=== PATIENT | female | born 1950 | race Caucasian/White ===

== ENCOUNTER → 2016-09-25 | Outpatient (CLI) | payer MEDICARE, OTHER ==
[~2016-09-25] MED LIST: ASPI-808 PO; AZIT500T PO; CEFD300C3 PO; DIPH25CA79 PO; IPRA3AMP INH; MOME13HF INH; PRED10TA22 PO; SERT50TA9 PO; [UNRECOGNIZED DRUG - CODE] MC
--- NOTE | 2016-09-25 14:16 | Diagnostic Imaging Report ---
PROCEDURE: US Thyroid. TECHNIQUE: Multiple real-time grayscale images were obtained of the thyroid in various projections. INDICATION: Thyroid nodule followup. FINDINGS: The right thyroid lobe is 3.1 x 1.9 x 1.4 cm. The left lobe is 3.3 x 1.3 x 1.2 cm. In the lower aspect of the right lobe, there is a 1.5 x 1 x 1 cm calcified nodule with solid appearance and no significant vascularity. In the lower aspect of the left lobe, a 0.6 cm calcified nodule is seen. When compared to 04/14/2016 exam, no significant change is seen. The background parenchyma is heterogenous which could be sequela of prior thyroiditis or multinodular goiter. IMPRESSION: Stable calcified 1.5 cm inferior right thyroid lobe nodule and subcentimeter calcification in the lower left thyroid lobe. Dictated by: Dictated on workstation # [id number]
== END ==
LOC: RAD 12:25
PROVIDERS: ATTEND Family Medicine
DX: E04.1 Nontoxic single thyroid nodule (principal)
CPT/HCPCS: 76536

== ENCOUNTER → 2016-10-05 | Outpatient (CLI) | payer MEDICARE, OTHER ==
[~2016-10-05] VITALS: Ht 160 cm; Wt 68.0 kg
[2016-10-05 14:25] VITALS: BP 120/78
[2016-10-05] MEDS: LIDOCAINE 1% INJ 20 ML (XYLOCAINE) VIAL INJ ONE (14:44)
[2016-10-05 15:06] VITALS: BP 120/80
--- NOTE | 2016-10-05 16:29 | Diagnostic Imaging Report ---
EXAMINATION: US-guided fine needle biopsy-thyroid. INDICATION: Right thyroid nodule. CONSENT: Informed consent was obtained from the patient. The risks, benefits, potential complications and alternatives were reviewed and all questions answered to the patient's satisfaction. FINDINGS: Calcified right thyroid nodule. PROCEDURE: After sterile preparation and draping, 1% lidocaine was utilized for local anesthesia. A 25-gauge hypodermic needle is introduced into the right thyroid nodule under live ultrasound guidance. After confirming adequate positioning with saved ultrasound images, multiple passes of fine needle aspiration is performed and repeated 3 times. The patient tolerated the procedure well with no immediate complications. IMPRESSION: Successful US-guided fine needle aspiration biopsy of right thyroid nodule. Dictated by: Dictated on workstation # [id number]
== END ==
LOC: RAD 13:36
PROVIDERS: ATTEND Family Medicine
DX: E04.1 Nontoxic single thyroid nodule (principal)
CPT/HCPCS: 76942

== ENCOUNTER → 2016-10-19 | Outpatient (CLI) | payer MEDICARE, OTHER ==
[~2016-10-19] VITALS: Ht 160 cm; Wt 81.6 kg
== END ==
LOC: PREOP 07:00
PROVIDERS: ATTEND Surgery
DX: Z01.818 Encounter for other preprocedural examination (principal); Z12.11 Encounter for screening for malignant neoplasm of colon; Z79.82 Long term (current) use of aspirin

== ENCOUNTER 2016-10-23 11:13 | Day surgery (SDC) | payer MEDICARE, OTHER ==
[~2016-10-23] VITALS: Ht 160 cm; Wt 81.6 kg
[2016-10-23] MEDS ORDERED: NS IV 500 ML 500 ML ONE (11:26)
[2016-10-23 11:30] VITALS: BP 132/74
[2016-10-23] MEDS ORDERED: NS IV 500 ML 500 ML IV ONE (11:45)
[2016-10-23] MEDS ORDERED: FLUMAZENIL (ROMAZICON) 0.1 MG/ML 5 ML VIAL INJ PRN (11:45)
[2016-10-23] MEDS ORDERED: NALOXONE 0.4 MG/ML 1 ML (NARCAN) VIAL IVP PRN (11:45)
[2016-10-23] MEDS ORDERED: MOME13HF IH (12:05)
[2016-10-23] MEDS ORDERED: RANI-515 PO (12:05)
[2016-10-23] MEDS ORDERED: ASPI-999 PO (12:05)
[2016-10-23] MEDS ORDERED: ATOR40TA70 PO (12:05)
[2016-10-23] MEDS ORDERED: LEVO100T7 PO (12:05)
[2016-10-23] MEDS ORDERED: SERT50TA9 PO (12:05)
[2016-10-23] MEDS ORDERED: ROPI0.5T2 PO (12:05)
[2016-10-23] MEDS ORDERED: MONT10TA24 PO (12:05)
[2016-10-23] MEDS ORDERED: CETI10TA17 PO (12:05)
[2016-10-23] MEDS ORDERED: ACLI400A2 IH (12:05)
[2016-10-23] MEDS ORDERED: fentaNYL INJECTION 100 MCG/2 ML AMP ONE ×2 (12:06→12:07)
[2016-10-23] MEDS ORDERED: MIDAZOLAM 2 MG/2 ML (VERSED) VIAL ONE ×4 (12:07)
[2016-10-23] MEDS: fentaNYL INJECTION 100 MCG/2 ML AMP IVP PRN ×2 (12:16→12:18)
--- NOTE | 2016-10-23 12:16 | Conscious Sedation/ASA ---
Conscious Sedation Pre-Proced Time Reviewed: 11:51 ASA Class: 3 Airway Mallampati Classification: ([place] appropriate class) I. II. III, IV Lungs Heart ASA score ASA 1: a normal healthy patient ASA 2: a patient with a mild systemic disease (mid diabetes, controlled hypertension, obesity ASA 3: a patient with a severe systemic disease that limits activity (angina , COPD, prior Myocardial infarction) ASA 4: a patient with an incapacitating disease that is a constant threat to life (CHF, renal failure) ASA 5: a moribund patient not expected to survive 24 hrs. (ruptured aneurysm) ASA 6: a declared brain patient whose organs are being harvested. For emergent operations, add the letter E after the classification Grade 1 Sedation Plan: Discussed options with patient/fam Note The patient is an appropriate candidate to undergo the planned procedure, sedation, and anesthesia. The patient immediately re-assessed prior to indication. SHERLY GARCIA MD Oct 23, 2016 12:15 pm
[2016-10-23] MEDS: MIDAZOLAM 2 MG/2 ML (VERSED) VIAL IVP PRN ×4 (12:17→12:27)
--- NOTE | 2016-10-23 12:38 | Endoscopy Procedure Report ---
Endoscopy Report Date: Oct 23, 2016 Preoperative Diagnosis: screening Study Performed: Colonoscopy Procedure Instrument: Colonoscope Endo Procedure/Findings Findings 1.: Polyp, Diverticulosis Recommendations: Recommendations: 1.: Colonscopy in 5 years Copy Copies To 1: AMEYA PEREZ XAVIER M MD Oct 23, 2016 12:38 pm
--- NOTE | 2016-10-23 12:40 | Discharge Inst-Simple/Standard ---
Discharge Inst-Standard Discharge Medications New, Converted or Re-Newed RX: Other Patient Instructions/Follow Up Plan of Care/Instructions/FU: repeat colonoscopy in 5 years. To call my office and schedule thyroid surgery Activity as Tolerated: Yes Discharge Diet: No Restrictions SHERLY GARCIA MD Oct 23, 2016 12:40 pm
[2016-10-23 13:00] VITALS: BP 123/52
--- NOTE | 2016-10-23 13:08 | OPERATIVE REPORT ---
DATE OF SERVICE: 10/23/2016 PROCEDURES: 1. Screening colonoscopy. 2. Polypectomy (hot biopsy). SURGEON: Sherly Garcia MD. INDICATION FOR PROCEDURE: This lady came in for screening colonoscopy. Informed consent was obtained after reviewing the procedure in detail. DESCRIPTION OF PROCEDURE: She was placed in left lateral decubitus position and her vital signs were monitored. Conscious sedation was achieved using Versed and fentanyl. Digital rectal examination was unremarkable. The colonoscope was then introduced into the rectum and advanced all the way up to the cecum. The scope was then withdrawn slowly and the mucosa examined in a systematic fashion. The quality of bowel preparation was excellent. FINDINGS: 1. Very few sigmoid diverticula. 2. A 1 mm polyp at the ascending colon that was excised with hot biopsy forceps. She tolerated the procedure well and was taken back to the nursing area in a stable condition. IMPRESSION: Screening colonoscopy. A 1 mm right colon polyp excised. Recommend repeating in 5 years. Job ID: [id number] DocumentID: [id number] Dictated Date: 10/23/2016 12:37:48 Team Assembler Date: 10/23/2016 13:08:30 Dictated By: SHERLY GARCIA MD
[2016-10-23 13:25] VITALS: BP 89/56
[2016-10-23 13:35] VITALS: BP 89/56
== END 2016-10-23 14:15 | disposition home or self-care (01) ==
LOC: ENDO 11:13
PROVIDERS: ATTEND Surgery
DX: Z12.11 Encounter for screening for malignant neoplasm of colon (principal); K63.5 Polyp of colon; E03.9 Hypothyroidism, unspecified; Z79.899 Other long term (current) drug therapy

== ENCOUNTER 2016-11-01 09:08 | Outpatient (CLI) | payer MEDICARE, OTHER ==
[~2016-11-01] VITALS: Ht 160 cm; Wt 84.4 kg
[~2016-11-01 09:08] MED LIST changes: +ACLI400A2 IH; +ASPI-999 PO; +ATOR40TA70 PO; +CETI10TA17 PO; +LEVO100T7 PO; +MOME13HF IH; +MONT10TA24 PO; +RANI-515 PO; +ROPI0.5T2 PO
[2016-11-01] MEDS ORDERED: RANI150T15 PO (09:18)
[2016-11-01 09:20] VITALS: BP 115/64
[2016-11-01 09:52] LABS: BASOPHILS % (AUTO) 0 % (0-10); EOSINOPHILS # (AUTO) 0.3 10^3/uL (0.0-0.3); EOSINOPHILS % (AUTO) 4 % (0-10); LYMPHOCYTES # (AUTO) 1.7 X 10^3 (1.0-4.0); LYMPHOCYTES % (AUTO) 19 % (12-44); MEAN CORPUSCULAR HEMOGLOBIN 31 PG (25-34); MEAN CORPUSCULAR HGB CONC 32 G/DL (32-36); MEAN CORPUSCULAR VOLUME 96 FL (80-99); MEAN PLATELET VOLUME 9.9 FL (7.4-10.4); MONOCYTES # (AUTO) 0.6 X 10^3 (0.0-1.0); MONOCYTES % (AUTO) 7 % (0-12); NEUTROPHILS % (AUTO) 70 % (42-75); PLATELET COUNT 256 10^3/uL (130-400); RED CELL DISTRIBUTION WIDTH 13.1 % (10.0-14.5); WHITE BLOOD COUNT 8.6 10^3/uL (4.3-11.0)
[2016-11-01 10:11] LABS: ANION GAP 9 MMOL/L (5-14); BLOOD UREA NITROGEN 13 MG/DL (7-18); BUN/CREATININE RATIO 15; CALCIUM 9.4 MG/DL (8.5-10.1); CARBON DIOXIDE 28 MMOL/L (21-32); CHLORIDE 104 MMOL/L (98-107); CREATININE SERUM 0.88 MG/DL (0.60-1.30); GFR ESTIMATED > 60; GLUCOSE 181 MG/DL (70-105); POTASSIUM 4.4 MMOL/L (3.6-5.0); SODIUM 141 MMOL/L (135-145)
== END 2016-11-01 11:30 ==
LOC: PREOP 09:08
PROVIDERS: ATTEND Surgery
DX: Z01.812 Encounter for preprocedural laboratory examination (principal); Z11.2 Encounter for screening for other bacterial diseases; E04.1 Nontoxic single thyroid nodule
CPT/HCPCS: 36415; 80048; 85025; 87081

== ENCOUNTER 2016-11-08 07:30 | Day surgery (SDC) | payer MEDICARE, OTHER ==
[~2016-11-08] VITALS: Ht 160 cm; Wt 84.4 kg
[~2016-11-08 07:30] MED LIST changes: +RANI150T15 PO
[2016-11-08] MEDS ORDERED: BUP/EPI 0.25% 1:200,000 (MARCAINE) 10 ML VIAL IJ ONE (07:36)
[2016-11-08] MEDS ORDERED: THROMBIN SPRAY KIT 5,000 UNIT VIAL ONE (07:36)
[2016-11-08] MEDS ORDERED: ceFAZolin 1,000 MG (ANCEF) VIAL ONE (07:44)
[2016-11-08] MEDS ORDERED: NS (IVPB) 50 ML ONE (07:45)
[2016-11-08] MEDS ORDERED: FAMOTIDINE 20MG/2ML IV (PEPCID) ONE (07:56)
[2016-11-08] MEDS ORDERED: CATHETER FLUSH 10 ML SYR IV PRN (08:00)
[2016-11-08] MEDS ORDERED: ceFAZolin 1 GM/NS 50 ML IVPB IV ONE ×2 (08:00)
[2016-11-08] MEDS ORDERED: LACTATED RINGERS 1,000 ML IV PRN (08:04)
[2016-11-08 08:06] VITALS: BP 128/55
[2016-11-08] MEDS ORDERED: FAMOTIDINE 20MG/2ML IV (PEPCID) IV ONE (08:15)
--- NOTE | 2016-11-08 08:22 | Progress Note-Pre Operative ---
Pre-Operative Progress Note H&P Reviewed The H&P was reviewed, patient examined and no changes noted. Date Seen by Provider: Nov 08, 2016 Time Seen by Provider: 08:21 Date H&P Reviewed: Nov 08, 2016 Time H&P Reviewed: 08:16 Pre-Operative Diagnosis: Bilateral thyroid nodules SHERLY GARCIA MD Nov 08, 2016 8:22 am
[2016-11-08] MEDS ORDERED: fentaNYL INJECTION 100 MCG/2 ML AMP ONE ×2 (08:24→09:07)
[2016-11-08] MEDS ORDERED: MIDAZOLAM 2 MG/2 ML (VERSED) VIAL ONE (08:24)
[2016-11-08] MEDS ORDERED: SEVOFLURANE (ULTANE) 15 ML INHAL SOLN ONE ×6 (08:24→10:32)
[2016-11-08] MEDS ORDERED: DEXAMETHASONE PF 10 MG/ML (DECADRON) VIAL ONE (08:29)
[2016-11-08] MEDS ORDERED: ONDANSETRON 4 MG/2 ML (SDV) Z0FRAN ONE (08:29)
[2016-11-08] MEDS ORDERED: SUCCINYLCHOLINE INJ 100 MG/5 ML SYR ONE (08:29)
[2016-11-08] MEDS ORDERED: LACTATED RINGERS 1,000 ML IV ONE (08:29)
[2016-11-08] MEDS ORDERED: LIDOCAINE 4% INJ (XYLOCAINE) 5ML AMP ONE (10:07)
--- NOTE | 2016-11-08 10:25 | Operative Report ---
Operative Report Date of Procedure/Surgery Nov 08, 2016 Surgeon (s) SHERLY GARCIA MD Machine Cementer (s): Not applicable Post-Operative Diagnosis Bilateral thyroid nodules Procedure Performed 1. Total thyroidectomy 2. Intraoperative nerve monitoring Description of Procedure Anesthesia Type: General Estimated blood loss (mL): 100 mL Specimen(s) collected/removed Both lobes of thyroid Description of the Procedure Indication for procedure: Evaluation for hypothyroidism included an ultrasound of the thyroid gland conforming calcified nodules involving both lobes of the thyroid, the one on the right side being about 1.5 cm in diameter. Ultrasound- guided needle biopsy was nondiagnostic, possibly due to the calcified nature of the nodule. It was therefore felt reasonable to proceed with thyroidectomy to establish a definitive diagnosis. Informed consent was obtained after reviewing the operative details and highlighting increased incidence of hematoma , due to aspirin therapy, postoperative hypocalcemia and transient hoarseness of voice. Description of procedure: She was placed supine on the operative table and general anesthesia induced using an endotracheal tube. A gram of Ancef was administered intravenously as prophylaxis against wound infection. Sequential compression devices were placed around her legs, to minimize the risk of venous thrombosis. Her neck and upper chest were prepared and draped in the usual sterile manner. Pre-emptive analgesia was established using 0.25 percent Marcaine with epinephrine. A 4 cm transverse incision was made along the skin crease of the neck and platysma incised transversely. Flaps were raised superiorly to the level of the thyroid cartilage and inferiorly to the level of the sternal notch. A few tributaries of the anterior jugular vein had to be controlled with ligaclips. I began the dissection on the left side. The lobe was retracted medially after retracting the strap muscles in a lateral direction. Middle thyroid vein was identified and controlled using Harmonic scalpel. Superior thyroid artery was controlled between 0 silk sutures, reinforced with ligaclips. Multiple branches of the inferior thyroid artery were controlled with a combination of ligaclips and Harmonic scalpel. Recurrent laryngeal nerve was identified and protected by constant visual inspection and intermittent nerve stimulation. At least one parathyroid gland was identified and preserved, along with its blood supply. The isthmus was then divided using Harmonic scalpel and the left lobe sent separately for histological examination. A similar dissection was performed on the right side. A heavily calcified nodule was apparent along the lateral aspect of the lobe. Recurrent nerve was found in its conventional position and protected by constant visual inspection and intermittent nerve stimulation technique. Both parathyroids were identified and preserved along with their blood supply. Right lobe was then sent for histologic examination separately. We had the anesthesiologist conduct Valsalva maneuver, looking for any venous bleeding. There wasn't any. Gelfoam, soaked in thrombin solution was placed along the tracheo-esophageal groove, to optimize hemostasis. Neck was then flexed, in preparation for closure. Cervical fascia was approximated using 3-0 Vicryl and platysma using the same suture material. Skin was closed using 4-0 Vicryl, in a subcuticular fashion. She tolerated the procedure well, was extubated in the operating room and taken to recovery room in a stable condition. [place], sponges and instruments were correct at the end of the operation. Findings of the Procedure Calcified bilateral thyroid nodules Allergies and Home Medications Allergies Coded Allergies: No Known Drug Allergies (Unverified , 11/01/16) Home Medications Aclidinium [place] 400 Mcg Aer.pow.ba, 400 MCG IH DAILY, (Reported) Aspirin 81 Mg Tab.chew, 81 MG PO DAILY, (Reported) Atorvastatin Calcium 40 Mg Tablet, 40 MG PO DAILY, (Reported) Cetirizine HCl 10 Mg Tablet, 10 MG PO DAILY, (Reported) Levothyroxine Sodium 100 Mcg Tablet, 100 MCG PO DAILY, (Reported) Mometasone/Formoterol 13 Gm Hfa.aer.ad, 2 PUFF IH BID, (Reported) Montelukast Sodium 10 Mg Tablet, 10 MG PO DAILY, (Reported) Ranitidine HCl 150 Mg Tablet, 150 MG PO DAILY, (Reported) Ranitidine HCl 150 Mg Tablet, 150 MG PO DAILY, (Reported) Ropinirole HCl 0.5 Mg Tablet, 0.5 MG PO DAILY, (Reported) Sertraline HCl 50 Mg Tablet, 50 MG PO HS, (Reported) SHERLY GARCIA MD Nov 08, 2016 10:25 am
[2016-11-08] MEDS ORDERED: LACTATED RINGERS 1,000 ML IV SCH (10:26)
[2016-11-08] MEDS ORDERED: LABETALOL HCL 20 MG/4 ML VIAL ONE (10:28)
[2016-11-08] MEDS ORDERED: HYDR-3812 PO ×2 (10:29→11:36)
[2016-11-08] MEDS ORDERED: fentaNYL INJECTION 100 MCG/2 ML AMP IVP PRN ×2 (10:30→10:45)
[2016-11-08] MEDS ORDERED: ONDANSETRON 4 MG/2 ML (SDV) Z0FRAN IVP PRN (10:30)
--- NOTE | 2016-11-08 10:30 | Discharge Inst-Simple/Standard ---
Discharge Inst-Standard Discharge Medications New, Converted or Re-Newed RX: RX on Chart Patient Instructions/Follow Up Plan of Care/Instructions/FU: Dressings off in a.m. Follow-up in 3 weeks. Activity as Tolerated: Yes Discharge Diet: No Restrictions SHERLY GARCIA MD Nov 08, 2016 10:30 am
[2016-11-08] MEDS ORDERED: CALCIUM CARBONATE 600 MG (CALCARB) TAB PO NR (11:30)
[2016-11-08 11:50] VITALS: BP 177/80
[2016-11-08] MEDS ORDERED: CHOL10007 PO (12:50)
[2016-11-08] MEDS: HYDROcodone/APAP 5 MG/325 MG (LORTAB) TAB PO PRN ×2 (15:03→21:10)
[2016-11-08 16:00] VITALS: BP 124/75
--- OUTSIDE RECORDS SUMMARY | 2016-11-08 17:55 | XMS REPORT | Continuity of Care Document ---
Author Author [facility] Organization [facility] Address Unknown Phone Unavailable Care Team Providers Care Tailor Women'S [employer]teration Name Role Phone Holli Salvador PCP [phone] Source Comments Some departments are not documenting in the electronic medical record. If you do not see the information that you expected, contact Release of Information in the Health Information Management department at [phone] for further assistance in locating additional records.[facility] Active Allergies and Adverse Reactions No Known Allergies Current Medications Prescription Sig. Disp. Refills Start End Date Status Date diphenhydrAMINE Take 25 mg by mouth every Active (BENADRYL) 25 mg capsule 6 hours as needed. albuterol 0.5% Inhale 2.5 mg solution as Active (PROVENTIL; VENTOLIN) 2.5 directed four times mg/0.5 mL nebu nebulizer daily. solution Mometasone-Formoterol Inhale 2 Puffs by mouth Active 200-5 mcg/actuation HFAA daily. sertraline (ZOLOFT) 50 mg Take 50 mg by mouth at Active tablet bedtime daily. Lactobacillus rhamnosus Take 1 Cap by mouth Active GG (LACTOBACILLUS daily. RHAMNOSUS (GG)) 15 billion cell cpSP ranitidine(+) (ZANTAC) Take 150 mg by mouth Active 150 mg tablet daily. aspirin 81 mg chewable Take 1 Tab by mouth 90 Tab 3 08/10/19 Active tablet daily. 16 atorvastatin (LIPITOR) 40 Take 1 Tab by mouth 90 Tab 3 08/10/19 Active mg tablet daily. 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 08/07/2015 Stroke (HCC) 08/06/2015 Respiratory failure with hypoxia (HCC) 08/06/2015 Immunizations Name Dates Previously Given Next Due Pneumococcal Vaccine 08/09/2015 (23-[place] Adult) Social History Tobacco Use Types Packs/Day Years Used Date Former Smoker Alcohol Use Drinks/Week oz/Week Comments No Last Filed Vital Signs Vital Sign Reading Time Taken Blood Pressure 133/59 08/10/2015 1:30 PM CDT Pulse 101 08/10/2015 1:30 PM CDT Temperature 36.9 C (98.4 F) 08/10/2015 1:30 PM CDT Respiratory Rate - - Height 1.6 m (5' 2.99") 08/09/2015 10:17 AM CDT Weight 68.04 kg (150 lb) 08/09/2015 10:17 AM CDT Body Mass Index 26.58 08/09/2015 10:17 AM CDT Oxygen Saturation 94% 08/10/2015 1:30 PM CDT Plan of Care Health Maintenance Due Date Last Done Comments Hepatitis C Screening 1950 Physical (Comprehensive) 1958 Exam Pertussis Vaccine 1962 Tetanus Vaccine 1968 Breast Cancer Screening 1991 Colorectal Cancer 2001 Screening Shingles Vaccine 2011 Osteoporosis Screening 2016 Prevnar/Pneumovax (#1) 2016 08/09/2015 Influenza Vaccine 01/05/2017 Results from Last 3 Months Not on file
[2016-11-08 20:00] VITALS: BP 119/76
[2016-11-08] MEDS ORDERED: rOPINIRole 0.25 MG (REQUIP) TAB PO SCH (21:00)
[2016-11-08] MEDS ORDERED: SERTRALINE 50 MG (ZOLOFT) TABLET PO SCH (21:00)
[2016-11-08] MEDS ORDERED: RT-SYMBICORT 160/4.5 MCG INHALER PER PUFF IH SCH (21:00)
[2016-11-08] MEDS ORDERED: MONTELUKAST 10 MG (SINGULAIR) TAB PO SCH (21:00)
[2016-11-08] MEDS ORDERED: ATORVASTATIN 40 MG (LIPITOR) TABLET PO SCH (21:00)
[2016-11-08] MEDS ORDERED: NON-FORMULARY MEDICATION 1 EA EA (Mometasone/Formoterol (Dulera 200 Mcg/5 Mcg Inhaler) 2 P IH SCH (21:00)
[2016-11-08] MEDS ORDERED: NON-FORMULARY MEDICATION 1 EA EA (Ropinirole HCl 0.5 MG) PO SCH (21:00)
[2016-11-08] MEDS ORDERED: FAMOTIDINE 20 MG (PEPCID) TABLET PO SCH (21:00)
[2016-11-09 00:35] VITALS: BP 126/57
[2016-11-09 04:00] VITALS: BP 114/63
[2016-11-09] MEDS: HYDROcodone/APAP 5 MG/325 MG (LORTAB) TAB PO PRN (05:25)
[2016-11-09 05:39] LABS: ANION GAP 9 MMOL/L (5-14); BLOOD UREA NITROGEN 16 MG/DL (7-18); BUN/CREATININE RATIO 19; CALCIUM 8.4 MG/DL (8.5-10.1); CARBON DIOXIDE 27 MMOL/L (21-32); CHLORIDE 105 MMOL/L (98-107); CREATININE SERUM 0.83 MG/DL (0.60-1.30); GFR ESTIMATED > 60; GLUCOSE 133 MG/DL (70-105); POTASSIUM 4.2 MMOL/L (3.6-5.0); SODIUM 141 MMOL/L (135-145)
[2016-11-09] MEDS ORDERED: LEVOTHYROXINE 100 MCG (LEVOTHROID) TAB PO SCH (06:30)
[2016-11-09 08:00] VITALS: BP 105/51
[2016-11-09] MEDS ORDERED: UMECLIDINIUM BROMIDE (INCRUSE ELLIPTA) 7'S IH SCH (08:00)
[2016-11-09] MEDS ORDERED: FAMOTIDINE 20 MG (PEPCID) TABLET PO SCH (09:00)
[2016-11-09] MEDS ORDERED: raNItidine (ZANTAC) 150 MG TAB NON-FORMULARY PO SCH (09:00)
[2016-11-09] MEDS ORDERED: LORATADINE (CLARITIN) 10 MG TAB PO SCH (09:00)
[2016-11-09] MEDS ORDERED: ACLIDINIUM BROMIDE 400 MCG IH SCH (09:00)
[2016-11-09] MEDS ORDERED: VITAMIN D3 1,000 UNITS (CHOLECALCIFEROL) TABLET PO SCH (09:00)
[2016-11-09] MEDS ORDERED: ASPIRIN 81 MG CHEW (CHILDREN'S ASA) PO SCH (09:00)
[2016-11-09] MEDS ORDERED: NON-FORMULARY MEDICATION 1 EA EA (Cholecalciferol (Vitamin D3) (Vitamin D3) 1,000 UNIT) PO SCH (09:00)
[2016-11-09] MEDS ORDERED: NON-FORMULARY MEDICATION 1 EA EA (Cetirizine HCl 10 MG) PO SCH (09:00)
[2016-11-09] MEDS ORDERED: RT-ADVAIR HFA 115/21 MCG PER PUFF IH SCH (09:55)
[2016-11-09 10:45] VITALS: BP 105/51
== END 2016-11-09 10:48 | disposition home or self-care (01) ==
LOC: SDC 07:30 → 4TH 11:54 → ENPENDDIS 11-09 10:00 → SDC 11-09 10:48
PROVIDERS: ATTEND Surgery
DX: E04.1 Nontoxic single thyroid nodule (principal); Z87.891 Personal history of nicotine dependence; J44.9 Chronic obstructive pulmonary disease, unspecified; E03.9 Hypothyroidism, unspecified; E78.5 Hyperlipidemia, unspecified; F32.9 Major depressive disorder, single episode, unspecified; K21.9 Gastro-esophageal reflux disease without esophagitis; E66.9 Obesity, unspecified; Z86.73 Personal history of transient ischemic attack (TIA), and cerebral infarction without residual deficits; Z68.33 Body mass index [BMI] 33.0-33.9, adult; Z79.899 Other long term (current) drug therapy; Z79.82 Long term (current) use of aspirin
CPT/HCPCS: 36415; 80048; 88307; 88311; 94664; 94760

== ENCOUNTER → 2016-11-14 | Outpatient (CLI) | payer MEDICARE, OTHER ==
[~2016-11-14] MED LIST changes: +CHOL10007 PO; +HYDR-3812 PO
--- NOTE | 2016-11-14 12:54 | Diagnostic Imaging Report ---
EXAMINATION: PA and lateral views of the chest. INDICATION: Cough and dyspnea. COMPARISON: 08/02/2015. FINDINGS: The lungs are hyperinflated. There is interstitial thickening in the mid and lower lung zones similar to 08/02/2015. No superimposed focal infiltrate. No effusion or pneumothorax. The heart size is slightly enlarged with minimal vascular congestion. The mediastinum and dilan appear unremarkable. IMPRESSION: COPD. Cardiomegaly with minimal vascular congestion. Report was stat faxed to office of Dr. Salvador @ 12:52 PM/adilson. Dictated by: Dictated on workstation # [id number]
== END ==
LOC: RAD 11:25
PROVIDERS: ATTEND Family Medicine
DX: J44.9 Chronic obstructive pulmonary disease, unspecified (principal); I51.7 Cardiomegaly
CPT/HCPCS: 71020

== ENCOUNTER → 2016-12-21 | Outpatient (CLI) | payer MEDICARE, OTHER | LOC: LAB 11:28 | PROVIDERS: ATTEND Surgery | DX: E89.0 Postprocedural hypothyroidism (principal) | CPT/HCPCS: 36415; 84436; 84443 ==

== ENCOUNTER → 2017-01-22 | Outpatient (CLI) | payer MEDICARE, OTHER ==
--- NOTE | 2017-01-22 10:55 | Diagnostic Imaging Report ---
EXAMINATION: Left breast ultrasound. INDICATION: Left breast lesion at the 2 o'clock zone, followup. FINDINGS: There is a 5 x 6 x 5 mm hypoechoic lesion at the 2 o'clock zone with increased through-transmission and no internal vascularity seen. This is 4 cm from the nipple. Some images do not demonstrate the borders very well but the borders appear to be circumscribed. When compared to the previous exam of 05/05/2016, no definite change is seen. IMPRESSION: The 6 mm hypoechoic lesion at the 2 o'clock zone is favored to be a complicated cyst with internal debris. Its depth slightly limits evaluation. A 6 month followup ultrasound and mammogram would be recommended to reevaluate. ACR BI-RADS Category 3: Probably benign findings. Dictated by: Dictated on workstation # [id number]
--- NOTE | 2017-01-25 08:26 | Diagnostic Imaging Report ---
Left breast diagnostic mammogram. CAD is utilized. 05/05/2016. FINDINGS: Focal asymmetry along the upper outer aspect of the left breast is again seen with no adverse development. It is inseparable from adjacent parenchyma on tomographic views. IMPRESSION: Focal asymmetry in the upper outer aspect of the left breast demonstrates no significant change. Ultrasound evaluation pending. ACR BI-RADS Category 0: Incomplete. (Needs additional imaging evaluation). Result letter will be mailed to the patient. Note: At least 10% of breast cancer is not imaged by mammography. Dictated by: Dictated on workstation # [id number]
== END ==
LOC: RAD 08:05
PROVIDERS: ATTEND Family Medicine
DX: N60.02 Solitary cyst of left breast (principal)
CPT/HCPCS: 76642

== ENCOUNTER → 2017-06-06 | Outpatient (CLI) | payer MEDICARE, OTHER ==
[~2017-06-06] MED LIST changes: +ACHD5005 PO; -HYDR-3812 PO
== END ==
LOC: LAB 13:33
PROVIDERS: ATTEND Surgery
DX: E04.1 Nontoxic single thyroid nodule (principal); R53.83 Other fatigue
CPT/HCPCS: 36415; 84436; 84443

== ENCOUNTER → 2018-01-16 | Outpatient (CLI) | payer MEDICARE, OTHER ==
[~2018-01-16] MED LIST changes: -IPRA3AMP INH; +IPRA3AMP31 INH; -RANI150T15 PO; +RANI150T46 PO
--- NOTE | 2018-01-16 13:48 | Diagnostic Imaging Report ---
PROCEDURE: US carotid duplex, bilateral. TECHNIQUE: Multiple real-time grayscale images were obtained over the carotid arteries in various projections, bilaterally. Additional duplex Doppler and color Doppler images were also obtained. INDICATION: Carotid artery stenosis. FINDINGS: Both common carotid arteries demonstrate normal velocities. No flow is identified in the right internal carotid artery, consistent with ICA occlusion. There is plaque in the proximal left ICA. Only mild velocity elevation in the proximal left ICA is seen reaching 135 cm/s. External carotid arteries are unremarkable. Both vertebral arteries demonstrate antegrade flow. IMPRESSION: 1. Right ICA occlusion. 2. Mild left carotid plaque. No hemodynamically significant stenosis is identified. Parameters based on the consensus panel Mcbride-Scale and Doppler ultrasound criteria published March 2003, Radiology, Volume 229. DOPPLER (peak systolic velocity M/S Right Left CCA .61 .87 ICA Proximal N/A 1.35 ICA Mid N/A 1.01 ICA Distal N/A .81 RATIO N/A 1.6 ECA .59 .85 VERT .76 .74 Dictated by: Dictated on workstation # [id number]
== END ==
LOC: RAD 12:19
PROVIDERS: ATTEND Family Medicine
DX: I65.23 Occlusion and stenosis of bilateral carotid arteries (principal)
CPT/HCPCS: 93880

== ENCOUNTER 2018-03-15 16:17 | Inpatient (IN) | payer MEDICARE, OTHER ==
[2018-03-15] VITALS (8 sets, daily range): BP systolic 91–125; BP diastolic 48–66
[~2018-03-15] VITALS: Ht 160 cm; Wt 108.0 kg
--- OUTSIDE RECORDS SUMMARY | 2018-03-15 16:22 | XMS REPORT | Clinical Summary ---
Author Author [facility] Organization [facility] Address Unknown Phone Unavailable Care Team Providers Care Pressing Department Supervisor Name Role Phone Nandini Dickey RN Unavailable Unavailable Holli Salvador MD PCP Renetta Suárez DO Unavailable Unavailable Source Comments Some departments are not documenting in the electronic medical record. If you do not see the information that you expected, contact Release of Information in the Health Information Management department at [phone] for further assistance in locating additional records.[facility] Allergies No Known Allergies Current Medications Prescription Sig. [...] Smoker Alcohol Use Drinks/Week oz/Week Comments No Sex Assigned at Date Recorded Not on file Last Filed Vital Signs Vital Sign Reading Time Taken Blood Pressure 133/59 08/10/2015 1:30 PM CDT Pulse 101 08/10/2015 1:30 PM CDT Temperature 36.9 C (98.4 F) 08/10/2015 1:30 PM CDT Respiratory Rate - - Oxygen Saturation 94% 08/10/2015 1:30 PM CDT Inhaled Oxygen - - Concentration Weight 68 kg (150 lb) 08/09/2015 10:17 AM CDT Height 160 cm (5' 2.99") 08/09/2015 10:17 AM CDT Body Mass Index 26.58 08/09/2015 10:17 AM CDT Plan of Treatment Health Maintenance Due Date Last Done Comments HEPATITIS C SCREENING 1950 PHYSICAL (COMPREHENSIVE) 1958 EXAM PERTUSSIS VACCINE 1962 TETANUS VACCINE 1968 BREAST CANCER SCREENING 1991 COLORECTAL CANCER 2001 SCREENING SHINGLES RECOMBINANT 2001 VACCINE (1 of 2) OSTEOPOROSIS 2016 SCREENING/MONITORING PNEUMONIA (PCV13/PPSV23) 08/08/2016 08/09/2015 VACCINES (1 of 2 - PCV13) INFLUENZA VACCINE 12/05/2017 Results Not on filefrom Last 3 Months
--- OUTSIDE RECORDS SUMMARY | 2018-03-15 16:23 | XMS REPORT | Continuity of Care Document ---
Author Author [facility] Organization [facility] Address Unknown Phone Unavailable Allergies Active Description Code Type Severity Reaction Onset Reported/Identified Relationship to Patient Clinical Status Yes No Known Drug Allergies [id number] Drug Allergy Unknown N/A 11/01/2016 Medications There is no data. Problems Date Dx Coded Attending Type Code Diagnosis Diagnosed By 08/03/2015 Ot 305.1 08/03/2015 Ot 786.09 08/03/2015 AMEYA PEREZ DO S Ot D72.829 08/03/2015 DAVID PEREZ DOQUELINE S Ot F17.210 08/03/2015 KLAUDIANDDAVID TARANGO DOQUELINE S Ot F43.21 08/03/2015 KLAUDIANDSUKHDEEP DODAVIDAMEYA S Ot J20.9 08/03/2015 KLAUDIANDSUKHDEEP DODAVIDAMEYA S Ot J44.0 08/03/2015 KLAUDIANDSUKHDEEP DODAVIDAMEYA S Ot R00.0 08/03/2015 KLAUDIANDSUKHDEEP DODAVIDAMEYA S Ot R09.02 08/03/2015 KLAUDIANDSUKHDEEP DODAVIDAMEYA S Ot T49.0X5A 08/03/2015 KLAUDIANDSUKHDEEP DODAVIDAMEYA S Ot D72.829 08/03/2015 KLAUDIANDSUKHDEEP DODAVIDAMEYA S Ot F17.210 08/03/2015 KLAUDIANDER DO AMEYA S Ot F43.21 08/03/2015 KLAUDIANDER DODAVIDAMEYA S Ot J20.9 08/03/2015 KLAUDIANDSUKHDEEP DODAVIDAMEYA S Ot J44.0 08/03/2015 KLAUDIANDSUKHDEEP DODAVIDAMEYA S Ot R00.0 08/03/2015 KLAUDIANDER DODAVIDAMEYA S Ot R09.02 08/03/2015 KLAUDIANDSUKHDEEP DODAVIDAMEYA S Ot T49.0X5A 08/05/2015 KLAUDIANDDAVID TARANGO DOQUELINE S Ot D72.829 ELEVATED WHITE BLOOD CELL COUNT, UNSPECI 08/05/2015 HARVINDER PEREZ DOLINE S Ot F17.210 NICOTINE DEPENDENCE, CIGARETTES, UNCOMPL 08/05/2015 HARVINDER PEREZ DOLINE S Ot F43.21 ADJUSTMENT DISORDER WITH DEPRESSED MOOD 08/05/2015 CHRIS GALDAMEZ, AMEYA S Ot I65.23 OCCLUSION AND STENOSIS OF BILATERAL WALLS 08/05/2015 KLAUDIANDHARVINDER TARANGO DOLINE S Ot I65.29 OCCLUSION AND STENOSIS OF UNSPECIFIED CA 08/05/2015 KLAUDIANDSUKHDEEP GALDAMEZ, AMEYA S Ot J20.9 ACUTE BRONCHITIS, UNSPECIFIED 08/05/2015 CHRIS GALDAMEZ, AMEYA S Ot J44.0 CHRONIC OBSTRUCTIVE PULMON DISEASE W ACU 08/05/2015 CHRIS GALDAMEZ, AMEYA S Ot J80 ACUTE RESPIRATORY DISTRESS SYNDROME 08/05/2015 CHRIS GALDAMEZ, AMEYA S Ot R00.0 TACHYCARDIA, UNSPECIFIED 08/05/2015 CHRIS GALDAMEZ, AMEYA S Ot R09.02 08/05/2015 HARVINDER PEREZ DOLINE S Ot T49.0X5A ADVERSE EFFECT OF LOCAL ANTIFUNG/INFECT/ 09/08/2015 Ot 305.1 TOBACCO USE DISORDER 09/08/2015 Ot 786.09 RESPIRATORY ABNORM NEC 09/09/2015 SEYMOUR CHAIREZ [employer] TURNING MACHINE FEEDER Ot G47.9 SLEEP DISORDER, UNSPECIFIED 09/09/2015 SEYMOUR CHAIREZ [employer] TURNING MACHINE FEEDER Ot I63.9 CEREBRAL INFARCTION, UNSPECIFIED 09/09/2015 SEYMOUR CHAIREZ [employer] TURNING MACHINE FEEDER Ot R06.02 SHORTNESS OF BREATH 09/09/2015 SEYMOUR CHAIREZ AIR TURNING MACHINE FEEDER Ot R09.02 HYPOXEMIA 09/09/2015 SEYMOUR CHAIREZ AIR TURNING MACHINE FEEDER Ot G47.9 SLEEP DISORDER, UNSPECIFIED 09/09/2015 SEYMOUR CHAIREZ AIR TURNING MACHINE FEEDER Ot I63.9 CEREBRAL INFARCTION, UNSPECIFIED 09/09/2015 SEYMOUR CHAIREZ AIR TURNING MACHINE FEEDER Ot R06.02 SHORTNESS OF BREATH 09/09/2015 SEYMOUR CHAIREZ AIR TURNING MACHINE FEEDER Ot R09.02 HYPOXEMIA 10/01/2015 SEYMOUR CHAIREZ AIR TURNING MACHINE FEEDER Ot G47.9 SLEEP DISORDER, UNSPECIFIED 10/01/2015 SEYMOUR CHAIREZ AIR TURNING MACHINE FEEDER Ot I63.9 CEREBRAL INFARCTION, UNSPECIFIED 10/01/2015 MIHAELA, SEYMOUR E AIR TURNING MACHINE FEEDER Ot R06.02 SHORTNESS OF BREATH 10/01/2015 GABI CHAIREZINE Maxwell AIR TURNING MACHINE FEEDER Ot R09.02 HYPOXEMIA 10/02/2015 MIHAELA, SEYMOUR Maxwell [employer] TURNING MACHINE FEEDER Ot G47.9 SLEEP DISORDER, UNSPECIFIED 10/02/2015 GABI CHAIREZINE Maxwell AIR TURNING MACHINE FEEDER Ot I63.9 CEREBRAL INFARCTION, UNSPECIFIED 10/02/2015 MIHAELA SEYMOUR Maxwell AIR TURNING MACHINE FEEDER Ot R06.02 SHORTNESS OF BREATH 10/02/2015 MIHAELA SEYMOUR E AIR TURNING MACHINE FEEDER Ot R09.02 HYPOXEMIA 10/15/2015 GABI CHAIREZINE Maxwell AIR TURNING MACHINE FEEDER Ot G47.9 SLEEP DISORDER, UNSPECIFIED 10/15/2015 MIHAELA SEYMOUR Maxwell AIR TURNING MACHINE FEEDER Ot I63.9 CEREBRAL INFARCTION, UNSPECIFIED 10/15/2015 MIHAELA SEYMOUR Arreola AIR TURNING MACHINE FEEDER Ot R06.02 SHORTNESS OF BREATH 10/15/2015 GABI CHAIREZINE Maxwell AIR TURNING MACHINE FEEDER Ot R09.02 HYPOXEMIA 10/15/2015 Ot 305.1 TOBACCO USE DISORDER 10/15/2015 Ot 786.09 RESPIRATORY ABNORM NEC 10/15/2015 MIHAELA SEYMOUR Arreola [employer] TURNING MACHINE FEEDER Ot G47.9 SLEEP DISORDER, UNSPECIFIED 10/15/2015 GABI CHAIREZINE Maxwell AIR TURNING MACHINE FEEDER Ot I63.9 CEREBRAL INFARCTION, UNSPECIFIED 10/15/2015 MIHAELA, SEYMOUR Arreola AIR TURNING MACHINE FEEDER Ot R06.02 SHORTNESS OF BREATH 10/15/2015 GABI CHAIREZINE Maxwell AIR TURNING MACHINE FEEDER Ot R09.02 HYPOXEMIA 10/16/2015 MIHAELA, SEYMOUR Arreola [employer] TURNING MACHINE FEEDER Ot G47.36 SLEEP RELATED HYPOVENTILATION IN CONDITI 10/16/2015 GABI CHAIREZINE E AIR TURNING MACHINE FEEDER Ot G47.61 PERIODIC LIMB MOVEMENT DISORDER 10/16/2015 MIHAELA, SEYMOUR E AIR TURNING MACHINE FEEDER Ot R06.83 SNORING 10/26/2015 MIHAELAGABISEYMOUR E AIR TURNING MACHINE FEEDER Ot G47.36 SLEEP RELATED HYPOVENTILATION IN CONDITI 10/26/2015 MIHAELAGABI TARANGOINE E AIR TURNING MACHINE FEEDER Ot G47.61 PERIODIC LIMB MOVEMENT DISORDER 10/26/2015 SEYMOUR CHAIREZ AIR TURNING MACHINE FEEDER Ot R06.83 SNORING 11/18/2015 SEYMOUR CHAIREZ AIR TURNING MACHINE FEEDER Ot R06.02 SHORTNESS OF BREATH 11/18/2015 MIHAELASEYMOUR TARANGO AIR TURNING MACHINE FEEDER Ot R09.02 HYPOXEMIA 12/02/2015 ORENDER DO, AMEYA S Ot I65.23 OCCLUSION AND STENOSIS OF BILATERAL WALLS 01/16/2016 MIHAELASEYMOUR TARANGO AIR TURNING MACHINE FEEDER Ot R06.02 SHORTNESS OF BREATH 01/16/2016 SEYMOUR CHAIREZ AIR TURNING MACHINE FEEDER Ot R09.02 HYPOXEMIA 04/14/2016 Ot 305.1 TOBACCO USE DISORDER 04/14/2016 Ot 786.09 RESPIRATORY ABNORM NEC 04/14/2016 SEYMOUR CHAIREZ AIR TURNING MACHINE FEEDER Ot G47.9 SLEEP DISORDER, UNSPECIFIED 04/14/2016 SEYMOUR CHAIREZ AIR TURNING MACHINE FEEDER Ot I63.9 CEREBRAL INFARCTION, UNSPECIFIED 04/14/2016 SEYMOUR CHAIREZ AIR TURNING MACHINE FEEDER Ot R06.02 SHORTNESS OF BREATH 04/14/2016 SEYMOUR CHAIREZ AIR TURNING MACHINE FEEDER Ot R09.02 HYPOXEMIA 04/14/2016 KLAUDIANDER , AMEYA S Ot I65.23 OCCLUSION AND STENOSIS OF BILATERAL WALLS 04/14/2016 SEYMOUR CHAIREZ AIR TURNING MACHINE FEEDER Ot R06.02 SHORTNESS OF BREATH 04/14/2016 SEYMOUR CHAIREZ AIR TURNING MACHINE FEEDER Ot R09.02 HYPOXEMIA 04/19/2016 KLAUDIANDER DO, AMEYA S Ot E03.9 HYPOTHYROIDISM, UNSPECIFIED 04/19/2016 ORENDER DO, AMEYA S Ot I65.23 OCCLUSION AND STENOSIS OF BILATERAL WALLS 04/19/2016 KLAUDIANDER DO, AMEYA S Ot Z12.31 ENCNTR SCREEN MAMMOGRAM FOR MALIGNANT NE 04/26/2016 KLAUDIANDER DO, AMEYA S Ot E03.9 HYPOTHYROIDISM, UNSPECIFIED 04/26/2016 ORENDER DO, AMEYA S Ot E04.1 NONTOXIC SINGLE THYROID NODULE 04/26/2016 KLAUDIANDER DO, AMEYA S Ot E03.9 HYPOTHYROIDISM, UNSPECIFIED 04/26/2016 ORENDER DO, AMEYA S Ot I65.23 OCCLUSION AND STENOSIS OF BILATERAL WALLS 04/26/2016 ORENDER DO, AMEYA S Ot Z12.31 ENCNTR SCREEN MAMMOGRAM FOR MALIGNANT NE 05/08/2016 KLAUDIANDER DO, AMEYA S Ot N63 UNSPECIFIED LUMP IN BREAST 05/16/2016 KLAUIDANDER DO, AMEYA S Ot E03.9 HYPOTHYROIDISM, UNSPECIFIED 05/16/2016 ORENDER DO, AMEYA S Ot E04.1 NONTOXIC SINGLE THYROID NODULE 05/17/2016 KLAUDIANDHARVINDER TARANGO DOLINE S Ot N63 UNSPECIFIED LUMP IN BREAST 09/22/2016 Ot 305.1 TOBACCO USE DISORDER 09/22/2016 Ot 786.09 RESPIRATORY ABNORM NEC 09/22/2016 SEYMOUR CHAIREZ AIR TURNING MACHINE FEEDER Ot G47.9 SLEEP DISORDER, UNSPECIFIED 09/22/2016 SEYMOUR CHAIREZ AIR TURNING MACHINE FEEDER Ot I63.9 CEREBRAL INFARCTION, UNSPECIFIED 09/22/2016 SEYMOUR CHAIREZ AIR TURNING MACHINE FEEDER Ot R06.02 SHORTNESS OF BREATH 09/22/2016 SEYMOUR CHAIREZ AIR TURNING MACHINE FEEDER Ot R09.02 HYPOXEMIA 09/22/2016 KLAUDIANDER DAVID GALDAMEZAMEYA S Ot I65.23 OCCLUSION AND STENOSIS OF BILATERAL WALLS 09/22/2016 SEYMOUR CHAIREZ APRN Ot R06.02 SHORTNESS OF BREATH 09/22/2016 SEYMUOR CHAIREZ AIR TURNING MACHINE FEEDER Ot R09.02 HYPOXEMIA 09/22/2016 HARVINDER PEREZ DOLINE S Ot E03.9 HYPOTHYROIDISM, UNSPECIFIED 09/22/2016 KLAUDIANDER DO, AMEYA S Ot I65.23 OCCLUSION AND STENOSIS OF BILATERAL WALLS 09/22/2016 KLAUDIANDHARVINDER TARANGO DOLINE S Ot Z12.31 ENCNTR SCREEN MAMMOGRAM FOR MALIGNANT NE 09/22/2016 HARVINDER PEREZ DOLINE S Ot E03.9 HYPOTHYROIDISM, UNSPECIFIED 09/22/2016 KLAUDIANDER HARVINDER GALDAMEZLINE S Ot E04.1 NONTOXIC SINGLE THYROID NODULE 09/22/2016 HARVINDER PEREZ DOLINE S Ot N63 UNSPECIFIED LUMP IN BREAST 09/25/2016 Ot 305.1 TOBACCO USE DISORDER 09/25/2016 Ot 786.09 RESPIRATORY ABNORM NEC 09/25/2016 SEYMOUR CHAIREZ AIR TURNING MACHINE FEEDER Ot G47.9 SLEEP DISORDER, UNSPECIFIED 09/25/2016 SEYMOUR CHAIREZ AIR TURNING MACHINE FEEDER Ot I63.9 CEREBRAL INFARCTION, UNSPECIFIED 09/25/2016 SEYMOUR CHAIREZ APRN Ot R06.02 SHORTNESS OF BREATH 09/25/2016 SEYMOUR CHAIREZ AIR TURNING MACHINE FEEDER Ot R09.02 HYPOXEMIA 09/25/2016 KLAUDIANDER DAVID GALDAMEZAMEYA S Ot I65.23 OCCLUSION AND STENOSIS OF BILATERAL WALLS 09/25/2016 SEYMOUR CHAIERZ AIR TURNING MACHINE FEEDER Ot R06.02 SHORTNESS OF BREATH 09/25/2016 SEYMOUR CHAIREZ APRN Ot R09.02 HYPOXEMIA 09/25/2016 ORENDER DO, AMEYA S Ot E03.9 HYPOTHYROIDISM, UNSPECIFIED 09/25/2016 ORENDER DO, AMEYA S Ot I65.23 OCCLUSION AND STENOSIS OF BILATERAL WALLS 09/25/2016 ORENDER DO, AMEYA S Ot Z12.31 ENCNTR SCREEN MAMMOGRAM FOR MALIGNANT NE 09/25/2016 ORENDER DO, AMEYA S Ot E03.9 HYPOTHYROIDISM, UNSPECIFIED 09/25/2016 ORENDER DO, AMEYA S Ot E04.1 NONTOXIC SINGLE THYROID NODULE 09/25/2016 ORENDER DO, AMEYA S Ot N63 UNSPECIFIED LUMP IN BREAST 09/25/2016 Ot 305.1 TOBACCO USE DISORDER 09/25/2016 Ot 786.09 RESPIRATORY ABNORM NEC 09/25/2016 SEYMOUR CHAIREZ APRN Ot G47.9 SLEEP DISORDER, UNSPECIFIED 09/25/2016 SEYMOUR CHAIREZ APRN Ot I63.9 CEREBRAL INFARCTION, UNSPECIFIED 09/25/2016 SEYMOUR CHAIREZ APRN Ot R06.02 SHORTNESS OF BREATH 09/25/2016 SEYMOUR CHAIREZ APRN Ot R09.02 HYPOXEMIA 09/25/2016 ORENDER DO, AMEYA S Ot I65.23 OCCLUSION AND STENOSIS OF BILATERAL WALLS 09/25/2016 SEYMOUR CHAIREZ APRN Ot R06.02 SHORTNESS OF BREATH 09/25/2016 SEYMOUR CHAIREZ APRN Ot R09.02 HYPOXEMIA 09/25/2016 ORENDER DO, AMEYA S Ot E03.9 HYPOTHYROIDISM, UNSPECIFIED 09/25/2016 ORENDER DO, AMEYA S Ot I65.23 OCCLUSION AND STENOSIS OF BILATERAL WALLS 09/25/2016 ORENDER DO, AMEYA S Ot Z12.31 ENCNTR SCREEN MAMMOGRAM FOR MALIGNANT NE 09/25/2016 ORENDER DO, AMEYA S Ot E03.9 HYPOTHYROIDISM, UNSPECIFIED 09/25/2016 ORENDER DO, AMEYA S Ot E04.1 NONTOXIC SINGLE THYROID NODULE 09/25/2016 ORENDER DO, AMEYA S Ot N63 UNSPECIFIED LUMP IN BREAST 10/07/2016 AMEYA PEREZ DO S Ot E04.1 NONTOXIC SINGLE THYROID NODULE 10/18/2016 AMEYA PEREZ DO S Ot E04.1 NONTOXIC SINGLE THYROID NODULE 10/19/2016 SEYMOUR CHAIREZ AIR TURNING MACHINE FEEDER Ot R06.02 SHORTNESS OF BREATH 10/19/2016 SEYMOUR CHAIREZ APRN Ot R09.02 HYPOXEMIA 10/23/2016 SHERLY GARCIA MD Ot E03.9 HYPOTHYROIDISM, UNSPECIFIED 10/23/2016 JOSE ALVARADO, SHERLY Billy Ot K63.5 POLYP OF COLON 10/23/2016 SHERLY GARCIA MD Ot Z12.11 ENCOUNTER FOR SCREENING FOR MALIGNANT NE 10/23/2016 SHERLY GARCIA MD Ot Z79.899 OTHER CARE HOME (CURRENT) DRUG THERAPY 10/24/2016 SHERLY GARCIA MD Ot Z01.818 ENCOUNTER FOR OTHER PREPROCEDURAL EXAMIN 10/24/2016 SHERLY GARCIA MD Ot Z12.11 ENCOUNTER FOR SCREENING FOR MALIGNANT NE 10/24/2016 SHERLY GARCIA MD Ot Z79.82 TESTER COMPRESSED GASES (CURRENT) USE OF ASPIRIN 10/25/2016 SHERLY GARCIA MD Ot Z01.818 ENCOUNTER FOR OTHER PREPROCEDURAL EXAMIN 10/25/2016 SHERLY GARCIA MD Ot Z12.11 ENCOUNTER FOR SCREENING FOR MALIGNANT NE 10/25/2016 SHERLY GARCIA MD Ot Z79.82 TESTER COMPRESSED GASES (CURRENT) USE OF ASPIRIN 10/26/2016 AMEYA PEREZ DO S Ot E04.1 NONTOXIC SINGLE THYROID NODULE 11/01/2016 SEYMOUR CHAIREZ AIR TURNING MACHINE FEEDER Ot R06.02 SHORTNESS OF BREATH 11/01/2016 SEYMOUR CHAIREZ APRN Ot R09.02 HYPOXEMIA 11/01/2016 SHERLY GARCIA MD Ot E04.1 NONTOXIC SINGLE THYROID NODULE 11/01/2016 SHERLY GARCIA MD Ot Z01.812 ENCOUNTER FOR PREPROCEDURAL LABORATORY E 11/01/2016 SHERLY GARCIA MD Ot Z11.2 ENCOUNTER FOR SCREENING FOR OTHER BACTER 11/02/2016 SHERLY GARCIA MD Ot E04.1 NONTOXIC SINGLE THYROID NODULE 11/02/2016 SHERLY GARCIA MD Ot Z01.812 ENCOUNTER FOR PREPROCEDURAL LABORATORY E 11/02/2016 SHERLY GARCIA MD Ot Z11.2 ENCOUNTER FOR SCREENING FOR OTHER BACTER 11/09/2016 SHERLY GARCIA MD Ot E03.9 HYPOTHYROIDISM, UNSPECIFIED 11/09/2016 SHERLY GARCIA MD Ot E04.1 NONTOXIC SINGLE THYROID NODULE 11/09/2016 SHERLY GARCIA MD Ot E66.9 OBESITY, UNSPECIFIED 11/09/2016 SHERLY GARCIA MD Ot E78.5 HYPERLIPIDEMIA, UNSPECIFIED 11/09/2016 SHERLY GARCIA MD Ot F32.9 MAJOR DEPRESSIVE DISORDER, SINGLE EPISOD 11/09/2016 SHERLY GARCIA MD Ot J44.9 CHRONIC OBSTRUCTIVE PULMONARY DISEASE, U 11/09/2016 SHERLY GARCIA MD Ot K21.9 GASTRO-ESOPHAGEAL REFLUX DISEASE WITHOUT 11/09/2016 SHERLY GARCIA MD Ot Z68.33 BODY MASS INDEX (BMI) 33.0-33.9, ADULT 11/09/2016 SHERLY GARCIA MD Ot Z79.82 CARE HOME (CURRENT) USE OF ASPIRIN 11/09/2016 SHERLY GARCIA MD Ot Z79.899 OTHER TESTER COMPRESSED GASES (CURRENT) DRUG THERAPY 11/09/2016 SHERLY GARCIA MD Ot Z86.73 PRSNL HX OF TIA (TIA), AND CEREB INFRC W 11/09/2016 SHERLY GARCIA MD Ot Z87.891 PERSONAL HISTORY OF NICOTINE DEPENDENCE 11/09/2016 SHERLY GARCIA MD Ot E03.9 HYPOTHYROIDISM, UNSPECIFIED 11/09/2016 SHERLY GARCIA MD Ot E04.1 NONTOXIC SINGLE THYROID NODULE 11/09/2016 SHERLY GARCIA MD Ot E66.9 OBESITY, UNSPECIFIED 11/09/2016 SHERLY GARCIA MD Ot E78.5 HYPERLIPIDEMIA, UNSPECIFIED 11/09/2016 SHERLY GARCIA MD Ot F32.9 MAJOR DEPRESSIVE DISORDER, SINGLE EPISOD 11/09/2016 SHERLY GARCIA MD Ot J44.9 CHRONIC OBSTRUCTIVE PULMONARY DISEASE, U 11/09/2016 SHERLY GARCIA MD Ot K21.9 GASTRO-ESOPHAGEAL REFLUX DISEASE WITHOUT 11/09/2016 SHERLY GARCIA MD Ot Z68.33 BODY MASS INDEX (BMI) 33.0-33.9, ADULT 11/09/2016 SHERLY GARCIA MD Ot Z79.82 CARE HOME (CURRENT) USE OF ASPIRIN 11/09/2016 SHERLY GARCIA MD Ot Z79.899 OTHER TESTER COMPRESSED GASES (CURRENT) DRUG THERAPY 11/09/2016 SHERLY GARCIA MD Ot Z86.73 PRSNL HX OF TIA (TIA), AND CEREB INFRC W 11/09/2016 SHERLY GARCIA MD Ot Z87.891 PERSONAL HISTORY OF NICOTINE DEPENDENCE 11/10/2016 HARVINDER PEREZ DOLINE S Ot E04.1 NONTOXIC SINGLE THYROID NODULE 11/16/2016 SHERLY GARCIA MD Ot E03.9 HYPOTHYROIDISM, UNSPECIFIED 11/16/2016 SHERLY GARCIA MD Ot E04.1 NONTOXIC SINGLE THYROID NODULE 11/16/2016 SHERLY GARCIA MD Ot E66.9 OBESITY, UNSPECIFIED 11/16/2016 SHERLY GARCIA MD Ot E78.5 HYPERLIPIDEMIA, UNSPECIFIED 11/16/2016 SHERLY GARCIA MD Ot F32.9 MAJOR DEPRESSIVE DISORDER, SINGLE EPISOD 11/16/2016 SHERLY GARCIA MD Ot J44.9 CHRONIC OBSTRUCTIVE PULMONARY DISEASE, U 11/16/2016 SHERLY GARCIA MD Ot K21.9 GASTRO-ESOPHAGEAL REFLUX DISEASE WITHOUT 11/16/2016 SHERLY GARCIA MD Ot Z68.33 BODY MASS INDEX (BMI) 33.0-33.9, ADULT 11/16/2016 SHERLY GARCIA MD Ot Z79.82 TESTER COMPRESSED GASES (CURRENT) USE OF ASPIRIN 11/16/2016 SHERLY GARCIA MD Ot Z79.899 OTHER CARE HOME (CURRENT) DRUG THERAPY 11/16/2016 SHERLY GARCIA MD Ot Z86.73 PRSNL HX OF TIA (TIA), AND CEREB INFRC W 11/16/2016 SHERLY GARCIA MD Ot Z87.891 PERSONAL HISTORY OF NICOTINE DEPENDENCE 12/05/2016 DAVID PEREZ DOQUELINE S Ot I51.7 CARDIOMEGALY 12/05/2016 DAVID PEREZ DOQUELINE S Ot J44.9 CHRONIC OBSTRUCTIVE PULMONARY DISEASE, U 12/06/2016 DAVID PEREZ DOQUELINE S Ot E04.1 NONTOXIC SINGLE THYROID NODULE 12/06/2016 KLAUDIANDER , AMEYA S Ot E04.1 NONTOXIC SINGLE THYROID NODULE 01/12/2017 JOSE ALVARADO, SHERLY Billy Ot E89.0 POSTPROCEDURAL HYPOTHYROIDISM 01/19/2017 KLAUDIANDER DO, AMEYA S Ot R92.2 INCONCLUSIVE MAMMOGRAM 01/22/2017 KLAUDIANDER DO, AMEYA S Ot R92.2 INCONCLUSIVE MAMMOGRAM 01/23/2017 KLAUDIANDER DO, AMEYA S Ot N60.02 SOLITARY CYST OF LEFT BREAST 02/15/2017 KLAUDIANDER DO, AMEYA S Ot N60.02 SOLITARY CYST OF LEFT BREAST 06/07/2017 JOSE ALVARADO, SHERLY Billy Ot E04.1 NONTOXIC SINGLE THYROID NODULE 06/07/2017 JOSE ALVARADO, SHERLY Billy Ot R53.83 OTHER FATIGUE 06/28/2017 JOSE ALVARADO, SHERLY Billy Ot E04.1 NONTOXIC SINGLE THYROID NODULE 06/28/2017 JOSE ALVARADO, SHERLY Billy Ot R53.83 OTHER FATIGUE 01/15/2018 SEYMOUR CHAIREZ AIR TURNING MACHINE FEEDER Ot G47.9 SLEEP DISORDER, UNSPECIFIED 01/15/2018 SEYMOUR CHAIREZ AIR TURNING MACHINE FEEDER Ot I63.9 CEREBRAL INFARCTION, UNSPECIFIED 01/15/2018 SEYMOUR CHAIREZ AIR TURNING MACHINE FEEDER Ot R06.02 SHORTNESS OF BREATH 01/15/2018 SEYMOUR CHAIREZ AIR TURNING MACHINE FEEDER Ot R09.02 HYPOXEMIA 01/15/2018 KLAUDIANDER DO, AMEYA S Ot I65.23 OCCLUSION AND STENOSIS OF BILATERAL WALLS 01/15/2018 SEYMOUR CHAIREZ AIR TURNING MACHINE FEEDER Ot R06.02 SHORTNESS OF BREATH 01/15/2018 SEYMOUR CHAIREZ AIR TURNING MACHINE FEEDER Ot R09.02 HYPOXEMIA 01/15/2018 KLAUDIANDER DO, AMEYA S Ot E03.9 HYPOTHYROIDISM, UNSPECIFIED 01/15/2018 ORENDER DO, AMEYA S Ot I65.23 OCCLUSION AND STENOSIS OF BILATERAL WALLS 01/15/2018 KLAUDIANDER DO, AMEYA S Ot Z12.31 ENCNTR SCREEN MAMMOGRAM FOR MALIGNANT NE 01/15/2018 KLAUDIANDER DO, AMEYA S Ot E03.9 HYPOTHYROIDISM, UNSPECIFIED 01/15/2018 KLAUDIANDER DO, AMEYA S Ot E04.1 NONTOXIC SINGLE THYROID NODULE 01/15/2018 CHRIS GALDAMEZ AMEYA S Ot N63 UNSPECIFIED LUMP IN BREAST 01/15/2018 CHRIS GALDAMEZ AMEYA S Ot E04.1 NONTOXIC SINGLE THYROID NODULE 01/15/2018 CHRIS GALDAMEZ AMEYA S Ot E04.1 NONTOXIC SINGLE THYROID NODULE 01/15/2018 JOSE ALVARADO, SHERLY Billy Ot Z01.818 ENCOUNTER FOR OTHER PREPROCEDURAL EXAMIN 01/15/2018 SHERLY GARCIA MD Ot Z12.11 ENCOUNTER FOR SCREENING FOR MALIGNANT NE 01/15/2018 JOSE ALVARADO, SHERLY Billy Ot Z79.82 CARE HOME (CURRENT) USE OF ASPIRIN 01/15/2018 CHRIS GALDAMEZ AMEYA S Ot I51.7 CARDIOMEGALY 01/15/2018 KANCHANSUKHDEEP GALDAMEZ AMEYA S Ot J44.9 CHRONIC OBSTRUCTIVE PULMONARY DISEASE, U 01/15/2018 SHERLY GARCIA MD Ot E89.0 POSTPROCEDURAL HYPOTHYROIDISM 01/15/2018 KANCHANSUKHDEEP GALDAMEZ AMEYA S Ot N60.02 SOLITARY CYST OF LEFT BREAST 01/15/2018 JOSE ALVARADO, SHERLY Billy Ot E04.1 NONTOXIC SINGLE THYROID NODULE 01/15/2018 JOSE ALVARADO, SHERLY Billy Ot R53.83 OTHER FATIGUE 01/15/2018 HCRIS GALDAMEZ AMEYA S Ot I65.22 OCCLUSION AND STENOSIS OF LEFT CAROTID A 01/17/2018 KLAUDIAROSA MARIA GALDAMEZ AMEYA S Ot I65.23 OCCLUSION AND STENOSIS OF BILATERAL WALLS 02/06/2018 KANCHANSUKHDEEP GALDAMEZ AMEYA S Ot I65.23 OCCLUSION AND STENOSIS OF BILATERAL WALLS Procedures There is no data. Results Test Result Range Complete blood count (CBC) with automated white blood cell (WBC) differential - 11/01/16 09:40 Blood leukocytes automated count (number/volume) 8.6 10*3/uL 4.3-11.0 Blood erythrocytes automated count (number/volume) 4.30 10*6/uL 4.35-5.85 Venous blood hemoglobin measurement (mass/volume) 13.3 g/dL 11.5-16.0 Blood hematocrit (volume fraction) 41 % 35-52 Automated erythrocyte mean corpuscular volume 96 [foz_us] 80-99 Automated erythrocyte mean corpuscular hemoglobin (mass per erythrocyte) 31 pg 25-34 Automated erythrocyte mean corpuscular hemoglobin concentration measurement ( mass/volume) 32 g/dL 32-36 Automated erythrocyte distribution width ratio 13.1 % 10.0-14.5 Automated blood platelet count (count/volume) 256 10*3/uL 130-400 Automated blood platelet mean volume measurement 9.9 [foz_us] 7.4-10.4 Automated blood neutrophils/100 leukocytes 70 % 42-75 Automated blood lymphocytes/100 leukocytes 19 % 12-44 Blood monocytes/100 leukocytes 7 % 0-12 Automated blood eosinophils/100 leukocytes 4 % 0-10 Automated blood basophils/100 leukocytes 0 % 0-10 Blood neutrophils automated count (number/volume) 6.0 10*3 1.8-7.8 Blood lymphocytes automated count (number/volume) 1.7 10*3 1.0-4.0 Blood monocytes automated count (number/volume) 0.6 10*3 0.0-1.0 Automated eosinophil count 0.3 10*3/uL 0.0-0.3 Automated blood basophil count (count/volume) 0.0 10*3/uL 0.0-0.1 Whole blood basic metabolic panel - 11/01/16 09:40 Serum or plasma sodium measurement (moles/volume) 141 mmol/L 135-145 Serum or plasma potassium measurement (moles/volume) 4.4 mmol/L 3.6-5.0 Serum or plasma chloride measurement (moles/volume) 104 mmol/L 98-107 Carbon dioxide 28 mmol/L 21-32 Serum or plasma anion gap determination (moles/volume) 9 mmol/L 5-14 Serum or plasma urea nitrogen measurement (mass/volume) 13 mg/dL 7-18 Serum or plasma creatinine measurement (mass/volume) 0.88 mg/dL 0.60-1.30 Serum or plasma urea nitrogen/creatinine mass ratio 15 NRG Serum or plasma creatinine measurement with calculation of estimated glomerular filtration rate > NRG Serum or plasma glucose measurement (mass/volume) 181 mg/dL 70-105 Serum or plasma calcium measurement (mass/volume) 9.4 mg/dL 8.5-10.1 Methicillin resistant Staphylococcus aureus (MRSA) screening culture - 09:40 Methicillin resistant Staphylococcus aureus (MRSA) screening culture NEG NRG Whole blood basic metabolic panel - 11/09/16 05:09 Serum or plasma sodium measurement (moles/volume) 141 mmol/L 135-145 Serum or plasma potassium measurement (moles/volume) 4.2 mmol/L 3.6-5.0 Serum or plasma chloride measurement (moles/volume) 105 mmol/L 98-107 Carbon dioxide 27 mmol/L 21-32 Serum or plasma anion gap determination (moles/volume) 9 mmol/L 5-14 Serum or plasma urea nitrogen measurement (mass/volume) 16 mg/dL 7-18 Serum or plasma creatinine measurement (mass/volume) 0.83 mg/dL 0.60-1.30 Serum or plasma urea nitrogen/creatinine mass ratio 19 NRG Serum or plasma creatinine measurement with calculation of estimated glomerular filtration rate > NRG Serum or plasma glucose measurement (mass/volume) 133 mg/dL 70-105 Serum or plasma calcium measurement (mass/volume) 8.4 mg/dL 8.5-10.1 THYROID STIMULATING HORMONE - 12/21/16 11:50 THYROID STIMULATING HORMONE 0.94 u[iU]/mL 0.35-4.94 Thyroxine (T4) measurement - 12/21/16 11:50 T4 (thyroxine) 14.5 % 5.5-12.0 Encounters ACCT No. Visit Date/Time Discharge Status Pt. Type Provider Facility Loc./Unit Complaint [id number] 01/08/2018 13:42:00 01/08/2018 23:59:59 CLS Outpatient AMEAY PEREZ DO [facility] RAD CAROTID ARTERY STENOSIS [id number] 06/06/2017 13:33:00 06/06/2017 23:59:59 CLS Outpatient SHERLY GARCIA MD [facility] LAB THYROID NODULE/ FATIQUE [id number] 01/22/2017 08:05:00 01/22/2017 23:59:59 CLS Outpatient AMEYA PEREZ DO [facility] RAD F/U L BREAST CYST/ AB MAMMO [id number] 12/21/2016 11:28:00 12/21/2016 23:59:59 CLS Outpatient SHERLY GARCIA MD [facility] LAB TOTAL THYROIDECTOMY [id number] 11/14/2016 11:25:00 11/14/2016 23:59:59 CLS Outpatient ORENDER DO AMEYA S [facility] RAD COUGH,DYSPNEA [id number] 11/08/2016 07:30:00 11/09/2016 10:48:00 DIS Outpatient SHERLY GARCIA MD [facility] SDC THYROID NODULES [id number] 11/01/2016 09:08:00 11/01/2016 11:30:00 DIS Outpatient SHERLY GARCIA MD [facility] PREOP THYROID NODULES [id number] 10/23/2016 11:13:00 10/23/2016 14:15:00 DIS Outpatient SHERLY GARCIA MD [facility] ENDO SCREENING [id number] 10/19/2016 07:00:00 10/19/2016 23:59:59 CLS Outpatient SHERLY GARCIA MD [facility] PREOP COLONOSCOPY [id number] 10/05/2016 13:36:00 10/05/2016 23:59:59 CLS Outpatient KLAUDIANDSUKHDEEP GALDAMEZ AMEYA S [facility] RAD BILATERAL THYROID NODULE [id number] 09/25/2016 12:25:00 09/25/2016 23:59:59 CLS Outpatient KLAUDIANDSUKHDEEP GALDAMEZ AMEYA S [facility] RAD THYROID NODULE E04.1 [id number] 05/05/2016 07:52:00 05/05/2016 23:59:59 CLS Outpatient KLAUDIANDSUKHDEEP GALDAMEZ AMEYA S [facility] RAD LT BREAST FOCAL ASYMMETRY [id number] 04/25/2016 10:27:00 04/25/2016 23:59:59 CLS Outpatient KLAUDIANDER DO AMEYA S [facility] CARD HYPOTHYROIDISM, NODULE [id number] 04/14/2016 11:27:00 04/14/2016 23:59:59 CLS Outpatient KLAUDIANDSUKHDEEP GALDAMEZ AMEYA S [facility] RAD SCREENING,CAROTID ARTERY STENOSIS,HYPOTHYROIDISM [id number] 01/17/2016 08:15:00 01/17/2016 23:59:59 CLS Preadmit SEYMOUR CHAIREZ APRN [facility] PULM SOB,HYPOXEMIA REQUIRING OXYGEN [id number] 01/13/2016 09:00:00 01/16/2016 00:01:00 DIS Outpatient SEYMOUR CHAIREZ APRN [facility] PULM SOB,HYPOXEMIA REQUIRING OXYGEN [id number] 11/02/2015 17:38:00 11/02/2015 23:59:59 CLS Outpatient AMEYA PEREZ DO [facility] RAD SOB,HYPOXEMIA [id number] 10/15/2015 20:02:00 10/16/2015 07:05:00 DIS Outpatient SEYMOUR CHAIREZ APRN [facility] SLEEP EXCESSIVE DAYTIME SLEEPINESS,HYPERSOMNIA [id number] 09/08/2015 14:12:00 09/08/2015 23:59:59 CLS Outpatient SEYMOUR CHAIREZ APRN [facility] RT SOB,HYPOXEMIA REQUIRING OXYGEN [id number] 03/15/2018 16:18:00 ACT Emergency ROXANA BERNARDO [facility] ER SOB [id number] 07/31/2015 14:58:00 ACT Inpatient AMEYA PEREZ DO [facility] 4TH COPD EXACERBATION HYPOXIA AMS [id number] 10/24/2011 16:50:00 Document Registration
[2018-03-15] MEDS ORDERED: NS IV 1000 ML 1,000 ML IV ONE ×3 (16:27→21:15)
[2018-03-15] MEDS ORDERED: RT-ALBUTEROL/IPRATROPIUM 3 ML (DUONEB) VIAL INH ONE (16:30)
[2018-03-15] MEDS ORDERED: methylPREDNISolone 125 MG (Solu-MEDROL) VIAL IM ONE (16:30)
[2018-03-15] MEDS ORDERED: RT-ALBUTEROL SULF 2.5 MG/3 ML PRE-MIX VIAL INH STA (16:39)
[2018-03-15 16:45] LABS: BASOPHILS % (AUTO) 0 % (0-10); EOSINOPHILS % (AUTO) 0 % (0-10); HEMATOCRIT 43 % (35-52); HEMOGLOBIN 14.1 G/DL (11.5-16.0); LYMPHOCYTES # (AUTO) 0.5 X 10^3 (1.0-4.0); LYMPHOCYTES % (AUTO) 3 % (12-44); MEAN CORPUSCULAR HEMOGLOBIN 32 PG (25-34); MEAN CORPUSCULAR HGB CONC 33 G/DL (32-36); MEAN CORPUSCULAR VOLUME 97 FL (80-99); MONOCYTES # (AUTO) 0.3 X 10^3 (0.0-1.0); MONOCYTES % (AUTO) 2 % (0-12); NEUTROPHILS # (AUTO) 15.1 X 10^3 (1.8-7.8); NEUTROPHILS % (AUTO) 95 % (42-75); PLATELET COUNT 331 10^3/uL (130-400); RED BLOOD COUNT 4.45 10^6/uL (4.35-5.85); RED CELL DISTRIBUTION WIDTH 12.7 % (10.0-14.5)
[2018-03-15] MEDS ORDERED: methylPREDNISolone 125 MG (Solu-MEDROL) VIAL IVP ONE (16:45)
[2018-03-15 16:54] LABS: ABG BASE EXCESS -0.7 MMOL/L (-2.5-2.5); ABG OXYGEN SATURATION 92 % (94-100); ABG PCO2 38 MMHG (35-45); ABG PO2 62 MMHG (79-93); ABG TCO2 24.6 MMOL/L (21.0-31.0)
[2018-03-15 16:58] LABS: ALLENS TEST POSITIVE; INSPIRED O2 12 L; PATIENT TEMP 98.4; VENTILATOR NO
[2018-03-15 17:00] LABS: BAND NEUTROPHILS 38 %; BASOPHILS % (MANUAL) 0 %; EOSINOPHILS % (MANUAL) 0 %; LYMPHOCYTES % (MANUAL) 5 %; METAMYELOCYTES % 1 %; MONOCYTES % (MANUAL) 1 %; NEUTROPHILS % (MANUAL) 55 %; RBC MORPH NORMAL; TOXIC GRANULATION/VACUOLAZATIO 1+
[2018-03-15 17:02] LABS: ALANINE AMINOTRANSFERASE 13 U/L (0-55); ALKALINE PHOSPHATASE 85 U/L (40-136); BILIRUBIN,TOTAL 1.9 MG/DL (0.1-1.0); BUN/CREATININE RATIO 11; CARBON DIOXIDE 25 MMOL/L (21-32); CHLORIDE 98 MMOL/L (98-107); CREATININE SERUM 1.31 MG/DL (0.60-1.30); GFR ESTIMATED 41; GLUCOSE 268 MG/DL (70-105); MAGNESIUM 1.4 MG/DL (1.8-2.4); POTASSIUM 3.6 MMOL/L (3.6-5.0); SODIUM 140 MMOL/L (135-145); TOTAL PROTEIN 7.5 GM/DL (6.4-8.2)
--- NOTE | 2018-03-15 17:18 | Diagnostic Imaging Report ---
INDICATION: Shortness of air. COMPARISON STUDY: Chest from 11/14/2016. FINDINGS: Portable view of the chest demonstrates the heart size to be normal. Vascularity appears normal. Infiltrates are present throughout the lungs, greatest centering in the lower lobes. Mild infiltrates are seen in the left perihilar region. IMPRESSION: There are bilateral pulmonary infiltrates, right greater than left. No pleural effusions are seen. Dictated by: Dictated on workstation # [id number]
[2018-03-15] MEDS ORDERED: NS IV 1000 ML 1,000 ML IV SCH (17:22)
--- NOTE | 2018-03-15 17:22 | ED Cough/URI ---
General Chief Complaint: Respiratory Problems Stated Complaint: SOB Nursing Triage Note: PT PRESENTS TO ED ACCOMPANIED BY ADULT DAUGHTER. PT WHEELED TO ROOM NINE AND ASSISTED INTO COT. PT REPROTS SOA/COUGH/CHILLS/MALAISE X 3 DAYS. REPORTS WORSE TODAY. PT HOME 02 SAT PROBE READ 70% ON 2 L NC PULMONARY FELLOW. Source: patient, family (DAUGHTER) Exam Limitations: no limitations History of Present Illness Date Seen by Provider: Mar 15, 2018 Time Seen by Provider: 16:25 Initial Comments 67 yo female patient presents to the ED with c/o SOA, cough, chills, and malaise x3 days. Patient was noted to have an SaO2 of approximately 70% on 2 L NC PULMONARY FELLOW. Patient does have a h/o COPD and wears O2 as needed. Timing/Duration: getting worse, other (3 day onset) Severity/Quality: productive cough (clear productive cough) Prior Episodes/Possible Cause: frequent episodes Modifying Factors: Worse With Activity, Worse With Coughing Allergies and Home Medications Allergies Coded Allergies: No Known Drug Allergies (Unverified , 03/15/18) Home Medications Aspirin 81 Mg Tablet.dr, 81 MG PO DAILY, (Reported) Atorvastatin Calcium 40 Mg Tablet, 40 MG PO HS, (Reported) Cetirizine HCl 10 Mg Tablet, 10 MG PO DAILY, (Reported) Cholecalciferol (Vitamin D3) 1,000 Unit Capsule, 1,000 UNIT PO DAILY, (Reported) Levothyroxine Sodium 112 Mcg Tablet, 112 MCG PO DAILY, (Reported) Mometasone/Formoterol 13 Gm Hfa.aer.ad, 2 PUFF IH BID, (Reported) Montelukast Sodium 10 Mg Tablet, 10 MG PO HS, (Reported) Ranitidine HCl 150 Mg Tablet, 150 MG PO DAILY, (Reported) Ropinirole HCl 0.5 Mg Tablet, 0.5 MG PO HS, (Reported) Sertraline HCl 50 Mg Tablet, 50 MG PO HS, (Reported) Patient Home Medication List Home Medication List Reviewed: Yes Review of Systems Review of Systems Constitutional: chills, fever, malaise EENTM: nose congestion; No ear pain, No eye pain, No throat pain Respiratory: see HPI, cough; No hemoptysis, No orthopnea; phlegm, short of breath, wheezing Cardiovascular: No chest pain, No edema, No palpitations, No syncope Gastrointestinal: No abdominal pain, No constipation, No diarrhea, No hematemesis; loss of appetite; No melena, No nausea, No vomiting Genitourinary: no symptoms reported Musculoskeletal: other (generalized bodyaches) Skin: no symptoms reported Psychiatric/Neurological: No Symptoms Reported All Other Systems Reviewed Negative Unless Noted: Yes (Negative excepted noted.) Past Zgeceov-Xwpgbs-Fwwdfi Hx Past Med/Social Hx: Reviewed Nursing Past Med/Soc Hx Patient Social History Alcohol Use: Denies Use Recreational Drug Use: No Smoking Status: Former Smoker Former Smoker, Quit: Oct 20, 2015 Recent Foreign Travel: No Contact w/Someone Who Travel: No Recent Infectious Disease Expo: No Recent Hopitalizations: No Physical Abuse: No Sexual Abuse: No Mistreated: No Fear: No Immunizations Up To Date Tetanus Booster (TDap): Unknown Date of Pneumonia Vaccine: Feb 14, 2016 Date of Influenza Vaccine: Feb 14, 2016 Seasonal Allergies Seasonal Allergies: No Past Medical History Surgeries: Yes Adenoidectomy, Tonsillectomy Respiratory: Yes (02 1L AT NIGHT AND NEEDED) COPD Cardiac: Yes High Cholesterol Neurological: Yes (essential tremor LEFT HAND) Stroke Reproductive Disorders: No Sexually Transmitted Disease: No HIV/AIDS: No Genitourinary: No Gastrointestinal: Yes Gastroesophageal Reflux, Polyps Musculoskeletal: No Endocrine: Yes (THYROID NODULES) Loss of Vision: Bilateral Hearing Impairment: Denies Cancer: No Psychosocial: Yes Depression Integumentary: No Blood Disorders: No Adverse Reaction/Blood Tranf: No (N/A) Family Medical History Reviewed Nursing Family Hx Congenital heart disease 19 FATHER No Pertinent Family Hx, CVA, Hypertension Physical Exam Vital Signs - First Documented 03/15/18 03/15/18 16:27 16:57 Temp 98.4 Pulse 116 Resp 18 B/P (MAP) 114/48 (70) Pulse Ox 91 O2 Delivery OxyMask O2 Flow Rate 12.00 Capillary Refill : Less Than 3 Seconds Height: 5'3.00" Weight: 185lbs. 0.0oz. 83.844380yf; 33.0 BMI Method:Stated General Appearance: WD/WN, no apparent distress HEENT: PERRL/EOMI, TMs normal, pharyngeal erythema; No tonsillar exudate Neck: non-tender, supple, normal inspection Respiratory: respiratory distress, decreased breath sounds, rales Cardiovascular: normal peripheral pulses, no murmur, tachycardia Gastrointestinal: normal bowel sounds, non tender, soft, no organomegaly Extremities: no calf tenderness, normal capillary refill, other (trace pedal edema bilaterally) Neurologic/Psychiatric: alert, normal mood/affect, oriented x 3 Skin: normal color, warm/dry Focused Exam Lactate Level Time of Focused Exam: 18:50 Respiratory: No Accessory Muscle Use, No Respiratory Distress, Expiration, Rhonci, Other (BS overall improved bilaterally. improved aeration bilaterally.) Cardiovascular: No Murmur, Normal Peripheral Pulses, Tachycardia Capillary Refill: Less Than 3 Seconds Peripheral Pulses: 2+ Dorsalis Pedis (R), 2+ Left Dors-Pedis (L), 2+ Radial Pulses (R), 2+ Radial Pulses (L) Skin: normal color, warm/dry; No cyanosis, No diaphoresis, No ecchymosis, No jaundice, No mottled, No rash Lactic Acid Level Laboratory Tests Test 03/15/18 16:32 Lactic Acid Level 6.48 MMOL/L (0.50-2.00) *H Progress/Results/Core Measures Suspected Sepsis Recent Fever Within 48 Hours: No Infection Criteria Present: Suspected New Infection New/Unexplained Altered Menta: Yes Sepsis Screen: No Definite Risk SIRS Temperature:98.4 Pulse: 116 Respiratory Rate: 18 Blood Pressure 114 /48 Mean: 70 Laboratory Tests 03/15/18 16:32: INR Comment 1.4, Total Bilirubin 1.9H Results/Orders Lab Results Laboratory Tests Test 03/15/18 16:32 03/15/18 16:48 Range/Units White Blood Count 16.0 H 4.3-11.0 10^3/uL Red Blood Count 4.45 4.35-5.85 10^6/uL Hemoglobin 14.1 11.5-16.0 G/DL Hematocrit 43 35-52 % Mean Corpuscular Volume 97 80-99 FL Mean Corpuscular Hemoglobin 32 25-34 PG Mean Corpuscular Hemoglobin Concent 33 32-36 G/DL Red Cell Distribution Width 12.7 10.0-14.5 % Platelet Count 331 130-400 10^3/uL Mean Platelet Volume 10.0 7.4-10.4 FL Neutrophils (%) (Auto) 95 H 42-75 % Lymphocytes (%) (Auto) 3 L 12-44 % Monocytes (%) (Auto) 2 0-12 % Eosinophils (%) (Auto) 0 0-10 % Basophils (%) (Auto) 0 0-10 % Neutrophils # (Auto) 15.1 H 1.8-7.8 X 10^3 Lymphocytes # (Auto) 0.5 L 1.0-4.0 X 10^3 Monocytes # (Auto) 0.3 0.0-1.0 X 10^3 Eosinophils # (Auto) 0.0 0.0-0.3 10^3/uL Basophils # (Auto) 0.0 0.0-0.1 10^3/uL Neutrophils % (Manual) 55 % Lymphocytes % (Manual) 5 % Monocytes % (Manual) 1 % Eosinophils % (Manual) 0 % Basophils % (Manual) 0 % Metamyelocytes % 1 % Band Neutrophils 38 % Toxic Granulation 1+ Blood Morphology Comment NORMAL Prothrombin Time 17.6 H 12.2-14.7 SEC INR Comment 1.4 0.8-1.4 Activated Partial Thromboplast Time 29 24-35 SEC Sodium Level 140 135-145 MMOL/L Potassium Level 3.6 3.6-5.0 MMOL/L Chloride Level 98 98-107 MMOL/L Carbon Dioxide Level 25 21-32 MMOL/L Anion Gap 17 H 5-14 MMOL/L Blood Urea Nitrogen 15 7-18 MG/DL Creatinine 1.31 H 0.60-1.30 MG/DL Estimat Glomerular Filtration Rate 41 BUN/Creatinine Ratio 11 Glucose Level 268 H 70-105 MG/DL Lactic Acid Level 6.48 *H 0.50-2.00 MMOL/L Calcium Level 9.0 8.5-10.1 MG/DL Corrected Calcium 9.0 8.5-10.1 MG/DL Magnesium Level 1.4 L 1.8-2.4 MG/DL Total Bilirubin 1.9 H 0.1-1.0 MG/DL Aspartate Amino Transf (AST/SGOT) 16 5-34 U/L Alanine Aminotransferase (ALT/SGPT) 13 0-55 U/L Alkaline Phosphatase 85 40-136 U/L Troponin I < 0.30 <0.30 NG/ML Total Protein 7.5 6.4-8.2 GM/DL Albumin 4.0 3.2-4.5 GM/DL Blood Gas Puncture Site R RADIAL Blood Gas Patient Temperature 98.4 Arterial Blood pH 7.40 7.37-7.43 Arterial Blood Partial Pressure CO2 38 35-45 MMHG Arterial Blood Partial Pressure O2 62 L 79-93 MMHG Arterial Blood HCO3 23 23-27 MMOL/L Arterial Blood Total CO2 24.6 21.0-31.0 MMOL/L Arterial Blood Oxygen Saturation 92 L 94-100 % Arterial Blood Base Excess -0.7 -2.5-2.5 MMOL/L Emil Test POSITIVE Blood Gas Ventilator Setting NO Blood Gas Inspired Oxygen 12 L Micro Results Microbiology 03/15/18 Blood Culture - Preliminary, Resulted No growth 03/15/18 Influenza Types A,B Antigen (YU) - Final, Complete 03/15/18 MRSA Screen - Final, Complete MRSA not isolated My Orders Orders - ROXANA BECERRA Saline Lock/Iv-Start (03/15/18 16:20) Ekg Tracing (03/15/18 16:20) O2 (03/15/18 16:20) Monitor-Rhythm Ecg Trace Only (03/15/18 16:20) Cbc With Automated Diff (03/15/18 16:20) Comprehensive Metabolic Panel (03/15/18 16:20) Magnesium (03/15/18 16:20) Troponin I (03/15/18 16:20) Chest 1 View, Ap/Pa Only (03/15/18 16:20) Albuterol/Ipra Inhalation Soln (Duoneb I (03/15/18 16:30) Svn Small Volume Nebulizer (03/15/18 16:20) Influenza A And B Antigens (03/15/18 16:27) Ns Iv 1000 Ml (Sodium Chloride 0.9%) (03/15/18 16:27) Methylprednisolone Sod Succ (Solu-Medrol (03/15/18 16:30) Arterial Blood Gas (03/15/18 16:39) Albuterol Pre-Mix Nebs (Rt) (Proventil (03/15/18 16:39) Svn Small Volume Nebulizer (03/15/18 16:39) Methylprednisolone Sod Succ (Solu-Medrol (03/15/18 16:45) Manual Differential (03/15/18 16:32) Arterial Blood Draw (03/15/18 ) Blood Culture (03/15/18 17:22) Sputum Culture (03/15/18 17:22) Protime With Inr (03/15/18 17:22) Partial Thromboplastin Time (03/15/18 17:22) Lactic Acid Analyzer (03/15/18 17:22) Ns Iv 1000 Ml (Sodium Chloride 0.9%) (03/15/18 17:22) Cefepime Injection (Maxipime Injection) (03/15/18 17:30) Medications Given in ED Vital Signs/I&O 03/15/18 03/15/18 03/15/18 16:27 16:57 17:00 Temp 98.4 Pulse 116 Resp 18 B/P (MAP) 114/48 (70) Pulse Ox 91 92 95 O2 Delivery OxyMask OxyMask High Flow N/C O2 Flow Rate 12.00 12.00 11.00 Capillary Refill : Less Than 3 Seconds Blood Pressure Mean: 70 ECG Initial ECG Impression Date: Mar 15, 2018 Initial ECG Impression Time: 16:51 Initial ECG Rate: 114 Initial ECG Rhythm: S.Tach Comment sinus tachycardia. no STEMI or arrhythmia. ECG reviewed with Dr. Dodson. Diagnostic Imaging Diagonstic Imaging: Xray Plain Films/CT/US/NM/MRI: chest Comments CHEST 1 VIEW, AP/PA ONLY INDICATION: Shortness of air. COMPARISON STUDY: Chest from 11/14/2016. FINDINGS: Portable view of the chest demonstrates the heart size to be normal. Vascularity appears normal. Infiltrates are present throughout the lungs, greatest centering in the lower lobes. Mild infiltrates are seen in the left perihilar region. IMPRESSION: There are bilateral pulmonary infiltrates, right greater than left. No pleural effusions are seen. Dictated by: Dictated on workstation # [id number] Reviewed: Reviewed by Me (radiology report reviewed by me) Departure Communication (Admissions) Time/Spoke to Admitting Phy: 17:30 dr. burns graciously accepts pt to her internal medicine service for dr. uribe. Time/Spoke to Consulting Phy: 17:40 dr. lopez notified of consult. patient seen and evaluated. initial labs, an ABG, and cxr obtained. pt was given a duoneb tx with little improvement. she was subsequently given an hour long albuterol treatment with improvement in breath sounds and bilateral aeration. pt does report feeling much better with the nebulizer treatment. a lactic acid and blood cultures were drawn for an elevated WBC count of 16 and a HR of 114. Pt was noted to have an elevated lactic acid and elevated creatinine. all laboratory findings, diagnostic study findings, and plan for admission discussed with the patient and family. all verbalize understanding and agree with the treatment plan. Dr. Saini notified of plan for admit. He agrees with the plan of care. 1850 I attest to the focused exam as listed above. Pseudomonal Risk: COPD Patient allergy/sensitivity/re: None Impression Primary Impression: Sepsis Qualified Codes: A41.9 - Sepsis, unspecified organism Additional Impressions: Bilateral pneumonia Qualified Codes: J18.1 - Lobar pneumonia, unspecified organism COPD (chronic obstructive pulmonary disease) Qualified Codes: J44.1 - Chronic obstructive pulmonary disease with (acute) exacerbation Diabetes mellitus type 2, uncontrolled Qualified Codes: E11.65 - Type 2 diabetes mellitus with hyperglycemia Acute renal failure Qualified Codes: N17.9 - Acute kidney failure, unspecified Disposition: 09 ADMITTED INPATIENT Condition: Stable Admissions Decision to Admit Reason: Admit from ER (General) Decision to Admit/Date: Mar 15, 2018 Time/Decision to Admit Time: 17:20 Departure-Patient Inst. Referrals: AMEYA URIBE DO (PCP/Family) Primary Care Physician ROXANA BECERRA Mar 15, 2018 17:22
[2018-03-15] MEDS ORDERED: NS IV 500 ML 500 ML IV ONE (17:29)
[2018-03-15] MEDS ORDERED: PIPERACILLIN SODIUM/TAZOBACTAM 4.5 GM in NS (IVPB) 100 ML IV ONE (17:30)
[2018-03-15] MEDS ORDERED: CEFEPIME INJECTION 1,000 MG in NS (IVPB) 50 ML IV ONE (17:30)
[2018-03-15 17:38] LABS: INR 1.4 (0.8-1.4); PROTHROMBIN TIME PATIENT 17.6 SEC (12.2-14.7)
--- OUTSIDE RECORDS SUMMARY | 2018-03-15 18:21 | XMS REPORT | Clinical Summary ---
Author Author [facility] Organization [facility] Address Unknown Phone Unavailable Care Team Providers Care Sales Operations Lead Name Role Phone Nandini Dickey RN Unavailable Unavailable Holli Salvador MD PCP Renetta Suárez DO Unavailable Unavailable Source Comments Some departments are not documenting in the electronic medical record. If you do not see the information that you expected, contact Release of Information in the Health Information Management department at [phone] for further assistance in locating additional records.[facility] Allergies No Known Allergies Current Medications Prescription [...]
--- OUTSIDE RECORDS SUMMARY | 2018-03-15 18:22 | XMS REPORT | Continuity of Care Document ---
Author Author [facility] Organization [facility] Address Unknown Phone Unavailable Allergies Active Description Code Type Severity Reaction Onset Reported/Identified Relationship to Patient Clinical Status Yes No Known Drug Allergies [id number] Drug Allergy Unknown N/A 11/01/2016 Medications There is no data. Problems Date Dx Coded Attending Type Code Diagnosis Diagnosed By 08/03/2015 Ot 305.1 08/03/2015 Ot 786.09 08/03/2015 AMEYA PEREZ DO S Ot D72.829 08/03/2015 DAVID PEREZ DOQUELINE S Ot F17.210 08/03/2015 LKAUDIANDDAVID TARANGO DOQUELINE S Ot F43.21 08/03/2015 KLAUDIANDSUKHDEEP [...] 786.09 RESPIRATORY ABNORM NEC 09/09/2015 SEYMOUR CHAIREZ BOAT LOADER Ot G47.9 SLEEP DISORDER, UNSPECIFIED 09/09/2015 SEYMOUR CHAIREZ BOAT LOADER Ot I63.9 CEREBRAL INFARCTION, UNSPECIFIED 09/09/2015 SEYMOUR CHAIREZ BOAT LOADER Ot R06.02 SHORTNESS OF BREATH 09/09/2015 SEYMOUR CHAIREZ BOAT LOADER Ot R09.02 HYPOXEMIA 09/09/2015 SEYMOUR CHAIREZ BOAT LOADER Ot G47.9 SLEEP DISORDER, UNSPECIFIED 09/09/2015 SEYMOUR CHAIREZ BOAT LOADER Ot I63.9 CEREBRAL INFARCTION, UNSPECIFIED 09/09/2015 SEYMOUR CHAIREZ BOAT LOADER Ot R06.02 SHORTNESS OF BREATH 09/09/2015 SEYMOUR CHAIREZ BOAT LOADER Ot R09.02 HYPOXEMIA 10/01/2015 SEYMOUR CHAIREZ BOAT LOADER Ot G47.9 SLEEP DISORDER, UNSPECIFIED 10/01/2015 SEYMOUR CHAIREZ BOAT LOADER Ot I63.9 CEREBRAL INFARCTION, UNSPECIFIED 10/01/2015 MIHAELA, SEYMOUR E BOAT LOADER Ot R06.02 SHORTNESS OF BREATH 10/01/2015 GABI CHAIREZINE Maxwell BOAT LOADER Ot R09.02 HYPOXEMIA 10/02/2015 MIHAELA, SEYMOUR Maxwell BOAT LOADER Ot G47.9 SLEEP DISORDER, UNSPECIFIED 10/02/2015 GABI CHAIREZINE Maxwell BOAT LOADER Ot I63.9 CEREBRAL INFARCTION, UNSPECIFIED 10/02/2015 MIHAELA SEYMOUR Maxwell BOAT LOADER Ot R06.02 SHORTNESS OF BREATH 10/02/2015 MIHAELA SEYMOUR E BOAT LOADER Ot R09.02 HYPOXEMIA 10/15/2015 GABI CHAIREZINE Maxwell BOAT LOADER Ot G47.9 SLEEP DISORDER, UNSPECIFIED 10/15/2015 MIHAELA SEYMOUR Maxwell BOAT LOADER Ot I63.9 CEREBRAL INFARCTION, UNSPECIFIED 10/15/2015 MIHAELA SEYMOUR Arreola BOAT LOADER Ot R06.02 SHORTNESS OF BREATH 10/15/2015 GABI CHAIREZINE Maxwell BOAT LOADER Ot R09.02 HYPOXEMIA 10/15/2015 Ot 305.1 TOBACCO USE DISORDER 10/15/2015 Ot 786.09 RESPIRATORY ABNORM NEC 10/15/2015 MIHAELA SEYMOUR Arreola BOAT LOADER Ot G47.9 SLEEP DISORDER, UNSPECIFIED 10/15/2015 GABI CHAIREZINE Maxwell BOAT LOADER Ot I63.9 CEREBRAL INFARCTION, UNSPECIFIED 10/15/2015 MIHAELA, SEYMOUR Arreola BOAT LOADER Ot R06.02 SHORTNESS OF BREATH 10/15/2015 GABI CHAIREZINE Maxwell BOAT LOADER Ot R09.02 HYPOXEMIA 10/16/2015 MIHAELA, SEYMOUR Arreola BOAT LOADER Ot G47.36 SLEEP RELATED HYPOVENTILATION IN CONDITI 10/16/2015 GABI CHAIREZINE E BOAT LOADER Ot G47.61 PERIODIC LIMB MOVEMENT DISORDER 10/16/2015 MIHAELA, SEYMOUR E BOAT LOADER Ot R06.83 SNORING 10/26/2015 MIHAELAGABISEYMOUR E BOAT LOADER Ot G47.36 SLEEP RELATED HYPOVENTILATION IN CONDITI 10/26/2015 MIHAELAGABI TARANGOINE E BOAT LOADER Ot G47.61 PERIODIC LIMB MOVEMENT DISORDER 10/26/2015 SEYMOUR CHAIREZ BOAT LOADER Ot R06.83 SNORING 11/18/2015 SEYMOUR CHAIREZ BOAT LOADER Ot R06.02 SHORTNESS OF BREATH 11/18/2015 MIHAELASEYMOUR TARANGO BOAT LOADER Ot R09.02 HYPOXEMIA 12/02/2015 ORENDER DO, AMEYA S Ot I65.23 OCCLUSION AND STENOSIS OF BILATERAL WALLS 01/16/2016 MIHAELASEYMOUR TARANGO BOAT LOADER Ot R06.02 SHORTNESS OF BREATH 01/16/2016 SEYMOUR CHAIREZ BOAT LOADER Ot R09.02 HYPOXEMIA 04/14/2016 Ot 305.1 TOBACCO USE DISORDER 04/14/2016 Ot 786.09 RESPIRATORY ABNORM NEC 04/14/2016 SEYMOUR CHAIREZ BOAT LOADER Ot G47.9 SLEEP DISORDER, UNSPECIFIED 04/14/2016 SEYMOUR CHAIREZ BOAT LOADER Ot I63.9 CEREBRAL INFARCTION, UNSPECIFIED 04/14/2016 SEYMOUR CHAIREZ BOAT LOADER Ot R06.02 SHORTNESS OF BREATH 04/14/2016 SEYMOUR CHAIREZ BOAT LOADER Ot R09.02 HYPOXEMIA 04/14/2016 KLAUDIANDER , AMEYA S Ot I65.23 OCCLUSION AND STENOSIS OF BILATERAL WALLS 04/14/2016 SEYMOUR CHAIREZ BOAT LOADER Ot R06.02 SHORTNESS OF BREATH 04/14/2016 SEYMOUR CHAIREZ BOAT LOADER Ot R09.02 HYPOXEMIA 04/19/2016 KLAUDIANDER DO, AMEYA [...] Ot N63 UNSPECIFIED LUMP IN BREAST 05/16/2016 KLAUDIANDER DO, AMEYA S Ot E03.9 HYPOTHYROIDISM, UNSPECIFIED 05/16/2016 ORENDER DO, AMEYA S Ot E04.1 NONTOXIC SINGLE THYROID NODULE 05/17/2016 KLAUDIANDHARVINDER TARANGO DOLINE S Ot N63 UNSPECIFIED LUMP IN BREAST 09/22/2016 Ot 305.1 TOBACCO USE DISORDER 09/22/2016 Ot 786.09 RESPIRATORY ABNORM NEC 09/22/2016 SEYMOUR CHAIREZ BOAT LOADER Ot G47.9 SLEEP DISORDER, UNSPECIFIED 09/22/2016 SEYMOUR CHAIREZ BOAT LOADER Ot I63.9 CEREBRAL INFARCTION, UNSPECIFIED 09/22/2016 SEYMOUR CHAIREZ BOAT LOADER Ot R06.02 SHORTNESS OF BREATH 09/22/2016 SEYMOUR CHAIREZ BOAT LOADER Ot R09.02 HYPOXEMIA 09/22/2016 KLAUDIANDER DAVID GALDAMEZAMEYA S Ot I65.23 OCCLUSION AND STENOSIS OF BILATERAL WALLS 09/22/2016 SEYMOUR CHAIREZ APRN Ot R06.02 SHORTNESS OF BREATH 09/22/2016 SEYMOUR CHAIREZ BOAT LOADER Ot R09.02 HYPOXEMIA 09/22/2016 HARVINDER PEREZ DOLINE [...] 786.09 RESPIRATORY ABNORM NEC 09/25/2016 SEYMOUR CHAIREZ BOAT LOADER Ot G47.9 SLEEP DISORDER, UNSPECIFIED 09/25/2016 SEYMOUR CHAIREZ BOAT LOADER Ot I63.9 CEREBRAL INFARCTION, UNSPECIFIED 09/25/2016 SEYMOUR CHAIREZ APRN Ot R06.02 SHORTNESS OF BREATH 09/25/2016 SEYMOUR CHAIREZ BOAT LOADER Ot R09.02 HYPOXEMIA 09/25/2016 KLAUDIANDER DAVID GALDAMEZAMEAY S Ot I65.23 OCCLUSION AND STENOSIS OF BILATERAL WALLS 09/25/2016 SEYMOUR CHAIREZ BOAT LOADER Ot R06.02 SHORTNESS OF BREATH 09/25/2016 SEYMOUR [...] NONTOXIC SINGLE THYROID NODULE 10/19/2016 SEYMOUR CHAIREZ BOAT LOADER Ot R06.02 SHORTNESS OF BREATH 10/19/2016 SEYMOUR CHAIREZ APRN Ot R09.02 HYPOXEMIA 10/23/2016 SHERLY GARCIA MD Ot E03.9 HYPOTHYROIDISM, UNSPECIFIED 10/23/2016 JOSE ALVARADO, SHERLY Billy Ot K63.5 POLYP OF COLON 10/23/2016 SHERLY GARCIA MD Ot Z12.11 ENCOUNTER FOR SCREENING FOR MALIGNANT NE 10/23/2016 SHERLY GARCIA MD Ot Z79.899 OTHER [facility] (CURRENT) DRUG THERAPY 10/24/2016 SHERLY GARCIA MD Ot Z01.818 ENCOUNTER FOR OTHER PREPROCEDURAL EXAMIN 10/24/2016 SHERLY GARCIA MD Ot Z12.11 ENCOUNTER FOR SCREENING FOR MALIGNANT NE 10/24/2016 SHERLY GARCIA MD Ot Z79.82 [facility] (CURRENT) USE OF ASPIRIN 10/25/2016 SHERLY GARCIA MD Ot Z01.818 ENCOUNTER FOR OTHER PREPROCEDURAL EXAMIN 10/25/2016 SHERLY GARCIA MD Ot Z12.11 ENCOUNTER FOR SCREENING FOR MALIGNANT NE 10/25/2016 SHERLY GARCIA MD Ot Z79.82 [facility] (CURRENT) USE OF ASPIRIN 10/26/2016 AMEYA PEREZ DO S Ot E04.1 NONTOXIC SINGLE THYROID NODULE 11/01/2016 SEYMOUR CHAIREZ BOAT LOADER Ot R06.02 SHORTNESS OF BREATH 11/01/2016 SEYMOUR [...] ADULT 11/09/2016 SHERLY GARCIA MD Ot Z79.82 [facility] (CURRENT) USE OF ASPIRIN 11/09/2016 SHERLY GARCIA MD Ot Z79.899 OTHER [facility] (CURRENT) DRUG THERAPY 11/09/2016 SHERLY GARCIA MD [...] MASS INDEX (BMI) 33.0-33.9, ADULT 11/09/2016 SHERLY GACRIA MD Ot Z79.82 [facility] (CURRENT) USE OF ASPIRIN 11/09/2016 SHERLY GARCIA MD Ot Z79.899 [facility] (CURRENT) DRUG THERAPY 11/09/2016 SHERLY GARCAI MD Ot Z86.73 PRSNL HX OF TIA [...] ADULT 11/16/2016 SHERLY GARCIA MD Ot Z79.82 [facility] (CURRENT) USE OF ASPIRIN 11/16/2016 SHERLY GARCIA MD Ot Z79.899 OTHER [facility] (CURRENT) DRUG THERAPY 11/16/2016 SHERLY GARCIA MD [...] Ot R53.83 OTHER FATIGUE 01/15/2018 SEYMOUR CHAIREZ BOAT LOADER Ot G47.9 SLEEP DISORDER, UNSPECIFIED 01/15/2018 SEYMOUR CHAIREZ BOAT LOADER Ot I63.9 CEREBRAL INFARCTION, UNSPECIFIED 01/15/2018 SEYMOUR CHAIREZ BOAT LOADER Ot R06.02 SHORTNESS OF BREATH 01/15/2018 SEYMOUR CHAIREZ BOAT LOADER Ot R09.02 HYPOXEMIA 01/15/2018 KLAUDIANDER DO, AMEYA S Ot I65.23 OCCLUSION AND STENOSIS OF BILATERAL WALLS 01/15/2018 SEYMOUR CHAIREZ BOAT LOADER Ot R06.02 SHORTNESS OF BREATH 01/15/2018 SEYMOUR CHAIREZ BOAT LOADER Ot R09.02 HYPOXEMIA 01/15/2018 KLAUDIANDER DO, AMEYA [...] 01/15/2018 JOSE ALVARADO, SHERLY Billy Ot Z79.82 [facility] (CURRENT) USE OF ASPIRIN 01/15/2018 CHRIS GALDAMEZ [...] SHERLY Billy Ot R53.83 OTHER FATIGUE 01/15/2018 CHRIS GALDAMEZ AMEYA S Ot I65.22 OCCLUSION AND [...] 12/21/16 11:50 T4 (thyroxine) 14.5 % 5.5-12.0 Complete blood count (CBC) with automated white blood cell (WBC) differential - 03/15/18 16:32 Blood leukocytes automated count (number/volume) 16.0 10*3/uL 4.3-11.0 Blood erythrocytes automated count (number/volume) 4.45 10*6/uL 4.35-5.85 Venous blood hemoglobin measurement (mass/volume) 14.1 g/dL 11.5-16.0 Blood hematocrit (volume fraction) 43 % 35-52 Automated erythrocyte mean corpuscular volume 97 [foz_us] 80-99 Automated erythrocyte mean corpuscular hemoglobin (mass per erythrocyte) 32 pg 25-34 Automated erythrocyte mean corpuscular hemoglobin concentration measurement ( mass/volume) 33 g/dL 32-36 Automated erythrocyte distribution width ratio 12.7 % 10.0-14.5 Automated blood platelet count (count/volume) 331 10*3/uL 130-400 Automated blood platelet mean volume measurement 10.0 [foz_us] 7.4-10.4 Automated blood neutrophils/100 leukocytes 95 % 42-75 Automated blood lymphocytes/100 leukocytes 3 % 12-44 Blood monocytes/100 leukocytes 2 % 0-12 Automated blood eosinophils/100 leukocytes 0 % 0-10 Automated blood basophils/100 leukocytes 0 % 0-10 Blood neutrophils automated count (number/volume) 15.1 10*3 1.8-7.8 Blood lymphocytes automated count (number/volume) 0.5 10*3 1.0-4.0 Blood monocytes automated count (number/volume) 0.3 10*3 0.0-1.0 Automated eosinophil count 0.0 10*3/uL 0.0-0.3 Automated blood basophil count (count/volume) 0.0 10*3/uL 0.0-0.1 Blood manual differential performed detection - 03/15/18 16:32 Blood monocytes/100 leukocytes 1 % NRG Manual blood segmented neutrophils/100 leukocytes 55 % NRG Blood band neutrophils/100 leukocytes 38 % NRG Manual blood lymphocytes/100 leukocytes 5 % NRG Manual eosinophils/100 leukocytes in nose 0 % NRG Manual blood basophils/100 leukocytes 0 % NRG Blood erythrocyte morphology finding identification NORMAL NRG Blood toxic granules detection by light microscopy 1+ NRG Manual blood metamyelocytes/100 leukocytes 1 % NRG Influenza virus A and B antigen detection - 03/15/18 16:32 FLU RESULT NEGATIVE FOR INFLUENZA A AND B ANTIGENS BY [facility] Comprehensive metabolic panel - 03/15/18 16:32 Serum or plasma sodium measurement (moles/volume) 140 mmol/L 135-145 Serum or plasma potassium measurement (moles/volume) 3.6 mmol/L 3.6-5.0 Serum or plasma chloride measurement (moles/volume) 98 mmol/L 98-107 Carbon dioxide 25 mmol/L 21-32 Serum or plasma anion gap determination (moles/volume) 17 mmol/L 5-14 Serum or plasma urea nitrogen measurement (mass/volume) 15 mg/dL 7-18 Serum or plasma creatinine measurement (mass/volume) 1.31 mg/dL 0.60-1.30 Serum or plasma urea nitrogen/creatinine mass ratio 11 NRG Serum or plasma creatinine measurement with calculation of estimated glomerular filtration rate 41 NRG Serum or plasma glucose measurement (mass/volume) 268 mg/dL 70-105 Serum or plasma calcium measurement (mass/volume) 9.0 mg/dL 8.5-10.1 Serum or plasma total bilirubin measurement (mass/volume) 1.9 mg/dL 0.1-1.0 Serum or plasma alkaline phosphatase measurement (enzymatic activity/volume) 85 U/L 40-136 Serum or plasma aspartate aminotransferase measurement (enzymatic activity/ volume) 16 U/L 5-34 Serum or plasma alanine aminotransferase measurement (enzymatic activity/volume ) 13 U/L 0-55 Serum or plasma protein measurement (mass/volume) 7.5 g/dL 6.4-8.2 Serum or plasma albumin measurement (mass/volume) 4.0 g/dL 3.2-4.5 CALCIUM CORRECTED 9.0 mg/dL 8.5-10.1 Magnesium - 03/15/18 16:32 Magnesium 1.4 mg/dL 1.8-2.4 Serum or plasma troponin i.cardiac measurement (mass/volume) - 03/15/18 16:32 Serum or plasma troponin i.cardiac measurement (mass/volume) < ng/ mL <0.30 PT panel in platelet poor plasma by coagulation assay - 03/15/18 16:32 Prothrombin time (PT) in platelet poor plasma by coagulation assay 17.6 s 12.2-14.7 INR in platelet poor plasma or blood by coagulation assay 1.4 0.8-1.4 Activated partial thromboplastin time (aPTT) in platelet poor plasma bycoagulation assay - 03/15/18 16:32 Activated partial thromboplastin time (aPTT) in platelet poor plasma bycoagulation assay 29 s 24-35 Blood lactic acid measurement (moles/volume) - 03/15/18 16:32 Blood lactic acid measurement (moles/volume) 6.48 mmol/L 0.50-2.00 Arterial blood gas measurement - 03/15/18 16:48 Blood pCO2 38 mm[Hg] 35-45 Blood pO2 62 mm[Hg] 79-93 Arterial blood bicarbonate measurement (moles/volume) 23 mmol/L 23-27 Arterial blood base excess by calculation -0.7 mmol/L - 2.5-2.5 Arterial blood oxygen saturation measurement 92 % 94-100 * Inhaled oxygen flow rate 12 L NRG Arterial blood pH measurement with patient temperature correction 7.40 7.37-7.43 Arterial blood carbon dioxide, total measurement (moles/volume) 24.6 mmol/L 21.0-31.0 Body site R RADIAL NRG Assessment of wrist artery patency prior to arterial puncture POSITIVE NRG Setting of ventilation mode NO NRG Measurement of body temperature 98.4 NRG Encounters ACCT No. Visit Date/Time Discharge Status Pt. Type Provider Facility Loc./Unit Complaint [id number] 01/08/2018 13:42:00 01/08/2018 23:59:59 CLS Outpatient AMEYA PEREZ DO [facility] RAD CAROTID ARTERY STENOSIS [id number] 06/06/2017 13:33:00 06/06/2017 23:59:59 CLS Outpatient SHERLY GARCIA MD [facility] LAB THYROID NODULE/ FATIQUE [id number] 01/22/2017 08:05:00 01/22/2017 23:59:59 CLS Outpatient AMEYA PEREZ DO [facility] RAD F/U L BREAST CYST/ AB MAMMO [id number] 12/21/2016 11:28:00 12/21/2016 23:59:59 CLS Outpatient SHERLY GARCIA MD [facility] LAB TOTAL THYROIDECTOMY [id number] 11/14/2016 11:25:00 11/14/2016 23:59:59 CLS Outpatient AMEYA PEREZ DO [facility] RAD COUGH,DYSPNEA [id number] 11/08/2016 07:30:00 11/09/2016 10:48:00 DIS Outpatient SHERLY GARCIA MD [facility] SDC THYROID NODULES [id number] 11/01/2016 09:08:00 11/01/2016 11:30:00 DIS Outpatient SHERLY GARCIA MD [facility] PREOP THYROID NODULES [id number] 10/23/2016 11:13:00 10/23/2016 14:15:00 DIS Outpatient SHERLY GARCIA MD [facility] ENDO SCREENING [id number] 10/19/2016 07:00:00 10/19/2016 23:59:59 CLS Outpatient SHERLY GARCIA MD [facility] PREOP COLONOSCOPY [id number] 10/05/2016 13:36:00 10/05/2016 23:59:59 CLS Outpatient AMEYA PEREZ DO [facility] RAD BILATERAL THYROID NODULE [id number] 09/25/2016 12:25:00 09/25/2016 23:59:59 CLS Outpatient AMEYA PEREZ DO S [facility] RAD THYROID NODULE E04.1 [id number] 05/05/2016 07:52:00 05/05/2016 23:59:59 CLS Outpatient HARVINDER PEREZ DOLINE S [facility] RAD LT BREAST FOCAL ASYMMETRY [id number] 04/25/2016 10:27:00 04/25/2016 23:59:59 CLS Outpatient AMEYA PEREZ DO S [facility] CARD HYPOTHYROIDISM, NODULE [id number] 04/14/2016 11:27:00 04/14/2016 23:59:59 CLS Outpatient AMEYA PEREZ DO S [facility] RAD SCREENING,CAROTID ARTERY STENOSIS,HYPOTHYROIDISM [id number] 01/17/2016 08:15:00 01/17/2016 23:59:59 CLS Preadmit SEYMOUR CHAIREZ APRN [facility] PULM SOB,HYPOXEMIA REQUIRING OXYGEN [id number] 01/13/2016 09:00:00 01/16/2016 00:01:00 DIS Outpatient SEYMOUR CHAIREZ APRN [facility] PULM SOB,HYPOXEMIA REQUIRING OXYGEN [id number] 11/02/2015 17:38:00 11/02/2015 23:59:59 CLS Outpatient AMEYA PEREZ DO S [facility] RAD SOB,HYPOXEMIA [id number] 10/15/2015 20:02:00 10/16/2015 07:05:00 DIS Outpatient SEYMOUR CHAIREZ APRN [facility] SLEEP EXCESSIVE DAYTIME SLEEPINESS,HYPERSOMNIA [id number] 09/08/2015 14:12:00 09/08/2015 23:59:59 CLS Outpatient SEYMOUR CHAIREZ APRN [facility] RT SOB,HYPOXEMIA REQUIRING OXYGEN [id number] 03/15/2018 17:30:00 ACT Inpatient JUN LOUIS DO [facility] ICU SEPSIS,BILAT PNEUMONIA,COPD,DM,HPOMEGNESMIA, RENAL [id number] 07/31/2015 14:58:00 ACT Inpatient AMEYA PEREZ DO [facility] 4TH COPD EXACERBATION HYPOXIA [facility] [id number] 10/24/2011 16:50:00 Document Registration
[2018-03-15] MEDS ORDERED: CATHETER FLUSH 10 ML SYR IV PRN (19:15)
[2018-03-15] MEDS ORDERED: ONDANSETRON 4 MG/2 ML (SDV) Z0FRAN IV PRN (19:15)
[2018-03-15] MEDS ORDERED: FLU QUADRIvalent (5+ YOA) 2018-2019 (AFLURIA) 0.5 ML IM ONE (19:15)
[2018-03-15] MEDS ORDERED: RT-ALBUTEROL/IPRATROPIUM 3 ML (DUONEB) VIAL INH PRN (19:45)
[2018-03-15] MEDS: MAGNESIUM 1 GM/D5W 100 ML IVPB IV SCH ×3 (19:45→21:53)
[2018-03-15] MEDS: KETOROLAC 15 MG/ML VIAL IV PRN (19:46)
[2018-03-15] MEDS: ACETAMINOPHEN 500 MG TAB (TYLENOL) PO PRN (19:46)
[2018-03-15] MEDS: NS W/KCL 20 MEQ/L 1,000 ML IV SCH (19:51)
[2018-03-15 20:24] LABS: BILIRUBIN,URINE NEGATIVE (NEGATIVE); CLARITY,URINE VERY CLOUDY; COLOR,URINE AMBER; GLUCOSE, URINE (UA) 2+ (NEGATIVE); KETONES,URINE 2+ (NEGATIVE); LEUKOCYTE ESTERASE ,URINE 1+ (NEGATIVE); NITRITE,URINE NEGATIVE (NEGATIVE); PH,URINE 5 (5-9); PROTEIN,URINE 3+ (NEGATIVE); UROBILINOGEN,URINE NORMAL (NORMAL)
[2018-03-15 20:37] LABS: AMORPHOUS SEDIMENT,UR MOD AMOR URATES /LPF; RBC,URINE 0-2 /HPF; SQUAMOUS EPITHELIAL CELL,UR RARE /HPF; WBC,URINE 0-2 /HPF
[2018-03-15] MEDS ORDERED: NS IV 1000 ML 1,000 ML ONE (20:37)
[2018-03-15] MEDS: inSUlin ASPART (NovoLOG) 1 UNIT/0.01 ML (CHARGE PER UNIT) SC SCH (21:56)
[2018-03-15] MEDS: RT-ALBUTEROL/IPRATROPIUM 3 ML (DUONEB) VIAL INH SCH (22:15)
[2018-03-16] VITALS (35 sets, daily range): BP systolic 78–136; BP diastolic 44–87
[2018-03-16] MEDS: NS W/KCL 20 MEQ/L 1,000 ML IV SCH ×7 (00:30→23:16)
[2018-03-16] MEDS: methylPREDNISolone 125 MG (Solu-MEDROL) VIAL IV SCH ×5 (00:30→23:20)
[2018-03-16] MEDS: PIPERACILLIN/TAZO 4.5 GM/NS 100 ML IV SCH ×8 (00:30→23:21)
[2018-03-16] MEDS: RT-ALBUTEROL/IPRATROPIUM 3 ML (DUONEB) VIAL INH SCH ×6 (02:12→21:59)
[2018-03-16 04:08] LABS: ABG BASE EXCESS -6.5 MMOL/L (-2.5-2.5); ABG OXYGEN SATURATION 92 % (94-100); ABG PCO2 43 MMHG (35-45); ABG PO2 63 MMHG (79-93); ABG TCO2 20.6 MMOL/L (21.0-31.0)
[2018-03-16 04:16] LABS: BASOPHILS % (AUTO) 0 % (0-10); EOSINOPHILS # (AUTO) 0.5 10^3/uL (0.0-0.3); EOSINOPHILS % (AUTO) 2 % (0-10); HEMATOCRIT 41 % (35-52); HEMOGLOBIN 13.2 G/DL (11.5-16.0); LYMPHOCYTES # (AUTO) 0.6 X 10^3 (1.0-4.0); LYMPHOCYTES % (AUTO) 3 % (12-44); MEAN CORPUSCULAR HEMOGLOBIN 32 PG (25-34); MEAN CORPUSCULAR HGB CONC 33 G/DL (32-36); MEAN CORPUSCULAR VOLUME 99 FL (80-99); MONOCYTES # (AUTO) 0.3 X 10^3 (0.0-1.0); MONOCYTES % (AUTO) 1 % (0-12); NEUTROPHILS # (AUTO) 21.1 X 10^3 (1.8-7.8); NEUTROPHILS % (AUTO) 94 % (42-75); PLATELET COUNT 246 10^3/uL (130-400); RED CELL DISTRIBUTION WIDTH 12.9 % (10.0-14.5); WHITE BLOOD COUNT 22.5 10^3/uL (4.3-11.0)
[2018-03-16 04:36] LABS: ABG PH 7.27 (7.37-7.43); ALLENS TEST POSITIVE; INSPIRED O2 65%; PATIENT TEMP 97.5; VENTILATOR YES
[2018-03-16 04:45] LABS: BUN/CREATININE RATIO 16; CALCIUM 8.1 MG/DL (8.5-10.1); CARBON DIOXIDE 14 MMOL/L (21-32); CHLORIDE 112 MMOL/L (98-107); CREATININE SERUM 0.88 MG/DL (0.60-1.30); GFR ESTIMATED > 60; GLUCOSE 225 MG/DL (70-105); MAGNESIUM 2.1 MG/DL (1.8-2.4); PHOSPHORUS 2.5 MG/DL (2.3-4.7); POTASSIUM 3.7 MMOL/L (3.6-5.0); SODIUM 141 MMOL/L (135-145)
[2018-03-16] MEDS: POTASSIUM CL 10MEQ/50ML IVPB 50 ML IV SCH (05:35)
[2018-03-16] MEDS: KCL 20 MEQ TAB (K-DUR) PO SCH (05:35)
[2018-03-16] MEDS: MAGNESIUM 1 GM/100 ML IVPB 100 ML IV SCH (05:35)
[2018-03-16] MEDS: inSUlin ASPART (NovoLOG) 1 UNIT/0.01 ML (CHARGE PER UNIT) SC SCH (05:43)
--- NOTE | 2018-03-16 06:34 | Pulmonary Consultation ---
History of Present Illness History of Present Illness Date of Consultation 03/16/18 06:29 Time Seen by Provider: 06:53 Date of Admission History of Present Illness 67yo with hx of severe oxygen dependent COPD presented to ED secondary to worsening SOB, coughing, and fever. Pt's Sp02 at home was 70% on 2 liters of oxygen via a NC. She has been hospitalized in the past for COPDAE. She is known to my office. I am consulted for pulmonary/cc management. Allergies and Home Medications Allergies Coded Allergies: No Known Drug Allergies (Unverified , 03/15/18) Home Medications Aclidinium [place] 400 Mcg Aer.pow.ba, 400 MCG IH DAILY, (Reported) Aspirin 81 Mg Tab.chew, 81 MG PO DAILY, (Reported) Atorvastatin Calcium 40 Mg Tablet, 40 MG PO HS, (Reported) Cetirizine HCl 10 Mg Tablet, 10 MG PO DAILY, (Reported) Cholecalciferol (Vitamin D3) 1,000 Unit Capsule, 1,000 UNIT PO DAILY, (Reported) Hydrocodone Bit/Acetaminophen 1 Each Tablet, 1-2 TAB PO 4-6HR PRN for PAIN Prescribed by: SHERLY GARCIA on 11/08/16 1029 Hydrocodone Bit/Acetaminophen 1 Each Tablet, 1-2 TAB PO 4-6HR PRN for PAIN Prescribed by: SHERLY GARCIA on 11/08/16 1136 Levothyroxine Sodium 100 Mcg Tablet, 100 MCG PO DAILY, (Reported) Mometasone/Formoterol 13 Gm Hfa.aer.ad, 2 PUFF IH BID, (Reported) Montelukast Sodium 10 Mg Tablet, 10 MG PO HS, (Reported) Ranitidine HCl 150 Mg Tablet, 150 MG PO DAILY, (Reported) Ropinirole HCl 0.5 Mg Tablet, 0.5 MG PO HS, (Reported) Sertraline HCl 50 Mg Tablet, 50 MG PO HS, (Reported) Past Mwbzlls-Qhgxqd-Eigyfu Hx Past Med/Social Hx: Reviewed Nursing Past Med/Soc Hx Patient Social History Alcohol Use: Denies Use Recreational Drug Use: No Smoking Status: Former Smoker Type Used: Cigarettes Former Smoker, Quit: Oct 20, 2015 Recent Foreign Travel: No Contact w/Someone Who Travel: No Recent Infectious Disease Expo: No Recent Hopitalizations: No Physical Abuse: No Sexual Abuse: No Mistreated: No Fear: No Immunizations Up To Date Tetanus Booster (TDap): Unknown Date of Pneumonia Vaccine: Feb 14, 2016 Date of Influenza Vaccine: Feb 14, 2016 Seasonal Allergies Seasonal Allergies: No Past Medical History Surgeries: Yes Adenoidectomy, Tonsillectomy Respiratory: Yes (02 1L AT NIGHT AND NEEDED) COPD Cardiac: Yes High Cholesterol Neurological: Yes (essential tremor LEFT HAND) Stroke Reproductive Disorders: No Sexually Transmitted Disease: No HIV/AIDS: No Genitourinary: No Gastrointestinal: Yes Gastroesophageal Reflux, Polyps Musculoskeletal: No Endocrine: Yes (THYROID NODULES) Loss of Vision: Bilateral Hearing Impairment: Denies Cancer: No Psychosocial: Yes Depression Integumentary: No Blood Disorders: No Adverse Reaction/Blood Tranf: No (N/A) Family Medical History Reviewed Nursing Family Hx Congenital heart disease 19 FATHER No Pertinent Family Hx, CVA, Hypertension Review of Systems Time Seen by Provider: 06:52 Constitutional: Fever, Chills, Sweats Eyes: No: Pain, Vision change, Conjunctivae inflammation, Eyelid inflammation, Other, Redness ENT: No: Ear pain, Ear discharge, Nose pain, Nose discharge, Nose congestion, Mouth pain, Mouth swelling, Throat pain, Throat swelling, Other Respiratory: Cough, Dry, Shortness of breath, SOB with excertion, Wheezing; No : Sputum Cardiovascular: Paroxysmal Noc. Dyspnea Neurological: Weakness Sepsis Event Evaluation Height, Weight, BMI Height: 5'3.00" Weight: 196lbs. 6.0oz. 89.846164aa; 33.9 BMI Method:Stated Exam Exam Vital Signs Date Time Temp Pulse Resp B/P (MAP) Pulse Ox O2 Delivery O2 Flow Rate FiO2 03/16/18 06:00 115 24 105/80 (88) 95 Vapotherm 65.00 20.00 03/16/18 05:00 112 21 106/87 (93) 98 Vapotherm 65.00 20.00 03/16/18 04:01 97.5 03/16/18 04:00 Vapotherm 20.00 65 03/16/18 04:00 108 19 127/49 (75) 95 Vapotherm 65.00 20.00 03/16/18 03:00 104 18 95/52 (66) 97 Vapotherm 65.00 20.00 03/16/18 02:13 94 Vapotherm 20.00 65 03/16/18 02:00 96 19 100/44 (62) 97 Vapotherm 65.00 20.00 03/16/18 01:10 102 03/16/18 01:00 101 18 106/73 (84) 93 Vapotherm 65.00 20.00 03/16/18 00:00 Vapotherm 20.00 65 03/16/18 00:00 105 20 95/55 (68) 95 Vapotherm 65.00 20.00 03/15/18 23:00 107 20 116/58 (77) 97 Vapotherm 65.00 20.00 03/15/18 22:18 95 Vapotherm 20.00 65 03/15/18 22:00 108 19 116/59 (78) 92 Vapotherm 65.00 20.00 03/15/18 21:58 99.1 03/15/18 21:11 101.2 03/15/18 21:00 116 25 103/54 (70) 96 Vapotherm 65.00 20.00 03/15/18 20:00 126 37 122/66 (84) 92 Vapotherm 65.00 20.00 03/15/18 20:00 Vapotherm 20.00 65 03/15/18 19:45 126 21 116/57 (76) 93 Vapotherm 65.00 20.00 03/15/18 19:36 116 95 65 03/15/18 19:30 128 34 88 Vapotherm 65.00 20.00 03/15/18 19:24 125 03/15/18 19:20 93 Vapotherm 20.00 65 03/15/18 19:15 125 20 103/57 (72) 86 Vapotherm 65.00 20.00 03/15/18 19:00 102.8 126 37 125/60 (81) 93 Vapotherm 65.00 20.00 03/15/18 17:00 95 High Flow N/C 11.00 03/15/18 16:57 98.4 116 18 114/48 (70) 92 OxyMask 12.00 03/15/18 16:27 91 OxyMask 12.00 I & O 03/16/18 07:00 Intake Total 200 ml Output Total 375 ml Balance -175 ml Height & Weight Height: 5'3.00" Weight: 196lbs. 6.0oz. 89.205894wy; 33.9 BMI Method:Stated General Appearance: Anxious, Chronically ill, Moderate Distress Respiratory: Accessory Muscle Use, Crackles, Decreased Breath Sounds, Respiratory Distress Capillary Refill: Less Than 3 Seconds Gastrointestinal: normal bowel sounds, non tender, soft, no organomegaly Extremity: Normal Capillary Refill, Normal Inspection Neurologic/Psychiatric: Alert, Oriented x3 Skin: Warm/Dry Results Lab Laboratory Tests 03/15/18 16:32 03/16/18 04:00 Assessment/Plan Assessment/Plan Acute on chronic respiratory failure with hypoxia -Low threshold for intubation -Start noninvasive ventilation Pneumonia with severe sepsis secondary to pneumonia and UTI -Continue IVF for now. -Continue Zosyn -Await cao cultures -Check CT of chest with contrast r/o empyema -MRSA swab -influenza is negative but secondary to patient's high fever will go ahead and treat with Tamiflu Severe COPD with AE -Decrease Solumedrol to 40 IV Q6 -SVNs Q4 -Oxygen Severe Metabolic lactic acidosis -Give 2 amps of bicarb -Continue to monitor Tobacco use -Education Urine is very concentrated 35cc/hr currently Discussed patients current condition and treatment plan in detail with patient, daughter and RN. I am going to have low threshold for placing patient on ventilator secondary to pneumonia and severe sepsis. Critical Care: Critically Ill Patient MICHELLE MEDINA DO Mar 16, 2018 06:34
[2018-03-16] MEDS: RT-ADVAIR HFA 115/21 MCG PER PUFF IH SCH ×2 (06:42→18:34)
[2018-03-16] MEDS ORDERED: SODIUM BICARB 8.4% 50 MEQ/50 ML (ABBOTT) SYR IV ONE (06:45)
[2018-03-16] MEDS ORDERED: inSUlin DETERMIR 1 UNIT/0.01 ML (LEVEMIR) CHARGE PER UNIT SQ ONE (06:45)
[2018-03-16 06:47] LABS: BAND NEUTROPHILS 1 %; LYMPHOCYTES % (MANUAL) 6 %; METAMYELOCYTES % 2 %; MONOCYTES % (MANUAL) 2 %; NEUTROPHILS % (MANUAL) 89 %
[2018-03-16] MEDS ORDERED: SODIUM BICARB 8.4% 50 MEQ/50 ML (ABBOTT) SYR ONE (06:48)
[2018-03-16] MEDS: ENOXAPARIN 40 MG/0.4 ML (LOVENOX) SYR SC SCH (07:01)
[2018-03-16] MEDS: ACETAMINOPHEN 500 MG TAB (TYLENOL) PO PRN (07:01)
[2018-03-16] MEDS: KETOROLAC 15 MG/ML VIAL IV PRN ×2 (07:34→14:17)
[2018-03-16] MEDS ORDERED: NS 250 ML (IVPB) BAG IV ONE (08:15)
[2018-03-16] MEDS ORDERED: RECEIVED CONTRAST (Hold Metformin) IV SCH (08:15)
[2018-03-16] MEDS ORDERED: IOHEXOL 350 MG/ML 150 ML (OMNIPAQUE 350) VIAL IV ONE (08:15)
--- NOTE | 2018-03-16 08:16 | Diagnostic Imaging Report ---
INDICATION: Sepsis, pneumonia, dyspnea. TECHNIQUE: Single view chest 3:49 AM. CORRELATION STUDY: 03/15/2018 FINDINGS: Extensive infiltrate of the right lung particularly at the mid and lower lung field persisting slightly increased. There is slightly increased prominent, particularly interstitial markings of the left lung. Heart size largely obscured but appears to be increased. Vasculature is prominent as well. IMPRESSION: 1. Continued bilateral pulmonary infiltrates right significantly greater than left overall appearing slightly increased and perhaps more consolidated. Dictated by: Dictated on workstation # [id number]
--- NOTE | 2018-03-16 08:28 | Diagnostic Imaging Report ---
PROCEDURE: CT angiography of the chest with contrast. TECHNIQUE: Multiple contiguous axial images were obtained through the chest after uneventful bolus administration of intravenous contrast. 2D reconstructed CTA MIP acquisitions were also performed. INDICATION: Mass, pulmonary embolism COMPARISON: Radiographs dated 03/16/2018 and 07/31/2015 FINDINGS: A right paratracheal lymph node is borderline enlarged measuring 1.0 cm in short dimension, slightly increased in size since 2016. Additional prominent right hilar and subcarinal lymph nodes are also present. Scattered vascular calcifications. No aneurysmal dilatation of the thoracic aorta. No pericardial effusion. No significant pleural effusion on the left with moderate sized pleural effusion on the right, particularly superiorly. Ylvh-be-nngdputp background emphysematous changes are present, greatest within upper lobes. Dependent interstitial and reticular opacities are seen within the left lung, particularly posteriorly and along the fissure. Complete opacification of the right lower lobe is noted with additional extensive opacities within the right middle lobe and right upper lobe. No pneumothorax. The airway is patent. No significant filling defect within the central or segmental pulmonary arteries. Cholelithiasis. The density of the liver is diffusely decreased. The visualized upper abdomen is otherwise unremarkable. Scattered osseous degenerative changes without acute osseous abnormality. IMPRESSION: No significant pulmonary embolus. Extensive bilateral pulmonary opacities, particularly within the right lung. Given air bronchograms, pneumonia is likely. This is associated with a moderate-sized right-sided pleural effusion. Given the densities on the left are dependently layering, this also suggests a component of possible interstitial edema. Background emphysematous changes. No definite obstructing mass lesion, though extensive pulmonary opacities slightly limits the evaluation. Therefore, recommend radiographic followup to ensure clearance of these opacities. Mild mediastinal adenopathy, favored to be reactive in nature. Cholelithiasis. Fatty infiltration of the liver. Additional findings as above. Dictated by: Dictated on workstation # [id number]
[2018-03-16 08:54] LABS: ABG BASE EXCESS -0.5 MMOL/L (-2.5-2.5); ABG OXYGEN SATURATION 95 % (94-100); ABG PCO2 44 MMHG (35-45); ABG PH 7.36 (7.37-7.43); ABG PO2 75 MMHG (79-93); ABG TCO2 25.1 MMOL/L (21.0-31.0)
[2018-03-16 08:56] LABS: ALLENS TEST YES-POS; INSPIRED O2 60%; PATIENT TEMP 101.4; VENTILATOR NO
[2018-03-16] MEDS ORDERED: morphine INJ 4 MG/ML 1 ML (VIAL/SYRINGE) IVP PRN ×2 (09:15→10:45)
[2018-03-16] MEDS ORDERED: proPOfol 200 MG/20 ML (DIPRIVAN) VIAL IV ONE (10:45)
[2018-03-16] MEDS ORDERED: PROPOFOL DRIP (ICU) 100 ML IV ONE ×2 (10:59→14:06)
[2018-03-16] MEDS ORDERED: NS IV 500 ML 500 ML ONE (10:59)
[2018-03-16] MEDS ORDERED: PHENYLEPHRINE INJ 10 MG/ML (NEO-SYNEPHRINE 1%) ONE (11:29)
--- NOTE | 2018-03-16 11:52 | Diagnostic Imaging Report ---
EXAMINATION: Portable supine AP chest at 11:32 a.m. INDICATION: Respiratory distress. FINDINGS: In the interval since the exam performed earlier today at 03:49 a.m., the patient has been intubated. The ET tube tip appears to be in good position overlying the proximal tracheal air shadow. An OG line has also been inserted. The tip of the OG line is not visualized, but it does extend below the diaphragm. The overall appearance of the chest itself has not changed significantly otherwise. IMPRESSION: 1. The patient has been intubated and the ET tube appears to be in good position. There is also now an OG line in place with the line extending below the diaphragm. 2. A follow-up study will be recommended for continued evaluation. Dictated by: Dictated on workstation # [id number]
--- NOTE | 2018-03-16 11:57 | History & Physical-Hospitalist ---
History of Present Illness HPI/Chief Complaint CC: Respiratory failure due to bilateral pneumonia HPI: This is a 67-year-old white female clinic patient of Dr. SALVADOR ww/h/o tobacco use with severe COPD with exacerbations the past known to Dr. Waite pulmonology clinic who remains on oxygen presented to the ER with cough shortness of breath found to have bilateral pneumonia with severe sepsis with tachycardia and acute renal failure with diabetes mellitus out of control. Patient was placed in the ICU empiric antibiotic coverage initiated and pulmonology consultation initiated. Patient was doing well until this morning after 5 L of fluid under severe sepsis protocol and progressed to acute respiratory failure and required intubation. Arterial line placement as been unsuccessful. Urinary output has decreased so will initiate cardiology consultation for possible volume overload may need Lasix to initiate urinary output. Overall patient has multisystem organ failure now respiratory failure intubated and completely supported but prognosis is very guarded. Source: RN/MD Exam Limitations: clinical condition (intubated) Date Seen 03/16/18 Time Seen by a Provider: 11:45 Attending Physician Cony Louis DO PCP Holli Salvador DO Referring Physician Date of Admission Mar 15, 2018 at 17:30 Home Medications & Allergies Home Medications Reviewed patient Home Medication Reconciliation performed by pharmacy medication reconciliations restorative care technician and/or nursing. Patients Allergies have been reviewed. Allergies Allergies Coded Allergies No Known Drug Allergies (Bicuidhxbz08/9/18) Past Nfmqgny-Ozivnl-Rbzauw Hx Past Med/Social Hx: Reviewed Nursing Past Med/Soc Hx, Reviewed and Corrections made Patient Social History Alcohol Use: Denies Use Recreational Drug Use: No Smoking Status: Former Smoker Former Smoker, Quit: Oct 20, 2015 Type Used: Cigarettes Physical Abuse Screen: No Sexual Abuse: No Recent Foreign Travel: No Contact w/other who traveled: No Recent Hopitalizations: No Recent Infectious Disease Expo: No Immunizations Up To Date Tetanus Booster (TDap): Unknown Date of Pneumonia Vaccine: Feb 14, 2016 Date of Influenza Vaccine: Feb 14, 2016 Seasonal Allergies Seasonal Allergies: No Past Medical History Surgeries: Adenoidectomy, Tonsillectomy Respiratory: COPD, Pneumonia Cardiac: High Cholesterol Neurological: Stroke Reproductive: No Sexually Transmitted Disease: No HIV/AIDS: No Gastrointestinal: Gastroesophageal Reflux, Polyps Loss of Vision: Bilateral Hearing Impairment: Denies Psychosocial: Depression History of Blood Disorders: No Adverse Reaction to Blood Centeno: No (N/A) Family History Reviewed Nursing Family Hx Congenital heart disease 19 FATHER No Pertinent Family Hx, CVA, Hypertension Review of Systems Constitutional: see HPI, chills, diaphoresis, dizziness, fever, malaise, weakness EENTM: no symptoms reported Respiratory: cough, dyspnea on exertion, orthopnea, phlegm, short of breath, wheezing Cardiovascular: no symptoms reported Gastrointestinal: loss of appetite, nausea Genitourinary: decreased output Musculoskeletal: no symptoms reported Skin: no symptoms reported Psychiatric/Neurological: No Symptoms Reported All Other Systems Reviewed Negative Unless Noted: Yes Physical Exam Physical Exam Vital Signs Vital Signs - First Documented 03/15/18 03/15/18 03/15/18 16:27 16:57 19:20 Temp 98.4 Pulse 116 Resp 18 B/P (MAP) 114/48 (70) Pulse Ox 91 O2 Delivery OxyMask O2 Flow Rate 12.00 FiO2 65 Capillary Refill : Less Than 3 Seconds Height, Weight, BMI Height: 5'3.00" Weight: 196lbs. 6.0oz. 89.908067px; 33.9 BMI Method:Stated General Appearance: Chronically ill, Obese, Other (intubated, sedated) Respiratory: Chest Non Tender, No Accessory Muscle Use, No Respiratory Distress , Decreased Breath Sounds, Other (on vent) Cardiovascular: Regular Rate, Rhythm, No Edema, No Gallop, No JVD, No Murmur, Normal Peripheral Pulses, Tachycardia Skin: Normal Color, Warm/Dry Results Results/Procedures Labs Laboratory Tests 03/15/18 16:32 03/16/18 04:00 Patient resulted labs reviewed. Assessment/Plan Admission Diagnosis Assessment: Acute on chronic respiratory failure with hypoxia now intubated Pneumonia Severe sepsis secondary to pneumonia and UTI Fever Severe COPD O2 dependent 27/11 Severe Metabolic lactic acidosis Tobacco use Decreased UOP Plan: Intubation IV abx Pulmonary expertise appreciated Guarded prognosis Consult Dr Thurman for pulmonary edema Admission Status: Inpatient Order (span 2 midnights) Reason for Inpatient Admission: Severe sepsis and intubation will require 7 days of inpt hospital stay Diagnosis/Problems Diagnosis/Problems (1) Bilateral pneumonia Status: Acute Qualifiers: Pneumonia type: due to unspecified organism Lung location: lower lobe of lung Qualified Codes: J18.1 - Lobar pneumonia, unspecified organism (2) Multisystem organ failure Status: Acute (3) Respiratory failure Status: Acute Qualifiers: Chronicity: acute on chronic Respiratory failure complication: hypoxia and hypercapnia Qualified Codes: J96.21 - Acute and chronic respiratory failure with hypoxia; J96.22 - Acute and chronic respiratory failure with hypercapnia (4) Airway intubation performed without difficulty Status: Acute (5) Metabolic acidosis Status: Acute (6) Fever Status: Acute Qualifiers: Fever type: unspecified Qualified Codes: R50.9 - Fever, unspecified (7) Pulmonary edema Status: Acute Qualifiers: Chronicity: acute Qualified Codes: J81.0 - Acute pulmonary edema (8) Volume overload Status: Acute Qualifiers: Hypervolemia type: unspecified Qualified Codes: E87.70 - Fluid overload, unspecified (9) Oliguria Status: Acute (10) Leukocytosis Status: Acute Qualifiers: Leukocytosis type: leukemoid reaction Qualified Codes: D72.823 - Leukemoid reaction (11) Acute renal failure Status: Resolved Qualifiers: Acute renal failure type: unspecified Qualified Codes: N17.9 - Acute kidney failure, unspecified (12) Diabetes mellitus type 2, uncontrolled Status: Acute Qualifiers: Glycemic state: with hyperglycemia Qualified Codes: E11.65 - Type 2 diabetes mellitus with hyperglycemia (13) COPD exacerbation Status: Acute (14) Hypoxia Status: Acute Clinical Quality Measures DVT/VTE Risk/Contraindication: Risk Factor Score Per Nursin RFS Level Per Nursing on Admit: 4+=Very High CONY LOUIS DO Mar 16, 2018 11:57
--- NOTE | 2018-03-16 12:11 | Anesthesia-Procedure Note ---
Procedures/Interventions Procedure Start/Stop/Diagnosis Date of Procedure: Mar 16, 2018 Start Time: 10:47 Referring Physician: Mariann Preprocedural Diagnosis: Sepsis Brief History Called to ICU to intubate. Pt decompensating over last few hours. SP02 90% on full Bipap settings. RT and RN @ bedside. Pts family at bedside. Discussed intubation and brief history obtained, pt and family wish to proceed. Propofol 120mg and Succinylcholine 80mg IV given. PPV with ambu at 15L, SP02 never >91%. DL x 1 with MAC 3, performed by GAIL Chambers. Grade 2 view. Atraumatic. Positive ETC02. BBS auscultated. Dr. Waite called, requested arterial line placement for hemodynamic monitoring and ABG draws. @1055: Pt beginning to rouse post intubation, and copious amounts of secretions suctioned from ETT. SP02 low to mid 80's. Additional Propofol bolus (total of 80mg) and Rocuronium 30mg IV given while awaiting RN to initiate sedation protocol. RT @ bedside. Pt Fi02 100% and SP02 back to baseline following PPV, suctioning/lavage. Multiple attempts made bilaterally to place radial arterial line, unable to get catheter to thread. Neosynephrine 100mcg IV given at one point, to accommodate palpable pulse, and transient drop in BP following Propofol gtt initiation. Pt's BP now stable at this time, discontinued further attempts. Stop Time: 11:55 BHARATHI POWELL CRNA Mar 16, 2018 12:11
[2018-03-16 12:23] LABS: ABG BASE EXCESS -0.9 MMOL/L (-2.5-2.5); ABG OXYGEN SATURATION 95 % (94-100); ABG PO2 87 MMHG (79-93); ABG TCO2 28.9 MMOL/L (21.0-31.0)
[2018-03-16 12:38] LABS: ABG PH 7.18 (7.37-7.43)
[2018-03-16 12:41] LABS: ABG PCO2 75 MMHG (35-45)
[2018-03-16 12:42] LABS: ALLENS TEST YES-POS; INSPIRED O2 100%; PATIENT TEMP 98.7; VENTILATOR YES
[2018-03-16] MEDS ORDERED: FUROSEMIDE 40 MG/4 ML INJ (LASIX) ONE (13:08)
[2018-03-16] MEDS: PANTOPRAZOLE 40 MG (PROTONIX) VIAL IV SCH (13:52)
[2018-03-16] MEDS: OSELTAMIVIR 75 MG (TAMIFLU) CAPSULE PO SCH ×2 (13:52→21:06)
[2018-03-16] MEDS: LEVOTHYROXINE 112 MCG (LEVOTHROID) TAB PO SCH (13:52)
[2018-03-16] MEDS ORDERED: FUROSEMIDE 40 MG/4 ML INJ (LASIX) IVP NR (13:58)
[2018-03-16] MEDS ORDERED: ROCURONIUM 10 MG/ML 5 ML SYRINGE IV ONE (14:18)
[2018-03-16] MEDS: inSUlin ASPART (NovoLOG) 1 UNIT/0.01 ML (CHARGE PER UNIT) SQ SCH ×3 (14:18→23:36)
[2018-03-16] MEDS ORDERED: SUCCINYLCHOLINE INJ 100 MG/5 ML SYR INJ ONE (14:18)
[2018-03-16] MEDS ORDERED: NS (IVPB) 50 ML ONE (14:39)
--- NOTE | 2018-03-16 15:15 | Consultation-Cardiology ---
HPI-Cardiology Cardiology Consultation Date of Consultation 03/16/18 Date of Admission Time Seen by Provider: 15:09 Indication: Acute respiratory failure HPI 67-year-old lady with history of advanced COPD, admitted for increasing shortness of breath and pneumonia, was receiving treatment, progress the past 24 hours resulted in respiratory failure and intubation. She is currently sedated and intubated, ventilator dependent. She is borderline hypotensive. No reported chest pain. No reported cardiac history, still having fever with temperature 101. Home Medications & Allergies Allergies: Coded Allergies: No Known Drug Allergies (Unverified , 03/15/18) Home Medication List Reviewed: Yes XYI-Zczszy-Tzemoh Hx Patient Social History Alcohol Use: Denies Use Recreational Drug Use: No Smoking Status: Former Smoker Type Used: Cigarettes Recent Foreign Travel: No Recent Infectious Disease Expo: No Recent Hopitalizations: No Physical Abuse Screen: No Sexual Abuse: No Immunizations Up To Date Tetanus Booster (TDap): Unknown Date of Pneumonia Vaccine: Feb 14, 2016 Date of Influenza Vaccine: Feb 14, 2016 Past Medical History As described below Family Medical History Significant Family History: No Pertinent Family Hx, CVA, Hypertension Family History: Congenital heart disease 19 FATHER Review of Systems Constitutional: other (Unable to provide review of system, currently sedated and intubated) Reviewed Test Results Reviewed Test Results Lab Laboratory Tests Test 03/15/18 16:32 03/15/18 16:48 03/15/18 18:38 03/15/18 20:15 Range/Units White Blood Count 16.0 H 4.3-11.0 10^3/uL Red Blood Count 4.45 4.35-5.85 10^6/uL Hemoglobin 14.1 11.5-16.0 G/DL Hematocrit 43 35-52 % Mean Corpuscular Volume 97 80-99 FL Mean Corpuscular Hemoglobin 32 25-34 PG Mean Corpuscular Hemoglobin Concent 33 32-36 G/DL Red Cell Distribution Width 12.7 10.0-14.5 % Platelet Count 331 130-400 10^3/uL Mean Platelet Volume 10.0 7.4-10.4 FL Neutrophils (%) (Auto) 95 H 42-75 % Lymphocytes (%) (Auto) 3 L 12-44 % Monocytes (%) (Auto) 2 0-12 % Eosinophils (%) (Auto) 0 0-10 % Basophils (%) (Auto) 0 0-10 % Neutrophils # (Auto) 15.1 H 1.8-7.8 X 10^3 Lymphocytes # (Auto) 0.5 L 1.0-4.0 X 10^3 Monocytes # (Auto) 0.3 0.0-1.0 X 10^3 Eosinophils # (Auto) 0.0 0.0-0.3 10^3/uL Basophils # (Auto) 0.0 0.0-0.1 10^3/uL Neutrophils % (Manual) 55 % Lymphocytes % (Manual) 5 % Monocytes % (Manual) 1 % Eosinophils % (Manual) 0 % Basophils % (Manual) 0 % Metamyelocytes % 1 % Band Neutrophils 38 % Toxic Granulation 1+ Blood Morphology Comment NORMAL Prothrombin Time 17.6 H 12.2-14.7 SEC INR Comment 1.4 0.8-1.4 Activated Partial Thromboplast Time 29 24-35 SEC Sodium Level 140 135-145 MMOL/L Potassium Level 3.6 3.6-5.0 MMOL/L Chloride Level 98 98-107 MMOL/L Carbon Dioxide Level 25 21-32 MMOL/L Anion Gap 17 H 5-14 MMOL/L Blood Urea Nitrogen 15 7-18 MG/DL Creatinine 1.31 H 0.60-1.30 MG/DL Estimat Glomerular Filtration Rate 41 BUN/Creatinine Ratio 11 Glucose Level 268 H 70-105 MG/DL Lactic Acid Level 6.48 *H 8.04 *H 0.50-2.00 MMOL/L Calcium Level 9.0 8.5-10.1 MG/DL Corrected Calcium 9.0 8.5-10.1 MG/DL Magnesium Level 1.4 L 1.8-2.4 MG/DL Total Bilirubin 1.9 H 0.1-1.0 MG/DL Aspartate Amino Transf (AST/SGOT) 16 5-34 U/L Alanine Aminotransferase (ALT/SGPT) 13 0-55 U/L Alkaline Phosphatase 85 40-136 U/L Troponin I < 0.30 <0.30 NG/ML Total Protein 7.5 6.4-8.2 GM/DL Albumin 4.0 3.2-4.5 GM/DL Blood Gas Puncture Site R RADIAL Blood Gas Patient Temperature 98.4 Arterial Blood pH 7.40 7.37-7.43 Arterial Blood Partial Pressure CO2 38 35-45 MMHG Arterial Blood Partial Pressure O2 62 L 79-93 MMHG Arterial Blood HCO3 23 23-27 MMOL/L Arterial Blood Total CO2 24.6 21.0-31.0 MMOL/L Arterial Blood Oxygen Saturation 92 L 94-100 % Arterial Blood Base Excess -0.7 -2.5-2.5 MMOL/L Emil Test POSITIVE Blood Gas Ventilator Setting NO Blood Gas Inspired Oxygen 12 L Urine Color KALIN H Urine Clarity VERY CLOUDY H Urine pH 5 5-9 Urine Specific [place] 1.025 H 1.016-1.022 Urine Protein 3+ H NEGATIVE Urine Glucose (UA) 2+ H NEGATIVE Urine Ketones 2+ H NEGATIVE Urine Nitrite NEGATIVE NEGATIVE Urine Bilirubin NEGATIVE NEGATIVE Urine Urobilinogen NORMAL NORMAL MG/DL Urine Leukocyte Esterase 1+ H NEGATIVE Urine RBC (Auto) 5+ H NEGATIVE Urine RBC 0-2 /HPF Urine WBC 0-2 /HPF Urine Squamous Epithelial Cells RARE /HPF Urine Crystals PRESENT H /LPF Urine Amorphous Sediment MOD JENNIFER URATES H /LPF Urine Bacteria NONE /HPF Urine Casts NONE /LPF Urine Mucus NEGATIVE /LPF Urine Culture Indicated NO Test 03/15/18 21:49 03/16/18 03:55 03/16/18 04:00 03/16/18 07:35 Range/Units Glucometer 284 H 70-110 MG/DL Blood Gas Puncture Site RT RADIAL Blood Gas Patient Temperature 97.5 Arterial Blood pH 7.27 *L 7.37-7.43 Arterial Blood Partial Pressure CO2 43 35-45 MMHG Arterial Blood Partial Pressure O2 63 L 79-93 MMHG Arterial Blood HCO3 19 L 23-27 MMOL/L Arterial Blood Total CO2 20.6 L 21.0-31.0 MMOL/L Arterial Blood Oxygen Saturation 92 L 94-100 % Arterial Blood Base Excess -6.5 L -2.5-2.5 MMOL/L Emil Test POSITIVE Blood Gas Ventilator Setting YES Blood Gas Inspired Oxygen 65% White Blood Count 22.5 H 4.3-11.0 10^3/uL Red Blood Count 4.10 L 4.35-5.85 10^6/uL Hemoglobin 13.2 11.5-16.0 G/DL Hematocrit 41 35-52 % Mean Corpuscular Volume 99 80-99 FL Mean Corpuscular Hemoglobin 32 25-34 PG Mean Corpuscular Hemoglobin Concent 33 32-36 G/DL Red Cell Distribution Width 12.9 10.0-14.5 % Platelet Count 246 130-400 10^3/uL Mean Platelet Volume 10.0 7.4-10.4 FL Neutrophils (%) (Auto) 94 H 42-75 % Lymphocytes (%) (Auto) 3 L 12-44 % Monocytes (%) (Auto) 1 0-12 % Eosinophils (%) (Auto) 2 0-10 % Basophils (%) (Auto) 0 0-10 % Neutrophils # (Auto) 21.1 H 1.8-7.8 X 10^3 Lymphocytes # (Auto) 0.6 L 1.0-4.0 X 10^3 Monocytes # (Auto) 0.3 0.0-1.0 X 10^3 Eosinophils # (Auto) 0.5 H 0.0-0.3 10^3/uL Basophils # (Auto) 0.0 0.0-0.1 10^3/uL Neutrophils % (Manual) 89 % Lymphocytes % (Manual) 6 % Monocytes % (Manual) 2 % Metamyelocytes % 2 % Band Neutrophils 1 % Sodium Level 141 135-145 MMOL/L Potassium Level 3.7 3.6-5.0 MMOL/L Chloride Level 112 #H 98-107 MMOL/L Carbon Dioxide Level 14 L 21-32 MMOL/L Anion Gap 15 H 5-14 MMOL/L Blood Urea Nitrogen 14 7-18 MG/DL Creatinine 0.88 0.60-1.30 MG/DL Estimat Glomerular Filtration Rate > 60 BUN/Creatinine Ratio 16 Glucose Level 225 H 70-105 MG/DL Lactic Acid Level 4.60 *H 3.42 *H 0.50-2.00 MMOL/L Calcium Level 8.1 L 8.5-10.1 MG/DL Phosphorus Level 2.5 2.3-4.7 MG/DL Magnesium Level 2.1 1.8-2.4 MG/DL B-Type Natriuretic Peptide 147.3 H <100.0 PG/ML Test 03/16/18 08:38 03/16/18 12:16 Range/Units Blood Gas Puncture Site L. RADIAL L.RADIAL Blood Gas Patient Temperature 101.4 98.7 Arterial Blood pH 7.36 L 7.18 *L 7.37-7.43 Arterial Blood Partial Pressure CO2 44 75 *H 35-45 MMHG Arterial Blood Partial Pressure O2 75 L 87 79-93 MMHG Arterial Blood HCO3 24 27 23-27 MMOL/L Arterial Blood Total CO2 25.1 28.9 21.0-31.0 MMOL/L Arterial Blood Oxygen Saturation 95 95 94-100 % Arterial Blood Base Excess -0.5 -0.9 -2.5-2.5 MMOL/L Emil Test YES-POS YES-POS Blood Gas Ventilator Setting NO YES Blood Gas Inspired Oxygen 60% 100% Physical Exam Vital Signs Vital Signs - First Documented 03/15/18 03/15/18 03/15/18 16:27 16:57 19:20 Temp 98.4 Pulse 116 Resp 18 B/P (MAP) 114/48 (70) Pulse Ox 91 O2 Delivery OxyMask O2 Flow Rate 12.00 FiO2 65 Capillary Refill : Less Than 3 Seconds Height, Weight, BMI Height: 5'3.00" Weight: 196lbs. 6.0oz. 89.640558bf; 33.9 BMI Method:Stated General Appearance: WD/WN, Severe Distress, Other (Sedated and intubated) Eyes: Bilateral Eye Normal Inspection, Bilateral Eye PERRL, Bilateral Eye EOMI HEENT: Other (Intubated) Neck: Normal Inspection Respiratory: Crackles, Decreased Breath Sounds, Rales, Respiratory Distress Cardiovascular: Regular Rate, Rhythm, No Edema, No Gallop, No Murmur, Normal Peripheral Pulses Gastrointestinal: No Organomegaly, No Pulsatile Mass, Non Tender, Soft, Abnormal Bowel Sounds Back: Normal Inspection Extremity: Normal Capillary Refill, Normal Inspection, No Pedal Edema Neurologic/Psychiatric: Other (Sedated and intubated) Skin: Normal Color, Warm/Dry Lymphatic: No Adenopathy A/P-Cardiology Admission Diagnosis Acute respiratory failure Acute exacerbation of COPD Sepsis Acute renal failure Assessment/Plan Acute respiratory failure, bilateral pneumonia, progressed into ventilatory dependent, currently managed by momd teacher. Volume overload, most probably noncardiogenic pulmonary edema with ARDS. Borderline hypotension, I recommend continuing with aggressive IV fluid and monitor her blood pressure. Lactic acidosis, metabolic acidosis, secondary to sepsis, receiving antibiotic and IV fluid. I will continue to delay diuretics for now Oliguria, acute renal failure, probably secondary to sepsis and hypotension. Continue with IV fluid support. Fever, temperature 101, receiving antibiotic, septic workup in progress Acute exacerbation of COPD, history of severe COPD, managed by Dr. Waite Diabetes mellitus, followed and managed by primary care physician Clinical Quality Measures DVT/VTE Risk/Contraindication: Risk Factor Score Per Nursin RFS Level Per Nursing on Admit: 4+=Very High YASMINE LEE MD Mar 16, 2018 15:15
[2018-03-16] MEDS ORDERED: NOREPINEPHRINE 4 MG/4 ML (LEVOPHED) AMP IV ONE (15:29)
[2018-03-16] MEDS ORDERED: NOREPINEPHRINE 4 MG in NS (IVPB) 250 ML IV SCH (15:30)
[2018-03-16] MEDS ORDERED: NS (IVPB) 500 ML ONE (15:30)
[2018-03-16] MEDS ORDERED: DEXMEDETOMIDINE INJECTION 1,000 MCG in NS (IVPB) 250 ML IV SCH (16:30)
--- NOTE | 2018-03-16 16:43 | Diagnostic Imaging Report ---
INDICATION: Central line placement. COMPARISON: Radiographs from the same day. TECHNIQUE: Single frontal radiograph of the chest dated 03/16/2018 at 1622. FINDINGS: Interval placement of a right IJ central venous catheter with distal tip overlying the right upper chest, likely within the superior vena cava. Endotracheal tube and enteric catheter are again identified, appearing stable. Cardiac silhouette is unchanged. Extensive opacities are again identified throughout the right lung with mild left-sided pulmonary opacities also seen. These opacities have slightly improved within the left lung base though likely is not significantly changed within the right lung base given differences in positioning. No significant left pleural effusion. Probable small right pleural effusion. No pneumothorax. Osseous structures are stable. There are surgical clips within the neck. IMPRESSION: Interval placement of a right IJ central venous catheter with the distal tip overlying the expected location of the junction of the jugular vein and superior vena cava. Extensive bilateral pulmonary opacities, right greater than left. This is minimally improved within the left lung base. Dictated by: Dictated on workstation # [id number]
[2018-03-16] MEDS ORDERED: VANCOMYCIN INJECTION 1,000 MG in NS (IVPB) 250 ML IV ONE (17:15)
[2018-03-16] MEDS ORDERED: VANCOMYCIN INJECTION 0.1 MG in NS (IVPB) 250 ML IV SCH (17:15)
[2018-03-16 17:18] LABS: ABG BASE EXCESS -1.4 MMOL/L (-2.5-2.5); ABG OXYGEN SATURATION 98 % (94-100); ABG PCO2 46 MMHG (35-45); ABG PO2 96 MMHG (79-93); ABG TCO2 24.9 MMOL/L (21.0-31.0)
[2018-03-16 17:32] LABS: ABG PH 7.33 (7.37-7.43)
[2018-03-16 17:33] LABS: ALLENS TEST YES-POS
[2018-03-16 17:42] LABS: INSPIRED O2 80%; PATIENT TEMP 99.8; VENTILATOR YES
--- NOTE | 2018-03-16 18:05 | Procedure/Intervention Note ---
Procedure Note Preoperative Date of Service: Mar 16, 2018 Time of Procedure: 16:00 Vital Signs Date Time Temp Pulse Resp B/P (MAP) Pulse Ox O2 Delivery O2 Flow Rate FiO2 03/16/18 17:01 98.8 03/16/18 17:00 95 22 136/84 (101) 100 Mechanical Ventilator 80.00 03/16/18 16:56 80 Indication Pneumonia, COPD, septic shock, ventilator dependent respiratory failure Risk/Time Out Risk and benefits explained to patient or legal guardian, verbal and written consent given. Time out performed, verified correct patient, correct procedure, correct site, and consent documented. Technique Ultrasound-guided right IJ central line placement Prep/Sedation Prepartation: Chlorhexidine, Povidone-iodine Sedation: propofol Procedure-General The procedure, indications, risks, benefits, alternatives were explained to the patient and she shook her head yes knowledge and she understood as well as was giving her consent to proceed. There is also an emergent need for central line placement as her blood pressure was unsafe. Using ultrasound we identified our landmarks structures and identify the large right IJ that was plump and easily compressible using the ultrasound head. We then clean the site with iodine allowed to sit for 5 minutes. We then clean the site using the chlorhexidine prep provided. We then donned sterile gown, gloves , mask and headgear garb as well as everyone else in the room. The patient sedation was turned on propofol until she was comfortable. Hemodynamic monitoring was provided in the ICU. Patient's oxygen sats never fell below 95%. She had no ectopy at any time seen on the telemetry. We then draped her in the usual sterile fashion and placed 2 cc of 1% lidocaine without epinephrine and the skin over the site of the right IJ. Use the ultrasound guided to put a introducer needle into the right IJ which withdrew easily. We then tried passing the guidewire multiple times unsuccessfully after repositioning. Each time there was slow nonpulsatile dark red blood from the needle. We removed the needle from the site flushed it with sterile saline and held pressure for 2 minutes. The central catheter line was flushed with sterile saline and the caps were Put on It in the Usual Fashion. We re-ascertained our site using ultrasound guidance and witnessed the needle going into the right IJ again with good dark red blood return. We then re-tried to introduce the guidewire which went easily the second time down to the usual level and no ectopy was witnessed on telemetry. We then used the 11 blade scalpel supplied in the sterile kit to make a small venus in the skin at the base of the needle and removed the needle while holding the guidewire the entire time and place securely with our hand rested against the patient's jawline. We then placed the dilator catheter over the guidewire and dilated the site and removed the dilator link pressure over the site and then threaded the 16 cm triple lumen central catheter over the guidewire in the usual fashion. We placed the 16 cm central lumen at 13 cm at the skin and stitched in place 3 different times using the supplied sterile stitch. We then cleaned up the site and placed a Biopatch and sterile dressing. Patient tolerated the procedure very well have good vital signs throughout. An x -ray was obtained showing good positioning. The catheter easily flushed and withdrew. We then notified ICU nursing to utilize the triple lumen central catheter. Estimated Blood Loss Bleeding: Minimal Estimated blood loss in mL: 10 Patient tolerated the procedure well and the line flushed easily and was secured and sterilely dressed. NAME: [facility] REC#: [id number] PHYSICIAN: TONEY RHOADES MD CC: CHRISTOPHER ANDERS MD; TONEY RHOADES Page 2 of 2 RADIOLOGY REPORT VIA [facility]. [place], [place] CC: CHRISTOPHER ANDERS MD; TONEY RHOADES Page 1 of 2 RADIOLOGY REPORT NAME: [facility] REC#: [id number] PT STATUS: ADM IN : 1950 PHYSICIAN: TONEY RHOADES MD ADMIT DATE: 03/15/18/ICU Signed Date of Exam: 03/16/18 CHEST 1 VIEW, AP/PA ONLY INDICATION: Central line placement. COMPARISON: Radiographs from the same day. TECHNIQUE: Single frontal radiograph of the chest dated 03/16/2018 at 1622. FINDINGS: Interval placement of a right IJ central venous catheter with distal tip overlying the right upper chest, likely within the superior vena cava. Endotracheal tube and enteric catheter are again identified, appearing stable. Cardiac silhouette is unchanged. Extensive opacities are again identified throughout the right lung with mild left-sided pulmonary opacities also seen. These opacities have slightly improved within the left lung base though likely is not significantly changed within the right lung base given differences in positioning. No significant left pleural effusion. Probable small right pleural effusion. No pneumothorax. Osseous structures are stable. There are surgical clips within the neck. IMPRESSION: Interval placement of a right IJ central venous catheter with the distal tip overlying the expected location of the junction of the jugular vein and superior vena cava. Extensive bilateral pulmonary opacities, right greater than left. This is minimally improved within the left lung base. Dictated by: Dictated on workstation # [id number] Dict: 03/16/18 1631 Trans: 03/16/18 171 Interpreted by: CHRISTOPHER ANDERS MD Electronically signed by: CHRISTOPHER ANDERS MD 03/16/18 171 TONEY RHOADES Mar 16, 2018 18:05
[2018-03-16] MEDS ORDERED: VANCOMYCIN 1000 MG/VIAL ONE (18:28)
[2018-03-16] MEDS: PROPOFOL DRIP (ICU) 100 ML IV SCH ×2 (18:32→23:19)
[2018-03-16] MEDS ORDERED: VANCOMYCIN 500 MG/NS 100 ML IV ONE ×2 (21:15)
[2018-03-17] VITALS (33 sets, daily range): BP systolic 93–140; BP diastolic 44–74
[2018-03-17] MEDS: RT-ALBUTEROL/IPRATROPIUM 3 ML (DUONEB) VIAL INH SCH ×6 (03:02→22:20)
[2018-03-17 03:30] LABS: BASOPHILS % (AUTO) 0 % (0-10); EOSINOPHILS # (AUTO) 0.2 10^3/uL (0.0-0.3); EOSINOPHILS % (AUTO) 1 % (0-10); HEMATOCRIT 33 % (35-52); HEMOGLOBIN 10.7 G/DL (11.5-16.0); LYMPHOCYTES # (AUTO) 0.7 X 10^3 (1.0-4.0); LYMPHOCYTES % (AUTO) 3 % (12-44); MEAN CORPUSCULAR HEMOGLOBIN 32 PG (25-34); MEAN CORPUSCULAR HGB CONC 32 G/DL (32-36); MEAN CORPUSCULAR VOLUME 98 FL (80-99); MEAN PLATELET VOLUME 10.2 FL (7.4-10.4); MONOCYTES # (AUTO) 0.3 X 10^3 (0.0-1.0); MONOCYTES % (AUTO) 1 % (0-12); NEUTROPHILS # (AUTO) 22.2 X 10^3 (1.8-7.8); NEUTROPHILS % (AUTO) 95 % (42-75); PLATELET COUNT 257 10^3/uL (130-400); RED BLOOD COUNT 3.39 10^6/uL (4.35-5.85); RED CELL DISTRIBUTION WIDTH 13.1 % (10.0-14.5); SMEAR SCAN COMMENT YES; WHITE BLOOD COUNT 23.4 10^3/uL (4.3-11.0)
[2018-03-17 03:38] LABS: ABG BASE EXCESS -3.6 MMOL/L (-2.5-2.5); ABG OXYGEN SATURATION 98 % (94-100); ABG PCO2 42 MMHG (35-45); ABG PO2 96 MMHG (79-93); ABG TCO2 22.5 MMOL/L (21.0-31.0)
[2018-03-17 03:41] LABS: ABG PH 7.33 (7.37-7.43); ALLENS TEST POSITIVE; INSPIRED O2 60%; VENTILATOR YES
[2018-03-17 03:50] LABS: BUN/CREATININE RATIO 23; CALCIUM 7.6 MG/DL (8.5-10.1); CARBON DIOXIDE 19 MMOL/L (21-32); CHLORIDE 118 MMOL/L (98-107); CREATININE SERUM 0.79 MG/DL (0.60-1.30); GFR ESTIMATED > 60; GLUCOSE 182 MG/DL (70-105); MAGNESIUM 2.2 MG/DL (1.8-2.4); PHOSPHORUS 1.5 MG/DL (2.3-4.7); POTASSIUM 4.1 MMOL/L (3.6-5.0); SODIUM 146 MMOL/L (135-145)
[2018-03-17] MEDS: NS W/KCL 20 MEQ/L 1,000 ML IV SCH (04:15)
[2018-03-17] MEDS: PROPOFOL DRIP (ICU) 100 ML IV SCH ×5 (04:23→21:33)
--- NOTE | 2018-03-17 06:12 | Pulmonary Progress Note ---
Subjective Time Seen by a Provider: 05:00 Subjective/Events-last exam PT was intubated yesterday. secondary to progressive hypoxia Sepsis Event Evaluation Height, Weight, BMI Height: 5'3.00" Weight: 196lbs. 6.0oz. 89.833270tf; 33.9 BMI Method:Stated Focused Exam Lactate Level 03/16/18 20:20: Lactic Acid Level 2.36*H 03/16/18 22:20: Lactic Acid Level 2.46*H 03/17/18 03:15: Lactic Acid Level 2.13*H Lactic Acid Level Laboratory Tests Test 03/17/18 03:15 Lactic Acid Level 2.13 MMOL/L (0.50-2.00) *H Exam Exam Vital Signs Date Time Temp Pulse Resp B/P (MAP) Pulse Ox O2 Delivery O2 Flow Rate FiO2 03/17/18 04:23 98 110/64 03/17/18 04:00 Mechanical Ventilator 60 03/17/18 04:00 99 109/58 (75) 100 Mechanical Ventilator 60.00 03/17/18 03:02 87 22 100 70 03/17/18 03:00 88 109/58 (75) 100 Mechanical Ventilator 60.00 03/17/18 02:00 92 117/62 (80) 100 Mechanical Ventilator 60.00 03/17/18 01:00 100 121/70 (87) 100 Mechanical Ventilator 60.00 03/17/18 01:00 100 03/17/18 00:42 97 22 100 70 03/17/18 00:00 94 93/44 (60) 100 Mechanical Ventilator 60.00 03/17/18 00:00 Mechanical Ventilator 60 03/16/18 23:52 99.2 03/16/18 23:19 112/56 03/16/18 23:00 101 109/51 (70) 100 Mechanical Ventilator 60.00 03/16/18 22:01 Mechanical Ventilator 60.00 03/16/18 22:00 99 119/70 (86) 100 Mechanical Ventilator 60.00 03/16/18 21:59 99 22 100 70 03/16/18 21:59 Mechanical Ventilator 60.00 03/16/18 21:00 101 119/73 (88) 97 Mechanical Ventilator 70.00 03/16/18 20:10 102 22 96 70 03/16/18 20:00 Mechanical Ventilator 70 03/16/18 20:00 98.1 Mechanical Ventilator 70.00 03/16/18 20:00 103 112/65 (81) 96 Mechanical Ventilator 70.00 03/16/18 19:00 96 22 106/60 (75) 95 Mechanical Ventilator 70.00 03/16/18 19:00 96 03/16/18 18:51 Mechanical Ventilator 70.00 03/16/18 18:51 88 22 98 80 03/16/18 18:35 88 22 98 80 03/16/18 18:32 98.1 03/16/18 18:04 98.1 Mechanical Ventilator 80.00 03/16/18 18:00 87 21 119/71 (87) 97 Mechanical Ventilator 80.00 03/16/18 17:01 98.8 03/16/18 17:00 95 22 136/84 (101) 100 Mechanical Ventilator 80.00 03/16/18 16:56 96 22 100 80 03/16/18 16:44 Mechanical Ventilator 80 03/16/18 16:00 92 22 106/63 (77) 99 Mechanical Ventilator 80.00 03/16/18 15:00 92 22 94/48 (63) 95 Mechanical Ventilator 80.00 03/16/18 14:44 Mechanical Ventilator 80.00 03/16/18 14:39 87 22 99 100 03/16/18 14:00 92 21 92/49 (63) 98 Mechanical Ventilator 100.00 03/16/18 13:54 101.5 03/16/18 13:00 104 03/16/18 13:00 104 21 95/52 (66) 94 Mechanical Ventilator 100.00 03/16/18 12:50 106 22 93 100 03/16/18 12:21 117 20 91 100 03/16/18 12:00 Mechanical Ventilator 80 03/16/18 12:00 116 14 122/64 (83) 92 Mechanical Ventilator 100.00 03/16/18 11:00 113 13 132/77 (95) 90 Mechanical Ventilator 100.00 03/16/18 10:51 117 14 91 100 03/16/18 10:25 110 22 89 60.00 03/16/18 10:00 110 22 103/56 (72) 96 Mechanical Ventilator 100.00 03/16/18 09:00 116 27 107/50 (69) 97 Vapotherm 65.00 20.00 03/16/18 08:45 122 21 96 60.00 03/16/18 08:32 NIV Bilevel 65 03/16/18 08:31 101.5 NIV Bilevel 03/16/18 08:00 125 20 120/81 (94) 99 Vapotherm 65.00 20.00 03/16/18 07:34 101.5 03/16/18 07:08 101.5 03/16/18 07:05 129 21 97 60.00 03/16/18 07:00 131 25 121/87 (98) 84 Vapotherm 65.00 20.00 03/16/18 07:00 127 03/16/18 06:54 95 NIV Bilevel 60 03/16/18 06:43 95 Vapotherm 20.00 65 I & O 03/17/18 07:00 Intake Total 550 ml Output Total 635 ml Balance -85 ml Height & Weight Height: 5'3.00" Weight: 196lbs. 6.0oz. 89.043885na; 33.9 BMI Method:Stated General Appearance: WD/WN, Severe Distress, Other (Sedated and intubated) HEENT: Other (Intubated) Neck: Normal Inspection Respiratory: Crackles, Decreased Breath Sounds, Rales, Respiratory Distress Cardiovascular: Regular Rate, Rhythm, No Edema, No Gallop, No Murmur, Normal Peripheral Pulses Capillary Refill: Less Than 3 Seconds Gastrointestinal: normal bowel sounds, non tender, soft, no organomegaly Extremity: Normal Capillary Refill, Normal Inspection, No Pedal Edema Neurologic/Psychiatric: Other (Sedated and intubated) Skin: Normal Color, Warm/Dry Lymphatic: No Adenopathy Results Lab Laboratory Tests 03/15/18 16:32 03/16/18 04:00 03/17/18 03:15 Assessment/Plan Assessment/Plan Acute on chronic respiratory failure with hypoxia with ARDS -Pt was intubated yesterday -CT scan reviewed shows condense pneumoina RLL -Will plan for bronchoscopy in AM r/o aspiration -Decrease Vt to 450 and increase RR to 27 -Start TF Pneumonia with severe sepsis secondary to pneumonia and UTI -Continue IVF for now. -Continue Zosyn, vancomycin -Await cao cultures -MRSA swab -influenza is negative but secondary to patient's high fever will go ahead and treat with Tamiflu Hypernatremia with lactic acidosis -CHange NS to LR -Add 500 cc of free water to OG Q 6 Severe COPD with AE -Decrease Solumedrol to 40 IV Q6 -SVNs Q4 -Oxygen Hypernatremia -Change to 1/2 NS Severe Metabolic lactic acidosis -Give 2 amps of bicarb -Continue to monitor Tobacco use -Education Urine is very concentrated 35cc/hr currently Discussed with RN and RT extensively all labs and radiology reviewed. Total ICU time spent with patient is 60min. MICHELLE MEDINA DO Mar 17, 2018 06:12
[2018-03-17] MEDS: POTASSIUM CL 10MEQ/50ML IVPB 50 ML IV SCH (06:24)
[2018-03-17] MEDS: KCL 20 MEQ TAB (K-DUR) PO SCH (06:24)
[2018-03-17] MEDS: ENOXAPARIN 40 MG/0.4 ML (LOVENOX) SYR SC SCH (06:24)
[2018-03-17] MEDS: methylPREDNISolone 125 MG (Solu-MEDROL) VIAL IV SCH ×3 (06:24→17:37)
[2018-03-17] MEDS: inSUlin ASPART (NovoLOG) 1 UNIT/0.01 ML (CHARGE PER UNIT) SQ SCH ×3 (06:24→17:37)
[2018-03-17] MEDS: MAGNESIUM 1 GM/100 ML IVPB 100 ML IV SCH (06:24)
[2018-03-17] MEDS ORDERED: LACTATED RINGERS 1,000 ML IV ONE (06:28)
[2018-03-17] MEDS: RT-ADVAIR HFA 115/21 MCG PER PUFF IH SCH ×2 (06:34→18:32)
[2018-03-17] MEDS: PIPERACILLIN/TAZO 4.5 GM/NS 100 ML IV SCH ×4 (06:35→15:15)
[2018-03-17 07:29] LABS: ABG BASE EXCESS -3.6 MMOL/L (-2.5-2.5); ABG OXYGEN SATURATION 96 % (94-100); ABG PCO2 41 MMHG (35-45); ABG PO2 76 MMHG (79-93); ABG TCO2 22.6 MMOL/L (21.0-31.0)
[2018-03-17 07:33] LABS: ABG PH 7.33 (7.37-7.43)
[2018-03-17] MEDS: LEVOTHYROXINE 112 MCG (LEVOTHROID) TAB PO SCH (07:33)
[2018-03-17 07:34] LABS: ALLENS TEST YES-POS; PATIENT TEMP 98.1; VENTILATOR YES
--- NOTE | 2018-03-17 07:50 | Diagnostic Imaging Report ---
Portable erect AP chest at 0332. Indication: Respiratory distress. The heart size is within normal limits and stable when compared to 03/16/2018. As noted on the prior exam, there are dense alveolar/interstitial pulmonary infiltrates involving the right midlung and right lung base. This appearance does suggest pneumonia/atelectasis. There may also be some fluid in the right lung base. The patchy alveolar/interstitial infiltrates in the left midlung periphery and in the left lower lobe seen previously are unchanged. The mediastinum is not widened. The osseous structures are intact. The supportive tubes and lines remain in good position. Impression: Stable chest. There is persistent involvement of much of the right lung by pneumonia/atelectasis and fluid. A followup study would be recommended for continued evaluation. Dictated by: Dictated on workstation # [id number]
[2018-03-17] MEDS: SODIUM PHOSPHATE INJ 30 MM in NS (IVPB) 250 ML IV NR ×2 (07:51→07:54)
[2018-03-17] MEDS: LACTATED RINGERS 1,000 ML IV SCH ×4 (07:54→21:31)
--- NOTE | 2018-03-17 08:03 | Cardiology Progress Note ---
Subjective Date Seen by Provider: Mar 17, 2018 Time Seen by Provider: 08:00 Subjective/Events-last exam Patient is sedated and intubated, blood pressure is better, urine output is slightly better. Review of Systems General: Other (Unable to provide review of system due to current condition) Focused Exam Lactate Level 03/16/18 22:20: Lactic Acid Level 2.46*H 03/17/18 03:15: Lactic Acid Level 2.13*H 03/17/18 07:23: Lactic Acid Level 1.61 Lactic Acid Level Laboratory Tests Test 03/17/18 07:23 Lactic Acid Level 1.61 MMOL/L (0.50-2.00) Objective-Cardiology Exam Last Set of Vital Signs Vital Signs 03/16/18 03/17/18 03/17/18 03/17/18 23:52 06:00 06:35 06:46 Temp 99.2 Pulse 90 Resp 27 B/P (MAP) 118/67 (84) Pulse Ox 95 O2 Delivery NIV Bilevel O2 Flow Rate 60.00 FiO2 100 Capillary Refill : Less Than 3 Seconds I&O Intake and Output 03/17/18 00:00 Intake Total 2450 ml Output Total 755 ml Balance 1695 ml Intake Oral 0 ml IV Total 2450 ml Output Urine Total 755 ml General: Severe Distress, Other (Sedated and intubated) HEENT: Atraumatic, PERRLA Neck: Supple, No JVD, No Thyromegaly Lungs: Other (Bilateral rhonchi) Heart: Regular Rate, Normal S1, Normal S2, No Murmurs Abdomen: Soft, No Hepatosplenomegaly, No Masses, Other (Diminished bowel sounds ) Extremities: Normal Pulses, No Tenderness/Swelling Skin: No Rashes, No Breakdown, No Significant Lesion Neuro: Other (Sedated and intubated) Psych/Mental Status: Other (Sedated and intubated) Results Lab Laboratory Tests 03/17/18 03:15 A/P-Cardiology Admission Diagnosis Acute respiratory failure Acute exacerbation of COPD Sepsis Acute renal failure Assessment/Plan Acute respiratory failure, bilateral pneumonia, progressed into ventilatory dependent, receiving antibiotics. Continue to monitor. Pulmonary edema with ARDS. Borderline hypotension, normal echocardiogram with normal LV function, normal pulmonary artery pressure. Continue with aggressive IV fluid hydration and antibiotic at this time Lactic acidosis, metabolic acidosis, secondary to sepsis, receiving antibiotic and IV fluid, continue with IV fluid. Oliguria, acute renal failure, probably secondary to sepsis and hypotension. Continue with IV fluid support. Acute exacerbation of COPD, history of severe COPD, managed by Dr. Waite Diabetes mellitus, followed and managed by primary care physician Clinical Quality Measures DVT/VTE Risk/Contraindication: Risk Factor Score Per Nursin RFS Level Per Nursing on Admit: 4+=Very High YASMINE LEE MD Mar 17, 2018 08:03
[2018-03-17] MEDS: OSELTAMIVIR 75 MG (TAMIFLU) CAPSULE PO SCH ×2 (08:10→21:23)
[2018-03-17] MEDS: PANTOPRAZOLE 40 MG (PROTONIX) VIAL IV SCH (08:10)
--- NOTE | 2018-03-17 11:27 | Progress Note-Hospitalist ---
Subjective HPI/CC On Admission Date Seen by Provider: Mar 17, 2018 Time Seen by Provider: 11:00 CC: Respiratory failure due to bilateral pneumonia HPI: This is a 67-year-old white female clinic patient of Dr. PEREZ ww/h/o tobacco use with severe COPD with exacerbations the past known to Dr. Waite pulmonology clinic who remains on oxygen presented to the ER with cough shortness of breath found to have bilateral pneumonia with severe sepsis with tachycardia and acute renal failure with diabetes mellitus out of control. Patient was placed in the ICU empiric antibiotic coverage initiated and pulmonology consultation initiated. Patient was doing well until this morning after 5 L of fluid under severe sepsis protocol and progressed to acute respiratory failure and required intubation. Arterial line placement as been unsuccessful. Urinary output has decreased so will initiate cardiology consultation for possible volume overload may need Lasix to initiate urinary output. Overall patient has multisystem organ failure now respiratory failure intubated and completely supported but prognosis is very guarded. Subjective/Events-last exam Remains intubated Updated daughter High risk for vent dependency ARDS requiring low tidal volume and PEEP 14 Levophed low dose due to Diprivan and PEEP effect Sedation tolerated Focused Exam Lactate Level 03/16/18 22:20: Lactic Acid Level 2.46*H 03/17/18 03:15: Lactic Acid Level 2.13*H 03/17/18 07:23: Lactic Acid Level 1.61 Objective Exam Vital Signs Vital Signs Date Time Temp Pulse Resp B/P (MAP) Pulse Ox O2 Delivery O2 Flow Rate FiO2 03/17/18 11:00 101 115/61 (79) 100 Mechanical Ventilator 60.00 03/17/18 10:18 27 55 03/17/18 08:35 98.1 Capillary Refill : Less Than 3 Seconds General Appearance: No Apparent Distress, WD/WN, Obese Respiratory: Chest Non Tender, No Accessory Muscle Use, No Respiratory Distress , Decreased Breath Sounds Cardiovascular: Regular Rate, Rhythm, No Edema, No Gallop, No JVD, No Murmur, Normal Peripheral Pulses Results/Procedures Lab Laboratory Tests 03/17/18 03:15 Patient resulted labs reviewed. Assessment/Plan Assessment and Plan Assess & Plan/Chief Complaint Assessment: Ventilator-dependent respiratory failure vent day # 2 Bilateral pneumonia ARDS Pulmonary edema Previous smoker quit 2 years ago Severe COPD oxygen dependent 27/11 Leukocytosis Plan: Maintain intubation ARDS protocol Antibiotics Monitor closely Critical Care Critical Care: Critically Ill Patient Diagnosis/Problems Diagnosis/Problems (1) ARDS (adult respiratory distress syndrome) Status: Acute (2) Bilateral pneumonia Status: Acute Qualifiers: Pneumonia type: due to unspecified organism Lung location: lower lobe of lung Qualified Codes: J18.1 - Lobar pneumonia, unspecified organism (3) Multisystem organ failure Status: Acute (4) Respiratory failure Status: Acute Qualifiers: Chronicity: acute on chronic Respiratory failure complication: hypoxia and hypercapnia Qualified Codes: J96.21 - Acute and chronic respiratory failure with hypoxia; J96.22 - Acute and chronic respiratory failure with hypercapnia (5) Airway intubation performed without difficulty Status: Acute (6) Metabolic acidosis Status: Acute (7) Fever Status: Acute Qualifiers: Fever type: unspecified Qualified Codes: R50.9 - Fever, unspecified (8) Pulmonary edema Status: Acute Qualifiers: Chronicity: acute Qualified Codes: J81.0 - Acute pulmonary edema (9) Volume overload Status: Acute Qualifiers: Hypervolemia type: unspecified Qualified Codes: E87.70 - Fluid overload, unspecified (10) Oliguria Status: Acute (11) Leukocytosis Status: Acute Qualifiers: Leukocytosis type: leukemoid reaction Qualified Codes: D72.823 - Leukemoid reaction (12) Acute renal failure Status: Resolved Qualifiers: Acute renal failure type: unspecified Qualified Codes: N17.9 - Acute kidney failure, unspecified (13) Diabetes mellitus type 2, uncontrolled Status: Acute Qualifiers: Glycemic state: with hyperglycemia Qualified Codes: E11.65 - Type 2 diabetes mellitus with hyperglycemia (14) COPD exacerbation Status: Acute (15) Hypoxia Status: Acute Clinical Quality Measures DVT/VTE Risk/Contraindication: Risk Factor Score Per Nursin RFS Level Per Nursing on Admit: 4+=Very High JUN LOUIS DO Mar 17, 2018 11:27
[2018-03-17] MEDS: VANCOMYCIN INJECTION 1,500 MG in NS IV 500 ML 500 ML IV SCH (17:07)
[2018-03-17] MEDS: DEXMEDETOMIDINE INJECTION 1,000 MCG in NS (IVPB) 240 ML IV SCH (20:49)
[2018-03-18] VITALS (36 sets, daily range): BP systolic 123–171; BP diastolic 56–100
[2018-03-18] MEDS: PIPERACILLIN/TAZO 4.5 GM/NS 100 ML IV SCH ×6 (00:10→14:46)
[2018-03-18] MEDS: methylPREDNISolone 125 MG (Solu-MEDROL) VIAL IV SCH ×2 (00:14→05:41)
[2018-03-18] MEDS: inSUlin ASPART (NovoLOG) 1 UNIT/0.01 ML (CHARGE PER UNIT) SQ SCH ×4 (00:15→17:18)
[2018-03-18] MEDS: LACTATED RINGERS 1,000 ML IV SCH ×2 (01:32→05:37)
[2018-03-18] MEDS: PROPOFOL DRIP (ICU) 100 ML IV SCH ×6 (02:12→22:53)
[2018-03-18] MEDS: RT-ALBUTEROL/IPRATROPIUM 3 ML (DUONEB) VIAL INH SCH ×6 (03:00→22:30)
[2018-03-18 03:17] LABS: ABG BASE EXCESS -3.2 MMOL/L (-2.5-2.5); ABG OXYGEN SATURATION 96 % (94-100); ABG PCO2 37 MMHG (35-45); ABG PH 7.37 (7.37-7.43); ABG PO2 77 MMHG (79-93); ABG TCO2 22.2 MMOL/L (21.0-31.0)
[2018-03-18 03:18] LABS: BASOPHILS # (AUTO) 0.1 10^3/uL (0.0-0.1); BASOPHILS % (AUTO) 0 % (0-10); EOSINOPHILS % (AUTO) 0 % (0-10); HEMATOCRIT 33 % (35-52); HEMOGLOBIN 10.8 G/DL (11.5-16.0); LYMPHOCYTES # (AUTO) 0.8 X 10^3 (1.0-4.0); LYMPHOCYTES % (AUTO) 3 % (12-44); MEAN CORPUSCULAR HEMOGLOBIN 32 PG (25-34); MEAN CORPUSCULAR HGB CONC 33 G/DL (32-36); MEAN CORPUSCULAR VOLUME 97 FL (80-99); MEAN PLATELET VOLUME 10.1 FL (7.4-10.4); MONOCYTES # (AUTO) 0.9 X 10^3 (0.0-1.0); MONOCYTES % (AUTO) 3 % (0-12); NEUTROPHILS # (AUTO) 30.8 X 10^3 (1.8-7.8); NEUTROPHILS % (AUTO) 95 % (42-75); PLATELET COUNT 256 10^3/uL (130-400); RED BLOOD COUNT 3.38 10^6/uL (4.35-5.85); RED CELL DISTRIBUTION WIDTH 13.3 % (10.0-14.5)
[2018-03-18 03:20] LABS: ALLENS TEST POSITIVE; PATIENT TEMP 99.3; VENTILATOR YES
[2018-03-18 03:28] LABS: WHITE BLOOD COUNT 32.6 10^3/uL (4.3-11.0)
[2018-03-18 03:41] LABS: BUN/CREATININE RATIO 24; CARBON DIOXIDE 18 MMOL/L (21-32); CHLORIDE 114 MMOL/L (98-107); CREATININE SERUM 0.79 MG/DL (0.60-1.30); GFR ESTIMATED > 60; GLUCOSE 182 MG/DL (70-105); MAGNESIUM 1.8 MG/DL (1.8-2.4); PHOSPHORUS 2.2 MG/DL (2.3-4.7); POTASSIUM 3.7 MMOL/L (3.6-5.0); SODIUM 144 MMOL/L (135-145)
[2018-03-18 04:20] LABS: LYMPHOCYTES % (MANUAL) 4 %; METAMYELOCYTES % 1 %; MONOCYTES % (MANUAL) 3 %; NEUTROPHILS % (MANUAL) 92 %; TOXIC GRANULATION/VACUOLAZATIO 4+
[2018-03-18] MEDS: POTASSIUM CL 10MEQ/50ML IVPB 50 ML IV SCH (05:37)
[2018-03-18] MEDS: MAGNESIUM 1 GM/100 ML IVPB 100 ML IV SCH (05:38)
[2018-03-18] MEDS: KCL 20 MEQ TAB (K-DUR) PO SCH (05:38)
[2018-03-18] MEDS: ENOXAPARIN 40 MG/0.4 ML (LOVENOX) SYR SC SCH (05:42)
[2018-03-18] MEDS ORDERED: POTASSIUM PHOSPHATE INJ 30 MM in NS (IVPB) 250 ML IV ONE (06:00)
[2018-03-18] MEDS ORDERED: CALCIUM GLUCONATE 10% INJ 4.65 MEQ in NS (IVPB) 50 ML IV ONE (06:00)
[2018-03-18] MEDS ORDERED: FUROSEMIDE 40 MG/4 ML INJ (LASIX) IVP ONE (06:00)
[2018-03-18] MEDS ORDERED: FUROSEMIDE 40 MG/4 ML INJ (LASIX) ONE (06:02)
--- NOTE | 2018-03-18 06:08 | Pulmonary Progress Note ---
Subjective Time Seen by a Provider: 06:08 Subjective/Events-last exam PT sedated on vent. Daughter at bedside. All questions answered. Sepsis Event Evaluation Height, Weight, BMI Height: 5'3.00" Weight: 200lbs. 5.0oz. 90.603184up; 33.9 BMI Method:Stated Focused Exam Lactate Level 03/16/18 22:20: Lactic Acid Level 2.46*H 03/17/18 03:15: Lactic Acid Level 2.13*H 03/17/18 07:23: Lactic Acid Level 1.61 Exam Exam Vital Signs Date Time Temp Pulse Resp B/P (MAP) Pulse Ox O2 Delivery O2 Flow Rate FiO2 03/18/18 05:00 104 152/79 (103) 95 Mechanical Ventilator 55.00 03/18/18 04:27 103 28 95 55 03/18/18 04:00 103 146/82 (103) 95 Mechanical Ventilator 55.00 03/18/18 04:00 Mechanical Ventilator 55 03/18/18 03:55 99.3 03/18/18 03:00 85 28 96 55 03/18/18 03:00 84 140/79 (99) 96 Mechanical Ventilator 55.00 03/18/18 02:12 93 03/18/18 02:00 95 138/80 (99) 95 Mechanical Ventilator 55.00 03/18/18 01:00 91 137/78 (97) 95 Mechanical Ventilator 55.00 03/18/18 01:00 92 03/18/18 00:15 91 29 95 55 03/18/18 00:00 Mechanical Ventilator 55 03/18/18 00:00 90 132/77 (95) 95 Mechanical Ventilator 55.00 03/17/18 23:59 97.2 03/17/18 23:00 91 129/72 (91) 95 Mechanical Ventilator 55.00 03/17/18 22:22 87 121/70 (87) 95 Mechanical Ventilator 55.00 03/17/18 22:20 87 27 96 55 03/17/18 21:33 88 03/17/18 21:00 89 107/60 (76) 95 Mechanical Ventilator 55.00 03/17/18 20:00 97.1 Mechanical Ventilator 55.00 03/17/18 20:00 93 101/56 (71) 100 Mechanical Ventilator 55.00 03/17/18 20:00 Mechanical Ventilator 55 03/17/18 19:47 97 Mechanical Ventilator 55 03/17/18 19:43 95 03/17/18 19:00 96 101/66 (78) 97 Mechanical Ventilator 55.00 03/17/18 18:32 92 27 97 55 03/17/18 18:00 93 105/59 (74) 97 Mechanical Ventilator 55.00 03/17/18 17:00 87 106/62 (77) 97 Mechanical Ventilator 55.00 03/17/18 16:33 Mechanical Ventilator 55 03/17/18 16:30 92 27 94 55 03/17/18 16:22 97.3 03/17/18 16:00 93 114/68 (83) 94 Mechanical Ventilator 55.00 03/17/18 15:00 95 109/63 (78) 96 Mechanical Ventilator 55.00 03/17/18 14:40 93 27 95 55 03/17/18 14:00 99 117/69 (85) 100 Mechanical Ventilator 55.00 03/17/18 13:01 98.6 Mechanical Ventilator 55.00 03/17/18 13:00 101 114/64 (81) 98 Mechanical Ventilator 55.00 03/17/18 13:00 103 03/17/18 12:59 103 29 97 55 03/17/18 12:47 98.6 03/17/18 12:03 Mechanical Ventilator 55 03/17/18 12:00 94 102/51 (68) 92 Mechanical Ventilator 55.00 03/17/18 11:00 101 115/61 (79) 100 Mechanical Ventilator 55.00 03/17/18 10:18 99 27 100 55 03/17/18 10:09 93 118/67 (84) 100 Mechanical Ventilator 60.00 03/17/18 09:01 102 27 100 55 03/17/18 09:00 102 23 104/58 (73) 100 Mechanical Ventilator 55.00 03/17/18 08:35 98.1 03/17/18 08:00 102 27 111/59 (76) 100 Mechanical Ventilator 55.00 03/17/18 08:00 Mechanical Ventilator 55 03/17/18 07:00 98 03/17/18 07:00 98.1 Mechanical Ventilator 55.00 03/17/18 06:46 95 NIV Bilevel 100 03/17/18 06:35 90 27 100 55 03/17/18 06:06 55 I & O 03/18/18 07:00 Intake Total 4175 ml Output Total 520 ml Balance 3655 ml Height & Weight Height: 5'3.00" Weight: 200lbs. 5.0oz. 90.183326yt; 33.9 BMI Method:Stated General Appearance: No Apparent Distress, WD/WN, Obese, Other (pt sedated on vent) HEENT: Other (Intubated) Neck: Normal Inspection Respiratory: Chest Non Tender, No Accessory Muscle Use, No Respiratory Distress , Decreased Breath Sounds Cardiovascular: Regular Rate, Rhythm, No Edema, No Gallop, No JVD, No Murmur, Normal Peripheral Pulses Capillary Refill: Less Than 3 Seconds Gastrointestinal: normal bowel sounds, non tender, soft, no organomegaly Extremity: Normal Capillary Refill, Normal Inspection, No Pedal Edema Neurologic/Psychiatric: Other (Sedated and intubated) Skin: Normal Color, Warm/Dry Lymphatic: No Adenopathy Results Lab Laboratory Tests 03/17/18 03:15 03/18/18 03:10 Assessment/Plan Assessment/Plan Acute on chronic respiratory failure with hypoxia with ARDS -Continue vent support - bronchoscopy this AM - TF Pneumonia with severe sepsis secondary to pneumonia and UTI -Decrease IVF to KVO -Give lasix 40mg IV X 1 -Continue Zosyn, vancomycin -Await cao cultures -influenza is negative but secondary to patient's high fever will go ahead and treat with Tamiflu Hypernatremia with lactic acidosis -CHange NS to LR -Add 500 cc of free water to OG Q 6 Severe COPD with AE -Decrease Solumedrol to 40 IV Q12 -SVNs Q4 -Oxygen Hypernatremia -decrease LR to KVO Severe Metabolic lactic acidosis - improved -Continue to monitor Tobacco use -Education Discussed with daughter, RN and RT extensively all labs and radiology reviewed. Total ICU time spent with patient is 30min not including bronchoscopy. MICHELLE MEDINA DO Mar 18, 2018 06:08
[2018-03-18] MEDS ORDERED: MIDAZOLAM 5 MG/5 ML (VERSED) VIAL ONE (06:13)
--- NOTE | 2018-03-18 06:38 | Pulmonary Procedures ---
Pulmonary Procedures Date of Procedure Date of Service: Mar 18, 2018 Bronch Bronchoscopy with bronchoalveolar lavage (BAL) RLL, and bilateral washes. Thick sputum plugs lavaged aggressively and suction used to clear mucous plugs. Preop DX pneumonia Postop DX: same with copious thick yellow mucous plugging. Complications: none After informed consent obtained and formal time out pt was sedated using Diprivan and Versed. Bronchoscope was advanced through the ET tube. 1% lidocaine was used to anesthetize lola, and left/right main stem bronchus. An anatomical tour was undertaken down to the segmental bronchi bilaterally. No endobronchial lesions noted. PT had thick copious amounts of yellow sputum that took several passes to lavage out. From the RLL a bronchoalveolar lavage (BAL) , transbronchial washes and, brushes were obtained. Pt tolerated procedure well. No complications noted. Stat CXR is pending. MICHELLE MEDINA DO Mar 18, 2018 06:38
[2018-03-18] MEDS: RT-ADVAIR HFA 115/21 MCG PER PUFF IH SCH ×2 (06:57→18:08)
--- NOTE | 2018-03-18 07:27 | Diagnostic Imaging Report ---
INDICATION: Post bronch. Compared 03/18 FINDINGS: ET tube mid trachea. Right IJ at the SVC. An OG catheter goes beneath the [id number]. There is bilateral infiltrates greater right while substantial having improved in the interim. IMPRESSION: There has been at least some improvements in bilateral infiltrates greater right with support apparatus projecting in good alignment. Dictated by: Dictated on workstation # [id number]
[2018-03-18] MEDS: OSELTAMIVIR 75 MG (TAMIFLU) CAPSULE PO SCH ×2 (07:37→20:09)
[2018-03-18] MEDS: LEVOTHYROXINE 112 MCG (LEVOTHROID) TAB PO SCH (07:37)
[2018-03-18] MEDS: PANTOPRAZOLE 40 MG (PROTONIX) VIAL IV SCH (07:37)
--- NOTE | 2018-03-18 08:10 | Diagnostic Imaging Report ---
INDICATION: Ventilator support. TIME OF EXAM: 03:37 a.m. Correlation is made with prior study one day earlier. Endotracheal tube, nasogastric tube and right IJ line remain in place. Right-sided infiltrates are similar to yesterday. There is some mild left perihilar infiltrate as well. No pneumothorax is seen. IMPRESSION: No significant change in the pulmonary infiltrates when compared to exam one day earlier. Dictated by: Dictated on workstation # [id number]
[2018-03-18] MEDS ORDERED: LIDOCAINE PF 1% 2 ML AMP INJ ONE (08:42)
[2018-03-18 08:50] LABS: BF OTHER CELLS 12 %; BODY FLUID APPEARENCE MKD CLDY; BODY FLUID COLOR SL XANTHO; LYMPHOCYTES,BODY FLUID 14 %
[2018-03-18 08:51] LABS: BODY FLUID SOURCE R BRONCH WASH
--- NOTE | 2018-03-18 08:51 | Cardiology Progress Note ---
Subjective Date Seen by Provider: Mar 18, 2018 Time Seen by Provider: 08:46 Subjective/Events-last exam Patient is sedated and intubated, had bronchoscopy done earlier Review of Systems General: Other (Unable to provide review of systems due to her current condition) Focused Exam Lactate Level 03/16/18 22:20: Lactic Acid Level 2.46*H 03/17/18 03:15: Lactic Acid Level 2.13*H 03/17/18 07:23: Lactic Acid Level 1.61 Objective-Cardiology Exam Last Set of Vital Signs Vital Signs 03/18/18 03/18/18 03/18/18 03/18/18 06:00 06:57 08:00 08:05 Temp 99.0 Pulse 117 Resp 36 B/P (MAP) 154/84 (107) Pulse Ox 93 O2 Delivery Mechanical Ventilator O2 Flow Rate 55.00 FiO2 60 Capillary Refill : Less Than 3 Seconds I&O Intake and Output 03/18/18 00:00 Intake Total 4375 ml Output Total 735 ml Balance 3640 ml Intake Oral 0 ml IV Total 2710 ml Tube Feeding 165 ml Other 1500 ml Output Urine Total 735 ml General: Severe Distress, Other (Sedated and intubated) HEENT: Atraumatic, PERRLA Neck: Supple, No JVD, No Thyromegaly Lungs: Other (Bilateral rhonchi) Heart: Regular Rate, Normal S1, Normal S2, No Murmurs Abdomen: Soft, No Hepatosplenomegaly, No Masses, Other (Diminished bowel sounds ) Extremities: Normal Pulses, No Tenderness/Swelling, Other (Mild edema) Skin: No Rashes, No Breakdown, No Significant Lesion Neuro: Other (Sedated and intubated) Psych/Mental Status: Other (Sedated and intubated) Results Lab Laboratory Tests 03/18/18 03:10 A/P-Cardiology Admission Diagnosis Acute respiratory failure Acute exacerbation of COPD Sepsis Acute renal failure Assessment/Plan Acute respiratory failure, bilateral pneumonia, ventilator dependent, underwent bronchoscopy today. ARDS. Pulmonary edema with ARDS, blood pressure is better today, given Lasix today with good response Lactic acidosis, metabolic acidosis, improving continue to monitor Leukocytosis, significantly worse today. I'll continue antibiotic and evaluate stool for C. difficile Oliguria, acute renal failure, probably secondary to sepsis and hypotension. Continue with IV fluid support. Acute exacerbation of COPD, history of severe COPD, managed by Dr. Waite Diabetes mellitus, followed and managed by primary care physician Clinical Quality Measures DVT/VTE Risk/Contraindication: Risk Factor Score Per Nursin RFS Level Per Nursing on Admit: 4+=Very High YASMINE LEE MD Mar 18, 2018 08:51
[2018-03-18] MEDS ORDERED: LEVO112T55 PO (09:23)
[2018-03-18] MEDS ORDERED: RANI150T11 PO (09:23)
[2018-03-18] MEDS ORDERED: ASPI-983 PO (09:27)
[2018-03-18] MEDS: DEXMEDETOMIDINE INJECTION 1,000 MCG in NS (IVPB) 240 ML IV SCH ×2 (12:00→23:56)
--- NOTE | 2018-03-18 12:43 | Progress Note (SOAP) ---
Subjective Date Seen by a Provider: Mar 18, 2018 Time Seen by a Provider: 12:39 Subjective/Events-last exam Fwup acute on chronic respiratory failure, Bilateral pneumonia and UTI with sepsis, Hypernatremia, Anasarca, COPD with AE. Sedated on ventilator. Daughter at bedside. Focused Exam Lactate Level 03/16/18 22:20: Lactic Acid Level 2.46*H 03/17/18 03:15: Lactic Acid Level 2.13*H 03/17/18 07:23: Lactic Acid Level 1.61 Objective Exam Vital Signs Date Time Temp Pulse Resp B/P (MAP) Pulse Ox O2 Delivery O2 Flow Rate FiO2 03/18/18 11:16 97.6 03/18/18 11:16 Mechanical Ventilator 60 03/18/18 11:04 115 139/62 03/18/18 11:00 115 23 132/74 (93) 97 Mechanical Ventilator 55.00 03/18/18 10:08 120 30 97 60 03/18/18 10:00 120 22 135/74 (94) 96 Mechanical Ventilator 55.00 03/18/18 09:00 116 22 130/79 (96) 94 Mechanical Ventilator 55.00 03/18/18 08:05 117 36 93 60 03/18/18 08:00 116 23 130/66 (87) 95 Mechanical Ventilator 55.00 03/18/18 08:00 99.0 03/18/18 08:00 Mechanical Ventilator 60 03/18/18 07:00 115 03/18/18 07:00 115 30 123/56 (78) 91 Mechanical Ventilator 55.00 03/18/18 06:57 91 Mechanical Ventilator 60 03/18/18 06:45 114 27 91 60 03/18/18 06:20 99 03/18/18 06:18 60 03/18/18 06:00 104 154/84 (107) 97 Mechanical Ventilator 55.00 03/18/18 05:00 104 152/79 (103) 95 Mechanical Ventilator 55.00 03/18/18 04:27 103 28 95 55 03/18/18 04:00 103 146/82 (103) 95 Mechanical Ventilator 55.00 03/18/18 04:00 Mechanical Ventilator 55 03/18/18 03:55 99.3 03/18/18 03:00 85 28 96 55 03/18/18 03:00 84 140/79 (99) 96 Mechanical Ventilator 55.00 03/18/18 02:12 93 03/18/18 02:00 95 138/80 (99) 95 Mechanical Ventilator 55.00 03/18/18 01:00 91 137/78 (97) 95 Mechanical Ventilator 55.00 03/18/18 01:00 92 03/18/18 00:15 91 29 95 55 03/18/18 00:00 Mechanical Ventilator 55 03/18/18 00:00 90 132/77 (95) 95 Mechanical Ventilator 55.00 03/17/18 23:59 97.2 03/17/18 23:00 91 129/72 (91) 95 Mechanical Ventilator 55.00 03/17/18 22:22 87 121/70 (87) 95 Mechanical Ventilator 55.00 03/17/18 22:20 87 27 96 55 03/17/18 21:33 88 03/17/18 21:00 89 107/60 (76) 95 Mechanical Ventilator 55.00 03/17/18 20:00 97.1 Mechanical Ventilator 55.00 03/17/18 20:00 93 101/56 (71) 100 Mechanical Ventilator 55.00 03/17/18 20:00 Mechanical Ventilator 55 03/17/18 19:47 97 Mechanical Ventilator 55 03/17/18 19:43 95 03/17/18 19:00 96 101/66 (78) 97 Mechanical Ventilator 55.00 03/17/18 18:32 92 27 97 55 03/17/18 18:00 93 105/59 (74) 97 Mechanical Ventilator 55.00 03/17/18 17:00 87 106/62 (77) 97 Mechanical Ventilator 55.00 03/17/18 16:33 Mechanical Ventilator 55 03/17/18 16:30 92 27 94 55 03/17/18 16:22 97.3 03/17/18 16:00 93 114/68 (83) 94 Mechanical Ventilator 55.00 03/17/18 15:00 95 109/63 (78) 96 Mechanical Ventilator 55.00 03/17/18 14:40 93 27 95 55 03/17/18 14:00 99 117/69 (85) 100 Mechanical Ventilator 55.00 03/17/18 13:01 98.6 Mechanical Ventilator 55.00 03/17/18 13:00 101 114/64 (81) 98 Mechanical Ventilator 55.00 03/17/18 13:00 103 03/17/18 12:59 103 29 97 55 03/17/18 12:47 98.6 I & O 03/18/18 07:00 Intake Total 4175 ml Output Total 620 ml Balance 3555 ml Capillary Refill : Less Than 3 Seconds General Appearance: Other (sedated on vent) Neck: Supple Respiratory: Lungs Clear Cardiovascular: Regular Rate, Rhythm Gastrointestinal: normal bowel sounds, soft Extremity: Pedal Edema Neurologic/Psychiatric: Other (sedated) Skin: Warm/Dry Results Lab Laboratory Tests 03/17/18 17:36: Glucometer 165H 03/18/18 00:15: Glucometer 167H 03/18/18 03:10: White Blood Count 32.6*H, Red Blood Count 3.38L, Hemoglobin 10.8L, Hematocrit 33L, Mean Corpuscular Volume 97, Mean Corpuscular Hemoglobin 32, Mean Corpuscular Hemoglobin Concent 33, Red Cell Distribution Width 13.3, Platelet Count 256, Mean Platelet Volume 10.1, Neutrophils (%) (Auto) 95H, Lymphocytes (% ) (Auto) 3L, Monocytes (%) (Auto) 3, Eosinophils (%) (Auto) 0, Basophils (%) ( Auto) 0, Neutrophils # (Auto) 30.8H, Lymphocytes # (Auto) 0.8L, Monocytes # ( Auto) 0.9, Eosinophils # (Auto) 0.0, Basophils # (Auto) 0.1, Neutrophils % ( Manual) 92, Lymphocytes % (Manual) 4, Monocytes % (Manual) 3, Metamyelocytes % 1 , Toxic Granulation 4+, Blood Gas Puncture Site RIGHT RADIAL, Blood Gas Patient Temperature 99.3, Arterial Blood pH 7.37, Arterial Blood Partial Pressure CO2 37 , Arterial Blood Partial Pressure O2 77L, Arterial Blood HCO3 21L, Arterial Blood Total CO2 22.2, Arterial Blood Oxygen Saturation 96, Arterial Blood Base Excess -3.2L, Emil Test POSITIVE, Blood Gas Ventilator Setting YES, Blood Gas Inspired Oxygen 55%, Sodium Level 144, Potassium Level 3.7, Chloride Level 114H , Carbon Dioxide Level 18L, Anion Gap 12, Blood Urea Nitrogen 19H, Creatinine 0.79, Estimat Glomerular Filtration Rate > 60, BUN/Creatinine Ratio 24, Glucose Level 182H, Calcium Level 8.0L, Phosphorus Level 2.2L, Magnesium Level 1.8, B- Type Natriuretic Peptide 47.5 03/18/18 06:10: Body Fluid Source R BRONCH WASH, Body Fluid Color SL XANTHO, Body Fluid Appearance MKD CLDY, Body Fluid Polynuclear WBCs 69, Body Fluid Mononuclear WBCs 5, Body Fluid Lymphocytes 14, Body Fluid Other Cells 12 03/18/18 11:10: Glucometer 214H Microbiology 03/15/18 Blood Culture - Preliminary, Resulted No growth 03/16/18 Gram Stain - Final, Complete 03/16/18 Sputum Culture - Final, Complete No growth Assessment/Plan Assessment/Plan Assess & Plan/Chief Complaint 1. Acute on Chronic Respiratory Failure--sedated on Vent 2. Bilateral Pneumonia/UTI with sepsis--continue abx, WBC count increased today but had bronch today 3. Hypernatremia--fluids switched 4. COPD with AE--on solumedrol 5. Anasarca--diuresed well after IV lasix Clinical Quality Measures DVT/VTE Risk/Contraindication: Risk Factor Score Per Nursin RFS Level Per Nursing on Admit: 4+=Very High AMEYA PEREZ DO Mar 18, 2018 12:43
[2018-03-18] MEDS: VANCOMYCIN INJECTION 1,500 MG in NS IV 500 ML 500 ML IV SCH (16:10)
[2018-03-18] MEDS: methylPREDNISolone 40 MG/ML (Solu-MEDROL) VIAL IV SCH (17:16)
[2018-03-18 21:24] LABS: ABG BASE EXCESS 0.6 MMOL/L (-2.5-2.5); ABG OXYGEN SATURATION 95 % (94-100); ABG PCO2 36 MMHG (35-45); ABG PH 7.45 (7.37-7.43); ABG PO2 71 MMHG (79-93); ABG TCO2 25.4 MMOL/L (21.0-31.0); ALLENS TEST POSITIVE; INSPIRED O2 60%; PATIENT TEMP 97.6; VENTILATOR YES
[2018-03-18] MEDS ORDERED: LORazepam INJ 2 MG/ML (ATIVAN) VIAL IV ONE (22:00)
[2018-03-18] MEDS ORDERED: LORazepam INJ 2 MG/ML (ATIVAN) VIAL IVP ONE (22:00)
[2018-03-18] MEDS: KETOROLAC 15 MG/ML VIAL IV PRN (23:16)
[2018-03-18] MEDS ORDERED: LABETALOL HCL 20 MG/4 ML VIAL ONE (23:53)
[2018-03-19] VITALS (24 sets, daily range): BP systolic 95–172; BP diastolic 45–96
[2018-03-19] MEDS: PIPERACILLIN/TAZO 4.5 GM/NS 100 ML IV SCH ×6 (00:08→14:39)
[2018-03-19] MEDS: LACTATED RINGERS 1,000 ML IV SCH (00:13)
[2018-03-19] MEDS: inSUlin ASPART (NovoLOG) 1 UNIT/0.01 ML (CHARGE PER UNIT) SQ SCH ×4 (00:22→17:29)
[2018-03-19] MEDS ORDERED: LABETALOL HCL 20 MG/4 ML VIAL IV PRN ×2 (01:00→04:15)
[2018-03-19] MEDS: PROPOFOL DRIP (ICU) 100 ML IV SCH ×5 (02:09→15:02)
[2018-03-19] MEDS: RT-ALBUTEROL/IPRATROPIUM 3 ML (DUONEB) VIAL INH SCH ×4 (02:40→14:14)
[2018-03-19 03:41] LABS: ABG BASE EXCESS 1.7 MMOL/L (-2.5-2.5); ABG OXYGEN SATURATION 91 % (94-100); ABG PCO2 34 MMHG (35-45); ABG PH 7.48 (7.37-7.43); ABG PO2 63 MMHG (79-93)
[2018-03-19 03:42] LABS: ALLENS TEST POSITIVE; INSPIRED O2 60%; PATIENT TEMP 98.6; VENTILATOR YES
[2018-03-19 03:45] LABS: BASOPHILS # (AUTO) 0.1 10^3/uL (0.0-0.1); BASOPHILS % (AUTO) 0 % (0-10); EOSINOPHILS % (AUTO) 0 % (0-10); HEMATOCRIT 33 % (35-52); HEMOGLOBIN 10.8 G/DL (11.5-16.0); LYMPHOCYTES # (AUTO) 1.2 X 10^3 (1.0-4.0); LYMPHOCYTES % (AUTO) 4 % (12-44); MEAN CORPUSCULAR HEMOGLOBIN 31 PG (25-34); MEAN CORPUSCULAR HGB CONC 33 G/DL (32-36); MEAN CORPUSCULAR VOLUME 95 FL (80-99); MEAN PLATELET VOLUME 10.4 FL (7.4-10.4); MONOCYTES # (AUTO) 1.7 X 10^3 (0.0-1.0); MONOCYTES % (AUTO) 5 % (0-12); NEUTROPHILS # (AUTO) 31.3 X 10^3 (1.8-7.8); NEUTROPHILS % (AUTO) 91 % (42-75); PLATELET COUNT 256 10^3/uL (130-400); RED BLOOD COUNT 3.45 10^6/uL (4.35-5.85); RED CELL DISTRIBUTION WIDTH 13.1 % (10.0-14.5)
[2018-03-19 03:53] LABS: WHITE BLOOD COUNT 34.3 10^3/uL (4.3-11.0)
[2018-03-19 03:55] LABS: BUN/CREATININE RATIO 28; CALCIUM 7.9 MG/DL (8.5-10.1); CARBON DIOXIDE 24 MMOL/L (21-32); CHLORIDE 110 MMOL/L (98-107); CREATININE SERUM 0.87 MG/DL (0.60-1.30); GFR ESTIMATED > 60; GLUCOSE 193 MG/DL (70-105); MAGNESIUM 1.5 MG/DL (1.8-2.4); PHOSPHORUS 2.8 MG/DL (2.3-4.7); POTASSIUM 3.5 MMOL/L (3.6-5.0); SODIUM 147 MMOL/L (135-145)
[2018-03-19] MEDS: MAGNESIUM 1 GM/100 ML IVPB 100 ML IV SCH ×3 (05:25→06:17)
[2018-03-19] MEDS: POTASSIUM CL 10MEQ/50ML IVPB 50 ML IV SCH ×3 (05:25→06:25)
[2018-03-19] MEDS: KCL 20 MEQ TAB (K-DUR) PO SCH (05:31)
[2018-03-19] MEDS: ENOXAPARIN 40 MG/0.4 ML (LOVENOX) SYR SC SCH (05:47)
[2018-03-19] MEDS: LEVOTHYROXINE 112 MCG (LEVOTHROID) TAB PO SCH (05:47)
[2018-03-19] MEDS: methylPREDNISolone 40 MG/ML (Solu-MEDROL) VIAL IV SCH ×2 (05:47→17:29)
[2018-03-19] MEDS ORDERED: KCL 10 MEQ TAB (MICRO K) PO ONE ×2 (06:15)
[2018-03-19] MEDS ORDERED: FUROSEMIDE 40 MG/4 ML INJ (LASIX) IVP ONE (06:15)
--- NOTE | 2018-03-19 06:22 | Pulmonary Progress Note ---
Subjective Time Seen by a Provider: 06:23 Subjective/Events-last exam Pt is currently on 60% Fi02 and PEEP of 10. Currently sedated on vent. Sepsis Event Evaluation Height, Weight, BMI Height: 5'3.00" Weight: 229lbs. 5.0oz. 103.736779tz; 33.9 BMI Method:Stated Focused Exam Lactate Level 03/16/18 22:20: Lactic Acid Level 2.46*H 03/17/18 03:15: Lactic Acid Level 2.13*H 03/17/18 07:23: Lactic Acid Level 1.61 Time of Focused Exam: 18:50 Exam Exam Vital Signs Date Time Temp Pulse Resp B/P (MAP) Pulse Ox O2 Delivery O2 Flow Rate FiO2 03/19/18 04:12 95 27 93 60 03/19/18 04:00 Mechanical Ventilator 60 03/19/18 04:00 94 26 138/86 (103) 92 Mechanical Ventilator 60.00 03/19/18 03:37 98.6 03/19/18 03:00 96 27 139/82 (101) 92 Mechanical Ventilator 60.00 03/19/18 02:40 93 27 93 60 03/19/18 02:09 Mechanical Ventilator 60.00 03/19/18 02:00 96 26 146/85 (105) 94 Mechanical Ventilator 60.00 03/19/18 01:00 94 03/19/18 01:00 94 26 154/89 (110) 93 Mechanical Ventilator 60.00 03/19/18 00:49 80 27 94 60 03/19/18 00:24 98.0 03/19/18 00:00 105 26 172/96 (121) 94 Mechanical Ventilator 60.00 03/19/18 00:00 Mechanical Ventilator 60 03/18/18 23:00 103 26 171/92 (118) 94 Mechanical Ventilator 60.00 03/18/18 22:53 97.7 100 27 170/100 94 Mechanical Ventilator 60.00 03/18/18 22:31 100 27 94 60 03/18/18 22:22 97.7 03/18/18 22:00 104 26 170/94 (119) 94 Mechanical Ventilator 60.00 03/18/18 21:00 107 27 164/85 (111) 94 Mechanical Ventilator 60.00 03/18/18 20:18 109 27 94 60 11/12/18 20:00 111 24 166/87 (113) 96 Mechanical Ventilator 60.00 03/18/18 20:00 Mechanical Ventilator 60 03/18/18 19:24 98.0 110 26 159/90 (113) 100 Mechanical Ventilator 60.00 03/18/18 19:00 111 18 19:00 111 26 159/90 (113) 100 Mechanical Ventilator 60.00 03/18/18 18:17 99 Mechanical Ventilator 60 03/18/18 18:10 106 28 99 60 03/18/18 18:00 110 26 163/95 (117) 100 Mechanical Ventilator 60.00 03/18/18 17:00 106 27 149/81 (103) 95 Mechanical Ventilator 60.00 03/18/18 16:14 111 27 95 60 03/18/18 16:11 98.3 03/18/18 16:11 Mechanical Ventilator 60 03/18/18 16:00 112 26 148/83 (104) 95 Mechanical Ventilator 55.00 03/18/18 15:00 112 26 143/75 (97) 94 Mechanical Ventilator 55.00 03/18/18 14:46 112 132/72 03/18/18 14:25 113 28 94 60 03/18/18 14:00 118 27 132/72 (92) 94 Mechanical Ventilator 55.00 03/18/18 13:42 99.6 03/18/18 13:00 118 03/18/18 13:00 118 28 145/81 (102) 98 Mechanical Ventilator 55.00 03/18/18 12:38 118 28 100 60 03/18/18 12:00 118 25 153/81 (105) 99 Mechanical Ventilator 55.00 03/18/18 11:16 97.6 03/18/18 11:16 Mechanical Ventilator 60 03/18/18 11:04 115 139/62 03/18/18 11:00 115 23 132/74 (93) 97 Mechanical Ventilator 55.00 03/18/18 10:08 120 30 97 60 03/18/18 10:00 120 22 135/74 (94) 96 Mechanical Ventilator 55.00 03/18/18 09:00 116 22 130/79 (96) 94 Mechanical Ventilator 55.00 03/18/18 08:05 117 36 93 60 03/18/18 08:00 116 23 130/66 (87) 95 Mechanical Ventilator 55.00 03/18/18 08:00 99.0 03/18/18 08:00 Mechanical Ventilator 60 03/18/18 07:00 115 03/18/18 07:00 115 30 123/56 (78) 91 Mechanical Ventilator 55.00 03/18/18 06:57 91 Mechanical Ventilator 60 03/18/18 06:45 114 27 91 60 03/18/18 06:20 99 03/18/18 06:18 60 I & O 03/19/18 07:00 Intake Total 1979 ml Output Total 4445 ml Balance -2466 ml Height & Weight Height: 5'3.00" Weight: 229lbs. 5.0oz. 103.828348ss; 33.9 BMI Method:Stated General Appearance: Other (sedated on vent) HEENT: Other (Intubated) Neck: Supple Respiratory: No Accessory Muscle Use, No Respiratory Distress, Expiration, Rhonci, Other (BS overall improved bilaterally. improved aeration bilaterally.) Cardiovascular: No Murmur, Normal Peripheral Pulses, Tachycardia Capillary Refill: Less Than 3 Seconds Peripheral Pulses: 2+ Dorsalis Pedis (R), 2+ Left Dors-Pedis (L), 2+ Radial Pulses (R), 2+ Radial Pulses (L) Gastrointestinal: normal bowel sounds, non tender, soft, no organomegaly Extremity: Pedal Edema Neurologic/Psychiatric: Other (sedated) Skin: Warm/Dry Lymphatic: No Adenopathy Results Lab Laboratory Tests 03/18/18 03:10 03/19/18 03:20 Assessment/Plan Assessment/Plan Acute on chronic respiratory failure with hypoxia with ARDS -Continue vent support -increase PEEP to 12 -Give 60mg of Lasix X 1 - TF continue per dietary recs. Pneumonia with severe sepsis secondary to pneumonia and UTI - IVF to hep lock -Give lasix 40mg IV X 1 -Continue Zosyn, vancomycin -Await cao cultures -influenza is negative but secondary to patient's high fever will go ahead and treat with Tamiflu Hypernatremia -500 cc of free water to OG Q 6 Severe COPD with AE -Decrease Solumedrol to 40 IV Q12 -SVNs Q4 -Oxygen Severe Metabolic lactic acidosis - improved -Continue to monitor Tobacco use -Education MICHELLE MEDINA DO Mar 19, 2018 06:22
[2018-03-19] MEDS: RT-ADVAIR HFA 115/21 MCG PER PUFF IH SCH (06:23)
[2018-03-19] MEDS ORDERED: NS IV 1000 ML 1,000 ML ONE ×2 (07:22→07:32)
[2018-03-19] MEDS ORDERED: KCL 20 MEQ POWDER FOR ORAL SOLUTION PO NR (07:23)
[2018-03-19] MEDS: OSELTAMIVIR 75 MG (TAMIFLU) CAPSULE PO SCH (07:29)
[2018-03-19] MEDS: PANTOPRAZOLE 40 MG (PROTONIX) VIAL IV SCH (07:29)
[2018-03-19] MEDS: ACETAMINOPHEN 500 MG TAB (TYLENOL) PO PRN (07:29)
--- NOTE | 2018-03-19 08:38 | Diagnostic Imaging Report ---
INDICATION: Intubation. COMPARISON: 03/18/2018. FINDINGS: Stable ET and enteric tubes. Right IJ central venous catheter is also stable. Right greater than left heterogeneous airspace consolidations are not changed. No pneumothorax. Possible small right pleural effusion, stable. Grossly stable cardiomediastinal silhouette. IMPRESSION: 1. Stable support devices. 2. No change in bibasilar airspace consolidations and probable small right pleural effusion. Dictated by: Dictated on workstation # [id number]
[2018-03-19] MEDS: MEROPENEM 500 MG in NS (IVPB) 100 ML IV SCH ×2 (09:58→15:51)
[2018-03-19] MEDS ORDERED: ANIDULAFUNGIN INJECTION 200 MG in NS (IVPB) 250 ML IV NR (10:00)
--- NOTE | 2018-03-19 10:17 | Anesthesia-Procedure Note ---
Procedures/Interventions Procedure Start/Stop/Diagnosis Date of Procedure: Mar 19, 2018 Start Time: 09:25 Referring Physician: Mariann Brief History Called to ICU 10 for art line placement. 20g art line catheter placed in patient 's right radial x1 stick by GAIL Noyola under my direct supervision. Good waveform noted. Art pressure 120s/70s. Report off to RN. Stop Time: 09:36 PALMA MONTOYA CRNA Mar 19, 2018 10:17
[2018-03-19 10:35] LABS: ABG BASE EXCESS 4.5 MMOL/L (-2.5-2.5); ABG OXYGEN SATURATION 92 % (94-100); ABG PCO2 40 MMHG (35-45); ABG PH 7.47 (7.37-7.43); ABG PO2 76 MMHG (79-93); ABG TCO2 29.1 MMOL/L (21.0-31.0)
[2018-03-19 10:42] LABS: ALLENS TEST ART LINE; INSPIRED O2 60%; PATIENT TEMP 100.5; VENTILATOR YES
--- NOTE | 2018-03-19 11:46 | Cardiology Progress Note ---
Subjective Date Seen by Provider: Mar 19, 2018 Time Seen by Provider: 11:45 Subjective/Events-last exam Patient is sedated and intubated. Review of Systems General: Other (unable to provide review of systems) Focused Exam Lactate Level 03/16/18 22:20: Lactic Acid Level 2.46*H 03/17/18 03:15: Lactic Acid Level 2.13*H 03/17/18 07:23: Lactic Acid Level 1.61 Time of Focused Exam: 18:50 Objective-Cardiology Exam Last Set of Vital Signs Vital Signs 03/19/18 03/19/18 03/19/18 03/19/18 03/19/18 06:00 11:01 11:03 11:12 11:18 Temp 99.8 Pulse 97 Resp 24 B/P (MAP) 127/49 Pulse Ox 95 O2 Delivery Mechanical Ventilator O2 Flow Rate 60.00 FiO2 60 Capillary Refill : Less Than 3 Seconds I&O Intake and Output 03/19/18 00:00 Intake Total 1779 ml Output Total 4400 ml Balance -2621 ml IV Total 1385 ml Tube Feeding 394 ml Output Urine Total 4400 ml General: Severe Distress, Other (Sedated and intubated) HEENT: Atraumatic, PERRLA Neck: Supple, No JVD, No Thyromegaly Lungs: Other (Bilateral rhonchi) Heart: Regular Rate, Normal S1, Normal S2, No Murmurs Abdomen: Soft, No Hepatosplenomegaly, No Masses, Other (Diminished bowel sounds ) Extremities: Normal Pulses, No Tenderness/Swelling, Other (Mild edema) Skin: No Rashes, No Breakdown, No Significant Lesion Neuro: Other (Sedated and intubated) Psych/Mental Status: Other (Sedated and intubated) Results Lab Laboratory Tests 03/19/18 03:20 A/P-Cardiology Admission Diagnosis Acute respiratory failure Acute exacerbation of COPD Sepsis Acute renal failure Assessment/Plan Acute respiratory failure, bilateral pneumonia, ventilator dependent, ARDS, receiving antibiotic, managed by Dr. Waite Pulmonary edema with ARDS, receiving antibiotic. On PEEP of 12. Continue to monitor Lactic acidosis, metabolic acidosis, improving continue to monitor Leukocytosis, persistent, receiving antibiotic, stool for C. difficile is pending Oliguria, acute renal failure, probably secondary to sepsis and hypotension while better today. Continue to monitor Acute exacerbation of COPD, history of severe COPD, managed by Dr. Waite Diabetes mellitus, followed and managed by primary care physician Clinical Quality Measures DVT/VTE Risk/Contraindication: Risk Factor Score Per Nursin RFS Level Per Nursing on Admit: 4+=Very High Pneumonia: Pseudomonal Risk: COPD YASMINE LEE MD Mar 19, 2018 11:46
--- NOTE | 2018-03-19 12:29 | Progress Note (SOAP) ---
Subjective Date Seen by a Provider: Mar 19, 2018 Time Seen by a Provider: 12:26 Subjective/Events-last exam Fwup acute on chronic respiratory failure, Bilateral pneumonia and UTI with sepsis, Hypernatremia, Anasarca, COPD with AE. Had to have sedation increased overnight due to elevated blood pressure. Focused Exam Lactate Level 03/16/18 22:20: Lactic Acid Level 2.46*H 03/17/18 03:15: Lactic Acid Level 2.13*H 03/17/18 07:23: Lactic Acid Level 1.61 Time of Focused Exam: 18:50 Objective Exam Vital Signs Date Time Temp Pulse Resp B/P (MAP) Pulse Ox O2 Delivery O2 Flow Rate FiO2 03/19/18 11:18 97 127/49 03/19/18 11:12 Mechanical Ventilator 60 03/19/18 11:03 97 24 95 60 03/19/18 11:01 99.8 03/19/18 10:41 100.5 03/19/18 08:55 Mechanical Ventilator 60 03/19/18 08:45 101 118/83 03/19/18 08:44 99.5 03/19/18 08:44 99.5 03/19/18 08:28 101 28 98 60 03/19/18 07:29 100.6 03/19/18 07:23 100.6 03/19/18 07:00 105 03/19/18 06:24 97 24 91 60 03/19/18 06:00 63 23 139/71 (93) 92 Mechanical Ventilator 60.00 03/19/18 05:00 95 27 142/90 (107) 94 Mechanical Ventilator 60.00 03/19/18 04:12 95 27 93 60 03/19/18 04:00 Mechanical Ventilator 60 03/19/18 04:00 94 26 138/86 (103) 92 Mechanical Ventilator 60.00 03/19/18 03:37 98.6 03/19/18 03:00 96 27 139/82 (101) 92 Mechanical Ventilator 60.00 03/19/18 02:40 93 27 93 60 03/19/18 02:09 Mechanical Ventilator 60.00 03/19/18 02:00 96 26 146/85 (105) 94 Mechanical Ventilator 60.00 03/19/18 01:00 94 03/19/18 01:00 94 26 154/89 (110) 93 Mechanical Ventilator 60.00 03/19/18 00:49 80 27 94 60 03/19/18 00:24 98.0 03/19/18 00:00 105 26 172/96 (121) 94 Mechanical Ventilator 60.00 03/19/18 00:00 Mechanical Ventilator 60 03/18/18 23:00 103 26 171/92 (118) 94 Mechanical Ventilator 60.00 03/18/18 22:53 97.7 100 27 170/100 94 Mechanical Ventilator 60.00 03/18/18 22:31 100 27 94 60 03/18/18 22:22 97.7 03/18/18 22:00 104 26 170/94 (119) 94 Mechanical Ventilator 60.00 03/18/18 21:00 107 27 164/85 (111) 94 Mechanical Ventilator 60.00 03/18/18 20:18 109 27 94 60 03/18/18 20:00 111 24 166/87 (113) 96 Mechanical Ventilator 60.00 03/18/18 20:00 Mechanical Ventilator 60 03/18/18 19:24 98.0 110 26 159/90 (113) 100 Mechanical Ventilator 60.00 03/18/18 19:00 111 03/18/18 19:00 111 26 159/90 (113) 100 Mechanical Ventilator 60.00 03/18/18 18:17 99 Mechanical Ventilator 60 03/18/18 18:10 106 28 99 60 03/18/18 18:00 110 26 163/95 (117) 100 Mechanical Ventilator 60.00 03/18/18 17:00 106 27 149/81 (103) 95 Mechanical Ventilator 60.00 03/18/18 16:14 111 27 95 60 03/18/18 16:11 98.3 03/18/18 16:11 Mechanical Ventilator 60 03/18/18 16:00 112 26 148/83 (104) 95 Mechanical Ventilator 55.00 03/18/18 15:00 112 26 143/75 (97) 94 Mechanical Ventilator 55.00 03/18/18 14:46 112 132/72 03/18/18 14:25 113 28 94 60 03/18/18 14:00 118 27 132/72 (92) 94 Mechanical Ventilator 55.00 03/18/18 13:42 99.6 03/18/18 13:00 118 03/18/18 13:00 118 28 145/81 (102) 98 Mechanical Ventilator 55.00 03/18/18 12:38 118 28 100 60 I & O 03/19/18 07:00 Intake Total 2229 ml Output Total 4445 ml Balance -2216 ml Capillary Refill : Less Than 3 Seconds General Appearance: Other (sedated on vent) Respiratory: Decreased Breath Sounds (coarse) Cardiovascular: Regular Rate, Rhythm, Systolic Murmur, Gallop/S4 Gastrointestinal: normal bowel sounds, soft Extremity: Non Tender, No Calf Tenderness, No Pedal Edema Neurologic/Psychiatric: Other (sedated) Skin: Warm/Dry Results Lab Laboratory Tests 03/18/18 17:15: Glucometer 191H 03/18/18 17:19: Triglycerides Level 481#H 03/18/18 21:21: Blood Gas Puncture Site R RADIAL, Blood Gas Patient Temperature 97.6, Arterial Blood pH 7.45H, Arterial Blood Partial Pressure CO2 36, Arterial Blood Partial Pressure O2 71L, Arterial Blood HCO3 24, Arterial Blood Total CO2 25.4, Arterial Blood Oxygen Saturation 95, Arterial Blood Base Excess 0.6, Emil Test POSITIVE, Blood Gas Ventilator Setting YES, Blood Gas Inspired Oxygen 60% 03/19/18 00:15: Glucometer 228H 03/19/18 03:20: White Blood Count 34.3*H, Red Blood Count 3.45L, Hemoglobin 10.8L, Hematocrit 33L, Mean Corpuscular Volume 95, Mean Corpuscular Hemoglobin 31, Mean Corpuscular Hemoglobin Concent 33, Red Cell Distribution Width 13.1, Platelet Count 256, Mean Platelet Volume 10.4, Neutrophils (%) (Auto) 91H, Lymphocytes (% ) (Auto) 4L, Monocytes (%) (Auto) 5, Eosinophils (%) (Auto) 0, Basophils (%) ( Auto) 0, Neutrophils # (Auto) 31.3H, Lymphocytes # (Auto) 1.2, Monocytes # (Auto ) 1.7H, Eosinophils # (Auto) 0.0, Basophils # (Auto) 0.1, Sodium Level 147H, Potassium Level 3.5L, Chloride Level 110H, Carbon Dioxide Level 24, Anion Gap 13 , Blood Urea Nitrogen 24H, Creatinine 0.87, Estimat Glomerular Filtration Rate > 60, BUN/Creatinine Ratio 28, Glucose Level 193H, Calcium Level 7.9L, Phosphorus Level 2.8, Magnesium Level 1.5L 03/19/18 03:35: Blood Gas Puncture Site RT RADIAL, Blood Gas Patient Temperature 98.6, Arterial Blood pH 7.48H, Arterial Blood Partial Pressure CO2 34L, Arterial Blood Partial Pressure O2 63L, Arterial Blood HCO3 25, Arterial Blood Total CO2 26.0, Arterial Blood Oxygen Saturation 91L, Arterial Blood Base Excess 1.7, Emil Test POSITIVE, Blood Gas Ventilator Setting YES, Blood Gas Inspired Oxygen 60% 03/19/18 10:25: Blood Gas Puncture Site RT ART LINE, Blood Gas Patient Temperature 100.5, Arterial Blood pH 7.47H, Arterial Blood Partial Pressure CO2 40, Arterial Blood Partial Pressure O2 76L, Arterial Blood HCO3 28H, Arterial Blood Total CO2 29.1 , Arterial Blood Oxygen Saturation 92L, Arterial Blood Base Excess 4.5H, Emil Test ART LINE, Blood Gas Ventilator Setting YES, Blood Gas Inspired Oxygen 60% 03/19/18 11:04: Glucometer 234H Microbiology 03/15/18 Blood Culture - Preliminary, Resulted No growth 03/18/18 Gram Stain - Final, Resulted 03/18/18 Bronchial Culture, Resulted Pending 03/18/18 Fungal Culture 1, Resulted Pending Assessment/Plan Assessment/Plan Assess & Plan/Chief Complaint 1. Acute on Chronic Respiratory Failure--sedated on Vent 2. Bilateral Pneumonia/UTI with sepsis--antibiotics changed to meropenem and antifungal added due to ongoing elevated WBC count and consolidations 3. Hypernatremia--stable 4. COPD with AE--on solumedrol 5. Anasarca--diuresed well after IV lasix Clinical Quality Measures DVT/VTE Risk/Contraindication: Risk Factor Score Per Nursin RFS Level Per Nursing on Admit: 4+=Very High Pneumonia: Pseudomonal Risk: COPD AMEYA PEREZ DO Mar 19, 2018 12:29
[2018-03-19] MEDS: DEXMEDETOMIDINE INJECTION 1,000 MCG in NS (IVPB) 240 ML IV SCH (14:12)
[2018-03-19] MEDS ORDERED: TROUGH ORDER-PHARMACY XX NR (16:00)
[2018-03-19] MEDS ORDERED: ENOXAPARIN 40 MG/0.4 ML (LOVENOX) SYR SC SCH (18:00)
[2018-03-20] MEDS ORDERED: ANIDULAFUNGIN INJECTION 100 MG in NS (IVPB) 100 ML IV SCH (09:00)
== END 2018-03-19 18:00 | disposition short-term general hospital (02) | DRG 871 ==
LOC: EDUNIT# 16:17 → ER 16:18 → ICU 17:30
PROVIDERS: ADMIT Family Medicine; ATTEND Internal Medicine
PROC: 5A1945Z Respiratory Ventilation, 24-96 Consecutive Hours (ICD-10-PCS; principal; 2018-03-16)
PROC: 0B9F8ZX Drainage of Right Lower Lung Lobe, Via Natural or Artificial Opening Endoscopic, Diagnostic (ICD-10-PCS; 2018-03-18)
PROC: 0BC38ZZ Extirpation of Matter from Right Main Bronchus, Via Natural or Artificial Opening Endoscopic (ICD-10-PCS; 2018-03-18)
PROC: 0BC78ZZ Extirpation of Matter from Left Main Bronchus, Via Natural or Artificial Opening Endoscopic (ICD-10-PCS; 2018-03-18)
DX: A41.9 Sepsis, unspecified organism (principal); R65.20 Severe sepsis without septic shock; J18.1 Lobar pneumonia, unspecified organism; N39.0 Urinary tract infection, site not specified; J80 Acute respiratory distress syndrome; N17.9 Acute kidney failure, unspecified; J81.0 Acute pulmonary edema; E87.2 Acidosis; J44.1 Chronic obstructive pulmonary disease with (acute) exacerbation; J44.0 Chronic obstructive pulmonary disease with (acute) lower respiratory infection; Z68.41 Body mass index [BMI] 40.0-44.9, adult; E87.0 Hyperosmolality and hypernatremia; E87.70 Fluid overload, unspecified; E11.65 Type 2 diabetes mellitus with hyperglycemia; E78.00 Pure hypercholesterolemia, unspecified; E66.9 Obesity, unspecified; F32.9 Major depressive disorder, single episode, unspecified; K21.9 Gastro-esophageal reflux disease without esophagitis; G25.0 Essential tremor; E04.1 Nontoxic single thyroid nodule; Z99.81 Dependence on supplemental oxygen; Z87.891 Personal history of nicotine dependence; Z86.73 Personal history of transient ischemic attack (TIA), and cerebral infarction without residual deficits; J98.09 Other diseases of bronchus, not elsewhere classified
CPT/HCPCS: 36415; 36600; 71045; 71275; 80048; 80053; 81000; 82805; 82962; 83036; 83605; 83735; 83880; 84100; 84478; 84484; 85007; 85025; 85027; 85610; 85730; 87015; 87040; 87070; 87081; 87101; 87116; 87205; 87206; 87804; 89051; 93005; 93041; 93306; 94002; 94003; 94640; 94660; 94799; 96361; 96365; 96375

== ENCOUNTER 2018-04-01 13:40 | Inpatient (IN) | payer MEDICARE, OTHER ==
[~2018-04-01] VITALS: Ht 160 cm; Wt 79.4 kg
[~2018-04-01 13:40] MED LIST changes: +ASPI-983 PO; +LEVO112T55 PO; +RANI150T11 PO
[2018-04-01 16:20] VITALS: BP 123/73
--- NOTE | 2018-04-01 17:08 | PM&R Post Admission Assessment ---
Post Admission Physician Asses Date seen by provider: Apr 01, 2018 Time seen by provider: 16:45 Admisison Dx: (1) COPD exacerbation Status: Acute The preadmission screen agrees with the post admission assessment that the patient is a good candidate for inpatient rehabilitation. The patient will have a comprehensive program of inpatient rehabilitation with a goal of maximizing level of functional independence prior to discharge home with [facility]. The patient will have PT/OT ninety minutes per day, each discipline , five days a week for 10 days forgait, strengthening, conditioning, balance, ADLs, any patient/family/caregiver training as necessary. Speech therapy to do cognitive assessment and treat as indicated. Rehabilitation nursing to assist with bowel, bladder, skin, medication administration, pain management. [employer] Umpire to assist with discharge planning, community reentry. SCD's for DVT prophylaxis.Resp therapy to assist with 02 administration and treatments and monitoring 02 sats She appears to be well motivated to participate in three hours of therapy a day. She should be able to tolerate three hours of therapy a day from a medical standpoint. She should benefit from the three hours of therapy a day. She has a reasonable discharge plan, reasonable discharge rehabilitation goals and a supportive family. She has various comorbidities that need to be closely monitored with medications and treatments adjusted on a daily basis as needed. These include: COPD 02 dependent recent pneumonia and sepsis Barriers to discharge for this patient who had been independent prior to this are for her to be modified independent to supervision for ADLs and mobility skills prior to discharge home with [facility], so as to lessen the burden of the caregivers. Risks for this patient include: 1. Fall 2. Fracture 3. DVT 4. Pulmonary embolism 5. Another exacerbation of COPD 6. Skin breakdown 7. Contractures 8. Poorly controlled pain 9. Urinary retention 10. UTI 11. Respiratory infection 12. Aspiration Estimated Length of Stay: 10 days Prognosis: Rehab prognosis appears good for goal of discharge home with [facility] modified independent to supervision for ADLs and mobility skills. Date Identified: Apr 01, 2018 Time Identified: 16:30 Action Plan to Resolve CSMI: Transfer meds reviewed and clarified General: Alert, Oriented X3, Cooperative, No Acute Distress HEENT: Atraumatic, PERRLA, EOMI, Mucous Memb Moist/[place], Other (02 by N/C in place) Neck: Supple, No JVD Lungs: Other (Decreased brath sounds at bases) Heart: Regular Rate Abdomen: Normal Bowel Sounds, Soft, No Tenderness Extremities: No Edema Skin: No Rashes, No Breakdown Neuro: Other (Generalized weakness) Psych/Mental Status: Mental Status NL ANTONIETA RUBIO MD Apr 01, 2018 17:08
--- NOTE | 2018-04-01 18:40 | Consultation ---
History of Present Illness History of Present Illness Patient Consulted On(nataliia/time) 04/01/18 18:34 Date Seen by Provider: Apr 01, 2018 Time Seen by Provider: 18:34 History of Present Illness This is a 67 year old female who was recently admitted at [facility] with pneumonia and sepsis on the ventilator. The patient was transferred to [facility] in [place] and was extubated 1 week ago. She was transferred back to [facility] today for inpatient rehab. She had been maximum assist but her strength did improve over the weekend. She denies cough. She is on 4liters of oxygen and was previously on 2liters of oxygen at home. I am asked to consult for medical management. Allergies and Home Medications Allergies Coded Allergies: No Known Drug Allergies (Unverified , 03/15/18) Home Medications Aspirin 81 Mg Tablet.dr, 81 MG PO DAILY, (Reported) Atorvastatin Calcium 40 Mg Tablet, 40 MG PO HS, (Reported) Cetirizine HCl 10 Mg Tablet, 10 MG PO DAILY, (Reported) Cholecalciferol (Vitamin D3) 1,000 Unit Capsule, 1,000 UNIT PO DAILY, (Reported) Levothyroxine Sodium 112 Mcg Tablet, 112 MCG PO DAILY, (Reported) Mometasone/Formoterol 13 Gm Hfa.aer.ad, 2 PUFF IH BID, (Reported) Montelukast Sodium 10 Mg Tablet, 10 MG PO HS, (Reported) Ranitidine HCl 150 Mg Tablet, 150 MG PO DAILY, (Reported) Ropinirole HCl 0.5 Mg Tablet, 0.5 MG PO HS, (Reported) Sertraline HCl 50 Mg Tablet, 50 MG PO HS, (Reported) Patient Home Medication List Home Medication List Reviewed: Yes Past Yegrrrz-Arzecs-Sswije Hx Patient Social History Alcohol Use: Denies Use Recreational Drug Use: No Smoking Status: Former Smoker Type Used: Cigarettes Former Smoker, Quit: Oct 20, 2015 Recent Foreign Travel: No Contact w/Someone Who Travel: No Recent Infectious Disease Expo: No Recent Hopitalizations: No Immunizations Up To Date Tetanus Booster (TDap): Unknown Date of Pneumonia Vaccine: Feb 14, 2016 Date of Influenza Vaccine: Feb 14, 2016 Seasonal Allergies Seasonal Allergies: No Past Medical History Surgeries: Yes Adenoidectomy, Tonsillectomy Respiratory: Yes (02 1L AT NIGHT AND NEEDED) COPD Cardiac: Yes High Cholesterol Neurological: Yes (essential tremor LEFT HAND) Stroke : No Reproductive Disorders: No Female Reproductive Disorders: Denies Sexually Transmitted Disease: No HIV/AIDS: No Genitourinary: No Gastrointestinal: Yes Gastroesophageal Reflux, Polyps Musculoskeletal: No (weakness) Endocrine: Yes (THYROID NODULES) HEENT: Yes (blurred vison. wears glasses) Loss of Vision: Bilateral Hearing Impairment: Denies Cancer: No Psychosocial: Yes Depression Integumentary: No Blood Disorders: No Adverse Reaction/Blood Tranf: No (N/A) Family Medical History Congenital heart disease 19 FATHER Hypertension 19 FATHER No Pertinent Family Hx, CVA, Hypertension Review of Systems-General Constitutional: weakness EENTM: No see HPI, No no symptoms reported, No ear discharge, No hearing loss, No ear pain, No blurred vision, No double vision, No eye pain, No tearing, No vision loss, No dental problems, No hoarseness, No mouth pain, No mouth swelling , No epistaxis, No nose congestion, No nose pain, No throat pain, No throat swelling, No other Respiratory: dyspnea on exertion Cardiovascular: No no symptoms reported, No see HPI, No chest pain, No edema, No Hx of Intervention, No palpitations, No syncope, No vascular heart diseas, No other Gastrointestinal: constipation (no BM for few days) Genitourinary: No no symptoms reported, No see HPI, No decreased output, No discharge, No dysuria, No frequency, No hematuria, No hesitancy, No incontinence , No nocturia, No pain, No other Musculoskeletal: muscle weakness Skin: No no symptoms reported, No see HPI, No change in color, No change in hair/nails, No dryness, No hx of skin cancer, No lesions, No lumps, No pruritus , No rash, No other Psychiatric/Neurological: Tremors, Weakness Physical Exam-General Problems Physical Exam Vital Signs Vital Signs - First Documented 04/01/18 16:20 Temp 98.1 Pulse 99 Resp 20 B/P (MAP) 123/73 (90) Pulse Ox 93 O2 Delivery Nasal Cannula O2 Flow Rate 4.00 Capillary Refill : General Appearance: no apparent distress HEENT: normal ENT inspection Neck: supple Respiratory: lungs clear, decreased breath sounds Cardiovascular: regular rate, rhythm, gallop/S4 Gastrointestinal: normal bowel sounds, non tender, soft Rectal: deferred Back: no CVA tenderness Extremities: normal range of motion, non-tender, no pedal edema Neurologic/Psychiatric: alert, normal mood/affect, oriented x 3 Skin: warm/dry Assessment/Plan Assessment/Plan Admission Diagnosis/Plan 1. Recent pneumonia with sepsis and respiratory failure--on oxygen at 4liters and on prednisone taper as well as home inhalers 2. Weakness--PT and OT 3. COPD with recent acute exacerbation--on steroid taper 4. Depression--zoloft resumed 5. Hypothyroidism--home levothyroxine resumed Clinical Quality Measures DVT/VTE Risk/Contraindication: Risk Factor Score Per Nursin RFS Level Per Nursing on Admit: 4+=Very High AMEYA PEREZ DO Apr 01, 2018 18:40
--- NOTE | 2018-04-01 18:51 | HISTORY AND PHYSICAL ---
DATE OF SERVICE: 04/01/2018 ADMISSION HISTORY AND PHYSICAL CHIEF COMPLAINT: Generalized weakness. HISTORY OF PRESENT ILLNESS: The patient is a 67-year-old female, who had been independent, living in her own home in [place], [place], who had an acute exacerbation of COPD due to pneumonia and sepsis, treated at [facility]. She required ventilator support for a while, but was weaned and extubated. She is currently on 4 liters of O2 and had been on 2 liters at home. Her PCP is Dr. Salvador. A hospitalist from [place], discussed the case with Dr. Lopez today. The patient completed a course of antibiotics and is on a prednisone taper. Currently, she requires assistance for ADLs and mobility skills.She is mod assist for transfers and mon assist for gait with a walker,She is min assist for upper body dressing and mod assist for lower body dressing. PAST MEDICAL HISTORY: COPD, O2 dependent; hypothyroidism; and depression. PAST SURGICAL HISTORY: No prior joint or spinal surgery. ALLERGIES: No known medication allergies. FAMILY HISTORY: Noncontributory. SOCIAL HISTORY: Lives alone, but has supportive family. REVIEW OF SYSTEMS: A 10-point review of systems is significant for weakness, easy fatigue, and dyspnea on exertion. MEDICATIONS: DuoNeb treatments q.6 hours, Lactinex 1 tablet p.o. b.i.d., prednisone 10 mg p.o. b.i.d. for 3 days, ASA 81 mg p.o. daily, Lipitor 40 mg p.o. each day at bedtime, Zyrtec 10 mg p.o. daily, vitamin D3 1000 units p.o. daily, levothyroxine 112 mcg p.o. daily, montelukast 10 mg p.o. each day at bedtime, mometasone and formoterol inhalation 2 puffs inhaled b.i.d., Zantac 150 mg p.o. daily, Requip 0.5 mg p.o. at bedtime, and Zoloft 50 mg p.o. at bedtime. PHYSICAL EXAMINATION: GENERAL: Significant for a pleasant female, appearing her stated age, lying in bed, in no acute distress. VITAL SIGNS: She is afebrile, pulse 99, respirations 20, blood pressure 123/73, and O2 sat 93% on 4 liters of O2 by nasal cannula. HEENT: Vision, speech, and hearing grossly intact. No oral lesion is noted. NECK: Supple without mass. HEART: Regular rhythm. LUNGS: Decreased breath sounds at bases. ABDOMEN: Soft, nontender, bowel sounds present. EXTREMITIES: No leg edema, no calf tenderness. MUSCULOSKELETAL: The patient has functional active range of motion in all 4 limbs. NEUROLOGIC: Cognition is grossly intact. Sensation is grossly intact to touch. Strength Upper limbs 4- to 4/5 Hip flex 3/5 dorsiflexion 3+/5 Left knee flex and extension 3+/5 RT knee flex and extension 4-/5. IMPRESSION: 1. General debilitation secondary to acute exacerbation of chronic obstructive pulmonary disease due to pneumonia and sepsis, treated. 2. Chronic obstructive pulmonary disease, O2 dependent. 3. Obesity. 4. Hypothyroidism, on replacement. 5. Restless leg syndrome, on Requip. 6. Depression on Zoloft generic. 7. DVT prophylaxis will order Lovenox subcut 8. Constipation meds adjusted by DR Salvador PLAN: The patient will have a comprehensive program of inpatient rehabilitation with goal of maximizing level of functional independence prior to discharge home with home health care. The patient will have PT, OT 90 minutes per day each discipline, 5 days a week for 10 days. Please see post-admission evaluation, which is separate document for details of plan of care. Speech Therapy to do cognitive assessment and treat as indicated. Rehabilitation nursing assist with bowel, bladder, skin care, medication administration, pain management, O2 administration, and monitoring O2 sats. Respiratory Therapy to assist with O2 administration, monitoring O2 sats, respiratory therapy, treatments administration. Follow up with Dr. Salvador, PCP. The patient's family indicates that she has been on 2 liters of O2 at home. We will see if we can wean down to 2 liters from 4 liters which is currently on. field services director to assist with discharge planning, community reentry. ESTIMATED LENGTH OF STAY: 10 days. PROGNOSIS: Rehab prognosis appears good for goal of discharging home with family and home health care, modified independent to supervision for ADLs and mobility skills. DIET: Regular. CODE STATUS: Full code. Job ID: [id number] DocumentID: [id number] Dictated Date: 04/01/2018 17:14:34 Public Address System Mechanic Date: 04/01/2018 18:50:58 Dictated By: ANTONIETA LOPEZ MD [facility]
[2018-04-01] MEDS: RT-ALBUTEROL/IPRATROPIUM 3 ML (DUONEB) VIAL INH SCH ×2 (20:05→22:47)
[2018-04-01] MEDS: MONTELUKAST 10 MG (SINGULAIR) TAB PO SCH (20:43)
[2018-04-01] MEDS: rOPINIRole 0.25 MG (REQUIP) TAB PO SCH (20:43)
[2018-04-01] MEDS: SERTRALINE 50 MG (ZOLOFT) TABLET PO SCH (20:43)
[2018-04-01] MEDS: predniSONE 10 MG TAB PO SCH (20:43)
[2018-04-01] MEDS: FAMOTIDINE 20 MG (PEPCID) TABLET PO SCH (20:44)
[2018-04-01] MEDS: ATORVASTATIN 40 MG (LIPITOR) TABLET PO SCH (20:44)
[2018-04-01] MEDS: LACTOBACILLUS Acidoph/Bulgar 1 GM (LACTINEX) PACKET PO SCH (20:44)
[2018-04-01] MEDS ORDERED: rOPINIRole 1 MG (REQUIP) TABLET PO SCH (21:00)
[2018-04-01] MEDS ORDERED: MILK OF MAGNESIA 400 MG/5 ML 30 ML UDC ONE (21:27)
[2018-04-01] MEDS ORDERED: SENNA W/DOCUSATE (SENOKOT S) TABLET ONE (21:27)
[2018-04-01] MEDS ORDERED: SENNA W/DOCUSATE (SENOKOT S) TABLET PO ONE (21:30)
[2018-04-01] MEDS ORDERED: MILK OF MAGNESIA 400 MG/5 ML 30 ML UDC PO ONE (21:30)
[2018-04-01] MEDS: RT-ADVAIR HFA 115/21 MCG PER PUFF IH SCH (22:47)
[2018-04-01 23:17] VITALS: BP 96/59
[2018-04-02] MEDS: RT-ALBUTEROL/IPRATROPIUM 3 ML (DUONEB) VIAL INH SCH ×5 (02:56→20:35)
[2018-04-02 05:00] VITALS: BP 109/66
[2018-04-02] MEDS: LEVOTHYROXINE 112 MCG (LEVOTHROID) TAB PO SCH (06:37)
[2018-04-02] MEDS: LACTOBACILLUS Acidoph/Bulgar 1 GM (LACTINEX) PACKET PO SCH ×4 (06:37→20:35)
--- NOTE | 2018-04-02 09:22 | Physical Therapy Evaluation ---
PT Evaluation-General Medical Diagnosis Admission Date Apr 01, 2018 at 16:31 Medical Diagnosis: pneumonia, sepsis Onset Date: Mar 26, 2018 Therapy Diagnosis Therapy Diagnosis: impaired mobility, strength, endurance Height/Weight Height (Feet): 5 Height (Inches): 3.00 Weight (Pounds): 172 Weight (Ounces): 0.7 Precautions Precautions/Isolations: Fall Prevention, Standard Precautions, Pressure Ulcer Referral Physician: John Reason for Referral: Evaluation/Treatment Medical History Additional Medical History Past Medical History Surgeries: Yes Adenoidectomy, Tonsillectomy Respiratory: Yes (02 1L AT NIGHT AND NEEDED) COPD Cardiac: Yes High Cholesterol Neurological: Yes (essential tremor LEFT HAND) Stroke : No Reproductive Disorders: No Female Reproductive Disorders: Denies Sexually Transmitted Disease: No HIV/AIDS: No Genitourinary: No Gastrointestinal: Yes Gastroesophageal Reflux, Polyps Musculoskeletal: No (weakness) Endocrine: Yes (THYROID NODULES) HEENT: Yes (blurred vison. wears glasses) Loss of Vision: Bilateral Hearing Impairment: Denies Cancer: No Psychosocial: Yes Depression Reviewed History: Yes Social History Home: Single Level Current Living Status: Alone Entry Into Home: Stairs Without Railing PT Steps Into Home: 2 Prior/Core FIM Prior Level of Function Functional [place] Measure 0=Not Assessed/NA 4=Minimal Assistance 1=Total Assistance 5=Supervision or Setup 2=Maximal Assistance 6=Modified [place] 3=Moderate Assistance 7=Complete IndependenceIRFPAI Quality Coding Scale 6 Independent with activity with or without an assistive device 5 Patient requires set up or clean up by helper. Patient completes activity by themselves 4 Supervision or touching assist (CGA). [place] provide cues , steadying assist 3 The helper provides less than half the effort to complete the activity 2 The helper provides more than half the effort to complete the activity 1 Dependent. The helper does all the effort to complete an activity 7 Patient refused to complete or attempt activity 9 The patient did not perform the activity before the current illness or injury 88 Not attempted due to Medical conditions or safety concerns Bed Mobility: 7 Transfers (B,C,W/C) (FIM): 7 Gait: 7 PT Evaluation-Current Subjective Patient in bed pre tx, agrees to PT, no complaints of pain. Pt/Family Goals "to get stronger and walker better" Objective Patient Orientation: Person, Place, Situation Attachments: Oxygen 4L of O2 nasal canula ROM/Strength ROM Lower Extremities WNL Strenght Lower Extremities left lower extremity (hip flexion 3/5, knee flexion 3+/5, knee extension 3+/5, dorsiflexion 3+/5), right lower extremity (hip flexion 3/5, knee flexion 4-/5, knee extension 4-/5, dorsiflexion 3+/5) Neuromuscular (Tone, Coordination, Reflexes) NT Sensory Hearing: Functional Sensation Right Lower Extremit: Intact Sensation Left Lower Extremity: Intact Transfers Functional [place] Measure 0=Not Assessed/NA 4=Minimal Assistance 1=Total Assistance 5=Supervision or Setup 2=Maximal Assistance 6=Modified [place] 3=Moderate Assistance 7=Complete IndependenceIRFPAI Quality Coding Scale 6 Independent with activity with or without an assistive device 5 Patient requires set up or clean up by helper. Patient completes activity by themselves 4 Supervision or touching assist (CGA). [place] provide cues , steadying assist 3 The helper provides less than half the effort to complete the activity 2 The helper provides more than half the effort to complete the activity 1 Dependent. The helper does all the effort to complete an activity 7 Patient refused to complete or attempt activity 9 The patient did not perform the activity before the current illness or injury 88 Not attempted due to Medical conditions or safety concerns Transfers (B, C, W/C) (FIM): 3 Scootin Rollin Roll Left to Right (QC): 3 Supine to/from Sit: 4 Sit to/from Stand: 3 bed t/f WC(FIM only if WC use): 3 Sit to Lying (QC): 3 Lying to Sitting/Side of Bed(Q: 3 Sit to Stand (QC): 2 Chair/Vvl-uo-Zvjfw Xfer(QC): 3 Car Transfer (QC): 3 Patient performs bed mobility with min assist, supine <-> sit with min assist, sit to stand with mod assist, transfers with min assist, car transfer min assist. Patient needs cues for hand placement and safety with every transfer. She will try to pull up from the walker when standing every time and will sit without turning completely. Gait Does the Patient Walk?: Yes Mode of Locomotion: Both Anticipated Mode of Locomotion: Walk Gait (FIM): 1 Walk 10 feet (QC): 4 Walk 50 ft with 2 Turns(QC): 88 Walk 150 ft (QC): 88 Walking 10ft/uneven surface-QC: 88 Distance: 15' Gait Level of Assist: 4 Gait Persons Needed: 1 Gait Assistive Device: FWW Comments/Gait Description Patient ambulated 15' with a rolling walker with min assist to control walker. Patient ambulates with walker too far out in front and needs assist to keep it closer to her because she does not follow directions to stay closer to walker. Patient has short uncoordinated steps and ambulates very slowly. Patient is not safe to try to ambulate on an uneven surface. Wheelchair Training Does the Pt Use a Wheelchair?: Yes Wheelchair (FIM): 1 Distance: 20' Wheelchair Level of Assist: 4 Type of Wheelchair: Manual Patient can propel a manual wheelchair 20' with min assist. She cannot go any further than that at this time due to fatigue. Stairs If not tested on admit;explain Patient is not able to go up and down even one step at this time due to weakness and safety concerns. Balance Sitting Static: Good Sitting Dynamic: Good Standing Static: Fair Standing Dynamic: Fair Treatment NuStep level 3 for 15 min. Assessment/Needs Patient has impaired mobility, strength, endurance. She fatigues very easily and needs frequent rest breaks to recover. Rehab Potential: Fair PT Short Term Goals Short Term Goals Time Frame: Apr 09, 2018 Transfers (B,C,W/C) (FIM): 4 Gait (FIM): 2 Gait Distance Comment: 50' Gait Level of Assist: 4 Gait Assistive Device: FWW PT Nursing Home Goals Nursing Home Goals PT Nursing Home Goals Time Frame: Apr 23, 2018 Transfers (B,C,W/C) (FIM): 5 Sit to Lying (QC): 4 Lying-Sitting on Side/Bed(QC): 4 Sit to Stand (QC): 4 Rollin Roll Left to Right (QC): 4 Chair/Yid-em-Nzkpz Xfer(QC): 4 Car Transfer (QC): 4 Gait (FIM): 5 Distance: 150' Walk 10 feet (QC): 4 Walk 10ft-Uneven Surface(QC): 4 Walk 50ft with 2 Turns (QC): 4 Walk 150 ft (QC): 4 Gait Level of Assist: 5 Gait Assistive Device: FWW Wheelchair (FIM): 5 Distance: 150' Wheelchair Level of Assist: 5 Wheel 50 feet with 2 turns (QC: 4 Stairs (FIM): 2 # of Steps: 4 1 Step (curb) (QC): 4 4 Steps (QC): 4 12 Steps (QC): 4 Stairs Level Of Assist: 4 PT Plan Problem List Problem List: Activity Tolerance, Functional Strength, Safety, Balance, Gait, Transfer, Bed Mobility Treatment/Plan Treatment Plan: Continue Plan of Care Treatment Plan: Bed Mobility, Concurrent Therapy, Education, Functional Activity Yolanda, Functional Strength, Group Therapy, Gait, Safety, Therapeutic Exercise, Transfers Treatment Duration: Apr 23, 2018 Frequency: At least 5 of 7 days/Wk (IRF) Estimated Hrs Per Day: 1.5 hours per day Patient and/or Family Agrees t: Yes Safety Risks/Education Patient Education: Gait Training, Transfer Techniques, Correct Positioning, W/ C Management, Safety Issues Teaching Recipient: Patient Teaching Methods: Demonstration, Discussion Response to Teaching: Reinforcement Needed Discharge Recommendations Plan Patient will perform bed mobility and transfer training, balance and endurance training, functional strengthening, stair training, gait training, and education , to improve functional mobility and independence at home. Therapy D/C Recommendations: Home w/ Family Support Time/GCodes Time In: 814 Time Out: 929 Total Billed Treatment Time: 75 Total Billed Treatment 1 visit GT 15' EX 15' WC 15' FA 35' SASHA MCCORD PT Apr 02, 2018 09:22
[2018-04-02] MEDS: VITAMIN D3 1,000 UNITS (CHOLECALCIFEROL) TABLET PO SCH (09:28)
[2018-04-02] MEDS: LORATADINE (CLARITIN) 10 MG TAB PO SCH (09:28)
[2018-04-02] MEDS: predniSONE 10 MG TAB PO SCH ×2 (09:28→20:36)
[2018-04-02] MEDS: ASPIRIN E.C. 81 MG (ECOTRIN) TAB PO SCH (09:28)
[2018-04-02] MEDS: FAMOTIDINE 20 MG (PEPCID) TABLET PO SCH ×2 (09:28→20:36)
[2018-04-02] MEDS: RT-ADVAIR HFA 115/21 MCG PER PUFF IH SCH ×2 (10:15→20:35)
--- NOTE | 2018-04-02 10:24 | ST Cognitive Linguistic Eval ---
Speech Evaluation-General Medical Diagnosis pneumonia, sepsis Onset Date: Mar 26, 2018 Therapy Diagnosis Therapy Diagnosis: Cognitive-communication Precautions Precautions: Fall Precautions/Isolations: Fall Prevention, Standard Precautions, Pressure Ulcer Medical History Current History Pneumonia, Sepsis Reviewed History: Yes Social History Current Living Status: Alone Speech PLF-Current Status Prior Level of Function Patient lived at home alone and was independent with all daily needs. Subjective Patient alert and cooperative. Language Eval: Auditory Comprehends Simple Yes/No Ques: Functional Indent/Objects [place]: Functional Ident/Pics in [place]: Functional Follows 1-Step Commands: Functional Follows Complex Directions: Functional Follows General Conversations: Functional Language Eval: Verbal Language Completes Spontaneous Greeting: Functional Produces Auto, Serial Info: Functional Imitates Simple Words/Phrases: Functional Word Finding: Functional Requests Basic Needs: Functional States Basic Personal Info: Functional Expresses Complex Ideas: Functional Language Evaluation: Reading Comprehends Single Nouns: Functional Follows Simple Written Direct: Functional Comprehends Multiple Sentences: Functional Cognitive Patient Orientation Patient is oriented to person, place and time. Objective Cognitive Domain Attention: WNL Memory: WNL Problem Solving: Functional Executive Functions: WNL Visuospatial Skills: WNL Patient does not exhibit any deficits with memory, problem solving or attention Objective Formal/Standardized Tests Phil Cognitive Assessment (MOCA) Results Visuospatial/Executive: 5:5 Namin:3 Memory: Immediate: 3:3, Delayed 3:3 Attention:2:2 Languag3: 2:2 Abstraction: 2:2 Orientation: 6:6 Oral Motor/Speech Production Within functional limits. Impression Patient does not exhibit any speech language deficits at this time which require remediation. Communication/Social Cognition Comprehension: 7 Expression: 7 Social Interaction: 7 Problem Solvin Memory: 7 Speech Patient Assess Memory/Recall Ability: Current season, Location of own room, That he or she is in a hsp/hsp unit Speech Short Term Goals Short Term Goals Short Term Goals Patient will demonstrate safety awareness within her living environment without cues. Speech Child And Family Therapist Goals Chcf Goals Patient will demonstrate safety and independence upon her release from this hospital for safe return home. Speech-Plan Patient/Family Goals Patient/Family Goals: Patient plans to return home as soon as she is medically stable. Treatment Plan Speech Therapy Treatment Plan: Modify Plan, See Comments Patient does not require skilled ST services at this time. Frequency: Modified Program (IRF) Estimated Hrs Per Day: Other Rehab Potential: Good Pt/Family Agrees to Plan: Yes Safety Risks/Education Teaching Recipient: Patient Teaching Methods: Discussion Response to Teaching: Verbalize Understanding Education Topics Provided: Safety within her living environment. Discharge Recommendations Patient is not recommended for skilled ST at this time. Time Speech Therapy Time In: 10:00 Speech Therapy Time Out: 10:30 Total Billed Time: 15 Billed Treatment Time 1, SPSNDCOMP ALISON Story Apr 02, 2018 10:24
[2018-04-02] MEDS ORDERED: RT-ALBUTEROL/IPRATROPIUM 3 ML (DUONEB) VIAL INH PRN (10:30)
--- NOTE | 2018-04-02 11:38 | PM & R (SOAP) Progress Note ---
Subjective This was a face to face visit with the patient. Date Seen by Provider: Apr 02, 2018 Time Seen by Provider: 07:45 Subjective/Events-last exam Patient was seen in her room this AM Adjusting well to unit Appreciate DR Cardoza note and orders.Patient mod assist for transfers Date Identified: Apr 02, 2018 Time Identified: 11:00 Medication Intervention: Lovenox subcut ordered for dvt prophylaxis Review of Systems Pulmonary: Dyspnea Neurological: Weakness Objective Physician Exam Last Set of Vital Signs Vital Signs Date Time Temp Pulse Resp B/P (MAP) Pulse Ox O2 Delivery O2 Flow Rate FiO2 04/02/18 10:11 92 Nasal Cannula 2.00 04/02/18 05:00 98.6 96 20 109/66 (80) Capillary Refill : I&O Intake and Output 04/02/18 00:00 Daily Weight Change Yes, 2-13 lbs General: Alert, Oriented X3, Cooperative, No Acute Distress HEENT: Atraumatic, PERRLA, EOMI, Mucous Memb Moist/[place], Other (02 by N/C in place) Neck: Supple, No JVD Lungs: Other (Decreased brath sounds at bases) Heart: Regular Rate Abdomen: Normal Bowel Sounds, Soft, No Tenderness Extremities: No Edema Skin: No Rashes, No Breakdown Neuro: Other (Generalized weakness) Psych/Mental Status: Mental Status NL Assessment/Plan Assessment and Plan General debil secondary to acute exacerbation of COPD COPD 02 dependent Obesity Hypothyroidism on replacement RLS on requip Depression on Zoloft generic DVT prophylaxis Lovenox subcut ordered Discussed with RN Plan Continue PT/OT Team Conference tomorrow (1) COPD exacerbation Assessment & Plan: PT/OT commencing ST has seen and signed off Status: Acute Co-Morbidities that are continuing to impact the rehab process: (include details ) ANTONIETA RUBIO MD Apr 02, 2018 11:38
[2018-04-02] MEDS: ENOXAPARIN 40 MG/0.4 ML (LOVENOX) SYR SC SCH (12:16)
--- NOTE | 2018-04-02 12:36 | Occupational Therapy Eval ---
OT Evaluation-General/PLF Medical Diagnosis Admission Date Apr 01, 2018 at 16:31 Medical Diagnosis: pneumonia, sepsis Onset Date: Mar 26, 2018 Therapy Diagnosis Therapy Diagnosis: Weakness, debility Height/Weight Height (Feet): 5 Height (Inches): 3.00 Weight (Pounds): 172 Weight (Ounces): 0.7 Precautions Precautions/Isolations: Fall Prevention, Standard Precautions, Pressure Ulcer Safety Interventions: Bed Exit Alarm, Reorient-PRN Weight Bear Status Weight Bearing Restriction: Weight Bearing/Tolerated Referral Physician: John Referral Reason: Activity Tolerance, Self Care, Evaluation/Treatment, Strengthening/ROM Medical History Pertinent Medical History: COPD Additional Medical History Depression Current History Pt. has had recent stay at [facility] for COPD exacerbation with pneumonia and sepsis. Pt. was on ventilator but weened off. Reviewed History: Yes Social History Home: Single Level Current Living Status: Alone Entry Into Home: Stairs Without Railing Steps Into Home: 2 ADL-Prior Level of Function Functional [place] Measure 0=Not Assessed/NA 4=Minimal Assistance 1=Total Assistance 5=Supervision or Setup 2=Maximal Assistance 6=Modified [place] 3=Moderate Assistance 7=Complete [place] IRFPAI Quality Coding Scale 6 Independent with activity with or without an assistive device 5 Patient requires set up or clean up by helper. Patient completes activity by themselves 4 Supervision or touching assist (CGA). [place] provide cues , steadying assist 3 The helper provides less than half the effort to complete the activity 2 The helper provides more than half the effort to complete the activity 1 Dependent. The helper does all the effort to complete an activity 7 Patient refused to complete or attempt activity 9 The patient did not perform the activity before the current illness or injury 88 Not attempted due to Medical conditions or safety concerns Functional Abilities and Goals 3. Independent: Patient completed the activities by him/herself, with or without an assistive device, with no assistance from a helper. 2. Needed Some Help: Patient needed partial assistance from another person to complete activities. 1. Dependent: A helper completed the activities for the patient. 8. Unknown: 9. Not Applicable: ADL PLOF Comments Pt. states that she was independent with daily tasks prior to this hospitalization. Self Care: Independent Functional Cognition: Independent DME/Equipment: Shower DME/Equipment Comments Pt. states that she does not use or own a walker. 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 Pt. does report that she is tired. Appearance Pt. is alert when OT walks into room. Agrees to work with OT. Mental Status/Objective Patient Orientation: Person Current Glasses/Contacts: Yes Upper Extremity ROM Pt. is able to flex bilateral shoulders to approximately 90 degrees. Upper Extremity Coordination Impaired. Pt. has significant tremors in bilateral hands but reports that this is from her steroid. Pt. states that she always "shakes" when she is on a steroid. ADL-Treatment Grooming (FIM): 3 (Please see note) Oral Hygiene (QC): 4 (Please see note-SBA) Bathing (FIM): 2 (Please see note) Shower/Bathe Self (QC): 2 Upper Body Dressing (FIM): 2 Upper Body Dressing (QC): 2 Lower Body Dressing (FIM): 3 (Please see note) Lower Body Dressing (QC): 3 On/Off Footwear (QC): 3 Toileting (FIM): 2 (Please see note.) Toileting Hygiene (QC): 2 Transfers (B, C, W/C) (FIM): 3 Toilet/Commode Transfer (FIM): 4 Toilet Transfer (QC): 4 Shower Transfer (FIM): 3 Upon entering room pt. is alert in bed. OT explains who she is. Pt. is able to answer most questions regarding home and prior history. Agrees to take shower. Transfers supine-sit with Min assist, and then is able to scoot to EOB with SBA and increased time. At this time, pt. began to have cognitive difficulty. The goal was to ambulate to the shower. Pt. unable to initiate standing. Became distracted by phone, after it had rung, but then no one was there. Pt. continued to stare at screen until OT encouraged her to put it down. Pt. able to stand with min assist from bed to walker, but requires increased time and cues. Ambulated to shower, and encouraged to step into shower. Pt. unable to process how to do this. This seemed to confuse her and she unsafely attempted to back up to it. Pt. given max cues to turn to right, but pt. turning into walker and getting caught in oxygen tubing. Once seated, pt. is first given cue to take off clothing. This seems overwhelming to pt. and she is unable to process this. OT gives her one cue, one step at a time, and this works better. However, pt. still has great difficulty. Pt. is able to take off socks by using her other foot, but does not know how to sequence taking off her shirt. Takes part of one arm out, and then looks at OT for the next cue. When OT gives it to her, pt. is still unable to initiate. OT doffs shirt for her. Pt. attempts to doff bra with cues, but then is unable to process this. OT does this for her. Pt. is unable to stand back up to doff pants, and requires max assist to stand with grab bars in shower. OT doffs pants over hips and then over feet once she is standing. After shower is started, pt. is unable to sequence how to wash self. Pt. attempts to spray hair , but only sprays the front. Pt. is unable to open shampoo bottle even with visual cues, and then unable to wash hair. OT does this for her. OT gives pt. washcloth with soap on it. Pt. will "dab" at chest, but is unable to wash any other part, even with cues. Will sit there and does not seem to be able to process how to do this. OT finishes bathing pt, and then assists with dressing , as pt. has same difficulty. Pt. transfers to wheelchair and then completes grooming at sink. Pt. unable to comb hair, even with cues, and was unable to open toothpaste with visual cues and verbal cues. Once the paste was opened for her, she was able to put it on her brush and then brush her teeth. Pt. finished grooming and then was propelled to therapy gym. Participated in visual task with replicating simple structure using four rubber bands. Pt. able to do this with increased time. Pt. was given fine motor task of stringing large beads together. Pt. requires increased time and became very distracted in therapy gym. Pt. able to string a 1/3 of the whole string, and then stated, "I'm done." Pt. taken back to room. Transferred to toilet with mod assist, and then required max assist to toilet self. Transferred sit-stand with walker with mod assist and grab bar, and then able to ambulate to bed. Transferred to bed with min assist. All needs met. Education OT Patient Education: Correct positioning, Modified ADL techniques, Progress toward Goal/Update tx plan, Purpose of tx/functional activities, Reviewed precautions, Rehab process, Transfer techniques Teaching Recipient: Patient Teaching Methods: Demonstration, Discussion Response to Teaching: Verbalize Understanding, Return Demonstration OT Short Term Goals Short Term Goals Time Frame: Apr 16, 2018 Eating(FIM): 5 Grooming(FIM): 4 Bathing(FIM): 4 Upper Body Dressing(FIM): 4 Lower Body Dressing(FIM): 4 Toileting(FIM): 4 Transfers (B,C,W/C) (FIM): 4 Toilet/Commode Transfer(FIM): 4 Shower Transfer(FIM): 4 Additional Short Term Goals: 1-Demonstrate ADL Tasks, 2-Verbalize Understanding , 3-ImproveStrength/Yolanda 1=Demonstrate adherence to instructed precautions during ADL tasks. 2=Patient will verbalize/demonstrate understanding of assistive devices/ modifications for ADL. 3=Patient will improve strength/tolerance for activity to enable patient to perform ADL's. OT Member Of Technical Staff Goals Member Of Technical Staff Goals Time Frame: Apr 30, 2018 Eating (FIM): 6 Eating (QC): 6 Groomin Oral Hygiene (QC): 6 Bathing(FIM): 5 Shower/Bathe Self (QC): 5 Upper Body Dressing(FIM): 6 Upper Body Dressing (QC): 6 Lower Body Dressing(FIM): 5 Lower Body Dressing (QC): 5 On/Off Footwear (QC): 5 Toileting(FIM): 6 Toileting Hygiene (QC): 6 Transfers (B,C,W/C) (FIM): 6 Toilet/Commode Transfer(FIM): 6 Toilet/Commode Transfer (QC): 6 Shower Transfer(FIM): 5 Additional Goals: 1-Demonstrate ADL Tasks, 2-Verbalize Understanding, 3- ImproveStrength/Yolanda 1=Demonstrate adherence to instructed precautions during ADL tasks. 2=Patient will verbalize/demonstrate understanding of assistive devices/ modifications for ADL. 3=Patient will improve strength/tolerance for activity to enable patient to perform ADL's. OT Education/Plan Problem List/Assessment Assessment: Decreased Activ Tolerance, Decreased Safety Aware, Decreased UE Strength, Dependent Transfers, Impaired Bed Mobility, Impaired Cognition, Impaired Coordination, Impaired Funct Balance, Impaired I ADL's, Impaired Self- Care Skills, Restricted Funct UE ROM Discharge Recommendations Plan/Recommendations: Continue POC Therapy D/C Recommendations: Home w/ Family Support, Occupational Therapy Home Care Treatment Plan/Plan of Care Treatment,Training & Education: Yes Patient would benefit from OT for education, treatment and training to promote independence in ADL's, mobility, safety and/or upper extremity function for ADL' s. Plan of Care: ADL Retraining, Cognitive Retraining, Functional Mobility, Group Exercise/Act as Ind, UE Funct Exercise/Act Treatment Duration: Apr 30, 2018 Frequency: 5 times per week Estimated Hrs Per Day: 1.5 hours per day Rehab Potential: Good Time/GCodes Start Time: 11:00 Stop Time: 12:20 Total Time Billed (hr/min): 80 Billed Treatment Time 1, EVH x 20minutes, ADL x 60minutes FLEX PAIZ OT Apr 02, 2018 12:36
--- NOTE | 2018-04-02 14:02 | Physical Therapy Daily Note ---
PT Daily Note-Current Subjective Pt awake in bed when PT arrived. PT agreed to participate in PT. Pain Numeric Pain Scale: 0-No Pain Location: No Pain Reported Mental Status Patient Orientation: Normal For Age Attachments: Oxygen Transfers Functional [place] Measure 0=Not Assessed/NA 4=Minimal Assistance 1=Total Assistance 5=Supervision or Setup 2=Maximal Assistance 6=Modified [place] 3=Moderate Assistance 7=Complete [place] IRFPAI Quality Coding Scale 6 Independent with activity with or without an assistive device 5 Patient requires set up or clean up by helper. Patient completes activity by themselves 4 Supervision or touching assist (CGA). [place] provide cues , steadying assist 3 The helper provides less than half the effort to complete the activity 2 The helper provides more than half the effort to complete the activity 1 Dependent. The helper does all the effort to complete an activity 7 Patient refused to complete or attempt activity 9 The patient did not perform the activity before the current illness or injury 88 Not attempted due to Medical conditions or safety concerns Transfers (B, C, W/C) (FIM): 4 Scootin Weight Bearing Right Lower Extremity: Right Full Weight Bearing Left Lower Extremity: Left Full Weight Bearing Gait Training Does the Patient Walk?: No and Walking Goal IS indicated Exercises Supine Ex: Ankle pumps, Quad Set, Heel Slides, Knee to chest, Straight leg raise Supine Reps: 20 Assessment Pt required Min A in transferring supine to sitting edge of bed. Patient stated she had light head like symptoms and requested to lay back down. Pt performed LE exercises in bed for therapy duration. PT Short Term Goals Short Term Goals Time Frame: Apr 09, 2018 Transfers (B,C,W/C) (FIM): 4 Gait (FIM): 2 Gait Distance Comment: 50' Gait Level of Assist: 4 Gait Assistive Device: FWW Wheelchair Distance: 20' PT Curling Machine Operator Goals Halfway Goals PT Curling Machine Operator Goals Time Frame: Apr 23, 2018 Transfers (B,C,W/C) (FIM): 5 Sit to Lying (QC): 4 Lying-Sitting on Side/Bed(QC): 4 Sit to Stand (QC): 4 Rollin Roll Left to Right (QC): 4 Chair/Lik-om-Aswsg Xfer(QC): 4 Car Transfer (QC): 4 Gait (FIM): 5 Distance: 150' Walk 10 feet (QC): 4 Walk 10ft-Uneven Surface(QC): 4 Walk 50ft with 2 Turns (QC): 4 Walk 150 ft (QC): 4 Gait Level of Assist: 5 Gait Assistive Device: FWW Wheelchair (FIM): 5 Distance: 150' Wheelchair Level of Assist: 5 Wheel 50 feet with 2 turns (QC: 4 Stairs (FIM): 2 # of Steps: 4 1 Step (curb) (QC): 4 4 Steps (QC): 4 12 Steps (QC): 4 Stairs Level Of Assist: 4 PT Plan Problem List Problem List: Activity Tolerance, Functional Strength, Safety, Balance, Gait, Transfer, Bed Mobility Treatment/Plan Treatment Plan: Continue Plan of Care Treatment Plan: Bed Mobility, Concurrent Therapy, Education, Functional Activity Yolanda, Functional Strength, Group Therapy, Gait, Safety, Therapeutic Exercise, Transfers Treatment Duration: Apr 23, 2018 Frequency: At least 5 of 7 days/Wk (IRF) Estimated Hrs Per Day: 1.5 hours per day Patient and/or Family Agrees t: Yes Time/GCodes Time In: 1335 Time Out: 1350 Total Billed Treatment Time: 15 Total Billed Treatment 1 Visit Ex - 15' KETURAH WELLS PT Apr 02, 2018 14:02
--- NOTE | 2018-04-02 15:51 | Occupational Ther Daily Note ---
OT Current Status-Daily Note Subjective No pain reported. Appearance Pt. in bed asleep. Wakes up and agrees to work with OT. Mental Status/Objective Patient Orientation: Person Functional [place] Measure 0=Not Assessed/NA 4=Minimal Assistance 1=Total Assistance 5=Supervision or Setup 2=Maximal Assistance 6=Modified [place] 3=Moderate Assistance 7=Complete [place] ADL-Treatment Functional [place] Measure 0=Not Assessed/NA 4=Minimal Assistance 1=Total Assistance 5=Supervision or Setup 2=Maximal Assistance 6=Modified [place] 3=Moderate Assistance 7=Complete [place] IRFPAI Quality Coding Scale 6 Independent with activity with or without an assistive device 5 Patient requires set up or clean up by helper. Patient completes activity by themselves 4 Supervision or touching assist (CGA). [place] provide cues , steadying assist 3 The helper provides less than half the effort to complete the activity 2 The helper provides more than half the effort to complete the activity 1 Dependent. The helper does all the effort to complete an activity 7 Patient refused to complete or attempt activity 9 The patient did not perform the activity before the current illness or injury 88 Not attempted due to Medical conditions or safety concerns Pt. agrees to bilateral UE AROM exercises at bed level. Completes 3 exercises x 15 reps in all planes for increased UE ROM and stretch. Requires increased time to complete tasks overall. Pt. is able to complete UE ROM within functional limits at bed level with gravity eliminated. All needs met after treatment. Education OT Patient Education: Correct positioning, Exercise program, Progress toward Goal/Update tx plan, Purpose of tx/functional activities, Reviewed precautions, Rehab process, Transfer techniques Teaching Recipient: Patient Teaching Methods: Demonstration, Discussion Response to Teaching: Verbalize Understanding, Return Demonstration OT Short Term Goals Short Term Goals Time Frame: Apr 16, 2018 Eating(FIM): 5 Grooming(FIM): 4 Bathing(FIM): 4 Upper Body Dressing(FIM): 4 Lower Body Dressing(FIM): 4 Toileting(FIM): 4 Transfers (B,C,W/C) (FIM): 4 Toilet/Commode Transfer(FIM): 4 Shower Transfer(FIM): 4 Additional Short Term Goals: 1-Demonstrate ADL Tasks, 2-Verbalize Understanding , 3-ImproveStrength/Yolanda 1=Demonstrate adherence to instructed precautions during ADL tasks. 2=Patient will verbalize/demonstrate understanding of assistive devices/ modifications for ADL. 3=Patient will improve strength/tolerance for activity to enable patient to perform ADL's. OT Roll Builder Goals Roll Builder Goals Time Frame: Apr 30, 2018 Eating (FIM): 6 Eating (QC): 6 Groomin Oral Hygiene (QC): 6 Bathing(FIM): 5 Shower/Bathe Self (QC): 5 Upper Body Dressing(FIM): 6 Upper Body Dressing (QC): 6 Lower Body Dressing(FIM): 5 Lower Body Dressing (QC): 5 On/Off Footwear (QC): 5 Toileting(FIM): 6 Toileting Hygiene (QC): 6 Transfers (B,C,W/C) (FIM): 6 Toilet/Commode Transfer(FIM): 6 Toilet/Commode Transfer (QC): 6 Shower Transfer(FIM): 5 Additional Goals: 1-Demonstrate ADL Tasks, 2-Verbalize Understanding, 3- ImproveStrength/Yolanda 1=Demonstrate adherence to instructed precautions during ADL tasks. 2=Patient will verbalize/demonstrate understanding of assistive devices/ modifications for ADL. 3=Patient will improve strength/tolerance for activity to enable patient to perform ADL's. OT Education/Plan Problem List/Assessment Assessment: Decreased Activ Tolerance, Decreased UE Strength, Impaired I ADL's , Impaired Self-Care Skills, Restricted Funct UE ROM Discharge Recommendations Plan/Recommendations: Continue POC Treatment Plan/Plan of Care Treatment,Training & Education: Yes Patient would benefit from OT for education, treatment and training to promote independence in ADL's, mobility, safety and/or upper extremity function for ADL' s. Plan of Care: ADL Retraining, Cognitive Retraining, Functional Mobility, Group Exercise/Act as Ind, UE Funct Exercise/Act Treatment Duration: Apr 30, 2018 Frequency: 5 times per week Estimated Hrs Per Day: 1.5 hours per day Rehab Potential: Good Time/GCodes Start Time: 14:50 Stop Time: 15:00 Total Time Billed (hr/min): 10 Billed Treatment Time 1, Ex FLEX PAIZ OT Apr 02, 2018 15:51
--- NOTE | 2018-04-02 19:27 | Progress Note (SOAP) ---
Subjective Date Seen by a Provider: Apr 02, 2018 Time Seen by a Provider: 12:50 Subjective/Events-last exam Fwup recent pneumonia with sepsis and respiratory failure, COPD, weakness. Did have BM. Weak today after starting therapies. Objective Exam Vital Signs Date Time Temp Pulse Resp B/P (MAP) Pulse Ox O2 Delivery O2 Flow Rate FiO2 04/02/18 10:11 92 Nasal Cannula 2.00 04/02/18 09:19 Nasal Cannula 4.00 04/02/18 05:00 98.6 96 20 109/66 (80) 93 Nasal Cannula 4.00 04/02/18 02:56 90 Nasal Cannula 4.00 04/01/18 23:17 98.3 85 18 96/59 (71) 93 Nasal Cannula 4.00 04/01/18 22:59 94 Nasal Cannula 4.00 04/01/18 22:48 93 Nasal Cannula 4.00 04/01/18 21:00 Nasal Cannula 4.00 I & O 04/02/18 07:00 Intake Total 300 ml Output Total 400 ml Balance -100 ml Capillary Refill : General Appearance: No Apparent Distress Neck: Supple Respiratory: Lungs Clear, Decreased Breath Sounds Cardiovascular: Regular Rate, Rhythm Gastrointestinal: normal bowel sounds, non tender, soft Extremity: Non Tender, No Calf Tenderness, No Pedal Edema Neurologic/Psychiatric: Alert, Oriented x3 Skin: Warm/Dry Assessment/Plan Assessment/Plan Assess & Plan/Chief Complaint 1. Recent pneumonia with sepsis and respiratory failure--on oxygen at 4liters and on prednisone taper as well as home inhalers 2. Weakness--PT and OT 3. COPD with recent acute exacerbation--on steroid taper 4. Depression--zoloft resumed 5. Hypothyroidism--home levothyroxine resumed 6. Constipation--had BM after Senokot-S and MOM Clinical Quality Measures DVT/VTE Risk/Contraindication: Risk Factor Score Per Nursin RFS Level Per Nursing on Admit: 4+=Very High AMEYA PEREZ DO Apr 02, 2018 7:26 pm
[2018-04-02] MEDS: ATORVASTATIN 40 MG (LIPITOR) TABLET PO SCH (20:35)
[2018-04-02] MEDS: MONTELUKAST 10 MG (SINGULAIR) TAB PO SCH (20:36)
[2018-04-02] MEDS: SERTRALINE 50 MG (ZOLOFT) TABLET PO SCH (20:36)
[2018-04-02] MEDS: rOPINIRole 0.25 MG (REQUIP) TAB PO SCH (20:36)
[2018-04-02] MEDS: SENNA W/DOCUSATE (SENOKOT S) TABLET PO SCH (20:36)
[2018-04-03 05:38] VITALS: BP 129/69
[2018-04-03] MEDS: LACTOBACILLUS Acidoph/Bulgar 1 GM (LACTINEX) PACKET PO SCH ×4 (06:23→20:49)
[2018-04-03] MEDS: LEVOTHYROXINE 112 MCG (LEVOTHROID) TAB PO SCH (06:23)
[2018-04-03 06:53] LABS: BASOPHILS % (AUTO) 1 % (0-10); EOSINOPHILS # (AUTO) 0.1 10^3/uL (0.0-0.3); EOSINOPHILS % (AUTO) 1 % (0-10); HEMATOCRIT 34 % (35-52); HEMOGLOBIN 10.8 G/DL (11.5-16.0); LYMPHOCYTES # (AUTO) 1.1 X 10^3 (1.0-4.0); LYMPHOCYTES % (AUTO) 19 % (12-44); MEAN CORPUSCULAR HEMOGLOBIN 32 PG (25-34); MEAN CORPUSCULAR HGB CONC 32 G/DL (32-36); MEAN CORPUSCULAR VOLUME 100 FL (80-99); MEAN PLATELET VOLUME 9.5 FL (7.4-10.4); MONOCYTES # (AUTO) 0.7 X 10^3 (0.0-1.0); MONOCYTES % (AUTO) 12 % (0-12); NEUTROPHILS # (AUTO) 3.7 X 10^3 (1.8-7.8); NEUTROPHILS % (AUTO) 67 % (42-75); PLATELET COUNT 383 10^3/uL (130-400); RED BLOOD COUNT 3.36 10^6/uL (4.35-5.85); RED CELL DISTRIBUTION WIDTH 14.8 % (10.0-14.5); WHITE BLOOD COUNT 5.5 10^3/uL (4.3-11.0)
[2018-04-03 07:16] LABS: ALANINE AMINOTRANSFERASE 26 U/L (0-55); ALKALINE PHOSPHATASE 82 U/L (40-136); BILIRUBIN,TOTAL 0.5 MG/DL (0.1-1.0); BUN/CREATININE RATIO 16; CALCIUM 8.9 MG/DL (8.5-10.1); CARBON DIOXIDE 24 MMOL/L (21-32); CHLORIDE 103 MMOL/L (98-107); GFR ESTIMATED > 60; GLUCOSE 171 MG/DL (70-105); POTASSIUM 3.9 MMOL/L (3.6-5.0); SODIUM 140 MMOL/L (135-145); TOTAL PROTEIN 6.7 GM/DL (6.4-8.2)
--- NOTE | 2018-04-03 09:29 | PM & R (SOAP) Progress Note ---
Subjective This was a face to face visit with the patient. Date Seen by Provider: Apr 03, 2018 Time Seen by Provider: 07:45 Subjective/Events-last exam Patient was seen in her room this AM patient min assist for transfers.Resp treatments decreased without difficulty Slept better last night Date Identified: Apr 03, 2018 Time Identified: 08:00 Medication Intervention: Resp treatments decreased in frequency Meds adjusted for constipation Objective Physician Exam Last Set of Vital Signs Vital Signs Date Time Temp Pulse Resp B/P (MAP) Pulse Ox O2 Delivery O2 Flow Rate FiO2 04/03/18 07:52 Nasal Cannula 4.00 04/03/18 05:38 98.2 92 20 129/69 (89) 95 Capillary Refill : I&O Intake and Output 04/03/18 00:00 Intake Total 700 ml Output Total 400 ml Balance 300 ml Intake Oral 700 ml Output Urine Total 400 ml # Voids 3 # Bowel Movements 1 General: Alert, Oriented X3, Cooperative, No Acute Distress HEENT: Atraumatic, PERRLA, EOMI, Mucous Memb Moist/Ruso, Other (02 by N/C in place) Neck: Supple, No JVD Lungs: Other (Decreased brath sounds at bases) Heart: Regular Rate Abdomen: Normal Bowel Sounds, Soft, No Tenderness Extremities: No Edema Skin: No Rashes, No Breakdown Neuro: Other (Generalized weakness) Psych/Mental Status: Mental Status NL Results Lab Data Laboratory Tests 04/03/18 06:36: White Blood Count 5.5, Red Blood Count 3.36L, Hemoglobin 10.8L, Hematocrit 34L, Mean Corpuscular Volume 100H, Mean Corpuscular Hemoglobin 32, Mean Corpuscular Hemoglobin Concent 32, Red Cell Distribution Width 14.8H, Platelet Count 383, Mean Platelet Volume 9.5, Neutrophils (%) (Auto) 67, Lymphocytes (%) (Auto) 19, Monocytes (%) (Auto) 12, Eosinophils (%) (Auto) 1, Basophils (%) (Auto) 1, Neutrophils # (Auto) 3.7, Lymphocytes # (Auto) 1.1, Monocytes # (Auto) 0.7, Eosinophils # (Auto) 0.1, Basophils # (Auto) 0.0, Sodium Level 140, Potassium Level 3.9, Chloride Level 103, Carbon Dioxide Level 24, Anion Gap 13, Blood Urea Nitrogen 11, Creatinine 0.70, Estimat Glomerular Filtration Rate > 60, BUN/ Creatinine Ratio 16, Glucose Level 171H, Calcium Level 8.9, Corrected Calcium 8.9, Total Bilirubin 0.5, Aspartate Amino Transf (AST/SGOT) 20, Alanine Aminotransferase (ALT/SGPT) 26, Alkaline Phosphatase 82, Total Protein 6.7, Albumin 4.0 Assessment/Plan Assessment and Plan General debil secondary to acute exacerbation of COPD improving 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
[2018-04-03] MEDS: SENNA W/DOCUSATE (SENOKOT S) TABLET PO SCH ×2 (09:32→20:54)
[2018-04-03] MEDS: FAMOTIDINE 20 MG (PEPCID) TABLET PO SCH ×2 (09:32→20:48)
[2018-04-03] MEDS: ASPIRIN E.C. 81 MG (ECOTRIN) TAB PO SCH (09:32)
[2018-04-03] MEDS: LORATADINE (CLARITIN) 10 MG TAB PO SCH (09:33)
[2018-04-03] MEDS: predniSONE 10 MG TAB PO SCH ×2 (09:33→20:48)
[2018-04-03] MEDS: VITAMIN D3 1,000 UNITS (CHOLECALCIFEROL) TABLET PO SCH (09:33)
--- NOTE | 2018-04-03 09:49 | Individualized Plan of Care ---
Individualized Plan of Care Rehab Nursing IPOC Order Admission Date Apr 01, 2018 at 16:31 Current Orders Orders Ambulate 08,12,20 (04/01/18 16:15) Sequential Compression Device 08,20 (04/01/18 16:15) Dvt/Vte Risk - Notifiy Physici 08 (04/01/18 16:15) Admission Order(Inpt,Obs,Sdc) (04/01/18 16:38) Vital Signs: Routine (Order) 08,16,00 (04/01/18 16:38) Sequential Compression Device 08,20 (04/01/18 16:38) Food And Nutrition Professor-Inpt Rehab Con (04/01/18 16:38) Rehab Nursing Orders-Ipoc (04/01/18 16:38) Physical Therapy Rehab Orders (04/01/18 16:38) Occupational Therapy Rehab Ord (04/01/18 16:38) Speech Therapy Rehab Orders (04/01/18 16:38) General/Regular (04/02/18 Breakfast) Turn And Reposition Q2HR (04/01/18 16:38) Intake & Output 06,14,22 (04/01/18 16:38) Precautions (Aru) (04/01/18 16:38) Weekly Weight (Lbs) WEEK (04/01/18 16:38) Code/Resuscitation (04/01/18 16:38) Initiate Admission Nursing Pro .admission (04/01/18 16:38) Consult Physician (04/01/18 16:43) Albuterol/Ipra Inhalation Soln (Duoneb I (04/01/18 18:00) Lactobacillus/[place] Granu (Lactinex (04/01/18 21:00) Prednisone Tablet (Deltasone Tablet) (04/01/18 21:00) Aspirin Enteric Coated Tablet (Ecotrin T (04/02/18 09:00) Atorvastatin Tablet (Lipitor) (04/01/18 21:00) Loratadine Tablet (Claritin Tablet) (04/02/18 09:00) Cholecalciferol Capsule/Tablet (Vitamin (04/02/18 09:00) Levothyroxine Tablet (Synthroid Tablet) (04/02/18 06:30) Montelukast Tablet (Singulair Tablet) (04/01/18 21:00) Famotidine Tablet (Pepcid Tablet) (04/01/18 21:00) Ropinirole Tablet (Requip Tablet) (04/01/18 21:00) Sertraline Tablet (Zoloft Tablet) (04/01/18 21:00) Pharmacy Communication (Pharmacy Communi (04/01/18 16:45) Oxygen-Administer ,19 (04/01/18 16:51) Oxygen Delivery Set Up (04/01/18 16:51) General/Regular (04/01/18 Dinner) Ropinirole Tablet (Requip Tablet) (04/01/18 21:00) Fluticasone/Salmeterol Common (Advair 11 (04/01/18 20:00) Senna S Tablet (Senokot S Tablet) (04/01/18 21:30) Magnesium Hydroxide Oral Susp (Mom Oral (04/01/18 21:30) Senna S Tablet (Senokot S Tablet) (04/01/18 21:27) Magnesium Hydroxide Oral Susp (Mom Oral (04/01/18 21:27) Albuterol/Ipra Inhalation Soln (Duoneb I (04/02/18 14:00) Albuterol/Ipra Inhalation Soln (Duoneb I (04/02/18 10:30) Svn Small Volume Nebulizer (04/02/18 10:22) Patient Visit (04/02/18 ) Functional Activities, Ea 15 (04/02/18 ) Wheelchair Mgmt/Propulsn 15min (04/02/18 ) Exercise Therap, Ea 15 Min (04/02/18 ) Gait Training, Ea 15 Min (04/02/18 ) Enoxaparin Injection (Lovenox Injection) (04/02/18 11:30) Cbc With Automated Diff (04/03/18 06:00) Comprehensive Metabolic Panel (04/03/18 06:00) Patient Visit (04/02/18 ) Treat. Speech/Lang/Voice (04/02/18 ) Senna S Tablet (Senokot S Tablet) (04/02/18 21:00) Patient Visit (04/02/18 ) Exercise Therap, Ea 15 Min (04/02/18 ) Rehab Nursing Orders: Ongoing Assess. of Cognitive Status, Ongoing Assess. of Function Status, Disease Management & Educaiton, DVT Prophylaxis, Fall Prevention, Fluid/Electrolyte/Nutrition Mgmt, Infection Prevention, Medication Management & Education, Management of Risks & Complications, Management of Skin Intergrity, Nutrition Management, Pain Management, Patient/Family Support PT IPOC Problem List: Activity Tolerance, Functional Strength, Safety, Balance, Gait, Transfer, Bed Mobility Treatment Plan: Continue Plan of Care Bed Mobility, Concurrent Therapy, Education, Functional Activity Yolanda, Functional Strength, Group Therapy, Gait, Safety, Therapeutic Exercise, Transfers Treatment Duration: Apr 23, 2018 Frequency: At least 5 of 7 days/Wk (IRF) Estimated Hrs Per Day: 1.5 hours per day OT IPOC Problems: Decreased Activ Tolerance, Decreased UE Strength, Impaired I ADL's, Impaired Self-Care Skills, Restricted Funct UE ROM OT Treatment, Training and Edu: Yes Plan of Care: ADL Retraining, Cognitive Retraining, Functional Mobility, Group Exercise/Act as Ind, UE Funct Exercise/Act Treatment Duration: Apr 30, 2018 Frequency: 5 times per week Estimated Hrs Per Day: 1.[address] IPOC Speech Therapy Treatment Plan: Modify Plan, See Comments Treatment Duration: Apr 08, 2018 Frequency: Modified Program (IRF) Estimated Hrs Per Day: Other Food And Nutrition Professor/Case Mgmt Food And Nutrition Professor/Case Managemen: Discharge Planning, Patient/Family Counseling Dietitian/Director Of Instruction Dietitian/Director Of Instruction to monitor nutritional status and make changes and/or recommendations as needed and work with speech pathology on dietary upgrades as the occur. Physician IPOC Medical Issues being managed closely and that require the 24 hour availability of a physician: COPD RLS Constipation C code 17.9 Etiologic DX Resp failure Medical Issues: Bowel/Bladder Function, DVT Prophylaxis, Infection Protection, Other (List) (as per above) Brief Synthesis of Preadmission Screen, Post-Admission Evaluation, and Therapy Evaluations: 67 yo female who had been Independent prior to acute exacerbation of COPD due to pneumonia treated at OSH referred to IRU for ongoing care and therapies due to a decline in Functional [place] [facility] Prognosis: Good Anticipated Length of Stay: 2 weeks Modified Independent for adls and mobility skills Anticipated d/c Destination: Home with ANTONIETA OLIVEIRA MD Apr 03, 2018 09:49
[2018-04-03] MEDS: RT-ALBUTEROL/IPRATROPIUM 3 ML (DUONEB) VIAL INH SCH ×3 (09:52→19:24)
[2018-04-03] MEDS: RT-ADVAIR HFA 115/21 MCG PER PUFF IH SCH ×2 (09:58→19:24)
--- NOTE | 2018-04-03 12:08 | Physical Therapy Daily Note ---
PT Daily Note-Current Subjective Pt sitting in recliner upon arrival. Pt agrees to PT. Pt reports fatiguing easy but no pain. Pain Location: No Pain Reported Mental Status Patient Orientation: Person, Place, Time, Situation Transfers Functional [place] Measure 0=Not Assessed/NA 4=Minimal Assistance 1=Total Assistance 5=Supervision or Setup 2=Maximal Assistance 6=Modified [place] 3=Moderate Assistance 7=Complete [place] IRFPAI Quality Coding Scale 6 Independent with activity with or without an assistive device 5 Patient requires set up or clean up by helper. Patient completes activity by themselves 4 Supervision or touching assist ([facility]). [place] provide cues , steadying assist 3 The helper provides less than half the effort to complete the activity 2 The helper provides more than half the effort to complete the activity 1 Dependent. The helper does all the effort to complete an activity 7 Patient refused to complete or attempt activity 9 The patient did not perform the activity before the current illness or injury 88 Not attempted due to Medical conditions or safety concerns Scootin Sit to/from Stand: 4 Sit to Stand (QC): 4 Weight Bearing Right Lower Extremity: Right Full Weight Bearing Left Lower Extremity: Left Full Weight Bearing Gait Training Does the Patient Walk?: Yes Distance (FIM): 3=150 ft Distance: 150' Walk 10 feet (QC): 5 Walk 50 ft with 2 Turns(QC): 5 Walk 150 ft (QC): 5 Gait Level of Assist: 5 Gait Persons Needed: 1 Gait Assistive Device: FWW Pt gets SOA and fatigues occasionally and needs rest break to recover. Wheelchair Training Does the Pt Use a Wheelchair?: No Exercises Seated Therapy Exercises: Ankle pumps, Long arc quads, Hip flexion, Kicking activity Seated Reps: 15 NuStep Minutes: 15 NuStep Workload: 3 Treatments Pt completes Seated Ex in recliner then transfers from sitting to standing at [facility]. MAGNETIC TAPE COMPOSER OPERATOR & pt discuss how pneumonia can affect and wear pt down & plan to build strength & activity tolerance to improve for discharge to home in the future. Pt ambulates using FWW at close SBA. Pt uses NuStep for 15m at WL 3. Pt ambulates in hallway before returning to room at end of tx. MAGNETIC TAPE COMPOSER OPERATOR assists pt with ordering lunch and teaches how it can be completed in future. Assessment Current Status: Good Progress Pt continues to push self but does fatigue easily. MAGNETIC TAPE COMPOSER OPERATOR & pt discuss building strength to aid with activity tolerance. PT Short Term Goals Short Term Goals Time Frame: Apr 09, 2018 Transfers (B,C,W/C) (FIM): 4 Gait (FIM): 2 Gait Distance Comment: 50' Gait Level of Assist: 4 Gait Assistive Device: FWW Wheelchair Distance: 20' PT Automotive Electrical Fitter Goals Automotive Electrical Fitter Goals PT Group Home Goals Time Frame: Apr 23, 2018 Transfers (B,C,W/C) (FIM): 5 Sit to Lying (QC): 4 Lying-Sitting on Side/Bed(QC): 4 Sit to Stand (QC): 4 Rollin Roll Left to Right (QC): 4 Chair/Nqb-eu-Wgihp Xfer(QC): 4 Car Transfer (QC): 4 Gait (FIM): 5 Distance: 150' Walk 10 feet (QC): 4 Walk 10ft-Uneven Surface(QC): 4 Walk 50ft with 2 Turns (QC): 4 Walk 150 ft (QC): 4 Gait Level of Assist: 5 Gait Assistive Device: FWW Wheelchair (FIM): 5 Distance: 150' Wheelchair Level of Assist: 5 Wheel 50 feet with 2 turns (QC: 4 Stairs (FIM): 2 # of Steps: 4 1 Step (curb) (QC): 4 4 Steps (QC): 4 12 Steps (QC): 4 Stairs Level Of Assist: 4 PT Plan Problem List Problem List: Activity Tolerance, Functional Strength, Safety, Gait Treatment/Plan Treatment Plan: Continue Plan of Care Treatment Plan: Bed Mobility, Concurrent Therapy, Education, Functional Activity Yolanda, Functional Strength, Group Therapy, Gait, Safety, Therapeutic Exercise, Transfers Treatment Duration: Apr 23, 2018 Frequency: At least 5 of 7 days/Wk (IRF) Estimated Hrs Per Day: 1.5 hours per day Patient and/or Family Agrees t: Yes Safety Risks/Education Patient Education: Gait Training, Transfer Techniques, Correct Positioning, Disease Process, Safety Issues Teaching Recipient: Patient Teaching Methods: Discussion Response to Teaching: Verbalize Understanding Time/GCodes Time In: 1045 Time Out: 1200 Total Billed Treatment Time: 75 Total Billed Treatment 1, GT (20m), FA x2 (25m) & EX x2 (30m) G Codes Necessary: TAMRA Zhang MAGNETIC TAPE COMPOSER OPERATOR Apr 03, 2018 12:08
[2018-04-03] MEDS: ENOXAPARIN 40 MG/0.4 ML (LOVENOX) SYR SC SCH (12:35)
--- NOTE | 2018-04-03 12:50 | Occupational Ther Daily Note ---
OT Current Status-Daily Note Subjective Pt stated that felt better and was more rested. Appearance Pt supine in bed, alert and willing to work with OT. Mental Status/Objective Patient Orientation: Person, Place, Time, Situation Functional [place] Measure 0=Not Assessed/NA 4=Minimal Assistance 1=Total Assistance 5=Supervision or Setup 2=Maximal Assistance 6=Modified [place] 3=Moderate Assistance 7=Complete [place] ADL-Treatment Functional [place] Measure 0=Not Assessed/NA 4=Minimal Assistance 1=Total Assistance 5=Supervision or Setup 2=Maximal Assistance 6=Modified [place] 3=Moderate Assistance 7=Complete [place] IRFPAI Quality Coding Scale 6 Independent with activity with or without an assistive device 5 Patient requires set up or clean up by helper. Patient completes activity by themselves 4 Supervision or touching assist (CGA). [place] provide cues , steadying assist 3 The helper provides less than half the effort to complete the activity 2 The helper provides more than half the effort to complete the activity 1 Dependent. The helper does all the effort to complete an activity 7 Patient refused to complete or attempt activity 9 The patient did not perform the activity before the current illness or injury 88 Not attempted due to Medical conditions or safety concerns Grooming (FIM): 2 (Pt needed max a to comb hair due to fatigue. Due to extended time to shower, Pt was unable to brush her teeth during session. Pt participated in grooming sinkside in . ) Bathing (FIM): 3 (Pt requires assist in washing lower legs/feet and rear pasquale area. Pt uses long handled sponge, but not able to manipulate it correctly to be effective. ) Bathing Location: L Arm, R Arm, L Upper Leg, R Upper Leg, Chest, Abdomen, Perineal Area Upper Body (FIM): 4 (Pt requires min a for doffing hospital gown, assist in untieing gown. Pt requires assist to don bra. Pt requires assist in pulling shirt over head stating that she can't reach it and pulling it down in back. This requires extended time. Pt participated in task sitting on shower bench. ) Lower Body Dressing (FIM): 3 (Pt able to doff undergarments. OT provided education on use of AE dressing stick to assist in donning undergarments and pants. Pt unable to manipulate dressing stick in order to utilize. OT provided assist in threading undergarments and pants. Pt able to stand at grab bars and pull up undergarments and pants needing assist in pulling up over hips. OT provided instruction on use of sock aide. Pt able to don socks with sock aide prepared with sock but unable to remove sock aide from back of sock once on. ) Toileting (FIM): 3 (Pt able to pull down undergarments. Pt states that she doesn't think she can cleanse herself. Pt gathers large amount of tissue to cleanse. Pt unable to cleanse rear pasquale area stating that she can't reach. OT provided education on how to cleanse rear pasquale area, Pt unable to process. OT cleansed rear pasquale area. Undergarments doffed for showering. ) Transfers (B, C, W/C) (FIM): 4 (Pt requires min a in all transfers. Verbal cues for hand placement. CGA in ambulation. ) Toilet/Commode Transfer (FIM): 4 (CGA assist to toilet. ) Shower Transfer(FIM): 3 (CGA assist from FWW to shower bench. Min a from shower bench to FWW. ) Pt participated in showering. Pt requires many verbal cues and extended time for processing. Pt pauses several times during tasks. Pt requires hand held shower sprayer, long handled sponge, shower bench, and use of grab bars. Pt has difficulty in transferring from shower bench to stand at FWW. With cues and demonstration of hand placement on grab bars, still has difficulty in processing how to stand to FWW from shower bench. When given cues, Pt often will just sit and look off for extended period of time, often requiring redirection before starting task. Pt transferred to recliner at end of session, all needs met. O2 on 4L. Education OT Patient Education: Correct positioning, Energy conservation, Modified ADL techniques, Progress toward Goal/Update tx plan, Purpose of tx/functional activities, Reviewed precautions, Rehab process, Safety issues, Transfer techniques, Use of adapted equipment Teaching Recipient: Patient Teaching Methods: Demonstration, Discussion Response to Teaching: Verbalize Understanding, Return Demonstration, Reinforcement Needed OT Short Term Goals Short Term Goals Time Frame: Apr 16, 2018 Eating(FIM): 5 Grooming(FIM): 4 Bathing(FIM): 4 Upper Body Dressing(FIM): 4 Lower Body Dressing(FIM): 4 Toileting(FIM): 4 Transfers (B,C,W/C) (FIM): 4 Toilet/Commode Transfer(FIM): 4 Shower Transfer(FIM): 4 Additional Short Term Goals: 1-Demonstrate ADL Tasks, 2-Verbalize Understanding , 3-ImproveStrength/Yolanda 1=Demonstrate adherence to instructed precautions during ADL tasks. 2=Patient will verbalize/demonstrate understanding of assistive devices/ modifications for ADL. 3=Patient will improve strength/tolerance for activity to enable patient to perform ADL's. OT Chiller Tender Goals Fdc Goals Time Frame: Apr 30, 2018 Eating (FIM): 6 Eating (QC): 6 Groomin Oral Hygiene (QC): 6 Bathing(FIM): 5 Shower/Bathe Self (QC): 5 Upper Body Dressing(FIM): 6 Upper Body Dressing (QC): 6 Lower Body Dressing(FIM): 5 Lower Body Dressing (QC): 5 On/Off Footwear (QC): 5 Toileting(FIM): 6 Toileting Hygiene (QC): 6 Transfers (B,C,W/C) (FIM): 6 Toilet/Commode Transfer(FIM): 6 Toilet/Commode Transfer (QC): 6 Shower Transfer(FIM): 5 Additional Goals: 1-Demonstrate ADL Tasks, 2-Verbalize Understanding, 3- ImproveStrength/Yolanda 1=Demonstrate adherence to instructed precautions during ADL tasks. 2=Patient will verbalize/demonstrate understanding of assistive devices/ modifications for ADL. 3=Patient will improve strength/tolerance for activity to enable patient to perform ADL's. OT Education/Plan Problem List/Assessment Assessment: Decreased Activ Tolerance, Decreased Safety Aware, Decreased UE Strength, Impaired Cognition, Impaired I ADL's, Impaired Self-Care Skills Discharge Recommendations Plan/Recommendations: Continue POC Treatment Plan/Plan of Care Treatment,Training & Education: Yes Patient would benefit from OT for education, treatment and training to promote independence in ADL's, mobility, safety and/or upper extremity function for ADL' s. Plan of Care: ADL Retraining, Cognitive Retraining, Functional Mobility, Group Exercise/Act as Ind, UE Funct Exercise/Act Treatment Duration: Apr 30, 2018 Frequency: 5 times per week Estimated Hrs Per Day: 1.5 hours per day Rehab Potential: Good Time/GCodes Start Time: 08:30 Stop Time: 09:45 Total Time Billed (hr/min): 75 Billed Treatment Time 1, ADL x 75 minutes. KIRSTY VORA OT Apr 03, 2018 12:50
--- NOTE | 2018-04-03 12:59 | Progress Note (SOAP) ---
Subjective Date Seen by a Provider: Apr 03, 2018 Time Seen by a Provider: 12:58 Subjective/Events-last exam Fwup recent pneumonia with sepsis and respiratory failure, COPD, weakness. More alert today but is tired with therapy. Objective Exam Vital Signs Date Time Temp Pulse Resp B/P (MAP) Pulse Ox O2 Delivery O2 Flow Rate FiO2 04/03/18 12:39 97 Nasal Cannula 4.00 04/03/18 09:58 96 Nasal Cannula 4.00 04/03/18 09:52 93 Nasal Cannula 4.00 04/03/18 07:52 Nasal Cannula 4.00 04/03/18 05:38 98.2 92 20 129/69 (89) 95 Nasal Cannula 4.00 04/02/18 20:57 Nasal Cannula 4.00 04/02/18 20:35 93 Nasal Cannula 4.00 I & O 04/03/18 07:00 Intake Total 722 ml Balance 722 ml Capillary Refill : General Appearance: No Apparent Distress Neck: Supple Respiratory: Lungs Clear, Decreased Breath Sounds Cardiovascular: Regular Rate, Rhythm Gastrointestinal: normal bowel sounds, non tender, soft Extremity: Non Tender, No Calf Tenderness, No Pedal Edema Neurologic/Psychiatric: Alert, Oriented x3 Skin: Warm/Dry Results Lab Laboratory Tests 04/03/18 06:36: White Blood Count 5.5, Red Blood Count 3.36L, Hemoglobin 10.8L, Hematocrit 34L, Mean Corpuscular Volume 100H, Mean Corpuscular Hemoglobin 32, Mean Corpuscular Hemoglobin Concent 32, Red Cell Distribution Width 14.8H, Platelet Count 383, Mean Platelet Volume 9.5, Neutrophils (%) (Auto) 67, Lymphocytes (%) (Auto) 19, Monocytes (%) (Auto) 12, Eosinophils (%) (Auto) 1, Basophils (%) (Auto) 1, Neutrophils # (Auto) 3.7, Lymphocytes # (Auto) 1.1, Monocytes # (Auto) 0.7, Eosinophils # (Auto) 0.1, Basophils # (Auto) 0.0, Sodium Level 140, Potassium Level 3.9, Chloride Level 103, Carbon Dioxide Level 24, Anion Gap 13, Blood Urea Nitrogen 11, Creatinine 0.70, Estimat Glomerular Filtration Rate > 60, BUN/ Creatinine Ratio 16, Glucose Level 171H, Calcium Level 8.9, Corrected Calcium 8.9, Total Bilirubin 0.5, Aspartate Amino Transf (AST/SGOT) 20, Alanine Aminotransferase (ALT/SGPT) 26, Alkaline Phosphatase 82, Total Protein 6.7, Albumin 4.0 Assessment/Plan Assessment/Plan Assess & Plan/Chief Complaint 1. Recent pneumonia with sepsis and respiratory failure--on oxygen at 4liters and on prednisone taper as well as home inhalers 2. Weakness--PT and OT 3. COPD with recent acute exacerbation--on steroid taper 4. Depression--zoloft resumed 5. Hypothyroidism--home levothyroxine resumed 6. Constipation--improved Clinical Quality Measures DVT/VTE Risk/Contraindication: Risk Factor Score Per Nursin RFS Level Per Nursing on Admit: 4+=Very High AMEYA PEREZ DO Apr 03, 2018 12:59 pm
[2018-04-03 15:44] VITALS: BP 112/66
[2018-04-03] MEDS ORDERED: SALINE NASAL SPRAY (OCEAN) 45 ML BTL PRN (16:00)
[2018-04-03] MEDS: rOPINIRole 0.25 MG (REQUIP) TAB PO SCH (20:48)
[2018-04-03] MEDS: SERTRALINE 50 MG (ZOLOFT) TABLET PO SCH (20:48)
[2018-04-03] MEDS: MONTELUKAST 10 MG (SINGULAIR) TAB PO SCH (20:49)
[2018-04-03] MEDS: ATORVASTATIN 40 MG (LIPITOR) TABLET PO SCH (20:49)
[2018-04-04 05:32] VITALS: BP 126/64
[2018-04-04] MEDS: LACTOBACILLUS Acidoph/Bulgar 1 GM (LACTINEX) PACKET PO SCH ×4 (06:34→20:20)
[2018-04-04] MEDS: LEVOTHYROXINE 112 MCG (LEVOTHROID) TAB PO SCH (06:34)
[2018-04-04] MEDS: FAMOTIDINE 20 MG (PEPCID) TABLET PO SCH ×2 (08:03→20:19)
[2018-04-04] MEDS: predniSONE 10 MG TAB PO SCH ×2 (08:03→20:19)
[2018-04-04] MEDS: VITAMIN D3 1,000 UNITS (CHOLECALCIFEROL) TABLET PO SCH (08:03)
[2018-04-04] MEDS: LORATADINE (CLARITIN) 10 MG TAB PO SCH (08:03)
[2018-04-04] MEDS: ASPIRIN E.C. 81 MG (ECOTRIN) TAB PO SCH (08:03)
[2018-04-04] MEDS: SENNA W/DOCUSATE (SENOKOT S) TABLET PO SCH ×2 (08:03→20:20)
--- NOTE | 2018-04-04 09:57 | Speech Therapy Daily Note ---
Speech Daily Progress Note Subjective Date Seen by Provider: Apr 04, 2018 Time Seen by Provider: 00:30 Patient awake and alert. Patient's son present for the session. Objective Patient completed memory tasks related to general information at 80% with minimal verbal cues or repetitions. Treatment Plan Continue Plan of Care Communication Comprehension: 7 Expression: 7 Social Cognition Social Interaction: 7 Problem Solvin Memory: 7 Speech Short Term Goals Short Term Goals Short Term Goals Patient will demonstrate safety awareness within her living environment without cues. Speech Snf Goals Salvage Winder Goals Patient will demonstrate safety and independence upon her release from this hospital for safe return home. Speech-Plan Patient/Family Goals Patient/Family Goals: Patient plans to return to her home when she is medically stable with family support. Treatment Plan Speech Therapy Treatment Plan: Continue Plan of Care Patient is progressing well as her medical status improves. Treatment Duration: Apr 08, 2018 Frequency: Modified Program (IRF) Estimated Hrs Per Day: Other Rehab Potential: Good Barriers to Learning: Patient continues to have some mild memory and problem solving deficits. Pt/Family Agrees to Plan: Yes Safety Risks/Education Teaching Recipient: Patient, Family Teaching Methods: Discussion Response to Teaching: Verbalize Understanding Education Topics Provided: Safety strategies within her immediate environment. Time Speech Therapy Time In: 08:30 Speech Therapy Time Out: 09:00 Total Billed Time: 30 Billed Treatment Time 1[address] Apr 04, 2018 09:57
--- NOTE | 2018-04-04 11:13 | Physical Therapy Daily Note ---
PT Daily Note-Current Subjective Pt sitting up in bed visiting with son upon arrival. Pt agrees to PT. Pain Location: No Pain Reported Mental Status Patient Orientation: Person, Place, Situation Transfers Functional [place] Measure 0=Not Assessed/NA 4=Minimal Assistance 1=Total Assistance 5=Supervision or Setup 2=Maximal Assistance 6=Modified [place] 3=Moderate Assistance 7=Complete [place] IRFPAI Quality Coding Scale 6 Independent with activity with or without an assistive device 5 Patient requires set up or clean up by helper. Patient completes activity by themselves 4 Supervision or touching assist (CGA). [place] provide cues , steadying assist 3 The helper provides less than half the effort to complete the activity 2 The helper provides more than half the effort to complete the activity 1 Dependent. The helper does all the effort to complete an activity 7 Patient refused to complete or attempt activity 9 The patient did not perform the activity before the current illness or injury 88 Not attempted due to Medical conditions or safety concerns Scootin Rollin Supine to/from Sit: 4 Sit to/from Stand: 4 Sit to Stand (QC): 4 Weight Bearing Right Lower Extremity: Right Full Weight Bearing Left Lower Extremity: Left Full Weight Bearing Gait Training Does the Patient Walk?: Yes Distance (FIM): 3=150 ft Distance: 150' Walk 10 feet (QC): 5 Walk 50 ft with 2 Turns(QC): 5 Walk 150 ft (QC): 5 Gait Level of Assist: 5 Gait Assistive Device: FWW Pt walks with slow and cautious gait pattern. Exercises Seated Therapy Exercises: Ankle pumps, Long arc quads, Hip flexion, Kicking activity, Hip abd/add NuStep Minutes: 15 NuStep Workload: 4 Treatments Pt transfers from bed to standing at CGA-Min A. Pt ambulates in hallway using FWW at SBA. Pt uses NuStep for 15m at WL 4 then completes Seated Ex before returning to room. Pt rests in recliner at end of tx with all needs met. OT will arrive shortly. Assessment Current Status: Good Progress Pt fatigues during tx but has increased with strength and activity tolerance. PT Short Term Goals Short Term Goals Time Frame: Apr 09, 2018 Transfers (B,C,W/C) (FIM): 4 Gait (FIM): 2 Gait Distance Comment: 50' Gait Level of Assist: 4 Gait Assistive Device: FWW Wheelchair Distance: 20' PT Halfway Goals Junior Software Developer Goals PT Junior Software Developer Goals Time Frame: Apr 23, 2018 Transfers (B,C,W/C) (FIM): 5 Sit to Lying (QC): 4 Lying-Sitting on Side/Bed(QC): 4 Sit to Stand (QC): 4 Rollin Roll Left to Right (QC): 4 Chair/Iaq-nk-Tatgv Xfer(QC): 4 Car Transfer (QC): 4 Gait (FIM): 5 Distance: 150' Walk 10 feet (QC): 4 Walk 10ft-Uneven Surface(QC): 4 Walk 50ft with 2 Turns (QC): 4 Walk 150 ft (QC): 4 Gait Level of Assist: 5 Gait Assistive Device: FWW Wheelchair (FIM): 5 Distance: 150' Wheelchair Level of Assist: 5 Wheel 50 feet with 2 turns (QC: 4 Stairs (FIM): 2 # of Steps: 4 1 Step (curb) (QC): 4 4 Steps (QC): 4 12 Steps (QC): 4 Stairs Level Of Assist: 4 PT Plan Problem List Problem List: Activity Tolerance, Functional Strength, Safety, Transfer Treatment/Plan Treatment Plan: Continue Plan of Care Treatment Plan: Bed Mobility, Concurrent Therapy, Education, Functional Activity Yolanda, Functional Strength, Group Therapy, Gait, Safety, Therapeutic Exercise, Transfers Treatment Duration: Apr 23, 2018 Frequency: At least 5 of 7 days/Wk (IRF) Estimated Hrs Per Day: 1.5 hours per day Patient and/or Family Agrees t: Yes Safety Risks/Education Patient Education: Gait Training, Transfer Techniques, Correct Positioning, Safety Issues Teaching Recipient: Patient Teaching Methods: Discussion Response to Teaching: Verbalize Understanding Time/GCodes Time In: 900 Time Out: 945 Total Billed Treatment 1, GT (15m) & EX x2 (30m) G Codes Necessary: TAMRA Zhang SHIPPING POINT INSPECTOR Apr 04, 2018 11:13
[2018-04-04] MEDS: ENOXAPARIN 40 MG/0.4 ML (LOVENOX) SYR SC SCH (11:46)
[2018-04-04] MEDS: RT-ADVAIR HFA 115/21 MCG PER PUFF IH SCH ×2 (12:00→19:53)
[2018-04-04] MEDS: RT-ALBUTEROL/IPRATROPIUM 3 ML (DUONEB) VIAL INH SCH ×3 (12:00→19:52)
--- NOTE | 2018-04-04 12:41 | Occupational Ther Daily Note ---
OT Current Status-Daily Note Subjective Pt stated that she is staying focused on getting better so that she can go home. Appearance Pt sitting in recliner, alert, and ready to work with OT. Mental Status/Objective Patient Orientation: Person, Place, Time, Situation Functional [place] Measure 0=Not Assessed/NA 4=Minimal Assistance 1=Total Assistance 5=Supervision or Setup 2=Maximal Assistance 6=Modified [place] 3=Moderate Assistance 7=Complete [place] ADL-Treatment Functional [place] Measure 0=Not Assessed/NA 4=Minimal Assistance 1=Total Assistance 5=Supervision or Setup 2=Maximal Assistance 6=Modified [place] 3=Moderate Assistance 7=Complete [place] IRFPAI Quality Coding Scale 6 Independent with activity with or without an assistive device 5 Patient requires set up or clean up by helper. Patient completes activity by themselves 4 Supervision or touching assist (CGA). [place] provide cues , steadying assist 3 The helper provides less than half the effort to complete the activity 2 The helper provides more than half the effort to complete the activity 1 Dependent. The helper does all the effort to complete an activity 7 Patient refused to complete or attempt activity 9 The patient did not perform the activity before the current illness or injury 88 Not attempted due to Medical conditions or safety concerns Grooming (FIM): 4 (Pt able to wash/dry hands and brush teeth MOD I at sinkside in chair. Pt requires assist to comb hair. ) Bathing (FIM): 4 (Pt requires assist to wash rear pasquale area. Pt requires verbal cues to initiate and finish task of bathing. ) Bathing Location: L Arm, R Arm, L Upper Leg, R Upper Leg, L Lower Leg ( including foot), R Lower Leg (including foot), Chest, Abdomen, Perineal Area Shower/Bathe Self (QC): 4 Upper Body (FIM): 4 (Pt able to doff shirt SBA on shower bench. Pt requires assist in latching bra and pulling shirt down in back. ) Upper Body Dressing (QC): 4 Lower Body Dressing (FIM): 3 (Pt able to doff undergarments, pants and socks SBA while sitting on toilet. Pt requires MAX A to don undergarments, pants and socks. Pt requires assist in threading and pulling over hips. Pt didn't attempt to put on socks today, OT applied. ) Lower Body Dressing (QC): 3 On/Off Footwear (QC): 3 Toileting (FIM): 3 (Pt requires assist to cleanse rear pasquale area while standing holding grab bars. ) Toileting Hygiene (QC): 3 Transfers (B, C, W/C) (FIM): 4 (Pt makes all transfers with CGA: recliiner to FWW, FWW to recliner. ) Toilet/Commode Transfer (FIM): 4 (Pt transfers CGA FWW to toilet with use of grab bars toilet to FWW. ) Toilet Transfer (QC): 4 Shower Transfer(FIM): 4 (Pt transfers CGA from FWW to shower bench and use of grab bars from shower bench to chair. ) Pt participated in a shower. Pt ambulated to bathroom CGA. Pt requested to use toilet.Pt able to process tasks more clearly today. Pt required verbal cues but less than previous day. Pt able to stay more on task and initiation improved. Pt able to don straps of bra needing only assist in latching, previously needed help in threading arms. Pt able to wash feet without cueing. Pt did not feel that she could cleanse her rear pasquale area after BM due to not being able to lean to side to cleanse. OT assisted Pt while in stance with Pt holding onto grab bars and Pt cleansing rear pasquale area. OT cleansed pasquale area that Pt was unable to successfully cleanse. Pt worked more quickly through tasks today of bathing, but then fatigued quickly and was unable to proceed at same pace. Pt transferred from shower to chair to participate in grooming sink side. Pt was fatigued towards end of session and required assist in combing hair stating that she couldn't lift her arms anymore. Pt also stated that she didn't feel she could use the sock aide to put her socks on today, that she just wanted to go lay down. Pt ambulated with FWW to bed and transferred to bed CGA. Pt was laying on her side per her request with all needs met, with 4L O2. Education OT Patient Education: Energy conservation, Modified ADL techniques, Progress toward Goal/Update tx plan, Purpose of tx/functional activities, Reviewed precautions, Rehab process, Transfer techniques Teaching Recipient: Patient Teaching Methods: Demonstration, Discussion Response to Teaching: Verbalize Understanding, Return Demonstration OT Short Term Goals Short Term Goals Time Frame: Apr 16, 2018 Eating(FIM): 5 Grooming(FIM): 4 Bathing(FIM): 4 Upper Body Dressing(FIM): 4 Lower Body Dressing(FIM): 4 Toileting(FIM): 4 Transfers (B,C,W/C) (FIM): 4 Toilet/Commode Transfer(FIM): 4 Shower Transfer(FIM): 4 Additional Short Term Goals: 1-Demonstrate ADL Tasks, 2-Verbalize Understanding , 3-ImproveStrength/Yolanda 1=Demonstrate adherence to instructed precautions during ADL tasks. 2=Patient will verbalize/demonstrate understanding of assistive devices/ modifications for ADL. 3=Patient will improve strength/tolerance for activity to enable patient to perform ADL's. OT Sales Trader Goals Sales Trader Goals Time Frame: Apr 30, 2018 Eating (FIM): 6 Eating (QC): 6 Groomin Oral Hygiene (QC): 6 Bathing(FIM): 5 Shower/Bathe Self (QC): 5 Upper Body Dressing(FIM): 6 Upper Body Dressing (QC): 6 Lower Body Dressing(FIM): 5 Lower Body Dressing (QC): 5 On/Off Footwear (QC): 5 Toileting(FIM): 6 Toileting Hygiene (QC): 6 Transfers (B,C,W/C) (FIM): 6 Toilet/Commode Transfer(FIM): 6 Toilet/Commode Transfer (QC): 6 Shower Transfer(FIM): 5 Additional Goals: 1-Demonstrate ADL Tasks, 2-Verbalize Understanding, 3- ImproveStrength/Yolanda 1=Demonstrate adherence to instructed precautions during ADL tasks. 2=Patient will verbalize/demonstrate understanding of assistive devices/ modifications for ADL. 3=Patient will improve strength/tolerance for activity to enable patient to perform ADL's. OT Education/Plan Problem List/Assessment Assessment: Decreased Activ Tolerance, Decreased UE Strength, Impaired Cognition, Impaired I ADL's, Impaired Self-Care Skills Discharge Recommendations Plan/Recommendations: Continue POC Therapy D/C Recommendations: Home w/ Family Support, Occupational Therapy Home Care Treatment Plan/Plan of Care Treatment,Training & Education: Yes Patient would benefit from OT for education, treatment and training to promote independence in ADL's, mobility, safety and/or upper extremity function for ADL' s. Plan of Care: ADL Retraining, Cognitive Retraining, Functional Mobility, Group Exercise/Act as Ind, UE Funct Exercise/Act Treatment Duration: Apr 30, 2018 Frequency: 5 times per week Estimated Hrs Per Day: 1.5 hours per day Agreement: Yes Rehab Potential: Good Time/GCodes Start Time: 10:00 Stop Time: 11:20 Total Time Billed (hr/min): 80 Billed Treatment Time 1, ADL x 80 minutes. FLEX PAIZ OT Apr 04, 2018 12:41
--- NOTE | 2018-04-04 13:55 | Physical Therapy Daily Note ---
PT Daily Note-Current Subjective Pt sitting in recliner finishing lunch upon arrival. Pt agrees to PT. Pain Location: No Pain Reported Mental Status Patient Orientation: Person, Place, Situation Transfers Functional [place] Measure 0=Not Assessed/NA 4=Minimal Assistance 1=Total Assistance 5=Supervision or Setup 2=Maximal Assistance 6=Modified [place] 3=Moderate Assistance 7=Complete [place] IRFPAI Quality Coding Scale 6 Independent with activity with or without an assistive device 5 Patient requires set up or clean up by helper. Patient completes activity by themselves 4 Supervision or touching assist (CGA). [place] provide cues , steadying assist 3 The helper provides less than half the effort to complete the activity 2 The helper provides more than half the effort to complete the activity 1 Dependent. The helper does all the effort to complete an activity 7 Patient refused to complete or attempt activity 9 The patient did not perform the activity before the current illness or injury 88 Not attempted due to Medical conditions or safety concerns Weight Bearing Right Lower Extremity: Right Full Weight Bearing Left Lower Extremity: Left Full Weight Bearing Exercises Seated Therapy Exercises: Ankle pumps, Long arc quads, Hip flexion, Kicking activity, Hip abd/add Treatments Pt completes Seated Ex with a couple short rest breaks. PROFILING MACHINE SETUP OPERATOR & pt discuss how pt is feeling with Therapy, if improved breathing with Therapy and pneumonia improving. PROFILING MACHINE SETUP OPERATOR educates on need for continues improvement and sitting up to allow for proper breathing. Pt resting at end of tx with all needs met. Assessment Current Status: Good Progress Pt fatigues easily, need to continue to work on activity tolerance. PT Short Term Goals Short Term Goals Time Frame: Apr 09, 2018 Transfers (B,C,W/C) (FIM): 4 Gait (FIM): 2 Gait Distance Comment: 50' Gait Level of Assist: 4 Gait Assistive Device: FWW Wheelchair Distance: 20' PT Assisted Goals Assisted Goals PT Assisted Goals Time Frame: Apr 23, 2018 Transfers (B,C,W/C) (FIM): 5 Sit to Lying (QC): 4 Lying-Sitting on Side/Bed(QC): 4 Sit to Stand (QC): 4 Rollin Roll Left to Right (QC): 4 Chair/Vip-gt-Lsqbl Xfer(QC): 4 Car Transfer (QC): 4 Gait (FIM): 5 Distance: 150' Walk 10 feet (QC): 4 Walk 10ft-Uneven Surface(QC): 4 Walk 50ft with 2 Turns (QC): 4 Walk 150 ft (QC): 4 Gait Level of Assist: 5 Gait Assistive Device: FWW Wheelchair (FIM): 5 Distance: 150' Wheelchair Level of Assist: 5 Wheel 50 feet with 2 turns (QC: 4 Stairs (FIM): 2 # of Steps: 4 1 Step (curb) (QC): 4 4 Steps (QC): 4 12 Steps (QC): 4 Stairs Level Of Assist: 4 PT Plan Problem List Problem List: Activity Tolerance, Functional Strength Treatment/Plan Treatment Plan: Continue Plan of Care Treatment Plan: Bed Mobility, Concurrent Therapy, Education, Functional Activity Yolanda, Functional Strength, Group Therapy, Gait, Safety, Therapeutic Exercise, Transfers Treatment Duration: Apr 23, 2018 Frequency: At least 5 of 7 days/Wk (IRF) Estimated Hrs Per Day: 1.5 hours per day Patient and/or Family Agrees t: Yes Safety Risks/Education Patient Education: Correct Positioning, Disease Process, Safety Issues Teaching Recipient: Patient Teaching Methods: Discussion Response to Teaching: Verbalize Understanding Time/GCodes Time In: 1245 Time Out: 1315 Total Billed Treatment 1, FA (15m) & EX (15m) G Codes Necessary: TAMRA Zhang PROFILING MACHINE SETUP OPERATOR Apr 04, 2018 13:55
--- NOTE | 2018-04-04 14:17 | Speech Therapy Progress Note ---
Therapy Progress Note This note is for 04/03/[address] services. Times of service: 10:15 to 10: 45. Patient was seen for skilled ST with focus on memory and problem solving. Patient was verbally presented a series of 4 items with a specific question related to 2 or more items in the presented group, Patient completed at 75% with moderate verbal cues and/or repetitions. ALISON MONTANEZ Apr 04, 2018 14:17
--- NOTE | 2018-04-04 15:30 | PM & R (SOAP) Progress Note ---
Subjective This was a face to face visit with the patient. Date Seen by Provider: Apr 04, 2018 Time Seen by Provider: 07:50 Subjective/Events-last exam Patient was seen in HER ROOM THIS am.Patient min assist for transfers Endurance improving Objective Physician Exam Last Set of Vital Signs Vital Signs Date Time Temp Pulse Resp B/P (MAP) Pulse Ox O2 Delivery O2 Flow Rate FiO2 04/04/18 10:30 Nasal Cannula 4.00 04/04/18 05:32 98.9 103 18 126/64 (84) 94 Capillary Refill : I&O Intake and Output 04/04/18 00:00 Intake Total 322 ml Balance 322 ml Intake Oral 322 ml # Voids 3 # Bowel Movements 2 General: Alert, Oriented X3, Cooperative, No Acute Distress HEENT: Atraumatic, PERRLA, EOMI, Mucous Memb Moist/[place], Other (02 by N/C in place) Neck: Supple, No JVD Lungs: Other (Decreased brath sounds at bases) Heart: Regular Rate Abdomen: Normal Bowel Sounds, Soft, No Tenderness Extremities: No Edema Skin: No Rashes, No Breakdown Neuro: Other (Generalized weakness) Psych/Mental Status: Mental Status NL Results Lab Data Laboratory Tests 04/03/18 06:36: White Blood Count 5.5, Red Blood Count 3.36L, Hemoglobin 10.8L, Hematocrit 34L, Mean Corpuscular Volume 100H, Mean Corpuscular Hemoglobin 32, Mean Corpuscular Hemoglobin Concent 32, Red Cell Distribution Width 14.8H, Platelet Count 383, Mean Platelet Volume 9.5, Neutrophils (%) (Auto) 67, Lymphocytes (%) (Auto) 19, Monocytes (%) (Auto) 12, Eosinophils (%) (Auto) 1, Basophils (%) (Auto) 1, Neutrophils # (Auto) 3.7, Lymphocytes # (Auto) 1.1, Monocytes # (Auto) 0.7, Eosinophils # (Auto) 0.1, Basophils # (Auto) 0.0, Sodium Level 140, Potassium Level 3.9, Chloride Level 103, Carbon Dioxide Level 24, Anion Gap 13, Blood Urea Nitrogen 11, Creatinine 0.70, Estimat Glomerular Filtration Rate > 60, BUN/ Creatinine Ratio 16, Glucose Level 171H, Calcium Level 8.9, Corrected Calcium 8.9, Total Bilirubin 0.5, Aspartate Amino Transf (AST/SGOT) 20, Alanine Aminotransferase (ALT/SGPT) 26, Alkaline Phosphatase 82, Total Protein 6.7, Albumin 4.0 Assessment/Plan Assessment and Plan General debil secondary to acute exacerbation ogf COPD improving 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
--- NOTE | 2018-04-04 18:24 | Progress Note (SOAP) ---
Subjective Date Seen by a Provider: Apr 04, 2018 Time Seen by a Provider: 12:40 Subjective/Events-last exam Fwup recent pneumonia with sepsis and respiratory failure, COPD, weakness. Tired from therapy. Objective Exam Vital Signs Date Time Temp Pulse Resp B/P (MAP) Pulse Ox O2 Delivery O2 Flow Rate FiO2 04/04/18 10:30 Nasal Cannula 4.00 04/04/18 05:32 98.9 103 18 126/64 (84) 94 Nasal Cannula 4.00 04/03/18 21:00 Nasal Cannula 4.00 04/03/18 19:25 98 Nasal Cannula 4.00 I & O 04/04/18 07:00 Intake Total 250 ml Balance 250 ml Capillary Refill : General Appearance: No Apparent Distress Neck: Supple Respiratory: Lungs Clear, Decreased Breath Sounds Cardiovascular: Regular Rate, Rhythm Gastrointestinal: normal bowel sounds, non tender, soft Extremity: Non Tender, No Calf Tenderness, No Pedal Edema Neurologic/Psychiatric: Alert, Oriented x3 Skin: Warm/Dry Assessment/Plan Assessment/Plan Assess & Plan/Chief Complaint 1. Recent pneumonia with sepsis and respiratory failure--on oxygen at 4liters and on prednisone taper as well as home inhalers 2. Weakness--PT and OT 3. COPD with recent acute exacerbation--on steroid taper 4. Depression--zoloft resumed 5. Hypothyroidism--home levothyroxine resumed 6. Constipation--improved 7. Acute Anemia---add MV with iron Clinical Quality Measures DVT/VTE Risk/Contraindication: Risk Factor Score Per Nursin RFS Level Per Nursing on Admit: 4+=Very High AMEYA PEREZ DO Apr 04, 2018 6:24 pm
[2018-04-04 18:33] VITALS: BP 120/76
[2018-04-04] MEDS: MONTELUKAST 10 MG (SINGULAIR) TAB PO SCH (20:19)
[2018-04-04] MEDS: ATORVASTATIN 40 MG (LIPITOR) TABLET PO SCH (20:19)
[2018-04-04] MEDS: SERTRALINE 50 MG (ZOLOFT) TABLET PO SCH (20:20)
[2018-04-04] MEDS: rOPINIRole 0.25 MG (REQUIP) TAB PO SCH (20:20)
[2018-04-05 05:08] VITALS: BP 134/64
[2018-04-05] MEDS: LEVOTHYROXINE 112 MCG (LEVOTHROID) TAB PO SCH (06:22)
[2018-04-05] MEDS: MULTIVIT W/MINERALS TAB (THERAGRAN M) PO SCH (06:22)
[2018-04-05] MEDS: LACTOBACILLUS Acidoph/Bulgar 1 GM (LACTINEX) PACKET PO SCH ×4 (06:23→20:25)
[2018-04-05] MEDS: RT-ALBUTEROL/IPRATROPIUM 3 ML (DUONEB) VIAL INH SCH ×2 (06:47→15:11)
[2018-04-05] MEDS: RT-ADVAIR HFA 115/21 MCG PER PUFF IH SCH (06:48)
[2018-04-05] MEDS: LORATADINE (CLARITIN) 10 MG TAB PO SCH (08:12)
[2018-04-05] MEDS: VITAMIN D3 1,000 UNITS (CHOLECALCIFEROL) TABLET PO SCH (08:13)
[2018-04-05] MEDS: SENNA W/DOCUSATE (SENOKOT S) TABLET PO SCH ×2 (08:13→20:25)
[2018-04-05] MEDS: ASPIRIN E.C. 81 MG (ECOTRIN) TAB PO SCH (08:13)
[2018-04-05] MEDS: FAMOTIDINE 20 MG (PEPCID) TABLET PO SCH ×2 (08:13→20:25)
--- NOTE | 2018-04-05 08:56 | PM & R (SOAP) Progress Note ---
Subjective This was a face to face visit with the patient. Date Seen by Provider: Apr 05, 2018 Time Seen by Provider: 07:50 Subjective/Events-last exam Patient was seen in her room this AM Patient Min assist for transfers remains on 4 liters 02 by N/C Objective Physician Exam Last Set of Vital Signs Vital Signs Date Time Temp Pulse Resp B/P (MAP) Pulse Ox O2 Delivery O2 Flow Rate FiO2 04/05/18 06:47 95 Nasal Cannula 4.00 04/05/18 05:08 98.7 100 18 134/64 (87) Capillary Refill : I&O Intake and Output 04/04/18 23:59 Intake Total 1390 ml Balance 1390 ml Intake Oral 1390 ml # Voids 5 # Urine Diapers 1 # Bowel Movements 2 General: Alert, Oriented X3, Cooperative, No Acute Distress HEENT: Atraumatic, PERRLA, EOMI, Mucous Memb Moist/[place], Other (02 by N/C in place) Neck: Supple, No JVD Lungs: Other (Decreased brath sounds at bases) Heart: Regular Rate Abdomen: Normal Bowel Sounds, Soft, No Tenderness Extremities: No Edema Skin: No Rashes, No Breakdown Neuro: Other (Generalized weakness) Psych/Mental Status: Mental Status NL Results Lab Data Laboratory Tests 04/03/18 06:36: White Blood Count 5.5, Red Blood Count 3.36L, Hemoglobin 10.8L, Hematocrit 34L, Mean Corpuscular Volume 100H, Mean Corpuscular Hemoglobin 32, Mean Corpuscular Hemoglobin Concent 32, Red Cell Distribution Width 14.8H, Platelet Count 383, Mean Platelet Volume 9.5, Neutrophils (%) (Auto) 67, Lymphocytes (%) (Auto) 19, Monocytes (%) (Auto) 12, Eosinophils (%) (Auto) 1, Basophils (%) (Auto) 1, Neutrophils # (Auto) 3.7, Lymphocytes # (Auto) 1.1, Monocytes # (Auto) 0.7, Eosinophils # (Auto) 0.1, Basophils # (Auto) 0.0, Sodium Level 140, Potassium Level 3.9, Chloride Level 103, Carbon Dioxide Level 24, Anion Gap 13, Blood Urea Nitrogen 11, Creatinine 0.70, Estimat Glomerular Filtration Rate > 60, BUN/ Creatinine Ratio 16, Glucose Level 171H, Calcium Level 8.9, Corrected Calcium 8.9, Total Bilirubin 0.5, Aspartate Amino Transf (AST/SGOT) 20, Alanine Aminotransferase (ALT/SGPT) 26, Alkaline Phosphatase 82, Total Protein 6.7, Albumin 4.0 Assessment/Plan Assessment and Plan general debil secondary to acute exacerbation of COPD Copd 02 dependent Obesity Hypothyroidism on replacement RLS on requip Depression on med DVT prophylaxis lovenox subcut Constipation treated Plan Continue Pt/OT F/U with DR Salvador Wean from 02 as able (1) COPD exacerbation Assessment & Plan: Wean from 02 as able back to maintenance of 2 liters Status: Acute Co-Morbidities that are continuing to impact the rehab process: (include details ) ANTONIETA RUBIO MD Apr 05, 2018 08:56
--- NOTE | 2018-04-05 09:26 | Speech Therapy Daily Note ---
Speech Daily Progress Note Subjective Date Seen by Provider: Apr 05, 2018 Time Seen by Provider: 00:30 Patient pleasant and cooperative. Objective Patient completed memory tasks related to naming objects by attributes with 80% accuracy given minimal cues, Communication Comprehension: 7 Expression: 7 Social Cognition Social Interaction: 7 Problem Solvin Memory: 7 Speech Short Term Goals Short Term Goals Short Term Goals Patient will demonstrate safety awareness within her living environment without cues. Speech [facility]itentiary Goals [place] Interpret[facility] Ranger Goals Patient will demonstrate safety and independence upon her release from this hospital for safe return home. Speech-Plan Patient/Family Goals Patient/Family Goals: Patient plans to return home with family support post rehab. Treatment Plan Speech Therapy Treatment Plan: Continue Plan of Care Patient is progressing well with memory and problem solving as her medical status improves. Treatment Duration: Apr 08, 2018 Frequency: Modified Program (IRF) Estimated Hrs Per Day: Other Rehab Potential: Good Barriers to Learning: Patient tires easily throughout the day. Pt/Family Agrees to Plan: Yes Safety Risks/Education Teaching Recipient: Patient Teaching Methods: Discussion Response to Teaching: Verbalize Understanding Education Topics Provided: Safety within her room. Time Speech Therapy Time In: 08:30 Speech Therapy Time Out: 09:00 Total Billed Time: 30 Billed Treatment Time 1, ALISON Navas Apr 05, 2018 09:26
--- NOTE | 2018-04-05 11:09 | Occupational Ther Daily Note ---
OT Current Status-Daily Note Subjective Pt was excited, she had woken up in the middle of the night and had her arms above her head. She mentioned this twice, she felt like it was a big improvement that she freely moved her arms in this manner. Appearance Pt in recliner, alert, and willing to work with OT. Mental Status/Objective Patient Orientation: Person, Place, Time, Situation Therapy Code Descriptions/Definitions Functional [place] Measure: 0=Not Assessed/NA 4=Minimal Assistance 1=Total Assistance 5=Supervision or Setup 2=Maximal Assistance 6=Modified [place] 3=Moderate Assistance 7=Complete [place] Attachments: Oxygen ADL-Treatment Therapy Code Descriptions/Definitions Functional [place] Measure: 0=Not Assessed/NA 4=Minimal Assistance 1=Total Assistance 5=Supervision or Setup 2=Maximal Assistance 6=Modified [place] 3=Moderate Assistance 7=Complete [place] Therapy Quality Codes: 6 Independent with activity with or without an assistive device 5 Patient requires set up or clean up by helper. Patient completes activity by themselves 4 Supervision or touching assist (CGA). [place] provide cues , steadying assist 3 The helper provides less than half the effort to complete the activity 2 The helper provides more than half the effort to complete the activity 1 Dependent. The helper does all the effort to complete an activity 7 Patient refused to complete or attempt activity 9 The patient did not perform the activity before the current illness or injury 88 Not attempted due to Medical conditions or safety concerns Grooming (FIM): 4 (Pt requires setup & verbal prompting while performing task of grooming in chair at sink side. ) Upper Body (FIM): 5 (Pt requires setup and SBA. Pt able to doff and don shirt with extended time requiring rest breaks and some cueing. ) Lower Body Dressing (FIM): 3 (Pt able to doff socks and undergarments while seated. Pt able to thread undergarments, but needed assist in threading with verbal cues for pants. Pt did not participate in donning socks due to fatigue. OT applied. ) Toileting (FIM): 3 (Pt requires assist in cleaning rear [place] area, but has made improvement in attempting to cleanse while at stance with FWW and grab bars. OT assisted in cleansing in rear [place] area. ) Transfers (B, C, W/C) (FIM): 5 (Pt is SBA in all transfers. ) Toilet/Commode Transfer (FIM): 5 (Pt SBA in toilet transfers, safety concerns for FWW placement. OT provided education. ) Pt improved technique of removing socks while seated with using R foot to pull off L sock, but then bending to complete task of removing sock off foot completely. Pt able to remove R sock with hands. This is an improvement from previous days. Pt started task of donning pants, was able to thread feet through pants. Pt stated that she needed to toilet and change undergarments. Pt removed pants from feet. Pt ambulated to bathroom for toileting with SBA. Pt able to doff undergarments and thread new pair to don a new pair. Pt attempted several times in donning pants, threading pant legs to find that pants were on backwards. Pt attempted task for 2nd time, but legs were in opposite pant legs. Pt stated that she was tired and didn't feel that she could complete task after several attempts. OT assisted in threading pants. Pt stood with use of FWW and grab bars and was able to pull undergarments and pants over hips needing only incidental assist in back for straightening. Pt transferred to chair to participate in grooming task at sink. Pt was able to participate in brushing teeth, combing hair and washing face with very few verbal cues which is an improvement from previous sessions. Other Treatment Pt ambulated to therapy gym with SBA. Pt participated in 10 min of arm bike activity tolerance on min resistance with no rest breaks throughout task. Pt took small rest break. Pt participated in activity of removing and replacing plastic rings on extended pegs to improve fine motor skills, hand/eye coordination and bilateral integration of UE. Pt had difficulty with pincher grasp to picking up plastic rings. Pt was able to stay on task with only taking a few short breaks before starting task again. Pt was able to replace rings on two of the pegs, before session was nearing end. Pt ambulated back to room. Pt transferred to recliner. All needs met with 4L O2 in place. Education OT Patient Education: Correct positioning, Energy conservation, Exercise program, Modified ADL techniques, Progress toward Goal/Update tx plan, Purpose of tx/functional activities, Reviewed precautions, Rehab process, Transfer techniques Teaching Recipient: Patient Teaching Methods: Demonstration, Discussion Response to Teaching: Verbalize Understanding, Return Demonstration OT Short Term Goals Short Term Goals Time Frame: Apr 16, 2018 Eating(FIM): 5 Grooming(FIM): 4 Bathing(FIM): 4 Upper Body Dressing(FIM): 4 Lower Body Dressing(FIM): 4 Toileting(FIM): 4 Transfers (B,C,W/C) (FIM): 4 Toilet/Commode Transfer(FIM): 4 Shower Transfer(FIM): 4 Additional Short Term Goals: 1-Demonstrate ADL Tasks, 2-Verbalize Understanding , 3-ImproveStrength/Yolanda 1=Demonstrate adherence to instructed precautions during ADL tasks. 2=Patient will verbalize/demonstrate understanding of assistive devices/ modifications for ADL. 3=Patient will improve strength/tolerance for activity to enable patient to perform ADL's. OT [facility] Consultant Goals [facility] Consultant Goals Time Frame: Apr 30, 2018 Eating (FIM): 6 Eating (QC): 6 Groomin Oral Hygiene (QC): 6 Bathing(FIM): 5 Shower/Bathe Self (QC): 5 Upper Body Dressing(FIM): 6 Upper Body Dressing (QC): 6 Lower Body Dressing(FIM): 5 Lower Body Dressing (QC): 5 On/Off Footwear (QC): 5 Toileting(FIM): 6 Toileting Hygiene (QC): 6 Transfers (B,C,W/C) (FIM): 6 Toilet/Commode Transfer(FIM): 6 Toilet/Commode Transfer (QC): 6 Shower Transfer(FIM): 5 Additional Goals: 1-Demonstrate ADL Tasks, 2-Verbalize Understanding, 3- ImproveStrength/Yolanda 1=Demonstrate adherence to instructed precautions during ADL tasks. 2=Patient will verbalize/demonstrate understanding of assistive devices/ modifications for ADL. 3=Patient will improve strength/tolerance for activity to enable patient to perform ADL's. OT Education/Plan Problem List/Assessment Assessment: Decreased Activ Tolerance, Decreased UE Strength, Impaired Cognition, Impaired Coordination, Impaired I ADL's, Impaired Self-Care Skills, Restricted Funct UE ROM Discharge Recommendations Plan/Recommendations: Continue POC Treatment Plan/Plan of Care Treatment,Training & Education: Yes Patient would benefit from OT for education, treatment and training to promote independence in ADL's, mobility, safety and/or upper extremity function for ADL' s. Plan of Care: ADL Retraining, Cognitive Retraining, Functional Mobility, Group Exercise/Act as Ind, UE Funct Exercise/Act Treatment Duration: Apr 30, 2018 Frequency: 5 times per week Estimated Hrs Per Day: 1.5 hours per day Agreement: Yes Rehab Potential: Good Time/GCodes Start Time: 09:15 Stop Time: 10:45 Total Time Billed (hr/min): 75 Billed Treatment Time 1, ADL x 45 minutes, EX x 20 minutes, FA x 10 minutes. JEFF BONILLA OT Apr 05, 2018 11:09
[2018-04-05] MEDS: ENOXAPARIN 40 MG/0.4 ML (LOVENOX) SYR SC SCH (11:49)
--- NOTE | 2018-04-05 12:03 | Physical Therapy Daily Note ---
PT Daily Note-Current Subjective Pt. explains that she is slowly getting stronger, states she is shocked at how quickly this illness took her down. Pain Numeric Pain Scale: 0-No Pain Mental Status Patient Orientation: Normal For Age Attachments: Oxygen (3-4L) Transfers Therapy Code Descriptions/Definitions Functional [place] Measure: 0=Not Assessed/NA 4=Minimal Assistance 1=Total Assistance 5=Supervision or Setup 2=Maximal Assistance 6=Modified [place] 3=Moderate Assistance 7=Complete [place] Therapy Quality Codes: 6 Independent with activity with or without an assistive device 5 Patient requires set up or clean up by helper. Patient completes activity by themselves 4 Supervision or touching assist (CGA). [place] provide cues , steadying assist 3 The helper provides less than half the effort to complete the activity 2 The helper provides more than half the effort to complete the activity 1 Dependent. The helper does all the effort to complete an activity 7 Patient refused to complete or attempt activity 9 The patient did not perform the activity before the current illness or injury 88 Not attempted due to Medical conditions or safety concerns Transfers (B, C, W/C) (FIM): 5 Scootin Rollin Supine to/from Sit: 5 Sit to/from Stand: 5 Weight Bearing Right Lower Extremity: Right Full Weight Bearing Left Lower Extremity: Left Full Weight Bearing Gait Training Does the Patient Walk?: Yes Gait (FIM): 4 Distance (FIM): 3=150 ft (150x3) Gait Level of Assist: 4 Gait Persons Needed: 1 Gait Assistive Device: FWW slow, CGA secondary to fatigue and assist for O2 3 L Stair Training Stair Training: Handrails/: 2 handrails #of Steps: 4 Stairs: Pattern: Step to Level of Assist: 4 up down pink step at parallel bars x 4 with CGA and instruction, pt. unwilling, lacks confidence to attempt stair/steps Exercises Supine Ex: Ankle pumps, Quad Set, Glut sets, Heel Slides, Straight leg raise, Hip abd/add Supine Reps: 15 Seated Therapy Exercises: Ankle pumps, Sit to stand, Long arc quads, Hip flexion, Hip abd/add Seated Reps: 10 Standing: Hip Abduction, Heel/toe raises, Marching, Mini squats Standing Reps: 12 NuStep Minutes: 15 NuStep Workload: 2 Assessment Current Status: Good Progress O2 sats on 4 L O2 after 140 ft gait 96%, Dr Salvador present and orders titrate to 3 L and check, pt. on 3 L at 90% then left on 3 L in room at rest with nursing advised of results PT Short Term Goals Short Term Goals Time Frame: Apr 09, 2018 Transfers (B,C,W/C) (FIM): 4 Gait (FIM): 2 Gait Distance Comment: 50' Gait Level of Assist: 4 Gait Assistive Device: FWW Wheelchair Distance: 20' PT [facility] Goals Stretch Box Tender Goals PT Stretch Box Tender Goals Time Frame: Apr 23, 2018 Transfers (B,C,W/C) (FIM): 5 Sit to Lying (QC): 4 Lying-Sitting on Side/Bed(QC): 4 Sit to Stand (QC): 4 Rollin Roll Left to Right (QC): 4 Chair/Vkh-sg-Zsltd Xfer(QC): 4 Car Transfer (QC): 4 Gait (FIM): 5 Distance: 150' Walk 10 feet (QC): 4 Walk 10ft-Uneven Surface(QC): 4 Walk 50ft with 2 Turns (QC): 4 Walk 150 ft (QC): 4 Gait Level of Assist: 5 Gait Assistive Device: FWW Wheelchair (FIM): 5 Distance: 150' Wheelchair Level of Assist: 5 Wheel 50 feet with 2 turns (QC: 4 Stairs (FIM): 2 # of Steps: 4 1 Step (curb) (QC): 4 4 Steps (QC): 4 12 Steps (QC): 4 Stairs Level Of Assist: 4 PT Plan Treatment/Plan Treatment Plan: Continue Plan of Care Treatment Plan: Bed Mobility, Concurrent Therapy, Education, Functional Activity Yolanda, Functional Strength, Group Therapy, Gait, Safety, Therapeutic Exercise, Transfers Treatment Duration: Apr 23, 2018 Frequency: At least 5 of 7 days/Wk (IRF) Estimated Hrs Per Day: 1.5 hours per day Patient and/or Family Agrees t: Yes Safety Risks/Education Patient Education: Gait Training, Transfer Techniques, Steps Teaching Recipient: Patient Teaching Methods: Demonstration, Discussion Response to Teaching: Verbalize Understanding, Return Demonstration, Reinforcement Needed Time/GCodes Time In: 1045 Time Out: 1200 Total Billed Treatment Time: 75 Total Billed Treatment 1,EX30m,GT25m,FA20 G Codes Necessary: LIDA Rosado HEEL BOOM OPERATOR Apr 05, 2018 12:03
--- NOTE | 2018-04-05 12:35 | Progress Note (SOAP) ---
Subjective Date Seen by a Provider: Apr 05, 2018 Time Seen by a Provider: 12:34 Subjective/Events-last exam Fwup recent pneumonia with sepsis and respiratory failure, COPD, weakness. Currently up working with PT. Objective Exam Vital Signs Date Time Temp Pulse Resp B/P (MAP) Pulse Ox O2 Delivery O2 Flow Rate FiO2 04/05/18 09:00 Nasal Cannula 4.00 04/05/18 06:47 95 Nasal Cannula 4.00 04/05/18 05:08 98.7 100 18 134/64 (87) 97 Nasal Cannula 4.00 04/04/18 21:12 Nasal Cannula 4.00 04/04/18 19:53 95 Nasal Cannula 4.00 04/04/18 18:33 98.6 86 18 120/76 (91) 97 Nasal Cannula 4.00 I & O 04/05/18 07:00 Intake Total 1440 ml Balance 1440 ml Capillary Refill : General Appearance: No Apparent Distress Neck: Supple Respiratory: Lungs Clear, Decreased Breath Sounds Cardiovascular: Regular Rate, Rhythm Gastrointestinal: normal bowel sounds, non tender, soft Extremity: Non Tender, No Calf Tenderness, No Pedal Edema Neurologic/Psychiatric: Alert, Oriented x3 Assessment/Plan Assessment/Plan Assess & Plan/Chief Complaint 1. Recent pneumonia with sepsis and respiratory failure--on oxygen at 4liters and on prednisone taper as well as home inhalers, will try to decrease oxygen to 3L 2. Weakness--PT and OT 3. COPD with recent acute exacerbation--on steroid taper 4. Depression--zoloft resumed 5. Hypothyroidism--home levothyroxine resumed 6. Constipation--improved 7. Acute Anemia---added MV with iron Clinical Quality Measures DVT/VTE Risk/Contraindication: Risk Factor Score Per Nursin RFS Level Per Nursing on Admit: 4+=Very High AMEYA PEREZ DO Apr 05, 2018 12:35 pm
[2018-04-05 17:50] VITALS: BP 105/67
[2018-04-05] MEDS: SERTRALINE 50 MG (ZOLOFT) TABLET PO SCH (20:24)
[2018-04-05] MEDS: ATORVASTATIN 40 MG (LIPITOR) TABLET PO SCH (20:24)
[2018-04-05] MEDS: MONTELUKAST 10 MG (SINGULAIR) TAB PO SCH (20:25)
[2018-04-05] MEDS: rOPINIRole 0.25 MG (REQUIP) TAB PO SCH (20:25)
[2018-04-06] MEDS: RT-ADVAIR HFA 115/21 MCG PER PUFF IH SCH ×3 (00:02→19:37)
[2018-04-06] MEDS: RT-ALBUTEROL/IPRATROPIUM 3 ML (DUONEB) VIAL INH SCH ×4 (00:03→19:37)
[2018-04-06 05:04] VITALS: BP 120/75
[2018-04-06] MEDS: LACTOBACILLUS Acidoph/Bulgar 1 GM (LACTINEX) PACKET PO SCH ×4 (06:22→21:01)
[2018-04-06] MEDS: LEVOTHYROXINE 112 MCG (LEVOTHROID) TAB PO SCH (06:22)
[2018-04-06] MEDS: MULTIVIT W/MINERALS TAB (THERAGRAN M) PO SCH (06:22)
[2018-04-06] MEDS: LORATADINE (CLARITIN) 10 MG TAB PO SCH (09:12)
[2018-04-06] MEDS: ASPIRIN E.C. 81 MG (ECOTRIN) TAB PO SCH (09:12)
[2018-04-06] MEDS: FAMOTIDINE 20 MG (PEPCID) TABLET PO SCH ×2 (09:12→21:01)
[2018-04-06] MEDS: VITAMIN D3 1,000 UNITS (CHOLECALCIFEROL) TABLET PO SCH (09:12)
--- NOTE | 2018-04-06 09:20 | Occupational Ther Daily Note ---
OT Current Status-Daily Note Subjective Pt alert and oriented upon therapist arrival. Pt willing to work with OT this date, and stated that she would like a shower. Pain Numeric Pain Scale: 0-No Pain Mental Status/Objective Therapy Code Descriptions/Definitions Functional [place] Measure: 0=Not Assessed/NA 4=Minimal Assistance 1=Total Assistance 5=Supervision or Setup 2=Maximal Assistance 6=Modified [place] 3=Moderate Assistance 7=Complete [place] Attachments: Oxygen ADL-Treatment Therapy Code Descriptions/Definitions Functional [place] Measure: 0=Not Assessed/NA 4=Minimal Assistance 1=Total Assistance 5=Supervision or Setup 2=Maximal Assistance 6=Modified [place] 3=Moderate Assistance 7=Complete [place] Therapy Quality Codes: 6 Independent with activity with or without an assistive device 5 Patient requires set up or clean up by helper. Patient completes activity by themselves 4 Supervision or touching assist (CGA). [place] provide cues , steadying assist 3 The helper provides less than half the effort to complete the activity 2 The helper provides more than half the effort to complete the activity 1 Dependent. The helper does all the effort to complete an activity 7 Patient refused to complete or attempt activity 9 The patient did not perform the activity before the current illness or injury 88 Not attempted due to Medical conditions or safety concerns Grooming (FIM): 5 (SBA required with pt standing at sink for grooming/hygiene, however pt required frequent seated rest breaks and increased time for tasks. ) Bathing (FIM): 4 (Pt required Jolly for bathing tasks to cleanse buttocks region and to thoroughly rinse hair. Increased time and frequent rest breaks needed) Upper Body (FIM): 4 (Jolly to fasten bra. ) Lower Body Dressing (FIM): 3 (ModA for LBD including assistance for threading feet and managing pants over buttocks. Increased time and verbal cues to maintain attention to task required. ) Toileting (FIM): 4 (Jolly for thoroughness of cleaning buttocks region. ) Toilet/Commode Transfer (FIM): 4 (CGA required. ) Shower Transfer(FIM): 4 (CGA required. ) Other Treatment Pt required frequent verbal cues to maintain attention to task, as she became distracted easily. All self cares required significantly increased time with frequent rest breaks required. Completed standing tasks in bedroom with FWW and SBA with focus on improving pt's ability to maintain standing balance for increased periods of time. 02 monitored with pt remaining at levels of 93-95%. Education OT Patient Education: Energy conservation, Modified ADL techniques, Use of adapted equipment Teaching Recipient: Patient Teaching Methods: Demonstration, Discussion Response to Teaching: Return Demonstration, Reinforcement Needed OT Short Term Goals Short Term Goals Time Frame: Apr 16, 2018 Eating(FIM): 5 Grooming(FIM): 4 Bathing(FIM): 4 Upper Body Dressing(FIM): 4 Lower Body Dressing(FIM): 4 Toileting(FIM): 4 Transfers (B,C,W/C) (FIM): 4 Toilet/Commode Transfer(FIM): 4 Shower Transfer(FIM): 4 Additional Short Term Goals: 1-Demonstrate ADL Tasks, 2-Verbalize Understanding , 3-ImproveStrength/Yolanda 1=Demonstrate adherence to instructed precautions during ADL tasks. 2=Patient will verbalize/demonstrate understanding of assistive devices/ modifications for ADL. 3=Patient will improve strength/tolerance for activity to enable patient to perform ADL's. OT Environment Artist Goals Environment Artist Goals Time Frame: Apr 30, 2018 Eating (FIM): 6 Eating (QC): 6 Groomin Oral Hygiene (QC): 6 Bathing(FIM): 5 Shower/Bathe Self (QC): 5 Upper Body Dressing(FIM): 6 Upper Body Dressing (QC): 6 Lower Body Dressing(FIM): 5 Lower Body Dressing (QC): 5 On/Off Footwear (QC): 5 Toileting(FIM): 6 Toileting Hygiene (QC): 6 Transfers (B,C,W/C) (FIM): 6 Toilet/Commode Transfer(FIM): 6 Toilet/Commode Transfer (QC): 6 Shower Transfer(FIM): 5 Additional Goals: 1-Demonstrate ADL Tasks, 2-Verbalize Understanding, 3- ImproveStrength/Yolanda 1=Demonstrate adherence to instructed precautions during ADL tasks. 2=Patient will verbalize/demonstrate understanding of assistive devices/ modifications for ADL. 3=Patient will improve strength/tolerance for activity to enable patient to perform ADL's. OT Education/Plan Discharge Recommendations Plan/Recommendations: Continue POC Treatment Plan/Plan of Care Patient would benefit from OT for education, treatment and training to promote independence in ADL's, mobility, safety and/or upper extremity function for ADL' s. Plan of Care: ADL Retraining, Cognitive Retraining, Functional Mobility, Group Exercise/Act as Ind, UE Funct Exercise/Act Treatment Duration: Apr 30, 2018 Frequency: 5 times per week Estimated Hrs Per Day: 1.5 hours per day Agreement: Yes Rehab Potential: Good Time/GCodes Start Time: 07:40 Stop Time: 09:15 Billed Treatment Time 1, FA2, ADL4 DELMY BENTON OT Apr 06, 2018 09:20
[2018-04-06] MEDS: SENNA W/DOCUSATE (SENOKOT S) TABLET PO SCH ×2 (09:56→21:02)
--- NOTE | 2018-04-06 11:11 | Physical Therapy Daily Note ---
PT Daily Note-Current Subjective Pt. up in chair upon arrival and agrees to therapy. She states she is improving ; denies pain. Mental Status Patient Orientation: Normal For Age Transfers Therapy Code Descriptions/Definitions Functional [place] Measure: 0=Not Assessed/NA 4=Minimal Assistance 1=Total Assistance 5=Supervision or Setup 2=Maximal Assistance 6=Modified [place] 3=Moderate Assistance 7=Complete [place] Therapy Quality Codes: 6 Independent with activity with or without an assistive device 5 Patient requires set up or clean up by helper. Patient completes activity by themselves 4 Supervision or touching assist (CGA). [place] provide cues , steadying assist 3 The helper provides less than half the effort to complete the activity 2 The helper provides more than half the effort to complete the activity 1 Dependent. The helper does all the effort to complete an activity 7 Patient refused to complete or attempt activity 9 The patient did not perform the activity before the current illness or injury 88 Not attempted due to Medical conditions or safety concerns Transfers (B, C, W/C) (FIM): 5 Sit to Stand (QC): 5 Weight Bearing Right Lower Extremity: Right Full Weight Bearing Left Lower Extremity: Left Full Weight Bearing Gait Training Does the Patient Walk?: Yes Gait (FIM): 5 Distance (FIM): 3=150 ft Distance: 200 ft Walk 150 ft (QC): 5 Gait Level of Assist: 5 Gait Persons Needed: 1 Gait Assistive Device: FWW slow gait but steady Exercises Seated Therapy Exercises: Ankle pumps, Sit to stand, Shoulder Flex, Long arc quads, Hip flexion, Hamstring Curls, Hip abd/add Seated Reps: 20 (2 x 10 reps) Standing: Hip Abduction, Hamstring curls, Heel/toe raises, Marching, Mini squats, Sit to Stand, Side steps Standing Reps: 10 Narrow WALTER on AirEx x 30 sec NuStep Minutes: 15 NuStep Workload: 4 Treatments exercise, gait Assessment Current Status: Good Progress Pt. required several periods of seated rest due to fatigue and SOA. She completed 10-20 reps of several upper and lower body exercises through full ROM. Pt. is steady with gait but is limited due to fatigue. Pt. returned to bedside chair post session with call light and all needs met. PT Short Term Goals Short Term Goals Time Frame: Apr 09, 2018 Transfers (B,C,W/C) (FIM): 4 Gait (FIM): 2 Gait Distance Comment: 50' Gait Level of Assist: 4 Gait Assistive Device: FWW Wheelchair Distance: 20' PT Arboreal Scientist Goals Arboreal Scientist Goals PT Arboreal Scientist Goals Time Frame: Apr 23, 2018 Transfers (B,C,W/C) (FIM): 5 Sit to Lying (QC): 4 Lying-Sitting on Side/Bed(QC): 4 Sit to Stand (QC): 4 Rollin Roll Left to Right (QC): 4 Chair/Hsn-jl-Tnpxx Xfer(QC): 4 Car Transfer (QC): 4 Gait (FIM): 5 Distance: 150' Walk 10 feet (QC): 4 Walk 10ft-Uneven Surface(QC): 4 Walk 50ft with 2 Turns (QC): 4 Walk 150 ft (QC): 4 Gait Level of Assist: 5 Gait Assistive Device: FWW Wheelchair (FIM): 5 Distance: 150' Wheelchair Level of Assist: 5 Wheel 50 feet with 2 turns (QC: 4 Stairs (FIM): 2 # of Steps: 4 1 Step (curb) (QC): 4 4 Steps (QC): 4 12 Steps (QC): 4 Stairs Level Of Assist: 4 PT Plan Treatment/Plan Treatment Plan: Continue Plan of Care Treatment Plan: Bed Mobility, Concurrent Therapy, Education, Functional Activity Yolanda, Functional Strength, Group Therapy, Gait, Safety, Therapeutic Exercise, Transfers Treatment Duration: Apr 23, 2018 Frequency: At least 5 of 7 days/Wk (IRF) Estimated Hrs Per Day: 1.5 hours per day Patient and/or Family Agrees t: Yes Time/GCodes Time In: 930 Time Out: 1100 Total Billed Treatment Time: 90 Total Billed Treatment 1, GT 15', Ex 75' JAMA INGRAM PT Apr 06, 2018 11:11
[2018-04-06] MEDS: ENOXAPARIN 40 MG/0.4 ML (LOVENOX) SYR SC SCH (12:21)
[2018-04-06 17:55] VITALS: BP 96/60
[2018-04-06] MEDS: SERTRALINE 50 MG (ZOLOFT) TABLET PO SCH (21:01)
[2018-04-06] MEDS: ATORVASTATIN 40 MG (LIPITOR) TABLET PO SCH (21:01)
[2018-04-06] MEDS: MONTELUKAST 10 MG (SINGULAIR) TAB PO SCH (21:01)
[2018-04-06] MEDS: rOPINIRole 0.25 MG (REQUIP) TAB PO SCH (21:01)
[2018-04-07 05:13] VITALS: BP 135/79
[2018-04-07] MEDS: LACTOBACILLUS Acidoph/Bulgar 1 GM (LACTINEX) PACKET PO SCH ×5 (06:17→23:58)
[2018-04-07] MEDS: MULTIVIT W/MINERALS TAB (THERAGRAN M) PO SCH (06:25)
[2018-04-07] MEDS: LEVOTHYROXINE 112 MCG (LEVOTHROID) TAB PO SCH (06:25)
[2018-04-07] MEDS: RT-ALBUTEROL/IPRATROPIUM 3 ML (DUONEB) VIAL INH SCH ×3 (08:26→19:17)
[2018-04-07] MEDS: RT-ADVAIR HFA 115/21 MCG PER PUFF IH SCH ×2 (08:27→19:17)
[2018-04-07] MEDS: SENNA W/DOCUSATE (SENOKOT S) TABLET PO SCH ×2 (08:49→19:30)
[2018-04-07] MEDS: VITAMIN D3 1,000 UNITS (CHOLECALCIFEROL) TABLET PO SCH (08:49)
[2018-04-07] MEDS: FAMOTIDINE 20 MG (PEPCID) TABLET PO SCH ×2 (08:49→20:25)
[2018-04-07] MEDS: LORATADINE (CLARITIN) 10 MG TAB PO SCH (08:49)
[2018-04-07] MEDS: ASPIRIN E.C. 81 MG (ECOTRIN) TAB PO SCH (08:49)
[2018-04-07] MEDS: ENOXAPARIN 40 MG/0.4 ML (LOVENOX) SYR SC SCH (12:04)
[2018-04-07 17:55] VITALS: BP 146/56
[2018-04-07] MEDS: ATORVASTATIN 40 MG (LIPITOR) TABLET PO SCH (20:24)
[2018-04-07] MEDS: rOPINIRole 0.25 MG (REQUIP) TAB PO SCH (20:25)
[2018-04-07] MEDS: SERTRALINE 50 MG (ZOLOFT) TABLET PO SCH (20:25)
[2018-04-07] MEDS: MONTELUKAST 10 MG (SINGULAIR) TAB PO SCH (20:25)
[2018-04-08] MEDS: MULTIVIT W/MINERALS TAB (THERAGRAN M) PO SCH (06:06)
[2018-04-08] MEDS: LEVOTHYROXINE 112 MCG (LEVOTHROID) TAB PO SCH (06:06)
[2018-04-08 06:08] VITALS: BP 112/53
[2018-04-08] MEDS: RT-ALBUTEROL/IPRATROPIUM 3 ML (DUONEB) VIAL INH SCH ×3 (07:51→20:02)
[2018-04-08] MEDS: RT-ADVAIR HFA 115/21 MCG PER PUFF IH SCH ×2 (07:51→20:02)
[2018-04-08] MEDS: VITAMIN D3 1,000 UNITS (CHOLECALCIFEROL) TABLET PO SCH (08:06)
[2018-04-08] MEDS: SENNA W/DOCUSATE (SENOKOT S) TABLET PO SCH ×2 (08:06→20:24)
[2018-04-08] MEDS: ASPIRIN E.C. 81 MG (ECOTRIN) TAB PO SCH (08:06)
[2018-04-08] MEDS: FAMOTIDINE 20 MG (PEPCID) TABLET PO SCH ×2 (08:06→20:28)
[2018-04-08] MEDS: LORATADINE (CLARITIN) 10 MG TAB PO SCH (08:06)
--- NOTE | 2018-04-08 10:09 | Physical Therapy Daily Note ---
PT Daily Note-Current Subjective Patient in bed pre tx, agrees to PT, no complaints of pain. Appearance Patient in recliner post tx with nurse call, phone, tray, chair alarm on. Mental Status Patient Orientation: Person, Place Attachments: Oxygen Transfers Therapy Code Descriptions/Definitions Functional [place] Measure: 0=Not Assessed/NA 4=Minimal Assistance 1=Total Assistance 5=Supervision or Setup 2=Maximal Assistance 6=Modified [place] 3=Moderate Assistance 7=Complete [place] Therapy Quality Codes: 6 Independent with activity with or without an assistive device 5 Patient requires set up or clean up by helper. Patient completes activity by themselves 4 Supervision or touching assist (CGA). [place] provide cues , steadying assist 3 The helper provides less than half the effort to complete the activity 2 The helper provides more than half the effort to complete the activity 1 Dependent. The helper does all the effort to complete an activity 7 Patient refused to complete or attempt activity 9 The patient did not perform the activity before the current illness or injury 88 Not attempted due to Medical conditions or safety concerns Transfers (B, C, W/C) (FIM): 5 Scootin Rollin Supine to/from Sit: 6 Sit to/from Stand: 5 Bed to/from Chair: 5 Patient needs cues for hand placement and safety. Weight Bearing Right Lower Extremity: Right Full Weight Bearing Left Lower Extremity: Left Full Weight Bearing Gait Training Gait (FIM): 5 Distance: 150'x2 Gait Level of Assist: 5 Gait Persons Needed: 1 Gait Assistive Device: FWW Slow but steady ambulation. Exercises Standing: Hamstring curls, Heel/toe raises, 3 way Ex=Flex, Abd, Ext, Marching, Mini squats Standing Reps: 15 NuStep Minutes: 15 NuStep Workload: 3 Treatments bed mobility and transfers, ambulation, functional strengthening Assessment Current Status: Fair Progress improving endurance and bed mobility PT Short Term Goals Short Term Goals Time Frame: Apr 09, 2018 Transfers (B,C,W/C) (FIM): 4 Gait (FIM): 2 Gait Distance Comment: 50' Gait Level of Assist: 4 Gait Assistive Device: FWW Wheelchair Distance: 20' PT Senior Living Goals Net Programmer Analyst Goals PT Senior Living Goals Time Frame: Apr 23, 2018 Transfers (B,C,W/C) (FIM): 5 Sit to Lying (QC): 4 Lying-Sitting on Side/Bed(QC): 4 Sit to Stand (QC): 4 Rollin Roll Left to Right (QC): 4 Chair/Rhr-vs-Uvqae Xfer(QC): 4 Car Transfer (QC): 4 Gait (FIM): 5 Distance: 150' Walk 10 feet (QC): 4 Walk 10ft-Uneven Surface(QC): 4 Walk 50ft with 2 Turns (QC): 4 Walk 150 ft (QC): 4 Gait Level of Assist: 5 Gait Assistive Device: FWW Wheelchair (FIM): 5 Distance: 150' Wheelchair Level of Assist: 5 Wheel 50 feet with 2 turns (QC: 4 Stairs (FIM): 2 # of Steps: 4 1 Step (curb) (QC): 4 4 Steps (QC): 4 12 Steps (QC): 4 Stairs Level Of Assist: 4 PT Plan Problem List Problem List: Activity Tolerance, Functional Strength, Safety, Balance, Gait, Transfer, Bed Mobility Treatment/Plan Treatment Plan: Continue Plan of Care Treatment Plan: Bed Mobility, Concurrent Therapy, Education, Functional Activity Yolanda, Functional Strength, Group Therapy, Gait, Safety, Therapeutic Exercise, Transfers Treatment Duration: Apr 23, 2018 Frequency: At least 5 of 7 days/Wk (IRF) Estimated Hrs Per Day: 1.5 hours per day Patient and/or Family Agrees t: Yes Safety Risks/Education Patient Education: Gait Training, Transfer Techniques, Correct Positioning, Safety Issues Teaching Recipient: Patient Teaching Methods: Demonstration, Discussion Response to Teaching: Reinforcement Needed Time/GCodes Time In: 0900 Time Out: 1000 Total Billed Treatment Time: 60 Total Billed Treatment 1 visit GT 20' EX 40' SASHA MCCORD PT Apr 08, 2018 10:09
--- NOTE | 2018-04-08 10:15 | Speech Therapy Daily Note ---
Speech Daily Progress Note Subjective Date Seen by Provider: Apr 08, 2018 Time Seen by Provider: 00:30 Patient awake and alert this morning with good participation, Assessment Assessment Current Status: Good Progress Treatment Plan Continue Plan of Care Communication Comprehension: 7 Expression: 7 Social Cognition Social Interaction: 7 Problem Solvin Memory: 7 Speech Short Term Goals Short Term Goals Short Term Goals Patient will demonstrate safety awareness within her living environment without cues. Speech Air Crew Supervisor Goals Air Crew Supervisor Goals Patient will demonstrate safety and independence upon her release from this hospital for safe return home. Speech-Plan Patient/Family Goals Patient/Family Goals: Patient plans to return home with family support as soon as she is able. Treatment Plan Speech Therapy Treatment Plan: Continue Plan of Care Patient has made significant progress. Treatment Duration: Apr 08, 2018 Frequency: Modified Program (IRF) Estimated Hrs Per Day: Other Rehab Potential: Good Barriers to Learning: Patient tires easily with activities. Pt/Family Agrees to Plan: Yes Safety Risks/Education Teaching Recipient: Patient Teaching Methods: Discussion Response to Teaching: Verbalize Understanding Education Topics Provided: Safety within her immediate environment. Time Speech Therapy Time In: 08:30 Speech Therapy Time Out: 09:00 Total Billed Time: 30 Billed Treatment Time 1, ALISON Navas Apr 08, 2018 10:15
[2018-04-08] MEDS: ENOXAPARIN 40 MG/0.4 ML (LOVENOX) SYR SC SCH (10:31)
[2018-04-08] MEDS: LACTOBACILLUS Acidoph/Bulgar 1 GM (LACTINEX) PACKET PO SCH ×4 (10:32→20:34)
--- NOTE | 2018-04-08 11:49 | Physical Therapy Daily Note ---
PT Daily Note-Current Subjective Patient in recliner pre tx, agrees to PT, no complaints of pain. Appearance Patient in recliner post tx with nurse call, phone, tray, chair alarm on. Mental Status Patient Orientation: Person, Place Attachments: Oxygen Transfers Therapy Code Descriptions/Definitions Functional [place] Measure: 0=Not Assessed/NA 4=Minimal Assistance 1=Total Assistance 5=Supervision or Setup 2=Maximal Assistance 6=Modified [place] 3=Moderate Assistance 7=Complete [place] Therapy Quality Codes: 6 Independent with activity with or without an assistive device 5 Patient requires set up or clean up by helper. Patient completes activity by themselves 4 Supervision or touching assist (CGA). [place] provide cues , steadying assist 3 The helper provides less than half the effort to complete the activity 2 The helper provides more than half the effort to complete the activity 1 Dependent. The helper does all the effort to complete an activity 7 Patient refused to complete or attempt activity 9 The patient did not perform the activity before the current illness or injury 88 Not attempted due to Medical conditions or safety concerns Transfers (B, C, W/C) (FIM): 6 Sit to/from Stand: 6 Bed to/from Chair: 6 Weight Bearing Right Lower Extremity: Right Full Weight Bearing Left Lower Extremity: Left Full Weight Bearing Gait Training Gait (FIM): 5 Distance: 150'x2 Gait Level of Assist: 5 Gait Persons Needed: 1 Gait Assistive Device: FWW Slow but steady ambulation. Rest break between bouts of ambulation. Treatments transfers, ambulation Assessment Current Status: Fair Progress improving endurance and ambulation PT Short Term Goals Short Term Goals Time Frame: Apr 09, 2018 Transfers (B,C,W/C) (FIM): 4 Gait (FIM): 2 Gait Distance Comment: 50' Gait Level of Assist: 4 Gait Assistive Device: FWW Wheelchair Distance: 20' PT Care Home Goals Program Director/Traffic Director Goals PT Program Director/Traffic Director Goals Time Frame: Apr 23, 2018 Transfers (B,C,W/C) (FIM): 5 Sit to Lying (QC): 4 Lying-Sitting on Side/Bed(QC): 4 Sit to Stand (QC): 4 Rollin Roll Left to Right (QC): 4 Chair/Eyq-dt-Svmzh Xfer(QC): 4 Car Transfer (QC): 4 Gait (FIM): 5 Distance: 150' Walk 10 feet (QC): 4 Walk 10ft-Uneven Surface(QC): 4 Walk 50ft with 2 Turns (QC): 4 Walk 150 ft (QC): 4 Gait Level of Assist: 5 Gait Assistive Device: FWW Wheelchair (FIM): 5 Distance: 150' Wheelchair Level of Assist: 5 Wheel 50 feet with 2 turns (QC: 4 Stairs (FIM): 2 # of Steps: 4 1 Step (curb) (QC): 4 4 Steps (QC): 4 12 Steps (QC): 4 Stairs Level Of Assist: 4 PT Plan Problem List Problem List: Activity Tolerance, Functional Strength, Safety, Balance, Gait, Transfer, Bed Mobility Treatment/Plan Treatment Plan: Continue Plan of Care Treatment Plan: Bed Mobility, Concurrent Therapy, Education, Functional Activity Yolanda, Functional Strength, Group Therapy, Gait, Safety, Therapeutic Exercise, Transfers Treatment Duration: Apr 23, 2018 Frequency: At least 5 of 7 days/Wk (IRF) Estimated Hrs Per Day: 1.5 hours per day Patient and/or Family Agrees t: Yes Safety Risks/Education Patient Education: Gait Training, Transfer Techniques, Correct Positioning, Safety Issues Teaching Recipient: Patient Teaching Methods: Demonstration, Discussion Response to Teaching: Reinforcement Needed Time/GCodes Time In: 1133 Time Out: 1148 Total Billed Treatment Time: 15 Total Billed Treatment 1 visit GT 15' SASHA MCCORD PT Apr 08, 2018 11:49
--- NOTE | 2018-04-08 12:01 | Occupational Ther Daily Note ---
OT Current Status-Daily Note Subjective Pt stated that she had a nice weekend, got some rest and feels like she is improving daily. Appearance Pt in recliner, alert, and willing to work with OT. Mental Status/Objective Patient Orientation: Person, Place, Time, Situation Therapy Code Descriptions/Definitions Functional [place] Measure: 0=Not Assessed/NA 4=Minimal Assistance 1=Total Assistance 5=Supervision or Setup 2=Maximal Assistance 6=Modified [place] 3=Moderate Assistance 7=Complete [place] Attachments: Oxygen ADL-Treatment Therapy Code Descriptions/Definitions Functional [place] Measure: 0=Not Assessed/NA 4=Minimal Assistance 1=Total Assistance 5=Supervision or Setup 2=Maximal Assistance 6=Modified [place] 3=Moderate Assistance 7=Complete [place] Therapy Quality Codes: 6 Independent with activity with or without an assistive device 5 Patient requires set up or clean up by helper. Patient completes activity by themselves 4 Supervision or touching assist (CGA). [place] provide cues , steadying assist 3 The helper provides less than half the effort to complete the activity 2 The helper provides more than half the effort to complete the activity 1 Dependent. The helper does all the effort to complete an activity 7 Patient refused to complete or attempt activity 9 The patient did not perform the activity before the current illness or injury 88 Not attempted due to Medical conditions or safety concerns Grooming (FIM): 4 (Pt able to brush teeth sinkside with SBA. Pt requires chair to comb hair unable to complete task due to fatique. OT assists. ) Bathing (FIM): 5 (Pt able to wash all body parts leaning over to side to wash buttocks. SBA and min verbal cues for sequencing. ) Upper Body (FIM): 4 (Pt requires assist to fasten bra, turn it around and thread arms. Pt able to doff and don shirt SBA while seated. ) Lower Body Dressing (FIM): 4 (Pt able to doff undergarments, socks, and pants while on toilet. Pt has difficulty threading pants, with extended time is able to don undergarments and pants, standing at grab bars to pull up over hips. Pt uses sock aid to don slipper socks while seated. ) Toileting (FIM): 5 (Pt able to toilet SBA. ) Transfers (B, C, W/C) (FIM): 5 (Pt transfers using walker with SBA. ) Toilet/Commode Transfer (FIM): 5 (Pt transfers SBA. ) Shower Transfer(FIM): 5 (Pt transfers SBA. ) Pt participates in shower with use of shower bench, hand held shower sprayer, and grab bars. Pt requires fewer verbal cues from previous treatments. Pt able to move from one task to another, completing task before moving to next. Pt fatigues and becomes slower in movement but has reduced the amount of time from previous sessions for same tasks. Pt brushes teeth in stance at sink side instead on seated for first time, requires chair to continue combing hair. Pt ambulates SBA to therapy laundry room to participate in washing her laundry. Pt. able to put laundry in but required cues to start washing machine. Pt returns to room, transfers to recliner with all needs met with 3 L O2. Education OT Patient Education: Energy conservation, Exercise program, Modified ADL techniques, Progress toward Goal/Update tx plan, Purpose of tx/functional activities, Rehab process, Transfer techniques, Use of adapted equipment Teaching Recipient: Patient Teaching Methods: Demonstration, Discussion Response to Teaching: Verbalize Understanding, Return Demonstration OT Short Term Goals Short Term Goals Time Frame: Apr 16, 2018 Eating(FIM): 5 Grooming(FIM): 4 Bathing(FIM): 4 Upper Body Dressing(FIM): 4 Lower Body Dressing(FIM): 4 Toileting(FIM): 4 Transfers (B,C,W/C) (FIM): 4 Toilet/Commode Transfer(FIM): 4 Shower Transfer(FIM): 4 Additional Short Term Goals: 1-Demonstrate ADL Tasks, 2-Verbalize Understanding , 3-ImproveStrength/Yolanda 1=Demonstrate adherence to instructed precautions during ADL tasks. 2=Patient will verbalize/demonstrate understanding of assistive devices/ modifications for ADL. 3=Patient will improve strength/tolerance for activity to enable patient to perform ADL's. OT Retirement Goals Retirement Goals Time Frame: Apr 30, 2018 Eating (FIM): 6 Eating (QC): 6 Groomin Oral Hygiene (QC): 6 Bathing(FIM): 5 Shower/Bathe Self (QC): 5 Upper Body Dressing(FIM): 6 Upper Body Dressing (QC): 6 Lower Body Dressing(FIM): 5 Lower Body Dressing (QC): 5 On/Off Footwear (QC): 5 Toileting(FIM): 6 Toileting Hygiene (QC): 6 Transfers (B,C,W/C) (FIM): 6 Toilet/Commode Transfer(FIM): 6 Toilet/Commode Transfer (QC): 6 Shower Transfer(FIM): 5 Additional Goals: 1-Demonstrate ADL Tasks, 2-Verbalize Understanding, 3- ImproveStrength/Yolanda 1=Demonstrate adherence to instructed precautions during ADL tasks. 2=Patient will verbalize/demonstrate understanding of assistive devices/ modifications for ADL. 3=Patient will improve strength/tolerance for activity to enable patient to perform ADL's. OT Education/Plan Problem List/Assessment Assessment: Decreased Activ Tolerance, Decreased UE Strength, Impaired I ADL's , Impaired Self-Care Skills, Restricted Funct UE ROM Discharge Recommendations Plan/Recommendations: Continue POC Treatment Plan/Plan of Care Treatment,Training & Education: Yes Patient would benefit from OT for education, treatment and training to promote independence in ADL's, mobility, safety and/or upper extremity function for ADL' s. Plan of Care: ADL Retraining, Cognitive Retraining, Functional Mobility, Group Exercise/Act as Ind, UE Funct Exercise/Act Treatment Duration: Apr 30, 2018 Frequency: 5 times per week Estimated Hrs Per Day: 1.5 hours per day Agreement: Yes Rehab Potential: Good Time/GCodes Start Time: 10:10 Stop Time: 11:25 Total Time Billed (hr/min): 75 Billed Treatment Time 1, ADL x 75 minutes. FLEX PAIZ OT Apr 08, 2018 12:01
[2018-04-08 15:45] VITALS: BP 115/72
--- NOTE | 2018-04-08 19:03 | Progress Note (SOAP) ---
Subjective Date Seen by a Provider: Apr 08, 2018 Time Seen by a Provider: 19:00 Subjective/Events-last exam Fwup recent pneumonia with sepsis and respiratory failure, COPD, weakness. Feeling like getting stronger. Has been able to stay at decrease of 3L on oxygen. Objective Exam Vital Signs Date Time Temp Pulse Resp B/P (MAP) Pulse Ox O2 Delivery O2 Flow Rate FiO2 04/08/18 15:51 94 Nasal Cannula 3.00 04/08/18 15:45 97.7 88 16 115/72 (86) 94 Nasal Cannula 3.00 04/08/18 08:32 Nasal Cannula 2.50 04/08/18 08:02 82 20 94 Nasal Cannula 2.50 04/08/18 07:56 Nasal Cannula 2.00 04/08/18 07:51 93 Nasal Cannula 3.00 04/08/18 06:08 99.0 81 20 112/53 (72) 95 Nasal Cannula 3.00 04/07/18 20:48 Nasal Cannula 3.00 04/07/18 19:22 Nasal Cannula 3.00 04/07/18 19:17 93 Nasal Cannula 3.00 I & O 04/08/18 06:59 Intake Total 1330 ml Balance 1330 ml Capillary Refill : General Appearance: No Apparent Distress Neck: Supple Respiratory: Lungs Clear, Decreased Breath Sounds Cardiovascular: Regular Rate, Rhythm Gastrointestinal: normal bowel sounds, non tender, soft Extremity: Non Tender, No Calf Tenderness, No Pedal Edema Neurologic/Psychiatric: Alert, Oriented x3 Skin: Warm/Dry Assessment/Plan Assessment/Plan Assess & Plan/Chief Complaint 1. Recent pneumonia with sepsis and respiratory failure-- oxygen down to 3 liters and finished prednisone taper 2. Weakness--PT and OT 3. COPD with recent acute exacerbation--improved 4. Depression--zoloft resumed 5. Hypothyroidism--home levothyroxine resumed 6. Constipation--improved 7. Acute Anemia---added MV with iron Clinical Quality Measures DVT/VTE Risk/Contraindication: Risk Factor Score Per Nursin RFS Level Per Nursing on Admit: 4+=Very High AMEYA PEREZ DO Apr 08, 2018 19:03
[2018-04-08] MEDS: SERTRALINE 50 MG (ZOLOFT) TABLET PO SCH (20:28)
[2018-04-08] MEDS: ATORVASTATIN 40 MG (LIPITOR) TABLET PO SCH (20:28)
[2018-04-08] MEDS: rOPINIRole 0.25 MG (REQUIP) TAB PO SCH (20:29)
[2018-04-08] MEDS: MONTELUKAST 10 MG (SINGULAIR) TAB PO SCH (20:29)
--- NOTE | 2018-04-08 20:44 | PM & R (SOAP) Progress Note ---
Subjective This was a face to face visit with the patient. Date Seen by Provider: Apr 08, 2018 Time Seen by Provider: 20:40 Subjective/Events-last exam Patient was seen in her room this evening Patient SBA for gait progressing well with therapies Objective Physician Exam Last Set of Vital Signs Vital Signs Date Time Temp Pulse Resp B/P (MAP) Pulse Ox O2 Delivery O2 Flow Rate FiO2 04/08/18 20:02 94 Nasal Cannula 3.00 04/08/18 15:45 97.7 88 16 115/72 (86) Capillary Refill : I&O Intake and Output 04/08/18 00:00 Intake Total 1130 ml Balance 1130 ml Intake Oral 1130 ml # Voids 8 # Bowel Movements 2 General: Alert, Oriented X3, Cooperative, No Acute Distress HEENT: Atraumatic, PERRLA, EOMI, Mucous Memb Moist/[place], Other (02 by N/C in place) Neck: Supple, No JVD Lungs: Other (Decreased brath sounds at bases) Heart: Regular Rate Abdomen: Normal Bowel Sounds, Soft, No Tenderness Extremities: No Edema Skin: No Rashes, No Breakdown Neuro: Other (Generalized weakness) Psych/Mental Status: Mental Status NL Assessment/Plan Assessment and Plan general debil secondary to acute exacerbation of COPD 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
[2018-04-09 05:05] VITALS: BP 117/74
[2018-04-09] MEDS: MULTIVIT W/MINERALS TAB (THERAGRAN M) PO SCH (05:59)
[2018-04-09] MEDS: LEVOTHYROXINE 112 MCG (LEVOTHROID) TAB PO SCH (05:59)
[2018-04-09] MEDS: RT-ALBUTEROL/IPRATROPIUM 3 ML (DUONEB) VIAL INH SCH ×3 (06:47→19:22)
[2018-04-09] MEDS: RT-ADVAIR HFA 115/21 MCG PER PUFF IH SCH ×2 (06:48→19:22)
[2018-04-09] MEDS: VITAMIN D3 1,000 UNITS (CHOLECALCIFEROL) TABLET PO SCH (08:17)
[2018-04-09] MEDS: ASPIRIN E.C. 81 MG (ECOTRIN) TAB PO SCH (08:17)
[2018-04-09] MEDS: FAMOTIDINE 20 MG (PEPCID) TABLET PO SCH ×2 (08:18→21:08)
[2018-04-09] MEDS: SENNA W/DOCUSATE (SENOKOT S) TABLET PO SCH ×2 (08:18→21:09)
[2018-04-09] MEDS: LORATADINE (CLARITIN) 10 MG TAB PO SCH (08:18)
--- NOTE | 2018-04-09 09:02 | Physical Therapy Daily Note ---
PT Daily Note-Current Subjective Pt. agrees to Rx. States she wants to go home tomorrow but as rx progresses pt. stats she had stayed in Assisted Living before and wouldnt mind doing it again if she could afford it. States she has used extended O2 tubing at home before but not with use of FWW Pain Numeric Pain Scale: 0-No Pain Mental Status Patient Orientation: Person, Place, Time, Situation Attachments: Oxygen (2L sats steady >90% with activity and rest) Transfers Therapy Code Descriptions/Definitions Functional [place] Measure: 0=Not Assessed/NA 4=Minimal Assistance 1=Total Assistance 5=Supervision or Setup 2=Maximal Assistance 6=Modified [place] 3=Moderate Assistance 7=Complete [place] Therapy Quality Codes: 6 Independent with activity with or without an assistive device 5 Patient requires set up or clean up by helper. Patient completes activity by themselves 4 Supervision or touching assist (CGA). [place] provide cues , steadying assist 3 The helper provides less than half the effort to complete the activity 2 The helper provides more than half the effort to complete the activity 1 Dependent. The helper does all the effort to complete an activity 7 Patient refused to complete or attempt activity 9 The patient did not perform the activity before the current illness or injury 88 Not attempted due to Medical conditions or safety concerns Transfers (B, C, W/C) (FIM): 5 Scootin Rollin Supine to/from Sit: 5 Sit to/from Stand: 5 Weight Bearing Right Lower Extremity: Right Full Weight Bearing Left Lower Extremity: Left Full Weight Bearing Gait Training Does the Patient Walk?: Yes Gait (FIM): 3 Distance (FIM): 3=150 ft (150,100,50x3) Gait Level of Assist: 3 Gait Persons Needed: 1 Gait Assistive Device: FWW gait training focusing on use of extended o2 tubing and FWW, pt. was instructed in safe use but had 2 episodes of LOB as she let go of FWW, turning to manage tubing which was hung up on furniture and required mod assist to recover Stair Training Stair Training: Handrails/: 2 handrails Stairs (FIM): 2 #of Steps: 4 Stairs: Pattern: Reciprocal Level of Assist: 4 needs instruction and sequence cues thru steps Exercises Supine Ex: Bridging, Ankle pumps, Rolling, Heel Slides, Short Arc Quads, Scooting, Straight leg raise, Hip abd/add Supine Reps: 15 Assessment Current Status: Good Progress LOB with gait as she managed extended O2 tubing. Pt. may be good asst living candidate PT Short Term Goals Short Term Goals Time Frame: Apr 09, 2018 Transfers (B,C,W/C) (FIM): 4 Gait (FIM): 2 Gait Distance Comment: 50' Gait Level of Assist: 4 Gait Assistive Device: FWW Wheelchair Distance: 20' PT [facility] Goals [employer] Librarian Goals PT [facility] Goals Time Frame: Apr 23, 2018 Transfers (B,C,W/C) (FIM): 5 Sit to Lying (QC): 4 Lying-Sitting on Side/Bed(QC): 4 Sit to Stand (QC): 4 Rollin Roll Left to Right (QC): 4 Chair/Chp-mw-Cuwjc Xfer(QC): 4 Car Transfer (QC): 4 Gait (FIM): 5 Distance: 150' Walk 10 feet (QC): 4 Walk 10ft-Uneven Surface(QC): 4 Walk 50ft with 2 Turns (QC): 4 Walk 150 ft (QC): 4 Gait Level of Assist: 5 Gait Assistive Device: FWW Wheelchair (FIM): 5 Distance: 150' Wheelchair Level of Assist: 5 Wheel 50 feet with 2 turns (QC: 4 Stairs (FIM): 2 # of Steps: 4 1 Step (curb) (QC): 4 4 Steps (QC): 4 12 Steps (QC): 4 Stairs Level Of Assist: 4 PT Plan Treatment/Plan Treatment Plan: Continue Plan of Care Treatment Plan: Bed Mobility, Concurrent Therapy, Education, Functional Activity Yolanda, Functional Strength, Group Therapy, Gait, Safety, Therapeutic Exercise, Transfers Treatment Duration: Apr 23, 2018 Frequency: At least 5 of 7 days/Wk (IRF) Estimated Hrs Per Day: 1.5 hours per day Patient and/or Family Agrees t: Yes Safety Risks/Education Patient Education: Gait Training, Transfer Techniques, Steps, Correct Positioning, Disease Process, Safety Issues Teaching Recipient: Patient Teaching Methods: Demonstration, Discussion Response to Teaching: Verbalize Understanding, Return Demonstration, Reinforcement Needed Time/GCodes Time In: 800 Time Out: 900 Total Billed Treatment Time: 60 Total Billed Treatment 1,GT25m,FA20m,Ex 15m G Codes Necessary: LIDA Rosado AUT[employer] REFINISHER Apr 09, 2018 09:02
--- NOTE | 2018-04-09 11:00 | Speech Therapy Daily Note ---
Speech Daily Progress Note Subjective Date Seen by Provider: Apr 09, 2018 Time Seen by Provider: 00:30 Patient was awake and participated well with skilled therapy. Objective Patient completed intermediate level of skilled linguistic tasks at 80% with decreased verbal cues. Treatment Plan Continue Plan of Care Communication Comprehension: 7 Expression: 7 Social Cognition Social Interaction: 7 Problem Solvin Memory: 7 Speech Short Term Goals Short Term Goals Short Term Goals Patient will demonstrate safety awareness within her living environment without cues. Speech Vp Data Goals Vp Data Goals Patient will demonstrate safety and independence upon her release from this hospital for safe return home. Speech-Plan Patient/Family Goals Patient/Family Goals: Patient plans to return home this week with family support. Treatment Plan Speech Therapy Treatment Plan: Continue Plan of Care Patient has progressed well with safety awareness and independence. Treatment Duration: Apr 08, 2018 Frequency: Modified Program (IRF) Estimated Hrs Per Day: Other Rehab Potential: Good Pt/Family Agrees to Plan: Yes Safety Risks/Education Teaching Recipient: Patient Teaching Methods: Discussion Response to Teaching: Verbalize Understanding Education Topics Provided: Safety within her living environment. Time Speech Therapy Time In: 09:00 Speech Therapy Time Out: 09:30 Total Billed Time: 30 Billed Treatment Time 1, ALISON Navas Apr 09, 2018 11:00
[2018-04-09] MEDS: ENOXAPARIN 40 MG/0.4 ML (LOVENOX) SYR SC SCH (11:11)
[2018-04-09] MEDS: LACTOBACILLUS Acidoph/Bulgar 1 GM (LACTINEX) PACKET PO SCH ×3 (11:14→21:08)
--- NOTE | 2018-04-09 11:14 | PM & R (SOAP) Progress Note ---
Subjective This was a face to face visit with the patient. Date Seen by Provider: Apr 07, 2018 Time Seen by Provider: 18:00 Subjective/Events-last exam Patient was seen in her room this evening Progressing well with therapies Weaned down to 3 liters 02 by N/C at this time.Patient SBA to Min assist for transfers.Endurance improving Review of Systems Pulmonary: Dyspnea Neurological: Weakness Objective Physician Exam Last Set of Vital Signs Vital Signs Date Time Temp Pulse Resp B/P (MAP) Pulse Ox O2 Delivery O2 Flow Rate FiO2 04/09/18 08:35 Nasal Cannula 2.00 04/09/18 06:47 93 04/09/18 05:05 99.7 79 20 117/74 (88) Capillary Refill : I&O Intake and Output 04/08/18 23:59 Intake Total 1400 ml Balance 1400 ml Intake Oral 1400 ml # Voids 8 # Bowel Movements 4 General: Alert, Oriented X3, Cooperative, No Acute Distress HEENT: Atraumatic, PERRLA, EOMI, Mucous Memb Moist/[place], Other (02 by N/C in place) Neck: Supple, No JVD Lungs: Other (Decreased brath sounds at bases) Heart: Regular Rate Abdomen: Normal Bowel Sounds, Soft, No Tenderness Extremities: No Edema Skin: No Rashes, No Breakdown Neuro: Other (Generalized weakness) Psych/Mental Status: Mental Status NL Assessment/Plan Assessment and Plan General debil secondary to acute exacerbation of COPD continue to wean to baseline on 3 liters at this time 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
--- NOTE | 2018-04-09 11:52 | Physical Therapy Daily Note ---
PT Daily Note-Current Subjective Pt. agrees to gait training using extended O2 tubing that she will need to manage at home. Mental Status Patient Orientation: Person, Place, Time, Situation Transfers Therapy Code Descriptions/Definitions Functional [place] Measure: 0=Not Assessed/NA 4=Minimal Assistance 1=Total Assistance 5=Supervision or Setup 2=Maximal Assistance 6=Modified [place] 3=Moderate Assistance 7=Complete [place] Therapy Quality Codes: 6 Independent with activity with or without an assistive device 5 Patient requires set up or clean up by helper. Patient completes activity by themselves 4 Supervision or touching assist (CGA). [place] provide cues , steadying assist 3 The helper provides less than half the effort to complete the activity 2 The helper provides more than half the effort to complete the activity 1 Dependent. The helper does all the effort to complete an activity 7 Patient refused to complete or attempt activity 9 The patient did not perform the activity before the current illness or injury 88 Not attempted due to Medical conditions or safety concerns all sit to stand ( x6) SBA Weight Bearing Right Lower Extremity: Right Full Weight Bearing Left Lower Extremity: Left Full Weight Bearing Gait Training Gait Assistive Device: FWW 80 ft x 4 FWW with extended O2 tubing insitu, pt. managing much better this Rx, no LOB, good safe management of tubing at turns etc. safer Exercises Seated Therapy Exercises: Ankle pumps, Sit to stand, Long arc quads Seated Reps: 10 Assessment Current Status: Good Progress safer gait managing ext tubing for o2 etc PT Short Term Goals Short Term Goals Time Frame: Apr 09, 2018 Transfers (B,C,W/C) (FIM): 4 Gait (FIM): 2 Gait Distance Comment: 50' Gait Level of Assist: 4 Gait Assistive Device: FWW Wheelchair Distance: 20' PT Skilled Nursing Goals Skilled Nursing Goals PT Skilled Nursing Goals Time Frame: Apr 23, 2018 Transfers (B,C,W/C) (FIM): 5 Sit to Lying (QC): 4 Lying-Sitting on Side/Bed(QC): 4 Sit to Stand (QC): 4 Rollin Roll Left to Right (QC): 4 Chair/Tzo-fd-Pjzso Xfer(QC): 4 Car Transfer (QC): 4 Gait (FIM): 5 Distance: 150' Walk 10 feet (QC): 4 Walk 10ft-Uneven Surface(QC): 4 Walk 50ft with 2 Turns (QC): 4 Walk 150 ft (QC): 4 Gait Level of Assist: 5 Gait Assistive Device: FWW Wheelchair (FIM): 5 Distance: 150' Wheelchair Level of Assist: 5 Wheel 50 feet with 2 turns (QC: 4 Stairs (FIM): 2 # of Steps: 4 1 Step (curb) (QC): 4 4 Steps (QC): 4 12 Steps (QC): 4 Stairs Level Of Assist: 4 PT Plan Treatment/Plan Treatment Plan: Continue Plan of Care Treatment Plan: Bed Mobility, Concurrent Therapy, Education, Functional Activity Yolanda, Functional Strength, Group Therapy, Gait, Safety, Therapeutic Exercise, Transfers Treatment Duration: Apr 23, 2018 Frequency: At least 5 of 7 days/Wk (IRF) Estimated Hrs Per Day: 1.5 hours per day Patient and/or Family Agrees t: Yes Safety Risks/Education Patient Education: Gait Training, Transfer Techniques, Correct Positioning, Disease Process, Safety Issues Teaching Recipient: Patient Teaching Methods: Demonstration, Discussion Response to Teaching: Verbalize Understanding, Return Demonstration, Reinforcement Needed Time/GCodes Time In: 1130 Time Out: 1200 Total Billed Treatment Time: 30 Total Billed Treatment 1,GT30m G Codes Necessary: LIDA Rosado PSYCHIATRIC REGISTERED NURSE Apr 09, 2018 11:52
--- NOTE | 2018-04-09 12:30 | PM & R (SOAP) Progress Note ---
Subjective This was a face to face visit with the patient. Date Seen by Provider: Apr 09, 2018 Time Seen by Provider: 12:00 Subjective/Events-last exam Patient was seen in her room this Noon hour Progressing well with therapies Patient SBA for transfers Down to baseline 2liters 02 by n/c . Objective Physician Exam Last Set of Vital Signs Vital Signs Date Time Temp Pulse Resp B/P (MAP) Pulse Ox O2 Delivery O2 Flow Rate FiO2 04/09/18 08:35 Nasal Cannula 2.00 04/09/18 06:47 93 04/09/18 05:05 99.7 79 20 117/74 (88) Capillary Refill : I&O Intake and Output 04/09/18 00:00 Intake Total 1400 ml Balance 1400 ml Intake Oral 1400 ml # Voids 8 # Bowel Movements 4 General: Alert, Oriented X3, Cooperative, No Acute Distress HEENT: Atraumatic, PERRLA, EOMI, Mucous Memb Moist/[place], Other (02 by N/C in place) Neck: Supple, No JVD Lungs: Other (Decreased brath sounds at bases) Heart: Regular Rate Abdomen: Normal Bowel Sounds, Soft, No Tenderness Extremities: No Edema Skin: No Rashes, No Breakdown Neuro: Other (Generalized weakness) Psych/Mental Status: Mental Status NL Assessment/Plan Assessment and Plan General debil secondary to acute exacerbation of COPD 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
--- NOTE | 2018-04-09 13:09 | Occupational Ther Daily Note ---
OT Current Status-Daily Note Subjective Pt was excited to report having gone up and down the 4 steps in the therapy gym. Appearance Pt in recliner, alert, and ready to work with OT. Mental Status/Objective Patient Orientation: Person, Place, Time, Situation Therapy Code Descriptions/Definitions Functional [place] Measure: 0=Not Assessed/NA 4=Minimal Assistance 1=Total Assistance 5=Supervision or Setup 2=Maximal Assistance 6=Modified [place] 3=Moderate Assistance 7=Complete [place] Attachments: Oxygen ADL-Treatment Therapy Code Descriptions/Definitions Functional [place] Measure: 0=Not Assessed/NA 4=Minimal Assistance 1=Total Assistance 5=Supervision or Setup 2=Maximal Assistance 6=Modified [place] 3=Moderate Assistance 7=Complete [place] Therapy Quality Codes: 6 Independent with activity with or without an assistive device 5 Patient requires set up or clean up by helper. Patient completes activity by themselves 4 Supervision or touching assist (CGA). Phyllis provide cues , steadying assist 3 The helper provides less than half the effort to complete the activity 2 The helper provides more than half the effort to complete the activity 1 Dependent. The helper does all the effort to complete an activity 7 Patient refused to complete or attempt activity 9 The patient did not perform the activity before the current illness or injury 88 Not attempted due to Medical conditions or safety concerns Grooming (FIM): 5 (Pt able to comb hair and brush teeth standing at sink SBA. ) Oral Hygiene (QC): 4 Lower Body Dressing (FIM): 5 (Pt able to doff undergarments and pants while sitting on toilet. Pt able to don undergarments and pants while seated on toilet with extended time and rest breaks. SBA. ) Lower Body Dressing (QC): 4 On/Off Footwear (QC): 4 Toileting (FIM): 5 (Pt able to toilet SBA. Pt is able to pull down pants, cleanse, and pull pants up standing at FWW. ) Toileting Hygiene (QC): 4 Transfers (B, C, W/C) (FIM): 5 (Pt transfers SBA. Ambulates CGA with walker. ) Pt. agreed to complete LE dressing tasks and grooming tasks only during ADL treatment, as she had good shower yesterday. Pt requested to toilet at beginning of session. Pt. ambulated to toilet with walker with CGA. Pt able to do all toileting tasks with SBA and setup with clean brief. Able to don brief and pants with SBA. Pt ambulated to sink for grooming tasks while in stance. Pt ambulates to therapy gym CGA with walker. Other Treatment Pt participates in 10 minutes of mod resistance on arm bike for increased activity tolerance. Pt participates in standing dynamic balance activity while batting a balloon back to therapist with rest breaks as needed. Utilized walker in stance, and able to tolerate activity approximately 15 minutes with rest breaks to sit. Tolerance seemed to improve from previous days task of standing to groom. Pt participated in activity of plastic discs on long pegs for hand/eye coordination and fine motor skills. Pt was able to complete tasks of removing and replacing all discs alternating UE and crossing midline. Improvement of grasp, speed, and accuracy also improved from last attempt at the same activity. Pt ambulated to large bathroom in hallway with walker to look at bathtub to prepare for tomorrow's session in the bathtub. Pt. verbalizes understanding of transfer for safety into tub. Pt ambulated to laundry to gather clothing and returned to room. Pt transferred from FWW to recliner, all needs met. Pt at times forgets to reach back for chair before sitting and to push up from chair before standing. Education OT Patient Education: Energy conservation, Exercise program, Modified ADL techniques, Progress toward Goal/Update tx plan, Purpose of tx/functional activities, Reviewed precautions, Rehab process, Transfer techniques Teaching Recipient: Patient Teaching Methods: Demonstration, Discussion Response to Teaching: Verbalize Understanding, Return Demonstration OT Short Term Goals Short Term Goals Time Frame: Apr 16, 2018 Eating(FIM): 5 Grooming(FIM): 4 Bathing(FIM): 4 Upper Body Dressing(FIM): 4 Lower Body Dressing(FIM): 4 Toileting(FIM): 4 Transfers (B,C,W/C) (FIM): 4 Toilet/Commode Transfer(FIM): 4 Shower Transfer(FIM): 4 Additional Short Term Goals: 1-Demonstrate ADL Tasks, 2-Verbalize Understanding , 3-ImproveStrength/Yolanda 1=Demonstrate adherence to instructed precautions during ADL tasks. 2=Patient will verbalize/demonstrate understanding of assistive devices/ modifications for ADL. 3=Patient will improve strength/tolerance for activity to enable patient to perform ADL's. OT Retirement Goals Retirement Goals Time Frame: Apr 30, 2018 Eating (FIM): 6 Eating (QC): 6 Groomin Oral Hygiene (QC): 6 Bathing(FIM): 5 Shower/Bathe Self (QC): 5 Upper Body Dressing(FIM): 6 Upper Body Dressing (QC): 6 Lower Body Dressing(FIM): 5 Lower Body Dressing (QC): 5 On/Off Footwear (QC): 5 Toileting(FIM): 6 Toileting Hygiene (QC): 6 Transfers (B,C,W/C) (FIM): 6 Toilet/Commode Transfer(FIM): 6 Toilet/Commode Transfer (QC): 6 Shower Transfer(FIM): 5 Additional Goals: 1-Demonstrate ADL Tasks, 2-Verbalize Understanding, 3- ImproveStrength/Yolanda 1=Demonstrate adherence to instructed precautions during ADL tasks. 2=Patient will verbalize/demonstrate understanding of assistive devices/ modifications for ADL. 3=Patient will improve strength/tolerance for activity to enable patient to perform ADL's. OT Education/Plan Problem List/Assessment Assessment: Decreased Activ Tolerance, Decreased UE Strength, Impaired Cognition, Impaired Funct Balance, Impaired I ADL's, Impaired Self-Care Skills, Restricted Funct UE ROM Discharge Recommendations Plan/Recommendations: Continue POC Treatment Plan/Plan of Care Treatment,Training & Education: Yes Patient would benefit from OT for education, treatment and training to promote independence in ADL's, mobility, safety and/or upper extremity function for ADL' s. Plan of Care: ADL Retraining, Cognitive Retraining, Functional Mobility, Group Exercise/Act as Ind, UE Funct Exercise/Act Treatment Duration: Apr 30, 2018 Frequency: 5 times per week Estimated Hrs Per Day: 1.5 hours per day Agreement: Yes Rehab Potential: Good Time/GCodes Start Time: 10:00 Stop Time: 11:15 Total Time Billed (hr/min): 75 Billed Treatment Time 1, ADL x 20 minutes, EX x 25 minutes, FA x 30 minutes. FLEX PAIZ OT Apr 09, 2018 13:09
[2018-04-09 17:35] VITALS: BP 131/80
[2018-04-09] MEDS ORDERED: PATIENT MAY USE OWN MED,SINGLE MED TP SCH (21:00)
[2018-04-09] MEDS: rOPINIRole 0.25 MG (REQUIP) TAB PO SCH (21:08)
[2018-04-09] MEDS: SERTRALINE 50 MG (ZOLOFT) TABLET PO SCH (21:08)
[2018-04-09] MEDS: MONTELUKAST 10 MG (SINGULAIR) TAB PO SCH (21:08)
[2018-04-09] MEDS: ATORVASTATIN 40 MG (LIPITOR) TABLET PO SCH (21:08)
[2018-04-09] MEDS: TRIAMCINOLONE 0.1% CR (KENALOG) 15 GM TUBE TOP SCH (21:11)
[2018-04-10 05:08] VITALS: BP 126/77
[2018-04-10] MEDS: LACTOBACILLUS Acidoph/Bulgar 1 GM (LACTINEX) PACKET PO SCH ×4 (06:18→20:14)
[2018-04-10] MEDS: MULTIVIT W/MINERALS TAB (THERAGRAN M) PO SCH (06:18)
[2018-04-10] MEDS: LEVOTHYROXINE 112 MCG (LEVOTHROID) TAB PO SCH (06:18)
[2018-04-10] MEDS: RT-ADVAIR HFA 115/21 MCG PER PUFF IH SCH (07:17)
[2018-04-10] MEDS: RT-ALBUTEROL/IPRATROPIUM 3 ML (DUONEB) VIAL INH SCH ×2 (07:17→16:22)
--- NOTE | 2018-04-10 08:44 | PM & R (SOAP) Progress Note ---
Subjective This was a face to face visit with the patient. Date Seen by Provider: Apr 10, 2018 Time Seen by Provider: 08:05 Subjective/Events-last exam Patient was seen in her room this AM Patient SBA to Modified Independent for transfers Progressing well with therapies with improved exercise tolerance and decreased SOB.Down to 2 liters of 02 flow rate which is baseline for her Objective Physician Exam Last Set of Vital Signs Vital Signs Date Time Temp Pulse Resp B/P (MAP) Pulse Ox O2 Delivery O2 Flow Rate FiO2 04/10/18 07:18 92 Nasal Cannula 1.50 04/10/18 05:08 98.4 85 18 126/77 (93) Capillary Refill : I&O Intake and Output 04/10/18 00:00 Intake Total 990 ml Balance 990 ml Intake Oral 990 ml # Voids 5 # Bowel Movements 1 General: Alert, Oriented X3, Cooperative, No Acute Distress HEENT: Atraumatic, PERRLA, EOMI, Mucous Memb Moist/[place], Other (02 by N/C in place) Neck: Supple, No JVD Lungs: Other (Decreased brath sounds at bases) Heart: Regular Rate Abdomen: Normal Bowel Sounds, Soft, No Tenderness Extremities: No Edema Skin: No Rashes, No Breakdown Neuro: Other (Generalized weakness) Psych/Mental Status: Mental Status NL Assessment/Plan Assessment and Plan General debil secondary to acute exacerbation of COPD 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
[2018-04-10] MEDS: FAMOTIDINE 20 MG (PEPCID) TABLET PO SCH ×2 (09:37→20:13)
[2018-04-10] MEDS: LORATADINE (CLARITIN) 10 MG TAB PO SCH (09:37)
[2018-04-10] MEDS: SENNA W/DOCUSATE (SENOKOT S) TABLET PO SCH ×2 (09:37→20:14)
[2018-04-10] MEDS: VITAMIN D3 1,000 UNITS (CHOLECALCIFEROL) TABLET PO SCH (09:37)
[2018-04-10] MEDS: ASPIRIN E.C. 81 MG (ECOTRIN) TAB PO SCH (09:37)
--- NOTE | 2018-04-10 09:37 | Occupational Ther Daily Note ---
OT Current Status-Daily Note Subjective Pt stated that she was anxious about taking a shower in the bathtub. Appearance Pt in recliner, alert, and willing to work with OT. Pt's son, Alexandru, also in Pt' s room. Mental Status/Objective Patient Orientation: Person, Place, Time, Situation Therapy Code Descriptions/Definitions Functional [place] Measure: 0=Not Assessed/NA 4=Minimal Assistance 1=Total Assistance 5=Supervision or Setup 2=Maximal Assistance 6=Modified [place] 3=Moderate Assistance 7=Complete [place] Attachments: Oxygen Pt on O2 on 1 1/2 L. ADL-Treatment Therapy Code Descriptions/Definitions Functional [place] Measure: 0=Not Assessed/NA 4=Minimal Assistance 1=Total Assistance 5=Supervision or Setup 2=Maximal Assistance 6=Modified [place] 3=Moderate Assistance 7=Complete [place] Therapy Quality Codes: 6 Independent with activity with or without an assistive device 5 Patient requires set up or clean up by helper. Patient completes activity by themselves 4 Supervision or touching assist (CGA). [place] provide cues , steadying assist 3 The helper provides less than half the effort to complete the activity 2 The helper provides more than half the effort to complete the activity 1 Dependent. The helper does all the effort to complete an activity 7 Patient refused to complete or attempt activity 9 The patient did not perform the activity before the current illness or injury 88 Not attempted due to Medical conditions or safety concerns Grooming (FIM): 5 (Pt. able to comb hair seated, and brushed teeth standing at sink with SBA.) Oral Hygiene (QC): 4 Bathing (FIM): 4 (Pt. able to wash all parts while seated on tub transfer bench in tub. However, due to fatigue, pt. unsure if she washed rear [place]quale area thoroughly, and therefore this therapist completed task again.) Shower/Bathe Self (QC): 4 Upper Body (FIM): 5 (Pt able to don and doff upper body dressing while sitting on shower bench SBA. Pt donned shirt in a more natural way smoothly today compared to previous days. Technique was different, seemed like routine instead of having to plan. ) Upper Body Dressing (QC): 4 Lower Body Dressing (FIM): 5 (Pt able to dofff and don all lower body dressing SBA while sitting on shower bench. Pt stood at walker with SBA to pull pants over hips. Pt used soft sock aide to don slipper socks. Pt was able to complete task independently with only verbal cues on how to this sock aide compared to hard plastic sock aide. ) Lower Body Dressing (QC): 4 On/Off Footwear (QC): 4 Transfers (B, C, W/C) (FIM): 4 (Pt transfers SBA from recliner- walker, to shower bench - walker, to chair - walker to recliner. Pt requires CGA for ambulation. ) Shower Transfer(FIM): 5 (Pt transfers SBA to/from walker to shower bench. ) Pt ambulated, CGA to therapy shower room to participate in bathing in tub with use of grab bars, shower bench, and hand-held shower. OT encouraged Pt to take the lead on what sequence she wanted to shower in. Previously Pt required several verbal cues as to what step to take next. Pt was able to better plan her bathing and was able to complete the task without missing any steps. Pt required extended time, but seemed to be only because of new environment. OT educated about the use of a walker basket for the front of walker. Therapist has concern for her carrying anything at this time using her walker. Pt ambulated to room [facility], using walker basket to carry laundry back to her room. Pt participated in brushing her hair in a chair at sink. Pt was able to complete task SBA with no assist from OT. Previously Pt would be too fatigued to brush hair with arms over shoulder height. Pt able to brush teeth in stance at sink using walker. No verbal cues needed for these tasks. Pt ambulated to recliner [facility], all needs met, O2 at 1 1/2L. Son still in room. Education OT Patient Education: Energy conservation, Modified ADL techniques, Progress toward Goal/Update tx plan, Purpose of tx/functional activities, Reviewed precautions, Rehab process, Safety issues, Transfer techniques, Use of adapted equipment Teaching Recipient: Patient Teaching Methods: Demonstration, Discussion Response to Teaching: Verbalize Understanding, Return Demonstration OT Short Term Goals Short Term Goals Time Frame: Apr 16, 2018 Eating(FIM): 5 Grooming(FIM): 4 Bathing(FIM): 4 Upper Body Dressing(FIM): 4 Lower Body Dressing(FIM): 4 Toileting(FIM): 4 Transfers (B,C,W/C) (FIM): 4 Toilet/Commode Transfer(FIM): 4 Shower Transfer(FIM): 4 Additional Short Term Goals: 1-Demonstrate ADL Tasks, 2-Verbalize Understanding , 3-ImproveStrength/Yolanda 1=Demonstrate adherence to instructed precautions during ADL tasks. 2=Patient will verbalize/demonstrate understanding of assistive devices/ modifications for ADL. 3=Patient will improve strength/tolerance for activity to enable patient to perform ADL's. OT Chemistry Associate Goals Chemistry Associate Goals Time Frame: Apr 30, 2018 Eating (FIM): 6 Eating (QC): 6 Groomin Oral Hygiene (QC): 6 Bathing(FIM): 5 Shower/Bathe Self (QC): 5 Upper Body Dressing(FIM): 6 Upper Body Dressing (QC): 6 Lower Body Dressing(FIM): 5 Lower Body Dressing (QC): 5 On/Off Footwear (QC): 5 Toileting(FIM): 6 Toileting Hygiene (QC): 6 Transfers (B,C,W/C) (FIM): 6 Toilet/Commode Transfer(FIM): 6 Toilet/Commode Transfer (QC): 6 Shower Transfer(FIM): 5 Additional Goals: 1-Demonstrate ADL Tasks, 2-Verbalize Understanding, 3- ImproveStrength/Yolanda 1=Demonstrate adherence to instructed precautions during ADL tasks. 2=Patient will verbalize/demonstrate understanding of assistive devices/ modifications for ADL. 3=Patient will improve strength/tolerance for activity to enable patient to perform ADL's. OT Education/Plan Problem List/Assessment Assessment: Decreased Activ Tolerance, Decreased Safety Aware, Decreased UE Strength, Impaired Cognition, Impaired I ADL's, Impaired Self-Care Skills, Restricted Funct UE ROM Discharge Recommendations Plan/Recommendations: Continue POC Treatment Plan/Plan of Care Treatment,Training & Education: Yes Patient would benefit from OT for education, treatment and training to promote independence in ADL's, mobility, safety and/or upper extremity function for ADL' s. Plan of Care: ADL Retraining, Cognitive Retraining, Functional Mobility, Group Exercise/Act as Ind, UE Funct Exercise/Act Treatment Duration: Apr 30, 2018 Frequency: 5 times per week Estimated Hrs Per Day: 1.5 hours per day Agreement: Yes Rehab Potential: Good Time/GCodes Start Time: 08:05 Stop Time: 09:20 Total Time Billed (hr/min): 75 Billed Treatment Time 1, ADL x 75 minutes. FLEX PAIZ OT Apr 10, 2018 09:37
[2018-04-10] MEDS: TRIAMCINOLONE 0.1% CR (KENALOG) 15 GM TUBE TOP SCH ×2 (09:38→20:15)
--- NOTE | 2018-04-10 10:57 | Physical Therapy Daily Note ---
PT Daily Note-Current Subjective Pt. states she feels a little stronger every day and is proud of her progress. Pt. introduces her son who asks if he might join us for her rx session. Pain Numeric Pain Scale: 0-No Pain Mental Status Patient Orientation: Person, Place, Time Transfers Therapy Code Descriptions/Definitions Functional [place] Measure: 0=Not Assessed/NA 4=Minimal Assistance 1=Total Assistance 5=Supervision or Setup 2=Maximal Assistance 6=Modified [place] 3=Moderate Assistance 7=Complete [place] Therapy Quality Codes: 6 Independent with activity with or without an assistive device 5 Patient requires set up or clean up by helper. Patient completes activity by themselves 4 Supervision or touching assist (CGA). [place] provide cues , steadying assist 3 The helper provides less than half the effort to complete the activity 2 The helper provides more than half the effort to complete the activity 1 Dependent. The helper does all the effort to complete an activity 7 Patient refused to complete or attempt activity 9 The patient did not perform the activity before the current illness or injury 88 Not attempted due to Medical conditions or safety concerns Transfers (B, C, W/C) (FIM): 5 Scootin Rollin Supine to/from Sit: 5 Sit to/from Stand: 5 Weight Bearing Right Lower Extremity: Right Full Weight Bearing Left Lower Extremity: Left Full Weight Bearing Gait Training Does the Patient Walk?: Yes Gait (FIM): 5 Distance (FIM): 3=150 ft (150x2,50x1) Gait Level of Assist: 5 Gait Persons Needed: 1 Gait Assistive Device: FWW assist for O2 and minimal instruction required today for managing the o2 tubing Stair Training Stair Training: Handrails/: 2 handrails Stairs (FIM): 2 #of Steps: 4 Stairs: Pattern: Step to Level of Assist: 4 sequence and O2 tube management assistance Exercises Supine Ex: Bridging, Ankle pumps, Rolling, Glut sets, Heel Slides, Scooting, Straight leg raise, Hip abd/add Supine Reps: 15 NuStep Minutes: 15 NuStep Workload: 3 Assessment Current Status: Good Progress PT Short Term Goals Short Term Goals Time Frame: Apr 09, 2018 Transfers (B,C,W/C) (FIM): 4 Gait (FIM): 2 Gait Distance Comment: 50' Gait Level of Assist: 4 Gait Assistive Device: FWW Wheelchair Distance: 20' PT Reel Blade Bender Furnace Tender Goals Mcfp Goals PT Mcfp Goals Time Frame: Apr 23, 2018 Transfers (B,C,W/C) (FIM): 5 Sit to Lying (QC): 4 Lying-Sitting on Side/Bed(QC): 4 Sit to Stand (QC): 4 Rollin Roll Left to Right (QC): 4 Chair/[id number] Xfer(QC): 4 Car Transfer (QC): 4 Gait (FIM): 5 Distance: 150' Walk 10 feet (QC): 4 Walk 10ft-Uneven Surface(QC): 4 Walk 50ft with 2 Turns (QC): 4 Walk 150 ft (QC): 4 Gait Level of Assist: 5 Gait Assistive Device: FWW Wheelchair (FIM): 5 Distance: 150' Wheelchair Level of Assist: 5 Wheel 50 feet with 2 turns (QC: 4 Stairs (FIM): 2 # of Steps: 4 1 Step (curb) (QC): 4 4 Steps (QC): 4 12 Steps (QC): 4 Stairs Level Of Assist: 4 PT Plan Treatment/Plan Treatment Plan: Continue Plan of Care Treatment Plan: Bed Mobility, Concurrent Therapy, Education, Functional Activity Yolanda, Functional Strength, Group Therapy, Gait, Safety, Therapeutic Exercise, Transfers Treatment Duration: Apr 23, 2018 Frequency: At least 5 of 7 days/Wk (IRF) Estimated Hrs Per Day: 1.5 hours per day Patient and/or Family Agrees t: Yes Safety Risks/Education Patient Education: Gait Training, Transfer Techniques, Steps, Correct Positioning, Disease Process, Safety Issues Teaching Recipient: Patient Teaching Methods: Demonstration, Discussion Response to Teaching: Verbalize Understanding, Return Demonstration, Reinforcement Needed Time/GCodes Time In: 1000 Time Out: 1100 Total Billed Treatment Time: 60 Total Billed Treatment 1,[id number] G Codes Necessary: LIDA Rosado DIRECTOR REVENUE Apr 10, 2018 10:57
--- NOTE | 2018-04-10 11:37 | Speech Therapy Daily Note ---
Speech Daily Progress Note Subjective Date Seen by Provider: Apr 10, 2018 Time Seen by Provider: 00:30 Patient pleasant and cooperative. She stated she was feeling much more rested. Objective Patient completed word play exercises related to memory at 80% with minimal repetitions. Assessment Assessment Current Status: Good Progress Treatment Plan Continue Plan of Care Communication Comprehension: 7 Expression: 7 Social Cognition Social Interaction: 7 Problem Solvin Memory: 7 Speech Short Term Goals Short Term Goals Short Term Goals Patient will demonstrate safety awareness within her living environment without cues. Speech Professional Engineer Goals Penitentiary Goals Patient will demonstrate safety and independence upon her release from this hospital for safe return home. Speech-Plan Patient/Family Goals Patient/Family Goals: Patient plans to return home to her duplex with family support. Treatment Plan Speech Therapy Treatment Plan: Continue Plan of Care Patient has made good progress with skilled ST services. Treatment Duration: Apr 08, 2018 Frequency: Modified Program (IRF) Estimated Hrs Per Day: Other Rehab Potential: Good Barriers to Learning: Short term memory deficit Pt/Family Agrees to Plan: Yes Safety Risks/Education Teaching Recipient: Patient, Family Teaching Methods: Discussion Response to Teaching: Verbalize Understanding Education Topics Provided: Safety within her living environment. Time Speech Therapy Time In: 11:00 Speech Therapy Time Out: 11:30 Total Billed Time: 30 Billed Treatment Time 1WANDA BETH[address] ST Apr 10, 2018 11:37
[2018-04-10] MEDS: ENOXAPARIN 40 MG/0.4 ML (LOVENOX) SYR SC SCH (11:44)
--- NOTE | 2018-04-10 14:03 | Physical Therapy Daily Note ---
PT Daily Note-Current Subjective Pt. agreeable to Rx. Feels she should work on gait with extended O2 tubing. Pt. indicates she is disappointed that this SUPERCHARGER REPAIR SUPERVISOR requested another week as she had hoped to attend a symphony where her son will play the cello and perform. Pt. does state that she knows there may be weather and she should stay longer to reduce her risk of falling at home etc. Pain Numeric Pain Scale: 0-No Pain Mental Status Patient Orientation: Person, Place, Time, Situation Attachments: Oxygen (2L) Transfers Therapy Code Descriptions/Definitions Functional [place] Measure: 0=Not Assessed/NA 4=Minimal Assistance 1=Total Assistance 5=Supervision or Setup 2=Maximal Assistance 6=Modified [place] 3=Moderate Assistance 7=Complete [place] Therapy Quality Codes: 6 Independent with activity with or without an assistive device 5 Patient requires set up or clean up by helper. Patient completes activity by themselves 4 Supervision or touching assist (CGA). [place] provide cues , steadying assist 3 The helper provides less than half the effort to complete the activity 2 The helper provides more than half the effort to complete the activity 1 Dependent. The helper does all the effort to complete an activity 7 Patient refused to complete or attempt activity 9 The patient did not perform the activity before the current illness or injury 88 Not attempted due to Medical conditions or safety concerns Transfers (B, C, W/C) (FIM): 6 Scootin TRFs on off toilet and in out chair all SBA Weight Bearing Right Lower Extremity: Right Full Weight Bearing Left Lower Extremity: Left Full Weight Bearing Gait Training Gait Assistive Device: FWW emphasis on extended tubing use during gait, pt. getting tangled up in tube at one point, letting go of her walker stepping over the tubing unsafely, this SUPERCHARGER REPAIR SUPERVISOR pointing out the vulnerability of this move etc and that an easy alternative would be turning toward the tube etc. Assessment Current Status: Good Progress continues progress, at risk for falls, needs to patent safe use of extended O2 tubing with FWW PT Short Term Goals Short Term Goals Time Frame: Apr 09, 2018 Transfers (B,C,W/C) (FIM): 4 Gait (FIM): 2 Gait Distance Comment: 50' Gait Level of Assist: 4 Gait Assistive Device: FWW Wheelchair Distance: 20' PT Correction Goals Correction Goals PT Seasonal Tax Preparer Goals Time Frame: Apr 23, 2018 Transfers (B,C,W/C) (FIM): 5 Sit to Lying (QC): 4 Lying-Sitting on Side/Bed(QC): 4 Sit to Stand (QC): 4 Rollin Roll Left to Right (QC): 4 Chair/Fqz-vp-[place] Xfer(QC): 4 Car Transfer (QC): 4 Gait (FIM): 5 Distance: 150' Walk 10 feet (QC): 4 Walk 10ft-Uneven Surface(QC): 4 Walk 50ft with 2 Turns (QC): 4 Walk 150 ft (QC): 4 Gait Level of Assist: 5 Gait Assistive Device: FWW Wheelchair (FIM): 5 Distance: 150' Wheelchair Level of Assist: 5 Wheel 50 feet with 2 turns (QC: 4 Stairs (FIM): 2 # of Steps: 4 1 Step (curb) (QC): 4 4 Steps (QC): 4 12 Steps (QC): 4 Stairs Level Of Assist: 4 PT Plan Treatment/Plan Treatment Plan: Continue Plan of Care Treatment Plan: Bed Mobility, Concurrent Therapy, Education, Functional Activity Yolanda, Functional Strength, Group Therapy, Gait, Safety, Therapeutic Exercise, Transfers Treatment Duration: Apr 23, 2018 Frequency: At least 5 of 7 days/Wk (IRF) Estimated Hrs Per Day: 1.5 hours per day Patient and/or Family Agrees t: Yes Safety Risks/Education Patient Education: Gait Training, Transfer Techniques, Disease Process, Safety Issues Teaching Recipient: Patient Teaching Methods: Demonstration, Discussion Response to Teaching: Verbalize Understanding, Return Demonstration, Reinforcement Needed Time/GCodes Time In: 1300 Time Out: 1330 Total Billed Treatment Time: 30 Total Billed Treatment 1,GT30m G Codes Necessary: LIDA Rosado PTA Apr 10, 2018 14:03
[2018-04-10 17:30] VITALS: BP 133/78
--- NOTE | 2018-04-10 17:45 | Progress Note (SOAP) ---
Subjective Date Seen by a Provider: Apr 10, 2018 Time Seen by a Provider: 12:55 Subjective/Events-last exam Fwup recent pneumonia with sepsis and respiratory failure, COPD, weakness. Down to 2L NC. States SS has talked to her about possible AL on DC. Objective Exam Vital Signs Date Time Temp Pulse Resp B/P (MAP) Pulse Ox O2 Delivery O2 Flow Rate FiO2 04/10/18 17:30 99.0 88 18 133/78 (96) 95 Nasal Cannula 2.00 04/10/18 08:00 Nasal Cannula 2.00 04/10/18 07:18 92 Nasal Cannula 1.50 04/10/18 05:08 98.4 85 18 126/77 (93) 96 Nasal Cannula 2.00 04/09/18 21:13 Nasal Cannula 2.00 04/09/18 19:26 Nasal Cannula 2.00 04/09/18 19:22 92 Nasal Cannula 2.00 I & O 04/10/18 07:00 Intake Total 900 ml Balance 900 ml Capillary Refill : General Appearance: No Apparent Distress Neck: Supple Respiratory: Lungs Clear, Decreased Breath Sounds Cardiovascular: Regular Rate, Rhythm Extremity: Non Tender, No Calf Tenderness, No Pedal Edema Neurologic/Psychiatric: Alert, Oriented x3 Assessment/Plan Assessment/Plan Assess & Plan/Chief Complaint 1. Recent pneumonia with sepsis and respiratory failure-- oxygen down to 2 liters and finished prednisone taper 2. Weakness--PT and OT 3. COPD with recent acute exacerbation--improved 4. Depression--zoloft resumed 5. Hypothyroidism--home levothyroxine resumed 6. Constipation--improved 7. Acute Anemia---added MV with iron Clinical Quality Measures DVT/VTE Risk/Contraindication: Risk Factor Score Per Nursin RFS Level Per Nursing on Admit: 4+=Very High AMEYA PEREZ DO Apr 10, 2018 17:45
[2018-04-10] MEDS: MONTELUKAST 10 MG (SINGULAIR) TAB PO SCH (20:13)
[2018-04-10] MEDS: rOPINIRole 0.25 MG (REQUIP) TAB PO SCH (20:13)
[2018-04-10] MEDS: ATORVASTATIN 40 MG (LIPITOR) TABLET PO SCH (20:13)
[2018-04-10] MEDS: SERTRALINE 50 MG (ZOLOFT) TABLET PO SCH (20:13)
[2018-04-11] MEDS: RT-ADVAIR HFA 115/21 MCG PER PUFF IH SCH ×3 (04:13→22:40)
[2018-04-11] MEDS: RT-ALBUTEROL/IPRATROPIUM 3 ML (DUONEB) VIAL INH SCH ×4 (04:14→22:40)
[2018-04-11 05:27] VITALS: BP 144/72
[2018-04-11] MEDS: LEVOTHYROXINE 112 MCG (LEVOTHROID) TAB PO SCH (06:13)
[2018-04-11] MEDS: LACTOBACILLUS Acidoph/Bulgar 1 GM (LACTINEX) PACKET PO SCH ×4 (06:13→20:35)
[2018-04-11] MEDS: MULTIVIT W/MINERALS TAB (THERAGRAN M) PO SCH (06:13)
--- NOTE | 2018-04-11 09:28 | Occupational Ther Daily Note ---
OT Current Status-Daily Note Subjective Pt stated that she was up several times during the night. She had several trips to the bathroom and wasn't feeling too good today. Nursing notified that pt. not feeling well and checking to see if pt. can have medication for nausea. Appearance Pt in recliner waiting for nursing staff to take temp. Temp checked and within normal range. Pt willing to to work with OT. Mental Status/Objective Patient Orientation: Person, Place, Time, Situation Therapy Code Descriptions/Definitions Functional [place] Measure: 0=Not Assessed/NA 4=Minimal Assistance 1=Total Assistance 5=Supervision or Setup 2=Maximal Assistance 6=Modified [place] 3=Moderate Assistance 7=Complete [place] Attachments: Oxygen O2 on 2L. ADL-Treatment Therapy Code Descriptions/Definitions Functional [place] Measure: 0=Not Assessed/NA 4=Minimal Assistance 1=Total Assistance 5=Supervision or Setup 2=Maximal Assistance 6=Modified [place] 3=Moderate Assistance 7=Complete [place] Therapy Quality Codes: 6 Independent with activity with or without an assistive device 5 Patient requires set up or clean up by helper. Patient completes activity by themselves 4 Supervision or touching assist (CGA). [place] provide cues , steadying assist 3 The helper provides less than half the effort to complete the activity 2 The helper provides more than half the effort to complete the activity 1 Dependent. The helper does all the effort to complete an activity 7 Patient refused to complete or attempt activity 9 The patient did not perform the activity before the current illness or injury 88 Not attempted due to Medical conditions or safety concerns Grooming (FIM): 4 (Pt performs brushing teeth with walker in stance at sink independently. Pt requires OT to help brush hair due to fatigue. ) Oral Hygiene (QC): 6 (Mod I at sink.) Toileting (FIM): 5 Toileting Hygiene (QC): 4 Transfers (B, C, W/C) (FIM): 4 (All transfers SBA, recliner to walker, walker to chair. CGA with ambulation with walker.) Toilet/Commode Transfer (FIM): 5 Toilet Transfer (QC): 4 (Pt performs toileting with SBA, able to pull down pants with use of walker and grab bars, cleanse, and pull up pants with use of walker and grab bars. ) Pt stated she was feeling nauseated, nursing notified and checking on medication. Pt was already dressed and declined to shower or change clothing. Pt ambulates to bathroom for grooming tasks. Pt needed to toilet, ambulates to toilet CGA. Toileting takes extended time due to her not "feeling well". Pt ambulates to therapy gym CGA. Other Treatment Pt participates in armbike for increased activity tolerance for 10 minutes on mod resistance. Pt participates in easy animal pathology teacher pegs for hand/eye coordination on large mat. Pt completes 95% of task before session ended. PT was scheduled to see Pt next and was present to take over therapy at end of OT session. All needs met. Education OT Patient Education: Correct positioning, Energy conservation, Exercise program, Modified ADL techniques, Progress toward Goal/Update tx plan, Purpose of tx/functional activities, Reviewed precautions, Rehab process, Transfer techniques Teaching Recipient: Patient Teaching Methods: Demonstration, Discussion Response to Teaching: Verbalize Understanding, Return Demonstration OT Short Term Goals Short Term Goals Time Frame: Apr 16, 2018 Eating(FIM): 5 Grooming(FIM): 4 Bathing(FIM): 4 Upper Body Dressing(FIM): 4 Lower Body Dressing(FIM): 4 Toileting(FIM): 4 Transfers (B,C,W/C) (FIM): 4 Toilet/Commode Transfer(FIM): 4 Shower Transfer(FIM): 4 Additional Short Term Goals: 1-Demonstrate ADL Tasks, 2-Verbalize Understanding , 3-ImproveStrength/Yolanda 1=Demonstrate adherence to instructed precautions during ADL tasks. 2=Patient will verbalize/demonstrate understanding of assistive devices/ modifications for ADL. 3=Patient will improve strength/tolerance for activity to enable patient to perform ADL's. OT Usp Goals Senior Controller Goals Time Frame: Apr 30, 2018 Eating (FIM): 6 Eating (QC): 6 Groomin Oral Hygiene (QC): 6 Bathing(FIM): 5 Shower/Bathe Self (QC): 5 Upper Body Dressing(FIM): 6 Upper Body Dressing (QC): 6 Lower Body Dressing(FIM): 5 Lower Body Dressing (QC): 5 On/Off Footwear (QC): 5 Toileting(FIM): 6 Toileting Hygiene (QC): 6 Transfers (B,C,W/C) (FIM): 6 Toilet/Commode Transfer(FIM): 6 Toilet/Commode Transfer (QC): 6 Shower Transfer(FIM): 5 Additional Goals: 1-Demonstrate ADL Tasks, 2-Verbalize Understanding, 3- ImproveStrength/Yolanda 1=Demonstrate adherence to instructed precautions during ADL tasks. 2=Patient will verbalize/demonstrate understanding of assistive devices/ modifications for ADL. 3=Patient will improve strength/tolerance for activity to enable patient to perform ADL's. OT Education/Plan Problem List/Assessment Assessment: Decreased Activ Tolerance, Decreased UE Strength, Impaired Cognition, Impaired I ADL's, Impaired Self-Care Skills Discharge Recommendations Plan/Recommendations: Continue POC Treatment Plan/Plan of Care Treatment,Training & Education: Yes Patient would benefit from OT for education, treatment and training to promote independence in ADL's, mobility, safety and/or upper extremity function for ADL' s. Plan of Care: ADL Retraining, Cognitive Retraining, Functional Mobility, Group Exercise/Act as Ind, UE Funct Exercise/Act Treatment Duration: Apr 30, 2018 Frequency: 5 times per week Estimated Hrs Per Day: 1.5 hours per day Agreement: Yes Rehab Potential: Good Time/GCodes Start Time: 08:05 Stop Time: 09:20 Total Time Billed (hr/min): 75 Billed Treatment Time 1, ADL x 30 minutes, EX x 15 minutes, FA x 30 minutes. FLEX PAIZ OT Apr 11, 2018 09:28
[2018-04-11] MEDS: SENNA W/DOCUSATE (SENOKOT S) TABLET PO SCH ×2 (09:45→20:35)
[2018-04-11] MEDS: FAMOTIDINE 20 MG (PEPCID) TABLET PO SCH ×2 (09:58→20:35)
[2018-04-11] MEDS: ASPIRIN E.C. 81 MG (ECOTRIN) TAB PO SCH (09:58)
[2018-04-11] MEDS: VITAMIN D3 1,000 UNITS (CHOLECALCIFEROL) TABLET PO SCH (09:59)
[2018-04-11] MEDS: LORATADINE (CLARITIN) 10 MG TAB PO SCH (09:59)
[2018-04-11] MEDS: TRIAMCINOLONE 0.1% CR (KENALOG) 15 GM TUBE TOP SCH ×2 (10:08→20:38)
--- NOTE | 2018-04-11 10:11 | Physical Therapy Daily Note ---
PT Daily Note-Current Subjective Patient in therapy gym pre tx, agrees to PT, no complaints of pain but states she is very tired because she was up to the bathroom many times last night. Appearance Patient in bed post tx with nurse call, phone, tray, all needs met. Mental Status Patient Orientation: Person, Place, Situation Attachments: Oxygen Transfers Therapy Code Descriptions/Definitions Functional [place] Measure: 0=Not Assessed/NA 4=Minimal Assistance 1=Total Assistance 5=Supervision or Setup 2=Maximal Assistance 6=Modified [place] 3=Moderate Assistance 7=Complete [place] Therapy Quality Codes: 6 Independent with activity with or without an assistive device 5 Patient requires set up or clean up by helper. Patient completes activity by themselves 4 Supervision or touching assist (CGA). [place] provide cues , steadying assist 3 The helper provides less than half the effort to complete the activity 2 The helper provides more than half the effort to complete the activity 1 Dependent. The helper does all the effort to complete an activity 7 Patient refused to complete or attempt activity 9 The patient did not perform the activity before the current illness or injury 88 Not attempted due to Medical conditions or safety concerns Transfers (B, C, W/C) (FIM): 5 Scootin Rollin Supine to/from Sit: 5 Sit to/from Stand: 5 Bed to/from Chair: 5 Weight Bearing Right Lower Extremity: Right Full Weight Bearing Left Lower Extremity: Left Full Weight Bearing Gait Training Gait (FIM): 5 Distance: 200'x2, 100' Gait Level of Assist: 5 Gait Persons Needed: 1 Gait Assistive Device: FWW Patient ambulates slowly but steady, however, she does tend to get out from behind her walker when turning. Exercises Standing: Hip Abduction, Heel/toe raises, Marching, Mini squats Standing Reps: 15 NuStep Minutes: 15 NuStep Workload: 4 Treatments bed mobility and transfers, ambulation, functional strengthening Assessment Current Status: Fair Progress improving endurance PT Short Term Goals Short Term Goals Time Frame: Apr 09, 2018 Transfers (B,C,W/C) (FIM): 4 Gait (FIM): 2 Gait Distance Comment: 50' Gait Level of Assist: 4 Gait Assistive Device: FWW Wheelchair Distance: 20' PT Usp Goals Usp Goals PT Usp Goals Time Frame: Apr 23, 2018 Transfers (B,C,W/C) (FIM): 5 Sit to Lying (QC): 4 Lying-Sitting on Side/Bed(QC): 4 Sit to Stand (QC): 4 Rollin Roll Left to Right (QC): 4 Chair/Jff-fk-Xqanw Xfer(QC): 4 Car Transfer (QC): 4 Gait (FIM): 5 Distance: 150' Walk 10 feet (QC): 4 Walk 10ft-Uneven Surface(QC): 4 Walk 50ft with 2 Turns (QC): 4 Walk 150 ft (QC): 4 Gait Level of Assist: 5 Gait Assistive Device: FWW Wheelchair (FIM): 5 Distance: 150' Wheelchair Level of Assist: 5 Wheel 50 feet with 2 turns (QC: 4 Stairs (FIM): 2 # of Steps: 4 1 Step (curb) (QC): 4 4 Steps (QC): 4 12 Steps (QC): 4 Stairs Level Of Assist: 4 PT Plan Problem List Problem List: Activity Tolerance, Functional Strength, Safety, Balance, Gait, Transfer, Bed Mobility, ROM Treatment/Plan Treatment Plan: Continue Plan of Care Treatment Plan: Bed Mobility, Concurrent Therapy, Education, Functional Activity Yolanda, Functional Strength, Group Therapy, Gait, Safety, Therapeutic Exercise, Transfers Treatment Duration: Apr 23, 2018 Frequency: At least 5 of 7 days/Wk (IRF) Estimated Hrs Per Day: 1.5 hours per day Patient and/or Family Agrees t: Yes Safety Risks/Education Patient Education: Gait Training, Transfer Techniques, Correct Positioning, Safety Issues Teaching Recipient: Patient Teaching Methods: Demonstration, Discussion Response to Teaching: Reinforcement Needed Time/GCodes Time In: 0920 Time Out: 1015 Total Billed Treatment Time: 55 Total Billed Treatment 1 visit GT 25' EX 30' SASHA MCCORD PT Apr 11, 2018 10:11
[2018-04-11] MEDS: ENOXAPARIN 40 MG/0.4 ML (LOVENOX) SYR SC SCH (11:47)
--- NOTE | 2018-04-11 12:49 | PM & R (SOAP) Progress Note ---
Subjective This was a face to face visit with the patient. Date Seen by Provider: Apr 11, 2018 Time Seen by Provider: 11:30 Subjective/Events-last exam Patient was seen in her room this AM Patient SBA for transfers Had Nausea associate with constipation this AM Feeling better now after BM Objective Physician Exam Last Set of Vital Signs Vital Signs Date Time Temp Pulse Resp B/P (MAP) Pulse Ox O2 Delivery O2 Flow Rate FiO2 04/11/18 09:00 Nasal Cannula 2.00 04/11/18 05:27 98.1 92 18 144/72 (96) 95 Capillary Refill : I&O Intake and Output 04/11/18 00:00 Intake Total 300 ml Balance 300 ml Intake Oral 300 ml # Voids 3 # Bowel Movements 1 General: Alert, Oriented X3, Cooperative, No Acute Distress HEENT: Atraumatic, PERRLA, EOMI, Mucous Memb Moist/[place], Other (02 by N/C in place) Neck: Supple, No JVD Lungs: Other (Decreased brath sounds at bases) Heart: Regular Rate Abdomen: Normal Bowel Sounds, Soft, No Tenderness Extremities: No Edema Skin: No Rashes, No Breakdown Neuro: Other (Generalized weakness) Psych/Mental Status: Mental Status NL Assessment/Plan Assessment and Plan general debil secondary to acute exacerbation of COPd COPD 02 dependent Obesity Hypothyroidism on replacement RLS on Requip Depression on med DVT prophylaxis on Lovenox subcut Constipation and nausea treated Mild cognitive deficits improving with ST Plan Continue PT/OT/ST Team Conference held yesterday-see report for full functional update and POC and ELOS (1) COPD exacerbation Assessment & Plan: Back to baseline 2 liters 02 Status: Acute Co-Morbidities that are continuing to impact the rehab process: (include details ) ANTONIETA RUBIO MD Apr 11, 2018 12:49
--- NOTE | 2018-04-11 14:26 | Physical Therapy Daily Note ---
PT Daily Note-Current Subjective "I feel so much better after I took a nap." Mental Status Patient Orientation: Person, Place, Time, Situation Transfers Therapy Code Descriptions/Definitions Functional [place] Measure: 0=Not Assessed/NA 4=Minimal Assistance 1=Total Assistance 5=Supervision or Setup 2=Maximal Assistance 6=Modified [place] 3=Moderate Assistance 7=Complete [place] Therapy Quality Codes: 6 Independent with activity with or without an assistive device 5 Patient requires set up or clean up by helper. Patient completes activity by themselves 4 Supervision or touching assist (CGA). [place] provide cues , steadying assist 3 The helper provides less than half the effort to complete the activity 2 The helper provides more than half the effort to complete the activity 1 Dependent. The helper does all the effort to complete an activity 7 Patient refused to complete or attempt activity 9 The patient did not perform the activity before the current illness or injury 88 Not attempted due to Medical conditions or safety concerns Transfers (B, C, W/C) (FIM): 5 Scootin Rollin Roll Left to Right (QC): 6 Supine to/from Sit: 6 Sit to/from Stand: 5 Sit to Lying (QC): 6 Sit to Stand (QC): 5 Chair/Afz-ru-Jtdpk Xfer(QC): 5 Bed to/from Chair: 5 SBA with standing activities due to decreased safety awareness. Weight Bearing Right Lower Extremity: Right Full Weight Bearing Left Lower Extremity: Left Full Weight Bearing Gait Training Does the Patient Walk?: Yes Gait (FIM): 5 (SBA for safety.) Distance (FIM): 3=150 ft Distance: 150 ft x 3 reps Gait Assistive Device: FWW Pt ambulated 150 ft with FWW with SBA; pt toileted, walked to from the bathroom with FWW with SBA. Toileted with SBA. Treatments functional gait and transfer training; safety education. Assessment Current Status: Good Progress Progressing with functional mobility and safety. PT Short Term Goals Short Term Goals Time Frame: Apr 09, 2018 Transfers (B,C,W/C) (FIM): 4 (met) Gait (FIM): 2 (met) Gait Distance Comment: 50' Gait Level of Assist: 4 Gait Assistive Device: FWW Wheelchair Distance: 20' PT Residential Real Estate Agent Goals Retirement Goals PT Residential Real Estate Agent Goals Time Frame: Apr 23, 2018 Transfers (B,C,W/C) (FIM): 5 Sit to Lying (QC): 4 Lying-Sitting on Side/Bed(QC): 4 Sit to Stand (QC): 4 Rollin Roll Left to Right (QC): 4 Chair/Rmt-jn-Rqvcc Xfer(QC): 4 Car Transfer (QC): 4 Gait (FIM): 5 Distance: 150' Walk 10 feet (QC): 4 Walk 10ft-Uneven Surface(QC): 4 Walk 50ft with 2 Turns (QC): 4 Walk 150 ft (QC): 4 Gait Level of Assist: 5 Gait Assistive Device: FWW Wheelchair (FIM): 5 Distance: 150' Wheelchair Level of Assist: 5 Wheel 50 feet with 2 turns (QC: 4 Stairs (FIM): 2 # of Steps: 4 1 Step (curb) (QC): 4 4 Steps (QC): 4 12 Steps (QC): 4 Stairs Level Of Assist: 4 PT Plan Problem List Problem List: Activity Tolerance, Functional Strength, Safety, Balance, Gait, Transfer, Bed Mobility Treatment/Plan Treatment Plan: Continue Plan of Care Treatment Plan: Bed Mobility, Concurrent Therapy, Education, Functional Activity Yolanda, Functional Strength, Group Therapy, Gait, Safety, Therapeutic Exercise, Transfers Treatment Duration: Apr 23, 2018 Frequency: At least 5 of 7 days/Wk (IRF) Estimated Hrs Per Day: 1.5 hours per day Patient and/or Family Agrees t: Yes Safety Risks/Education Patient Education: Safety Issues Teaching Recipient: Patient Teaching Methods: Discussion Response to Teaching: Reinforcement Needed Time/GCodes Time In: 1300 Time Out: 1320 ([id number]) Total Billed Treatment Time: 30 Total Billed Treatment visit x 2 Gt x 2 NHAN LOPEZ PT Apr 11, 2018 14:26
--- NOTE | 2018-04-11 15:30 | Speech Therapy Daily Note ---
Speech Daily Progress Note Subjective Date Seen by Provider: Apr 11, 2018 Time Seen by Provider: 00:30 Patient was feeling better this afternoon. Objective Patient completed memory tasks with 90% accuracy with minimal verbal cues. Treatment Plan Continue Plan of Care Communication Comprehension: 7 Expression: 7 Social Cognition Social Interaction: 7 Problem Solvin Memory: 7 Speech Short Term Goals Short Term Goals Short Term Goals Patient will demonstrate safety awareness within her living environment without cues. Speech Long-Term Goals Manuscript Editor Goals Patient will demonstrate safety and independence upon her release from this hospital for safe return home. Speech-Plan Patient/Family Goals Patient/Family Goals: Patient plans to return home with family support when she completes rehab. Treatment Plan Speech Therapy Treatment Plan: Continue Plan of Care Patient has made significant progress with all goals. Treatment Duration: Apr 08, 2018 Frequency: Modified Program (IRF) Estimated Hrs Per Day: Other Rehab Potential: Good Barriers to Learning: Patient tires easily still. Pt/Family Agrees to Plan: Yes Safety Risks/Education Teaching Recipient: Patient Teaching Methods: Discussion Response to Teaching: Verbalize Understanding Education Topics Provided: Safety within her living environment. Time Speech Therapy Time In: 14:45 Speech Therapy Time Out: 15:15 Total Billed Time: 30 Billed Treatment Time 1, ALISON aNvas Apr 11, 2018 15:30
[2018-04-11 15:45] VITALS: BP 114/65
--- NOTE | 2018-04-11 17:19 | Progress Note (SOAP) ---
Subjective Date Seen by a Provider: Apr 11, 2018 Time Seen by a Provider: 12:30 Subjective/Events-last exam Fwup recent pneumonia with sepsis and respiratory failure, COPD, weakness. Patient sleeping. Nursing states she had diarrhea overnight so did not sleep well last night. She has had none this morning. Going to be reassessed Sunday for discharge purposes. Objective Exam Vital Signs Date Time Temp Pulse Resp B/P (MAP) Pulse Ox O2 Delivery O2 Flow Rate FiO2 04/11/18 15:45 97.7 101 16 114/65 (81) 91 Nasal Cannula 1.00 04/11/18 14:34 92 Nasal Cannula 1.50 04/11/18 09:00 Nasal Cannula 2.00 04/11/18 05:27 98.1 92 18 144/72 (96) 95 Nasal Cannula 2.00 04/10/18 21:03 Nasal Cannula 2.00 04/10/18 17:30 99.0 88 18 133/78 (96) 95 Nasal Cannula 2.00 I & O 04/11/18 07:00 Intake Total 240 ml Balance 240 ml Capillary Refill : General Appearance: No Apparent Distress Respiratory: Lungs Clear Cardiovascular: Regular Rate, Rhythm Neurologic/Psychiatric: Other (sleeping) Assessment/Plan Assessment/Plan Assess & Plan/Chief Complaint 1. Recent pneumonia with sepsis and respiratory failure-- oxygen down to 2 liters 2. Weakness--PT and OT 3. COPD with recent acute exacerbation--improved 4. Depression--zoloft resumed 5. Hypothyroidism--home levothyroxine resumed 6. Constipation--improved, had diarrhea overnight but better today 7. Acute Anemia---added MV with iron Clinical Quality Measures DVT/VTE Risk/Contraindication: Risk Factor Score Per Nursin RFS Level Per Nursing on Admit: 4+=Very High AMEYA PEREZ DO Apr 11, 2018 17:19
[2018-04-11] MEDS: rOPINIRole 0.25 MG (REQUIP) TAB PO SCH (20:35)
[2018-04-11] MEDS: MONTELUKAST 10 MG (SINGULAIR) TAB PO SCH (20:35)
[2018-04-11] MEDS: SERTRALINE 50 MG (ZOLOFT) TABLET PO SCH (20:35)
[2018-04-11] MEDS: ATORVASTATIN 40 MG (LIPITOR) TABLET PO SCH (20:35)
[2018-04-12 05:32] VITALS: BP 112/57
[2018-04-12] MEDS: MULTIVIT W/MINERALS TAB (THERAGRAN M) PO SCH (06:19)
[2018-04-12] MEDS: LACTOBACILLUS Acidoph/Bulgar 1 GM (LACTINEX) PACKET PO SCH ×4 (06:19→20:25)
[2018-04-12] MEDS: LEVOTHYROXINE 112 MCG (LEVOTHROID) TAB PO SCH (06:19)
[2018-04-12] MEDS: VITAMIN D3 1,000 UNITS (CHOLECALCIFEROL) TABLET PO SCH (08:01)
[2018-04-12] MEDS: ASPIRIN E.C. 81 MG (ECOTRIN) TAB PO SCH (08:01)
[2018-04-12] MEDS: FAMOTIDINE 20 MG (PEPCID) TABLET PO SCH ×2 (08:01→20:25)
[2018-04-12] MEDS: LORATADINE (CLARITIN) 10 MG TAB PO SCH (08:01)
[2018-04-12] MEDS: SENNA W/DOCUSATE (SENOKOT S) TABLET PO SCH ×2 (08:03→20:25)
[2018-04-12] MEDS: TRIAMCINOLONE 0.1% CR (KENALOG) 15 GM TUBE TOP SCH ×2 (08:03→20:25)
--- NOTE | 2018-04-12 09:23 | Occupational Ther Daily Note ---
OT Current Status-Daily Note Subjective Pt stated that she felt much better today. Appearance Pt in recliner, dressed, alert, and ready to work with OT. Mental Status/Objective Patient Orientation: Person, Place, Time, Situation Therapy Code Descriptions/Definitions Functional [place] Measure: 0=Not Assessed/NA 4=Minimal Assistance 1=Total Assistance 5=Supervision or Setup 2=Maximal Assistance 6=Modified [place] 3=Moderate Assistance 7=Complete [place] Attachments: Oxygen O2 on 2L. ADL-Treatment Therapy Code Descriptions/Definitions Functional [place] Measure: 0=Not Assessed/NA 4=Minimal Assistance 1=Total Assistance 5=Supervision or Setup 2=Maximal Assistance 6=Modified [place] 3=Moderate Assistance 7=Complete [place] Therapy Quality Codes: 6 Independent with activity with or without an assistive device 5 Patient requires set up or clean up by helper. Patient completes activity by themselves 4 Supervision or touching assist (CGA). [place] provide cues , steadying assist 3 The helper provides less than half the effort to complete the activity 2 The helper provides more than half the effort to complete the activity 1 Dependent. The helper does all the effort to complete an activity 7 Patient refused to complete or attempt activity 9 The patient did not perform the activity before the current illness or injury 88 Not attempted due to Medical conditions or safety concerns Grooming (FIM): 5 (Pt groomed at sink with walker. Pt brushed teeth and washed face independently, but required assist to comb the back of her hair. SBA.) Transfers (B, C, W/C) (FIM): 4 (Pt transfers SBA from recliner to walker, walker to/from chair, walker to bed. Pt ambulates CGA. ) Pt requested shower today, due to maintenance issue there was no hot water. Notified nursing of request for shower when hot water available. Other Treatment Pt ambulated to therapy gym, CGA. Pt participated in 10 minutes of arm bike for increased activity endurance on mod resistance. Pt participated in peg dominos to increase pincher web site admin and cognition. Pt ambulated to room, transferred to bed. All needs met, Pt supine in bed. O2 on 2L. Education OT Patient Education: Correct positioning, Energy conservation, Exercise program, Modified ADL techniques, Progress toward Goal/Update tx plan, Purpose of tx/functional activities, Reviewed precautions, Rehab process, Transfer techniques Teaching Recipient: Patient Teaching Methods: Demonstration, Discussion Response to Teaching: Verbalize Understanding, Return Demonstration OT Short Term Goals Short Term Goals Time Frame: Apr 16, 2018 Eating(FIM): 5 Grooming(FIM): 4 Bathing(FIM): 4 Upper Body Dressing(FIM): 4 Lower Body Dressing(FIM): 4 Toileting(FIM): 4 Transfers (B,C,W/C) (FIM): 4 (met) Toilet/Commode Transfer(FIM): 4 Shower Transfer(FIM): 4 Additional Short Term Goals: 1-Demonstrate ADL Tasks, 2-Verbalize Understanding , 3-ImproveStrength/Yolanda 1=Demonstrate adherence to instructed precautions during ADL tasks. 2=Patient will verbalize/demonstrate understanding of assistive devices/ modifications for ADL. 3=Patient will improve strength/tolerance for activity to enable patient to perform ADL's. OT Stock Chaser Goals Care Home Goals Time Frame: Apr 30, 2018 Eating (FIM): 6 Eating (QC): 6 Groomin Oral Hygiene (QC): 6 Bathing(FIM): 5 Shower/Bathe Self (QC): 5 Upper Body Dressing(FIM): 6 Upper Body Dressing (QC): 6 Lower Body Dressing(FIM): 5 Lower Body Dressing (QC): 5 On/Off Footwear (QC): 5 Toileting(FIM): 6 Toileting Hygiene (QC): 6 Transfers (B,C,W/C) (FIM): 6 Toilet/Commode Transfer(FIM): 6 Toilet/Commode Transfer (QC): 6 Shower Transfer(FIM): 5 Additional Goals: 1-Demonstrate ADL Tasks, 2-Verbalize Understanding, 3- ImproveStrength/Yolanda 1=Demonstrate adherence to instructed precautions during ADL tasks. 2=Patient will verbalize/demonstrate understanding of assistive devices/ modifications for ADL. 3=Patient will improve strength/tolerance for activity to enable patient to perform ADL's. OT Education/Plan Problem List/Assessment Assessment: Decreased Activ Tolerance, Decreased UE Strength, Impaired Cognition, Impaired I ADL's, Impaired Self-Care Skills, Restricted Funct UE ROM Discharge Recommendations Plan/Recommendations: Continue POC Treatment Plan/Plan of Care Treatment,Training & Education: Yes Patient would benefit from OT for education, treatment and training to promote independence in ADL's, mobility, safety and/or upper extremity function for ADL' s. Plan of Care: ADL Retraining, Cognitive Retraining, Functional Mobility, Group Exercise/Act as Ind, UE Funct Exercise/Act Treatment Duration: Apr 30, 2018 Frequency: 5 times per week Estimated Hrs Per Day: 1.5 hours per day Agreement: Yes Rehab Potential: Good Time/GCodes Start Time: 08:30 Stop Time: 09:15 Total Time Billed (hr/min): 45 Billed Treatment Time 1, ADL x 15 minutes, EX x 15 minutes, FX x 15 minutes. KIRSTY VORA OT Apr 12, 2018 09:23
--- NOTE | 2018-04-12 11:04 | Physical Therapy Daily Note ---
PT Daily Note-Current Subjective Pt. agrees to rx and states she is giving her all and hopes to go home Mon. Pain Numeric Pain Scale: 0-No Pain Mental Status Patient Orientation: Person, Place, Time, Situation Attachments: Oxygen (2L) Transfers Therapy Code Descriptions/Definitions Functional [place] Measure: 0=Not Assessed/NA 4=Minimal Assistance 1=Total Assistance 5=Supervision or Setup 2=Maximal Assistance 6=Modified [place] 3=Moderate Assistance 7=Complete [place] Therapy Quality Codes: 6 Independent with activity with or without an assistive device 5 Patient requires set up or clean up by helper. Patient completes activity by themselves 4 Supervision or touching assist (CGA). [place] provide cues , steadying assist 3 The helper provides less than half the effort to complete the activity 2 The helper provides more than half the effort to complete the activity 1 Dependent. The helper does all the effort to complete an activity 7 Patient refused to complete or attempt activity 9 The patient did not perform the activity before the current illness or injury 88 Not attempted due to Medical conditions or safety concerns Transfers (B, C, W/C) (FIM): 6 Scootin Rollin Supine to/from Sit: 6 Sit to/from Stand: 6 Bed to/from Chair: 6 Weight Bearing Right Lower Extremity: Right Full Weight Bearing Left Lower Extremity: Left Full Weight Bearing Gait Training Does the Patient Walk?: Yes Gait (FIM): 5 Distance (FIM): 3=150 ft (170x2) Gait Level of Assist: 5 Gait Persons Needed: 1 Gait Assistive Device: FWW assist for O2 only Stair Training Stair Training: Handrails/: 2 handrails Stairs (FIM): 2 #of Steps: 4 Stairs: Pattern: Reciprocal Level of Assist: 4 Exercises Supine Ex: Bridging, Ankle pumps, Quad Set, Rolling, Glut sets, Heel Slides, Short Arc Quads, Scooting, Straight leg raise, Hip abd/add Supine Reps: 15 Seated Therapy Exercises: Ankle pumps, Sit to stand, Long arc quads, Hip flexion Seated Reps: 10 NuStep Minutes: 8 NuStep Workload: 3 Assessment Current Status: Good Progress PT Short Term Goals Short Term Goals Time Frame: Apr 09, 2018 Transfers (B,C,W/C) (FIM): 4 (met) Gait (FIM): 2 (met) Gait Distance Comment: 50' Gait Level of Assist: 4 Gait Assistive Device: FWW Wheelchair Distance: 20' PT Medical Office Assistant Goals Medical Office Assistant Goals PT Group Home Goals Time Frame: Apr 23, 2018 Transfers (B,C,W/C) (FIM): 5 Sit to Lying (QC): 4 Lying-Sitting on Side/Bed(QC): 4 Sit to Stand (QC): 4 Rollin Roll Left to Right (QC): 4 Chair/Haz-kg-Fqtkt Xfer(QC): 4 Car Transfer (QC): 4 Gait (FIM): 5 Distance: 150' Walk 10 feet (QC): 4 Walk 10ft-Uneven Surface(QC): 4 Walk 50ft with 2 Turns (QC): 4 Walk 150 ft (QC): 4 Gait Level of Assist: 5 Gait Assistive Device: FWW Wheelchair (FIM): 5 Distance: 150' Wheelchair Level of Assist: 5 Wheel 50 feet with 2 turns (QC: 4 Stairs (FIM): 2 # of Steps: 4 1 Step (curb) (QC): 4 4 Steps (QC): 4 12 Steps (QC): 4 Stairs Level Of Assist: 4 PT Plan Treatment/Plan Treatment Plan: Continue Plan of Care Treatment Plan: Bed Mobility, Concurrent Therapy, Education, Functional Activity Yolanda, Functional Strength, Group Therapy, Gait, Safety, Therapeutic Exercise, Transfers Treatment Duration: Apr 23, 2018 Frequency: At least 5 of 7 days/Wk (IRF) Estimated Hrs Per Day: 1.5 hours per day Patient and/or Family Agrees t: Yes Safety Risks/Education Patient Education: Gait Training, Transfer Techniques, Steps, Correct Positioning, Safety Issues Teaching Recipient: Patient Teaching Methods: Demonstration, Discussion Response to Teaching: Verbalize Understanding, Return Demonstration Time/GCodes Time In: 1000 Time Out: 1100 Total Billed Treatment Time: 60 Total Billed Treatment 1,EX35m,GT15m,FA10m G Codes Necessary: LIDA Rosado SITE LEASING AGENT Apr 12, 2018 11:04
[2018-04-12] MEDS: RT-ADVAIR HFA 115/21 MCG PER PUFF IH SCH ×2 (11:11→20:35)
[2018-04-12] MEDS: RT-ALBUTEROL/IPRATROPIUM 3 ML (DUONEB) VIAL INH SCH ×3 (11:11→20:35)
[2018-04-12] MEDS: ENOXAPARIN 40 MG/0.4 ML (LOVENOX) SYR SC SCH (11:37)
--- NOTE | 2018-04-12 11:42 | Progress Note (SOAP) ---
Subjective Date Seen by a Provider: Apr 12, 2018 Time Seen by a Provider: 10:30 Subjective/Events-last exam Fwup recent pneumonia with sepsis and respiratory failure, COPD, weakness. No further diarrhea. In therapy room doing stairs. Getting stronger per PT. Objective Exam Vital Signs Date Time Temp Pulse Resp B/P (MAP) Pulse Ox O2 Delivery O2 Flow Rate FiO2 04/12/18 11:18 Nasal Cannula 1.00 04/12/18 11:11 91 Nasal Cannula 1.00 04/12/18 09:00 Nasal Cannula 2.00 04/12/18 05:32 99.6 85 18 112/57 (75) 95 Nasal Cannula 2.00 04/11/18 21:13 Nasal Cannula 2.00 04/11/18 17:49 Nasal Cannula 2.00 04/11/18 15:45 97.7 101 16 114/65 (81) 91 Nasal Cannula 1.00 04/11/18 14:34 92 Nasal Cannula 1.50 I & O 04/12/18 07:00 Intake Total 800 ml Balance 800 ml Capillary Refill : General Appearance: No Apparent Distress Respiratory: Lungs Clear Cardiovascular: Regular Rate, Rhythm Gastrointestinal: normal bowel sounds, non tender, soft Neurologic/Psychiatric: Alert, Oriented x3 Skin: Warm/Dry Assessment/Plan Assessment/Plan Assess & Plan/Chief Complaint 1. Recent pneumonia with sepsis and respiratory failure-- oxygen down to 2 liters 2. Weakness--PT and OT, reassess Sunday for DC planning 3. COPD with recent acute exacerbation--improved 4. Depression--zoloft resumed 5. Hypothyroidism--home levothyroxine resumed 6. Constipation--improved, had diarrhea episode for about 24hrs but has resolved 7. Acute Anemia---added MV with iron Clinical Quality Measures DVT/VTE Risk/Contraindication: Risk Factor Score Per Nursin RFS Level Per Nursing on Admit: 4+=Very High AMEYA PEREZ DO Apr 12, 2018 11:42
--- NOTE | 2018-04-12 12:27 | Speech Therapy Daily Note ---
Speech Daily Progress Note Subjective Date Seen by Provider: Apr 12, 2018 Time Seen by Provider: 00:30 Patient was getting in to her bed when I arrived to rest before lunch. Objective Patient completed memory activities at 90% with minimal cues or repetitions. Assessment Assessment Current Status: Good Progress Treatment Plan Continue Plan of Care Communication Comprehension: 7 Expression: 7 Social Cognition Social Interaction: 7 Problem Solvin Memory: 7 Speech Short Term Goals Short Term Goals Short Term Goals Patient will demonstrate safety awareness within her living environment without cues. Speech Recreation Director Goals Group Home Goals Patient will demonstrate safety and independence upon her release from this hospital for safe return home. Speech-Plan Patient/Family Goals Patient/Family Goals: Patient plans to return home with family support post rehab. Treatment Plan Speech Therapy Treatment Plan: Continue Plan of Care Patient has made significant progress through skilled ST services. Treatment Duration: Apr 19, 2018 Frequency: Modified Program (IRF) Estimated Hrs Per Day: Other Rehab Potential: Good Barriers to Learning: Patient is weak and tires easily, requiring rest breaks occasionally. Pt/Family Agrees to Plan: Yes Safety Risks/Education Teaching Recipient: Patient Teaching Methods: Discussion Response to Teaching: Verbalize Understanding Education Topics Provided: Patient's safety within her immediate environment. Time Speech Therapy Time In: 11:20 Speech Therapy Time Out: 11:50 Total Billed Time: 30 Billed Treatment Time 1, ALISON Navas Apr 12, 2018 12:27
--- NOTE | 2018-04-12 14:51 | Therapy Group Daily Note ---
Therapy Daily Group Note Patient Education Topic Other List Below (ARU orientation, exercise benefits) Exercises LE Seated Exercise, UE Exercise Other/Notes Pt ambulated using FWW with CGA to [facility] area for OT/PT group. Group consisted of introductions (name, place living, icebreaker questions), benefits of exercise, peer led UE/LE seated exercises and orientation to ARU. Pt introduced self appropriately actively listened to peers introduce themselves. Pt was able to read exercise card and lead peers in an exercise then completed others without difficulty. Pt was able to answer icebreaker questions after rolling/throwing juThreadflipo dice. Pt asked appropriate questions to peers. Verbalized understanding of educational topics. After group, pt sitting in recliner with call light/phone in reach. All needs met in room. Start Time: 13:00 Stop Time: 14:20 Total Billed Treatment Time: 80 Total Billed Treatment 1-GRP NHAN OSWALD Apr 12, 2018 14:51
[2018-04-12 17:35] VITALS: BP 115/71
[2018-04-12] MEDS: ATORVASTATIN 40 MG (LIPITOR) TABLET PO SCH (20:25)
[2018-04-12] MEDS: SERTRALINE 50 MG (ZOLOFT) TABLET PO SCH (20:25)
[2018-04-12] MEDS: MONTELUKAST 10 MG (SINGULAIR) TAB PO SCH (20:25)
[2018-04-12] MEDS: rOPINIRole 0.25 MG (REQUIP) TAB PO SCH (20:25)
[2018-04-13 05:16] VITALS: BP 124/79
[2018-04-13] MEDS: LEVOTHYROXINE 112 MCG (LEVOTHROID) TAB PO SCH (06:00)
[2018-04-13] MEDS: MULTIVIT W/MINERALS TAB (THERAGRAN M) PO SCH (06:00)
[2018-04-13] MEDS: LACTOBACILLUS Acidoph/Bulgar 1 GM (LACTINEX) PACKET PO SCH ×4 (06:00→20:47)
[2018-04-13] MEDS: RT-ALBUTEROL/IPRATROPIUM 3 ML (DUONEB) VIAL INH SCH (06:52)
[2018-04-13] MEDS: RT-ADVAIR HFA 115/21 MCG PER PUFF IH SCH ×2 (06:53→19:53)
--- NOTE | 2018-04-13 08:09 | PM & R (SOAP) Progress Note ---
Subjective This was a face to face visit with the patient. Date Seen by Provider: Apr 13, 2018 Time Seen by Provider: 07:45 Subjective/Events-last exam Patient was seen in her room this AM Patient Modified Independent for transfers Wishes resp treatments to be adjusted as they are causing tremors.Current meds reviewed.will adjust Date Identified: Apr 13, 2018 Time Identified: 08:00 Medication Intervention: Resp tretments adjusted Resp tretements changed to Xopenex Review of Systems Neurological: Other (tremors action) Objective Physician Exam Last Set of Vital Signs Vital Signs Date Time Temp Pulse Resp B/P (MAP) Pulse Ox O2 Delivery O2 Flow Rate FiO2 04/13/18 06:53 96 Nasal Cannula 2.00 04/13/18 05:16 98.1 98 18 124/79 (94) Capillary Refill : I&O Intake and Output 04/13/18 00:00 Intake Total 1040 ml Balance 1040 ml Intake Oral 1040 ml # Voids 4 # Bowel Movements 2 General: Alert, Oriented X3, Cooperative, No Acute Distress HEENT: Atraumatic, PERRLA, EOMI, Mucous Memb Moist/[place], Other (02 by N/C in place) Neck: Supple, No JVD Lungs: Other (Decreased brath sounds at bases) Heart: Regular Rate Abdomen: Normal Bowel Sounds, Soft, No Tenderness Extremities: No Edema, Other (tremors) Skin: No Rashes, No Breakdown Neuro: Other (Generalized weakness) Psych/Mental Status: Mental Status NL Assessment/Plan Assessment and Plan general debil secondary to Acute exacerbation of COPD Tremors 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
[2018-04-13] MEDS ORDERED: RT-ALBUTEROL/IPRATROPIUM 3 ML (DUONEB) VIAL INH PRN (08:15)
[2018-04-13] MEDS: SENNA W/DOCUSATE (SENOKOT S) TABLET PO SCH ×2 (08:43→20:48)
[2018-04-13] MEDS: TRIAMCINOLONE 0.1% CR (KENALOG) 15 GM TUBE TOP SCH ×2 (08:43→20:48)
[2018-04-13] MEDS: ASPIRIN E.C. 81 MG (ECOTRIN) TAB PO SCH (08:43)
[2018-04-13] MEDS: LORATADINE (CLARITIN) 10 MG TAB PO SCH (08:43)
[2018-04-13] MEDS: FAMOTIDINE 20 MG (PEPCID) TABLET PO SCH ×2 (08:43→20:47)
[2018-04-13] MEDS: VITAMIN D3 1,000 UNITS (CHOLECALCIFEROL) TABLET PO SCH (08:43)
[2018-04-13] MEDS: ENOXAPARIN 40 MG/0.4 ML (LOVENOX) SYR SC SCH (11:12)
[2018-04-13] MEDS ORDERED: RT-ALBUTEROL SULF 2.5 MG/3 ML PRE-MIX VIAL INH SCH (14:00)
[2018-04-13 17:10] VITALS: BP 113/73
[2018-04-13] MEDS: ATORVASTATIN 40 MG (LIPITOR) TABLET PO SCH (20:47)
[2018-04-13] MEDS: MONTELUKAST 10 MG (SINGULAIR) TAB PO SCH (20:47)
[2018-04-13] MEDS: SERTRALINE 50 MG (ZOLOFT) TABLET PO SCH (20:47)
[2018-04-13] MEDS: rOPINIRole 0.25 MG (REQUIP) TAB PO SCH (20:47)
[2018-04-13] MEDS: RT-LEVALBUTEROL (XOPENEX) 1.25 MG/3 ML NEB NON-FORMULARY INH SCH (21:59)
[2018-04-14 06:00] VITALS: BP 129/76
[2018-04-14] MEDS: MULTIVIT W/MINERALS TAB (THERAGRAN M) PO SCH (06:41)
[2018-04-14] MEDS: LEVOTHYROXINE 112 MCG (LEVOTHROID) TAB PO SCH (06:41)
[2018-04-14] MEDS: LACTOBACILLUS Acidoph/Bulgar 1 GM (LACTINEX) PACKET PO SCH ×4 (06:41→20:52)
[2018-04-14] MEDS: RT-ADVAIR HFA 115/21 MCG PER PUFF IH SCH ×2 (08:32→20:50)
[2018-04-14] MEDS: RT-LEVALBUTEROL (XOPENEX) 1.25 MG/3 ML NEB NON-FORMULARY INH SCH ×3 (08:32→20:50)
[2018-04-14] MEDS: ASPIRIN E.C. 81 MG (ECOTRIN) TAB PO SCH (08:48)
[2018-04-14] MEDS: VITAMIN D3 1,000 UNITS (CHOLECALCIFEROL) TABLET PO SCH (08:48)
[2018-04-14] MEDS: LORATADINE (CLARITIN) 10 MG TAB PO SCH (08:48)
[2018-04-14] MEDS: FAMOTIDINE 20 MG (PEPCID) TABLET PO SCH ×2 (08:48→20:51)
[2018-04-14] MEDS: SENNA W/DOCUSATE (SENOKOT S) TABLET PO SCH ×2 (08:49→20:59)
[2018-04-14] MEDS: TRIAMCINOLONE 0.1% CR (KENALOG) 15 GM TUBE TOP SCH ×2 (08:50→21:00)
[2018-04-14] MEDS: ENOXAPARIN 40 MG/0.4 ML (LOVENOX) SYR SC SCH (11:16)
[2018-04-14 15:50] VITALS: BP 120/69
[2018-04-14] MEDS: rOPINIRole 0.25 MG (REQUIP) TAB PO SCH (20:51)
[2018-04-14] MEDS: MONTELUKAST 10 MG (SINGULAIR) TAB PO SCH (20:51)
[2018-04-14] MEDS: ATORVASTATIN 40 MG (LIPITOR) TABLET PO SCH (20:51)
[2018-04-14] MEDS: SERTRALINE 50 MG (ZOLOFT) TABLET PO SCH (20:51)
[2018-04-15 05:10] VITALS: BP 137/75
[2018-04-15] MEDS: LACTOBACILLUS Acidoph/Bulgar 1 GM (LACTINEX) PACKET PO SCH ×4 (06:18→20:28)
[2018-04-15] MEDS: MULTIVIT W/MINERALS TAB (THERAGRAN M) PO SCH (06:18)
[2018-04-15] MEDS: LEVOTHYROXINE 112 MCG (LEVOTHROID) TAB PO SCH (06:18)
[2018-04-15] MEDS: RT-LEVALBUTEROL (XOPENEX) 1.25 MG/3 ML NEB NON-FORMULARY INH SCH ×3 (08:11→22:11)
[2018-04-15] MEDS: RT-ADVAIR HFA 115/21 MCG PER PUFF IH SCH ×2 (08:13→22:12)
[2018-04-15] MEDS: LORATADINE (CLARITIN) 10 MG TAB PO SCH (09:46)
[2018-04-15] MEDS: ASPIRIN E.C. 81 MG (ECOTRIN) TAB PO SCH (09:46)
[2018-04-15] MEDS: VITAMIN D3 1,000 UNITS (CHOLECALCIFEROL) TABLET PO SCH (09:46)
[2018-04-15] MEDS: FAMOTIDINE 20 MG (PEPCID) TABLET PO SCH ×2 (09:46→20:28)
[2018-04-15] MEDS: TRIAMCINOLONE 0.1% CR (KENALOG) 15 GM TUBE TOP SCH ×2 (09:47→20:29)
[2018-04-15] MEDS: SENNA W/DOCUSATE (SENOKOT S) TABLET PO SCH ×2 (09:51→20:28)
--- NOTE | 2018-04-15 10:05 | Occupational Ther Daily Note ---
OT Current Status-Daily Note Subjective No pain reported. Appearance Pt. in chair. Agrees to shower. Mental Status/Objective Patient Orientation: Person, Place, Time, Situation Therapy Code Descriptions/Definitions Functional [place] Measure: 0=Not Assessed/NA 4=Minimal Assistance 1=Total Assistance 5=Supervision or Setup 2=Maximal Assistance 6=Modified [place] 3=Moderate Assistance 7=Complete [place] ADL-Treatment Therapy Code Descriptions/Definitions Functional [place] Measure: 0=Not Assessed/NA 4=Minimal Assistance 1=Total Assistance 5=Supervision or Setup 2=Maximal Assistance 6=Modified [place] 3=Moderate Assistance 7=Complete [place] Therapy Quality Codes: 6 Independent with activity with or without an assistive device 5 Patient requires set up or clean up by helper. Patient completes activity by themselves 4 Supervision or touching assist (CGA). [place] provide cues , steadying assist 3 The helper provides less than half the effort to complete the activity 2 The helper provides more than half the effort to complete the activity 1 Dependent. The helper does all the effort to complete an activity 7 Patient refused to complete or attempt activity 9 The patient did not perform the activity before the current illness or injury 88 Not attempted due to Medical conditions or safety concerns Grooming (FIM): 5 (Pt. able to brush hair and teeth after set up at sink.) Oral Hygiene (QC): 5 Bathing (FIM): 5 (SBA to shower self.) Shower/Bathe Self (QC): 4 Upper Body (FIM): 5 (SBA to don shirt and bra.) Upper Body Dressing (QC): 4 Lower Body Dressing (FIM): 5 (SBA and cues to don LE clothing. Pt. dons socks , brief, and pants.) Lower Body Dressing (QC): 4 (Pt. uses sock aide for socks.) On/Off Footwear (QC): 4 Toileting (FIM): 5 (SBA to cleanse all parts.) Toileting Hygiene (QC): 4 Transfers (B, C, W/C) (FIM): 5 (SBA with walker to transfer and ambulate.) Toilet/Commode Transfer (FIM): 5 Toilet Transfer (QC): 4 Shower Transfer(FIM): 5 Pt. requires increased time to complete tasks, as she fatigues easily and needs rest breaks. Pt. on 2 L 02 throughout session. Sats at 95% when checked. After ADLs in room, pt. ambulated with SBA to laundry area and able to put laundry into washing machine and start it. Pt. then ambulated to therapy gym and completed simple fine motor task with nuts/bolts for increased overall strengthening. Ambulated back to room with SBA and transferred to bed with SBA. All needs met in room. Education OT Patient Education: Correct positioning, Exercise program, Modified ADL techniques, Progress toward Goal/Update tx plan, Purpose of tx/functional activities, Reviewed precautions, Rehab process, Transfer techniques, Use of adapted equipment Teaching Recipient: Patient Teaching Methods: Demonstration, Discussion Response to Teaching: Verbalize Understanding, Return Demonstration OT Short Term Goals Short Term Goals Time Frame: Apr 16, 2018 Eating(FIM): 5 Grooming(FIM): 4 Bathing(FIM): 4 Upper Body Dressing(FIM): 4 Lower Body Dressing(FIM): 4 Toileting(FIM): 4 Transfers (B,C,W/C) (FIM): 4 (met) Toilet/Commode Transfer(FIM): 4 Shower Transfer(FIM): 4 Additional Short Term Goals: 1-Demonstrate ADL Tasks, 2-Verbalize Understanding , 3-ImproveStrength/Yolanda 1=Demonstrate adherence to instructed precautions during ADL tasks. 2=Patient will verbalize/demonstrate understanding of assistive devices/ modifications for ADL. 3=Patient will improve strength/tolerance for activity to enable patient to perform ADL's. OT Intermediate Goals Intermediate Goals Time Frame: Apr 30, 2018 Eating (FIM): 6 Eating (QC): 6 Groomin Oral Hygiene (QC): 6 Bathing(FIM): 5 Shower/Bathe Self (QC): 5 Upper Body Dressing(FIM): 6 Upper Body Dressing (QC): 6 Lower Body Dressing(FIM): 5 Lower Body Dressing (QC): 5 On/Off Footwear (QC): 5 Toileting(FIM): 6 Toileting Hygiene (QC): 6 Transfers (B,C,W/C) (FIM): 6 Toilet/Commode Transfer(FIM): 6 Toilet/Commode Transfer (QC): 6 Shower Transfer(FIM): 5 Additional Goals: 1-Demonstrate ADL Tasks, 2-Verbalize Understanding, 3- ImproveStrength/Yolanda 1=Demonstrate adherence to instructed precautions during ADL tasks. 2=Patient will verbalize/demonstrate understanding of assistive devices/ modifications for ADL. 3=Patient will improve strength/tolerance for activity to enable patient to perform ADL's. OT Education/Plan Problem List/Assessment Assessment: Decreased Activ Tolerance, Impaired I ADL's, Impaired Self-Care Skills Discharge Recommendations Plan/Recommendations: Continue POC Therapy D/C Recommendations: Home w/ Family Support, Occupational Therapy Home Care Treatment Plan/Plan of Care Treatment,Training & Education: Yes Patient would benefit from OT for education, treatment and training to promote independence in ADL's, mobility, safety and/or upper extremity function for ADL' s. Plan of Care: ADL Retraining, Cognitive Retraining, Functional Mobility, Group Exercise/Act as Ind, UE Funct Exercise/Act Treatment Duration: Apr 30, 2018 Frequency: At least 5 of 7 days/Wk (IRF) Estimated Hrs Per Day: 1.5 hours per day Agreement: Yes Rehab Potential: Good Time/GCodes Start Time: 08:30 Stop Time: 09:45 Total Time Billed (hr/min): 75 Billed Treatment Time 1, ADL x 60minutes, Ex x 15minutes FLEX PAIZ OT Apr 15, 2018 10:05
--- NOTE | 2018-04-15 11:05 | Physical Therapy Daily Note ---
PT Daily Note-Current Subjective Pt. states she really wants to go home today or tomorrow. Pt. states her daughter is off today and her son is off tomorrow for many days and either could take her home and her son would stay with her FT. Pain Numeric Pain Scale: 0-No Pain Mental Status Patient Orientation: Person, Place, Time, Situation Attachments: Oxygen (2L) Transfers Therapy Code Descriptions/Definitions Functional [place] Measure: 0=Not Assessed/NA 4=Minimal Assistance 1=Total Assistance 5=Supervision or Setup 2=Maximal Assistance 6=Modified [place] 3=Moderate Assistance 7=Complete [place] Therapy Quality Codes: 6 Independent with activity with or without an assistive device 5 Patient requires set up or clean up by helper. Patient completes activity by themselves 4 Supervision or touching assist (CGA). [place] provide cues , steadying assist 3 The helper provides less than half the effort to complete the activity 2 The helper provides more than half the effort to complete the activity 1 Dependent. The helper does all the effort to complete an activity 7 Patient refused to complete or attempt activity 9 The patient did not perform the activity before the current illness or injury 88 Not attempted due to Medical conditions or safety concerns Transfers (B, C, W/C) (FIM): 5 Scootin Rollin Roll Left to Right (QC): 5 Supine to/from Sit: 6 Sit to/from Stand: 6 Sit to Lying (QC): 5 Sit to Stand (QC): 5 Chair/Udm-mc-Akkqo Xfer(QC): 4 Bed to/from Chair: 5 Car Transfer (QC): 4 needs FT supervision, pt. attempted to get in car with one foot on floor, stepping with other in to car. had near LOB . This was reviewed and safety concerns /fall risks were shared Weight Bearing Right Lower Extremity: Right Full Weight Bearing Left Lower Extremity: Left Full Weight Bearing Gait Training Does the Patient Walk?: Yes Gait (FIM): 5 Distance (FIM): 3=150 ft (150x2) Walk 10 feet (QC): 5 Walk 50 ft with 2 Turns(QC): 5 Walk 150 ft (QC): 5 Walking 10ft/uneven surface-QC: 4 Gait Level of Assist: 5 Gait Persons Needed: 1 Gait Assistive Device: FWW assist for O2 tank and some cuing for safety Stair Training Stair Training: Handrails/: 2 handrails Stairs (FIM): 4 #of Steps: 4 1 Step (curb) (QC): 4 4 Steps (QC): 4 Stairs: Pattern: Step to Level of Assist: 5 assist for O2 and some cues for sequence Balance Picking up an Object (QC): 3 Exercises Supine Ex: Bridging, Ankle pumps, Quad Set, Rolling, Glut sets, Heel Slides, Short Arc Quads, Scooting, Straight leg raise, Hip abd/add Supine Reps: 15 Assessment Current Status: Good Progress FT supervision is recommended for DC at this time PT Short Term Goals Short Term Goals Time Frame: Apr 09, 2018 Transfers (B,C,W/C) (FIM): 4 (met) Gait (FIM): 2 (met) Gait Distance Comment: 50' Gait Level of Assist: 4 Gait Assistive Device: FWW Wheelchair Distance: 20' PT Correction Goals Mixing Tumbler Operator Goals PT Mixing Tumbler Operator Goals Time Frame: Apr 23, 2018 Transfers (B,C,W/C) (FIM): 5 Sit to Lying (QC): 4 Lying-Sitting on Side/Bed(QC): 4 Sit to Stand (QC): 4 Rollin Roll Left to Right (QC): 4 Chair/Hvy-yv-Qtpgl Xfer(QC): 4 Car Transfer (QC): 4 Gait (FIM): 5 Distance: 150' Walk 10 feet (QC): 4 Walk 10ft-Uneven Surface(QC): 4 Walk 50ft with 2 Turns (QC): 4 Walk 150 ft (QC): 4 Gait Level of Assist: 5 Gait Assistive Device: FWW Wheelchair (FIM): 5 Distance: 150' Wheelchair Level of Assist: 5 Wheel 50 feet with 2 turns (QC: 4 Stairs (FIM): 2 # of Steps: 4 1 Step (curb) (QC): 4 4 Steps (QC): 4 12 Steps (QC): 4 Stairs Level Of Assist: 4 PT Plan Treatment/Plan Treatment Plan: Continue Plan of Care Treatment Plan: Bed Mobility, Concurrent Therapy, Education, Functional Activity Yolanda, Functional Strength, Group Therapy, Gait, Safety, Therapeutic Exercise, Transfers Treatment Duration: Apr 23, 2018 Frequency: At least 5 of 7 days/Wk (IRF) Estimated Hrs Per Day: 1.5 hours per day Patient and/or Family Agrees t: Yes Safety Risks/Education Patient Education: Gait Training, Transfer Techniques, Steps, Correct Positioning, Disease Process, Safety Issues Teaching Recipient: Patient Teaching Methods: Demonstration, Discussion Response to Teaching: Verbalize Understanding, Return Demonstration, Reinforcement Needed Time/GCodes Time In: 1000 Time Out: 1100 Total Billed Treatment Time: 60 Total Billed Treatment 1,FA25m,GT15m,EX20m G Codes Necessary: LIDA Rosado PTA Apr 15, 2018 11:05
[2018-04-15] MEDS: ENOXAPARIN 40 MG/0.4 ML (LOVENOX) SYR SC SCH (11:22)
--- NOTE | 2018-04-15 12:20 | Progress Note (SOAP) ---
Subjective Date Seen by a Provider: Apr 15, 2018 Time Seen by a Provider: 12:18 Subjective/Events-last exam Fwup recent pneumonia with sepsis and respiratory failure, COPD, weakness. Still with loose stools--about 3 a day. Feels much stronger. Anxious to go home. Objective Exam Vital Signs Date Time Temp Pulse Resp B/P (MAP) Pulse Ox O2 Delivery O2 Flow Rate FiO2 04/15/18 09:53 Nasal Cannula 2.00 04/15/18 08:11 95 Nasal Cannula 2.00 04/15/18 05:10 99.0 95 18 137/75 (95) 95 Nasal Cannula 2.00 04/14/18 21:00 Nasal Cannula 2.00 04/14/18 20:50 94 Nasal Cannula 2.00 04/14/18 20:50 Nasal Cannula 2.00 04/14/18 17:07 Nasal Cannula 2.00 04/14/18 15:50 98.3 98 16 120/69 (86) 93 Nasal Cannula 2.00 04/14/18 14:38 94 Nasal Cannula 2.00 I & O 04/15/18 07:00 Intake Total 1050 ml Balance 1050 ml Capillary Refill : General Appearance: No Apparent Distress Neck: Supple Respiratory: Lungs Clear, Decreased Breath Sounds Cardiovascular: Regular Rate, Rhythm Gastrointestinal: normal bowel sounds, non tender, soft Extremity: Non Tender, No Calf Tenderness, No Pedal Edema Neurologic/Psychiatric: Alert, Oriented x3 Skin: Normal Color, Warm/Dry Assessment/Plan Assessment/Plan Assess & Plan/Chief Complaint 1. Recent pneumonia with sepsis and respiratory failure-- oxygen down to 2 liters 2. Weakness--PT and OT, reassess today for DC planning 3. COPD with recent acute exacerbation--improved 4. Depression--zoloft resumed 5. Hypothyroidism--home levothyroxine resumed 6. Diarrhea--on probiotic, check C. Diff 7. Acute Anemia---added MV with iron Clinical Quality Measures DVT/VTE Risk/Contraindication: Risk Factor Score Per Nursin RFS Level Per Nursing on Admit: 4+=Very High AMEYA PEREZ DO Apr 15, 2018 12:20
--- NOTE | 2018-04-15 14:16 | Speech Therapy Daily Note ---
Speech Daily Progress Note Subjective Date Seen by Provider: Apr 15, 2018 Time Seen by Provider: 00:30 Patient was resting in her bed when I arrived in her room. Objective Patient completed memory tasks with 90% accuracy given minimal cues. Assessment Assessment Current Status: Good Progress Treatment Plan Continue Plan of Care Communication Comprehension: 7 Expression: 7 Social Cognition Social Interaction: 7 Problem Solvin Memory: 7 Speech Short Term Goals Short Term Goals Short Term Goals Patient will demonstrate safety awareness within her living environment without cues. Speech Systems Mgr Goals Custodial Goals Patient will demonstrate safety and independence upon her release from this hospital for safe return home. Speech-Plan Patient/Family Goals Patient/Family Goals: Patient is returning home with family support on 04/16/2018. Treatment Plan Speech Therapy Treatment Plan: Continue Plan of Care Patient has met all of her goals. Treatment Duration: Apr 19, 2018 Frequency: Modified Program (IRF) Estimated Hrs Per Day: Other Rehab Potential: Good Barriers to Learning: Patient has memory deficits at times. Pt/Family Agrees to Plan: Yes Safety Risks/Education Teaching Recipient: Patient, Family Teaching Methods: Discussion Response to Teaching: Verbalize Understanding Education Topics Provided: Safety upon her return home. Time Speech Therapy Time In: 13:00 Speech Therapy Time Out: 13:30 Total Billed Time: 30 Billed Treatment Time 1, ALISON Navas Apr 15, 2018 14:16
--- NOTE | 2018-04-15 14:30 | Physical Therapy Daily Note ---
PT Daily Note-Current Subjective Pts daughter and the SW present. Plans made for DC tomorrow with good family support. Pt. wants to go to toilet as well as retrieve laundry from dryer Pain Numeric Pain Scale: 0-No Pain Mental Status Patient Orientation: Normal For Age Attachments: Oxygen Transfers Therapy Code Descriptions/Definitions Functional [place] Measure: 0=Not Assessed/NA 4=Minimal Assistance 1=Total Assistance 5=Supervision or Setup 2=Maximal Assistance 6=Modified [place] 3=Moderate Assistance 7=Complete [place] Therapy Quality Codes: 6 Independent with activity with or without an assistive device 5 Patient requires set up or clean up by helper. Patient completes activity by themselves 4 Supervision or touching assist (CGA). [place] provide cues , steadying assist 3 The helper provides less than half the effort to complete the activity 2 The helper provides more than half the effort to complete the activity 1 Dependent. The helper does all the effort to complete an activity 7 Patient refused to complete or attempt activity 9 The patient did not perform the activity before the current illness or injury 88 Not attempted due to Medical conditions or safety concerns bed, toilet and chair all Mod I to SBA Weight Bearing Right Lower Extremity: Right Full Weight Bearing Left Lower Extremity: Left Full Weight Bearing Gait Training Gait Assistive Device: FWW 200ft, 100ft, 50 ft FWW SBA, assist for O2 and cues for O2 extended tube use, no LOB or incident Treatments pt. opened dryer but did not feel safe to reach deep in to dryer to retrieve clothes, this HAND STRIPPER put them in bag for her to fold in room Assessment Current Status: Good Progress meets goals, family committed to pts SBA care at home, dtr a nurse PT Short Term Goals Short Term Goals Time Frame: Apr 09, 2018 Transfers (B,C,W/C) (FIM): 4 (met) Gait (FIM): 2 (met) Gait Distance Comment: 50' Gait Level of Assist: 4 Gait Assistive Device: FWW Wheelchair Distance: 20' PT Support Director Goals Support Director Goals PT Support Director Goals Time Frame: Apr 23, 2018 Transfers (B,C,W/C) (FIM): 5 Sit to Lying (QC): 4 Lying-Sitting on Side/Bed(QC): 4 Sit to Stand (QC): 4 Rollin Roll Left to Right (QC): 4 Chair/Myf-zm-Fukte Xfer(QC): 4 Car Transfer (QC): 4 Gait (FIM): 5 Distance: 150' Walk 10 feet (QC): 4 Walk 10ft-Uneven Surface(QC): 4 Walk 50ft with 2 Turns (QC): 4 Walk 150 ft (QC): 4 Gait Level of Assist: 5 Gait Assistive Device: FWW Wheelchair (FIM): 5 Distance: 150' Wheelchair Level of Assist: 5 Wheel 50 feet with 2 turns (QC: 4 Stairs (FIM): 2 # of Steps: 4 1 Step (curb) (QC): 4 4 Steps (QC): 4 12 Steps (QC): 4 Stairs Level Of Assist: 4 PT Plan Treatment/Plan Treatment Plan: Continue Plan of Care Treatment Plan: Bed Mobility, Concurrent Therapy, Education, Functional Activity Yolanda, Functional Strength, Group Therapy, Gait, Safety, Therapeutic Exercise, Transfers Treatment Duration: Apr 23, 2018 Frequency: At least 5 of 7 days/Wk (IRF) Estimated Hrs Per Day: 1.5 hours per day Patient and/or Family Agrees t: Yes Safety Risks/Education Patient Education: Gait Training, Transfer Techniques, Correct Positioning, Disease Process, Safety Issues Teaching Recipient: Patient Teaching Methods: Demonstration, Discussion Response to Teaching: Verbalize Understanding, Return Demonstration, Reinforcement Needed Time/GCodes Time In: 1405 Time Out: 1425 Total Billed Treatment Time: 20 Total Billed Treatment 1,FA20m G Codes Necessary: LIDA Rosado PTA Apr 15, 2018 14:30
[2018-04-15 17:20] VITALS: BP 119/74
--- NOTE | 2018-04-15 19:23 | PM & R (SOAP) Progress Note ---
Subjective This was a face to face visit with the patient. Date Seen by Provider: Apr 15, 2018 Time Seen by Provider: 18:25 Subjective/Events-last exam Patient was seen in her room this evening Discussed with SW Discharge set for tomorrow to home with family Tremors better with change to Xopenex treatments.Patient SBA for transfers Date Identified: Apr 15, 2018 Time Identified: 19:15 Medication Intervention: Discharge meds reviewed Review of Systems Pulmonary: Dyspnea Objective Physician Exam Last Set of Vital Signs Vital Signs Date Time Temp Pulse Resp B/P (MAP) Pulse Ox O2 Delivery O2 Flow Rate FiO2 04/15/18 17:20 98.0 93 20 119/74 (89) 95 Nasal Cannula 2.00 Capillary Refill : I&O Intake and Output 04/15/18 00:00 Intake Total 1200 ml Balance 1200 ml Intake Oral 1200 ml # Voids 5 # Bowel Movements 3 General: Alert, Oriented X3, Cooperative, No Acute Distress HEENT: Atraumatic, PERRLA, EOMI, Mucous Memb Moist/[place], Other (02 by N/C in place) Neck: Supple, No JVD Lungs: Other (Decreased brath sounds at bases) Heart: Regular Rate Abdomen: Normal Bowel Sounds, Soft, No Tenderness Extremities: No Edema, Other (tremors) Skin: No Rashes, No Breakdown Neuro: Other (Generalized weakness) Psych/Mental Status: Mental Status NL Assessment/Plan Assessment and Plan general debil secondary to Acute exacerbation of COPd COPD 02 dependent Obesity Hypothyroidism on replacement RLS on Requip tremors improved with switch to Xopenex Depression on med DVT on Lovenox subcut Constipation and nausea resolved Mild cognitive deficits Plan Discharge to home with family tomorrow F/U with DR Salvador see orders (1) COPD exacerbation Assessment & Plan: Discharge meds reviewed back on baseline 02 needs Status: Acute Co-Morbidities that are continuing to impact the rehab process: (include details ) ANTONIETA RUBIO MD Apr 15, 2018 19:23
[2018-04-15] MEDS ORDERED: ACID1GRA2 PO (19:28)
[2018-04-15] MEDS: SERTRALINE 50 MG (ZOLOFT) TABLET PO SCH (20:28)
[2018-04-15] MEDS: MONTELUKAST 10 MG (SINGULAIR) TAB PO SCH (20:28)
[2018-04-15] MEDS: rOPINIRole 0.25 MG (REQUIP) TAB PO SCH (20:28)
[2018-04-15] MEDS: ATORVASTATIN 40 MG (LIPITOR) TABLET PO SCH (20:28)
[2018-04-16] MEDS: MULTIVIT W/MINERALS TAB (THERAGRAN M) PO SCH (05:49)
[2018-04-16] MEDS: LACTOBACILLUS Acidoph/Bulgar 1 GM (LACTINEX) PACKET PO SCH ×2 (05:50→09:30)
[2018-04-16] MEDS: LEVOTHYROXINE 112 MCG (LEVOTHROID) TAB PO SCH (05:50)
[2018-04-16 06:03] VITALS: BP 116/72
[2018-04-16] MEDS: LORATADINE (CLARITIN) 10 MG TAB PO SCH (08:37)
[2018-04-16] MEDS: FAMOTIDINE 20 MG (PEPCID) TABLET PO SCH (08:37)
[2018-04-16] MEDS: VITAMIN D3 1,000 UNITS (CHOLECALCIFEROL) TABLET PO SCH (08:37)
[2018-04-16] MEDS: SENNA W/DOCUSATE (SENOKOT S) TABLET PO SCH (08:38)
[2018-04-16] MEDS: ASPIRIN E.C. 81 MG (ECOTRIN) TAB PO SCH (08:38)
--- NOTE | 2018-04-16 08:39 | Therapy Team Discharge Summary ---
Therapy Discharge Summary Discharge Recommendations Date of Discharge Therapy D/C Recommendations: Home w/ Family Support, Occupational Therapy Home Care Physical Therapy This patient has been seen on ARU post lengthy acute hospital stay for pneumonia /sepsis. Prior to acute hospital admit, she was living alone and indep with all mobility at a community level. Upon admit to this unit, she was mod assist with transfers, walked 15 ft with FWW with min assist, max assist with wc mobility and unable to attempt stairs due to weakness and safety concerns. Treatment has focused on functional strength and balance to improve gait and transfers; we have also spent much time on safety education/training. Pt has made functional gains and is very anxious to return home. She is SBA with gait and transfers and scored a 4 on stairs. She has met most LTG's; however, recommend supervision with mobility at home due to noted safety concerns, family is aware. Will discharge pt this date to home with daughter and son assisting. DC PT. Occupational Therapy Decreased Activ Tolerance, Impaired I ADL's, Impaired Self-Care Skills PT Signal Worker Goals Signal Worker Goals PT Signal Worker Goals Time Frame: Apr 23, 2018 Transfers (B,C,W/C) (FIM): 5 (met) Roll Left to Right (QC): 4 Sit to Lying (QC): 4 Lying-Sitting on Side/Bed(QC): 4 Sit to Stand (QC): 4 Chair/Orv-vv-Tttpy Xfer(QC): 4 Car Transfer (QC): 4 (met) Gait (FIM): 5 (met) Distance: 150' Walk 10 feet (QC): 4 Walk 10ft-Uneven Surface(QC): 4 Walk 50ft with 2 Turns (QC): 4 Walk 150 ft (QC): 4 Gait Level of Assist: 5 Gait Assistive Device: FWW Wheelchair (FIM): 5 Distance: 150' Wheelchair Level of Assist: 5 Wheel 50 feet with 2 turns (QC: 4 Stairs (FIM): 2 (exceeded) # of Steps: 4 1 Step (curb) (QC): 4 4 Steps (QC): 4 12 Steps (QC): 4 Stairs Level Of Assist: 4 Pt has met goals set at evaluation; recommend supervision at home upon discharge due to safety concerns. Pt very anxious to return home. Family has been informed by director social welfare of recommendation for supervision and safety concerns. OT Detention Goals Detention Goals Time Frame: Apr 30, 2018 Eating (FIM): 6 Eating (QC): 6 Oral Hygiene (QC): 6 Grooming(FIM): 6 Bathing(FIM): 5 Shower/Bathe Self (QC): 5 Upper Body Dressing(FIM): 6 Upper Body Dressing (QC): 6 Lower Body Dressing(FIM): 5 Lower Body Dressing (QC): 5 On/Off Footwear (QC): 5 Toileting(FIM): 6 Toileting Hygiene (QC): 6 Transfers (B,C,W/C) (FIM): 6 Toilet/Commode Transfer(FIM): 6 Toilet/Commode Transfer (QC): 6 Shower Transfer(FIM): 5 Additional Goals: 1-Demonstrate ADL Tasks, 2-Verbalize Understanding, 3- ImproveStrength/Yolanda 1=Demonstrate adherence to instructed precautions during ADL tasks. 2=Patient will verbalize/demonstrate understanding of assistive devices/ modifications for ADL. 3=Patient will improve strength/tolerance for activity to enable patient to perform ADL's. Speech Detention Goals Detention Goals Patient will demonstrate safety and independence upon her release from this hospital for safe return home. NHAN LOPEZ PT Apr 16, 2018 08:39
[2018-04-16] MEDS: TRIAMCINOLONE 0.1% CR (KENALOG) 15 GM TUBE TOP SCH (08:40)
--- NOTE | 2018-04-16 08:44 | PM & R (SOAP) Progress Note ---
Subjective This was a face to face visit with the patient. Date Seen by Provider: Apr 16, 2018 Time Seen by Provider: 07:50 Subjective/Events-last exam Patient was seen in her room this AM All set for discharge Patient to go home with her son Stool for Cdif results pending but patient without GI complaints Date Identified: Apr 16, 2018 Time Identified: 08:00 Medication Intervention: Discharge meds reviewed Objective Physician Exam Last Set of Vital Signs Vital Signs Date Time Temp Pulse Resp B/P (MAP) Pulse Ox O2 Delivery O2 Flow Rate FiO2 04/16/18 06:03 99.4 93 18 116/72 (87) 92 Nasal Cannula 2.00 Capillary Refill : I&O Intake and Output 04/16/18 00:00 Intake Total 900 ml Balance 900 ml Intake Oral 900 ml # Voids 7 # Bowel Movements 3 General: Alert, Oriented X3, Cooperative, No Acute Distress HEENT: Atraumatic, PERRLA, EOMI, Mucous Memb Moist/[place], Other (02 by N/C in place) Neck: Supple, No JVD Lungs: Other (Decreased brath sounds at bases) Heart: Regular Rate Abdomen: Normal Bowel Sounds, Soft, No Tenderness Extremities: No Edema, Other (tremors) Skin: No Rashes, No Breakdown Neuro: Other (Generalized weakness) Psych/Mental Status: Mental Status NL Results Lab Data Microbiology 04/15/18 C. difficile DNA Amplification, Resulted Pending 04/15/18 C. difficile GD Antigen & Toxins - Final, Resulted Assessment/Plan Assessment and Plan Home today with her son See orders F/U with DR Madeleine johnson f/u care and results of c dif testing (1) COPD exacerbation Status: Acute Co-Morbidities that are continuing to impact the rehab process: (include details ) ANTONIETA RUBIO MD Apr 16, 2018 08:44
[2018-04-16] MEDS: RT-LEVALBUTEROL (XOPENEX) 1.25 MG/3 ML NEB NON-FORMULARY INH SCH (09:17)
--- NOTE | 2018-04-16 09:23 | Therapy Team Discharge Summary ---
Therapy Discharge Summary Discharge Recommendations Date of Discharge 04-16-18 Therapy D/C Recommendations: Home w/ Family Support, Occupational Therapy Home Care Occupational Therapy Pt. has been seen by occupational therapy to increase all ADL independence for safe transfer home. At time of discharge, pt. is able to bathe/dress with SBA, except very minimal assistance to don slipper socks with AE. Pt. still fatigues easily and requires multiple rest breaks. Requires cues at times with walker and oxygen tubing. This may be due to unfamiliar environment. Pt. has made great progress since initial evaluation, but has not fully met all goals of independence. Would benefit from home health OT as well as supervision during showers. Pt. discharging home with assistance from supportive family. Decreased Activ Tolerance, Impaired I ADL's PT Snf Goals Surg Rn Goals PT Snf Goals Time Frame: Apr 23, 2018 Transfers (B,C,W/C) (FIM): 5 (met) Roll Left to Right (QC): 4 Sit to Lying (QC): 4 Lying-Sitting on Side/Bed(QC): 4 Sit to Stand (QC): 4 Chair/Uaq-iq-Tcfir Xfer(QC): 4 Car Transfer (QC): 4 (met) Gait (FIM): 5 (met) Distance: 150' Walk 10 feet (QC): 4 Walk 10ft-Uneven Surface(QC): 4 Walk 50ft with 2 Turns (QC): 4 Walk 150 ft (QC): 4 Gait Level of Assist: 5 Gait Assistive Device: FWW Wheelchair (FIM): 5 Distance: 150' Wheelchair Level of Assist: 5 Wheel 50 feet with 2 turns (QC: 4 Stairs (FIM): 2 (exceeded) # of Steps: 4 1 Step (curb) (QC): 4 4 Steps (QC): 4 12 Steps (QC): 4 Stairs Level Of Assist: 4 OT Snf Goals Snf Goals Time Frame: Apr 30, 2018 Eating (FIM): 6 (met) Eating (QC): 6 (met) Oral Hygiene (QC): 6 (not met) Grooming(FIM): 6 (not met) Bathing(FIM): 5 (met) Shower/Bathe Self (QC): 5 (met) Upper Body Dressing(FIM): 6 (not met) Upper Body Dressing (QC): 6 (not met) Lower Body Dressing(FIM): 5 (not met) Lower Body Dressing (QC): 5 (not met) On/Off Footwear (QC): 5 (not met) Toileting(FIM): 6 (not met) Toileting Hygiene (QC): 6 (not met) Transfers (B,C,W/C) (FIM): 6 (not met) Toilet/Commode Transfer(FIM): 6 (not met) Toilet/Commode Transfer (QC): 6 (not met) Shower Transfer(FIM): 5 (met) Additional Goals: 1-Demonstrate ADL Tasks, 2-Verbalize Understanding, 3- ImproveStrength/Yolanda 1=Demonstrate adherence to instructed precautions during ADL tasks. 2=Patient will verbalize/demonstrate understanding of assistive devices/ modifications for ADL. 3=Patient will improve strength/tolerance for activity to enable patient to perform ADL's. Speech Snf Goals Snf Goals Patient will demonstrate safety and independence upon her release from this hospital for safe return home. FLEX PAIZ OT Apr 16, 2018 09:23
[2018-04-16] MEDS: RT-ADVAIR HFA 115/21 MCG PER PUFF IH SCH (09:27)
[2018-04-16 09:31] VITALS: BP 111/70
[2018-04-16 12:00] VITALS: BP 111/70
--- NOTE | 2018-04-17 09:42 | Physical Therapy Daily Note ---
PT Daily Note-Current Subjective Pt. agrees to Rx. Pain Numeric Pain Scale: 0-No Pain Mental Status Patient Orientation: Normal For Age Attachments: Oxygen (2L) Transfers Therapy Code Descriptions/Definitions Functional Starr Measure: 0=Not Assessed/NA 4=Minimal Assistance 1=Total Assistance 5=Supervision or Setup 2=Maximal Assistance 6=Modified Starr 3=Moderate Assistance 7=Complete Starr Therapy Quality Codes: 6 Independent with activity with or without an assistive device 5 Patient requires set up or clean up by helper. Patient completes activity by themselves 4 Supervision or touching assist (CGA). [place] provide cues , steadying assist 3 The helper provides less than half the effort to complete the activity 2 The helper provides more than half the effort to complete the activity 1 Dependent. The helper does all the effort to complete an activity 7 Patient refused to complete or attempt activity 9 The patient did not perform the activity before the current illness or injury 88 Not attempted due to Medical conditions or safety concerns Transfers (B, C, W/C) (FIM): 6 Scootin Rollin Supine to/from Sit: 6 Sit to/from Stand: 6 Weight Bearing Right Lower Extremity: Right Full Weight Bearing Left Lower Extremity: Left Full Weight Bearing Gait Training Does the Patient Walk?: Yes Gait (FIM): 5 Distance (FIM): 3=150 ft (x2) Gait Level of Assist: 5 Gait Persons Needed: 1 Gait Assistive Device: FWW needs assist for port O2. gait with extended O2 with good and safe habits noted , up in halls with CGA to SBA this date. Exercises Seated Therapy Exercises: Ankle pumps, Sit to stand, Long arc quads, Hip flexion Seated Reps: 15 Assessment Current Status: Good Progress PT Short Term Goals Short Term Goals Time Frame: Apr 09, 2018 Transfers (B,C,W/C) (FIM): 4 (met) Gait (FIM): 2 (met) Gait Distance Comment: 50' Gait Level of Assist: 4 Gait Assistive Device: FWW Wheelchair Distance: 20' PT Custodial Goals Custodial Goals PT Custodial Goals Time Frame: Apr 23, 2018 Transfers (B,C,W/C) (FIM): 5 (met) Sit to Lying (QC): 4 Lying-Sitting on Side/Bed(QC): 4 Sit to Stand (QC): 4 Rollin Roll Left to Right (QC): 4 Chair/Rpq-xb-Brepn Xfer(QC): 4 Car Transfer (QC): 4 (met) Gait (FIM): 5 (met) Distance: 150' Walk 10 feet (QC): 4 Walk 10ft-Uneven Surface(QC): 4 Walk 50ft with 2 Turns (QC): 4 Walk 150 ft (QC): 4 Gait Level of Assist: 5 Gait Assistive Device: FWW Wheelchair (FIM): 5 Distance: 150' Wheelchair Level of Assist: 5 Wheel 50 feet with 2 turns (QC: 4 Stairs (FIM): 2 (exceeded) # of Steps: 4 1 Step (curb) (QC): 4 4 Steps (QC): 4 12 Steps (QC): 4 Stairs Level Of Assist: 4 PT Plan Treatment/Plan Treatment Plan: Continue Plan of Care Treatment Plan: Bed Mobility, Concurrent Therapy, Education, Functional Activity Yolanda, Functional Strength, Group Therapy, Gait, Safety, Therapeutic Exercise, Transfers Treatment Duration: Apr 23, 2018 Frequency: At least 5 of 7 days/Wk (IRF) Estimated Hrs Per Day: 1.5 hours per day Patient and/or Family Agrees t: Yes Safety Risks/Education Patient Education: Gait Training, Transfer Techniques, Correct Positioning, Disease Process, Safety Issues Teaching Recipient: Patient Teaching Methods: Demonstration, Discussion Response to Teaching: Verbalize Understanding, Return Demonstration, Reinforcement Needed Time/GCodes Time In: 1000 Time Out: 1015 Total Billed Treatment Time: 15 Total Billed Treatment 1,GT15m G Codes Necessary: LIDA Rosado PIANO MAKER Apr 17, 2018 09:42
--- NOTE | 2018-04-17 15:05 | Therapy Team Discharge Summary ---
Therapy Discharge Summary Discharge Recommendations Date of Discharge Apr 16, 2018 at 12:00 Therapy D/C Recommendations: Home w/ Family Support, Occupational Therapy Home Care Occupational Therapy Decreased Activ Tolerance, Impaired I ADL's Speech-Language Pathology Patient was admitted to the ARU for therapy due to acute pneumonia. Patient was initially on 4L of O2 when she arrived on the unit. She was able to reduce down to her usual level of 2L upon discharge. Patient seen for memory and problem solving tasks 5x/wk during her rehab admission. Patient achieved all of her ST goals with skilled therapy. Patient was discharged to her home with good family support. PT Half-Way Goals Half-Way Goals PT Half-Way Goals Time Frame: Apr 23, 2018 Transfers (B,C,W/C) (FIM): 5 (met) Roll Left to Right (QC): 4 Sit to Lying (QC): 4 Lying-Sitting on Side/Bed(QC): 4 Sit to Stand (QC): 4 Chair/Pwa-qw-[place]ur[place] Xfer(QC): 4 Car Transfer (QC): 4 (met) Gait (FIM): 5 (met) Distance: 150' Walk 10 feet (QC): 4 Walk 10ft-Uneven Surface(QC): 4 Walk 50ft with 2 Turns (QC): 4 Walk 150 ft (QC): 4 Gait Level of Assist: 5 Gait Assistive Device: FWW Wheelchair (FIM): 5 Distance: 150' Wheelchair Level of Assist: 5 Wheel 50 feet with 2 turns (QC: 4 Stairs (FIM): 2 (exceeded) # of Steps: 4 1 Step (curb) (QC): 4 4 Steps (QC): 4 12 Steps (QC): 4 Stairs Level Of Assist: 4 OT Half-Way Goals Half-Way Goals Time Frame: Apr 30, 2018 Eating (FIM): 6 (met) Eating (QC): 6 (met) Oral Hygiene (QC): 6 (not met) Grooming(FIM): 6 (not met) Bathing(FIM): 5 (met) Shower/Bathe Self (QC): 5 (met) Upper Body Dressing(FIM): 6 (not met) Upper Body Dressing (QC): 6 (not met) Lower Body Dressing(FIM): 5 (not met) Lower Body Dressing (QC): 5 (not met) On/Off Footwear (QC): 5 (not met) Toileting(FIM): 6 (not met) Toileting Hygiene (QC): 6 (not met) Transfers (B,C,W/C) (FIM): 6 (not met) Toilet/Commode Transfer(FIM): 6 (not met) Toilet/Commode Transfer (QC): 6 (not met) Shower Transfer(FIM): 5 (met) Additional Goals: 1-Demonstrate ADL Tasks, 2-Verbalize Understanding, 3- ImproveStrength/Yolanda 1=Demonstrate adherence to instructed precautions during ADL tasks. 2=Patient will verbalize/demonstrate understanding of assistive devices/ modifications for ADL. 3=Patient will improve strength/tolerance for activity to enable patient to perform ADL's. Speech Half-Way Goals Half-Way Goals Patient will demonstrate safety and independence upon her release from this hospital for safe return home. Met ALISON MONTANEZ Apr 17, 2018 15:05
== END 2018-04-16 12:00 | disposition home or self-care (01) | DRG 948 ==
PROVIDERS: ADMIT Physical Medicine & Rehabilitation; ATTEND Physical Medicine & Rehabilitation
DX: R53.1 Weakness (principal); J44.1 Chronic obstructive pulmonary disease with (acute) exacerbation; R41.89 Other symptoms and signs involving cognitive functions and awareness; A04.72 Enterocolitis due to Clostridium difficile, not specified as recurrent; F32.9 Major depressive disorder, single episode, unspecified; E03.9 Hypothyroidism, unspecified; K59.00 Constipation, unspecified; E66.9 Obesity, unspecified; G25.81 Restless legs syndrome; E78.00 Pure hypercholesterolemia, unspecified; K21.9 Gastro-esophageal reflux disease without esophagitis; D64.9 Anemia, unspecified; Z87.891 Personal history of nicotine dependence; Z99.81 Dependence on supplemental oxygen
CPT/HCPCS: 36415; 80053; 85025; 87324; 87449; 87493; 94640; 94760

== ENCOUNTER 2018-06-07 15:00 | Outpatient (RCR) | payer MEDICARE, OTHER ==
[~2018-06-07 15:00] MED LIST changes: +ACID1GRA2 PO
== END 2018-07-18 13:20 | disposition home or self-care (01) ==
PROVIDERS: ATTEND Family Medicine
DX: R53.1 Weakness (principal); J44.9 Chronic obstructive pulmonary disease, unspecified; Z99.81 Dependence on supplemental oxygen; Z87.01 Personal history of pneumonia (recurrent)

== ENCOUNTER 2020-07-09 11:45 | Emergency (ER) | payer MEDICARE, OTHER ==
[~2020-07-09] VITALS: Ht 160 cm; Wt 81.0 kg
[~2020-07-09 11:45] MED LIST changes: -ACLI400A2 IH; +ACLI400A3 IH; +ASPI-1238 PO; -ASPI-983 PO; -MONT10TA24 PO; +MONT10TA32 PO; -RANI-515 PO; +RANI-609 PO; +RANI-613 PO; -RANI150T46 PO; -ROPI0.5T2 PO; +ROPI0.5T4 PO; +SERT-413 PO; -SERT50TA9 PO
[2020-07-09] MEDS ORDERED: NITROGLYCERIN 0.4 MG SL TABS BTL 25'S SL PRN (12:45)
[2020-07-09] MEDS ORDERED: ASPIRIN 81 MG CHEW (CHILDREN'S ASA) PO ONE (12:45)
[2020-07-09 12:51] LABS: BASOPHILS # (AUTO) 0.1 10^3/uL (0.0-0.1); BASOPHILS % (AUTO) 1 % (0-10); EOSINOPHILS # (AUTO) 0.1 10^3/uL (0.0-0.3); EOSINOPHILS % (AUTO) 1 % (0-10); HEMATOCRIT 42 % (35-52); HEMOGLOBIN 13.8 g/dL (11.5-16.0); LYMPHOCYTES # (AUTO) 1.6 10^3/uL (1.0-4.0); LYMPHOCYTES % (AUTO) 15 % (12-44); MEAN CORPUSCULAR HEMOGLOBIN 31 pg (25-34); MEAN CORPUSCULAR HGB CONC 33 g/dL (32-36); MEAN CORPUSCULAR VOLUME 95 fL (80-99); MEAN PLATELET VOLUME 10.2 fL (9.0-12.2); MONOCYTES % (AUTO) 10 % (0-12); NEUTROPHILS # (AUTO) 7.8 10^3/uL (1.8-7.8); NEUTROPHILS % (AUTO) 73 % (42-75); PLATELET COUNT 244 10^3/uL (130-400); WHITE BLOOD COUNT 10.7 10^3/uL (4.3-11.0)
[2020-07-09 12:54] LABS: ALBUMIN 4.3 GM/DL (3.2-4.5)
[2020-07-09 12:55] LABS: CHLORIDE 102 MMOL/L (98-107); POTASSIUM 3.9 MMOL/L (3.6-5.0); SODIUM 139 MMOL/L (135-145)
[2020-07-09 12:56] LABS: INR 1.2 (0.8-1.4); PROTHROMBIN TIME PATIENT 15.4 SEC (12.2-14.7)
[2020-07-09 12:57] LABS: GLUCOSE 115 MG/DL (70-105); TOTAL PROTEIN 7.8 GM/DL (6.4-8.2)
[2020-07-09 12:58] LABS: CARBON DIOXIDE 28 MMOL/L (21-32)
[2020-07-09 12:59] LABS: BILIRUBIN,TOTAL 1.4 MG/DL (0.1-1.0)
--- NOTE | 2020-07-09 12:59 | ED Chest Pain ---
General Chief Complaint: Chest Pain Stated Complaint: CHEST DISCOMFORT / SOA Nursing Triage Note: WAS SENT OVER FROM DR GOLDMAN OFFICE WITH CHEST PAIN ET SOA X2 DAYS. PT ARRIVED WITH HOME O2 AT 2L NC. Nursing Sepsis Screen: No Definite Risk Source: patient Exam Limitations: no limitations History of Present Illness Date Seen by Provider: Jul 09, 2020 Time Seen by Provider: 12:31 Initial Comments The patient woke up yesterday morning with substernal chest pain on deep inspiration. She does have a history of COPD relying on oxygen at 2 L. She has not increased her oxygen use and she says she does not always wear it fastidiously. She has not had a breathing treatment since yesterday. She does not have a history of heart disease, hypertension, hyperlipidemia, diabetes and she is stop smoking over 5 years ago. She is known to Dr. Salvador for primary care. No early-onset familial history of coronary disease. She came in at her daughter's insistence that she be checked out. She is had no nausea sweats chills fever or cough. She did get her first dose of Covid vaccine yesterday after her symptoms started. She did not get influenza vaccine this season nor has she had Pneumovax. Allergies and Home Medications Allergies Coded Allergies: No Known Drug Allergies (Unverified , 03/15/18) Home Medications Aspirin 81 Mg Tablet.dr, 81 MG PO DAILY, (Reported) Atorvastatin Calcium 40 Mg Tablet, 40 MG PO HS, (Reported) Cetirizine HCl 10 Mg Tablet, 10 MG PO DAILY, (Reported) Cholecalciferol (Vitamin D3) 1,000 Unit Capsule, 1,000 UNIT PO DAILY, (Reported) L. Acidophilus/Bulgaricus 1 Each Gran.pack, 1 GM PO ACHS Prescribed by: ANTONIETA RUBIO on 04/15/181927 Levothyroxine Sodium 112 Mcg Tablet, 112 MCG PO DAILY, (Reported) Mometasone/Formoterol 13 Gm Hfa.aer.ad, 2 PUFF IH BID, (Reported) Montelukast Sodium 10 Mg Tablet, 10 MG PO HS, (Reported) Ranitidine HCl 150 Mg Tablet, 150 MG PO DAILY, (Reported) Ropinirole HCl 0.5 Mg Tablet, 0.5 MG PO HS, (Reported) Sertraline HCl 50 Mg Tablet, 50 MG PO HS, (Reported) Patient Home Medication List Home Medication List Reviewed: Yes Review of Systems Review of Systems Constitutional: No chills, No diaphoresis EENTM: No Blurred Vision, No Double Vision Respiratory: Denies Cough, Denies Shortness of Air Cardiovascular: Chest Pain; Denies Lightheadedness Gastrointestinal: Denies Constipated, Denies Diarrhea, Denies Nausea Genitourinary: Denies Burning, Denies Discharge Musculoskeletal: No back pain, No joint pain All Other Systems Reviewed Negative Unless Noted: Yes Past Zxmwrmd-Dsuvhs-Hnymzx Hx Patient Social History Alcohol Use: Denies Use Smoking Status: Former Smoker Type Used: Cigarettes Former Smoker, Quit: Oct 20, 2015 Recent Infectious Disease Expo: No Recent Hopitalizations: No Immunizations Up To Date Tetanus Booster (TDap): Unknown Date of Pneumonia Vaccine: Feb 14, 2016 Date of Influenza Vaccine: Feb 14, 2016 Seasonal Allergies Seasonal Allergies: No Past Medical History Surgeries: Yes Adenoidectomy, Tonsillectomy Respiratory: Yes (02 1L AT NIGHT AND NEEDED) COPD Cardiac: Yes High Cholesterol Neurological: Yes (essential tremor LEFT HAND) Stroke Reproductive Disorders: No Female Reproductive Disorders: Denies Sexually Transmitted Disease: No HIV/AIDS: No Genitourinary: No Gastrointestinal: Yes Gastroesophageal Reflux, Polyps Musculoskeletal: No (weakness) Endocrine: Yes (THYROID NODULES) HEENT: Yes (blurred vison. wears glasses) Loss of Vision: Bilateral Hearing Impairment: Denies Cancer: No Psychosocial: Yes Depression Integumentary: No Blood Disorders: No Adverse Reaction/Blood Tranf: No (N/A) Family Medical History Congenital heart disease 19 FATHER Hypertension 19 FATHER No Pertinent Family Hx, CVA, Hypertension Physical Exam Vital Signs Vital Signs - First Documented Capillary Refill : Less Than 3 Seconds Height, Weight, BMI Height: 5'3.00" Weight: 175lbs. 0.7oz. [id number]; 31.00 BMI Method:Stated General Appearance: No Apparent Distress, WD/WN HEENT: PERRL/EOMI, Pharynx Normal, Moist Mucous Membranes Neck: Full Range of Motion, Normal Inspection Respiratory: Chest Non Tender, Lungs Clear, Normal Breath Sounds, No Accessory Muscle Use, No Respiratory Distress, Other (Chest discomfort reproduced on deep inspiration.) Cardiovascular: Regular Rate, Rhythm, Normal Peripheral Pulses Gastrointestinal: Normal Bowel Sounds, Non Tender, Soft Extremity: Normal Capillary Refill, Normal Inspection, No Pedal Edema Neurologic/Psychiatric: Alert, Oriented x3 Skin: Normal Color, Warm/Dry Procedures/Interventions Date of ETT Placement: Mar 16, 2018 Time of ETT Placement: 1051 Progress/Results/Core Measures Results/Orders Lab Results Laboratory Tests Test 07/09/20 12:10 07/09/20 14:55 Range/Units White Blood Count 10.7 4.3-11.0 10^3/uL Red Blood Count 4.39 3.80-5.11 10^6/uL Hemoglobin 13.8 11.5-16.0 g/dL Hematocrit 42 35-52 % Mean Corpuscular Volume 95 80-99 fL Mean Corpuscular Hemoglobin 31 25-34 pg Mean Corpuscular Hemoglobin Concent 33 32-36 g/dL Red Cell Distribution Width 12.2 10.0-14.5 % Platelet Count 244 130-400 10^3/uL Mean Platelet Volume 10.2 9.0-12.2 fL Immature Granulocyte % (Auto) 1 % Neutrophils (%) (Auto) 73 42-75 % Lymphocytes (%) (Auto) 15 12-44 % Monocytes (%) (Auto) 10 0-12 % Eosinophils (%) (Auto) 1 0-10 % Basophils (%) (Auto) 1 0-10 % Neutrophils # (Auto) 7.8 1.8-7.8 10^3/uL Lymphocytes # (Auto) 1.6 1.0-4.0 10^3/uL Monocytes # (Auto) 1.0 0.0-1.0 10^3/uL Eosinophils # (Auto) 0.1 0.0-0.3 10^3/uL Basophils # (Auto) 0.1 0.0-0.1 10^3/uL Immature Granulocyte # (Auto) 0.1 0.0-0.1 10^3/uL Prothrombin Time 15.4 H 12.2-14.7 SEC INR Comment 1.2 0.8-1.4 Activated Partial Thromboplast Time 34 24-35 SEC D-Dimer <= 0.27 0.00-0.49 UG/ML Sodium Level 139 135-145 MMOL/L Potassium Level 3.9 3.6-5.0 MMOL/L Chloride Level 102 98-107 MMOL/L Carbon Dioxide Level 28 21-32 MMOL/L Anion Gap 9 5-14 MMOL/L Blood Urea Nitrogen 9 7-18 MG/DL Creatinine 0.82 0.60-1.30 MG/DL Estimat Glomerular Filtration Rate > 60 BUN/Creatinine Ratio 11 Glucose Level 115 H 70-105 MG/DL Calcium Level 9.0 8.5-10.1 MG/DL Corrected Calcium 8.8 8.5-10.1 MG/DL Magnesium Level 2.0 1.6-2.4 MG/DL Total Bilirubin 1.4 H 0.1-1.0 MG/DL Aspartate Amino Transf (AST/SGOT) 21 5-34 U/L Alanine Aminotransferase (ALT/SGPT) 7 0-55 U/L Alkaline Phosphatase 89 40-136 U/L Myoglobin 35.0 10.0-92.0 NG/ML Troponin I < 0.028 < 0.028 <0.028 NG/ML B-Type Natriuretic Peptide 39.1 <100.0 PG/ML Total Protein 7.8 6.4-8.2 GM/DL Albumin 4.3 3.2-4.5 GM/DL Lipase 17 8-78 U/L Coronavirus 2019 (REGLA) Negative Negative My Orders Orders - TONEY RHOADES Continuous Ekg Monitoring (07/09/20 11:52) Ekg Tracing (07/09/20 11:52) Ekg Tracing (07/09/20 12:27) Covid 19 Inhouse Test (07/09/20 12:42) Cbc With Automated Diff (07/09/20 12:42) Magnesium (07/09/20 12:42) Chest 1 View, Ap/Pa Only (07/09/20 12:42) Comprehensive Metabolic Panel (07/09/20 12:42) Myoglobin Serum (07/09/20 12:42) Protime With Inr (07/09/20 12:42) Partial Thromboplastin Time (07/09/20 12:42) O2 (07/09/20 12:42) Monitor-Rhythm Ecg Trace Only (07/09/20 12:42) Ed Iv/Invasive Line Start (07/09/20 12:42) Lipase (07/09/20 12:42) BNP (07/09/20 12:42) Troponin I (07/09/20 12:42) Nitroglycerin 0.4 Mg Btl 25's (Nitrostat (07/09/20 12:45) Aspirin Chewable Tablet (Baby Aspirin Ch (07/09/20 12:45) Fibrin Degradation Products (07/09/20 13:44) Troponin I (07/09/20 13:45) Orthostatic Vital Signs (Adult (07/09/20 14:55) Lactated Ringers (Lr 1000 Ml Iv Solution (07/09/20 15:03) Ekg Tracing (07/09/20 15:03) Ns Iv 1000 Ml (Sodium Chloride 0.9%) (07/09/20 15:00) Ed Iv/Invasive Line Start (07/09/20 15:08) Ns Iv 1000 Ml (Sodium Chloride 0.9%) (07/09/20 15:15) Medications Given in ED Current Medications Medications Dose Ordered Sig/Devyn Route Start Time Stop Time Status Last Admin Dose Admin Aspirin 324 mg ONCE ONCE PO 07/09/20 12:45 07/09/20 12:46 DC 07/09/20 13:01 324 MG Vital Signs/I&O 07/09/20 07/09/20 07/09/20 07/09/20 12:00 12:00 14:53 16:29 Temp 37.3 Pulse 94 78 88 94 101 Resp 16 16 B/P (MAP) 130/71 (90) 118/108 (111) 125/58 122/95 (104) 90/72 (78) Pulse Ox 97 98 O2 Delivery Nasal Cannula Nasal Cannula Nasal Cannula O2 Flow Rate 2.00 2.00 2.00 Blood Pressure Mean: 90 Progress Progress Note #1: Time: 12:55 Progress Note Chest pain could be due to coronary disease but also could be due to a bronchospasm. If her initial Covid is negative then I would suggest we do a DuoNeb and reassess. Even if she has a negative troponin her heart score would be 4 points and she would possibly benefit from a rule out if she does not improve with DuoNeb which might indicate a bronchospasm more likely. If her bronchospasm takes her chest discomfort away with DuoNeb then we may be able to just do a rule out from the ER. Progress Note #2: Time: 15:07 Progress Note Patient declined and DuoNeb at this time stating she will take it once when she gets home. She still having no discomfort in her chest. Suspect may be pleurisy. D-dimer rules out the chance of a blood clot. Delta troponin has been drawn. Nursing noted when she laid her down that the blood pressure dropped 70s. Patient states her systolic usually runs around 110. We did a set of orthostatic vital signs which were significantly positive so we will give her a liter of fluids and reexamine her. She is still in no distress and has had no material deterioration during her ER stay at this point. We did offer her a stay in the hospital which she declined. Delta EKG ordered. Progress Note #3: Time: 16:23 Progress Note Patient is able to get up and walk around without issue. She is still not having any chest pain. No significant shortness of breath. She is still on her baseline of oxygen. Has had no material deterioration during her ER stay. We did offer her an observation stay which she declined which is acceptable practi ce at this time. We can have her follow-up in the next 1 to 2 weeks with primary care. We discussed this with her daughter as well and will allow her to follow-up outpatient. Initial ECG Impression Date: Jul 09, 2020 Initial ECG Impression Time: 12:18 Initial ECG Rate: 96 Initial ECG Rhythm: Normal Sinus Initial ECG Intervals: Normal Initial ECG Impression: Nonspecific Changes Initial ECG Comparisson: Changed Comment Minimal 1/2-[address] elevation in the inferior leads II, III and aVF with some artifact. Repeat EKG shows similar appearance. EKG #1: EKG Time: 12:29 Rate: 95 Rhythm: Normal Sinus Intervals: Normal ECG Comparisson: Unchanged ECG Impression: Normal, Nonspecific Changes Comment Minimal 1/2-[address] elevation in the inferior leads II, III and aVF with some artifact. Repeat EKG shows similar appearance. EKG #2: EKG Time: 15:11 Rate: 78 Rhythm: Normal Sinus Intervals: Normal ECG Comparisson: Changed ECG Impression: Normal Comment Normal sinus rhythm without clinically relevant ST elevation or depression. Diagnostic Imaging Diagonstic Imaging: Xray Plain Films/CT/US/NM/MRI: chest Comments [facility] [place], [place] NAME: JONI STEPHEN [facility] REC#: [id number] PT STATUS: REG ER : 1950 PHYSICIAN: TONEY RHOADES MD ADMIT DATE: 07/09/20/ER Draft Date of Exam:07/09/20 CHEST 1 VIEW, AP/PA ONLY EXAM: CHEST 1 VIEW, AP/PA ONLY INDICATION: Chest pain. FINDINGS: Normal heart size and central pulmonary vascularity. No focal pulmonary opacity. No pleural effusion or pneumothorax. No acute osseous findings. IMPRESSION: No acute cardiopulmonary findings. Dictated on workstation # [id number] Dict: 07/09/20 1333 Trans: 07/09/20 1336 [id number] Interpreted by: LINNETTE DREW MD Electronically signed by: Reviewed: Reviewed by Me Consults : Consulting Physician: Mariajose ARGUELLES MD Departure Impression Primary Impression: Pleuritic chest pain Additional Impressions: Bronchospasm, acute Orthostatic hypotension Disposition: 01 HOME, SELF-CARE Condition: Stable Departure-Patient Inst. Decision time for Depature: 16:15 Referrals: AMEYA SALVADOR DO (PCP) Primary Care Physician MAGGIE WARE MD [facility] Patient Instructions: Chest Pain (DC), Orthostatic Hypotension Add. Discharge Instructions: Drink plenty of fluids. Call Sunday and follow-up with fourdrinier operator within the next 1 to 2 weeks. Return to the ER promptly if you are having worsening or differing chest pain, shortness of air or other worrisome symptoms. Take a breathing treatment when you get home. Continue taking your other medications as prescribed. All discharge instructions reviewed with patient and/or family. Voiced understanding. Copy Copies To 1: MAGGIE WARE MD [facility] TONEY RHOADES Jul 09, 2020 12:59
[2020-07-09 13:00] LABS: ALKALINE PHOSPHATASE 89 U/L (40-136); CREATININE SERUM 0.82 MG/DL (0.60-1.30); GFR ESTIMATED > 60
[2020-07-09 13:02] LABS: BUN/CREATININE RATIO 11
[2020-07-09 13:04] LABS: ALANINE AMINOTRANSFERASE 7 U/L (0-55)
[2020-07-09 13:05] LABS: LIPASE 17 U/L (8-78)
--- NOTE | 2020-07-09 13:36 | Diagnostic Imaging Report ---
EXAM: CHEST 1 VIEW, AP/PA ONLY INDICATION: Chest pain. FINDINGS: Normal heart size and central pulmonary vascularity. No focal pulmonary opacity. No pleural effusion or pneumothorax. No acute osseous findings. IMPRESSION: No acute cardiopulmonary findings. Dictated by: Dictated on workstation # [id number]
[2020-07-09 14:53] VITALS: BP_SYST 118; BP_SYST 122; BP_SYST 90; BP_DIAS 108; BP_DIAS 72; BP_DIAS 95
[2020-07-09] MEDS ORDERED: NS IV 1000 ML 1,000 ML ONE (15:00)
[2020-07-09] MEDS ORDERED: LACTATED RINGERS 1,000 ML IV STA (15:03)
[2020-07-09] MEDS ORDERED: NS IV 1000 ML 1,000 ML IV SCH (15:15)
[2020-07-09 16:29] VITALS: BP 125/58
== END 2020-07-09 16:29 | disposition home or self-care (01) ==
LOC: EDUNIT# 11:45 → ER 11:47
DX: R07.81 Pleurodynia (principal); J98.01 Acute bronchospasm; I95.1 Orthostatic hypotension; K21.9 Gastro-esophageal reflux disease without esophagitis; F32.9 Major depressive disorder, single episode, unspecified; E78.00 Pure hypercholesterolemia, unspecified; Z20.822 Contact with and (suspected) exposure to COVID-19; Z87.891 Personal history of nicotine dependence; Z86.73 Personal history of transient ischemic attack (TIA), and cerebral infarction without residual deficits; Z82.49 Family history of ischemic heart disease and other diseases of the circulatory system; Z79.82 Long term (current) use of aspirin
CPT/HCPCS: 71045; 80053; 83690; 83735; 83874; 83880; 84484; 85025; 85379; 85610; 85730; 93041; 99284; U0002; 36415; 87635

== ENCOUNTER 2020-09-07 16:28 | Emergency (ER) | payer MEDICARE, OTHER ==
[~2020-09-07] VITALS: Ht 160 cm; Wt 81.6 kg
--- NOTE | 2020-09-07 16:41 | ED Neurological Problem ---
General Chief Complaint: Trauma-Non Activation Stated Complaint: FALL Source: patient Exam Limitations: no limitations History of Present Illness Date Seen by Provider: September 07, 2020 Time Seen by Provider: 16:23 Initial Comments Patient presents the ER by EMS from home with chief complaint that she was found down by family where she had collapsed onto the bathroom floor. She states she just slipped and did not hit her head. She did not lose consciousness. She is not on blood thinners. She has a history of stroke many years ago managed at [facility]. She had no weakness at that time however today she has left-sided weakness and left facial droop. She is not having slurred speech and is mostly at baseline for mentation according to her family. Blood sugar 122 on arrival. Patient's not claiming any significant pain outside of abrasion on her left forearm. No diarrhea constipation fever chills cough shortness of air or chest pain. Allergies and Home Medications Allergies Coded Allergies: No Known Drug Allergies (Unverified , 03/15/18) Home Medications Aspirin 81 Mg Tablet.dr, 81 MG PO DAILY, (Reported) Atorvastatin Calcium 40 Mg Tablet, 40 MG PO HS, (Reported) Cetirizine HCl 10 Mg Tablet, 10 MG PO DAILY, (Reported) Cholecalciferol (Vitamin D3) 1,000 Unit Capsule, 1,000 UNIT PO DAILY, (Reported) L. Acidophilus/Bulgaricus 1 Each Gran.pack, 1 GM PO ACHS Prescribed by: ANTONIETA RUBIO on 04/15/181927 Levothyroxine Sodium 112 Mcg Tablet, 112 MCG PO DAILY, (Reported) Mometasone/Formoterol 13 Gm Hfa.aer.ad, 2 PUFF IH BID, (Reported) Montelukast Sodium 10 Mg Tablet, 10 MG PO HS, (Reported) Ranitidine HCl 150 Mg Tablet, 150 MG PO DAILY, (Reported) Ropinirole HCl 0.5 Mg Tablet, 0.5 MG PO HS, (Reported) Sertraline HCl 50 Mg Tablet, 50 MG PO HS, (Reported) Patient Home Medication List Home Medication List Reviewed: Yes Review of Systems Review of Systems Constitutional: No chills, No diaphoresis Eyes: Denies Blindness, Denies Blurred Vision Ears, Nose, Mouth, Throat: denies ear pain, denies ear discharge Respiratory: No cough, No phlegm, No short of breath Cardiovascular: No chest pain, No palpitations Gastrointestinal: No abdominal pain, No nausea, No vomiting Genitourinary: No discharge, No dysuria Musculoskeletal: No back pain, No joint pain All Other Systems Reviewed Negative Unless Noted: Yes Past Eypwmnc-Xfcapp-Msewon Hx Patient Social History Alcohol Use: Denies Use Smoking Status: Former Smoker Type Used: Cigarettes Former Smoker, Quit: Oct 20, 2015 Recent Hopitalizations: No Immunizations Up To Date Tetanus Booster (TDap): Unknown Date of Pneumonia Vaccine: Feb 14, 2016 Date of Influenza Vaccine: Feb 14, 2016 Seasonal Allergies Seasonal Allergies: No Past Medical History Surgeries: Yes Adenoidectomy, Tonsillectomy Respiratory: Yes (02 1L AT NIGHT AND NEEDED) COPD Cardiac: Yes High Cholesterol Neurological: Yes (essential tremor LEFT HAND) Stroke Reproductive Disorders: No Female Reproductive Disorders: Denies Sexually Transmitted Disease: No HIV/AIDS: No Genitourinary: No Gastrointestinal: Yes Gastroesophageal Reflux, Polyps Musculoskeletal: No (weakness) Endocrine: Yes (THYROID NODULES) HEENT: Yes (blurred vison. wears glasses) Loss of Vision: Bilateral Hearing Impairment: Denies Cancer: No Psychosocial: Yes Depression Integumentary: No Blood Disorders: No Adverse Reaction/Blood Tranf: No (N/A) Family Medical History Congenital heart disease 19 FATHER Hypertension 19 FATHER No Pertinent Family Hx, CVA, Hypertension Physical Exam Vital Signs Vital Signs - First Documented 09/07/20 16:29 Temp 36.8 Pulse 77 Resp 20 B/P (MAP) 125/75 (92) Pulse Ox 99 O2 Delivery Nasal Cannula O2 Flow Rate 2.00 Capillary Refill : Height, Weight, BMI Height: 5'3.00" Weight: 175lbs. 0.7oz. 79.985247kg; 31.00 BMI Method:Stated General Appearance: WD/WN, mild distress HEENT: PERRL/EOMI, pharynx normal Neck: full range of motion, normal inspection Respiratory: no respiratory distress, no accessory muscle use Cardiovascular: normal peripheral pulses, regular rate, rhythm Peripheral Pulses: 2+ Radial Pulses (R), 2+ Radial Pulses (L) Gastrointestinal: normal bowel sounds, non tender Stroke NIH Stroke Scale Assessment Select: Initial Level of Consciousness: 0=Alert (0), Level of Consciousness- Questions: 0=Answers both month/age (0), LOC Commands: 0=Performs both tasks (0), Gaze: Normal (0), Visual Lima: 0=No visual loss (0), Facial Movement (Facial Paresis): 1=Minor paralysis (1), Motor Function-Arms Right: 1=Drift (1), Motor Function-Arms Left: 0=No drift (0), Motor Function-Legs Right: 0=No drift (0), Motor Function-Legs Left: 0=No drift (0), Limb Ataxia: 0=Absent (0), Sensory: 0=Normal:no loss (0), Best Language: 0=No aphasia (0), Dysarthria: 0=Normal (0), Extinction & Inattention: 0=No abnormality (0), Tot al: 2 Stroke Thrombolytic Exclusion TPA Contraindication: Yes IV - TPa Received IV - TPa Procedure Performed?: No (Bleed; out of the window and its a hemorrhagic stroke) Procedures/Interventions Date of ETT Placement: Mar 16, 2018 Time of ETT Placement: 1051 Progress/Results/Core Measures Results/Orders Lab Results Laboratory Tests Test 09/07/20 16:35 09/07/20 16:40 09/07/20 17:10 Range/Units Glucometer 122 H 70-110 MG/DL White Blood Count 14.5 H 4.3-11.0 10^3/uL Red Blood Count 4.61 3.80-5.11 10^6/uL Hemoglobin 14.3 11.5-16.0 g/dL Hematocrit 43 35-52 % Mean Corpuscular Volume 94 80-99 fL Mean Corpuscular Hemoglobin 31 25-34 pg Mean Corpuscular Hemoglobin Concent 33 32-36 g/dL Red Cell Distribution Width 12.3 10.0-14.5 % Platelet Count 249 130-400 10^3/uL Mean Platelet Volume 9.6 9.0-12.2 fL Immature Granulocyte % (Auto) 0 % Neutrophils (%) (Auto) 86 H 42-75 % Lymphocytes (%) (Auto) 7 L 12-44 % Monocytes (%) (Auto) 6 0-12 % Eosinophils (%) (Auto) 0 0-10 % Basophils (%) (Auto) 0 0-10 % Neutrophils # (Auto) 12.5 H 1.8-7.8 10^3/uL Lymphocytes # (Auto) 1.0 1.0-4.0 10^3/uL Monocytes # (Auto) 0.8 0.0-1.0 10^3/uL Eosinophils # (Auto) 0.1 0.0-0.3 10^3/uL Basophils # (Auto) 0.1 0.0-0.1 10^3/uL Immature Granulocyte # (Auto) 0.1 0.0-0.1 10^3/uL Neutrophils % (Manual) 79 % Lymphocytes % (Manual) 12 % Monocytes % (Manual) 9 % Blood Morphology Comment NORMAL Prothrombin Time 14.2 12.2-14.7 SEC INR Comment 1.1 0.8-1.4 Activated Partial Thromboplast Time 28 24-35 SEC D-Dimer 0.22 0.00-0.49 UG/ML Sodium Level 139 135-145 MMOL/L Potassium Level 4.0 3.6-5.0 MMOL/L Chloride Level 99 98-107 MMOL/L Carbon Dioxide Level 35 H 21-32 MMOL/L Anion Gap 5 5-14 MMOL/L Blood Urea Nitrogen 10 7-18 MG/DL Creatinine 0.83 0.60-1.30 MG/DL Estimat Glomerular Filtration Rate > 60 BUN/Creatinine Ratio 12 Glucose Level 119 H 70-105 MG/DL Calcium Level 8.9 8.5-10.1 MG/DL Corrected Calcium 8.6 8.5-10.1 MG/DL Total Bilirubin 0.8 0.1-1.0 MG/DL Aspartate Amino Transf (AST/SGOT) 21 5-34 U/L Alanine Aminotransferase (ALT/SGPT) 17 0-55 U/L Alkaline Phosphatase 99 40-136 U/L Total Creatine Kinase 87 29-168 U/L Troponin I < 0.028 <0.028 NG/ML Total Protein 7.8 6.4-8.2 GM/DL Albumin 4.4 3.2-4.5 GM/DL My Orders Orders - TONEY RHOADES Cbc With Automated Diff (09/07/20 16:35) Protime With Inr (09/07/20 16:35) Partial Thromboplastin Time (09/07/20 16:35) Comprehensive Metabolic Panel (09/07/20 16:35) Fibrin Degradation Products (09/07/20 16:35) Troponin I (09/07/20 16:35) Ua Culture If Indicated (09/07/20 16:35) Chest 1 View, Ap/Pa Only (09/07/20 16:35) Ekg Tracing (09/07/20 16:35) Nothing By Mouth (09/07/20 Dinner) Accucheck Stat ONCE (09/07/20 16:35) Ed Iv/Invasive Line Start (09/07/20 16:35) Ed Iv/Invasive Line Start (09/07/20 16:35) Vital Signs Stroke Patient Q15M (09/07/20 16:35) Ct Head Wo-R/O Stroke (09/07/20 16:35) O2 (09/07/20 16:35) Intake & Output 06,14,22 (09/07/20 16:35) Monitor-Rhythm Ecg Trace Only (09/07/20 16:35) Dysphagia Screening Tool (09/07/20 16:35) Post Thrombolytic Adminstratio (09/07/20 16:35) Lipid Panel (09/08/20 06:00) Ct Angio Head/Neck (09/07/20 16:35) Creatine Kinase (09/07/20 16:35) Ed Iv/Invasive Line Start (09/07/20 16:35) Ns Iv 1000 Ml (Sodium Chloride 0.9%) (09/07/20 16:45) Manual Differential (09/07/20 16:40) Vital Signs/I&O 09/07/20 16:29 Temp 36.8 Pulse 77 Resp 20 B/P (MAP) 125/75 (92) Pulse Ox 99 O2 Delivery Nasal Cannula O2 Flow Rate 2.00 Progress Progress Note : Time: 17:18 Progress Note Most unfortunately we discovered a bleed in the right side of her head likely spontaneous given its location and probably precipitated her symptoms. Last known well time being 9:00 this morning we will call neurosurgery at [facility] where she has gone to in [place] in the past for breathing issues and look for expert consultation. Initial ECG Impression Date: September 07, 2020 Initial ECG Impression Time: 17:27 Initial ECG Rate: 82 Initial ECG Rhythm: Normal Sinus Initial ECG Intervals: Normal Initial ECG Impression: Normal Comment Normal sinus rhythm without clinically relevant ST changes. Diagnostic Imaging Diagonstic Imaging: Xray Plain Films/CT/US/NM/MRI: chest Reviewed: Reviewed by Me Diagonstic Imaging: CT Plain Films/CT/US/NM/MRI: head Comments [facility], [place] NAME: JONI STEPHEN [facility] REC#: [id number] PT STATUS: REG ER : 1950 PHYSICIAN: TONEY RHOADES MD ADMIT DATE: 09/07/20/ER Draft Date of Exam:09/07/20 CT HEAD WO-R/O STROKE PROCEDURE: CT head wo r/o stroke. TECHNIQUE: Multiple contiguous axial images were obtained through the brain without the use of intravenous contrast. Auto Exposure Controls were utilized during the CT exam to meet ALARA standards for radiation dose reduction. INDICATION: Neurologic deficit, stroke. COMPARISON: 07/31/2015 There is extensive low-density and volume loss in the right frontal lobe, likely representing encephalomalacia from previous insult. In addition, there is large hematoma which extends from the right globus pallidus into the right sylvian fissure and right lateral ventricle as well as area of right frontal encephalomalacia. This results in mild leftward bowing of the anterior interhemispheric falx without evidence of herniation. No other acute infarct or hemorrhage is identified. IMPRESSION: Possible hemorrhagic stroke extending from the right globus pallidus with extension into right frontal encephalomalacia and right ventricle. Dictated on workstation # [id number] Dict: 09/07/20 1702 Trans: 09/07/201711 [facility] [id number] Interpreted by: VALENTINA POPE MD Electronically signed by: Reviewed: Reviewed by Me Departure Impression Primary Impression: Hemorrhagic stroke Disposition: XF SHT-TRM HOSP Condition: Stable Transfer Transfer Reason: Exceeds level of care Time Spoke to Accepting Phy: 17:35 Transfer Progress Notes Discussed the case with Dr. Macedo, neurology and he agrees to consult on the patient if intensive care will take her. Discussed the case with Dr. Dumas and he agrees to accept the patient to the ICU at [place], [place]. Transfer Facility: [place], [place] Method of Transfer: Air Departure-Patient Inst. Referrals: AMEYA PEREZ DO (PCP/Family) Primary Care Physician TONEY RHOADES September 07, 2020 16:41
[2020-09-07] MEDS ORDERED: NS IV 1000 ML 1,000 ML IV SCH (16:45)
[2020-09-07 16:47] LABS: BASOPHILS # (AUTO) 0.1 10^3/uL (0.0-0.1); BASOPHILS % (AUTO) 0 % (0-10); EOSINOPHILS # (AUTO) 0.1 10^3/uL (0.0-0.3); EOSINOPHILS % (AUTO) 0 % (0-10); HEMATOCRIT 43 % (35-52); HEMOGLOBIN 14.3 g/dL (11.5-16.0); LYMPHOCYTES % (AUTO) 7 % (12-44); MEAN CORPUSCULAR HEMOGLOBIN 31 pg (25-34); MEAN CORPUSCULAR HGB CONC 33 g/dL (32-36); MEAN CORPUSCULAR VOLUME 94 fL (80-99); MEAN PLATELET VOLUME 9.6 fL (9.0-12.2); MONOCYTES # (AUTO) 0.8 10^3/uL (0.0-1.0); MONOCYTES % (AUTO) 6 % (0-12); NEUTROPHILS # (AUTO) 12.5 10^3/uL (1.8-7.8); NEUTROPHILS % (AUTO) 86 % (42-75); PLATELET COUNT 249 10^3/uL (130-400); WHITE BLOOD COUNT 14.5 10^3/uL (4.3-11.0)
[2020-09-07 17:05] LABS: FIBRIN DEGRADATION PRODUCTS 0.22 UG/ML (0.00-0.49); INR 1.1 (0.8-1.4); PROTHROMBIN TIME PATIENT 14.2 SEC (12.2-14.7)
[2020-09-07 17:07] LABS: ALANINE AMINOTRANSFERASE 17 U/L (0-55); ALBUMIN 4.4 GM/DL (3.2-4.5); ALKALINE PHOSPHATASE 99 U/L (40-136); BILIRUBIN,TOTAL 0.8 MG/DL (0.1-1.0); BUN/CREATININE RATIO 12; CALCIUM 8.9 MG/DL (8.5-10.1); CARBON DIOXIDE 35 MMOL/L (21-32); CHLORIDE 99 MMOL/L (98-107); CREATINE KINASE 87 U/L (29-168); CREATININE SERUM 0.83 MG/DL (0.60-1.30); GFR ESTIMATED > 60; GLUCOSE 119 MG/DL (70-105); SODIUM 139 MMOL/L (135-145); TOTAL PROTEIN 7.8 GM/DL (6.4-8.2)
[2020-09-07 17:08] LABS: LYMPHOCYTES % (MANUAL) 12 %; MONOCYTES % (MANUAL) 9 %; NEUTROPHILS % (MANUAL) 79 %; RBC MORPH NORMAL
--- NOTE | 2020-09-07 17:12 | Diagnostic Imaging Report ---
PROCEDURE: CT head wo r/o stroke. TECHNIQUE: Multiple contiguous axial images were obtained through the brain without the use of intravenous contrast. Auto Exposure Controls were utilized during the CT exam to meet ALARA standards for radiation dose reduction. INDICATION: Neurologic deficit, stroke. COMPARISON: 07/31/2015 There is extensive low-density and volume loss in the right frontal lobe, likely representing encephalomalacia from previous insult. In addition, there is large hematoma which extends from the right globus pallidus into the right sylvian fissure and right lateral ventricle as well as area of right frontal encephalomalacia. This results in mild leftward bowing of the anterior interhemispheric falx without evidence of herniation. No other acute infarct or hemorrhage is identified. IMPRESSION: Possible hemorrhagic stroke extending from the right globus pallidus with extension into right frontal encephalomalacia and right lateral ventricle without significant mass effect. Dictated by: Dictated on workstation # [id number]
[2020-09-07 17:21] LABS: BILIRUBIN,URINE NEGATIVE (NEGATIVE); CLARITY,URINE CLEAR; COLOR,URINE YELLOW; GLUCOSE, URINE (UA) NEGATIVE (NEGATIVE); KETONES,URINE NEGATIVE (NEGATIVE); LEUKOCYTE ESTERASE ,URINE NEGATIVE (NEGATIVE); NITRITE,URINE NEGATIVE (NEGATIVE); PH,URINE 7.5 (5-9); PROTEIN,URINE NEGATIVE (NEGATIVE)
--- NOTE | 2020-09-07 17:26 | Diagnostic Imaging Report ---
INDICATION: Fall COMPARISON: 07/09/2020 FINDINGS: Changes of COPD as a chronic finding. Heart size is stable, no effusion or pneumothorax, no focal infiltrate. IMPRESSION: Stable chronic findings. Dictated by: Dictated on workstation # [id number]
[2020-09-07 17:31] LABS: BACTERIA,URINE NEGATIVE /HPF
[2020-09-07] MEDS ORDERED: RT-LEVALBUTEROL (XOPENEX) 1.25 MG/3 ML NEB NON-FORMULARY INH PRN (17:45)
[2020-09-07 18:10] VITALS: BP 143/72
== END 2020-09-07 18:08 | disposition short-term general hospital (02) ==
LOC: EDUNIT# 16:28 → ER 16:29
DX: I62.9 Nontraumatic intracranial hemorrhage, unspecified (principal); J44.9 Chronic obstructive pulmonary disease, unspecified; F32.9 Major depressive disorder, single episode, unspecified; E78.00 Pure hypercholesterolemia, unspecified; K21.9 Gastro-esophageal reflux disease without esophagitis; Z86.73 Personal history of transient ischemic attack (TIA), and cerebral infarction without residual deficits; Z87.891 Personal history of nicotine dependence; Z79.82 Long term (current) use of aspirin; Z79.899 Other long term (current) drug therapy
CPT/HCPCS: 36415; 51702; 70450; 71045; 80053; 81000; 82550; 82947; 84484; 85007; 85027; 85379; 85610; 85730; 93005; 93041; 96360; 99291

== ENCOUNTER 2020-09-10 00:43 | Inpatient (IN) | payer MEDICARE, OTHER ==
[~2020-09-10] VITALS: Ht 160 cm; Wt 83.1 kg
[2020-09-10] MEDS: DOCUSATE SODIUM 100 MG (COLACE) CAP PO SCH (16:29)
[2020-09-10] MEDS ORDERED: CALCIUM CARBONATE 500 MG (TUMS) TAB.CHEW PO PRN (17:45)
[2020-09-10] MEDS ORDERED: ALPRAZolam 0.25 MG (XANAX) TAB PO PRN (17:45)
[2020-09-10] MEDS ORDERED: LOPERAMIDE 2 MG (IMODIUM) TABLET PO PRN (17:45)
[2020-09-10] MEDS ORDERED: FLEET ENEMA ADULT 1 EA BTL PR PRN (17:45)
[2020-09-10] MEDS ORDERED: ONDANSETRON 4 MG (ZOFRAN) ORAL DISSOLVE TAB PO PRN (17:45)
[2020-09-10] MEDS ORDERED: diphenhydrAMINE 25 MG TAB (BENADRYL) PO PRN (17:45)
[2020-09-10] MEDS ORDERED: BISACODYL 10 MG SUPP (DULCOLAX) PR PRN (17:45)
[2020-09-10] MEDS ORDERED: LACTULOSE SYRUP 10GM/15ML (ENULOSE) 30ML UDC PO PRN (17:45)
[2020-09-10] MEDS ORDERED: guaiFENesin/CODEINE (ROBITUSSIN AC) 10ML UDC PO PRN (17:45)
[2020-09-10] MEDS ORDERED: ACETAMINOPHEN 325 MG TABLET PO PRN (17:45)
--- NOTE | 2020-09-11 11:54 | PM&R Post Admission Assessment ---
PM&R HP Date of Visit: September 11, 2020 Time of Visit: 12:00 History of Present Illness CC: CVA recovery HPI: This is a 70yoWF clinic patient of Dr Salvador who has a h/o PD, HTN, COPD O2 dependence on 2L/min continuously due to former smoking and hypothyroidism who presented from [facility] for recovery following a hemorrhagic CVA on 09/07/20. Apparently she was found down at her home on the bathroom floor and transferred to the [facility] ER then moved to [facility] for higher level of care with NSG. She stated she slipped and fell to the floor but did not hit her head. She has a h/o ischemic CVA years ago in right temporal lobe without residual and was maintained on a ASA 81mg daily since that time. Patient at the time of transfer had left facial droop with upper extremity weakness. NIH score was 2. Currently she is reporting that she is tired and otherwise she reports she is eating and drinking well and her bowels are moving. Focus will be to return to baseline function with ambulation with AD and return home. 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) Alcohol Use: Denies Use Smoking Status: Former Smoker Former Smoker, Quit: Oct 20, 2015 Type Used: Cigarettes 2nd Hand Smoke Exposure: No Recent Hopitalizations: No Immunizations Up To Date Tetanus Booster (TDap): Unknown Date of Pneumonia Vaccine: Feb 14, 2016 Date of Influenza Vaccine: Feb 14, 2016 Seasonal Allergies Seasonal Allergies: No Past Medical History Surgeries: Adenoidectomy, Tonsillectomy Respiratory: COPD, Pneumonia O2 dependence 27/11 Currently Using CPAP: No Currently Using BIPAP: No Cardiac: High Cholesterol Neurological: Stroke (years ago no residual, hemorrhagic CVA 09/07/20) Reproductive: No Sexually Transmitted Disease: No HIV/AIDS: No Female Reproductive Disorders: Denies Gastrointestinal: Gastroesophageal Reflux, Polyps Loss of Vision: Bilateral Hearing Impairment: Denies Psychosocial: Depression History of Blood Disorders: No Adverse Reaction to Blood Centeno: No (N/A) Family History Congenital heart disease 19 FATHER Hypertension 19 FATHER No Pertinent Family Hx, CVA, Hypertension 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 PM&R Allergy/Meds/Data Review Allergies Coded Allergies: No Known Drug Allergies (Unverified , 03/15/18) Home Medications Scheduled Atorvastatin Calcium (Lipitor), 80 MG PO HS, (Reported) Carbidopa/Levodopa (Carbidopa-Levo ER 50-200 Tab), 1 EACH PO TID, (Reported) Cetirizine HCl (Cetirizine HCl), 10 MG PO DAILY, (Reported) Cholecalciferol (Vitamin D3) (Vitamin D3), 1,000 UNIT PO DAILY, (Reported) Levetiracetam (Keppra), 500 MG PO BID, (Reported) Levothyroxine Sodium (Levothyroxine), 150 MCG PO DAILY, (Reported) Mometasone/Formoterol (Dulera 200 Mcg/5 Mcg Inhaler), 2 PUFF IH BID, (Reported) Montelukast Sodium (Montelukast Sodium), 10 MG PO HS, (Reported) Ranitidine HCl (Ranitidine HCl), 150 MG PO DAILY, (Reported) Ropinirole HCl (Ropinirole HCl), 0.5 MG PO HS, (Reported) Sertraline HCl (Sertraline HCl), 50 MG PO HS, (Reported) Scheduled PRN Hydralazine HCl (Hydralazine HCl), 10 MG PO Q8H PRN for FOR SB>140/90, (Reported) Discontinued Medications Aspirin (Aspirin EC), 81 MG PO DAILY, (Reported) Discontinued Reason: No Longer Taking Atorvastatin Calcium (Atorvastatin Calcium), 40 MG PO HS, (Reported) Discontinued Reason: No Longer Taking L. Acidophilus/Bulgaricus (Floranex Granules Packet), 1 GM PO ACHS Discontinued Reason: No Longer Taking Levothyroxine Sodium (Levothyroxine Sodium), 112 MCG PO DAILY, (Reported) Discontinued Reason: No Longer Taking [Zantac], 150 MG PO HS, (Reported) Discontinued Reason: No Longer Taking Current Medications Current Medications Reviewed Review of Systems Constitutional: see HPI, dizziness, malaise, weakness EENTM: no symptoms reported Respiratory: dyspnea on exertion Cardiovascular: no symptoms reported Gastrointestinal: no symptoms reported Genitourinary: no symptoms reported Musculoskeletal: back pain, joint pain Skin: no symptoms reported Psychiatric/Neurological: Depressed, Weakness All Other Systems Reviewed Negative Unless Noted: Yes Physical Exam Physical Exam Vital Signs Capillary Refill : Height, Weight, BMI Height: 5'3.00" Weight: 175lbs. 0.7oz. 79.326383wb; 31.00 BMI Method:Stated General Appearance: No Apparent Distress, WD/WN, Chronically ill Eyes: Bilateral Eye Normal Inspection, Bilateral Eye PERRL HEENT: PERRL/EOMI, Normal ENT Inspection, Pharynx Normal Neck: Full Range of Motion, Normal Inspection, Non Tender, Supple, Carotid Bruit Respiratory: Chest Non Tender, Lungs Clear, No Accessory Muscle Use, No Re spiratory Distress, Decreased Breath Sounds Cardiovascular: Regular Rate, Rhythm, No Edema, No Gallop, No JVD, No Murmur, Normal Peripheral Pulses Gastrointestinal: Normal Bowel Sounds, No Organomegaly, No Pulsatile Mass, Non Tender, Soft Back: Normal Inspection, No CVA Tenderness, No Vertebral Tenderness Extremity: Normal Capillary Refill, Normal Inspection, Normal Range of Motion, Non Tender, No Calf Tenderness, No Pedal Edema Neurologic/Psychiatric: Alert, Oriented x3, No Motor/Sensory Deficits, Normal Mood/Affect, credit and collections representative II-XII Norm as Tested, Abnormal Gait, Facial Droop (left), Motor Weakness (lower extremities bilateral 4/5) Skin: Normal Color, Warm/Dry Lymphatic: No Adenopathy PM&R Medical Assessment & Plan REHAB/MEDICAL ASSESSMENT AND PLAN: REHAB IMPAIRMENT GROUP: CVA ETIOLOGIC DIAGNOSIS: CVA The comorbidities that impact the patients function and/or functional outcome by: Advanced and O2 dependent COPD 27/11, fall risk, lives alone, carotid steno sis REHAB PLAN: The patient is being admitted to our comprehensive inpatient rehabilitation facility and can tolerate the intensity of service consisting of at least: 180 minutes of therapy a day, 5 out of 7 days a week Rehab treatment will consist of: PT OT will focus on regaining function with ambulation and prevent falls and increase independence on ADL ability The patient/family has a good understanding of our discharge process and will benefit from an interdisciplinary inpatient rehabilitation program. The patient has potential to make improvement and is in need of at least two of the fo llowing multidisciplinary therapies including but not limited to physical, occupational, speech, and prosthetics and orthotics. Additionally the patient will need services from respiratory, nutritional services, wound care, psychology, etc. (Customize this to each patient). Given the patients complex condition and risk of further medical complications, rehabilitation services can not be safely or effectively provided at a lower level of care such as a [place] facility. BARRIERS TO DISCHARGE: Lives alone ESTIMATED LOS: 10 days DISPOSITION: Home with RELEVANT CHANGES SINCE PREADMISSION SCREENING: I have compared the patients medical and functional status at the time of the preadmission screening and there are: no changes PROGNOSIS: Good REHABILITATION GOALS: 1. PT OT will focus on regaining function with ambulation and prevent falls and increase independence on ADL ability All the above goals were reviewed with the patient and he/she is in agreement. By signing this document, I acknowledge that I have personally performed a full physical examination on this patient within 24 hours of admission to this [facility] facility and have determined the patient to be able to tolerate the above course of treatment at an intensive level for a reasonable period of time. I will be completing a detailed individualized Plan of Care for this patient by day #4 of the patients stay based upon the Preadmission Screen, the Post-Admission Evaluation, and the therapy evaluations. Admission Dx/Comorbidities: (1) Hemorrhagic stroke Status: Acute ICD Codes: I61.9 - Nontraumatic intracerebral hemorrhage, unspecified (2) Parkinson disease ICD Codes: G20 - Parkinson's disease (3) Falls ICD Codes: W19.XXXA - Unspecified fall, initial encounter (4) Carotid stenosis, bilateral ICD Codes: I65.23 - Occlusion and stenosis of bilateral carotid arteries (5) Oxygen dependent ICD Codes: Z99.81 - Dependence on supplemental oxygen (6) Depression ICD Codes: F32.9 - Major depressive disorder, single episode, unspecified (7) Hypothyroidism ICD Codes: E03.9 - Hypothyroidism, unspecified (8) Hypertension ICD Codes: I10 - Essential (primary) hypertension (9) Former smoker ICD Codes: Z87.891 - Personal history of nicotine dependence (10) Diabetes ICD Codes: E11.9 - Type 2 diabetes mellitus without complications (11) COPD (chronic obstructive pulmonary disease) Status: Acute ICD Codes: J44.9 - Chronic obstructive pulmonary disease, unspecified Assessment/Plan Assessment and Plan Assess & Plan/Chief Complaint Assessment: 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 COPD with 24/7 O2 dependence Former smoker HTN Falls Hypothyroidism Parkinson's disease Carotid stenosis HLP CVA ischemic type remotely in the past without residual Plan: IRF protocol Monitor closely Monitor BP Fall risk JUN LOUIS DO September 11, 2020 11:54
[2020-09-11] MEDS ORDERED: HYDR-3922 PO (11:58)
[2020-09-11] MEDS ORDERED: LEVE500T99 PO (11:58)
[2020-09-11] MEDS ORDERED: LEVO150C4 PO (11:58)
[2020-09-11] MEDS ORDERED: ZANTAC PO (11:58)
[2020-09-11] MEDS ORDERED: ATOR80TA64 PO (11:58)
[2020-09-11] MEDS ORDERED: CARB1TAB41 PO (11:58)
[2020-09-11] MEDS ORDERED: RT-LEVALBUTEROL (XOPENEX) 1.25 MG/3 ML NEB NON-FORMULARY INH PRN (12:15)
[2020-09-11 12:19] VITALS: BP 128/57
[2020-09-11] MEDS ORDERED: SINEMET CR 50/200 (CARBIDOPA/LEVODOPA SA) TAB PO SCH (13:00)
--- NOTE | 2020-09-11 13:36 | Physical Therapy Evaluation ---
PT Evaluation-General Medical Diagnosis Admission Date September 11, 2020 at 11:35 Medical Diagnosis: (R) frontal intraparenchymal hemorrhage, intraventricular hemorrhage Onset Date: September 07, 2020 Therapy Diagnosis Therapy Diagnosis: decreased functional mobility Height/Weight Height (Feet): 5 Height (Inches): 3.00 Weight (Pounds): 175 Weight (Ounces): 0.7 Precautions Precautions/Isolations: Fall Prevention, Standard Precautions Weight Bear Status Right Lower Extremity: Right Full Weight Bearing Left Lower Extremity: Left Full Weight Bearing Referral Physician: Nils Reason for Referral: Evaluation/Treatment Medical History Pertinent Medical History: COPD, CVA, HTN, Hypothroidism Additional Medical History carotid stenosis, hyperlipidemia, (L) sided weakness, depression Current History Pt found down by family, found to have (R) frontal intraparenchymal hemorrhage, intraventricular hemorrhage. Transfer from outside facility to [facility] this date. Reviewed History: Yes Social History Home: Single Level Current Living Status: Alone Entry Into Home: Stairs Without Railing PT Steps Into Home: 2 Prior Prior Level of Function SCALE: Activities may be completed with or without assistive devices. 7-Kczsgjbmdo-foqbzky completes the activity by him/herself with no assistance from a helper. 5-Set-up or Clean-up Assistance-helper sets up or cleans up; patient completes activity. [place] assists only prior to or following the activity. 4-Supervision or Touching Assistance-helper provides verbal cues and/or touching/steadying and/or contact guard assistance as patient completes activity. Assistance may be provided throughout the activity or intermittently. 3-Partial/Moderate Assistance-helper does LESS THAN HALF the effort. [place] lifts, holds or supports trunk or limbs, but provides less than half the effort. 2-Substantial/Maximal Assistance-helper does MORE THAN HALF the effort. [place] lifts or holds trunk or limbs and provides more than half the effort. 8-Abnkobvju-rpmtua does ALL the effort. Patient does none of the effort to complete the activity. Or, the assistance of 2 or more helpers is required for the patient to complete the activity. If activity was not attempted, code reason: 7-Patient Refused. 9-Not Applicable-not attempted and the patient did not perform the activity before the current illness, exacerbation or injury. 10-Not Attempted due to Environmental Limitations-(lack of equipment, weather restraints, etc.). 88-Not Attempted due to Medical Conditions or Safety Concerns. Bed Mobility: 6 Transfers (B,C,W/C): 6 Gait: 6 Stairs: 6 Wheelchair Mobility: 9 Indoor Mobility (Ambulation): Independent Stairs: Independent Prior Devices Use: None (I) at PLOF. (+) Driving. On 2L home O2, uses concentrator with extended tubing PT Evaluation-Current Subjective Pt in bed, reports "Mainly just really tired". Pain Numeric Pain Scale: 2 Location: Anterior Location Body Site: Head Pain Description: Ache Pt/Family Goals Home alone Objective Patient Orientation: Person, Place, Time, Situation Attachments: Oxygen ROM/Strength ROM Upper Extremities See OT ROM Lower Extremities WFL for functional mobility Strength Upper Extremities See OT Strength Lower Extremities (B) knee flexion and extension: grossly 4/5, (B) hip flexion and extension: grossly 4/5, (B) DF grossly 4/5 Integumentary/Posture Integumentary See nurses' notes Sensory Vision: Wears Glasses Hearing: Functional Hand Dominance: Right Transfers Roll Left & Right (QC): 5 Sit to Lying (QC): 5 Lying to Sitting/Side of Bed(Q: 5 Sit to Stand (QC): 4 Chair/Jjf-pb-Jmcmw Xfer(QC): 4 Toilet Transfer (QC): 7 Car Transfer (QC): 4 Gait Does the Patient Walk?: Yes Mode of Locomotion: Walk Anticipated Mode of Locomotion: Walk Walk 10 feet (QC): 4 Walk 50 ft with 2 Turns(QC): 4 Walk 150 ft (QC): 4 Walking 10ft/uneven surface-QC: 4 Distance: 150 Gait Assistive Device: None Comments/Gait Description Pt ambulated 100' x 1 with no AD with CGA for balance, VCS for safety. Reports fatigue, issued FWW for balance, energy conservation. 150' x 1 with FWW with CGA. Pt does have a tendency to get very near objects on her (L) side, occasiona l VCS to negotiate around them. Wheelchair Training Does the Pt Use a Wheelchair?: No Wheel 50 ft with 2 turns (QC): 9 Wheel 150 ft (QC): 9 Type of Wheelchair: N/A Stairs #of Steps: 1 1 Step (curb) (QC): 4 4 Steps (QC): 88 12 Steps (QC): 88 Up and down curb step with no HR or AD with CGA for safety. No further steps tested this date due to c/o fatigue. Balance Sitting Static: Normal Sitting Dynamic: Good Standing Static: Fair Standing Dynamic: Fair Picking up an Object (QC): 4 Special Test Comments Pt able to don tennis shoes while seated at EOB with SBA. Pt able to don shoes and tie laces. More difficulty with placing foot into (L) shoe. Treatment Eval. In bed with O2 in situ, all needs met. Assessment/Needs Pt would benefit from skilled PT to restore functional strength and improve balance and activity tolerance to allow safe return home. Rehab Potential: Good PT Short Term Goals Short Term Goals Time Frame: September 18, 2020 Roll Left & Right: 6 Sit to lyin Lying to sitting on side of be: 6 Sit to stand: 6 Chair/myg-de-metid transfer: 6 PT Custodial Goals Manager Hiv Goals PT Manager Hiv Goals Time Frame: October 02, 2020 Roll Left & Right (QC): 6 Sit to Lying (QC): 6 Lying-Sitting on Side/Bed(QC): 6 Sit to Stand (QC): 6 Chair/Jfm-zm-Ridfo Xfer(QC): 6 Toilet Transfer (QC): 6 Car Transfer (QC): 6 Does the Patient Walk: Yes Walk 10 feet (QC): 6 Walk 50ft with 2 Turns (QC): 6 Walk 150 ft (QC): 6 Walking 10ft on Uneven Surface: 6 1 Step (curb) (QC): 6 4 Steps (QC): 6 12 Steps (QC): 6 Picking up an Object (QC): 6 Does the Pt use WC or Scooter?: No Wheel 50 feet with 2 turns (QC: 9 Type: N/A Wheel 150 feet: 9 Type: N/A PT LTGs established to allow safe return home alone. PT Plan Problem List Problem List: Activity Tolerance, Functional Strength, Safety, Balance, Gait, Transfer, Bed Mobility Treatment/Plan Treatment Plan: Continue Plan of Care Treatment Plan: Bed Mobility, Education, Functional Activity Yolanda, Functional Strength, Group Therapy, Gait, Safety, Therapeutic Exercise, Transfers Treatment Duration: October 02, 2020 Frequency: At least 5 of 7 days/Wk (IRF) Estimated Hrs Per Day: 1.5 hours per day Patient and/or Family Agrees t: Yes Safety Risks/Education Patient Education: Gait Training Teaching Recipient: Patient Teaching Methods: Discussion Response to Teaching: Verbalize Understanding, Reinforcement Needed PT POC, expectations of therapy on ARU Discharge Recommendations Therapy Discharge Recommendati: Home & Family, Post Acute PT Time/GCodes Time In: 1257 Time Out: 1328 Total Billed Treatment Time: 31 Total Billed Treatment 1, EVLOWC x 31' FELIZ BOWENS DPT September 11, 2020 13:36
[2020-09-11] MEDS ORDERED: PATIENT MAY USE OWN MEDS, ALL MC SCH (16:30)
[2020-09-11] MEDS: polyethylene glycoL POWDER 17 GM (MIRALAX) PACK PO SCH ×3 (16:32→21:00)
[2020-09-11] MEDS: SENNA W/DOCUSATE (SENOKOT S) TABLET PO SCH ×3 (16:32→21:00)
[2020-09-11] MEDS: DOCUSATE SODIUM 100 MG (COLACE) CAP PO SCH ×2 (16:32→21:00)
[2020-09-11 20:00] VITALS: BP 121/72
[2020-09-11] MEDS: rOPINIRole 0.25 MG (REQUIP) TAB PO SCH (20:15)
[2020-09-11] MEDS: SERTRALINE 50 MG (ZOLOFT) TABLET PO SCH (20:15)
[2020-09-11] MEDS: MONTELUKAST 10 MG (SINGULAIR) TAB PO SCH (20:15)
[2020-09-11] MEDS: SINEMET CR 50/200 (CARBIDOPA/LEVODOPA SA) TAB PO SCH (20:16)
[2020-09-11] MEDS: RT--FLUTICASONE/SALMETEROL 232-14 (AIRDUO RespiCLICK) IH SCH (20:22)
[2020-09-12] MEDS: MELATONIN 3 MG TABLET PO PRN ×2 (01:19→20:07)
[2020-09-12] MEDS: RT--FLUTICASONE/SALMETEROL 232-14 (AIRDUO RespiCLICK) IH SCH ×2 (06:46→19:03)
[2020-09-12 06:48] LABS: BASOPHILS # (AUTO) 0.1 10^3/uL (0.0-0.1); BASOPHILS % (AUTO) 1 % (0-10); EOSINOPHILS # (AUTO) 0.2 10^3/uL (0.0-0.3); EOSINOPHILS % (AUTO) 2 % (0-10); HEMATOCRIT 37 % (35-52); HEMOGLOBIN 12.4 g/dL (11.5-16.0); LYMPHOCYTES # (AUTO) 2.1 10^3/uL (1.0-4.0); LYMPHOCYTES % (AUTO) 25 % (12-44); MEAN CORPUSCULAR HEMOGLOBIN 31 pg (25-34); MEAN CORPUSCULAR HGB CONC 33 g/dL (32-36); MEAN CORPUSCULAR VOLUME 94 fL (80-99); MEAN PLATELET VOLUME 9.6 fL (9.0-12.2); MONOCYTES # (AUTO) 0.9 10^3/uL (0.0-1.0); MONOCYTES % (AUTO) 10 % (0-12); NEUTROPHILS # (AUTO) 5.3 10^3/uL (1.8-7.8); NEUTROPHILS % (AUTO) 62 % (42-75); PLATELET COUNT 230 10^3/uL (130-400); WHITE BLOOD COUNT 8.5 10^3/uL (4.3-11.0)
[2020-09-12 07:00] LABS: ALBUMIN 3.8 GM/DL (3.2-4.5)
[2020-09-12 07:01] LABS: CHLORIDE 101 MMOL/L (98-107); SODIUM 138 MMOL/L (135-145)
[2020-09-12 07:02] LABS: CALCIUM 8.2 MG/DL (8.5-10.1)
[2020-09-12 07:03] LABS: GLUCOSE 117 MG/DL (70-105); TOTAL PROTEIN 6.5 GM/DL (6.4-8.2)
[2020-09-12 07:04] LABS: CARBON DIOXIDE 24 MMOL/L (21-32)
[2020-09-12 07:06] LABS: ALKALINE PHOSPHATASE 63 U/L (40-136)
[2020-09-12 07:07] LABS: CREATININE SERUM 0.76 MG/DL (0.60-1.30); GFR ESTIMATED > 60
[2020-09-12 07:08] LABS: BUN/CREATININE RATIO 18
[2020-09-12 07:10] LABS: ALANINE AMINOTRANSFERASE 8 U/L (0-55)
--- NOTE | 2020-09-12 07:11 | PM&R Progress Note ---
Subjective HPI/CC On Admission Date Seen by Provider: September 12, 2020 Time Seen by Provider: 12:15 Subjective/Events-last exam 09/12/20: Patient doing well Has a DILLON and APAP given No other pain Peripheral vision loss noted PCP visited her today Checked meds and labs BP ok Review of Systems General: Fatigue, Malaise Neurological: Weakness Objective Exam Vital Signs Vital Signs Date Time Temp Pulse Resp B/P (MAP) Pulse Ox O2 Delivery O2 Flow Rate FiO2 09/12/20 08:46 Nasal Cannula 2.00 09/12/20 08:00 72 22 134/60 (84) 99 09/11/20 20:00 37.2 Capillary Refill : General Appearance: No Apparent Distress, WD/WN, Chronically ill HEENT: PERRL/EOMI, Normal ENT Inspection, Pharynx Normal Neck: Full Range of Motion, Normal Inspection, Non Tender, Supple, Carotid Bruit Respiratory: Chest Non Tender, Lungs Clear, No Accessory Muscle Use, No Respiratory Distress, Decreased Breath Sounds Cardiovascular: Regular Rate, Rhythm, No Edema, No Gallop, No JVD, No Murmur, Normal Peripheral Pulses Gastrointestinal: Normal Bowel Sounds, No Organomegaly, No Pulsatile Mass, Non Tender, Soft Back: Normal Inspection, No CVA Tenderness, No Vertebral Tenderness Extremity: Normal Capillary Refill, Normal Inspection, Normal Range of Motion, Non Tender, No Calf Tenderness, No Pedal Edema Neurologic/Psychiatric: Alert, Oriented x3, No Motor/Sensory Deficits, Normal Mood/Affect, global compensation manager II-XII Norm as Tested, Abnormal Gait, Facial Droop (left), Motor Weakness (lower extremities bilateral 4/5) Skin: Normal Color, Warm/Dry Lymphatic: No Adenopathy Results/Procedures Lab Laboratory Tests 09/12/20 06:35 Patient resulted labs reviewed. FIM Transfers Therapy Code Descriptions/Definitions Functional [place] Measure: 0=Not Assessed/NA 4=Minimal Assistance 1=Total Assistance 5=Supervision or Setup 2=Maximal Assistance 6=Modified [place] 3=Moderate Assistance 7=Complete IndependenceSCALE: Activities may be completed with or without assistive devices. 9-Yumlbvdvow-gdjtzuv completes the activity by him/herself with no assistance from a helper. 5-Set-up or Clean-up Assistance-helper sets up or cleans up; patient completes activity. [place] assists only prior to or following the activity. 4-Supervision or Touching Assistance-helper provides verbal cues and/or touching/steadying and/or contact guard assistance as patient completes activity. Assistance may be provided throughout the activity or intermittently. 3-Partial/Moderate Assistance-helper does LESS THAN HALF the effort. [place] lifts, holds or supports trunk or limbs, but provides less than half the effort. 2-Substantial/Maximal Assistance-helper does MORE THAN HALF the effort. [place] lifts or holds trunk or limbs and provides more than half the effort. 1-Aszkvsyja-cgvbtg does ALL the effort. Patient does none of the effort to complete the activity. Or, the assistance of 2 or more helpers is required for the patient to complete the activity. If activity was not attempted, code reason: 7-Patient Refused. 9-Not Applicable-not attempted and the patient did not perform the activity before the current illness, exacerbation or injury. 10-Not Attempted due to Environmental Limitations-(lack of equipment, weather restraints, etc.). 88-Not Attempted due to Medical Conditions or Safety Concerns. Roll Left to Right (QC): 5 Sit to Lying (QC): 5 Sit to Stand (QC): 4 Chair/Fhg-wl-Wwzbk Xfer(QC): 4 Car Transfer (QC): 4 Gait Training Does the Patient Walk?: Yes Walk 10 feet (QC): 4 Walk 50 ft with 2 Turns(QC): 4 Walk 150 ft (QC): 4 Walking 10ft/uneven surface-QC: 4 Gait Assistive Device: None Wheelchair Training Does the Pt Use a Wheelchair?: No Wheel 50 ft with 2 turns (QC): 9 Wheel 150 ft (QC): 9 Type of Wheelchair: N/A Stair Training #of Steps: 1 1 Step (curb) (QC): 4 4 Steps (QC): 88 12 Steps (QC): 88 Balance Picking up an Object (QC): 4 Assessment/Plan Assessment and Plan Assess & Plan/Chief Complaint Assessment: 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
[2020-09-12 08:00] VITALS: BP 134/60
[2020-09-12] MEDS: FAMOTIDINE 20 MG (PEPCID) TABLET PO SCH (08:23)
[2020-09-12] MEDS: LORATADINE (CLARITIN) 10 MG TAB PO SCH (08:23)
[2020-09-12] MEDS: VITAMIN D3 25 MCG (1,000 UNITS) TABLET PO SCH (08:23)
[2020-09-12] MEDS: LEVOTHYROXINE 75 MCG (LEVOTHROID) TABLET PO SCH (08:23)
[2020-09-12] MEDS: polyethylene glycoL POWDER 17 GM (MIRALAX) PACK PO SCH ×2 (08:24→20:21)
[2020-09-12] MEDS: SINEMET CR 50/200 (CARBIDOPA/LEVODOPA SA) TAB PO SCH ×3 (08:24→20:09)
[2020-09-12] MEDS: SENNA W/DOCUSATE (SENOKOT S) TABLET PO SCH ×2 (08:24→20:07)
[2020-09-12] MEDS: DOCUSATE SODIUM 100 MG (COLACE) CAP PO SCH ×2 (08:24→20:07)
--- NOTE | 2020-09-12 09:55 | Consultation ---
History of Present Illness History of Present Illness Patient Consulted On(nataliia/time) 09/12/20 09:48 Date Seen by Provider: September 12, 2020 Time Seen by Provider: 09:48 History of Present Illness This is a 70 year old female who initially presented to the emergency room on September 07 with an acute right sided hemorrhagic stroke. She was transferred to [facility] in [place] and has now been transferred back to [facility] for inpatient rehab. Her main complaint is headache. She rates it at a 1-2 and states it is just nagging and constant. She denies any other issues like weakness or speech difficulties. Allergies and Home Medications Allergies Coded Allergies: No Known Drug Allergies (Unverified , 03/15/18) Home Medications Atorvastatin Calcium 80 Mg Tablet, 80 MG PO HS, (Reported) Last Action: Continued Carbidopa/Levodopa 1 Each Tablet.er, 1 EACH PO TID, (Reported) Last Action: Continued Cetirizine HCl 10 Mg Tablet, 10 MG PO DAILY, (Reported) Last Action: Converted Cholecalciferol (Vitamin D3) 1,000 Unit Capsule, 1,000 UNIT PO DAILY, (Reported) Last Action: Converted Hydralazine HCl 10 Mg Tablet, 10 MG PO Q8H PRN for FOR SB>140/90, (Reported) Last Action: Continued Levetiracetam 500 Mg Tablet, 500 MG PO BID, (Reported) Last Action: Continued Levothyroxine Sodium 150 Mcg Capsule, 150 MCG PO DAILY, (Reported) Last Action: Converted Mometasone/Formoterol 13 Gm Hfa.aer.ad, 2 PUFF IH BID, (Reported) Last Action: Converted Montelukast Sodium 10 Mg Tablet, 10 MG PO HS, (Reported) Last Action: Continued Ranitidine HCl 150 Mg Tablet, 150 MG PO DAILY, (Reported) Last Action: Converted Ropinirole HCl 0.5 Mg Tablet, 0.5 MG PO HS, (Reported) Last Action: Converted Sertraline HCl 50 Mg Tablet, 50 MG PO HS, (Reported) Last Action: Continued Patient Home Medication List Home Medication List Reviewed: Yes Past Qufdukc-Sewdfw-Uzwhxe Hx Past Med/Social Hx: Reviewed Nursing Past Med/Soc Hx, Reviewed and Corrections made Patient Social History Alcohol Use: Denies Use Smoking Status: Former Smoker Type Used: Cigarettes Former Smoker, Quit: Oct 20, 2015 2nd Hand Smoke Exposure: No Recent Hopitalizations: No Have you traveled recently?: No Alcohol Use?: No Immunizations Up To Date Tetanus Booster (TDap): Unknown Date of Pneumonia Vaccine: Feb 14, 2016 Date of Influenza Vaccine: Feb 14, 2016 Seasonal Allergies Seasonal Allergies: No Past Medical History Surgeries: Yes Adenoidectomy, Tonsillectomy Respiratory: Yes (2L O2) COPD Currently Using CPAP: No Currently Using BIPAP: No Cardiac: Yes High Cholesterol Neurological: Yes (essential tremor LEFT HAND) Stroke (years ago no residual, hemorrhagic CVA 09/07/20) Reproductive Disorders: No Female Reproductive Disorders: Denies Sexually Transmitted Disease: No HIV/AIDS: No Genitourinary: No Gastrointestinal: Yes Gastroesophageal Reflux, Polyps Musculoskeletal: No (weakness) Endocrine: Yes (THYROID NODULES) HEENT: Yes (blurred vison. wears glasses) Loss of Vision: Bilateral Hearing Impairment: Denies Cancer: No Psychosocial: Yes Depression Integumentary: No Blood Disorders: No Adverse Reaction/Blood Tranf: No (N/A) Family Medical History Congenital heart disease 19 FATHER Hypertension 19 FATHER No Pertinent Family Hx, CVA, Hypertension Review of Systems Review of Systems General: Fatigue HEENT: Head Aches, Visual Changes (patient denies but therapy feels her peripheral vision may be affected some) Pulmonary: No Dyspnea, No Cough, No Pleuritic Chest Pain, No Other Cardiovascular: No: Chest Pain, Palpitations, Orthopnea, Paroxysmal Noc. Dyspnea, Edema, Lt Headedness, Other Gastrointestinal: No: Nausea, Vomiting, Abdominal Pain, Diarrhea, Constipation, Melena, Hematochezia, Other Genitourinary: No Dysuria, No Frequency, No Incontinence, No Hematuria, No Retention, No Other Musculoskeletal: No: other, neck pain, shoulder pain, arm pain, back pain, hand pain, leg pain, foot pain Neurological: Weakness All Other Systems Reviewed All Other Systems Reviewed: Yes Physical Exam Vital Signs Vital Signs - First Documented 09/11/20 12:19 Temp 37.6 Pulse 89 Resp 18 B/P (MAP) 128/57 (80) Pulse Ox 96 O2 Delivery Nasal Cannula O2 Flow Rate 2.00 Capillary Refill : Height, Weight, BMI Height: 5'3.00" Weight: 175lbs. 0.7oz. [id number]; 32.26 BMI Method:Stated General Appearance: Mild Distress HEENT: Normal ENT Inspection Neck: Supple Respiratory: Lungs Clear, Decreased Breath Sounds Cardiovascular: Regular Rate, Rhythm Gastrointestinal: Normal Bowel Sounds, Non Tender, Soft Rectal: Deferred Back: No CVA Tenderness Extremity: Non Tender, No Calf Tenderness, No Pedal Edema Neurologic/Psychiatric: Alert, Oriented x3 Skin: Warm/Dry Comments Laboratory Tests 09/12/20 06:35: White Blood Count 8.5, Red Blood Count 3.96, Hemoglobin 12.4, Hematocrit 37, Mean Corpuscular Volume 94, Mean Corpuscular Hemoglobin 31, Mean Corpuscular Hemoglobin Concent 33, Red Cell Distribution Width 12.4, Platelet Count 230, Mean Platelet Volume 9.6, Immature Granulocyte % (Auto) 1, Neutrophils (%) (Auto) 62, Lymphocytes (%) (Auto) 25, Monocytes (%) (Auto) 10, Eosinophils (%) (Auto) 2, Basophils (%) (Auto) 1, Neutrophils # (Auto) 5.3, Lymphocytes # (Auto) 2.1, Monocytes # (Auto) 0.9, Eosinophils # (Auto) 0.2, Basophils # (Auto) 0.1, Immature Granulocyte # (Auto) 0.0, Sodium Level 138, Potassium Level 4.0, Chloride Level 101, Carbon Dioxide Level 24, Anion Gap 13, Blood Urea Nitrogen 14, Creatinine 0.76, Estimat Glomerular Filtration Rate > 60, BUN/Creatinine Ratio 18, Glucose Level 117H, Calcium Level 8.2L, Corrected Calcium 8.4L, Total Bilirubin 1.0, Aspartate Amino Transf (AST/SGOT) 21, Alanine Aminotransferase (ALT/SGPT) 8, Alkaline Phosphatase 63, Total Protein 6.5, Albumin 3.8 Assessment/Plan Assessment/Plan Admission Dx 1. Acute Right Sided Hemorrhagic [place] with ongoing cephalgia, possible peripheral vision loss and some impulsivity per nursing--PT/OT and ST 2. Hypertension--stable 3. COPD--oxygen dependant 4. Hypothyroidism--stable, back on home dose 5. Previous Ischemic CVA with encephalomalacia present Problems: (1) Hemorrhagic stroke (2) Parkinson disease (3) Falls (4) Carotid stenosis, bilateral (5) Oxygen dependent (6) Depression (7) Hypothyroidism (8) Hypertension (9) Former smoker (10) Diabetes (11) COPD (chronic obstructive pulmonary disease) Clinical Quality Measures DVT/VTE Risk/Contraindication: Contraindications-Pharm: Other *list below* Other: hemorrhagic cva AMEYA PEREZ DO September 12, 2020 09:55
[2020-09-12 20:01] VITALS: BP 139/61
[2020-09-12] MEDS: MONTELUKAST 10 MG (SINGULAIR) TAB PO SCH (20:07)
[2020-09-12] MEDS: rOPINIRole 0.25 MG (REQUIP) TAB PO SCH (20:08)
[2020-09-12] MEDS: SERTRALINE 50 MG (ZOLOFT) TABLET PO SCH (20:08)
[2020-09-13] MEDS: RT--FLUTICASONE/SALMETEROL 232-14 (AIRDUO RespiCLICK) IH SCH ×2 (07:01→18:23)
[2020-09-13 08:00] VITALS: BP 139/77
--- NOTE | 2020-09-13 09:26 | Occupational Therapy Eval ---
OT Evaluation-General/PLF Medical Diagnosis Admission Date September 11, 2020 at 11:35 Medical Diagnosis: (R) frontal intraparenchymal hemorrhage, intraventricular hemorrhage Onset Date: September 07, 2020 Therapy Diagnosis Therapy Diagnosis: decreased ADL status Height/Weight Height (Feet): 5 Height (Inches): 3.00 Weight (Pounds): 175 Weight (Ounces): 0.7 Precautions Precautions/Isolations: Fall Prevention, Standard Precautions Referral Physician: Nils Referral Reason: Evaluation/Treatment Medical History Pertinent Medical History: COPD, CVA, HTN, Hypothroidism Additional Medical History carotid stenosis, COPD (2L NC at PLOF), HTN, HLD, anxiety/depression, ischemic stroke, GERD, Polyps Current History found collapsed on bathroom floor, pt indicates she slipped and fell, no LOC. CT shows hemorrhagic stroke, presents wtih L facial droop and L weakness Social History Home: Single Level Current Living Status: Alone Entry Into Home: Stairs Without Railing Steps Into Home: 2 ADL-Prior Level of Function SCALE: Activities may be completed with or without assistive devices. 8-Yxljottkcx-sprgraw completes the activity by him/herself with no assistance from a helper. 5-Set-up or Clean-up Assistance-helper sets up or cleans up; patient completes activity. [place] assists only prior to or following the activity. 4-Supervision or Touching Assistance-helper provides verbal cues and/or touching/steadying and/or contact guard assistance as patient completes activity. Assistance may be provided throughout the activity or intermittently. 3-Partial/Moderate Assistance-helper does LESS THAN HALF the effort. [place] lifts, holds or supports trunk or limbs, but provides less than half the effort. 2-Substantial/Maximal Assistance-helper does MORE THAN HALF the effort. [place] lifts or holds trunk or limbs and provides more than half the effort. 4-Nnlcpwaqo-zplyyb does ALL the effort. Patient does none of the effort to complete the activity. Or, the assistance of 2 or more helpers is required for the patient to complete the activity. If activity was not attempted, code reason: 7-Patient Refused. 9-Not Applicable-not attempted and the patient did not perform the activity before the current illness, exacerbation or injury. 10-Not Attempted due to Environmental Limitations-(lack of equipment, weather restraints, etc.). 88-Not Attempted due to Medical Conditions or Safety Concerns. ADL PLOF Comments Pt indicates IND at PLOF with ADLs and functional mobility, no AD/AE. Self Care: Independent Functional Cognition: Independent DME/Equipment: Bath Bench, Shower OT Current Status Subjective Pt seated EOB eating breakfast, agreeable to OT evaluation and tx. Mental Status/Objective Patient Orientation: Person, Place, Time, Situation Attachments: Oxygen Current Glasses/Contacts: Yes Hearing Aids: No Dentures/Partials: No Hand Dominance: Right Upper Extremity ROM WFL Upper Extremity Coordination WFL Upper Extremity Sensation grossly 4+/5 RUE, grossly 4/5 LUE ADL-Treatment Eating (QC): 6 (IND with breakfast, able to cut food, use utensils, and open containers.) Oral Hygiene (QC): 4 (SBA standing at sink) Shower/Bathe Self (QC): 4 (CGA in stand, pt required cues for safety with instruction to sit down throughout shower. ) Upper Body Dressing (QC): 4 (cues with O2 management) Lower Body Dressing (QC): 3 (Min A with fasteners. Pt able to doff/don with CGA in stand) On/Off Footwear (QC): 3 (Min A with orientation of L gripper sock.) Toileting Hygiene (QC): 4 (CGA with clothing management, pt able to perform hygiene seated) increased time with all ADLs, cues for sequencing, and frequent rest breaks. Other Treatments Pt seated EOB, finishing breakfast. OT educated pt on purpose and benefit of OT, she verbalized understanding. Pt provided information about PLOF and home set up, and participated in UE screen. OT gathered pt's clothing and set up shower. Pt used FWW with CGA to ambulate into bathroom and onto toilet. Pt completed toileting, then transferred to [place], doffed clothes. Pt doffed night gown, requiring cue to sit down and assistance to manage O2 tubing, as pt began showering while O2 tubing was still in shirt. OT cued pt to sit down again (pt required verbal instruction x3 before she sat on KY). Pt also began showering with glasses on, requiring cue to remove glasses. Pt completed shower seated on KY, standing to wash buttocks. Pt then placed 1 foot on bench to wash LEs while standing, required cue to sit down to wash LEs. Pt completed shower, then dried off, transferred to toilet to complete dressing. With dressing, pt would start donning one article of clothing, then move onto the next article without fully finishing the first. (Ex: Pt completed fasteners of bra, then donned RLE into pant leg, turned bra around and threaded LUE into bra strap, then threaded LLE into pants, threaded shirt overhead, then threaded RUE into bra strap.) Pt stood at sink to complete oral care, then transferred to recliner. OT educated pt on AE for LE dressing, demonstrating each AE. Pt verbalized understanding and agreement to trial AE in future txs. Post tx, pt seated in recliner, call light in reach and all needs met. Education OT Patient Education: Correct positioning, Modified ADL techniques, Progress toward Goal/Update tx plan, Purpose of tx/functional activities Teaching Recipient: Patient Teaching Methods: Discussion Response to Teaching: Verbalize Understanding OT Short Term Goals Short Term Goals Time Frame: September 24, 2020 Shower/bathe self: 5 Upper body dressin Lower body dressin Putting on/taking off footwear: 5 OT Records Associate Goals Records Associate Goals Time Frame: Oct 08, 2020 Eating (QC): 6 Oral Hygiene (QC): 6 Toileting Hygiene (QC): 6 Shower/Bathe Self (QC): 6 Upper Body Dressing (QC): 6 Lower Body Dressing (QC): 6 On/Off Footwear (QC): 6 Additional Goals: 1-Demonstrate ADL Tasks, 2-Verbalize Understanding, 3- ImproveStrength/Yolanda 1=Demonstrate adherence to instructed precautions during ADL tasks. 2=Patient will verbalize/demonstrate understanding of assistive devices/marii fications for ADL. 3=Patient will improve strength/tolerance for activity to enable patient to perform ADL's. OT Education/Plan Problem List/Assessment Assessment: Decreased Activ Tolerance, Decreased Safety Aware, Decreased UE Strength, Impaired I ADL's, Impaired Self-Care Skills Discharge Recommendations Plan/Recommendations: Continue POC Treatment Plan/Plan of Care Patient would benefit from OT for education, treatment and training to promote independence in ADL's, mobility, safety and/or upper extremity function for ADL's. Plan of Care: ADL Retraining, Functional Mobility, Group Exercise/Act as Ind, UE Funct Exercise/Act Treatment Duration: Oct 08, 2020 Frequency: At least 5 of 7 days/Wk (IRF) Estimated Hrs Per Day: 1.5 hours per day Agreement: Yes Rehab Potential: Good Time/GCodes Start Time: 08:00 Stop Time: 09:30 Total Time Billed (hr/min): 90 Billed Treatment Time 1, EVL (10'), ADL 5 (80') ANYA CARBALLO OT September 13, 2020 09:26
--- NOTE | 2020-09-13 09:29 | ST Cognitive Linguistic Eval ---
Speech Evaluation-General Medical Diagnosis (R) frontal intraparenchymal hemorrhage, intraventricular hemorrhage Onset Date: September 07, 2020 Therapy Diagnosis Therapy Diagnosis: Cognitive communication Precautions Precautions: Fall Precautions/Isolations: Fall Prevention, Standard Precautions Referral Referring Physician: Dr. Wray Medical History Pertinent Medical History: COPD, CVA, HTN, Hypothroidism COPD, CVA, HTN, Hypothyroidism. Current History CVA Reviewed History: Yes Social History Current Living Status: Alone Speech PLF-Current Status Prior Level of Function Prior to CVA, pt was living at home alone. Pt did not require assistance for ADL's and reports being completely independent. Subjective Pt was alert and pleasant. Pt agreed to ST evaluation. Pt reports "hopefully I will be able to go back home alone." Patient's daughter was present for the evaluation. Language Eval: Auditory Comprehends Simple Yes/No Ques: Functional Indent/Objects Multiple [place]: Functional Ident/Pics in Multiple [place]: Functional Follows 1-Step Commands: Functional Follows Complex Directions: Functional Follows General Conversations: Functional Language Eval: Verbal Language Completes Spontaneous Greeting: Functional Produces Auto, Serial Info: Functional Imitates Simple Words/Phrases: Functional Word Finding: Functional Requests Basic Needs: Functional States Basic Personal Info: Functional Expresses Complex Ideas: Functional Language Evaluation: Reading Comprehends Single Nouns: Functional Follows Simple Written Direct: Functional Comprehends Multiple Sentences: Functional Cognitive Patient Orientation Pt oriented x3. Objective Cognitive Domain Attention: WNL Memory: WNL Problem Solving: Functional Executive Functions: WNL Visuospatial Skills: WNL Objective Formal/Standardized Tests [facility] Mental Status Examination ([facility]) Results 27/30 Oral Motor/Speech Production Within normal limits. Impression Pt is a pleasant 70 y/o female admitted to the ARU on 09/11/20 s/p fall from CVA. Pt agreed to ST evaluation. Upon evaluation, pt reported she had an initial st roke 3-4 years prior with no residual problems. Pt was administered the SLUMS and scored 27/30, indicating no need for further ST services. Speech Patient Assess Expression of Ideas/Wants: Expression (4) Understanding Verbal Content: Understands (4) Brief Interview-Mental Status: Yes Repetition of Three Words: Three (3) Temporal Orientation: Year: Correct (3) Temporal Orientation: Month: Accurate within 5 days(2) Temporal Orientation: Day: Correct (1) Recall : Wear to say "Sock": Yes, no cue required (2) Recall : Color: Yes, no cue required (2) Recall : Bed: Yes, no cue required (2) Memory/Recall Ability: Current season, That he or she is in a hsp/hsp unit Speech-Plan Patient/Family Goals Patient/Family Goals: Pt plans to return home where she lives independently. Her daughter lives in town and can assist if needed. Treatment Plan Speech Therapy Treatment Plan: Discontinue ST Treatment Duration: September 13, 2020 Frequency: 1 time per week Estimated Hrs Per Day: .5 hour per day Rehab Potential: Good Barriers to Learning: Medical status and age. Pt/Family Agrees to Plan: Yes Safety Risks/Education Teaching Recipient: Patient Teaching Methods: Discussion Response to Teaching: Verbalize Understanding Education Topics Provided: Safety awareness and compensatory cognitive commication strategies Time Speech Therapy Time In: 09:30 Speech Therapy Time Out: 10:00 Total Billed Time: 30 Billed Treatment Time 1, SPSNDCOMP ALISON Story September 13, 2020 09:29
--- NOTE | 2020-09-13 09:39 | Consultation-Cardiology ---
HPI-Cardiology Cardiology Consultation Date of Consultation 09/13/20 Date of Admission Time Seen by Provider: 08:30 Indication: Hemorrhagic CVA HPI Patient is a 70 y/o female with hx of COPD, DM. Was evaluated in ER on September 07, 2020, found to have right hemorrhagic CVA and transferred to [facility]. Transferred back to [facility] to IRF. Complains of mild headache. Denies any one sided weakness or slurred speech. Denies any chest pain or increased dyspnea. Denies any hx of CAD. 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[employer]) Smoking Status: Former Smoker Type Used: Cigarettes 2nd Hand Smoke Exposure: No Recent Hopitalizations: No Have you traveled recently?: No Alcohol Use?: No Immunizations Up To Date Tetanus Booster (TDap): Unknown Date of Pneumonia Vaccine: Feb 14, 2016 Date of Influenza Vaccine: Feb 14, 2016 Past Medical History COPD, DM Family Medical History Significant Family History: No Pertinent Family Hx, CVA, Hypertension Family History: Congenital heart disease 19 FATHER Hypertension 19 FATHER Review of Systems-General Review of Systems Constitutional: see HPI, dizziness, malaise, weakness EENTM: see HPI, no symptoms reported Respiratory: see HPI, dyspnea on exertion Cardiovascular: no symptoms reported, see HPI; No chest pain, No edema, No Hx of Intervention, No palpitations Gastrointestinal: no symptoms reported Genitourinary: no symptoms reported Musculoskeletal: back pain, joint pain Skin: no symptoms reported Psychiatric/Neurological: Depressed, Weakness All Other Systems Reviewed Negative Unless Noted: Yes Reviewed Test Results Reviewed Test Results Lab Laboratory Tests Test 09/13/20 10:56 Range/Units Glucometer 134 H 70-110 MG/DL Physical Exam Physical Exam Vital Signs Vital Signs - First Documented 09/11/20 12:19 Temp 37.6 Pulse 89 Resp 18 B/P (MAP) 128/57 (80) Pulse Ox 96 O2 Delivery Nasal Cannula O2 Flow Rate 2.00 Capillary Refill : Height, Weight, BMI Height: 5'3.00" Weight: 175lbs. 0.7oz. 79.058157ny; 32.26 BMI Method:Stated General Appearance: No Apparent Distress, WD/WN, Chronically ill Eyes: Bilateral Eye Normal Inspection, Bilateral Eye PERRL HEENT: PERRL/EOMI, Normal ENT Inspection, Pharynx Normal Neck: Full Range of Motion, Normal Inspection, Non Tender, Supple, Carotid Bruit Respiratory: Chest Non Tender, Lungs Clear, No Accessory Muscle Use, No Respiratory Distress, Decreased Breath Sounds Cardiovascular: Regular Rate, Rhythm, No Edema, No Gallop, No JVD, No Murmur, Normal Peripheral Pulses Gastrointestinal: Normal Bowel Sounds, No Organomegaly, No Pulsatile Mass, Non Tender, Soft Rectal: Deferred Back: Normal Inspection, No CVA Tenderness, No Vertebral Tenderness Extremity: Normal Capillary Refill, Normal Inspection, Normal Range of Motion, Non Tender, No Calf Tenderness, No Pedal Edema Neurologic/Psychiatric: Alert, Oriented x3, No Motor/Sensory Deficits, Normal Mood/Affect, certified wellness program coordinator II-XII Norm as Tested, Abnormal Gait, Facial Droop (left), Motor Weakness (lower extremities bilateral 4/5) Skin: Normal Color, Warm/Dry Lymphatic: No Adenopathy A/P-Cardiology Admission Diagnosis Hemorrhagic CVA Generalized debility/weakness COPD DM Assessment/Plan Hemorrhagic CVA, right globus pallidus with extention into right frontal encephalomalacia and right ventricle on 09/07/20 with left sided weakness and facial droop, symptoms improving. Continues to c/o mild DILLON. Normal blood pressure, no history of hypertension, continue to monitor blood pressure Generalized debility/weakness, continue PT/OT COPD, oxygen dependent, management per medical services DM, management per medical services Obesity Extobaccoism Multiple risk factors for underlying CAD, consider further workup as outpatient. Thank you for allowing us to participate in the management of Ms. Haas. This is Shaylee Booth PA-C, as a scribe for Dr. Thurman. Patient was seen and evaluated with Shaylee, she was sitting at bedside, feeling better Still having some weakness Receiving physical and occupational therapy, reported falling without hitting her head due to slipping. Not maintained on any anticoagulation. Continue to monitor blood pressure I reviewed the note and interviewed the patient and agree with the current scribed note, used few modification using italic font Clinical Quality Measures DVT/VTE Risk/Contraindication: Contraindications-Pharm: Other *list below* Other: hemorrhagic cva SHAYLEE HEIN September 13, 2020 09:39 YASMINE THURMAN MD September 13, 2020 11:56
--- NOTE | 2020-09-13 09:46 | PM&R Progress Note ---
Subjective HPI/CC On Admission Date Seen by Provider: September 13, 2020 Time Seen by Provider: 09:15 Subjective/Events-last exam 09/13/20: Patient doing really well No major issues Bowels move 2 days ago Oxygen is 24/7 09/12/20: Patient doing well Has a DILLON and APAP given No other pain Peripheral vision loss noted PCP visited her today Checked meds and labs BP ok Review of Systems General: Fatigue, Malaise Pulmonary: Dyspnea Objective Exam Vital Signs Vital Signs Date Time Temp Pulse Resp B/P (MAP) Pulse Ox O2 Delivery O2 Flow Rate FiO2 09/13/20 08:00 36.1 96 16 139/77 (97) 92 Nasal Cannula 2.00 Capillary Refill : General Appearance: No Apparent Distress, WD/WN, Chronically ill HEENT: PERRL/EOMI, Normal ENT Inspection, Pharynx Normal Neck: Full Range of Motion, Normal Inspection, Non Tender, Supple, Carotid Bruit Respiratory: Chest Non Tender, Lungs Clear, No Accessory Muscle Use, No Respiratory Distress, Decreased Breath Sounds Cardiovascular: Regular Rate, Rhythm, No Edema, No Gallop, No JVD, No Murmur, Normal Peripheral Pulses Gastrointestinal: Normal Bowel Sounds, No Organomegaly, No Pulsatile Mass, Non Tender, Soft Rectal: Deferred Back: Normal Inspection, No CVA Tenderness, No Vertebral Tenderness Extremity: Normal Capillary Refill, Normal Inspection, Normal Range of Motion, Non Tender, No Calf Tenderness, No Pedal Edema Neurologic/Psychiatric: Alert, Oriented x3, No Motor/Sensory Deficits, Normal Mood/Affect, form designer II-XII Norm as Tested, Abnormal Gait, Facial Droop (left), Motor Weakness (lower extremities bilateral 4/5) Skin: Normal Color, Warm/Dry Lymphatic: No Adenopathy Results/Procedures Lab Patient resulted labs reviewed. FIM Transfers Therapy Code Descriptions/Definitions Functional [place] Measure: 0=Not Assessed/NA 4=Minimal Assistance 1=Total Assistance 5=Supervision or Setup 2=Maximal Assistance 6=Modified [place] 3=Moderate Assistance 7=Complete IndependenceSCALE: Activities may be completed with or without assistive devices. 0-Aigxtqkdlf-lgcyrmd completes the activity by him/herself with no assistance from a helper. 5-Set-up or Clean-up Assistance-helper sets up or cleans up; patient completes activity. [place] assists only prior to or following the activity. 4-Supervision or Touching Assistance-helper provides verbal cues and/or touching/steadying and/or contact guard assistance as patient completes activity. Assistance may be provided throughout the activity or intermittently. 3-Partial/Moderate Assistance-helper does LESS THAN HALF the effort. [place] lifts, holds or supports trunk or limbs, but provides less than half the effort. 2-Substantial/Maximal Assistance-helper does MORE THAN HALF the effort. [place] lifts or holds trunk or limbs and provides more than half the effort. 4-Umsjwocqp-qrpukf does ALL the effort. Patient does none of the effort to complete the activity. Or, the assistance of 2 or more helpers is required for the patient to complete the activity. If activity was not attempted, code reason: 7-Patient Refused. 9-Not Applicable-not attempted and the patient did not perform the activity before the current illness, exacerbation or injury. 10-Not Attempted due to Environmental Limitations-(lack of equipment, weather restraints, etc.). 88-Not Attempted due to Medical Conditions or Safety Concerns. Roll Left to Right (QC): 5 Sit to Lying (QC): 5 Sit to Stand (QC): 4 Chair/Jeb-us-Utjjd Xfer(QC): 4 Car Transfer (QC): 4 Gait Training Does the Patient Walk?: Yes Walk 10 feet (QC): 4 Walk 50 ft with 2 Turns(QC): 4 Walk 150 ft (QC): 4 Walking 10ft/uneven surface-QC: 4 Gait Assistive Device: None Wheelchair Training Does the Pt Use a Wheelchair?: No Wheel 50 ft with 2 turns (QC): 9 Wheel 150 ft (QC): 9 Type of Wheelchair: N/A Stair Training #of Steps: 1 1 Step (curb) (QC): 4 4 Steps (QC): 88 12 Steps (QC): 88 Balance Picking up an Object (QC): 4 ADL-Treatment Eating (QC): 6 (IND with breakfast, able to cut food, use utensils, and open containers.) Oral Hygiene (QC): 4 (SBA standing at sink) Shower/Bathe Self (QC): 4 (CGA in stand, pt required cues for safety with instruction to sit down throughout shower. ) Upper Body Dressing (QC): 4 (cues with O2 management) Lower Body Dressing (QC): 3 (Min A with fasteners. 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 COPD with 24/7 O2 dependence Former smoker HTN Falls Hypothyroidism Parkinson's disease Carotid stenosis HLP CVA ischemic type remotely in the past without residual Plan: IRF protocol Monitor closely Monitor BP Fall risk 09/12/20: DILLON management No issues otherwise 09/13/20: Monitor oxygen level Supportive care (1) Hemorrhagic stroke Status: Acute (2) Parkinson disease (3) Falls (4) Carotid stenosis, bilateral (5) Oxygen dependent (6) Depression (7) Hypothyroidism (8) Hypertension (9) Former smoker (10) Diabetes (11) COPD (chronic obstructive pulmonary disease) Status: Acute JUN LOUIS DO September 13, 2020 09:45
--- NOTE | 2020-09-13 09:46 | Individualized Plan of Care ---
Individualized Plan of Care Rehab Nursing IPOC Order Admission Date September 11, 2020 at 11:35 Current Orders Orders Admission Order(Inpt,Obs,Sdc) (09/10/20 17:36) Vital Signs: Per Unit Policy ( ,16,00 (09/10/20 17:36) Reuben Parkinson (09/10/20 17:36) Sequential Compression Device .admit (09/10/20 17:36) Nuclear Radiologist-Inpt Rehab Con (09/10/20 17:36) Rehab Nursing Orders-Ipoc (09/10/20 17:36) Physical Therapy Rehab Orders (09/10/20 17:36) Occupational Therapy Rehab Ord (09/10/20 17:36) Speech Therapy Rehab Orders (09/10/20 17:36) Precautions (Aru) (09/10/20 17:36) Rehab-Intensity Of Therapy (09/10/20 17:36) Initiate Admission Nursing Pro .admission (09/10/20 17:36) Acetaminophen Tablet/Caplet (Tylenol T (09/10/20 17:45) Alprazolam Tablet (Xanax Tablet) (09/10/20 17:45) Calcium Carbonate Chew Tablet (Antacid C (09/10/20 17:45) Diphenhydramine Tablet (Benadryl Tablet) (09/10/20 17:45) Docusate Sodium Capsule (Colace Capsule) (09/10/20 21:00) Docusate Sodium Capsule (Colace Capsule) (09/10/20 17:45) Bisacodyl Suppository (Dulcolax Supposit (09/10/20 17:45) Lactulose Oral Solution (Enulose Oral So (09/10/20 17:45) Na Phos/Na Biphos Enema (Fleet Enema Kev (09/10/20 17:45) Guaifenesin/Codeine Syrup (Robitussin Ac (09/10/20 17:45) Loperamide Tablet (Imodium Tablet) (09/10/20 17:45) Melatonin Tablet (Melatonin Tablet) (09/10/20 17:45) Polyethylene Glycol Powder Pkt (Miralax (09/10/20 21:00) Ondansetron Oral Dissolve Tab (Zofran (09/10/20 17:45) Senna S Tablet (Senokot S Tablet) (09/10/20 21:00) Code/Resuscitation (09/10/20 17:36) Initiate Admission Nursing Pro .admission (09/10/20 17:36) Vte Contraindication (09/10/20 17:36) Cbc With Automated Diff (09/12/20 06:00) Comprehensive Metabolic Panel (09/12/20 06:00) Admission Arrival Bed Request (09/11/20 11:38) Nursing Communication (Order) (09/11/20 12:01) Atorvastatin Tablet (Lipitor Tablet) (09/11/20 21:00) Carbidopa/Levodopa Cr Tablet (Sinemet Cr (09/11/20 13:00) Hydralazine Tablet (Apresoline Tablet) (09/11/20 12:15) Levetiracetam Tablet (Keppra Tablet) (09/11/20 21:00) Montelukast Tablet (Singulair Tablet) (09/11/20 21:00) Sertraline Tablet (Zoloft Tablet) (09/11/20 21:00) Loratadine Tablet (Claritin Tablet) (09/12/20 09:00) Cholecalciferol Capsule/Tablet (Vitamin (09/12/20 09:00) Levothyroxine Tablet (Synthroid Tablet) (09/12/20 09:00) Fluticasone/Salmeterol 232-14 (Airduo Re (09/11/20 21:00) Famotidine Tablet (Pepcid Tablet) (09/12/20 09:00) Ropinirole Tablet (Requip Tablet) (09/11/20 21:00) General/Regular (09/11/20 Lunch) Levalbuterol (Non-Formulary) (Xopenex (N (09/11/20 12:15) Ct Head Wo (09/24/20 ) Patient Visit (09/11/20 ) Pt Eval Low Complexity (09/11/20 ) Patient May Use Own Meds, All (Patient M (09/11/20 16:30) Carbidopa/Levodopa Cr Tablet (Sinemet Cr (09/11/20 21:00) Patient Visit (09/13/20 ) Speech Sound Lang Comp (09/13/20 ) Rehab Nursing Orders: Ongoing Assess. of Cognitive Status, Ongoing Assess. of Function Status, Bladder Management, Bladder Scan, Bladder Training, Bowel Management, Bowel Training, Disease Management & Educaiton, DVT Prophylaxis, Fall Prevention, Fluid/Electrolyte/Nutrition Mgmt, Infection Prevention, Medication Management & Education, Management of Risks & Complications, Nutrition Management, Pain Management, Patient/Family Support, Safety Management, Swallow Precautions Intensity of Therapy to be met Patient to be seen: Min.3h per day/5 of 7d PT IPOC Problem List: Activity Tolerance, Functional Strength, Safety, Balance, Gait, Transfer, Bed Mobility Treatment Plan: Continue Plan of Care Bed Mobility, Education, Functional Activity Yolanda, Functional Strength, Group Therapy, Gait, Safety, Therapeutic Exercise, Transfers Treatment Duration: October 02, 2020 Frequency: At least 5 of 7 days/Wk (IRF) Estimated Hrs Per Day: 1.5 hours per day OT IPOC Problems: Decreased Activ Tolerance, Decreased Safety Aware, Decreased UE Strength, Impaired I ADL's, Impaired Self-Care Skills OT Treatment, Training and Edu: Yes Plan of Care: ADL Retraining, Functional Mobility, Group Exercise/Act as Ind, UE Funct Exercise/Act Treatment Duration: September 13, 2020 Frequency: At least 5 of 7 days/Wk (IRF) Estimated Hrs Per Day: 1.[address] IPOC Speech Therapy Treatment Plan: Modify Plan, See Comments Treatment Duration: September 13, 2020 Frequency: 3 times per week Estimated Hrs Per Day: 1 hour per day Nuclear Radiologist/Case Mgmt Nuclear Radiologist/Case Managemen: Discharge Planning Dietitian/Sap Developer Dietitian/Sap Developer to monitor nutritional status and make changes and/or recommendations as needed and work with speech pathology on dietary upgrades as the occur. Physician IPOC Medical Issues being managed closely and that require the 24 hour availability of a physician: Patient had a recent hemorrhagic stroke and will need close monitoring for labile blood pressure and decompensation and recurrent stroke Medical Issues: Bowel/Bladder Function, DVT Prophylaxis, Falls Precautions, Fluid/Electrolyte/Nutrition Balance, Infection Protection, Pain Management, Swallowing Precautions Brief Synthesis of Preadmission Screen, Post-Admission Evaluation, and Therapy Evaluations: PT and OT will focus on increase ambulation and increase independence in ADLs and speech therapy will work on cognition and peripheral vision and communication since hemorrhagic stroke Medical Prognosis: Good Anticipated Length of Stay: 7 days JUN LOUIS DO September 13, 2020 09:46
[2020-09-13] MEDS: FAMOTIDINE 20 MG (PEPCID) TABLET PO SCH (10:15)
[2020-09-13] MEDS: LORATADINE (CLARITIN) 10 MG TAB PO SCH (10:15)
[2020-09-13] MEDS: LEVOTHYROXINE 75 MCG (LEVOTHROID) TABLET PO SCH (10:15)
[2020-09-13] MEDS: VITAMIN D3 25 MCG (1,000 UNITS) TABLET PO SCH (10:15)
[2020-09-13] MEDS: SINEMET CR 50/200 (CARBIDOPA/LEVODOPA SA) TAB PO SCH ×3 (10:21→20:59)
[2020-09-13] MEDS: DOCUSATE SODIUM 100 MG (COLACE) CAP PO SCH ×2 (10:36→21:04)
[2020-09-13] MEDS: SENNA W/DOCUSATE (SENOKOT S) TABLET PO SCH ×2 (10:37→21:05)
[2020-09-13] MEDS: polyethylene glycoL POWDER 17 GM (MIRALAX) PACK PO SCH ×2 (10:37→21:04)
--- NOTE | 2020-09-13 12:11 | Physical Therapy Daily Note ---
PT Daily Note-Current Subjective Pt. agrees to Rx. Pt. found up out of chair at foot of bed with bag from closet. Pt. had gotten up indep without assist Pain Location: No Pain Reported Mental Status Patient Orientation: Confused, Place, Time Attachments: Oxygen Transfers SCALE: Activities may be completed with or without assistive devices. 0-Bbdkwcwkwv-ibiegeb completes the activity by him/herself with no assistance from a helper. 5-Set-up or Clean-up Assistance-helper sets up or cleans up; patient completes activity. [place] assists only prior to or following the activity. 4-Supervision or Touching Assistance-helper provides verbal cues and/or touching/steadying and/or contact guard assistance as patient completes activity. Assistance may be provided throughout the activity or intermittently. 3-Partial/Moderate Assistance-helper does LESS THAN HALF the effort. [place] lifts, holds or supports trunk or limbs, but provides less than half the effort. 2-Substantial/Maximal Assistance-helper does MORE THAN HALF the effort. [place] lifts or holds trunk or limbs and provides more than half the effort. 3-Lgselgbfg-zludvy does ALL the effort. Patient does none of the effort to complete the activity. Or, the assistance of 2 or more helpers is required for the patient to complete the activity. If activity was not attempted, code reason: 7-Patient Refused. 9-Not Applicable-not attempted and the patient did not perform the activity before the current illness, exacerbation or injury. 10-Not Attempted due to Environmental Limitations-(lack of equipment, weather restraints, etc.). 88-Not Attempted due to Medical Conditions or Safety Concerns. Roll Left & Right (QC): 6 Sit to Lying (QC): 6 Lying to Sitting/Side of Bed(Q: 6 Sit to Stand (QC): 6 Chair/Xyf-cs-Kbdnj Xfer(QC): 6 Toilet Transfer (QC): 6 Car Transfer (QC): 6 Weight Bearing Right Lower Extremity: Right Full Weight Bearing Left Lower Extremity: Left Full Weight Bearing Gait Training Does the Patient Walk?: Yes Walk 10 feet (QC): 5 Walk 50 ft with 2 Turns(QC): 5 Walk 150 ft (QC): 5 Gait Persons Needed: 1 Gait Assistive Device: FWW (and none) with FWW 150 ft SBA, without asst device after CALI 150ft SBA, no LOB but pt. was min SOB Stair Training Stair Training: Handrails/: 2 handrails #of Steps: 4 4 Steps (QC): 4 Stairs: Pattern: Reciprocal Exercises Supine Ex: Bridging, Ankle pumps, Quad Set, Rolling, Glut sets, Lower trunk rotation, Heel Slides, Short Arc Quads, Scooting, Straight leg raise, Hip abd/add Supine Reps: 15 NuStep Minutes: 12 NuStep Workload: 4 Treatments CALI scored 46/56 = cane out of doors. Assessment Current Status: Good Progress pts gait without device for short dist looks safe but pt. likely needs FWW as she gets somewhat SOB and needs it for energy conserv PT Short Term Goals Short Term Goals Time Frame: September 18, 2020 Roll Left & Right: 6 Sit to lyin Lying to sitting on side of be: 6 Sit to stand: 6 Chair/mcv-so-hxpek transfer: 6 PT Jail Goals Financial Aid Goals PT Jail Goals Time Frame: October 02, 2020 Roll Left & Right (QC): 6 Sit to Lying (QC): 6 Lying-Sitting on Side/Bed(QC): 6 Sit to Stand (QC): 6 Chair/Sld-so-Ynejd Xfer(QC): 6 Toilet Transfer (QC): 6 Car Transfer (QC): 6 Does the Patient Walk: Yes Walk 10 feet (QC): 6 Walk 50ft with 2 Turns (QC): 6 Walk 150 ft (QC): 6 Walking 10ft on Uneven Surface: 6 1 Step (curb) (QC): 6 4 Steps (QC): 6 12 Steps (QC): 6 Picking up an Object (QC): 6 Does the Pt use WC or Scooter?: No Wheel 50 feet with 2 turns (QC: 9 Type: N/A Wheel 150 feet: 9 Type: N/A PT Plan Treatment/Plan Treatment Plan: Continue Plan of Care Treatment Plan: Bed Mobility, Education, Functional Activity Yolanda, Functional Strength, Group Therapy, Gait, Safety, Therapeutic Exercise, Transfers Treatment Duration: October 02, 2020 Frequency: At least 5 of 7 days/Wk (IRF) Estimated Hrs Per Day: 1.5 hours per day Patient and/or Family Agrees t: Yes Safety Risks/Education Patient Education: Gait Training, Transfer Techniques, Steps, Correct Positioning, Disease Process, Safety Issues Teaching Recipient: Patient Teaching Methods: Demonstration, Discussion Response to Teaching: Verbalize Understanding, Return Demonstration, Reinforcement Needed Time/GCodes Time In: 1100 Time Out: 1215 Total Billed Treatment Time: 75 Total Billed Treatment 1,NM30m,GT20m,EX25m LIDA SARAVIA BEEF CATTLE SPECIALIST September 13, 2020 12:11
--- NOTE | 2020-09-13 16:10 | Diagnostic Imaging Report ---
PROCEDURE: US carotid duplex, bilateral. INDICATION: Recent hemorrhagic infarct. History of right ICA occlusion. TECHNIQUE: Multiple real-time grayscale images were obtained over the carotid arteries in various projections bilaterally. Additional spectral analysis and color Doppler and Duplex images were also obtained. CORRELATION: 01/16/2018 FINDINGS: Right carotid circulation: There is no detectable flow within the right internal carotid artery which remains occluded. Atherosclerotic plaquing at the carotid bifurcation. There is what appears to be low resistive flow within the external carotid artery likely compensatory. Left carotid circulation: The left common carotid artery is fairly tortuous in its course. There is rather extensive atherosclerotic calcification particularly at the carotid bifurcation as well as internal and external carotid arteries. Maximum velocity at the mid aspect is 190 cm/s. IC CC ratio measures 2.7. Findings would suggest an approximately 50-69% stenosis. External carotid artery is patent. No hemodynamically significant stenosis is present. Antegrade flow in the bilateral vertebral arteries. DOPPLER (peak systolic velocity M/S Right Left CCA .53 .71 ICA Proximal NA 1.8 ICA Mid NA 1.9 ICA Distal NA .83 RATIO NA 2.7 ECA 1.0 .76 VERT .73 .79 IMPRESSION: 1. Right internal carotid artery is again noted to be occluded. Likely development of low resistive flow within the external carotid artery. 2. Moderate atherosclerotic plaque in the left carotid arterial system. Findings are suggestive of currently 50-69% stenosis of the left internal carotid artery. This is changed from prior. Parameters based on the consensus panel Mcbride-Scale and Doppler ultrasound criteria published March 2003, Radiology, Volume 229. Dictated by: Dictated on workstation # [id number]
[2020-09-13 19:55] VITALS: BP 115/74
[2020-09-13] MEDS: MONTELUKAST 10 MG (SINGULAIR) TAB PO SCH (20:55)
[2020-09-13] MEDS: MELATONIN 3 MG TABLET PO PRN (20:56)
[2020-09-13] MEDS: SERTRALINE 100 MG (ZOLOFT) TAB PO SCH (20:56)
[2020-09-13] MEDS: rOPINIRole 0.25 MG (REQUIP) TAB PO SCH (20:56)
--- NOTE | 2020-09-14 05:02 | PM&R Progress Note ---
Subjective HPI/CC On Admission Date Seen by Provider: September 14, 2020 Time Seen by Provider: 09:00 Subjective/Events-last exam 09/14/20: Pt doing pretty well Bed alarm for impulsiveness Pt up to the bathroom this morning with help, but there is some vision loss making it a fall risk Bowels moved yesterday 09/13/20: Patient doing really well No major issues Bowels move 2 days ago Oxygen is 24/7 09/12/20: Patient doing well Has a DILLON and APAP given No other pain Peripheral vision loss noted PCP visited her today Checked meds and labs BP ok Review of Systems General: Fatigue, Malaise Pulmonary: Dyspnea Neurological: Weakness Objective Exam Vital Signs Vital Signs Date Time Temp Pulse Resp B/P (MAP) Pulse Ox O2 Delivery O2 Flow Rate FiO2 09/14/20 19:34 36.6 97 18 122/60 (80) 94 Nasal Cannula 2.00 Capillary Refill : General Appearance: No Apparent Distress, WD/WN, Chronically ill HEENT: PERRL/EOMI, Normal ENT Inspection, Pharynx Normal Neck: Full Range of Motion, Normal Inspection, Non Tender, Supple, Carotid Bruit Respiratory: Chest Non Tender, Lungs Clear, No Accessory Muscle Use, No Respiratory Distress, Decreased Breath Sounds Cardiovascular: Regular Rate, Rhythm, No Edema, No Gallop, No JVD, No Murmur, Normal Peripheral Pulses Gastrointestinal: Normal Bowel Sounds, No Organomegaly, No Pulsatile Mass, Non Tender, Soft Rectal: Deferred Back: Normal Inspection, No CVA Tenderness, No Vertebral Tenderness Extremity: Normal Capillary Refill, Normal Inspection, Normal Range of Motion, Non Tender, No Calf Tenderness, No Pedal Edema Neurologic/Psychiatric: Alert, Oriented x3, No Motor/Sensory Deficits, Normal Mood/Affect, saxophone teacher II-XII Norm as Tested, Abnormal Gait, Facial Droop (left), Motor Weakness (lower extremities bilateral 4/5) Skin: Normal Color, Warm/Dry Lymphatic: No Adenopathy Results/Procedures Lab Patient resulted labs reviewed. FIM Transfers Therapy Code Descriptions/Definitions Functional [place] Measure: 0=Not Assessed/NA 4=Minimal Assistance 1=Total Assistance 5=Supervision or Setup 2=Maximal Assistance 6=Modified [place] 3=Moderate Assistance 7=Complete IndependenceSCALE: Activities may be completed with or without assistive devices. 3-Otrwnbckso-kykhrbq completes the activity by him/herself with no assistance from a helper. 5-Set-up or Clean-up Assistance-helper sets up or cleans up; patient completes activity. [place] assists only prior to or following the activity. 4-Supervision or Touching Assistance-helper provides verbal cues and/or touching/steadying and/or contact guard assistance as patient completes activity. Assistance may be provided throughout the activity or intermittently. 3-Partial/Moderate Assistance-helper does LESS THAN HALF the effort. [place] lifts, holds or supports trunk or limbs, but provides less than half the effort. 2-Substantial/Maximal Assistance-helper does MORE THAN HALF the effort. [place] lifts or holds trunk or limbs and provides more than half the effort. 6-Mpnbnakdv-dnpcxn does ALL the effort. Patient does none of the effort to complete the activity. Or, the assistance of 2 or more helpers is required for the patient to complete the activity. If activity was not attempted, code reason: 7-Patient Refused. 9-Not Applicable-not attempted and the patient did not perform the activity before the current illness, exacerbation or injury. 10-Not Attempted due to Environmental Limitations-(lack of equipment, weather restraints, etc.). 88-Not Attempted due to Medical Conditions or Safety Concerns. Roll Left to Right (QC): 6 Sit to Lying (QC): 6 Sit to Stand (QC): 6 Chair/Ugn-fv-Iyebf Xfer(QC): 6 Car Transfer (QC): 6 Gait Training Does the Patient Walk?: Yes Walk 10 feet (QC): 5 Walk 50 ft with 2 Turns(QC): 5 Walk 150 ft (QC): 5 Walking 10ft/uneven surface-QC: 4 Gait Persons Needed: 1 Gait Assistive Device: FWW (and none) Wheelchair Training Does the Pt Use a Wheelchair?: No Wheel 50 ft with 2 turns (QC): 9 Wheel 150 ft (QC): 9 Type of Wheelchair: N/A Stair Training Stair Training: Handrails/: 2 handrails #of Steps: 4 1 Step (curb) (QC): 4 4 Steps (QC): 4 12 Steps (QC): 88 Stairs: Pattern: Reciprocal Balance Picking up an Object (QC): 4 ADL-Treatment Eating (QC): 6 (IND with breakfast, able to cut food, use utensils, and open containers.) Oral Hygiene (QC): 4 (SBA standing at sink) Shower/Bathe Self (QC): 4 (CGA in stand, pt required cues for safety with instruction to sit down throughout shower. ) Upper Body Dressing (QC): 4 (cues with O2 management) Lower Body Dressing (QC): 3 (Min A with fasteners. 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 COPD with 24/7 O2 dependence Former smoker HTN Falls Hypothyroidism Parkinson's disease Carotid stenosis HLP CVA ischemic type remotely in the past without residual Plan: IRF protocol Monitor closely Monitor BP Fall risk 09/12/20: DILLON management No issues otherwise 09/13/20: Monitor oxygen level Supportive care 09/14/20: Monitor closely O2 maintained IRF therapies (1) Hemorrhagic stroke Status: Acute (2) Parkinson disease (3) Falls (4) Carotid stenosis, bilateral (5) Oxygen dependent (6) Depression (7) Hypothyroidism (8) Hypertension (9) Former smoker (10) Diabetes (11) COPD (chronic obstructive pulmonary disease) Status: Acute JUN LOUIS DO September 14, 2020 05:02
[2020-09-14] MEDS: RT--FLUTICASONE/SALMETEROL 232-14 (AIRDUO RespiCLICK) IH SCH ×2 (07:15→20:44)
[2020-09-14 08:00] VITALS: BP 128/63
--- NOTE | 2020-09-14 09:04 | Occupational Ther Daily Note ---
OT Current Status-Daily Note Subjective Pt in bed, agreeable to OT Tx. Mental Status/Objective Attachments: Oxygen ADL-Treatment Therapy Code Descriptions/Definitions Functional [place] Measure: 0=Not Assessed/NA 4=Minimal Assistance 1=Total Assistance 5=Supervision or Setup 2=Maximal Assistance 6=Modified [place] 3=Moderate Assistance 7=Complete IndependenceSCALE: Activities may be completed with or without assistive devices. 9-Nimuccpxsh-cwljemd completes the activity by him/herself with no assistance from a helper. 5-Set-up or Clean-up Assistance-helper sets up or cleans up; patient completes activity. [place] assists only prior to or following the activity. 4-Supervision or Touching Assistance-helper provides verbal cues and/or touching/steadying and/or contact guard assistance as patient completes activity. Assistance may be provided throughout the activity or intermittently. 3-Partial/Moderate Assistance-helper does LESS THAN HALF the effort. [place] lifts, holds or supports trunk or limbs, but provides less than half the effort. 2-Substantial/Maximal Assistance-helper does MORE THAN HALF the effort. [place] lifts or holds trunk or limbs and provides more than half the effort. 6-Tuutvrjdw-wswpwr does ALL the effort. Patient does none of the effort to complete the activity. Or, the assistance of 2 or more helpers is required for the patient to complete the activity. If activity was not attempted, code reason: 7-Patient Refused. 9-Not Applicable-not attempted and the patient did not perform the activity before the current illness, exacerbation or injury. 10-Not Attempted due to Environmental Limitations-(lack of equipment, weather restraints, etc.). 88-Not Attempted due to Medical Conditions or Safety Concerns. Eating (QC): 5 (set up, assist opening milk carton) Shower/Bathe Self (QC): 4 (SBA, min cues for sequencing.) Upper Body Dressing (QC): 4 (Cues with sequencing of O2 tubing. Pt able to don/doff night gown/sheeting puller shirt.) Lower Body Dressing (QC): 4 (SBA) On/Off Footwear: 3 (Min A with L gripper sock) Toileting Hygiene (QC): 4 (SBA) Toilet Transfer (QC): 4 (SBA) Increased time with all ADLs due to frequent rest breaks, moderate verbal cues for sequencing throughout tx. Other Treatment Pt seated EOB, nurse present. Pt gathered clothing from closet, SBA using FWW. Pt gathered pants and underwear but required cue to get a shirt. Pt then ambulated into bathroom and onto toilet. Pt doffed socks, then with SBA ambulated towards shower. Pt turned shower on, then attempted to doff bra prior to doffing nightgown. Pt indicates she is unable to take her bra off, after cue to take off gown first, pt able to doff bra. Pt then transferred into shower, OT cued pt to watch O2 tubing and her night gown, but unable to fix. OT assisted pt with unthreading O2 tubing from nightgown. Pt turned the water on herself, still has glasses/watch/underwear on, requiring step by step verbal cues to fix. Pt then completed shower with SBA. Pt dried off, donned bra, then stood at sink for deodorant. Pt sat on toilet to don underwear. SBA without AD ambulated towards room without warning to get water. Pt sat EOB for several minutes, then transferred supine. OT cued pt to continue with tx and finish dressing. SBA without AD back to bathroom, cues to watch O2 tubing as pt was stepping over and walking with tubing between her feet. Pt transferred onto toilet to complete dressing. Pt stood at sink to comb her hair, then used FWW with SBA to therapy gym. In order to increase BUE Strength and activity tolerance, pt completed arm bike, x15 mins, 2 rest breaks as needed. Pt returned to room, transferring to recliner. Post tx, pt seated in recliner, call light in reach and all needs met, chair alarm on. Education OT Patient Education: Correct positioning, Modified ADL techniques, Progress toward Goal/Update tx plan, Purpose of tx/functional activities Teaching Recipient: Patient Teaching Methods: Discussion Response to Teaching: Verbalize Understanding OT Short Term Goals Short Term Goals Time Frame: September 24, 2020 Shower/bathe self: 5 Upper body dressin Lower body dressin Putting on/taking off footwear: 5 OT Personnel Clerks Supervisor Goals Snf Goals Time Frame: Oct 08, 2020 Eating (QC): 6 Oral Hygiene (QC): 6 Toileting Hygiene (QC): 6 Shower/Bathe Self (QC): 6 Upper Body Dressing (QC): 6 Lower Body Dressing (QC): 6 On/Off Footwear (QC): 6 Additional Goals: 1-Demonstrate ADL Tasks, 2-Verbalize Understanding, 3- ImproveStrength/Yolanda 1=Demonstrate adherence to instructed precautions during ADL tasks. 2=Patient will verbalize/demonstrate understanding of assistive devices/modifications for ADL. 3=Patient will improve strength/tolerance for activity to enable patient to perform ADL's. OT Education/Plan Problem List/Assessment Assessment: Decreased Activ Tolerance, Decreased Safety Aware, Decreased UE Strength, Impaired Funct Balance, Impaired I ADL's, Impaired Self-Care Skills Discharge Recommendations Plan/Recommendations: Continue POC Treatment Plan/Plan of Care Patient would benefit from OT for education, treatment and training to promote independence in ADL's, mobility, safety and/or upper extremity function for ADL's. Plan of Care: ADL Retraining, Functional Mobility, Group Exercise/Act as Ind, UE Funct Exercise/Act Treatment Duration: September 13, 2020 Frequency: At least 5 of 7 days/Wk (IRF) Estimated Hrs Per Day: 1.5 hours per day Agreement: Yes Rehab Potential: Good Time/GCodes Start Time: 08:00 Stop Time: 09:30 Total Time Billed (hr/min): 90 Billed Treatment Time 1, ADL 5 (70'), EX (20') ANYA CARBALLO OT September 14, 2020 09:04
[2020-09-14] MEDS: VITAMIN D3 25 MCG (1,000 UNITS) TABLET PO SCH (10:15)
[2020-09-14] MEDS: LORATADINE (CLARITIN) 10 MG TAB PO SCH (10:15)
[2020-09-14] MEDS: DOCUSATE SODIUM 100 MG (COLACE) CAP PO SCH ×3 (10:16→21:27)
[2020-09-14] MEDS: FAMOTIDINE 20 MG (PEPCID) TABLET PO SCH (10:16)
[2020-09-14] MEDS: SENNA W/DOCUSATE (SENOKOT S) TABLET PO SCH ×3 (10:16→21:27)
[2020-09-14] MEDS: LEVOTHYROXINE 75 MCG (LEVOTHROID) TABLET PO SCH (10:16)
[2020-09-14] MEDS: SINEMET CR 50/200 (CARBIDOPA/LEVODOPA SA) TAB PO SCH ×3 (10:17→21:29)
[2020-09-14] MEDS: polyethylene glycoL POWDER 17 GM (MIRALAX) PACK PO SCH ×2 (10:41→21:29)
--- NOTE | 2020-09-14 11:10 | Speech Therapy Daily Note ---
Speech Daily Progress Note Subjective Date Seen by Provider: September 14, 2020 Time Seen by Provider: 00:15 Pt was alert and pleasant. Pt agreed to ST services. Pt reported some fatigue from therapy services. Objective Patient completed sequencing tasks related to daily living at 80% or greater with moderate cues. Pt required moderate cues to continue sequencing. Assessment Assessment Current Status: Fair Progress Treatment Plan Continue Plan of Care Speech Short Term Goals Short Term Goals Short Term Goals 1) Patient will complete sequencing tasks related to daily living at 80% or greater with minimal cues. 2) Patient will complete simple multiple step following directions tasks related to daily living at 80% or greater with minimal cues. Speech Group Home Goals Locator Specialist Goals Patient will improve independence of daily living tasks with minimal assistance. Speech-Plan Patient/Family Goals Patient/Family Goals: Pt plans to return home where she lives alone. Her daughter will assist in taking care of her as needed. Treatment Plan Speech Therapy Treatment Plan: Continue Plan of Care Treatment Duration: September 24, 2020 Frequency: 4 times per week (Patient will receive skilled ST 4-5x per week) Estimated Hrs Per Day: .5 hour per day Rehab Potential: Good Barriers to Learning: Medical status and age. Pt/Family Agrees to Plan: Yes Safety Risks/Education Teaching Recipient: Patient Teaching Methods: Demonstration, Discussion Response to Teaching: Verbalize Understanding, Return Demonstration Education Topics Provided: Safety awareness and compensatory memory strategies Time Speech Therapy Time In: 13:45 Speech Therapy Time Out: 14:00 Total Billed Time: 15 Billed Treatment Time 1WANDA BETHANIA ST September 14, 2020 11:10
--- NOTE | 2020-09-14 11:22 | Physical Therapy Daily Note ---
PT Daily Note-Current Subjective Pt standing at closet with Nursing present upon arrival. Pt agrees to PT. Pt is not using FWW and has O2 wrapped around them. Pain Location: No Pain Reported Mental Status Patient Orientation: Person, Place Attachments: Oxygen (1L) Transfers SCALE: Activities may be completed with or without assistive devices. 7-Vqmkcznavw-tumgpnl completes the activity by him/herself with no assistance from a helper. 5-Set-up or Clean-up Assistance-helper sets up or cleans up; patient completes activity. [place] assists only prior to or following the activity. 4-Supervision or Touching Assistance-helper provides verbal cues and/or touching/steadying and/or contact guard assistance as patient completes activity. Assistance may be provided throughout the activity or intermittently. 3-Partial/Moderate Assistance-helper does LESS THAN HALF the effort. [place] lifts, holds or supports trunk or limbs, but provides less than half the effort. 2-Substantial/Maximal Assistance-helper does MORE THAN HALF the effort. [place] lifts or holds trunk or limbs and provides more than half the effort. 9-Aflzqlere-sbqvxj does ALL the effort. Patient does none of the effort to complete the activity. Or, the assistance of 2 or more helpers is required for the patient to complete the activity. If activity was not attempted, code reason: 7-Patient Refused. 9-Not Applicable-not attempted and the patient did not perform the activity before the current illness, exacerbation or injury. 10-Not Attempted due to Environmental Limitations-(lack of equipment, weather restraints, etc.). 88-Not Attempted due to Medical Conditions or Safety Concerns. Sit to Stand (QC): 6 Toilet Transfer (QC): 6 Weight Bearing Right Lower Extremity: Right Full Weight Bearing Left Lower Extremity: Left Full Weight Bearing Gait Training Does the Patient Walk?: Yes Distance: 150' x2 Walk 10 feet (QC): 6 Walk 50 ft with 2 Turns(QC): 6 Walk 150 ft (QC): 6 Gait Persons Needed: 1 Gait Assistive Device: FWW Pt amb. Mod I but with safety concerns. Pt does not pay attention to where O2 line is and often has it wrapped around herself if not with staff. VC to use FWW and manage O2 line. Wheelchair Training Does the Pt Use a Wheelchair?: No Exercises NuStep Minutes: 12 NuStep Workload: 5 Treatments Standing at closet with Nursing upon arrival. Pt amb. to BR. After finishing, pt completes pericare as well as washes hands. Pt finishes blow drying & hairspraying hair. Pt amb. in hallway then uses NuStep. Pt asks to return to room to rest. Amb. back and rests in recliner. All needs met, call light in hand. Assessment Current Status: Fair Progress Pt can independently complete tasks although not always safety aware. PT Short Term Goals Short Term Goals Time Frame: September 18, 2020 Roll Left & Right: 6 Sit to lyin Lying to sitting on side of be: 6 Sit to stand: 6 Chair/pnq-wb-psoml transfer: 6 PT Service Desk Associate Goals Service Desk Associate Goals PT Service Desk Associate Goals Time Frame: October 02, 2020 Roll Left & Right (QC): 6 Sit to Lying (QC): 6 Lying-Sitting on Side/Bed(QC): 6 Sit to Stand (QC): 6 Chair/Giw-zy-Gazkq Xfer(QC): 6 Toilet Transfer (QC): 6 Car Transfer (QC): 6 Does the Patient Walk: Yes Walk 10 feet (QC): 6 Walk 50ft with 2 Turns (QC): 6 Walk 150 ft (QC): 6 Walking 10ft on Uneven Surface: 6 1 Step (curb) (QC): 6 4 Steps (QC): 6 12 Steps (QC): 6 Picking up an Object (QC): 6 Does the Pt use WC or Scooter?: No Wheel 50 feet with 2 turns (QC: 9 Type: N/A Wheel 150 feet: 9 Type: N/A PT Plan Problem List Problem List: Safety Treatment/Plan Treatment Plan: Continue Plan of Care Treatment Plan: Bed Mobility, Education, Functional Activity Yolanda, Functional Strength, Group Therapy, Gait, Safety, Therapeutic Exercise, Transfers Treatment Duration: October 02, 2020 Frequency: At least 5 of 7 days/Wk (IRF) Estimated Hrs Per Day: 1.5 hours per day Patient and/or Family Agrees t: Yes Safety Risks/Education Patient Education: Safety Issues Teaching Recipient: Patient Teaching Methods: Discussion Response to Teaching: Reinforcement Needed Time/GCodes Time In: 1015 Time Out: 1115 Total Billed Treatment Time: 60 Total Billed Treatment 1, FA x2 (25m), GT (20m) & EX (15m) TAMRA LION HIGH ENERGY FORMING EQUIPMENT OPERATOR September 14, 2020 11:21
--- NOTE | 2020-09-14 13:00 | Progress Note ---
Subjective Date Seen by a Provider: September 14, 2020 Time Seen by a Provider: 12:56 Subjective/Events-last exam Acute Right Sided Hemorrhagic Stoke, HTN, COPD, Hypothyroidism, Cephalgia. Ongoing low grad DILLON at level 1-2. Daughter and nursing concerned about impulse control. Objective Exam Vital Signs Date Time Temp Pulse Resp B/P (MAP) Pulse Ox O2 Delivery O2 Flow Rate FiO2 09/14/20 08:00 36.8 92 20 128/63 (84) 97 Nasal Cannula 2.00 09/14/20 07:15 95 Nasal Cannula 2.00 09/13/20 21:00 Nasal Cannula 2.00 09/13/20 19:55 36.8 89 18 115/74 (88) 96 09/13/20 18:23 93 Nasal Cannula 1.00 Capillary Refill : General Appearance: No Apparent Distress Neck: Supple Respiratory: Lungs Clear, Decreased Breath Sounds Cardiovascular: Regular Rate, Rhythm Extremity: Non Tender, No Calf Tenderness, No Pedal Edema Neurologic/Psychiatric: Alert, Oriented x3 Assessment/Plan Assessment/Plan Assess & Plan/Chief Complaint 1. Acute Right Sided Hemorrhagic Stoke--plan is to repeat scan 2 weeks from discharge from [facility] and restart aspirin if improved/resolved, continue PT/OT/ST 2. HTN--stable 3. COPD--stable 4. Depression with impulse control--increased sertraline dose Clinical Quality Measures Admission Status Admission Dx 1. Acute Right Sided Hemorrhagic Stoke with ongoing cephalgia, possible peripheral vision loss and some impulsivity per nursing--PT/OT and ST 2. Hypertension--stable 3. COPD--oxygen dependant 4. Hypothyroidism--stable, back on home dose 5. Previous Ischemic CVA with encephalomalacia present DVT/VTE Risk/Contraindication: Contraindications-Pharm: Other *list below* Other: hemorrhagic cva AMEYA PEREZ DO September 14, 2020 13:00
[2020-09-14 19:34] VITALS: BP 122/60
[2020-09-14] MEDS: SERTRALINE 100 MG (ZOLOFT) TAB PO SCH (21:27)
[2020-09-14] MEDS: MONTELUKAST 10 MG (SINGULAIR) TAB PO SCH (21:27)
[2020-09-14] MEDS: MELATONIN 3 MG TABLET PO PRN (21:28)
[2020-09-14] MEDS: rOPINIRole 0.25 MG (REQUIP) TAB PO SCH (21:28)
--- NOTE | 2020-09-15 06:03 | PM&R Progress Note ---
Subjective HPI/CC On Admission Date Seen by Provider: September 15, 2020 Time Seen by Provider: 09:00 Subjective/Events-last exam 09/15/20: Patient doing well Impulsive Alarms on chair and bed Patient is DNR so that order placed BM+ 09/14/20: Pt doing pretty well Bed alarm for impulsiveness Pt up to the bathroom this morning with help, but there is some vision loss making it a fall risk Bowels moved yesterday 09/13/20: Patient doing really well No major issues Bowels move 2 days ago Oxygen is 24/7 09/12/20: Patient doing well Has a DILLON and APAP given No other pain Peripheral vision loss noted PCP visited her today Checked meds and labs BP ok Review of Systems General: Fatigue, Malaise Neurological: Weakness Objective Exam Vital Signs Vital Signs Date Time Temp Pulse Resp B/P (MAP) Pulse Ox O2 Delivery O2 Flow Rate FiO2 09/15/20 23:15 94 Nasal Cannula 1.00 09/15/20 20:00 36.9 87 18 110/51 (70) Capillary Refill : General Appearance: No Apparent Distress, WD/WN, Chronically ill HEENT: PERRL/EOMI, Normal ENT Inspection, Pharynx Normal Neck: Full Range of Motion, Normal Inspection, Non Tender, Supple, Carotid Bru it Respiratory: Chest Non Tender, Lungs Clear, No Accessory Muscle Use, No Respiratory Distress, Decreased Breath Sounds Cardiovascular: Regular Rate, Rhythm, No Edema, No Gallop, No JVD, No Murmur, Normal Peripheral Pulses Gastrointestinal: Normal Bowel Sounds, No Organomegaly, No Pulsatile Mass, Non Tender, Soft Rectal: Deferred Back: Normal Inspection, No CVA Tenderness, No Vertebral Tenderness Extremity: Normal Capillary Refill, Normal Inspection, Normal Range of Motion, Non Tender, No Calf Tenderness, No Pedal Edema Neurologic/Psychiatric: Alert, Oriented x3, No Motor/Sensory Deficits, Normal Mood/Affect, machine feed operator II-XII Norm as Tested, Abnormal Gait, Facial Droop (left), Motor Weakness (lower extremities bilateral 4/5) Skin: Normal Color, Warm/Dry Lymphatic: No Adenopathy Results/Procedures Lab Patient resulted labs reviewed. FIM Transfers Therapy Code Descriptions/Definitions Functional Umbarger Measure: 0=Not Assessed/NA 4=Minimal Assistance 1=Total Assistance 5=Supervision or Setup 2=Maximal Assistance 6=Modified Umbarger 3=Moderate Assistance 7=Complete IndependenceSCALE: Activities may be completed with or without assistive devices. 5-Isnvljdouh-vdxdszi completes the activity by him/herself with no assistance from a helper. 5-Set-up or Clean-up Assistance-helper sets up or cleans up; patient completes activity. [place] assists only prior to or following the activity. 4-Supervision or Touching Assistance-helper provides verbal cues and/or touching/steadying and/or contact guard assistance as patient completes activity. Assistance may be provided throughout the activity or intermittently. 3-Partial/Moderate Assistance-helper does LESS THAN HALF the effort. [place] lifts, holds or supports trunk or limbs, but provides less than half the effort. 2-Substantial/Maximal Assistance-helper does MORE THAN HALF the effort. [place] lifts or holds trunk or limbs and provides more than half the effort. 9-Bbzsrptbz-wgkyqq does ALL the effort. Patient does none of the effort to complete the activity. Or, the assistance of 2 or more helpers is required for the patient to complete the activity. If activity was not attempted, code reason: 7-Patient Refused. 9-Not Applicable-not attempted and the patient did not perform the activity before the current illness, exacerbation or injury. 10-Not Attempted due to Environmental Limitations-(lack of equipment, weather restraints, etc.). 88-Not Attempted due to Medical Conditions or Safety Concerns. Roll Left to Right (QC): 6 Sit to Lying (QC): 6 Sit to Stand (QC): 6 Chair/Icu-yx-Dcppy Xfer(QC): 6 Car Transfer (QC): 6 Gait Training Does the Patient Walk?: Yes Distance: 150' x2 Walk 10 feet (QC): 6 Walk 50 ft with 2 Turns(QC): 6 Walk 150 ft (QC): 6 Walking 10ft/uneven surface-QC: 4 Gait Persons Needed: 1 Gait Assistive Device: FWW Wheelchair Training Does the Pt Use a Wheelchair?: No Wheel 50 ft with 2 turns (QC): 9 Wheel 150 ft (QC): 9 Type of Wheelchair: N/A Stair Training Stair Training: Handrails/: 2 handrails #of Steps: 4 1 Step (curb) (QC): 4 4 Steps (QC): 4 12 Steps (QC): 88 Stairs: Pattern: Reciprocal Balance Picking up an Object (QC): 4 ADL-Treatment Eating (QC): 5 (set up, assist opening milk carton) Oral Hygiene (QC): 4 (SBA standing at sink) Shower/Bathe Self (QC): 4 (SBA, min cues for sequencing.) Upper Body Dressing (QC): 4 (Cues with sequencing of O2 tubing. Pt able to don/doff night gown/assembler for puller over hand shirt.) Lower Body Dressing (QC): 4 (SBA) On/Off Footwear (QC): 3 (Min A with L gripper sock) Toileting Hygiene (QC): 4 (SBA) Toilet Transfer (QC): 4 (SBA) Assessment/Plan Assessment and Plan Assess & Plan/Chief Complaint Assessment: 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 COPD with 24/7 O2 dependence Former smoker HTN Falls Hypothyroidism Parkinson's disease Carotid stenosis HLP CVA ischemic type remotely in the past without residual Plan: IRF protocol Monitor closely Monitor BP Fall risk 09/12/20: DILLON management No issues otherwise 09/13/20: Monitor oxygen level Supportive care 09/14/20: Monitor closely O2 maintained IRF therapies 09/15/20: Monitor for falls Impulsiveness noted (1) Hemorrhagic stroke Status: Acute (2) Parkinson disease (3) Falls (4) Carotid stenosis, bilateral (5) Oxygen dependent (6) Depression (7) Hypothyroidism (8) Hypertension (9) Former smoker (10) Diabetes (11) COPD (chronic obstructive pulmonary disease) Status: Acute JUN LOUIS DO September 15, 2020 06:03
[2020-09-15] MEDS: RT--FLUTICASONE/SALMETEROL 232-14 (AIRDUO RespiCLICK) IH SCH ×2 (06:32→22:59)
[2020-09-15 08:47] VITALS: BP 130/60
[2020-09-15] MEDS: LORATADINE (CLARITIN) 10 MG TAB PO SCH (08:49)
[2020-09-15] MEDS: FAMOTIDINE 20 MG (PEPCID) TABLET PO SCH (08:49)
[2020-09-15] MEDS: VITAMIN D3 25 MCG (1,000 UNITS) TABLET PO SCH (08:49)
[2020-09-15] MEDS: LEVOTHYROXINE 75 MCG (LEVOTHROID) TABLET PO SCH (08:49)
[2020-09-15] MEDS: SENNA W/DOCUSATE (SENOKOT S) TABLET PO SCH ×2 (08:49→20:31)
[2020-09-15] MEDS: DOCUSATE SODIUM 100 MG (COLACE) CAP PO SCH ×2 (08:49→20:31)
--- NOTE | 2020-09-15 08:49 | Cardiology Progress Note ---
Subjective Date Seen by Provider: September 15, 2020 Time Seen by Provider: 08:47 Subjective/Events-last exam Patient is sitting up in chair, complains of dull headache. Denies any chest pain or dyspnea. Review of Systems General: No Chills, No Night Sweats; Fatigue; No Malaise, No Appetite, No Other HEENT: No Head Aches, No Visual Changes, No Eye Pain, No Ear Pain, No Dysphasia, No Sinus Congestion, No Post Nasal Drip, No Sore Throat, No Other Pulmonary: No Dyspnea, No Cough, No Pleuritic Chest Pain, No Other Cardiovascular: No: Chest Pain, Palpitations, Orthopnea, Paroxysmal Noc. Dyspnea, Edema, Lt Headedness, Other Objective-Cardiology Exam Last Set of Vital Signs Vital Signs 09/15/20 09/15/20 08:47 09:00 Temp 36.6 Pulse 80 Resp 18 B/P (MAP) 130/60 (83) Pulse Ox 93 O2 Delivery Nasal Cannula O2 Flow Rate 2.00 Capillary Refill : General: Alert, Oriented X3, Cooperative HEENT: Atraumatic, PERRLA Neck: Supple, No JVD, No Thyromegaly Lungs: Clear to Auscultation, Normal Air Movement Heart: Regular Rate, Normal S1, Normal S2, No Murmurs Abdomen: Normal Bowel Sounds, Soft, No Tenderness, No Hepatosplenomegaly, No Masses Extremities: No Edema Skin: No Rashes, No Significant Lesion Neuro: Normal Gait, Normal Speech Psych/Mental Status: Mental Status NL, Mood NL A/P-Cardiology Admission Diagnosis Hemorrhagic CVA Generalized debility/weakness COPD DM Assessment/Plan Hemorrhagic CVA, 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 Continues to c/o mild DILLON. Normal blood pressure, no history of hypertension, continue to monitor blood pressure Generalized debility/weakness, continue PT/OT COPD, oxygen dependent, management per medical services DM, management per medical services Obesity Extobaccoism Multiple risk factors for underlying CAD, consider further workup as outpatient. Patient was seen and evaluated with Shaylee, examination performed, management plan was discussed, agree with the current scribed note, I made few changes to the note using Italic font Patient was seen and evaluated, feeling better, still having headache Continue to monitor blood pressure, no changes are recommended Continue physical and occupational therapy Clinical Quality Measures DVT/VTE Risk/Contraindication: Contraindications-Pharm: Other *list below* Other: hemorrhagic cva SHAYLEE HEIN September 15, 2020 8:49 am YASMINE LEE MD September 15, 2020 12:56 pm
[2020-09-15] MEDS: SINEMET CR 50/200 (CARBIDOPA/LEVODOPA SA) TAB PO SCH ×3 (08:50→20:28)
--- NOTE | 2020-09-15 08:51 | Speech Therapy Daily Note ---
Speech Daily Progress Note Subjective Date Seen by Provider: September 15, 2020 Time Seen by Provider: 00:30 Pt was alert and pleasant. Pt agreed to ST services. Pt was talkative and participated in all activities. Objective Patient completed multiple step directions tasks at 90% with moderate cues. Assessment Assessment Current Status: Good Progress Treatment Plan Continue Plan of Care Speech Short Term Goals Short Term Goals Short Term Goals 1) Patient will complete sequencing tasks related to daily living at 80% or greater with minimal cues. 2) Patient will complete simple multiple step following directions tasks related to daily living at 80% or greater with minimal cues. Speech Pottery Decorator Goals Pottery Decorator Goals Patient will improve independence of daily living tasks with minimal assistance. Speech-Plan Patient/Family Goals Patient/Family Goals: Pt plans to return home upon D/C from ARU. Treatment Plan Speech Therapy Treatment Plan: Continue Plan of Care Treatment Duration: September 24, 2020 Frequency: 4 times per week (Patient will receive skilled ST 4-5x per week) Estimated Hrs Per Day: .5 hour per day Rehab Potential: Good Barriers to Learning: Medical status and age. Pt/Family Agrees to Plan: Yes Safety Risks/Education Teaching Recipient: Patient Teaching Methods: Demonstration, Discussion Response to Teaching: Verbalize Understanding, Return Demonstration, Reinforcement Needed Education Topics Provided: Safety awareness and compensatory memory strategies. Time Speech Therapy Time In: 09:00 Speech Therapy Time Out: 09:30 Total Billed Time: 30 Billed Treatment Time 1WANDA BETHANIA ST September 15, 2020 08:51
--- NOTE | 2020-09-15 09:01 | Occupational Ther Daily Note ---
OT Current Status-Daily Note Subjective Pt seated in recliner sleeping, breakfast tray in front of her. Agreeable to OT Tx. ADL-Treatment Therapy Code Descriptions/Definitions Functional [place] Measure: 0=Not Assessed/NA 4=Minimal Assistance 1=Total Assistance 5=Supervision or Setup 2=Maximal Assistance 6=Modified [place] 3=Moderate Assistance 7=Complete IndependenceSCALE: Activities may be completed with or without assistive devices. 2-Vhdphmorjk-krbwrji completes the activity by him/herself with no assistance from a helper. 5-Set-up or Clean-up Assistance-helper sets up or cleans up; patient completes a ctivity. [place] assists only prior to or following the activity. 4-Supervision or Touching Assistance-helper provides verbal cues and/or touching/steadying and/or contact guard assistance as patient completes activity. Assistance may be provided throughout the activity or intermittently. 3-Partial/Moderate Assistance-helper does LESS THAN HALF the effort. [place] lifts, holds or supports trunk or limbs, but provides less than half the effort. 2-Substantial/Maximal Assistance-helper does MORE THAN HALF the effort. [place] lifts or holds trunk or limbs and provides more than half the effort. 2-Jbcsywkes-buhebx does ALL the effort. Patient does none of the effort to complete the activity. Or, the assistance of 2 or more helpers is required for the patient to complete the activity. If activity was not attempted, code reason: 7-Patient Refused. 9-Not Applicable-not attempted and the patient did not perform the activity before the current illness, exacerbation or injury. 10-Not Attempted due to Environmental Limitations-(lack of equipment, weather restraints, etc.). 88-Not Attempted due to Medical Conditions or Safety Concerns. Eating (QC): 6 (IND) Oral Hygiene (QC): 4 (SBA at sink) Shower/Bathe Self (QC): 4 (SBA) Upper Body Dressing (QC): 4 (SBA) Lower Body Dressing (QC): 4 (SBA) On/Off Footwear: 4 (SBA) Toileting Hygiene (QC): 4 (SBA) Toilet Transfer (QC): 4 (SBA) Other Treatment Pt seated in recliner, agreeable to OT Tx. Pt uses FWW to ambulate into bathroom and onto toilet. Pt completed toileting, then states she needs to get underwear from her closet. Pt went to closet, gathered underwear, SBA, then transferred back to toilet to doff clothes. Pt transferred into shower, completed shower SBA, then transferred to toilet to get dressed. Stood at sink for oral care, then returned to recliner. OT heated pt's breakfast up, she then ate independently. Throughout tx with transfers and ambulation pt required cues to manage O2 tubing, and for safety awareness. Post tx, pt seated in recliner, call light in reach and all needs met, nurse present. Education OT Patient Education: Correct positioning, Modified ADL techniques, Progress toward Goal/Update tx plan, Purpose of tx/functional activities Teaching Recipient: Patient Teaching Methods: Discussion Response to Teaching: Verbalize Understanding OT Short Term Goals Short Term Goals Time Frame: September 24, 2020 Shower/bathe self: 5 Upper body dressin Lower body dressin Putting on/taking off footwear: 5 OT [employer] Founder Goals Custodial Goals Time Frame: Oct 08, 2020 Eating (QC): 6 Oral Hygiene (QC): 6 Toileting Hygiene (QC): 6 Shower/Bathe Self (QC): 6 Upper Body Dressing (QC): 6 Lower Body Dressing (QC): 6 On/Off Footwear (QC): 6 Additional Goals: 1-Demonstrate ADL Tasks, 2-Verbalize Understanding, 3- ImproveStrength/Yolanda 1=Demonstrate adherence to instructed precautions during ADL tasks. 2=Patient will verbalize/demonstrate understanding of assistive devices/modifications for ADL. 3=Patient will improve strength/tolerance for activity to enable patient to perform ADL's. OT Education/Plan Problem List/Assessment Assessment: Decreased Activ Tolerance, Decreased Safety Aware, Decreased UE Strength, Impaired Funct Balance, Impaired I ADL's, Impaired Self-Care Skills Discharge Recommendations Plan/Recommendations: Continue POC Treatment Plan/Plan of Care Patient would benefit from OT for education, treatment and training to promote independence in ADL's, mobility, safety and/or upper extremity function for ADL's. Plan of Care: ADL Retraining, Functional Mobility, Group Exercise/Act as Ind, UE Funct Exercise/Act Treatment Duration: September 13, 2020 Frequency: At least 5 of 7 days/Wk (IRF) Estimated Hrs Per Day: 1.5 hours per day Agreement: Yes Rehab Potential: Good Time/GCodes Start Time: 08:00 Stop Time: 09:00 Total Time Billed (hr/min): 60 Billed Treatment Time 1, ADL 4 ANYA CARBALLO OT September 15, 2020 09:01
[2020-09-15] MEDS: polyethylene glycoL POWDER 17 GM (MIRALAX) PACK PO SCH ×2 (09:51→20:31)
--- NOTE | 2020-09-15 11:16 | Physical Therapy Daily Note ---
PT Daily Note-Current Subjective Pt sitting up in recliner upon arrival. Pt agrees to PT. Pain Location: No Pain Reported Mental Status Patient Orientation: Person, Place, Time, Situation Attachments: Oxygen (1L) Transfers SCALE: Activities may be completed with or without assistive devices. 1-Woamyflwdx-ujcucok completes the activity by him/herself with no assistance from a helper. 5-Set-up or Clean-up Assistance-helper sets up or cleans up; patient completes activity. [place] assists only prior to or following the activity. 4-Supervision or Touching Assistance-helper provides verbal cues and/or touching/steadying and/or contact guard assistance as patient completes activity. Assistance may be provided throughout the activity or intermittently. 3-Partial/Moderate Assistance-helper does LESS THAN HALF the effort. [place] lifts, holds or supports trunk or limbs, but provides less than half the effort. 2-Substantial/Maximal Assistance-helper does MORE THAN HALF the effort. [place] lifts or holds trunk or limbs and provides more than half the effort. 7-Fpfvksuty-suctpm does ALL the effort. Patient does none of the effort to complete the activity. Or, the assistance of 2 or more helpers is required for the patient to complete the activity. If activity was not attempted, code reason: 7-Patient Refused. 9-Not Applicable-not attempted and the patient did not perform the activity before the current illness, exacerbation or injury. 10-Not Attempted due to Environmental Limitations-(lack of equipment, weather restraints, etc.). 88-Not Attempted due to Medical Conditions or Safety Concerns. Sit to Stand (QC): 6 Weight Bearing Right Lower Extremity: Right Full Weight Bearing Left Lower Extremity: Left Full Weight Bearing Gait Training Does the Patient Walk?: Yes Distance: 125' x2 Walk 10 feet (QC): 5 Walk 50 ft with 2 Turns(QC): 5 Gait Persons Needed: 1 Gait Assistive Device: FWW Pt is improving with management of O2 and decreased impulsivity. Wheelchair Training Does the Pt Use a Wheelchair?: No Exercises Supine Ex: Ankle pumps, Quad Set, Glut sets, Heel Slides, Straight leg raise, Hip abd/add Supine Reps: 15 Seated Therapy Exercises: Ankle pumps, Long arc quads, Hip flexion, Glut set Seated Reps: 15 NuStep Minutes: 12 NuStep Workload: 5 Treatments [id number]: TF to standing and amb. in hallway. Pt uses NuStep as well as completes Seated Ex. Pt takes RB as needed. Amb. in hallway and returns to room at end of tx. Pt declines needing BR, rests Supine in bed with all needs met, call light in hand. [id number]: Pt resting in bed upon arrival. OUTSOLE BEVELER reviews Supine EX and pt resting at end of tx. All needs met, call light in hand. Assessment Pt is more aware cognitively today. Pt still takes RB as needed for fatigue. PT Short Term Goals Short Term Goals Time Frame: September 18, 2020 Roll Left & Right: 6 Sit to lyin Lying to sitting on side of be: 6 Sit to stand: 6 Chair/tzl-rh-ozzqj transfer: 6 PT Retirement Goals Retirement Goals PT Lead C Developer Goals Time Frame: October 02, 2020 Roll Left & Right (QC): 6 Sit to Lying (QC): 6 Lying-Sitting on Side/Bed(QC): 6 Sit to Stand (QC): 6 Chair/Efl-nf-Mljuw Xfer(QC): 6 Toilet Transfer (QC): 6 Car Transfer (QC): 6 Does the Patient Walk: Yes Walk 10 feet (QC): 6 Walk 50ft with 2 Turns (QC): 6 Walk 150 ft (QC): 6 Walking 10ft on Uneven Surface: 6 1 Step (curb) (QC): 6 4 Steps (QC): 6 12 Steps (QC): 6 Picking up an Object (QC): 6 Does the Pt use WC or Scooter?: No Wheel 50 feet with 2 turns (QC: 9 Type: N/A Wheel 150 feet: 9 Type: N/A PT Plan Problem List Problem List: Activity Tolerance Treatment/Plan Treatment Plan: Continue Plan of Care Treatment Plan: Bed Mobility, Education, Functional Activity Yolanda, Functional Strength, Group Therapy, Gait, Safety, Therapeutic Exercise, Transfers Treatment Duration: October 02, 2020 Frequency: At least 5 of 7 days/Wk (IRF) Estimated Hrs Per Day: 1.5 hours per day Patient and/or Family Agrees t: Yes Safety Risks/Education Patient Education: Gait Training, Correct Positioning, Safety Issues Teaching Recipient: Patient Teaching Methods: Discussion Response to Teaching: Verbalize Understanding Time/GCodes Time In: 1015 Time Out: 1315 Total Billed Treatment Time: 75 Total Billed Treatment [id number]: 1, GT (15m), FA (15m) & EX x2 (30m) [id number]: 1, EX (15m) TAMRA LION OUTSOLE BEVELER September 15, 2020 11:16
--- NOTE | 2020-09-15 13:48 | Occupational Ther Daily Note ---
OT Current Status-Daily Note Subjective Pt laying in bed after PT tx, agreeable to OT. Mental Status/Objective Patient Orientation: Person, Place, Situation Attachments: Oxygen ADL-Treatment Therapy Code Descriptions/Definitions Functional [place] Measure: 0=Not Assessed/NA 4=Minimal Assistance 1=Total Assistance 5=Supervision or Setup 2=Maximal Assistance 6=Modified [place] 3=Moderate Assistance 7=Complete IndependenceSCALE: Activities may be completed with or without assistive devices. 5-Gamlalxhjs-mbxsjdv completes the activity by him/herself with no assistance from a helper. 5-Set-up or Clean-up Assistance-helper sets up or cleans up; patient completes activity. [place] assists only prior to or following the activity. 4-Supervision or Touching Assistance-helper provides verbal cues and/or touc heather/steadying and/or contact guard assistance as patient completes activity. Assistance may be provided throughout the activity or intermittently. 3-Partial/Moderate Assistance-helper does LESS THAN HALF the effort. [place] lifts, holds or supports trunk or limbs, but provides less than half the effort. 2-Substantial/Maximal Assistance-helper does MORE THAN HALF the effort. [place] lifts or holds trunk or limbs and provides more than half the effort. 7-Iftiaywpk-mwwfgm does ALL the effort. Patient does none of the effort to complete the activity. Or, the assistance of 2 or more helpers is required for the patient to complete the activity. If activity was not attempted, code reason: 7-Patient Refused. 9-Not Applicable-not attempted and the patient did not perform the activity before the current illness, exacerbation or injury. 10-Not Attempted due to Environmental Limitations-(lack of equipment, weather restraints, etc.). 88-Not Attempted due to Medical Conditions or Safety Concerns. Other Treatment Pt laying in bed, transferred supine to sit EOB. Pt stood at W, using walker to ambulate to [facility] kitchen area. Pt shown where items are located and instructed to make a glass of tea, pt able to locate tea bag and place into cup, fill with water and take to microwave SBA. Pt instructed to find "STOP" button on microwave, pt unable to locate button requiring assistance. Pt able to turn microwave on for 1 minute and remove cup after heating. Pt returned to room (OT carried pt's drink). Pt completed toileting, then transferred to EOB. Post tx, pt seated EOB, call light in reach and all needs met, bed alarm on. min-mod verbal cues to manage O2 tubing throughout tx Education OT Patient Education: Correct positioning, Modified ADL techniques, Progress toward Goal/Update tx plan, Purpose of tx/functional activities, Rehab process, Safety issues Teaching Recipient: Patient Teaching Methods: Discussion Response to Teaching: Verbalize Understanding OT Short Term Goals Short Term Goals Time Frame: September 24, 2020 Shower/bathe self: 5 Upper body dressin Lower body dressin Putting on/taking off footwear: 5 OT Fpc Goals Retail Pharmacy Merchandiser Goals Time Frame: Oct 08, 2020 Eating (QC): 6 Oral Hygiene (QC): 6 Toileting Hygiene (QC): 6 Shower/Bathe Self (QC): 6 Upper Body Dressing (QC): 6 Lower Body Dressing (QC): 6 On/Off Footwear (QC): 6 Additional Goals: 1-Demonstrate ADL Tasks, 2-Verbalize Understanding, 3- ImproveStrength/Yolanda 1=Demonstrate adherence to instructed precautions during ADL tasks. 2=Patient will verbalize/demonstrate understanding of assistive devices/modifications for ADL. 3=Patient will improve strength/tolerance for activity to enable patient to perform ADL's. OT Education/Plan Problem List/Assessment Assessment: Decreased Activ Tolerance, Decreased UE Strength, Impaired I ADL's, Impaired Self-Care Skills Discharge Recommendations Plan/Recommendations: Continue POC Treatment Plan/Plan of Care Patient would benefit from OT for education, treatment and training to promote independence in ADL's, mobility, safety and/or upper extremity function for ADL's. Plan of Care: ADL Retraining, Functional Mobility, Group Exercise/Act as Ind, UE Funct Exercise/Act Treatment Duration: September 13, 2020 Frequency: At least 5 of 7 days/Wk (IRF) Estimated Hrs Per Day: 1.5 hours per day Agreement: Yes Rehab Potential: Good Time/GCodes Start Time: 13:15 Stop Time: 13:30 Total Time Billed (hr/min): 15 Billed Treatment Time 1, ADL ANYA CARBALLO OT September 15, 2020 13:48
[2020-09-15] MEDS ORDERED: CHOL100045 PO (14:54)
[2020-09-15] MEDS ORDERED: LEVO150T6 PO (14:54)
[2020-09-15] MEDS ORDERED: ASPI-1238 PO (14:54)
[2020-09-15] MEDS ORDERED: ATOR40TA70 PO (14:54)
[2020-09-15 20:00] VITALS: BP 110/51
[2020-09-15] MEDS: SERTRALINE 100 MG (ZOLOFT) TAB PO SCH (20:27)
[2020-09-15] MEDS: MONTELUKAST 10 MG (SINGULAIR) TAB PO SCH (20:27)
[2020-09-15] MEDS: rOPINIRole 0.25 MG (REQUIP) TAB PO SCH (20:27)
[2020-09-16 08:00] VITALS: BP 138/70
--- NOTE | 2020-09-16 08:31 | Cardiology Progress Note ---
Subjective Date Seen by Provider: September 16, 2020 Time Seen by Provider: 08:30 Subjective/Events-last exam Patient is with PT. Denies any chest pain, continues to c/o DILLON Review of Systems General: No Chills, No Night Sweats; Fatigue, Malaise; No Appetite, No Other HEENT: No Head Aches, No Visual Changes, No Eye Pain, No Ear Pain, No Dysphasia, No Sinus Congestion, No Post Nasal Drip, No Sore Throat, No Other Pulmonary: No Dyspnea, No Cough, No Pleuritic Chest Pain, No Other Cardiovascular: No: Chest Pain, Palpitations, Orthopnea, Paroxysmal Noc. Dyspnea, Edema, Lt Headedness, Other Objective-Cardiology Exam Last Set of Vital Signs Vital Signs 09/16/20 09/16/20 09/16/20 08:00 08:56 09:02 Temp 36.6 Pulse 84 Resp 18 B/P (MAP) 138/70 (92) Pulse Ox 95 O2 Delivery Nasal Cannula O2 Flow Rate 2.00 Capillary Refill : General: Alert, Oriented X3, Cooperative HEENT: Atraumatic, PERRLA Neck: Supple, No JVD, No Thyromegaly Lungs: Clear to Auscultation, Normal Air Movement Heart: Regular Rate, Normal S1, Normal S2, No Murmurs Abdomen: Normal Bowel Sounds, Soft, No Tenderness, No Hepatosplenomegaly, No Masses Extremities: No Edema Skin: No Rashes, No Significant Lesion Neuro: Normal Gait, Normal Speech Psych/Mental Status: Mental Status NL, Mood NL A/P-Cardiology Admission Diagnosis Hemorrhagic CVA Generalized debility/weakness COPD DM Assessment/Plan Hemorrhagic CVA, 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 Continues to c/o mild DILOLN. Normal blood pressure, no history of hypertension, continue to monitor blood pressure Generalized debility/weakness, continue PT/OT COPD, oxygen dependent, management per medical services DM, management per medical services Obesity Extobaccoism Multiple risk factors for underlying CAD, consider further workup as outpatient. Patient was seen and evaluated with Shaylee, examination performed, management plan was discussed, agree with the current scribed note, I made few changes to the note using Italic font Patient was seen and evaluated, sitting at bedside, still having headache No chest pain Continue current medication, monitor blood pressure and lipids Continue with physical therapy Clinical Quality Measures DVT/VTE Risk/Contraindication: Contraindications-Pharm: Other *list below* Other: hemorrhagic cva Supervisory-Addendum Brief Supervisory Addendum Participated in pt care: history, MDM, physical Personally performed: exam, history, MDM Care discussed with: SHAYLEE BOJORQUEZ September 16, 2020 8:31 am YASMINE LEE MD September 16, 2020 4:51 pm
[2020-09-16] MEDS: VITAMIN D3 25 MCG (1,000 UNITS) TABLET PO SCH (08:41)
[2020-09-16] MEDS: FAMOTIDINE 20 MG (PEPCID) TABLET PO SCH (08:41)
[2020-09-16] MEDS: LEVOTHYROXINE 75 MCG (LEVOTHROID) TABLET PO SCH (08:41)
[2020-09-16] MEDS: LORATADINE (CLARITIN) 10 MG TAB PO SCH (08:41)
[2020-09-16] MEDS: RT--FLUTICASONE/SALMETEROL 232-14 (AIRDUO RespiCLICK) IH SCH ×2 (08:55→20:17)
--- NOTE | 2020-09-16 09:18 | Occupational Ther Daily Note ---
OT Current Status-Daily Note Subjective Pt seated EOB, agreeable to OT Tx. Mental Status/Objective Patient Orientation: Person, Place, Situation Attachments: Oxygen ADL-Treatment Therapy Code Descriptions/Definitions Functional [place] Measure: 0=Not Assessed/NA 4=Minimal Assistance 1=Total Assistance 5=Supervision or Setup 2=Maximal Assistance 6=Modified [place] 3=Moderate Assistance 7=Complete IndependenceSCALE: Activities may be completed with or without assistive devices. 6-Xpvrbarybi-lobamox completes the activity by him/herself with no assistance from a helper. 5-Set-up or Clean-up Assistance-helper sets up or cleans up; patient completes activity. [place] assists only prior to or following the activity. 4-Supervision or Touching Assistance-helper provides verbal cues and/or touching/steadying and/or contact guard assistance as patient completes activity. Assistance may be provided throughout the activity or intermittently. 3-Partial/Moderate Assistance-helper does LESS THAN HALF the effort. [place] lifts, holds or supports trunk or limbs, but provides less than half the effort. 2-Substantial/Maximal Assistance-helper does MORE THAN HALF the effort. [place] lifts or holds trunk or limbs and provides more than half the effort. 7-Yddnvovpm-brqyhq does ALL the effort. Patient does none of the effort to complete the activity. Or, the assistance of 2 or more helpers is required for the patient to complete the activity. If activity was not attempted, code reason: 7-Patient Refused. 9-Not Applicable-not attempted and the patient did not perform the activity before the current illness, exacerbation or injury. 10-Not Attempted due to Environmental Limitations-(lack of equipment, weather restraints, etc.). 88-Not Attempted due to Medical Conditions or Safety Concerns. Eating (QC): 6 (IND) Oral Hygiene (QC): 4 (Supervision standing at sink) Shower/Bathe Self (QC): 4 (SBA, pt able to wash/dry all parts, cue to sit down for safety and energy conservation) Upper Body Dressing (QC): 4 (SBA, cue to get shirt from closet) Lower Body Dressing (QC): 4 (pt gathered LE clothing from closet, donned with supervision) On/Off Footwear: 4 (SBA, pt cued to don socks while dressing) Toileting Hygiene (QC): 4 (supervision) Toilet Transfer (QC): 4 (supervision) Other Treatment Pt seated EOB eating breakfast, agreeable to OT tx. Pt gathered clothing from closet, then started walking towards bathroom, SBA no AD. Pt asked if she is missing any articles of clothing, pt able to then return to closet to gather shirt. Pt transferred into bathroom, and onto toilet. Pt completed toileting, doffed clothes, then transferred into shower to complete showering. Pt dried off, stood at sink to brush teeth, then transferred to toilet and donned clothing. Pt stood at sink to comb hair, then returned to recliner. SBA throughout tx with functional mobility and transfers (no AD used within her r oom), with moderate verbal cues to manage O2 tubing and not walk with it between her feet. Pt completed fine motor task, removing beads from red theraputty in order to increase fine motor strength and coordination. Post tx, pt seated in recliner, call light in reach and all needs met, chair alarm on. Education OT Patient Education: Correct positioning, Modified ADL techniques, Progress toward Goal/Update tx plan, Purpose of tx/functional activities, Rehab process Teaching Recipient: Patient Teaching Methods: Discussion Response to Teaching: Verbalize Understanding (a) OT Short Term Goals Short Term Goals Time Frame: September 24, 2020 Shower/bathe self: 5 Upper body dressin Lower body dressin Putting on/taking off footwear: 5 OT Electric Powerline Examiner Goals Usp Goals Time Frame: Oct 08, 2020 Eating (QC): 6 Oral Hygiene (QC): 6 Toileting Hygiene (QC): 6 Shower/Bathe Self (QC): 6 Upper Body Dressing (QC): 6 Lower Body Dressing (QC): 6 On/Off Footwear (QC): 6 Additional Goals: 1-Demonstrate ADL Tasks, 2-Verbalize Understanding, 3- ImproveStrength/Yolanda 1=Demonstrate adherence to instructed precautions during ADL tasks. 2=Patient will verbalize/demonstrate understanding of assistive devices/modifications for ADL. 3=Patient will improve strength/tolerance for activity to enable patient to perform ADL's. OT Education/Plan Problem List/Assessment Assessment: Decreased Activ Tolerance, Decreased Safety Aware, Decreased UE Strength, Impaired I ADL's, Impaired Self-Care Skills Discharge Recommendations Plan/Recommendations: Continue POC Treatment Plan/Plan of Care Patient would benefit from OT for education, treatment and training to promote independence in ADL's, mobility, safety and/or upper extremity function for ADL's. Plan of Care: ADL Retraining, Functional Mobility, Group Exercise/Act as Ind, UE Funct Exercise/Act Treatment Duration: September 13, 2020 Frequency: At least 5 of 7 days/Wk (IRF) Estimated Hrs Per Day: 1.5 hours per day Agreement: Yes Rehab Potential: Good Time/GCodes Start Time: 08:00 Stop Time: 09:15 Total Time Billed (hr/min): 75 Billed Treatment Time 1, ADL 4 (60'), FA (15') ANYA CARBALLO OT September 16, 2020 09:18
[2020-09-16] MEDS: polyethylene glycoL POWDER 17 GM (MIRALAX) PACK PO SCH (09:34)
[2020-09-16] MEDS: DOCUSATE SODIUM 100 MG (COLACE) CAP PO SCH (09:34)
[2020-09-16] MEDS: SENNA W/DOCUSATE (SENOKOT S) TABLET PO SCH (09:34)
[2020-09-16] MEDS: SINEMET CR 50/200 (CARBIDOPA/LEVODOPA SA) TAB PO SCH ×3 (09:39→21:36)
--- NOTE | 2020-09-16 10:30 | Speech Therapy Daily Note ---
Speech Daily Progress Note Subjective Date Seen by Provider: September 16, 2020 Time Seen by Provider: 00:30 Pt was in her bed during tx. Pt did not want to sit in her recliner. Pt fell asleep on multiple occasions throughout the session. Objective Patient completed sequencing tasks related to daily living at 50% with maximum cues. Assessment Assessment Current Status: Poor Progress Treatment Plan Continue Plan of Care Speech Short Term Goals Short Term Goals Short Term Goals 1) Patient will complete sequencing tasks related to daily living at 80% or greater with minimal cues. 2) Patient will complete simple multiple step following directions tasks related to daily living at 80% or greater with minimal cues. Speech Plant Assigner Goals Plant Assigner Goals Patient will improve independence of daily living tasks with minimal assistance. Speech-Plan Patient/Family Goals Patient/Family Goals: Pt plans to return home upon D/C from ARU. Treatment Plan Speech Therapy Treatment Plan: Continue Plan of Care Treatment Duration: September 24, 2020 Frequency: 4 times per week (Patient will receive skilled ST 4-5x per week) Estimated Hrs Per Day: .5 hour per day Rehab Potential: Good Barriers to Learning: Medical status and age. Pt/Family Agrees to Plan: Yes Safety Risks/Education Teaching Recipient: Patient, Significant Other Teaching Methods: Demonstration Response to Teaching: Verbalize Understanding, Return Demonstration Education Topics Provided: Safety awareness and sequencing. Time Speech Therapy Time In: 11:15 Speech Therapy Time Out: 11:45 Total Billed Time: 30 Billed Treatment Time 1WANDA BETHANIA ST September 16, 2020 10:30
--- NOTE | 2020-09-16 11:10 | PM&R Progress Note ---
Subjective HPI/CC On Admission Date Seen by Provider: September 16, 2020 Time Seen by Provider: 11:30 Subjective/Events-last exam 09/16/20: Patient doing well Laxatives held due to loose stools No major issues 09/15/20: Patient doing well Impulsive Alarms on chair and bed Patient is DNR so that order placed BM+ 09/14/20: Pt doing pretty well Bed alarm for impulsiveness Pt up to the bathroom this morning with help, but there is some vision loss making it a fall risk Bowels moved yesterday 09/13/20: Patient doing really well No major issues Bowels move 2 days ago Oxygen is 24/7 09/12/20: Patient doing well Has a DILLON and APAP given No other pain Peripheral vision loss noted PCP visited her today Checked meds and labs BP ok Review of Systems General: Fatigue, Malaise Neurological: Weakness Objective Exam Vital Signs Vital Signs Date Time Temp Pulse Resp B/P (MAP) Pulse Ox O2 Delivery O2 Flow Rate FiO2 09/16/20 21:10 94 Nasal Cannula 2.00 09/16/20 20:39 36.9 85 18 120/57 (78) Capillary Refill : General Appearance: No Apparent Distress, WD/WN, Chronically ill HEENT: PERRL/EOMI, Normal ENT Inspection, Pharynx Normal Neck: Full Range of Motion, Normal Inspection, Non Tender, Supple, Carotid Bruit Respiratory: Chest Non Tender, Lungs Clear, No Accessory Muscle Use, No Respiratory Distress, Decreased Breath Sounds Cardiovascular: Regular Rate, Rhythm, No Edema, No Gallop, No JVD, No Murmur, Normal Peripheral Pulses Gastrointestinal: Normal Bowel Sounds, No Organomegaly, No Pulsatile Mass, Non Tender, Soft Rectal: Deferred Back: Normal Inspection, No CVA Tenderness, No Vertebral Tenderness Extremity: Normal Capillary Refill, Normal Inspection, Normal Range of Motion, Non Tender, No Calf Tenderness, No Pedal Edema Neurologic/Psychiatric: Alert, Oriented x3, No Motor/Sensory Deficits, Normal Mood/Affect, 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 FIM Transfers Therapy Code Descriptions/Definitions Functional [place] Measure: 0=Not Assessed/NA 4=Minimal Assistance 1=Total Assistance 5=Supervision or Setup 2=Maximal Assistance 6=Modified [place] 3=Moderate Assistance 7=Complete IndependenceSCALE: Activities may be completed with or without assistive devices. 6-Kmsihchevk-ypnsnrb completes the activity by him/herself with no assistance from a helper. 5-Set-up or Clean-up Assistance-helper sets up or cleans up; patient completes activity. [place] assists only prior to or following the activity. 4-Supervision or Touching Assistance-helper provides verbal cues and/or t ouching/steadying and/or contact guard assistance as patient completes activity. Assistance may be provided throughout the activity or intermittently. 3-Partial/Moderate Assistance-helper does LESS THAN HALF the effort. [place] lifts, holds or supports trunk or limbs, but provides less than half the effort. 2-Substantial/Maximal Assistance-helper does MORE THAN HALF the effort. [place] lifts or holds trunk or limbs and provides more than half the effort. 0-Rxckvhxyj-bauwuj does ALL the effort. Patient does none of the effort to complete the activity. Or, the assistance of 2 or more helpers is required for the patient to complete the activity. If activity was not attempted, code reason: 7-Patient Refused. 9-Not Applicable-not attempted and the patient did not perform the activity before the current illness, exacerbation or injury. 10-Not Attempted due to Environmental Limitations-(lack of equipment, weather restraints, etc.). 88-Not Attempted due to Medical Conditions or Safety Concerns. Roll Left to Right (QC): 6 Sit to Lying (QC): 6 Sit to Stand (QC): 6 Chair/Wpu-ti-Cvfps Xfer(QC): 6 Car Transfer (QC): 6 Gait Training Does the Patient Walk?: Yes Distance: 125' x2 Walk 10 feet (QC): 5 Walk 50 ft with 2 Turns(QC): 5 Walk 150 ft (QC): 6 Walking 10ft/uneven surface-QC: 4 Gait Persons Needed: 1 Gait Assistive Device: FWW Wheelchair Training Does the Pt Use a Wheelchair?: No Wheel 50 ft with 2 turns (QC): 9 Wheel 150 ft (QC): 9 Type of Wheelchair: N/A Stair Training Stair Training: Handrails/: 2 handrails #of Steps: 4 1 Step (curb) (QC): 4 4 Steps (QC): 4 12 Steps (QC): 88 Stairs: Pattern: Reciprocal Balance Picking up an Object (QC): 4 ADL-Treatment Eating (QC): 6 (IND) Oral Hygiene (QC): 4 (Supervision standing at sink) Shower/Bathe Self (QC): 4 (SBA, pt able to wash/dry all parts, cue to sit down for safety and energy conservation) Upper Body Dressing (QC): 4 (SBA, cue to get shirt from closet) Lower Body Dressing (QC): 4 (pt gathered LE clothing from closet, donned with supervision) On/Off Footwear (QC): 4 (SBA, pt cued to don socks while dressing) Toileting Hygiene (QC): 4 (supervision) Toilet Transfer (QC): 4 (supervision) Assessment/Plan Assessment and Plan Assess & Plan/Chief Complaint Assessment: 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 COPD with 24/7 O2 dependence Former smoker HTN Falls Hypothyroidism Parkinson's disease Carotid stenosis HLP CVA ischemic type remotely in the past without residual Plan: IRF protocol Monitor closely Monitor BP Fall risk 09/12/20: DILLON management No issues otherwise 09/13/20: Monitor oxygen level Supportive care 09/14/20: Monitor closely O2 maintained IRF therapies 09/15/20: Monitor for falls Impulsiveness noted 09/16/20: Monitor closely DC laxatives (1) Hemorrhagic stroke Status: Acute (2) Parkinson disease (3) Falls (4) Carotid stenosis, bilateral (5) Oxygen dependent (6) Depression (7) Hypothyroidism (8) Hypertension (9) Former smoker (10) Diabetes (11) COPD (chronic obstructive pulmonary disease) Status: Acute JUN LOUIS DO September 16, 2020 11:10
--- NOTE | 2020-09-16 11:17 | Physical Therapy Daily Note ---
PT Daily Note-Current Subjective Pt sitting in recliner with daughter present upon arrival. Pt agrees to PT. Pain Location: No Pain Reported Mental Status Patient Orientation: Person, Confused, Place Transfers SCALE: Activities may be completed with or without assistive devices. 5-Hjhmctrvcs-iafeecu completes the activity by him/herself with no assistance from a helper. 5-Set-up or Clean-up Assistance-helper sets up or cleans up; patient completes activity. [place] assists only prior to or following the activity. 4-Supervision or Touching Assistance-helper provides verbal cues and/or touching/steadying and/or contact guard assistance as patient completes activity. Assistance may be provided throughout the activity or intermittently. 3-Partial/Moderate Assistance-helper does LESS THAN HALF the effort. [place] lifts, holds or supports trunk or limbs, but provides less than half the effort. 2-Substantial/Maximal Assistance-helper does MORE THAN HALF the effort. [place] lifts or holds trunk or limbs and provides more than half the effort. 1-Zexqdjbvz-uclcac does ALL the effort. Patient does none of the effort to complete the activity. Or, the assistance of 2 or more helpers is required for the patient to complete the activity. If activity was not attempted, code reason: 7-Patient Refused. 9-Not Applicable-not attempted and the patient did not perform the activity before the current illness, exacerbation or injury. 10-Not Attempted due to Environmental Limitations-(lack of equipment, weather restraints, etc.). 88-Not Attempted due to Medical Conditions or Safety Concerns. Sit to Stand (QC): 5 Weight Bearing Right Lower Extremity: Right Full Weight Bearing Left Lower Extremity: Left Full Weight Bearing Gait Training Does the Patient Walk?: Yes Distance: 150' x2 Walk 10 feet (QC): 5 Walk 50 ft with 2 Turns(QC): 5 Walk 150 ft (QC): 5 Gait Persons Needed: 1 Gait Assistive Device: FWW Wheelchair Training Does the Pt Use a Wheelchair?: No Exercises Supine Ex: Ankle pumps, Quad Set, Glut sets, Heel Slides, Straight leg raise, Hip abd/add Supine Reps: 15 Seated Therapy Exercises: Ankle pumps, Long arc quads, Hip flexion, Glut set Seated Reps: 15 NuStep Minutes: 12 NuStep Workload: 4 Treatments 0669-3167: TF to standing and uses BR. Pt amb. in hallway then uses NuStep. Pt completes Seated Ex , taking RB as needed. Amb. in hallway returning to room to rest in bed at end of tx. All needs met, call light in hand. [id number]: Pt completes Supine Ex in bed then resting Supine in bed. All needs met, call light in hand. Assessment Current Status: Good Progress Pt has improved with sequencing and managing O2 line during ambulation. PT Short Term Goals Short Term Goals Time Frame: September 18, 2020 Roll Left & Right: 6 Sit to lyin Lying to sitting on side of be: 6 Sit to stand: 6 Chair/gki-xv-hqpga transfer: 6 PT Jail Goals Police Radio Dispatcher Goals PT Police Radio Dispatcher Goals Time Frame: October 02, 2020 Roll Left & Right (QC): 6 Sit to Lying (QC): 6 Lying-Sitting on Side/Bed(QC): 6 Sit to Stand (QC): 6 Chair/Ply-tu-Ryhvo Xfer(QC): 6 Toilet Transfer (QC): 6 Car Transfer (QC): 6 Does the Patient Walk: Yes Walk 10 feet (QC): 6 Walk 50ft with 2 Turns (QC): 6 Walk 150 ft (QC): 6 Walking 10ft on Uneven Surface: 6 1 Step (curb) (QC): 6 4 Steps (QC): 6 12 Steps (QC): 6 Picking up an Object (QC): 6 Does the Pt use WC or Scooter?: No Wheel 50 feet with 2 turns (QC: 9 Type: N/A Wheel 150 feet: 9 Type: N/A PT Plan Problem List Problem List: Activity Tolerance, Safety Treatment/Plan Treatment Plan: Continue Plan of Care Treatment Plan: Bed Mobility, Education, Functional Activity Yolanda, Functional Strength, Group Therapy, Gait, Safety, Therapeutic Exercise, Transfers Treatment Duration: October 02, 2020 Frequency: At least 5 of 7 days/Wk (IRF) Estimated Hrs Per Day: 1.5 hours per day Patient and/or Family Agrees t: Yes Safety Risks/Education Patient Education: Correct Positioning, Safety Issues Teaching Recipient: Patient Teaching Methods: Discussion Response to Teaching: Verbalize Understanding Time/GCodes Time In: 1015 Time Out: 1315 Total Billed Treatment Time: 75 Total Billed Treatment [id number]: 1, FA (15m), GT (15m) & EX x2 (30m) [id number]: 1, EX (15m) TAMRA LION GREEN COFFEE BLENDER September 16, 2020 11:17
--- NOTE | 2020-09-16 12:57 | Progress Note ---
Subjective Date Seen by a Provider: September 16, 2020 Time Seen by a Provider: 12:55 Subjective/Events-last exam Fwup Acute Right Sided Hemorrhagic Stoke, HTN, COPD, Hypothyroidism, Cephalgia. Ongoing low grad DILLON at level 1-2. Daughter in room and states therapy says patient is doing better with sequencing. Plan is DC next week--they had suggested [place] but family wants to take her home with someone staying with her and see how she does first. Objective Exam Vital Signs Date Time Temp Pulse Resp B/P (MAP) Pulse Ox O2 Delivery O2 Flow Rate FiO2 09/16/20 09:02 Nasal Cannula 2.00 09/16/20 08:56 95 Nasal Cannula 2.00 09/16/20 08:00 36.6 84 18 138/70 (92) 94 Nasal Cannula 2.00 09/15/20 23:15 94 Nasal Cannula 1.00 09/15/20 21:00 99 Nasal Cannula 2.00 09/15/20 20:00 36.9 87 18 110/51 (70) 99 Nasal Cannula 2.00 Capillary Refill : General Appearance: No Apparent Distress Respiratory: Lungs Clear Cardiovascular: Regular Rate, Rhythm Gastrointestinal: normal bowel sounds, non tender, soft Extremity: Non Tender, No Calf Tenderness, No Pedal Edema Neurologic/Psychiatric: Alert, Oriented x3 Assessment/Plan Assessment/Plan Assess & Plan/Chief Complaint 1. Acute Right Sided Hemorrhagic Stoke--plan is to repeat scan 2 weeks from discharge from [facility] and restart aspirin if improved/resolved, continue PT/OT/ST 2. HTN--stable 3. COPD--stable 4. Depression with impulse control--increased sertraline dose Clinical Quality Measures Admission Status Admission Dx 1. Acute Right Sided Hemorrhagic Stoke with ongoing cephalgia, possible peripheral vision loss and some impulsivity per nursing--PT/OT and ST 2. Hypertension--stable 3. COPD--oxygen dependant 4. Hypothyroidism--stable, back on home dose 5. Previous Ischemic CVA with encephalomalacia present DVT/VTE Risk/Contraindication: Contraindications-Pharm: Other *list below* Other: hemorrhagic cva AMEYA PEREZ DO September 16, 2020 12:57
--- NOTE | 2020-09-16 15:03 | Physical Therapy Daily Note ---
PT Daily Note-Current Subjective Pt laying Supine in bed upon arrival. Pt agrees to PT. Pt asks to use BR. Mental Status Patient Orientation: Person, Place Transfers SCALE: Activities may be completed with or without assistive devices. 8-Gloykptjty-ljuoteq completes the activity by him/herself with no assistance from a helper. 5-Set-up or Clean-up Assistance-helper sets up or cleans up; patient completes a ctivity. [place] assists only prior to or following the activity. 4-Supervision or Touching Assistance-helper provides verbal cues and/or touching/steadying and/or contact guard assistance as patient completes activity. Assistance may be provided throughout the activity or intermittently. 3-Partial/Moderate Assistance-helper does LESS THAN HALF the effort. [place] lifts, holds or supports trunk or limbs, but provides less than half the effort. 2-Substantial/Maximal Assistance-helper does MORE THAN HALF the effort. [place] lifts or holds trunk or limbs and provides more than half the effort. 7-Mlmrxpljp-iitrqc does ALL the effort. Patient does none of the effort to complete the activity. Or, the assistance of 2 or more helpers is required for the patient to complete the activity. If activity was not attempted, code reason: 7-Patient Refused. 9-Not Applicable-not attempted and the patient did not perform the activity before the current illness, exacerbation or injury. 10-Not Attempted due to Environmental Limitations-(lack of equipment, weather restraints, etc.). 88-Not Attempted due to Medical Conditions or Safety Concerns. Weight Bearing Right Lower Extremity: Right Full Weight Bearing Left Lower Extremity: Left Full Weight Bearing Treatments TF to standing and amb. to BR. Pt can complete pericare independently then wants to return to bed to rest. All needs met, call light in hand. Assessment Current Status: Good Progress Pt is sequencing better and able to complete tasks with fewer VC for safety. PT Short Term Goals Short Term Goals Time Frame: September 18, 2020 Roll Left & Right: 6 Sit to lyin Lying to sitting on side of be: 6 Sit to stand: 6 Chair/xbu-nt-pwxzl transfer: 6 PT Residential Goals Medical Delivery Driver Goals PT Residential Goals Time Frame: October 02, 2020 Roll Left & Right (QC): 6 Sit to Lying (QC): 6 Lying-Sitting on Side/Bed(QC): 6 Sit to Stand (QC): 6 Chair/Dsz-gm-Amfoc Xfer(QC): 6 Toilet Transfer (QC): 6 Car Transfer (QC): 6 Does the Patient Walk: Yes Walk 10 feet (QC): 6 Walk 50ft with 2 Turns (QC): 6 Walk 150 ft (QC): 6 Walking 10ft on Uneven Surface: 6 1 Step (curb) (QC): 6 4 Steps (QC): 6 12 Steps (QC): 6 Picking up an Object (QC): 6 Does the Pt use WC or Scooter?: No Wheel 50 feet with 2 turns (QC: 9 Type: N/A Wheel 150 feet: 9 Type: N/A PT Plan Problem List Problem List: Activity Tolerance Treatment/Plan Treatment Plan: Continue Plan of Care Treatment Plan: Bed Mobility, Education, Functional Activity Yolanda, Functional Strength, Group Therapy, Gait, Safety, Therapeutic Exercise, Transfers Treatment Duration: October 02, 2020 Frequency: At least 5 of 7 days/Wk (IRF) Estimated Hrs Per Day: 1.5 hours per day Patient and/or Family Agrees t: Yes Time/GCodes Time In: 1445 Time Out: 1500 Total Billed Treatment Time: 15 Total Billed Treatment 1, FA (15m) TAMRA LION PTA September 16, 2020 15:03
[2020-09-16 20:39] VITALS: BP 120/57
[2020-09-16] MEDS: rOPINIRole 0.25 MG (REQUIP) TAB PO SCH (21:36)
[2020-09-16] MEDS: SERTRALINE 100 MG (ZOLOFT) TAB PO SCH (21:36)
[2020-09-16] MEDS: MELATONIN 3 MG TABLET PO PRN (21:36)
[2020-09-16] MEDS: MONTELUKAST 10 MG (SINGULAIR) TAB PO SCH (21:36)
[2020-09-17] MEDS: RT--FLUTICASONE/SALMETEROL 232-14 (AIRDUO RespiCLICK) IH SCH ×2 (07:10→21:40)
[2020-09-17 08:00] VITALS: BP 126/59
--- NOTE | 2020-09-17 08:24 | Occupational Ther Daily Note ---
OT Current Status-Daily Note Subjective Pt agreeable to OT Tx, does not report any pain. ADL-Treatment Therapy Code Descriptions/Definitions Functional [place] Measure: 0=Not Assessed/NA 4=Minimal Assistance 1=Total Assistance 5=Supervision or Setup 2=Maximal Assistance 6=Modified [place] 3=Moderate Assistance 7=Complete IndependenceSCALE: Activities may be completed with or without assistive devices. 5-Qhtwgmzvnq-cbqblwg completes the activity by him/herself with no assistance fr om a helper. 5-Set-up or Clean-up Assistance-helper sets up or cleans up; patient completes activity. [place] assists only prior to or following the activity. 4-Supervision or Touching Assistance-helper provides verbal cues and/or touching/steadying and/or contact guard assistance as patient completes activity. Assistance may be provided throughout the activity or intermittently. 3-Partial/Moderate Assistance-helper does LESS THAN HALF the effort. [place] lifts, holds or supports trunk or limbs, but provides less than half the effort. 2-Substantial/Maximal Assistance-helper does MORE THAN HALF the effort. [place] lifts or holds trunk or limbs and provides more than half the effort. 2-Tavfzfkny-tofamf does ALL the effort. Patient does none of the effort to complete the activity. Or, the assistance of 2 or more helpers is required for the patient to complete the activity. If activity was not attempted, code reason: 7-Patient Refused. 9-Not Applicable-not attempted and the patient did not perform the activity before the current illness, exacerbation or injury. 10-Not Attempted due to Environmental Limitations-(lack of equipment, weather restraints, etc.). 88-Not Attempted due to Medical Conditions or Safety Concerns. Shower/Bathe Self (QC): 4 (supervision) Upper Body Dressing (QC): 5 (set up) Lower Body Dressing (QC): 4 (supervision) On/Off Footwear: 4 (SBA, requires verbal cue to don LLE sock completely, as pt only donned partway onto her foot.) Toileting Hygiene (QC): 4 (supervision) Toilet Transfer (QC): 4 (supervision) Other Treatment [id number]: Pt laying in bed, transferred supine to sit EOB. Pt performed functional mobility in her room in order to gather clothing from closet, cues with management of O2 tubing as pt walked with tubing between her legs. Pt transferred into bathroom and onto toilet, turning to where O2 tubing is wrapped around her legs, pt raised 1 leg at a time to move O2 tubing to front prior to sitting down. OT provided education to pt about turning based on where the O2 tubing is located in order to increase safety and decrease fall risk. Pt doffed clothing at toilet and completed toileting, then transferred into shower. Pt completed showering, dried off, then transferred to toilet to don clothing. Aft er donning bra, shirt and underwear, pt stood at sink to brush her teeth and complete oral care, then returned to toilet to don LE clothing. While donning socks, she only donned LLE sock chcf, requiring cue to don all the way and education on safety. Pt then used FWW to perform functional mobility to therapy gym. In order to increase BUE strength and activity tolerance, pt completed arm bike x15 mins, min resistance. [id number] OT/PT cotreat due to skill of 2 clinicians required which a cardiac rehab nurse could not perform in order to coordinate UE/LEs, decrease fall risk, improve safety awareness with O2 tubing and due to pt's limitations in activity tolerance and strength. OT focused on UE placement, cues for sequencing and safety and kitchen task while PT focused on LE placement, overall gross movement, and mobility/transfers. Pt completed functional kitchen task, locating various items throughout cabinets and drawers, seated rest break as needed. Pt required mod-max verbal cues in order to safely manipulate O2 tubing along [facility] FWW. Post tx, pt seated in chair with PT, all needs met Education OT Patient Education: Correct positioning, Energy conservation, Modified ADL techniques, Progress toward Goal/Update tx plan, Purpose of tx/functional activities, Rehab process Teaching Recipient: Patient Teaching Methods: Discussion Response to Teaching: Verbalize Understanding OT Short Term Goals Short Term Goals Time Frame: September 24, 2020 Shower/bathe self: 5 Upper body dressin Lower body dressin Putting on/taking off footwear: 5 OT Licensed Staff Mft Goals Licensed Staff Mft Goals Time Frame: Oct 08, 2020 Eating (QC): 6 Oral Hygiene (QC): 6 Toileting Hygiene (QC): 6 Shower/Bathe Self (QC): 6 Upper Body Dressing (QC): 6 Lower Body Dressing (QC): 6 On/Off Footwear (QC): 6 Additional Goals: 1-Demonstrate ADL Tasks, 2-Verbalize Understanding, 3- ImproveStrength/Yolanda 1=Demonstrate adherence to instructed precautions during ADL tasks. 2=Patient will verbalize/demonstrate understanding of assistive devices/modifications for ADL. 3=Patient will improve strength/tolerance for activity to enable patient to perform ADL's. OT Education/Plan Problem List/Assessment Assessment: Decreased Activ Tolerance, Decreased Safety Aware, Decreased UE Strength, Impaired Funct Balance, Impaired I ADL's, Impaired Self-Care Skills Discharge Recommendations Plan/Recommendations: Continue POC Treatment Plan/Plan of Care Patient would benefit from OT for education, treatment and training to promote independence in ADL's, mobility, safety and/or upper extremity function for ADL's. Plan of Care: ADL Retraining, Functional Mobility, Group Exercise/Act as Ind, UE Funct Exercise/Act Treatment Duration: September 13, 2020 Frequency: At least 5 of 7 days/Wk (IRF) Estimated Hrs Per Day: 1.5 hours per day Agreement: Yes Rehab Potential: Good Time/GCodes Start Time: 08:00 Stop Time: 09:15 Total Time Billed (hr/min): 75 Billed Treatment Time 1, ADL 3 (45'), EX (15'), FA (15') ANYA CARBALLO OT September 17, 2020 08:24
[2020-09-17] MEDS: LORATADINE (CLARITIN) 10 MG TAB PO SCH (09:13)
[2020-09-17] MEDS: VITAMIN D3 25 MCG (1,000 UNITS) TABLET PO SCH (09:13)
[2020-09-17] MEDS: FAMOTIDINE 20 MG (PEPCID) TABLET PO SCH (09:14)
[2020-09-17] MEDS: LEVOTHYROXINE 75 MCG (LEVOTHROID) TABLET PO SCH (09:14)
[2020-09-17] MEDS: SINEMET CR 50/200 (CARBIDOPA/LEVODOPA SA) TAB PO SCH ×3 (09:14→21:25)
--- NOTE | 2020-09-17 09:20 | Speech Therapy Daily Note ---
Speech Daily Progress Note Subjective Date Seen by Provider: September 17, 2020 Time Seen by Provider: 00:30 Pt was laying in bed and fell asleep multiple times throughout the session. Objective Patient completed sequencing tasks related to daily living at 80% with moderate cues. Assessment Assessment Current Status: Good Progress Treatment Plan Continue Plan of Care Speech Short Term Goals Short Term Goals Short Term Goals 1) Patient will complete sequencing tasks related to daily living at 80% or greater with minimal cues. 2) Patient will complete simple multiple step following directions tasks related to daily living at 80% or greater with minimal cues. Speech Residential Goals Residential Goals Patient will improve independence of daily living tasks with minimal assistance. Speech-Plan Patient/Family Goals Patient/Family Goals: Pt's family plans to find help to assist the pt. in her daily care needs. Treatment Plan Speech Therapy Treatment Plan: Continue Plan of Care Treatment Duration: September 24, 2020 Frequency: 4 times per week (Patient will receive skilled ST 4-5x per week) Estimated Hrs Per Day: .5 hour per day Rehab Potential: Good Barriers to Learning: Medical status and age. Pt/Family Agrees to Plan: Yes Safety Risks/Education Teaching Recipient: Patient Teaching Methods: Demonstration, Discussion Response to Teaching: Verbalize Understanding, Return Demonstration, Reinforcement Needed Education Topics Provided: Safety awareness and sequencing. Time Speech Therapy Time In: 10:30 Speech Therapy Time Out: 11:00 Total Billed Time: 30 Billed Treatment Time 1WANDA BETHAN[address] ST September 17, 2020 09:20
--- NOTE | 2020-09-17 09:39 | Progress Note ---
Subjective Date Seen by a Provider: September 17, 2020 Time Seen by a Provider: 09:37 Subjective/Events-last exam Fwup Acute Right Sided Hemorrhagic Stoke, HTN, COPD, Hypothyroidism, Cephalgia. Ongoing low grade DILLON at level 1-2. Objective Exam Vital Signs Date Time Temp Pulse Resp B/P (MAP) Pulse Ox O2 Delivery O2 Flow Rate FiO2 09/17/20 09:00 Nasal Cannula 2.00 09/17/20 08:00 36.4 75 16 126/59 (81) 97 Nasal Cannula 2.00 09/16/20 21:10 94 Nasal Cannula 2.00 09/16/20 21:00 Nasal Cannula 2.00 09/16/20 20:39 36.9 85 18 120/57 (78) 98 Nasal Cannula 2.00 Capillary Refill : General Appearance: No Apparent Distress Neck: Supple Respiratory: Lungs Clear, Decreased Breath Sounds Cardiovascular: Regular Rate, Rhythm Gastrointestinal: normal bowel sounds, non tender, soft Extremity: Non Tender, No Calf Tenderness, No Pedal Edema Neurologic/Psychiatric: Alert, Oriented x3 Assessment/Plan Assessment/Plan Assess & Plan/Chief Complaint 1. Acute Right Sided Hemorrhagic Stoke--plan is to repeat scan 2 weeks from discharge from [facility] and restart aspirin if improved/resolved, continue PT/OT/ST, sent neurology referral to [facility] for outpatient fwup 2. HTN--stable 3. COPD--stable 4. Depression with impulse control--increased sertraline dose Clinical Quality Measures Admission Status Admission Dx 1. Acute Right Sided Hemorrhagic Stoke with ongoing cephalgia, possible peripheral vision loss and some impulsivity per nursing--PT/OT and ST 2. Hypertension--stable 3. COPD--oxygen dependant 4. Hypothyroidism--stable, back on home dose 5. Previous Ischemic CVA with encephalomalacia present DVT/VTE Risk/Contraindication: Contraindications-Pharm: Other *list below* Other: hemorrhagic cva AMEYA PEREZ DO September 17, 2020 09:39
--- NOTE | 2020-09-17 09:55 | Physical Therapy Daily Note ---
PT Daily Note-Current Subjective Pt. agrees to Rx but asks for rest breaks frequently because she just doesnt feel well today. Pt. states she has a "low grade headache " she has had for several days . Rates 3/10, Pain Numeric Pain Scale: 3 Location: Medial Location Body Site: Head Pain Description: Ache Appearance keeps eyes closed and asks to lay down or stop to rest frequently Mental Status Patient Orientation: Person, Place Attachments: Oxygen, Other-See Comments (mask) Transfers SCALE: Activities may be completed with or without assistive devices. 1-Nbdukvgypv-noowvoq completes the activity by him/herself with no assistance from a helper. 5-Set-up or Clean-up Assistance-helper sets up or cleans up; patient completes activity. [place] assists only prior to or following the activity. 4-Supervision or Touching Assistance-helper provides verbal cues and/or touching/steadying and/or contact guard assistance as patient completes activity. Assistance may be provided throughout the activity or intermittently. 3-Partial/Moderate Assistance-helper does LESS THAN HALF the effort. [place] lifts, holds or supports trunk or limbs, but provides less than half the effort. 2-Substantial/Maximal Assistance-helper does MORE THAN HALF the effort. [place] lifts or holds trunk or limbs and provides more than half the effort. 1-Ypnkhcvop-grgpfg does ALL the effort. Patient does none of the effort to complete the activity. Or, the assistance of 2 or more helpers is required for the patient to complete the activity. If activity was not attempted, code reason: 7-Patient Refused. 9-Not Applicable-not attempted and the patient did not perform the activity before the current illness, exacerbation or injury. 10-Not Attempted due to Environmental Limitations-(lack of equipment, weather restraints, etc.). 88-Not Attempted due to Medical Conditions or Safety Concerns. Roll Left & Right (QC): 6 Sit to Lying (QC): 6 Lying to Sitting/Side of Bed(Q: 6 Sit to Stand (QC): 6 Chair/Ugn-wk-Dadvg Xfer(QC): 6 Toilet Transfer (QC): 6 Weight Bearing Right Lower Extremity: Right Full Weight Bearing Left Lower Extremity: Left Full Weight Bearing Gait Training Does the Patient Walk?: Yes Walk 10 feet (QC): 5 Walk 50 ft with 2 Turns(QC): 5 Walk 150 ft (QC): 5 Gait Persons Needed: 1 Gait Assistive Device: FWW pt. tends to want to be up without FWW and shares during PT OT co Rx that she feels the FWW makes gait with device more likely to get tangled up in FWW with O2 tubing. KARELY retested to see if gait without device might be appropriate to begin Exercises Seated Therapy Exercises: Ankle pumps, Sit to stand, Long arc quads, Hip flexion, Hip abd/add Seated Reps: 15 NuStep Minutes: 12 NuStep Workload: 3 Treatments leg presses on nustep x 15, KARELY begun for retest as pt. is in hopes she might be able to walk without device Assessment Current Status: Good Progress pt. with consistent c/o not feeling well today, Nursing was alerted , BP supine 131/61, HR 88, O2 sats steady on 2 L at 98%, seated BP 129/66, HR 91 PT Short Term Goals Short Term Goals Time Frame: September 18, 2020 Roll Left & Right: 6 Sit to lyin Lying to sitting on side of be: 6 Sit to stand: 6 Chair/fgu-mc-oiazs transfer: 6 PT Senior Care Goals Arabic Professor Goals PT Arabic Professor Goals Time Frame: October 02, 2020 Roll Left & Right (QC): 6 Sit to Lying (QC): 6 Lying-Sitting on Side/Bed(QC): 6 Sit to Stand (QC): 6 Chair/Vmo-yd-Oisyu Xfer(QC): 6 Toilet Transfer (QC): 6 Car Transfer (QC): 6 Does the Patient Walk: Yes Walk 10 feet (QC): 6 Walk 50ft with 2 Turns (QC): 6 Walk 150 ft (QC): 6 Walking 10ft on Uneven Surface: 6 1 Step (curb) (QC): 6 4 Steps (QC): 6 12 Steps (QC): 6 Picking up an Object (QC): 6 Does the Pt use WC or Scooter?: No Wheel 50 feet with 2 turns (QC: 9 Type: N/A Wheel 150 feet: 9 Type: N/A PT Plan Treatment/Plan Treatment Plan: Continue Plan of Care Treatment Plan: Bed Mobility, Education, Functional Activity Yolanda, Functional Strength, Group Therapy, Gait, Safety, Therapeutic Exercise, Transfers Treatment Duration: October 02, 2020 Frequency: At least 5 of 7 days/Wk (IRF) Estimated Hrs Per Day: 1.5 hours per day Patient and/or Family Agrees t: Yes Safety Risks/Education Patient Education: Gait Training, Transfer Techniques, Correct Positioning, Disease Process, Safety Issues Teaching Recipient: Patient Teaching Methods: Demonstration, Discussion Response to Teaching: Verbalize Understanding, Return Demonstration, Reinforcement Needed Time/GCodes Time In: 900 Time Out: 1000 Total Billed Treatment Time: 60 Total Billed Treatment 1,NM25m,GT15m,EX20m LIDA SARAVIA [employer] September 17, 2020 09:55
--- NOTE | 2020-09-17 10:44 | PM&R Progress Note ---
Subjective HPI/CC On Admission Date Seen by Provider: September 17, 2020 Time Seen by Provider: 11:00 Subjective/Events-last exam 09/17/20: Patient doing well Headache so PCP placed her on Tramdol No falls Impulsive 09/16/20: Patient doing well Laxatives held due to loose stools No major issues 09/15/20: Patient doing well Impulsive Alarms on chair and bed Patient is DNR so that order placed BM+ 09/14/20: Pt doing pretty well Bed alarm for impulsiveness Pt up to the bathroom this morning with help, but there is some vision loss making it a fall risk Bowels moved yesterday 09/13/20: Patient doing really well No major issues Bowels move 2 days ago Oxygen is 24/7 09/12/20: Patient doing well Has a DILLON and APAP given No other pain Peripheral vision loss noted PCP visited her today Checked meds and labs BP ok Review of Systems General: Fatigue, Malaise Objective Exam Vital Signs Vital Signs Date Time Temp Pulse Resp B/P (MAP) Pulse Ox O2 Delivery O2 Flow Rate FiO2 09/17/20 21:41 98 Nasal Cannula 1.00 09/17/20 20:17 36.2 77 18 110/53 (72) Capillary Refill : General Appearance: No Apparent Distress HEENT: PERRL/EOMI, Normal ENT Inspection, Pharynx Normal Neck: Supple Respiratory: Lungs Clear, Decreased Breath Sounds Cardiovascular: Regular Rate, Rhythm Gastrointestinal: Normal Bowel Sounds, No Organomegaly, No Pulsatile Mass, Non Tender, Soft Rectal: Deferred Back: Normal Inspection, No CVA Tenderness, No Vertebral Tenderness Extremity: Non Tender, No Calf Tenderness, No Pedal Edema Neurologic/Psychiatric: Alert, Oriented x3 Skin: Normal Color, Warm/Dry Lymphatic: No Adenopathy Results/Procedures Lab Patient resulted labs reviewed. FIM Transfers Therapy Code Descriptions/Definitions Functional [place] Measure: 0=Not Assessed/NA 4=Minimal Assistance 1=Total Assistance 5=Supervision or Setup 2=Maximal Assistance 6=Modified [place] 3=Moderate Assistance 7=Complete IndependenceSCALE: Activities may be completed with or without assistive devices. 3-Ulsfkhhmfq-pqvncee completes the activity by him/herself with no assistance from a helper. 5-Set-up or Clean-up Assistance-helper sets up or cleans up; patient completes activity. [place] assists only prior to or following the activity. 4-Supervision or Touching Assistance-helper provides verbal cues and/or touching/steadying and/or contact guard assistance as patient completes activity. Assistance may be provided throughout the activity or intermittently. 3-Partial/Moderate Assistance-helper does LESS THAN HALF the effort. [place] lifts, holds or supports trunk or limbs, but provides less than half the effort. 2-Substantial/Maximal Assistance-helper does MORE THAN HALF the effort. [place] lifts or holds trunk or limbs and provides more than half the effort. 1-Qurercxvw-dtsiqu does ALL the effort. Patient does none of the effort to c omplete the activity. Or, the assistance of 2 or more helpers is required for the patient to complete the activity. If activity was not attempted, code reason: 7-Patient Refused. 9-Not Applicable-not attempted and the patient did not perform the activity before the current illness, exacerbation or injury. 10-Not Attempted due to Environmental Limitations-(lack of equipment, weather restraints, etc.). 88-Not Attempted due to Medical Conditions or Safety Concerns. Roll Left to Right (QC): 6 Sit to Lying (QC): 6 Sit to Stand (QC): 6 Chair/Rdq-ld-Pzihx Xfer(QC): 6 Car Transfer (QC): 6 Gait Training Does the Patient Walk?: Yes Distance: 150' x2 Walk 10 feet (QC): 5 Walk 50 ft with 2 Turns(QC): 5 Walk 150 ft (QC): 5 Walking 10ft/uneven surface-QC: 4 Gait Persons Needed: 1 Gait Assistive Device: FWW Wheelchair Training Does the Pt Use a Wheelchair?: No Wheel 50 ft with 2 turns (QC): 9 Wheel 150 ft (QC): 9 Type of Wheelchair: N/A Stair Training Stair Training: Handrails/: 2 handrails #of Steps: 4 1 Step (curb) (QC): 4 4 Steps (QC): 4 12 Steps (QC): 88 Stairs: Pattern: Reciprocal Balance Picking up an Object (QC): 4 ADL-Treatment Eating (QC): 6 (IND) Oral Hygiene (QC): 4 (Supervision standing at sink) Shower/Bathe Self (QC): 4 (supervision) Upper Body Dressing (QC): 5 (set up) Lower Body Dressing (QC): 4 (supervision) On/Off Footwear (QC): 4 (SBA, requires verbal cue to don LLE sock completely, as pt only donned partway onto her foot.) Toileting Hygiene (QC): 4 (supervision) Toilet Transfer (QC): 4 (supervision) Assessment/Plan Assessment and Plan Assess & Plan/Chief Complaint Assessment: 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 COPD with 24/7 O2 dependence Former smoker HTN Falls Hypothyroidism Parkinson's disease Carotid stenosis HLP CVA ischemic type remotely in the past without residual Plan: IRF protocol Monitor closely Monitor BP Fall risk 09/12/20: DILLON management No issues otherwise 09/13/20: Monitor oxygen level Supportive care 09/14/20: Monitor closely O2 maintained IRF therapies 09/15/20: Monitor for falls Impulsiveness noted 09/16/20: Monitor closely DC laxatives 09/17/20: Monitor pain Fall risk (1) Hemorrhagic stroke Status: Acute (2) Parkinson disease (3) Falls (4) Carotid stenosis, bilateral (5) Oxygen dependent (6) Depression (7) Hypothyroidism (8) Hypertension (9) Former smoker (10) Diabetes (11) COPD (chronic obstructive pulmonary disease) Status: Acute JUN LOUIS DO September 17, 2020 10:44
--- NOTE | 2020-09-17 13:32 | Physical Therapy Daily Note ---
PT Daily Note-Current Subjective very slow to respond but agrees to Rx. Denies any pain or issues, just wants to sleep Pain Location: No Pain Reported Mental Status Attachments: Oxygen (2L ext tube) Transfers SCALE: Activities may be completed with or without assistive devices. 1-Vdlwtgemww-czlbezq completes the activity by him/herself with no assistance from a helper. 5-Set-up or Clean-up Assistance-helper sets up or cleans up; patient completes activity. Many assists only prior to or following the activity. 4-Supervision or Touching Assistance-helper provides verbal cues and/or touching/steadying and/or contact guard assistance as patient completes activity. Assistance may be provided throughout the activity or intermittently. 3-Partial/Moderate Assistance-helper does LESS THAN HALF the effort. Many lifts, holds or supports trunk or limbs, but provides less than half the effort. 2-Substantial/Maximal Assistance-helper does MORE THAN HALF the effort. Many lifts or holds trunk or limbs and provides more than half the effort. 3-Hnlkjtisl-mbtvle does ALL the effort. Patient does none of the effort to complete the activity. Or, the assistance of 2 or more helpers is required for the patient to complete the activity. If activity was not attempted, code reason: 7-Patient Refused. 9-Not Applicable-not attempted and the patient did not perform the activity before the current illness, exacerbation or injury. 10-Not Attempted due to Environmental Limitations-(lack of equipment, weather restraints, etc.). 88-Not Attempted due to Medical Conditions or Safety Concerns. all TRFs SBA Weight Bearing Right Lower Extremity: Right Full Weight Bearing Left Lower Extremity: Left Full Weight Bearing Gait Training Does the Patient Walk?: Yes Gait Assistive Device: FWW 35 ft x 2 in room with ext tubing with assist and cuing for safe use of FWW with O2 tubing, SBA to CGA Exercises Supine Ex: Bridging, Ankle pumps, Quad Set, Rolling, Glut sets, Heel Slides, Short Arc Quads, Scooting, Straight leg raise, Hip abd/add Supine Reps: 12 Treatments walked in to toilet, toileted indep Assessment Current Status: Good Progress fatigued, in bed after Rx, espino at hand PT Short Term Goals Short Term Goals Time Frame: September 18, 2020 Roll Left & Right: 6 Sit to lyin Lying to sitting on side of be: 6 Sit to stand: 6 Chair/cwm-si-xgqvi transfer: 6 PT Fpc Goals Web Consultant Goals PT Fpc Goals Time Frame: October 02, 2020 Roll Left & Right (QC): 6 Sit to Lying (QC): 6 Lying-Sitting on Side/Bed(QC): 6 Sit to Stand (QC): 6 Chair/Pss-lx-Cwibt Xfer(QC): 6 Toilet Transfer (QC): 6 Car Transfer (QC): 6 Does the Patient Walk: Yes Walk 10 feet (QC): 6 Walk 50ft with 2 Turns (QC): 6 Walk 150 ft (QC): 6 Walking 10ft on Uneven Surface: 6 1 Step (curb) (QC): 6 4 Steps (QC): 6 12 Steps (QC): 6 Picking up an Object (QC): 6 Does the Pt use WC or Scooter?: No Wheel 50 feet with 2 turns (QC: 9 Type: N/A Wheel 150 feet: 9 Type: N/A PT Plan Treatment/Plan Treatment Plan: Continue Plan of Care Treatment Plan: Bed Mobility, Education, Functional Activity Yolanda, Functional Strength, Group Therapy, Gait, Safety, Therapeutic Exercise, Transfers Treatment Duration: October 02, 2020 Frequency: At least 5 of 7 days/Wk (IRF) Estimated Hrs Per Day: 1.5 hours per day Patient and/or Family Agrees t: Yes Safety Risks/Education Patient Education: Gait Training, Transfer Techniques, Correct Positioning, Safety Issues Teaching Recipient: Patient Teaching Methods: Demonstration, Discussion Response to Teaching: Verbalize Understanding, Return Demonstration, Reinforcement Needed Time/GCodes Time In: 1315 Time Out: 1330 Total Billed Treatment Time: 15 Total Billed Treatment 1,EX15m LIDA SARAVIA FRAME CLEANER September 17, 2020 13:32
[2020-09-17 20:17] VITALS: BP 110/53
[2020-09-17] MEDS: MELATONIN 3 MG TABLET PO PRN (21:23)
[2020-09-17] MEDS: rOPINIRole 0.25 MG (REQUIP) TAB PO SCH (21:23)
[2020-09-17] MEDS: SERTRALINE 100 MG (ZOLOFT) TAB PO SCH (21:24)
[2020-09-17] MEDS: MONTELUKAST 10 MG (SINGULAIR) TAB PO SCH (21:24)
[2020-09-18] MEDS: RT--FLUTICASONE/SALMETEROL 232-14 (AIRDUO RespiCLICK) IH SCH ×2 (07:25→19:03)
[2020-09-18 07:30] VITALS: BP 124/61
[2020-09-18] MEDS: VITAMIN D3 25 MCG (1,000 UNITS) TABLET PO SCH (10:05)
[2020-09-18] MEDS: FAMOTIDINE 20 MG (PEPCID) TABLET PO SCH (10:06)
[2020-09-18] MEDS: LORATADINE (CLARITIN) 10 MG TAB PO SCH (10:06)
[2020-09-18] MEDS: LEVOTHYROXINE 75 MCG (LEVOTHROID) TABLET PO SCH (10:08)
[2020-09-18] MEDS: SINEMET CR 50/200 (CARBIDOPA/LEVODOPA SA) TAB PO SCH ×3 (10:09→21:05)
--- NOTE | 2020-09-18 11:54 | Physical Therapy Daily Note ---
PT Daily Note-Current Subjective Pt denies pain. Pt laying across bed with legs off of edge of bed asleep upon arrival. Pt able to awaken easily and sit up mod (I). Pt ready for therapy. Pt request BR privileges Transfers SCALE: Activities may be completed with or without assistive devices. 6-Oxgljoggwx-svrkryy completes the activity by him/herself with no assistance from a helper. 5-Set-up or Clean-up Assistance-helper sets up or cleans up; patient completes activity. [place] assists only prior to or following the activity. 4-Supervision or Touching Assistance-helper provides verbal cues and/or touching/steadying and/or contact guard assistance as patient completes activity. Assistance may be provided throughout the activity or intermittently. 3-Partial/Moderate Assistance-helper does LESS THAN HALF the effort. [place] lifts, holds or supports trunk or limbs, but provides less than half the effort. 2-Substantial/Maximal Assistance-helper does MORE THAN HALF the effort. [place] lifts or holds trunk or limbs and provides more than half the effort. 4-Uciqdopbm-kvmwux does ALL the effort. Patient does none of the effort to complete the activity. Or, the assistance of 2 or more helpers is required for the patient to complete the activity. If activity was not attempted, code reason: 7-Patient Refused. 9-Not Applicable-not attempted and the patient did not perform the activity before the current illness, exacerbation or injury. 10-Not Attempted due to Environmental Limitations-(lack of equipment, weather restraints, etc.). 88-Not Attempted due to Medical Conditions or Safety Concerns. Weight Bearing Right Lower Extremity: Right Full Weight Bearing Left Lower Extremity: Left Full Weight Bearing Gait Training Gait Assistive Device: FWW Pt amb with FWW to BR, Mod (I) BR use. Pt on O2 2L/min and amb with CGA x 215ft at steady speed. Pt back to bed with call light and all needs met. Nurse present following therapy. Assessment Current Status: Good Progress Pt showing mod (I) with all functional mobility. Pt resting in bed post therapy in care of nurse. PT Short Term Goals Short Term Goals Time Frame: September 18, 2020 Roll Left & Right: 6 Sit to lyin Lying to sitting on side of be: 6 Sit to stand: 6 Chair/fea-rk-pmizf transfer: 6 PT Structural Iron Erector Goals Structural Iron Erector Goals PT Structural Iron Erector Goals Time Frame: October 02, 2020 Roll Left & Right (QC): 6 Sit to Lying (QC): 6 Lying-Sitting on Side/Bed(QC): 6 Sit to Stand (QC): 6 Chair/Jzc-jk-Tepvs Xfer(QC): 6 Toilet Transfer (QC): 6 Car Transfer (QC): 6 Does the Patient Walk: Yes Walk 10 feet (QC): 6 Walk 50ft with 2 Turns (QC): 6 Walk 150 ft (QC): 6 Walking 10ft on Uneven Surface: 6 1 Step (curb) (QC): 6 4 Steps (QC): 6 12 Steps (QC): 6 Picking up an Object (QC): 6 Does the Pt use WC or Scooter?: No Wheel 50 feet with 2 turns (QC: 9 Type: N/A Wheel 150 feet: 9 Type: N/A PT Plan Treatment/Plan Treatment Plan: Continue Plan of Care Treatment Plan: Bed Mobility, Education, Functional Activity Yolanda, Functional Strength, Group Therapy, Gait, Safety, Therapeutic Exercise, Transfers Treatment Duration: October 02, 2020 Frequency: At least 5 of 7 days/Wk (IRF) Estimated Hrs Per Day: 1.5 hours per day Patient and/or Family Agrees t: Yes Time/GCodes Time In: 950 Time Out: 1000 Total Billed Treatment Time: 10 Total Billed Treatment 1, Gt x 15' DEREK FONSECA CPTA September 18, 2020 11:54
--- NOTE | 2020-09-18 12:41 | PM&R Progress Note ---
Subjective HPI/CC On Admission Date Seen by Provider: September 18, 2020 Time Seen by Provider: 12:45 Subjective/Events-last exam 09/18/20: Patient doing well DILLON improved No falls Ultram helps with DILLON 09/17/20: Patient doing well Headache so PCP placed her on Tramdol No falls Impulsive 09/16/20: Patient doing well Laxatives held due to loose stools No major issues 09/15/20: Patient doing well Impulsive Alarms on chair and bed Patient is DNR so that order placed BM+ 09/14/20: Pt doing pretty well Bed alarm for impulsiveness Pt up to the bathroom this morning with help, but there is some vision loss making it a fall risk Bowels moved yesterday 09/13/20: Patient doing really well No major issues Bowels move 2 days ago Oxygen is 24/7 09/12/20: Patient doing well Has a DILLON and APAP given No other pain Peripheral vision loss noted PCP visited her today Checked meds and labs BP ok Review of Systems General: Fatigue Neurological: Weakness Objective Exam Vital Signs Vital Signs Date Time Temp Pulse Resp B/P (MAP) Pulse Ox O2 Delivery O2 Flow Rate FiO2 09/18/20 09:00 Nasal Cannula 2.00 09/18/20 07:30 37.0 82 18 124/61 (82) 94 Capillary Refill : General Appearance: No Apparent Distress HEENT: PERRL/EOMI, Normal ENT Inspection, Pharynx Normal Neck: Supple Respiratory: Lungs Clear, Decreased Breath Sounds Cardiovascular: Regular Rate, Rhythm Gastrointestinal: Normal Bowel Sounds, No Organomegaly, No Pulsatile Mass, Non Tender, Soft Rectal: Deferred Back: Normal Inspection, No CVA Tenderness, No Vertebral Tenderness Extremity: Non Tender, No Calf Tenderness, No Pedal Edema Neurologic/Psychiatric: Alert, Oriented x3 Skin: Normal Color, Warm/Dry Lymphatic: No Adenopathy Results/Procedures Lab Patient resulted labs reviewed. FIM Transfers Therapy Code Descriptions/Definitions Functional [place] Measure: 0=Not Assessed/NA 4=Minimal Assistance 1=Total Assistance 5=Supervision or Setup 2=Maximal Assistance 6=Modified [place] 3=Moderate Assistance 7=Complete IndependenceSCALE: Activities may be completed with or without assistive devices. 1-Gvvglwzdhm-ylollvq completes the activity by him/herself with no assistance from a helper. 5-Set-up or Clean-up Assistance-helper sets up or cleans up; patient completes activity. [place] assists only prior to or following the activity. 4-Supervision or Touching Assistance-helper provides verbal cues and/or touching/steadying and/or contact guard assistance as patient completes activity. Assistance may be provided throughout the activity or intermittently. 3-Partial/Moderate Assistance-helper does LESS THAN HALF the effort. [place] lifts, holds or supports trunk or limbs, but provides less than half the effort. 2-Substantial/Maximal Assistance-helper does MORE THAN HALF the effort. [place] lifts or holds trunk or limbs and provides more than half the effort. 9-Mtsclwxvb-lgrrke does ALL the effort. Patient does none of the effort to complete the activity. Or, the assistance of 2 or more helpers is required for the patient to complete the activity. If activity was not attempted, code reason: 7-Patient Refused. 9-Not Applicable-not attempted and the patient did not perform the activity before the current illness, exacerbation or injury. 10-Not Attempted due to Environmental Limitations-(lack of equipment, weather restraints, etc.). 88-Not Attempted due to Medical Conditions or Safety Concerns. Roll Left to Right (QC): 6 Sit to Lying (QC): 6 Sit to Stand (QC): 6 Chair/Pgg-dt-Ytksp Xfer(QC): 6 Car Transfer (QC): 6 Gait Training Does the Patient Walk?: Yes Distance: 150' x2 Walk 10 feet (QC): 5 Walk 50 ft with 2 Turns(QC): 5 Walk 150 ft (QC): 5 Walking 10ft/uneven surface-QC: 4 Gait Persons Needed: 1 Gait Assistive Device: FWW Wheelchair Training Does the Pt Use a Wheelchair?: No Wheel 50 ft with 2 turns (QC): 9 Wheel 150 ft (QC): 9 Type of Wheelchair: N/A Stair Training Stair Training: Handrails/: 2 handrails #of Steps: 4 1 Step (curb) (QC): 4 4 Steps (QC): 4 12 Steps (QC): 88 Stairs: Pattern: Reciprocal Balance Picking up an Object (QC): 4 ADL-Treatment Eating (QC): 6 (IND) Oral Hygiene (QC): 4 (Supervision standing at sink) Shower/Bathe Self (QC): 4 (supervision) Upper Body Dressing (QC): 5 (set up) Lower Body Dressing (QC): 4 (supervision) On/Off Footwear (QC): 4 (SBA, requires verbal cue to don LLE sock completely, as pt only donned partway onto her foot.) Toileting Hygiene (QC): 4 (supervision) Toilet Transfer (QC): 4 (supervision) Assessment/Plan Assessment and Plan Assess & Plan/Chief Complaint Assessment: 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 COPD with 24/7 O2 dependence Former smoker HTN Falls Hypothyroidism Parkinson's disease Carotid stenosis HLP CVA ischemic type remotely in the past without residual Plan: IRF protocol Monitor closely Monitor BP Fall risk 09/12/20: DILLON management No issues otherwise 09/13/20: Monitor oxygen level Supportive care 09/14/20: Monitor closely O2 maintained IRF therapies 09/15/20: Monitor for falls Impulsiveness noted 09/16/20: Monitor closely DC laxatives 09/17/20: Monitor pain Fall risk 09/18/20: Monitor DILLON (1) Hemorrhagic stroke Status: Acute (2) Parkinson disease (3) Falls (4) Carotid stenosis, bilateral (5) Oxygen dependent (6) Depression (7) Hypothyroidism (8) Hypertension (9) Former smoker (10) Diabetes (11) COPD (chronic obstructive pulmonary disease) Status: Acute JUN LOUIS DO September 18, 2020 12:41
[2020-09-18 19:39] VITALS: BP 109/55
[2020-09-18] MEDS: SERTRALINE 100 MG (ZOLOFT) TAB PO SCH (21:02)
[2020-09-18] MEDS: MONTELUKAST 10 MG (SINGULAIR) TAB PO SCH (21:02)
[2020-09-18] MEDS: MELATONIN 3 MG TABLET PO PRN (21:03)
[2020-09-18] MEDS: rOPINIRole 0.25 MG (REQUIP) TAB PO SCH (21:03)
[2020-09-19 07:30] VITALS: BP 122/60
[2020-09-19] MEDS: LEVOTHYROXINE 75 MCG (LEVOTHROID) TABLET PO SCH (08:29)
[2020-09-19] MEDS: LORATADINE (CLARITIN) 10 MG TAB PO SCH (08:29)
[2020-09-19] MEDS: VITAMIN D3 25 MCG (1,000 UNITS) TABLET PO SCH (08:29)
[2020-09-19] MEDS: FAMOTIDINE 20 MG (PEPCID) TABLET PO SCH (08:29)
[2020-09-19] MEDS: SINEMET CR 50/200 (CARBIDOPA/LEVODOPA SA) TAB PO SCH ×3 (08:29→21:21)
[2020-09-19] MEDS: RT--FLUTICASONE/SALMETEROL 232-14 (AIRDUO RespiCLICK) IH SCH ×2 (10:09→18:55)
--- NOTE | 2020-09-19 12:09 | PM&R Progress Note ---
Subjective HPI/CC On Admission Date Seen by Provider: September 19, 2020 Time Seen by Provider: 12:15 Subjective/Events-last exam 09/19/20: Patient doing well No DILLON Tramadol used No falls 09/18/20: Patient doing well DILLON improved No falls Ultram helps with DILLON 09/17/20: Patient doing well Headache so PCP placed her on Tramdol No falls Impulsive 09/16/20: Patient doing well Laxatives held due to loose stools No major issues 09/15/20: Patient doing well Impulsive Alarms on chair and bed Patient is DNR so that order placed BM+ 09/14/20: Pt doing pretty well Bed alarm for impulsiveness Pt up to the bathroom this morning with help, but there is some vision loss making it a fall risk Bowels moved yesterday 09/13/20: Patient doing really well No major issues Bowels move 2 days ago Oxygen is 24/7 09/12/20: Patient doing well Has a DILLON and APAP given No other pain Peripheral vision loss noted PCP visited her today Checked meds and labs BP ok Review of Systems General: Fatigue Pulmonary: Dyspnea Objective Exam Vital Signs Vital Signs Date Time Temp Pulse Resp B/P (MAP) Pulse Ox O2 Delivery O2 Flow Rate FiO2 09/19/20 19:27 37.1 78 18 109/58 (75) 97 Nasal Cannula 2.00 Capillary Refill : General Appearance: No Apparent Distress HEENT: PERRL/EOMI, Normal ENT Inspection, Pharynx Normal Neck: Supple Respiratory: Lungs Clear, Decreased Breath Sounds Cardiovascular: Regular Rate, Rhythm Gastrointestinal: Normal Bowel Sounds, No Organomegaly, No Pulsatile Mass, Non Tender, Soft Rectal: Deferred Back: Normal Inspection, No CVA Tenderness, No Vertebral Tenderness Extremity: Non Tender, No Calf Tenderness, No Pedal Edema Neurologic/Psychiatric: Alert, Oriented x3 Skin: Normal Color, Warm/Dry Lymphatic: No Adenopathy Results/Procedures Lab Patient resulted labs reviewed. FIM Transfers Therapy Code Descriptions/Definitions Functional [place] Measure: 0=Not Assessed/NA 4=Minimal Assistance 1=Total Assistance 5=Supervision or Setup 2=Maximal Assistance 6=Modified [place] 3=Moderate Assistance 7=Complete IndependenceSCALE: Activities may be completed with or without assistive devices. 3-Qyvbqxjqlm-gvhhpaw completes the activity by him/herself with no assistance from a helper. 5-Set-up or Clean-up Assistance-helper sets up or cleans up; patient completes activity. [place] assists only prior to or following the activity. 4-Supervision or Touching Assistance-helper provides verbal cues and/or touching/steadying and/or contact guard assistance as patient completes activity. Assistance may be provided throughout the activity or intermittently. 3-Partial/Moderate Assistance-helper does LESS THAN HALF the effort. [place] lifts, holds or supports trunk or limbs, but provides less than half the effort. 2-Substantial/Maximal Assistance-helper does MORE THAN HALF the effort. [place] lifts or holds trunk or limbs and provides more than half the effort. 0-Youjlvfwi-pgknpr does ALL the effort. Patient does none of the effort to complete the activity. Or, the assistance of 2 or more helpers is required for the patient to complete the activity. If activity was not attempted, code reason: 7-Patient Refused. 9-Not Applicable-not attempted and the patient did not perform the activity before the current illness, exacerbation or injury. 10-Not Attempted due to Environmental Limitations-(lack of equipment, weather restraints, etc.). 88-Not Attempted due to Medical Conditions or Safety Concerns. Roll Left to Right (QC): 6 Sit to Lying (QC): 6 Sit to Stand (QC): 6 Chair/Gbg-rm-Outdq Xfer(QC): 6 Car Transfer (QC): 6 Gait Training Does the Patient Walk?: Yes Distance: 150' x2 Walk 10 feet (QC): 5 Walk 50 ft with 2 Turns(QC): 5 Walk 150 ft (QC): 5 Walking 10ft/uneven surface-QC: 4 Gait Persons Needed: 1 Gait Assistive Device: FWW Wheelchair Training Does the Pt Use a Wheelchair?: No Wheel 50 ft with 2 turns (QC): 9 Wheel 150 ft (QC): 9 Type of Wheelchair: N/A Stair Training Stair Training: Handrails/: 2 handrails #of Steps: 4 1 Step (curb) (QC): 4 4 Steps (QC): 4 12 Steps (QC): 88 Stairs: Pattern: Reciprocal Balance Picking up an Object (QC): 4 ADL-Treatment Eating (QC): 6 (IND) Oral Hygiene (QC): 4 (Supervision standing at sink) Shower/Bathe Self (QC): 4 (supervision) Upper Body Dressing (QC): 5 (set up) Lower Body Dressing (QC): 4 (supervision) On/Off Footwear (QC): 4 (SBA, requires verbal cue to don LLE sock completely, as pt only donned partway onto her foot.) Toileting Hygiene (QC): 4 (supervision) Toilet Transfer (QC): 4 (supervision) Assessment/Plan Assessment and Plan Assess & Plan/Chief Complaint Assessment: 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 COPD with 24/7 O2 dependence Former smoker HTN Falls Hypothyroidism Parkinson's disease Carotid stenosis HLP CVA ischemic type remotely in the past without residual Plan: IRF protocol Monitor closely Monitor BP Fall risk 09/12/20: DILLON management No issues otherwise 09/13/20: Monitor oxygen level Supportive care 09/14/20: Monitor closely O2 maintained IRF therapies 09/15/20: Monitor for falls Impulsiveness noted 09/16/20: Monitor closely DC laxatives 09/17/20: Monitor pain Fall risk 09/18/20: Monitor DILLON 09/19/20: Monitor BP Pain control (1) Hemorrhagic stroke Status: Acute (2) Parkinson disease (3) Falls (4) Carotid stenosis, bilateral (5) Oxygen dependent (6) Depression (7) Hypothyroidism (8) Hypertension (9) Former smoker (10) Diabetes (11) COPD (chronic obstructive pulmonary disease) Status: Acute JUN LOUIS DO September 19, 2020 12:09
[2020-09-19 19:27] VITALS: BP 109/58
[2020-09-19] MEDS: MONTELUKAST 10 MG (SINGULAIR) TAB PO SCH (21:17)
[2020-09-19] MEDS: SERTRALINE 100 MG (ZOLOFT) TAB PO SCH (21:17)
[2020-09-19] MEDS: DOCUSATE SODIUM 100 MG (COLACE) CAP PO PRN (21:17)
[2020-09-19] MEDS: rOPINIRole 0.25 MG (REQUIP) TAB PO SCH (21:18)
[2020-09-19] MEDS: MELATONIN 3 MG TABLET PO PRN (21:18)
[2020-09-20 06:09] LABS: BASOPHILS # (AUTO) 0.1 10^3/uL (0.0-0.1); BASOPHILS % (AUTO) 1 % (0-10); EOSINOPHILS # (AUTO) 0.2 10^3/uL (0.0-0.3); EOSINOPHILS % (AUTO) 2 % (0-10); HEMATOCRIT 38 % (35-52); HEMOGLOBIN 12.9 g/dL (11.5-16.0); LYMPHOCYTES # (AUTO) 1.8 10^3/uL (1.0-4.0); LYMPHOCYTES % (AUTO) 18 % (12-44); MEAN CORPUSCULAR HEMOGLOBIN 32 pg (25-34); MEAN CORPUSCULAR HGB CONC 34 g/dL (32-36); MEAN CORPUSCULAR VOLUME 94 fL (80-99); MEAN PLATELET VOLUME 9.8 fL (9.0-12.2); MONOCYTES # (AUTO) 0.8 10^3/uL (0.0-1.0); MONOCYTES % (AUTO) 8 % (0-12); NEUTROPHILS # (AUTO) 6.9 10^3/uL (1.8-7.8); NEUTROPHILS % (AUTO) 70 % (42-75); PLATELET COUNT 286 10^3/uL (130-400); WHITE BLOOD COUNT 9.9 10^3/uL (4.3-11.0)
[2020-09-20 06:18] LABS: ALBUMIN 3.8 GM/DL (3.2-4.5); CHLORIDE 98 MMOL/L (98-107); SODIUM 135 MMOL/L (135-145)
[2020-09-20 06:19] LABS: CALCIUM 8.6 MG/DL (8.5-10.1)
[2020-09-20 06:20] LABS: GLUCOSE 118 MG/DL (70-105); TOTAL PROTEIN 6.5 GM/DL (6.4-8.2)
[2020-09-20 06:21] LABS: CARBON DIOXIDE 28 MMOL/L (21-32)
[2020-09-20 06:22] LABS: BILIRUBIN,TOTAL 0.8 MG/DL (0.1-1.0)
[2020-09-20 06:23] LABS: ALKALINE PHOSPHATASE 72 U/L (40-136)
[2020-09-20 06:24] LABS: CREATININE SERUM 0.77 MG/DL (0.60-1.30); GFR ESTIMATED > 60
[2020-09-20 06:25] LABS: BUN/CREATININE RATIO 14
[2020-09-20 06:27] LABS: ALANINE AMINOTRANSFERASE 13 U/L (0-55)
--- NOTE | 2020-09-20 07:19 | PM&R Progress Note ---
Subjective HPI/CC On Admission Date Seen by Provider: September 20, 2020 Time Seen by Provider: 08:30 Subjective/Events-last exam 09/20/20: Pt ready for discharge on Sunday Labs looks good S/p bowel movement but laxatives will be given too No issues 09/19/20: Patient doing well No DILLON Tramadol used No falls 09/18/20: Patient doing well DILLON improved No falls Ultram helps with DILLON 09/17/20: Patient doing well Headache so PCP placed her on Tramdol No falls Impulsive 09/16/20: Patient doing well Laxatives held due to loose stools No major issues 09/15/20: Patient doing well Impulsive Alarms on chair and bed Patient is DNR so that order placed BM+ 09/14/20: Pt doing pretty well Bed alarm for impulsiveness Pt up to the bathroom this morning with help, but there is some vision loss making it a fall risk Bowels moved yesterday 09/13/20: Patient doing really well No major issues Bowels move 2 days ago Oxygen is 24/7 09/12/20: Patient doing well Has a DILLON and APAP given No other pain Peripheral vision loss noted PCP visited her today Checked meds and labs BP ok Review of Systems General: Fatigue, Malaise Neurological: Weakness Objective Exam Vital Signs Vital Signs Date Time Temp Pulse Resp B/P (MAP) Pulse Ox O2 Delivery O2 Flow Rate FiO2 09/20/20 21:00 Nasal Cannula 2.00 09/20/20 20:00 36.8 86 20 122/56 (78) 96 Capillary Refill : General Appearance: No Apparent Distress HEENT: PERRL/EOMI, Normal ENT Inspection, Pharynx Normal Neck: Supple Respiratory: Lungs Clear, Decreased Breath Sounds Cardiovascular: Regular Rate, Rhythm Gastrointestinal: Normal Bowel Sounds, No Organomegaly, No Pulsatile Mass, Non Tender, Soft Rectal: Deferred Back: Normal Inspection, No CVA Tenderness, No Vertebral Tenderness Extremity: Non Tender, No Calf Tenderness, No Pedal Edema Neurologic/Psychiatric: Alert, Oriented x3 Skin: Normal Color, Warm/Dry Lymphatic: No Adenopathy Results/Procedures Lab Laboratory Tests 09/20/20 06:00 Patient resulted labs reviewed. FIM Transfers Therapy Code Descriptions/Definitions Functional [place] Measure: 0=Not Assessed/NA 4=Minimal Assistance 1=Total Assistance 5=Supervision or Setup 2=Maximal Assistance 6=Modified [place] 3=Moderate Assistance 7=Complete IndependenceSCALE: Activities may be completed with or without assistive devices. 9-Bhzvscvzhy-zibxoil completes the activity by him/herself with no assistance from a helper. 5-Set-up or Clean-up Assistance-helper sets up or cleans up; patient completes activity. [place] assists only prior to or following the activity. 4-Supervision or Touching Assistance-helper provides verbal cues and/or touching/steadying and/or contact guard assistance as patient completes activity. Assistance may be provided throughout the activity or intermittently. 3-Partial/Moderate Assistance-helper does LESS THAN HALF the effort. [place] lifts, holds or supports trunk or limbs, but provides less than half the effort. 2-Substantial/Maximal Assistance-helper does MORE THAN HALF the effort. [place] lifts or holds trunk or limbs and provides more than half the effort. 4-Qdibwiooh-ynxvde does ALL the effort. Patient does none of the effort to complete the activity. Or, the assistance of 2 or more helpers is required for the patient to complete the activity. If activity was not attempted, code reason: 7-Patient Refused. 9-Not Applicable-not attempted and the patient did not perform the activity before the current illness, exacerbation or injury. 10-Not Attempted due to Environmental Limitations-(lack of equipment, weather restraints, etc.). 88-Not Attempted due to Medical Conditions or Safety Concerns. Roll Left to Right (QC): 6 Sit to Lying (QC): 6 Sit to Stand (QC): 6 Chair/Tzm-sr-Oooyp Xfer(QC): 6 Car Transfer (QC): 6 Gait Training Does the Patient Walk?: Yes Distance: 150' x2 Walk 10 feet (QC): 5 Walk 50 ft with 2 Turns(QC): 5 Walk 150 ft (QC): 5 Walking 10ft/uneven surface-QC: 4 Gait Persons Needed: 1 Gait Assistive Device: FWW Wheelchair Training Does the Pt Use a Wheelchair?: No Wheel 50 ft with 2 turns (QC): 9 Wheel 150 ft (QC): 9 Type of Wheelchair: N/A Stair Training Stair Training: Handrails/: 2 handrails #of Steps: 4 1 Step (curb) (QC): 4 4 Steps (QC): 4 12 Steps (QC): 88 Stairs: Pattern: Reciprocal Balance Picking up an Object (QC): 4 ADL-Treatment Eating (QC): 6 (IND) Oral Hygiene (QC): 4 (Supervision standing at sink) Shower/Bathe Self (QC): 4 (supervision) Upper Body Dressing (QC): 5 (set up) Lower Body Dressing (QC): 4 (supervision) On/Off Footwear (QC): 4 (SBA, requires verbal cue to don LLE sock completely, as pt only donned partway onto her foot.) Toileting Hygiene (QC): 4 (supervision) Toilet Transfer (QC): 4 (supervision) Assessment/Plan Assessment and Plan Assess & Plan/Chief Complaint Assessment: 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 COPD with 24/7 O2 dependence Former smoker HTN Falls Hypothyroidism Parkinson's disease Carotid stenosis HLP CVA ischemic type remotely in the past without residual Plan: IRF protocol Monitor closely Monitor BP Fall risk 09/12/20: DILLON management No issues otherwise 09/13/20: Monitor oxygen level Supportive care 09/14/20: Monitor closely O2 maintained IRF therapies 09/15/20: Monitor for falls Impulsiveness noted 09/16/20: Monitor closely DC laxatives 09/17/20: Monitor pain Fall risk 09/18/20: Monitor DILLON 09/19/20: Monitor BP Pain control 09/20/20: Monitor pain Fall risk (1) Hemorrhagic stroke Status: Acute (2) Parkinson disease (3) Falls (4) Carotid stenosis, bilateral (5) Oxygen dependent (6) Depression (7) Hypothyroidism (8) Hypertension (9) Former smoker (10) Diabetes (11) COPD (chronic obstructive pulmonary disease) Status: Acute JUN LOUIS DO September 20, 2020 07:19
[2020-09-20 08:00] VITALS: BP 124/75
--- NOTE | 2020-09-20 09:15 | Occupational Ther Daily Note ---
OT Current Status-Daily Note Subjective Pt laying in bed, agreeable to OT Tx. Denies headache at this time, no other pain Mental Status/Objective Patient Orientation: Person, Place, Situation Attachments: Oxygen ADL-Treatment Therapy Code Descriptions/Definitions Functional [place] Measure: 0=Not Assessed/NA 4=Minimal Assistance 1=Total Assistance 5=Supervision or Setup 2=Maximal Assistance 6=Modified [place] 3=Moderate Assistance 7=Complete IndependenceSCALE: Activities may be completed with or without assistive devices. 1-Vdkzixekiy-clhjjcb completes the activity by him/herself with no assistance from a helper. 5-Set-up or Clean-up Assistance-helper sets up or cleans up; patient completes activity. [place] assists only prior to or following the activity. 4-Supervision or Touching Assistance-helper provides verbal cues and/or touching/steadying and/or contact guard assistance as patient completes activity. Assistance may be provided throughout the activity or intermittently. 3-Partial/Moderate Assistance-helper does LESS THAN HALF the effort. [place] lifts, holds or supports trunk or limbs, but provides less than half the effort. 2-Substantial/Maximal Assistance-helper does MORE THAN HALF the effort. [place] lifts or holds trunk or limbs and provides more than half the effort. 0-Rvepmywxx-cnkpiz does ALL the effort. Patient does none of the effort to complete the activity. Or, the assistance of 2 or more helpers is required for the patient to complete the activity. If activity was not attempted, code reason: 7-Patient Refused. 9-Not Applicable-not attempted and the patient did not perform the activity before the current illness, exacerbation or injury. 10-Not Attempted due to Environmental Limitations-(lack of equipment, weather restraints, etc.). 88-Not Attempted due to Medical Conditions or Safety Concerns. Shower/Bathe Self (QC): 4 (supervision) Upper Body Dressing (QC): 4 (SBA, pt required cue to gather shirt from closet, with donning pt unable to locate shirt on walker, requiring cue to locate. Pt able to don/doff without difficulty.) Lower Body Dressing (QC): 4 (SBA to gather clothing from closet, 1 verbal cue. Pt able to don/doff with supervision) On/Off Footwear: 4 (SBA for cue to don gripper socks, and cue to pull sock on all the way.) Toileting Hygiene (QC): 4 (supervision) Toilet Transfer (QC): 4 (supervision) Other Treatment Pt laying in bed, transferred supine to sit EOB. Pt then used FWW to ambulate around her room to her closet. Pt unable to locate clean underwear, OT informed pt she would gather some from med room. Pt proceeded to close closet door and turn towards bathroom. Pt required verbal cue to gather other clothing items from closet. She then used FWW to ambulate into bathroom and onto toilet. She doffed clothes, transferred to CO, and completed shower. Pt then transferred to toilet to don bra and underwear. She stood at sink to comb her hair, then walked towards bathroom door with walker. OT cued pt she still had other clothes to put on, pt states she needs a shirt. OT cued pt that pt had put it on her walker, pt then able to locate her shirt underneath the night gown she had taken off. Transferred back to toilet to don shirt. Pt again attempted to stand and walk towards bathroom door, OT cued pt she still needed to don pants and socks, transferred back to toilet and donned LE clothing. With dressing, pt had knocked some dirty clothes onto the floor, required cue to chicken picker clothes and place on counter. Pt able to locate half of the clothes and place on counter as instructed, required cue to return to bathroom and locate the rest of the clothes. Pt then used FWW to EOB. OT set up recliner for pt with pillows, as pt states recliner is not typically comfortable. Pt then transferred to recliner. Post tx, pt seated in recliner, call light in reach and all needs met. Chair alarm activated. Max verbal cues throughout tx in order to safely manipulate O2 tubing and FWW. Education OT Patient Education: Correct positioning, Modified ADL techniques, Progress toward Goal/Update tx plan, Purpose of tx/functional activities, Rehab process, Safety issues Teaching Recipient: Patient Teaching Methods: Discussion Response to Teaching: Verbalize Understanding, Reinforcement Needed OT Short Term Goals Short Term Goals Time Frame: September 24, 2020 Shower/bathe self: 5 Upper body dressin Lower body dressin Putting on/taking off footwear: 5 OT Jail Goals Jail Goals Time Frame: Oct 08, 2020 Eating (QC): 6 Oral Hygiene (QC): 6 Toileting Hygiene (QC): 6 Shower/Bathe Self (QC): 6 Upper Body Dressing (QC): 6 Lower Body Dressing (QC): 6 On/Off Footwear (QC): 6 Additional Goals: 1-Demonstrate ADL Tasks, 2-Verbalize Understanding, 3- ImproveStrength/Yolanda 1=Demonstrate adherence to instructed precautions during ADL tasks. 2=Patient will verbalize/demonstrate understanding of assistive devices/modifications for ADL. 3=Patient will improve strength/tolerance for activity to enable patient to perform ADL's. OT Education/Plan Problem List/Assessment Assessment: Decreased Activ Tolerance, Decreased Safety Aware, Decreased UE Strength, Impaired Funct Balance, Impaired I ADL's, Impaired Self-Care Skills Discharge Recommendations Plan/Recommendations: Continue POC Treatment Plan/Plan of Care Patient would benefit from OT for education, treatment and training to promote independence in ADL's, mobility, safety and/or upper extremity function for ADL's. Plan of Care: ADL Retraining, Functional Mobility, Group Exercise/Act as Ind, UE Funct Exercise/Act Treatment Duration: September 13, 2020 Frequency: At least 5 of 7 days/Wk (IRF) Estimated Hrs Per Day: 1.5 hours per day Agreement: Yes Rehab Potential: Good Time/GCodes Start Time: 08:00 Stop Time: 09:15 Total Time Billed (hr/min): 75 Billed Treatment Time 1, ADL 5 ANYA CARBALLO OT September 20, 2020 09:15
--- NOTE | 2020-09-20 09:27 | Cardiology Progress Note ---
Subjective Date Seen by Provider: September 20, 2020 Time Seen by Provider: 08:50 Subjective/Events-last exam Patient is sitting up at bedside. Reports DILLON improved this morning. Denies any chest pain Review of Systems General: No Chills, No Night Sweats; Fatigue; No Malaise, No Appetite, No Other HEENT: No Head Aches, No Visual Changes, No Eye Pain, No Ear Pain, No Dyspha ruthann, No Sinus Congestion, No Post Nasal Drip, No Sore Throat, No Other Pulmonary: No Dyspnea, No Cough, No Pleuritic Chest Pain, No Other Cardiovascular: No: Chest Pain, Palpitations, Orthopnea, Paroxysmal Noc. Dyspnea, Edema, Lt Headedness, Other Objective-Cardiology Exam Last Set of Vital Signs Vital Signs 09/20/20 08:00 Temp 36.5 Pulse 84 Resp 16 B/P (MAP) 124/75 (91) Pulse Ox 96 O2 Delivery Nasal Cannula O2 Flow Rate 2.00 Capillary Refill : General: Alert, Oriented X3, Cooperative HEENT: Atraumatic, PERRLA Neck: Supple, No JVD, No Thyromegaly Lungs: Clear to Auscultation, Normal Air Movement Heart: Regular Rate, Normal S1, Normal S2, No Murmurs Abdomen: Normal Bowel Sounds, Soft, No Tenderness, No Hepatosplenomegaly, No Masses Extremities: No Edema Skin: No Rashes, No Significant Lesion Neuro: Normal Gait, Normal Speech Psych/Mental Status: Mental Status NL, Mood NL Results Lab Laboratory Tests 09/20/20 06:00 A/P-Cardiology Admission Diagnosis Hemorrhagic CVA Generalized debility/weakness COPD DM Assessment/Plan Hemorrhagic CVA, 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 Continues to c/o mild DILLON. Normal blood pressure, no history of hypertension, continue to monitor blood pressure Generalized debility/weakness, continue PT/OT COPD, oxygen dependent, management per medical services DM, management per medical services Obesity Extobaccoism Multiple risk factors for underlying CAD, consider further workup as outpatient. Patient was seen and evaluated with Shaylee, she was receiving physical therapy Denied any chest pain, reporting improvement in her headache Continue to monitor blood pressure, no changes are recommended Continue PT/OT Clinical Quality Measures DVT/VTE Risk/Contraindication: Contraindications-Pharm: Other *list below* Other: hemorrhagic cva Supervisory-Addendum Brief Supervisory Addendum Participated in pt care: history, MDM, physical Personally performed: exam, history, MDM Care discussed with: SHAYLEE BOJORQUEZ September 20, 2020 9:27 am YASMINE LEE MD September 20, 2020 10:33 am
[2020-09-20] MEDS: VITAMIN D3 25 MCG (1,000 UNITS) TABLET PO SCH (09:41)
[2020-09-20] MEDS: LORATADINE (CLARITIN) 10 MG TAB PO SCH (09:41)
[2020-09-20] MEDS: LEVOTHYROXINE 75 MCG (LEVOTHROID) TABLET PO SCH (09:41)
[2020-09-20] MEDS: DOCUSATE SODIUM 100 MG (COLACE) CAP PO PRN ×2 (09:41→20:59)
[2020-09-20] MEDS: FAMOTIDINE 20 MG (PEPCID) TABLET PO SCH (09:41)
[2020-09-20] MEDS: SINEMET CR 50/200 (CARBIDOPA/LEVODOPA SA) TAB PO SCH ×3 (09:42→21:00)
--- NOTE | 2020-09-20 10:48 | Speech Therapy Daily Note ---
Speech Daily Progress Note Subjective Date Seen by Provider: September 20, 2020 Time Seen by Provider: 00:30 Patient states she had a shower this morning and it tired her out. Objective Patient complete sequencing activities at 75% with moderate cues needed. Assessment Assessment Current Status: Fair Progress Treatment Plan Continue Plan of Care Speech Short Term Goals Short Term Goals Short Term Goals 1) Patient will complete sequencing tasks related to daily living at 80% or greater with minimal cues. 2) Patient will complete simple multiple step following directions tasks related to daily living at 80% or greater with minimal cues. Speech Half-Way Goals Wax Machine Operator Goals Patient will improve independence of daily living tasks with minimal assistance. Speech-Plan Patient/Family Goals Patient/Family Goals: Patient plans on returning to her home where she lives alone. She has great support from her daughter and other family. Treatment Plan Speech Therapy Treatment Plan: Continue Plan of Care Treatment Duration: October 01, 2020 Frequency: 4 times per week (Patient will receive skilled ST 4-5x per week) Estimated Hrs Per Day: .5 hour per day Rehab Potential: Good Barriers to Learning: Patient's recent CVA and decline in function Pt/Family Agrees to Plan: Yes Safety Risks/Education Teaching Recipient: Patient Teaching Methods: Demonstration, Discussion Response to Teaching: Verbalize Understanding, Return Demonstration Education Topics Provided: Continued safety and communication Time Speech Therapy Time In: 10:30 Speech Therapy Time Out: 11:00 Total Billed Time: 30 Billed Treatment Time 1WANDA B[address] ST September 20, 2020 10:48
[2020-09-20] MEDS: RT--FLUTICASONE/SALMETEROL 232-14 (AIRDUO RespiCLICK) IH SCH ×2 (12:13→18:58)
--- NOTE | 2020-09-20 13:02 | Physical Therapy Daily Note ---
PT Daily Note-Current Subjective Pt sitting in recliner with Nurse giving meds upon arrival. Pt agrees to PT. Pain Location: No Pain Reported Mental Status Patient Orientation: Person, Place Attachments: Oxygen (1L) Transfers SCALE: Activities may be completed with or without assistive devices. 8-Dwuwcyiklg-ohxuavx completes the activity by him/herself with no assistance from a helper. 5-Set-up or Clean-up Assistance-helper sets up or cleans up; patient completes activity. Adel assists only prior to or following the activity. 4-Supervision or Touching Assistance-helper provides verbal cues and/or touching/steadying and/or contact guard assistance as patient completes activity. Assistance may be provided throughout the activity or intermittently. 3-Partial/Moderate Assistance-helper does LESS THAN HALF the effort. Adel lifts, holds or supports trunk or limbs, but provides less than half the effort. 2-Substantial/Maximal Assistance-helper does MORE THAN HALF the effort. Adel lifts or holds trunk or limbs and provides more than half the effort. 4-Avbrieqac-cjschk does ALL the effort. Patient does none of the effort to complete the activity. Or, the assistance of 2 or more helpers is required for the patient to complete the activity. If activity was not attempted, code reason: 7-Patient Refused. 9-Not Applicable-not attempted and the patient did not perform the activity before the current illness, exacerbation or injury. 10-Not Attempted due to Environmental Limitations-(lack of equipment, weather restraints, etc.). 88-Not Attempted due to Medical Conditions or Safety Concerns. Sit to Stand (QC): 5 Weight Bearing Right Lower Extremity: Right Full Weight Bearing Left Lower Extremity: Left Full Weight Bearing Gait Training Does the Patient Walk?: Yes Distance: 150' x2 Walk 10 feet (QC): 5 Walk 50 ft with 2 Turns(QC): 5 Walk 150 ft (QC): 4 Gait Persons Needed: 1 Gait Assistive Device: FWW Pt needs VC for safety and management of O2 tubing. Wheelchair Training Does the Pt Use a Wheelchair?: No Exercises NuStep Minutes: 15 NuStep Workload: 4 Treatments 930-1015: TF to standing, declines needing to use BR and amb. in hallway. Pt uses NuStep and amb. in hallway before returning to room to rest. Pt transfers to recliner and rests with all needs met, call light in hand. [id number]: Pt asks to use BR at start of tx. Pt then asks to rest in bed. Pt transfers to supine in bed and is repositioned to comfort. Pt reviews Supine Ex and rest in bed at end of tx. All needs met, call light in hand. Assessment Current Status: Fair Progress Pt needs increased VC for safety with transfers and ambulation. PT Short Term Goals Short Term Goals Time Frame: September 18, 2020 Roll Left & Right: 6 Sit to lyin Lying to sitting on side of be: 6 Sit to stand: 6 Chair/qvi-wx-ifqrv transfer: 6 PT Financial Administrator Goals Financial Administrator Goals PT Detention Goals Time Frame: October 02, 2020 Roll Left & Right (QC): 6 Sit to Lying (QC): 6 Lying-Sitting on Side/Bed(QC): 6 Sit to Stand (QC): 6 Chair/Aha-lx-Jznfz Xfer(QC): 6 Toilet Transfer (QC): 6 Car Transfer (QC): 6 Does the Patient Walk: Yes Walk 10 feet (QC): 6 Walk 50ft with 2 Turns (QC): 6 Walk 150 ft (QC): 6 Walking 10ft on Uneven Surface: 6 1 Step (curb) (QC): 6 4 Steps (QC): 6 12 Steps (QC): 6 Picking up an Object (QC): 6 Does the Pt use WC or Scooter?: No Wheel 50 feet with 2 turns (QC: 9 Type: N/A Wheel 150 feet: 9 Type: N/A PT Plan Problem List Problem List: Activity Tolerance, Safety Treatment/Plan Treatment Plan: Continue Plan of Care Treatment Plan: Bed Mobility, Education, Functional Activity Yolanda, Functional Strength, Group Therapy, Gait, Safety, Therapeutic Exercise, Transfers Treatment Duration: October 02, 2020 Frequency: At least 5 of 7 days/Wk (IRF) Estimated Hrs Per Day: 1.5 hours per day Patient and/or Family Agrees t: Yes Safety Risks/Education Patient Education: Gait Training, Safety Issues Teaching Recipient: Patient Teaching Methods: Discussion Response to Teaching: Reinforcement Needed Time/GCodes Time In: 930 Time Out: 1400 Total Billed Treatment Time: 75 Total Billed Treatment 930-1015: 1, FA (15m), GT (15m) & EX (15m) [id number]: 1, FA x2 (30m) TAMRA LION PILLOWCASE TURNER September 20, 2020 13:02
[2020-09-20 20:00] VITALS: BP 122/56
[2020-09-20] MEDS: MELATONIN 3 MG TABLET PO PRN (20:59)
[2020-09-20] MEDS: rOPINIRole 0.25 MG (REQUIP) TAB PO SCH (20:59)
[2020-09-20] MEDS: MONTELUKAST 10 MG (SINGULAIR) TAB PO SCH (20:59)
[2020-09-20] MEDS: SERTRALINE 100 MG (ZOLOFT) TAB PO SCH (20:59)
--- NOTE | 2020-09-21 07:09 | PM&R Progress Note ---
Subjective HPI/CC On Admission Date Seen by Provider: September 21, 2020 Time Seen by Provider: 08:30 Subjective/Events-last exam 09/21/20: Pt doing pretty well Plan for DC tomorrow Denies any new issues Ready for DC 09/20/20: Pt ready for discharge on Sunday Labs looks good S/p bowel movement but laxatives will be given too No issues 09/19/20: Patient doing well No DILLON Tramadol used No falls 09/18/20: Patient doing well DILLON improved No falls Ultram helps with DILLON 09/17/20: Patient doing well Headache so PCP placed her on Tramdol No falls Impulsive 09/16/20: Patient doing well Laxatives held due to loose stools No major issues 09/15/20: Patient doing well Impulsive Alarms on chair and bed Patient is DNR so that order placed BM+ 09/14/20: Pt doing pretty well Bed alarm for impulsiveness Pt up to the bathroom this morning with help, but there is some vision loss making it a fall risk Bowels moved yesterday 09/13/20: Patient doing really well No major issues Bowels move 2 days ago Oxygen is 24/7 09/12/20: Patient doing well Has a DILLON and APAP given No other pain Peripheral vision loss noted PCP visited her today Checked meds and labs BP ok Review of Systems General: Fatigue, Malaise Neurological: Weakness Objective Exam Vital Signs Vital Signs Date Time Temp Pulse Resp B/P (MAP) Pulse Ox O2 Delivery O2 Flow Rate FiO2 09/21/20 21:40 98 Nasal Cannula 2.00 09/21/20 19:51 36.2 85 20 123/57 (79) Capillary Refill : General Appearance: No Apparent Distress HEENT: PERRL/EOMI, Normal ENT Inspection, Pharynx Normal Neck: Supple Respiratory: Lungs Clear, Decreased Breath Sounds Cardiovascular: Regular Rate, Rhythm Gastrointestinal: Normal Bowel Sounds, No Organomegaly, No Pulsatile Mass, Non Tender, Soft Rectal: Deferred Back: Normal Inspection, No CVA Tenderness, No Vertebral Tenderness Extremity: Non Tender, No Calf Tenderness, No Pedal Edema Neurologic/Psychiatric: Alert, Oriented x3 Skin: Normal Color, Warm/Dry Lymphatic: No Adenopathy Results/Procedures Lab Patient resulted labs reviewed. FIM Transfers Therapy Code Descriptions/Definitions Functional [place] Measure: 0=Not Assessed/NA 4=Minimal Assistance 1=Total Assistance 5=Supervision or Setup 2=Maximal Assistance 6=Modified [place] 3=Moderate Assistance 7=Complete IndependenceSCALE: Activities may be completed with or without assistive devices. 9-Ulrtdjygmq-qtzywyn completes the activity by him/herself with no assistance fr om a helper. 5-Set-up or Clean-up Assistance-helper sets up or cleans up; patient completes activity. [place] assists only prior to or following the activity. 4-Supervision or Touching Assistance-helper provides verbal cues and/or touching/steadying and/or contact guard assistance as patient completes activity. Assistance may be provided throughout the activity or intermittently. 3-Partial/Moderate Assistance-helper does LESS THAN HALF the effort. [place] lifts, holds or supports trunk or limbs, but provides less than half the effort. 2-Substantial/Maximal Assistance-helper does MORE THAN HALF the effort. [place] lifts or holds trunk or limbs and provides more than half the effort. 2-Rzgdsiysh-upwzsc does ALL the effort. Patient does none of the effort to complete the activity. Or, the assistance of 2 or more helpers is required for the patient to complete the activity. If activity was not attempted, code reason: 7-Patient Refused. 9-Not Applicable-not attempted and the patient did not perform the activity before the current illness, exacerbation or injury. 10-Not Attempted due to Environmental Limitations-(lack of equipment, weather restraints, etc.). 88-Not Attempted due to Medical Conditions or Safety Concerns. Roll Left to Right (QC): 6 Sit to Lying (QC): 6 Sit to Stand (QC): 5 Chair/Xzv-uc-Mfqht Xfer(QC): 6 Car Transfer (QC): 6 Gait Training Does the Patient Walk?: Yes Distance: 150' x2 Walk 10 feet (QC): 5 Walk 50 ft with 2 Turns(QC): 5 Walk 150 ft (QC): 4 Walking 10ft/uneven surface-QC: 4 Gait Persons Needed: 1 Gait Assistive Device: FWW Wheelchair Training Does the Pt Use a Wheelchair?: No Wheel 50 ft with 2 turns (QC): 9 Wheel 150 ft (QC): 9 Type of Wheelchair: N/A Stair Training Stair Training: Handrails/: 2 handrails #of Steps: 4 1 Step (curb) (QC): 4 4 Steps (QC): 4 12 Steps (QC): 88 Stairs: Pattern: Reciprocal Balance Picking up an Object (QC): 4 ADL-Treatment Eating (QC): 6 (IND) Oral Hygiene (QC): 4 (Supervision standing at sink) Shower/Bathe Self (QC): 4 (supervision) Upper Body Dressing (QC): 4 (SBA, pt required cue to gather shirt from closet, with donning pt unable to locate shirt on walker, requiring cue to locate. Pt able to don/doff without difficulty.) Lower Body Dressing (QC): 4 (SBA to gather clothing from closet, 1 verbal cue. Pt able to don/doff with supervision) On/Off Footwear (QC): 4 (SBA for cue to don gripper socks, and cue to pull sock on all the way.) Toileting Hygiene (QC): 4 (supervision) Toilet Transfer (QC): 4 (supervision) Assessment/Plan Assessment and Plan Assess & Plan/Chief Complaint Assessment: 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 COPD with 24/7 O2 dependence Former smoker HTN Falls Hypothyroidism Parkinson's disease Carotid stenosis HLP CVA ischemic type remotely in the past without residual Plan: IRF protocol Monitor closely Monitor BP Fall risk 09/12/20: DILLON management No issues otherwise 09/13/20: Monitor oxygen level Supportive care 09/14/20: Monitor closely O2 maintained IRF therapies 09/15/20: Monitor for falls Impulsiveness noted 09/16/20: Monitor closely DC laxatives 09/17/20: Monitor pain Fall risk 09/18/20: Monitor DILLON 09/19/20: Monitor BP Pain control 09/20/20: Monitor pain Fall risk 09/21/20: Monitor closely DC planned (1) Hemorrhagic stroke Status: Acute (2) Parkinson disease (3) Falls (4) Carotid stenosis, bilateral (5) Oxygen dependent (6) Depression (7) Hypothyroidism (8) Hypertension (9) Former smoker (10) Diabetes (11) COPD (chronic obstructive pulmonary disease) Status: Acute JUN LOUIS DO September 21, 2020 07:09
[2020-09-21] MEDS: RT--FLUTICASONE/SALMETEROL 232-14 (AIRDUO RespiCLICK) IH SCH ×2 (07:13→19:06)
--- NOTE | 2020-09-21 07:42 | Cardiology Progress Note ---
Subjective Date Seen by Provider: September 21, 2020 Time Seen by Provider: 07:41 Subjective/Events-last exam Patient was seen at bedside, eating breakfast, feeling better, no headache. Review of Systems General: No Chills, No Night Sweats, No Fatigue, No Malaise, No Appetite, No Other HEENT: No Head Aches, No Visual Changes, No Eye Pain, No Ear Pain, No Dysphasia, No Sinus Congestion, No Post Nasal Drip, No Sore Throat, No Other Pulmonary: No Dyspnea, No Cough, No Pleuritic Chest Pain, No Other Cardiovascular: No: Chest Pain, Palpitations, Orthopnea, Paroxysmal Noc. Dyspnea, Edema, Lt Headedness, Other Objective-Cardiology Exam Last Set of Vital Signs Vital Signs 09/20/20 09/21/20 20:00 07:13 Temp 36.8 Pulse 86 Resp 20 B/P (MAP) 122/56 (78) Pulse Ox 94 O2 Delivery Nasal Cannula O2 Flow Rate 2.00 Capillary Refill : General: Alert, Oriented X3, Cooperative HEENT: Atraumatic, PERRLA Neck: Supple, No JVD, No Thyromegaly Lungs: Clear to Auscultation, Normal Air Movement Heart: Regular Rate, Normal S1, Normal S2, No Murmurs Abdomen: Normal Bowel Sounds, Soft, No Tenderness, No Hepatosplenomegaly, No Masses Extremities: No Clubbing, No Cyanosis, No Edema Skin: No Rashes, No Breakdown, No Significant Lesion Neuro: Normal Gait, Normal Speech Psych/Mental Status: Mental Status NL, Mood NL A/P-Cardiology Admission Diagnosis Hemorrhagic CVA Generalized debility/weakness COPD DM Assessment/Plan Hemorrhagic CVA, 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 Feeling better. No further headache was reported. Continue with PT/ OT Normal blood pressure, no history of hypertension, continue to monitor blood pressure Generalized debility/weakness, continue PT/OT COPD, oxygen dependent, management per medical services DM, management per medical services Obesity Extobaccoism Multiple risk factors for underlying CAD, consider further workup as outpatient. Clinical Quality Measures DVT/VTE Risk/Contraindication: Contraindications-Pharm: Other *list below* Other: hemorrhagic cva YASMINE LEE MD September 21, 2020 07:42
[2020-09-21 08:00] VITALS: BP 125/59
--- NOTE | 2020-09-21 08:40 | Speech Therapy Daily Note ---
Speech Daily Progress Note Subjective Date Seen by Provider: September 21, 2020 Time Seen by Provider: 00:30 Patient was pleasant, although sleepy. She states she is ready to go home. Objective Patient completed a series of q/a related to her return home with 90% with minimal cuing. Assessment Assessment Current Status: Good Progress Treatment Plan Discontinue ST, Goals Met Speech Short Term Goals Short Term Goals Short Term Goals 1) Patient will complete sequencing tasks related to daily living at 80% or greater with minimal cues. 2) Patient will complete simple multiple step following directions tasks related to daily living at 80% or greater with minimal cues. 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 Speech-Plan Patient/Family Goals Patient/Family Goals: Patient will be discharging to home tomorrow where she lives alone. She will have home health services as well as great family support. Treatment Plan Speech Therapy Treatment Plan: Discontinue ST, Goals Met Treatment Duration: October 01, 2020 Frequency: 4 times per week (Patient will receive skilled ST 4-5x per week) Estimated Hrs Per Day: .5 hour per day Rehab Potential: Good Barriers to Learning: Patient's difficulty with sequencing and memory. Pt/Family Agrees to Plan: Yes Safety Risks/Education Teaching Recipient: Patient Teaching Methods: Discussion Response to Teaching: Verbalize Understanding Education Topics Provided: Continued safety upon her return home. Time Speech Therapy Time In: 10:30 Speech Therapy Time Out: 11:00 Total Billed Time: 30 Billed Treatment Time 1, SLTS No QUALITY CODES: EXPRESSION OF IDEAS/WANTS: 3 UNDERSTANDING VERBAL CONTENT: 4 BRIEF INTERVIEW MENTAL STATUS: YES REPETITION OF 3 WORDS: 3 TEMPORAL ORIENTATION: YEAR: CORRECT, MONTH: CORRECT, DAY: CORRECT' RECALL SOCK: NO, COLOR: NO, BED: YES WITH CUE MEMORY/RECALL ABILITY: SEASON, THAT SHE IS IN THE HOSPITAL ALISON MONTANEZ September 21, 2020 08:40
[2020-09-21] MEDS ORDERED: SERT-414 PO (09:04)
[2020-09-21] MEDS ORDERED: LEVE500T6 PO (09:04)
[2020-09-21] MEDS ORDERED: ATOR80TA76 PO (09:04)
[2020-09-21] MEDS ORDERED: FAMO20TA5 PO (09:04)
[2020-09-21] MEDS ORDERED: ACHD5005 PO (09:04)
--- NOTE | 2020-09-21 09:05 | D/C HH Face to Face Order ---
D/C Face to Face Orders Reconcile Patient Problems Problems Reviewed?: Yes Instructions for Patient Via [facility], Patient Instructions/FollowUp: Dr Salvador in 1 week Physician to follow Patient: Clementeboazedvin Discharge Diet for Home: No Restrictions Patient Problems: Hemorrhagic CVA Patient Data-Allergies,Ht & Wt Patient Allergies: Coded Allergies: No Known Drug Allergies (Unverified , 03/15/18) Height (Feet): 5 Height (Inches): 3.00 Weight (Pounds): 175 Weight (Ounces): 0.7 Home Health Need/Face to Face Date of Face to Face: September 21, 2020 Clinical Findings: Generalized weakness and fatigue, Instability, Muscle weakness, Shortness of breath, Unsteady gait I have seen Pt [id number]: Yes Discharged To: Home Diagnosis/Conditions: Hemorrhagic CVA Patient is Homebound due to: CognItive deficits, Josh fall risk due to instabilty, Muscle weakness, Shortness of breath/distress Homebound Status Due to the above stated illness, injury or surgical procedure (medical condition or diagnosis) and associated clinical findings, the patient is homebound because of his/her inability to leave home except with aid of a supportive device and/or person AND leaving the home requires a considerable and taxing effort or is medically contraindicated. Pt req the following assistanc: Walker Home Health Nursing Orders Home Health Services Order: Nursing Services, Slip Feeder-Evaluate & Treat, Physical Therapy-Evaluate & Treat Certify Stmt I certify that this patient is under my care and that I, a nurse practitioner or a physician; a school health assistant working with me, had a face to face encounter that - meets the physician face to face encounter requirements with this patient as dated. JUN LOUIS DO September 21, 2020 09:05
[2020-09-21] MEDS ORDERED: HYDROcodone/APAP 5 MG/325 MG (LORTAB) TAB PO PRN (09:15)
[2020-09-21] MEDS: LORATADINE (CLARITIN) 10 MG TAB PO SCH (10:11)
[2020-09-21] MEDS: VITAMIN D3 25 MCG (1,000 UNITS) TABLET PO SCH (10:11)
[2020-09-21] MEDS: FAMOTIDINE 20 MG (PEPCID) TABLET PO SCH (10:11)
[2020-09-21] MEDS: DOCUSATE SODIUM 100 MG (COLACE) CAP PO PRN (10:11)
[2020-09-21] MEDS: LEVOTHYROXINE 75 MCG (LEVOTHROID) TABLET PO SCH (10:11)
[2020-09-21] MEDS: SINEMET CR 50/200 (CARBIDOPA/LEVODOPA SA) TAB PO SCH ×3 (10:12→21:35)
--- NOTE | 2020-09-21 10:16 | Physical Therapy Daily Note ---
PT Daily Note-Current Subjective Pt sitting in recliner upon arrival. Pt agrees to PT. Pain Location: No Pain Reported Mental Status Patient Orientation: Person, Place Attachments: Oxygen (1L) Transfers SCALE: Activities may be completed with or without assistive devices. 9-Viooshgull-mgbnsyx completes the activity by him/herself with no assistance from a helper. 5-Set-up or Clean-up Assistance-helper sets up or cleans up; patient completes activity. Cooper assists only prior to or following the activity. 4-Supervision or Touching Assistance-helper provides verbal cues and/or touchin g/steadying and/or contact guard assistance as patient completes activity. Assistance may be provided throughout the activity or intermittently. 3-Partial/Moderate Assistance-helper does LESS THAN HALF the effort. Cooper lifts, holds or supports trunk or limbs, but provides less than half the effort. 2-Substantial/Maximal Assistance-helper does MORE THAN HALF the effort. Cooper lifts or holds trunk or limbs and provides more than half the effort. 6-Xissvcjwd-kofzzy does ALL the effort. Patient does none of the effort to complete the activity. Or, the assistance of 2 or more helpers is required for the patient to complete the activity. If activity was not attempted, code reason: 7-Patient Refused. 9-Not Applicable-not attempted and the patient did not perform the activity before the current illness, exacerbation or injury. 10-Not Attempted due to Environmental Limitations-(lack of equipment, weather restraints, etc.). 88-Not Attempted due to Medical Conditions or Safety Concerns. Roll Left & Right (QC): 6 Sit to Lying (QC): 6 Lying to Sitting/Side of Bed(Q: 6 Sit to Stand (QC): 6 Chair/Lgr-lu-Khcug Xfer(QC): 6 Toilet Transfer (QC): 6 Car Transfer (QC): 6 Weight Bearing Right Lower Extremity: Right Full Weight Bearing Left Lower Extremity: Left Full Weight Bearing Gait Training Does the Patient Walk?: Yes Distance: 150' x2 Walk 10 feet (QC): 5 Walk 50 ft with 2 Turns(QC): 5 Walk 150 ft (QC): 5 Walking 10ft/uneven surface-QC: 5 Gait Persons Needed: 1 Gait Assistive Device: FWW Wheelchair Training Does the Pt Use a Wheelchair?: No Stair Training Stair Training: Handrails/: 2 handrails #of Steps: 4 1 Step (curb) (QC): 4 4 Steps (QC): 4 12 Steps (QC): 7 Stairs: Pattern: Step to Balance Picking up an Object (QC): 7 Special Test Comments Pt unable to follow directions and feels unsafe. 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 Exercises Supine Ex: Ankle pumps, Quad Set, Heel Slides, Hip abd/add Supine Reps: 15 Treatments [id number]: Pt completes QC scoring items listed above. Pt returns to room at end of tx with all needs met, call light in hand. [id number]: Pt asks to use BR and wants to return to Supine in bed. Pt is able to completes Supine Ex and is repositioned to comfort at end of tx with all needs met, call light in hand. Assessment Current Status: Fair Progress Pt is able to complete tasks but needs encouragement to continue as she sometimes forgets what she is doing. Pt needs VC for safety especially with managing O2 tubing and sequencing of tasks. PT Short Term Goals Short Term Goals Time Frame: September 18, 2020 Roll Left & Right: 6 Sit to lyin Lying to sitting on side of be: 6 Sit to stand: 6 Chair/ruo-gj-oiwwl transfer: 6 PT Rotary Dryer Operator Goals Rotary Dryer Operator Goals PT Rotary Dryer Operator Goals Time Frame: October 02, 2020 Roll Left & Right (QC): 6 Sit to Lying (QC): 6 Lying-Sitting on Side/Bed(QC): 6 Sit to Stand (QC): 6 Chair/Mly-yg-Ubgxn Xfer(QC): 6 Toilet Transfer (QC): 6 Car Transfer (QC): 6 Does the Patient Walk: Yes Walk 10 feet (QC): 6 Walk 50ft with 2 Turns (QC): 6 Walk 150 ft (QC): 6 Walking 10ft on Uneven Surface: 6 1 Step (curb) (QC): 6 4 Steps (QC): 6 12 Steps (QC): 6 Picking up an Object (QC): 6 Does the Pt use WC or Scooter?: No Wheel 50 feet with 2 turns (QC: 9 Type: N/A Wheel 150 feet: 9 Type: N/A PT Plan Problem List Problem List: Activity Tolerance, Safety Treatment/Plan Treatment Plan: Continue Plan of Care Treatment Plan: Bed Mobility, Education, Functional Activity Yolanda, Functional Strength, Group Therapy, Gait, Safety, Therapeutic Exercise, Transfers Treatment Duration: October 02, 2020 Frequency: At least 5 of 7 days/Wk (IRF) Estimated Hrs Per Day: 1.5 hours per day Patient and/or Family Agrees t: Yes Safety Risks/Education Patient Education: Gait Training, Transfer Techniques, Correct Positioning, Safety Issues Teaching Recipient: Patient Teaching Methods: Discussion Response to Teaching: Reinforcement Needed Time/GCodes Time In: 930 Time Out: 1400 Total Billed Treatment Time: 75 Total Billed Treatment 930-1015: 1, GT (15m), EX (15m) & FA (15m) 5700-9302: 1, FA x2 (30m) TAMRA LION HAND SLITTER September 21, 2020 10:16
--- NOTE | 2020-09-21 10:18 | Occupational Ther Daily Note ---
OT Current Status-Daily Note Subjective Pt seated in recliner, agreeable to OT Tx. Mental Status/Objective Patient Orientation: Person, Place, Situation ADL-Treatment Therapy Code Descriptions/Definitions Functional Cloud Measure: 0=Not Assessed/NA 4=Minimal Assistance 1=Total Assistance 5=Supervision or Setup 2=Maximal Assistance 6=Modified Cloud 3=Moderate Assistance 7=Complete IndependenceSCALE: Activities may be completed with or without assistive devices. 6-Lpxutiubbs-djxeejr completes the activity by him/herself with no assistance from a helper. 5-Set-up or Clean-up Assistance-helper sets up or cleans up; patient completes activity. Madison assists only prior to or following the activity. 4-Supervision or Touching Assistance-helper provides verbal cues and/or touching/steadying and/or contact guard assistance as patient completes activity. Assistance may be provided throughout the activity or intermittently. 3-Partial/Moderate Assistance-helper does LESS THAN HALF the effort. Madison lifts, holds or supports trunk or limbs, but provides less than half the effort. 2-Substantial/Maximal Assistance-helper does MORE THAN HALF the effort. Madison lifts or holds trunk or limbs and provides more than half the effort. 7-Lrnhfafjz-hqsysm does ALL the effort. Patient does none of the effort to complete the activity. Or, the assistance of 2 or more helpers is required for the patient to complete the activity. If activity was not attempted, code reason: 7-Patient Refused. 9-Not Applicable-not attempted and the patient did not perform the activity before the current illness, exacerbation or injury. 10-Not Attempted due to Environmental Limitations-(lack of equipment, weather restraints, etc.). 88-Not Attempted due to Medical Conditions or Safety Concerns. Eating (QC): 6 (Per pt report) Oral Hygiene (QC): 6 (IND standing at sink) Shower/Bathe Self (QC): 5 (set up assist, pt able to wash/dry all parts seated on SC) Upper Body Dressing (QC): 4 (Pt required cue for sequencing with dressing, able to don/doff pulley worker shirt.) Lower Body Dressing (QC): 5 (set up assist) On/Off Footwear: 4 (Pt required cue for sequencing, able to doff/don gripper socks. Cues to pull on R gripper sock completely.) Toileting Hygiene (QC): 6 (IND) Toilet Transfer (QC): 6 (IND) Other Treatment Pt seated in recliner, used FWW to ambulate around room to gather clothing. Pt only gathered underwear and bra from closet, then took items into bathroom. Pt sat on toilet to doff clothes, then transferred to VT to complete shower. Pt tr ansferred to toilet to don clothes, donning underwear, bra, and pants. Pt stood at sink to put on deodorant and comb her hair, then attempted to leave bathroom stating she is headed to bed. OT cued pt to continue dressing, instructing her to don shirt and footwear. Pt sat back on toilet to don shirt, then stood again at FWW and ambulated to bed. OT cued pt again she needed to put her gripper socks on. Pt donned footwear EOB, requiring 2 verbal cues in order to pull R sock up completely. Pt then used FWW to stand at sink to complete oral care, then performed functional mobility to therapy gym. In order to increase BUE strength and activity tolerance, pt completed arm bike x10 mins, min resistance. Pt used FWW to return to her room, transferring to recliner. Post tx, pt seated in recliner, call light in reach and all needs met. Pt required moderate cues throughout tx with ambulation and transfers in order to manage O2 tubing safely. Education OT Patient Education: Correct positioning, Modified ADL techniques, Progress toward Goal/Update tx plan, Purpose of tx/functional activities, Safety issues Teaching Recipient: Patient Teaching Methods: Discussion Response to Teaching: Verbalize Understanding OT Short Term Goals Short Term Goals Time Frame: September 24, 2020 Shower/bathe self: 5 Upper body dressin Lower body dressin Putting on/taking off footwear: 5 OT Braille Transcriber Goals Braille Transcriber Goals Time Frame: Oct 08, 2020 Eating (QC): 6 (met) Oral Hygiene (QC): 6 (met) Toileting Hygiene (QC): 6 (met) Shower/Bathe Self (QC): 6 (not met, set up) Upper Body Dressing (QC): 6 (not met, SBA) Lower Body Dressing (QC): 6 (not met, set up) On/Off Footwear (QC): 6 (not met, SBA) Additional Goals: 1-Demonstrate ADL Tasks, 2-Verbalize Understanding, 3- ImproveStrength/Yolanda 1=Demonstrate adherence to instructed precautions during ADL tasks. 2=Patient will verbalize/demonstrate understanding of assistive devices/modifications for ADL. 3=Patient will improve strength/tolerance for activity to enable patient to perform ADL's. OT Education/Plan Problem List/Assessment Assessment: Decreased Activ Tolerance, Decreased Safety Aware, Decreased UE Strength, Impaired I ADL's, Impaired Self-Care Skills Discharge Recommendations Plan/Recommendations: Continue POC Treatment Plan/Plan of Care Patient would benefit from OT for education, treatment and training to promote independence in ADL's, mobility, safety and/or upper extremity function for ADL's. Plan of Care: ADL Retraining, Functional Mobility, Group Exercise/Act as Ind, UE Funct Exercise/Act Treatment Duration: September 13, 2020 Frequency: At least 5 of 7 days/Wk (IRF) Estimated Hrs Per Day: 1.5 hours per day Agreement: Yes Rehab Potential: Good Time/GCodes Start Time: 08:00 Stop Time: 09:15 Total Time Billed (hr/min): 75 Billed Treatment Time 1, ADL 4 (60'), EX (15') ANYA CARBALLO OT September 21, 2020 10:18
--- NOTE | 2020-09-21 14:04 | Progress Note ---
Subjective Date Seen by a Provider: September 21, 2020 Time Seen by a Provider: 12:45 Subjective/Events-last exam Fwup Acute Right Sided Hemorrhagic Stoke, HTN, COPD, Hypothyroidism, Cephalgia. DILLON better but more confused since weekend and very fatigued. Objective Exam Vital Signs Date Time Temp Pulse Resp B/P (MAP) Pulse Ox O2 Delivery O2 Flow Rate FiO2 09/21/20 09:00 Nasal Cannula 2.00 09/21/20 08:00 36.3 78 16 125/59 (81) 95 Nasal Cannula 2.00 09/21/20 07:13 94 Nasal Cannula 2.00 09/20/20 21:00 Nasal Cannula 2.00 09/20/20 20:00 36.8 86 20 122/56 (78) 96 09/20/20 18:59 97 Nasal Cannula 2.00 Capillary Refill : General Appearance: Mild Distress Respiratory: Lungs Clear Cardiovascular: Regular Rate, Rhythm Extremity: Non Tender, No Calf Tenderness, No Pedal Edema Neurologic/Psychiatric: Alert, Disoriented, Other (more lethargic) Assessment/Plan Assessment/Plan Assess & Plan/Chief Complaint 1. Acute Right Sided Hemorrhagic Stoke--plan is to repeat scan 2 weeks from discharge from [facility] and restart aspirin if improved/resolved--that would be this Sunday, continue PT/OT/ST, sent neurology referral to [facility] for outpatient fwup 2. HTN--stable 3. COPD--stable 4. Depression with impulse control--increased sertraline dose 5. Lethargy/Weakness--may be due to tramadol so will DC and will check UA Clinical Quality Measures Admission Status Admission Dx 1. Acute Right Sided Hemorrhagic Stoke with ongoing cephalgia, possible peripheral vision loss and some impulsivity per nursing--PT/OT and ST 2. Hypertension--stable 3. COPD--oxygen dependant 4. Hypothyroidism--stable, back on home dose 5. Previous Ischemic CVA with encephalomalacia present DVT/VTE Risk/Contraindication: Contraindications-Pharm: Other *list below* Other: hemorrhagic cva AMEYA PEREZ DO September 21, 2020 14:04
[2020-09-21 19:10] LABS: BILIRUBIN,URINE NEGATIVE (NEGATIVE); CLARITY,URINE SL CLOUDY; COLOR,URINE YELLOW; GLUCOSE, URINE (UA) NEGATIVE (NEGATIVE); KETONES,URINE NEGATIVE (NEGATIVE); LEUKOCYTE ESTERASE ,URINE 1+ (NEGATIVE); NITRITE,URINE NEGATIVE (NEGATIVE); PH,URINE 5.5 (5-9); PROTEIN,URINE NEGATIVE (NEGATIVE)
[2020-09-21 19:17] LABS: BACTERIA,URINE NEGATIVE /HPF; WBC,URINE 25-50 /HPF
[2020-09-21 19:51] VITALS: BP 123/57
[2020-09-21] MEDS: SERTRALINE 100 MG (ZOLOFT) TAB PO SCH (21:34)
[2020-09-21] MEDS: MONTELUKAST 10 MG (SINGULAIR) TAB PO SCH (21:34)
[2020-09-21] MEDS: rOPINIRole 0.25 MG (REQUIP) TAB PO SCH (21:34)
[2020-09-21] MEDS: MELATONIN 3 MG TABLET PO PRN (21:35)
[2020-09-22] MEDS: RT--FLUTICASONE/SALMETEROL 232-14 (AIRDUO RespiCLICK) IH SCH (06:57)
[2020-09-22 08:00] VITALS: BP 124/64
--- NOTE | 2020-09-22 08:02 | Therapy Team Discharge Summary ---
Therapy Discharge Summary Discharge Recommendations Date of Discharge Occupational Therapy Pt admitted to ARU s/p CVA. At OF, pt was independent with ADLS and functional mobility, no AD/AE. Upon initial evaluation, pt was independent with eating, SBA oral care, CGA showering, SBA upper body dressing, min A lower body dressing, min A footwear and CGA toileting. OT txs focused on increasing BUE strength and activity tolerance, and increasing safety and independence with ADLs and functional mobility. At discharge, pt was independent with eating, oral care, and toileting, set up showedring, SBA upper body dressing, set up lower body dressing, SBA footwear and CGA toileting. Pt made progress towards goals, meeting independent level with eating, oral care and toileting, but did not attain other goals. Pt to discharge from facility on this date, d/c from OT at this time. Decreased Activ Tolerance, Decreased Safety Aware, Decreased UE Strength, Impa ired I ADL's, Impaired Self-Care Skills PT Control Analyst Goals Assisted Goals PT Assisted Goals Time Frame: October 02, 2020 Roll Left to Right (QC): 6 Sit to Lying (QC): 6 Lying-Sitting on Side/Bed(QC): 6 Sit to Stand (QC): 6 Chair/Veq-yd-Hrdnb Xfer(QC): 6 Car Transfer (QC): 6 Does the Patient Walk: Yes Walk 10 feet (QC): 6 Walk 10ft-Uneven Surface(QC): 6 Walk 50ft with 2 Turns (QC): 6 Walk 150 ft (QC): 6 Does the Pt use WC or Scooter?: No Wheel 50 feet with 2 turns (QC: 9 1 Step (curb) (QC): 6 4 Steps (QC): 6 12 Steps (QC): 6 Picking up an Object (QC): 6 OT Control Analyst Goals Control Analyst Goals Time Frame: Oct 08, 2020 Eating (QC): 6 (met) Oral Hygiene (QC): 6 (met) Shower/Bathe Self (QC): 6 (not met, set up) Upper Body Dressing (QC): 6 (not met, SBA) Lower Body Dressing (QC): 6 (not met, set up) On/Off Footwear (QC): 6 (not met, SBA) Toileting Hygiene (QC): 6 (met) Toilet/Commode Transfer (QC): 6 Additional Goals: 1-Demonstrate ADL Tasks, 2-Verbalize Understanding, 3- ImproveStrength/Yolanda 1=Demonstrate adherence to instructed precautions during ADL tasks. 2=Patient will verbalize/demonstrate understanding of assistive de vices/modifications for ADL. 3=Patient will improve strength/tolerance for activity to enable patient to perform ADL's. Speech Control Analyst Goals Control Analyst Goals Patient will improve independence of daily living tasks with minimal assistance. ANYA CARBALLO OT September 22, 2020 08:02
[2020-09-22] MEDS: LEVOTHYROXINE 75 MCG (LEVOTHROID) TABLET PO SCH (08:42)
[2020-09-22] MEDS: FAMOTIDINE 20 MG (PEPCID) TABLET PO SCH (08:42)
[2020-09-22] MEDS: VITAMIN D3 25 MCG (1,000 UNITS) TABLET PO SCH (08:42)
[2020-09-22] MEDS: LORATADINE (CLARITIN) 10 MG TAB PO SCH (08:42)
[2020-09-22] MEDS: SINEMET CR 50/200 (CARBIDOPA/LEVODOPA SA) TAB PO SCH ×2 (08:43→13:09)
--- NOTE | 2020-09-22 08:57 | Cardiology Progress Note ---
Subjective Date Seen by Provider: September 22, 2020 Time Seen by Provider: 08:30 Subjective/Events-last exam Pt sleeping in bed appears comfortable. No new complaints. Feeling well. Denies cp/palpitations/dizziness/syncope. Review of Systems General: No Chills, No Night Sweats HEENT: No Head Aches, No Visual Changes Pulmonary: No Dyspnea, No Cough Cardiovascular: No: Chest Pain, Palpitations Gastrointestinal: No: Nausea, Vomiting Genitourinary: No Dysuria, No Frequency Musculoskeletal: No: neck pain, shoulder pain Neurological: No: Weakness, Numbness Objective-Cardiology Exam Last Set of Vital Signs Vital Signs 09/22/20 09/22/20 08:00 09:07 Temp 36.4 Pulse 80 Resp 14 B/P (MAP) 124/64 (84) Pulse Ox 96 O2 Delivery Nasal Cannula O2 Flow Rate 2.00 Capillary Refill : General: Alert, Oriented X3, Cooperative HEENT: Atraumatic, PERRLA Neck: Supple, No JVD, No Thyromegaly Lungs: Clear to Auscultation, Normal Air Movement Heart: Regular Rate, Normal S1, Normal S2, No Murmurs Abdomen: Normal Bowel Sounds, Soft, No Tenderness, No Hepatosplenomegaly, No Masses Extremities: No Clubbing, No Cyanosis, No Edema Skin: No Rashes, No Breakdown, No Significant Lesion Neuro: Normal Gait, Normal Speech Psych/Mental Status: Mental Status NL, Mood NL A/P-Cardiology Admission Diagnosis Hemorrhagic CVA Generalized debility/weakness COPD DM Assessment/Plan Hemorrhagic CVA, 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 Feeling better. No further headache was reported. Continue with PT/ OT Normal blood pressure, no history of hypertension, continue to monitor blood pressure Generalized debility/weakness, continue PT/OT COPD, oxygen dependent, management per medical services DM, management per medical services Obesity Extobaccoism Multiple risk factors for underlying CAD, consider further workup as outpatient. Clinical Quality Measures DVT/VTE Risk/Contraindication: Contraindications-Pharm: Other *list below* Other: hemorrhagic cva Supervisory-Addendum Brief Verification & Attestation Participated in pt care: history, MDM, physical Personally performed: exam, history, MDM, supervision of care Care discussed with: Medical Student Procedures: n/a Results interpretation: Verified all documentation Verification and Attestation of Medical Student E/M Service A medical student performed and documented this service in my presence. I reviewed and verified all information documented by the medical student and made modifications to such information, when appropriate. I personally performed the physical exam and medical decision making. Patient was seen at bedside, going home today. No new complaint. Reported improvement in her headache Okay for discharge and follow-up as an outpatient Yasmine Thurman, September 22, 2020,14:21 LEONELA MOTLEY MED STUDENT September 22, 2020 8:57 am YASMINE THURMAN MD September 22, 2020 2:22 pm
--- NOTE | 2020-09-22 09:02 | Discharge Summary ---
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 COPD with 24/7 O2 dependence Former smoker HTN Falls Hypothyroidism Parkinson's disease Carotid stenosis HLP CVA ischemic type remotely in the past without residual Plan: IRF protocol Monitor closely Monitor BP Fall risk 09/12/20: DILLON management No issues otherwise 09/13/20: Monitor oxygen level Supportive care 09/14/20: Monitor closely O2 maintained IRF therapies 09/15/20: Monitor for falls Impulsiveness noted 09/16/20: Monitor closely DC laxatives 09/17/20: Monitor pain Fall risk 09/18/20: Monitor DILLON 09/19/20: Monitor BP Pain control 09/20/20: Monitor pain Fall risk 09/21/20: Monitor closely DC planned (1) Hemorrhagic stroke Status: Acute (2) Parkinson disease (3) Falls (4) Carotid stenosis, bilateral (5) Oxygen dependent (6) Depression (7) Hypothyroidism (8) Hypertension (9) Former smoker (10) Diabetes (11) COPD (chronic obstructive pulmonary disease) Status: Acute Discharge Summary Discharge Physical Examination Allergies: Coded Allergies: No Known Drug Allergies (Unverified , 03/15/18) Vitals & I&Os Vital Signs Date Time Temp Pulse Resp B/P (MAP) Pulse Ox O2 Delivery O2 Flow Rate FiO2 09/22/20 16:18 36.4 80 14 124/64 96 Nasal Cannula 2.00 General Appearance: Alert, Oriented X3, Cooperative Respiratory: Clear to Auscultation Cardiovascular: Regular Rate Neuro: Normal Gait, Normal Speech, Strength at 5/5 X4 Ext Psych/Mental Status: Mental Status NL Hospital Course Was the Problem List Reviewed?: Yes Hospital course: Pt had an uneventful twelve day hospital course after being admitted to hemorrhagic stroke, she had no ill effects or decompensation during hospital stay, she did participate in all therapy, cognition remained good but wavered at times, daughter concerned about that, had a caregiver so arranged fro home care. CT scan will be done on Sunday and bowels were moving at time of discharge so there were no concerns at time of discharge and she was in improved condition. Labs (last 24 hrs) Laboratory Tests 09/12/20 06:35: White Blood Count 8.5, Red Blood Count 3.96, Hemoglobin 12.4, Hematocrit 37, Mean Corpuscular Volume 94, Mean Corpuscular Hemoglobin 31, Mean Corpuscular Hemoglobin Concent 33, Red Cell Distribution Width 12.4, Platelet Count 230, Mean Platelet Volume 9.6, Immature Granulocyte % (Auto) 1, Neutrophils (%) (Auto) 62, Lymphocytes (%) (Auto) 25, Monocytes (%) (Auto) 10, Eosinophils (%) (Auto) 2, Basophils (%) (Auto) 1, Neutrophils # (Auto) 5.3, Lymphocytes # (Auto) 2.1, Monocytes # (Auto) 0.9, Eosinophils # (Auto) 0.2, Basophils # (Auto) 0.1, Immature Granulocyte # (Auto) 0.0, Sodium Level 138, Potassium Level 4.0, Chloride Level 101, Carbon Dioxide Level 24, Anion Gap 13, Blood Urea Nitrogen 14, Creatinine 0.76, Estimat Glomerular Filtration Rate > 60, BUN/Creatinine Ratio 18, Glucose Level 117H, Calcium Level 8.2L, Corrected Calcium 8.4L, Total Bilirubin 1.0, Aspartate Amino Transf (AST/SGOT) 21, Alanine Aminotransferase (ALT/SGPT) 8, Alkaline Phosphatase 63, Total Protein 6.5, Albumin 3.8 09/13/20 10:56: Glucometer 134H 09/20/20 06:00: White Blood Count 9.9, Red Blood Count 4.07, Hemoglobin 12.9, Hematocrit 38, Mean Corpuscular Volume 94, Mean Corpuscular Hemoglobin 32, Mean Corpuscular Hemoglobin Concent 34, Red Cell Distribution Width 12.1, Platelet Count 286, Me an Platelet Volume 9.8, Immature Granulocyte % (Auto) 1, Neutrophils (%) (Auto) 70, Lymphocytes (%) (Auto) 18, Monocytes (%) (Auto) 8, Eosinophils (%) (Auto) 2, Basophils (%) (Auto) 1, Neutrophils # (Auto) 6.9, Lymphocytes # (Auto) 1.8, Monocytes # (Auto) 0.8, Eosinophils # (Auto) 0.2, Basophils # (Auto) 0.1, Immature Granulocyte # (Auto) 0.1, Sodium Level 135, Potassium Level 4.0, Chloride Level 98, Carbon Dioxide Level 28, Anion Gap 9, Blood Urea Nitrogen 11, Creatinine 0.77, Estimat Glomerular Filtration Rate > 60, BUN/Creatinine Ratio 14, Glucose Level 118H, Calcium Level 8.6, Corrected Calcium 8.8, Total Bi lirubin 0.8, Aspartate Amino Transf (AST/SGOT) 17, Alanine Aminotransferase (ALT/SGPT) 13, Alkaline Phosphatase 72, Total Protein 6.5, Albumin 3.8 09/21/20 19:04: Urine Color YELLOW, Urine Clarity SL CLOUDY, Urine pH 5.5, Urine Specific Ely >=1.030, Urine Protein NEGATIVE, Urine Glucose (UA) NEGATIVE, Urine Ketones NEGATIVE, Urine Nitrite NEGATIVE, Urine Bilirubin NEGATIVE, Urine Urobilinogen 0.2, Urine Leukocyte Esterase 1+H, Urine RBC (Auto) NEGATIVE, Urine RBC NONE, Urine WBC 25-50H, Urine Squamous Epithelial Cells NONE, Urine Renal Epithelial Cells NONE, Urine Crystals NONE, Urine Bacteria NEGATIVE, Urine Casts NONE, Urine Mucus SMALLH, Urine Culture Indicated NO Pending Labs Laboratory Tests 09/12/20 06:35: White Blood Count 8.5, Red Blood Count 3.96, Hemoglobin 12.4, Hematocrit 37, Mean Corpuscular Volume 94, Mean Corpuscular Hemoglobin 31, Mean Corpuscular Hemoglobin Concent 33, Red Cell Distribution Width 12.4, Platelet Count 230, Mean Platelet Volume 9.6, Immature Granulocyte % (Auto) 1, Neutrophils (%) (Auto) 62, Lymphocytes (%) (Auto) 25, Monocytes (%) (Auto) 10, Eosinophils (%) (Auto) 2, Basophils (%) (Auto) 1, Neutrophils # (Auto) 5.3, Lymphocytes # (Auto) 2.1, Monocytes # (Auto) 0.9, Eosinophils # (Auto) 0.2, Basophils # (Auto) 0.1, Immature Granulocyte # (Auto) 0.0, Sodium Level 138, Potassium Level 4.0, Chloride Level 101, Carbon Dioxide Level 24, Anion Gap 13, Blood Urea Nitrogen 14, Creatinine 0.76, Estimat Glomerular Filtration Rate > 60, BUN/Creatinine Ratio 18, Glucose Level 117, Calcium Level 8.2, Corrected Calcium 8.4, Total Bilirubin 1.0, Aspartate Amino Transf (AST/SGOT) 21, Alanine Aminotransferase (ALT/SGPT) 8, Alkaline Phosphatase 63, Total Protein 6.5, Albumin 3.8 09/13/20 10:56: Glucometer 134 5/17/21 06:00: White Blood Count 9.9, Red Blood Count 4.07, Hemoglobin 12.9, Hematocrit 38, Mean Corpuscular Volume 94, Mean Corpuscular Hemoglobin 32, Mean Corpuscular Hemoglobin Concent 34, Red Cell Distribution Width 12.1, Platelet Count 286, Mean Platelet Volume 9.8, Immature Granulocyte % (Auto) 1, Neutrophils (%) (Auto) 70, Lymphocytes (%) (Auto) 18, Monocytes (%) (Auto) 8, Eosinophils (%) (Auto) 2, Basophils (%) (Auto) 1, Neutrophils # (Auto) 6.9, Lymphocytes # (Auto) 1.8, Monocytes # (Auto) 0.8, Eosinophils # (Auto) 0.2, Basophils # (Auto) 0.1, Immature Granulocyte # (Auto) 0.1, Sodium Level 135, Potassium Level 4.0, Ch loride Level 98, Carbon Dioxide Level 28, Anion Gap 9, Blood Urea Nitrogen 11, Creatinine 0.77, Estimat Glomerular Filtration Rate > 60, BUN/Creatinine Ratio 14, Glucose Level 118, Calcium Level 8.6, Corrected Calcium 8.8, Total Bilirubin 0.8, Aspartate Amino Transf (AST/SGOT) 17, Alanine Aminotransferase (ALT/SGPT) 13, Alkaline Phosphatase 72, Total Protein 6.5, Albumin 3.8 09/21/20 19:04: Urine Color YELLOW, Urine Clarity SL CLOUDY, Urine pH 5.5, Urine Specific [place] >=1.030, Urine Protein NEGATIVE, Urine Glucose (UA) NEGATIVE, Urine Ketones NEGATIVE, Urine Nitrite NEGATIVE, Urine Bilirubin NEGATIVE, Urine U robilinogen 0.2, Urine Leukocyte Esterase 1+, Urine RBC (Auto) NEGATIVE, Urine RBC NONE, Urine WBC 25-50, Urine Squamous Epithelial Cells NONE, Urine Renal Epithelial Cells NONE, Urine Crystals NONE, Urine Bacteria NEGATIVE, Urine Casts NONE, Urine Mucus SMALL, Urine Culture Indicated NO Discharge Home Medications: Active Scripts Active Hydrocodone-Acetamin 5-325 mg (Hydrocodone/Acetaminophen) 1 Each Tablet 0.5 Tab PO BID PRN Famotidine 20 Mg Tablet 20 Mg PO DAILY Sertraline HCl 100 Mg Tablet 100 Mg PO HS Levetiracetam 500 Mg Tablet 500 Mg PO BID Atorvastatin Calcium 80 Mg Tablet 80 Mg PO HS Reported Levothyroxine Sodium 150 Mcg Tablet 150 Mcg PO DAILY Vitamin D3 (Cholecalciferol (Vitamin D3)) 25 Mcg Tablet 25 Mcg PO DAILY Carbidopa-Levo ER 50-200 Tab (Carbidopa/Levodopa) 1 Each Tablet.er 1 Each PO TID Ropinirole HCl 0.5 Mg Tablet 0.5 Mg PO HS Montelukast Sodium 10 Mg Tablet 10 Mg PO HS Dulera 200 Mcg/5 Mcg Inhaler (Mometasone/Formoterol) 13 Gm Hfa.aer.ad 2 Puff IH BID Cetirizine HCl 10 Mg Tablet 10 Mg PO DAILY Instructions to patient/family Please see electronic discharge instructions given to patient. Diagnosis/Problems Diagnosis/Problems (1) Hemorrhagic stroke Status: Acute (2) Parkinson disease (3) Falls (4) Carotid stenosis, bilateral (5) Oxygen dependent (6) Depression (7) Hypothyroidism (8) Hypertension (9) Former smoker (10) Diabetes (11) COPD (chronic obstructive pulmonary disease) Status: Acute Clinical Quality Measures DVT/VTE Risk/Contraindication: Contraindications-Pharm: Other *list below* Other: hemorrhagic cva JUN LOUIS DO September 22, 2020 09:02
--- NOTE | 2020-09-22 15:26 | Therapy Team Discharge Summary ---
Therapy Discharge Summary Discharge Recommendations Date of Discharge Occupational Therapy Decreased Activ Tolerance, Decreased Safety Aware, Decreased UE Strength, Impaired I ADL's, Impaired Self-Care Skills Speech-Language Pathology Patient was admitted to the ARU s/p CVA. Patient was given the SLUMS with score in normal range of function. The OT and PT reported noted deficits in the areas of sequencing and ability to follow directions. Patient received skilled ST services with focus on improving cognitive function in these areas so that she c ould return home safer. Patient was discharged to her home where she lives alone. She will receive home health services and has family near by for support as needed. PT Fci Goals Senior Architectural Designer Goals PT [facility]ci Goals Time Frame: October 02, 2020 Roll Left to Right (QC): 6 Sit to Lying (QC): 6 Lying-Sitting on Side/Bed(QC): 6 Sit to Stand (QC): 6 Chair/Mun-br-Musvr Xfer(QC): 6 Car Transfer (QC): 6 Does the Patient Walk: Yes Walk 10 feet (QC): 6 Walk 10ft-Uneven Surface(QC): 6 Walk 50ft with 2 Turns (QC): 6 Walk 150 ft (QC): 6 Does the Pt use WC or Scooter?: No Wheel 50 feet with 2 turns (QC: 9 1 Step (curb) (QC): 6 4 Steps (QC): 6 12 Steps (QC): 6 Picking up an Object (QC): 6 OT Senior Architectural Designer Goals Senior Architectural Designer Goals Time Frame: Oct 08, 2020 Eating (QC): 6 (met) Oral Hygiene (QC): 6 (met) Shower/Bathe Self (QC): 6 (not met, set up) Upper Body Dressing (QC): 6 (not met, SBA) Lower Body Dressing (QC): 6 (not met, set up) On/Off Footwear (QC): 6 (not met, SBA) Toileting Hygiene (QC): 6 (met) Toilet/Commode Transfer (QC): 6 Additional Goals: 1-Demonstrate ADL Tasks, 2-Verbalize Understanding, 3- ImproveStrength/Yolanda 1=Demonstrate adherence to instructed precautions during ADL tasks. 2=Patient will verbalize/demonstrate understanding of assistive gallo se/modifications for ADL. 3=Patient will improve strength/tolerance for activity to enable patient to perform ADL's. Speech Fci Goals Fci Goals Patient will improve independence of daily living tasks with minimal assistance. ALISON MONTANEZ September 22, 2020 15:26
--- NOTE | 2020-09-22 16:16 | Therapy Team Discharge Summary ---
Therapy Discharge Summary Discharge Recommendations Date of Discharge Physical Therapy Patient came to rehab with (R) frontal intraparenchymal hemorrhage, intraventricular hemorrhage. Upon evaluation patient performed bed mobility and supine <-> sit with setup, sit <-> stand and transfers with CGA, car transfer with CGA, ambulated 150' with a rolling walker with CGA (including 50' with at least 2 turns of 90 degrees and 10' over an uneven surface), and went up and down 1 step without an AD with CGA. Patient has been performing bed mobility and transfer training, balance and endurance training, functional strengthening, stair training, gait training, and education. Patient has made some progress but has only met her fci goals for bed mobility and transfers. Now, patient performs bed mobility and transfers with independence, car transfer independent, ambulates 150' with a rolling walker with setup (including 50' with at least 2 turns of 90 degrees and 10' over an uneven surface), and can go up and down 4 steps using 2 handrails with CGA/SBA. Patient was discharged from this facility today and will be discharged from PT at this time. Occupational Therapy Decreased Activ Tolerance, Decreased Safety Aware, Decreased UE Strength, Impaired I ADL's, Impaired Self-Care Skills PT Longterm Goals Service Vehicle Operator Goals PT Service Vehicle Operator Goals Time Frame: October 02, 2020 Roll Left to Right (QC): 6 Sit to Lying (QC): 6 Lying-Sitting on Side/Bed(QC): 6 Sit to Stand (QC): 6 Chair/Uch-mf-Puonn Xfer(QC): 6 Car Transfer (QC): 6 Does the Patient Walk: Yes Walk 10 feet (QC): 6 Walk 10ft-Uneven Surface(QC): 6 Walk 50ft with 2 Turns (QC): 6 Walk 150 ft (QC): 6 Does the Pt use WC or Scooter?: No Wheel 50 feet with 2 turns (QC: 9 1 Step (curb) (QC): 6 4 Steps (QC): 6 12 Steps (QC): 6 Picking up an Object (QC): 6 OT Longterm Goals Longterm Goals Time Frame: Oct 08, 2020 Eating (QC): 6 (met) Oral Hygiene (QC): 6 (met) Shower/Bathe Self (QC): 6 (not met, set up) Upper Body Dressing (QC): 6 (not met, SBA) Lower Body Dressing (QC): 6 (not met, set up) On/Off Footwear (QC): 6 (not met, SBA) Toileting Hygiene (QC): 6 (met) Toilet/Commode Transfer (QC): 6 Additional Goals: 1-Demonstrate ADL Tasks, 2-Verbalize Understanding, 3- ImproveStrength/Yolanda 1=Demonstrate adherence to instructed precautions during ADL tasks. 2=Patient will verbalize/demonstrate understanding of assistive devices/modifications for ADL. 3=Patient will improve strength/tolerance for activity to enable patient to perform ADL's. Speech Service Vehicle Operator Goals Longterm Goals Patient will improve independence of daily living tasks with minimal assistance. SASHA MCCORD PT September 22, 2020 16:16
[2020-09-22 16:18] VITALS: BP 124/64
== END 2020-09-22 15:20 | disposition home health service (06) | DRG 57 ==
PROVIDERS: ADMIT Internal Medicine; ATTEND Internal Medicine
DX: I69.254 Hemiplegia and hemiparesis following other nontraumatic intracranial hemorrhage affecting left non-dominant side (principal); I69.292 Facial weakness following other nontraumatic intracranial hemorrhage; F63.9 Impulse disorder, unspecified; G20 Parkinson's disease; I10 Essential (primary) hypertension; G25.0 Essential tremor; J44.9 Chronic obstructive pulmonary disease, unspecified; E03.9 Hypothyroidism, unspecified; Z66 Do not resuscitate; E78.00 Pure hypercholesterolemia, unspecified; K21.9 Gastro-esophageal reflux disease without esophagitis; F32.9 Major depressive disorder, single episode, unspecified; I65.23 Occlusion and stenosis of bilateral carotid arteries; E66.9 Obesity, unspecified; E78.5 Hyperlipidemia, unspecified; Z68.32 Body mass index [BMI] 32.0-32.9, adult; Z99.81 Dependence on supplemental oxygen; Z87.891 Personal history of nicotine dependence; Z87.01 Personal history of pneumonia (recurrent); Z91.81 History of falling; Z86.73 Personal history of transient ischemic attack (TIA), and cerebral infarction without residual deficits
CPT/HCPCS: 36415; 80053; 81000; 82947; 85025; 93880; 94640; 94760

== ENCOUNTER → 2020-09-24 | Outpatient (CLI) | payer MEDICARE, OTHER ==
[~2020-09-24] MED LIST changes: +ATOR80TA64 PO; +ATOR80TA76 PO; +CARB1TAB41 PO; +CHOL100045 PO; +FAMO20TA5 PO; +HYDR-3922 PO; +LEVE500T6 PO; +LEVE500T99 PO; +LEVO150C4 PO; +LEVO150T6 PO; +SERT-414 PO; +ZANTAC PO
--- NOTE | 2020-09-24 10:59 | Diagnostic Imaging Report ---
PROCEDURE: CT head without contrast. TECHNIQUE: Multiple contiguous axial images were obtained through the brain without the use of intravenous contrast. Auto Exposure Controls were utilized during the CT exam to meet ALARA standards for radiation dose reduction. INDICATION: Headaches and stroke. The study is performed for follow-up. Correlation is made with head CT from 09/07/2020. There is a normal evolution of the intraparenchymal hematoma involving the right frontal lobe. The right frontal lobe hematoma is much less dense and appears to be smaller in size. The intraventricular blood noted on prior study is no longer visualized. Large area of encephalomalacia in the right frontal lobe is seen. Periventricular hypodensity is noted consistent with chronic microvascular ischemia. No new area of hemorrhage is detected. Cisterns are patent. Visualized paranasal sinuses are clear. IMPRESSION: Normal evolution of right frontal lobe and intraventricular hemorrhage when compared with prior study from 09/07/2020. No new area of hemorrhage is detected. Dictated by: Dictated on workstation # [id number]
== END ==
LOC: RAD 10:02
PROVIDERS: ATTEND Internal Medicine
DX: I63.9 Cerebral infarction, unspecified (principal)
CPT/HCPCS: 70450

== ENCOUNTER → 2020-11-24 | Outpatient (RCR) | payer MEDICARE, OTHER | LOC: CR 10-25 13:00 → CR3 10-27 13:11 | PROVIDERS: ATTEND Family Medicine | DX: Z29.8 Encounter for other specified prophylactic measures (principal) ==

== ENCOUNTER → 2020-12-31 | Outpatient (RCR) | payer MEDICARE, OTHER | LOC: CR3 12-01 13:00 | PROVIDERS: ATTEND Family Medicine | DX: Z29.8 Encounter for other specified prophylactic measures (principal) ==

== ENCOUNTER → 2021-02-02 | Outpatient (RCR) | payer MEDICARE, OTHER ==
[~2021-02-02] MED LIST changes: +CHOL10004 PO; -CHOL100045 PO
== END | disposition home or self-care (01) ==
LOC: CR3 01-03 13:15
PROVIDERS: ATTEND Family Medicine
DX: Z29.8 Encounter for other specified prophylactic measures (principal)

== ENCOUNTER 2021-03-04 15:06 | Outpatient (RCR) | payer MEDICARE, OTHER | END 2021-03-06 | LOC: CR3 15:06 | PROVIDERS: ATTEND Family Medicine | DX: Z29.8 Encounter for other specified prophylactic measures (principal) ==

== ENCOUNTER → 2021-04-06 | Outpatient (RCR) | payer MEDICARE, OTHER ==
[~2021-04-06] MED LIST changes: +MONT-40 PO; -MONT10TA32 PO
== END | disposition home or self-care (01) ==
LOC: CR3 03-07 13:52
PROVIDERS: ATTEND Family Medicine
DX: Z29.8 Encounter for other specified prophylactic measures (principal)

== ENCOUNTER 2021-06-03 14:03 | Outpatient (RCR) | payer MEDICARE, OTHER | END 2021-06-05 | disposition home or self-care (01) | LOC: CR3 14:03 | PROVIDERS: ATTEND Family Medicine | DX: Z29.8 Encounter for other specified prophylactic measures (principal) ==

== ENCOUNTER → 2021-07-06 | Outpatient (RCR) | payer MEDICARE, OTHER | END | disposition home or self-care (01) | LOC: CR3 06-06 14:11 | PROVIDERS: ATTEND Family Medicine | DX: Z29.8 Encounter for other specified prophylactic measures (principal) ==

== ENCOUNTER 2021-09-02 14:57 | Outpatient (RCR) | payer MEDICARE, OTHER ==
[~2021-09-02 14:57] MED LIST changes: +ACLI400A2 IH; -ACLI400A3 IH
== END 2021-09-03 | disposition home or self-care (01) ==
LOC: CR3 14:57
PROVIDERS: ATTEND Family Medicine
DX: Z29.8 Encounter for other specified prophylactic measures (principal)

== ENCOUNTER → 2021-09-12 | Outpatient (CLI) | payer MEDICARE, OTHER ==
[~2021-09-12] VITALS: Ht 160 cm; Wt 81.0 kg
[~2021-09-12] MED LIST changes: +ASPI81TA16 PO; +FLUT1DIS28 IH; +MULT-1136 PO; +PRIM50TA33 PO; +REQUIP
== END ==
LOC: PREOP 05:41
PROVIDERS: ATTEND Specialist
DX: Z01.818 Encounter for other preprocedural examination (principal); H25.11 Age-related nuclear cataract, right eye

== ENCOUNTER 2021-09-19 10:58 | Day surgery (SDC) | payer MEDICARE, OTHER ==
[~2021-09-19] VITALS: Ht 160 cm; Wt 81.0 kg
[2021-09-19 11:05] VITALS: BP 124/73
[2021-09-19] MEDS ORDERED: LIDOCAINE PF 1% 2 ML VIAL IR PRN (11:15)
[2021-09-19] MEDS ORDERED: TIMOLOL MALEATE 0.5% 5 ML (TIMOPTIC) BTL OU PRN (11:15)
[2021-09-19] MEDS ORDERED: POVIDONE (BETADINE) OPHTH SOLN 5% 30 ML OP ONE (11:15)
[2021-09-19] MEDS ORDERED: MOXIFLOXACIN OPHTH SOLN 5 MG/ML 0.3 ML SYRINGE OP ONE (11:15)
[2021-09-19] MEDS: TETRACAINE 0.5% OPHTH SOLN 4 ML BTL (SINGLE DOSE ONLY) OU PRN ×4 (11:15→11:35)
[2021-09-19] MEDS: PHENYLEPHRINE 10% OPHTH (NEO-SYN) 5 ML BTL OU SCH ×3 (11:25→11:35)
[2021-09-19] MEDS: TROPICAMIDE 1% OPH SOLN (MYDRIACYL) 15 ML BTL OP SCH ×3 (11:27→11:35)
[2021-09-19] MEDS ORDERED: MIDAZOLAM 2 MG/2 ML (VERSED) VIAL ONE (11:43)
--- NOTE | 2021-09-19 12:00 | Ophthalmologist Pre-Op Note ---
Pre-Operative Progress Note H&P Reviewed The H&P was reviewed, patient examined and no changes noted. Date H&P Reviewed: September 19, 2021 Time H&P Reviewed: 12:00 Pre-Op Dx Cataract, Right Eye JEN WEST MD September 19, 2021 12:00
--- NOTE | 2021-09-19 12:20 | Ophthalmology Operative Report ---
Cataract removal/placement IOL PREOPERATIVE DIAGNOSIS: Cataract Right Eye POSTOPERATIVE DIAGNOSIS: Cataract Right Eye PROCEDURE: Cataract removal and placement of posterior chamber implant, right eye SURGEON: Freddy West ANESTHESIA: Topical with sedation COMPLICATIONS: None ESTIMATED BLOOD LOSS: Minimal DESCRIPTION OF PROCEDURE: After proper informed consent was obtained, the patient, a 71 female, was taken to the Operating Room and the right eye was anesthetized with tetracaine. The right eye was then prepped and draped in the usual manner. A wire lid speculum was placed. A paracentesis was made at the left hand position. Preservative free lidocaine was injected into the anterior chamber followed by viscoelastic. A clear corneal incision was made in the temporal position. A capsulorrhexis was preformed and the central nuclear and cortical material were removed. The posterior capsule was polished and Collin 20.5 [id number] IOL was placed into the capsular bag. The residual viscoelastic was aspirated and balanced saline solution was injected into the anterior chamber. Moxifloxacin was injected into the anterior chamber. The wound was checked and found to be water tight. The patient tolerated the procedure well without complications. FREDDY WEST MD September 19, 2021 12:20
[2021-09-19 12:30] VITALS: BP 113/70
[2021-09-19] MEDS ORDERED: acetaZOLAMIDE ER 500 MG CAP (DIAMOX SEQUELS) PO ONE (13:15)
--- NOTE | 2021-09-19 13:43 | Anesthesia-General Post-Op ---
MAC Patient Condition Mental Status/LOC: Same as Preop Cardiovascular: Satisfactory Nausea/Vomiting: Absent Respiratory: Satisfactory Pain: Controlled Complications: Absent Post Op Complications Complications None Follow Up Care/Instructions Patient Instructions None needed. Anesthesiology Discharge Order Discharge Order Patient is doing well, no complaints, stable vital signs, no apparent adverse anesthesia problems. No complications reported per nursing. FLOWER GARCIA CRNA September 19, 2021 13:43
== END 2021-09-19 12:30 | disposition home or self-care (01) ==
LOC: SDC 10:58
PROVIDERS: ATTEND Specialist
DX: H25.9 Unspecified age-related cataract (principal); Z87.891 Personal history of nicotine dependence; Z79.82 Long term (current) use of aspirin
CPT/HCPCS: 66984; V2632

== ENCOUNTER 2021-09-30 15:19 | Outpatient (RCR) | payer MEDICARE, OTHER | END 2021-11-03 | disposition home or self-care (01) | LOC: CR3 15:19 | PROVIDERS: ATTEND Family Medicine | DX: Z29.8 Encounter for other specified prophylactic measures (principal) ==

== ENCOUNTER → 2021-10-05 | Outpatient (CLI) | payer MEDICARE, OTHER ==
--- NOTE | 2021-10-05 12:29 | Diagnostic Imaging Report ---
CLINICAL INDICATION: Patient has fallen twice in the last 6 months. Patient has back and pelvic pain. EXAMS: 1: X-ray of the lumbar spine, 5 views. 2: X-ray of the pelvis AP view. COMPARISON: None. FINDINGS: Partially visualized left curvature the thoracolumbar spine Lumbar spine shows no acute fracture or dislocation. There is moderate loss of disk space height at the L4 level. There is mild to moderate loss of disk space height at the L3-L4 level. There is lower lumbar spine facet arthropathy/hypertrophy of the lower lumbar spine. There are small spurs involving the lumbar spine. There is no pars defect. X-ray of the pelvis shows no acute fracture or dislocation. There is sclerosis of the bilateral sacroiliac joints. There is enthesopathy involving the ischium bilaterally and greater trochanters. There are degenerative spurs involving the symphysis pubis region. IMPRESSION: 1: X-ray of the lumbar spine and pelvis shows no acute lumbar spine fracture or dislocation. 2: There is degenerative disease of the lumbar spine, hips and pelvis. Dictated by: Dictated on workstation # [id number]
== END ==
LOC: RAD 11:55
DX: M47.816 Spondylosis without myelopathy or radiculopathy, lumbar region (principal); M16.10 Unilateral primary osteoarthritis, unspecified hip
CPT/HCPCS: 72110; 72170

== ENCOUNTER 2021-10-07 11:10 | Day surgery (SDC) | payer MEDICARE, OTHER ==
[~2021-10-07] VITALS: Ht 160 cm; Wt 81.0 kg
[2021-10-07] MEDS ORDERED: LIDOCAINE PF 1% 2 ML VIAL IR PRN (11:15)
[2021-10-07] MEDS ORDERED: POVIDONE (BETADINE) OPHTH SOLN 5% 30 ML OP ONE (11:15)
[2021-10-07] MEDS ORDERED: TIMOLOL MALEATE 0.5% 5 ML (TIMOPTIC) BTL OU PRN (11:15)
[2021-10-07] MEDS ORDERED: MOXIFLOXACIN OPHTH SOLN 5 MG/ML 0.3 ML SYRINGE OP ONE (11:15)
[2021-10-07] MEDS: TETRACAINE 0.5% OPHTH SOLN 4 ML BTL (SINGLE DOSE ONLY) OU PRN ×4 (11:20→11:37)
[2021-10-07] MEDS: PHENYLEPHRINE 10% OPHTH (NEO-SYN) 5 ML BTL OU SCH ×3 (11:26→11:37)
[2021-10-07] MEDS ORDERED: MIDAZOLAM 2 MG/2 ML (VERSED) VIAL ONE (11:26)
[2021-10-07] MEDS: TROPICAMIDE 1% OPH SOLN (MYDRIACYL) 15 ML BTL OP SCH ×3 (11:26→11:37)
[2021-10-07 11:29] VITALS: BP 128/63
--- NOTE | 2021-10-07 12:12 | Ophthalmologist Pre-Op Note ---
Pre-Operative Progress Note H&P Reviewed The H&P was reviewed, patient examined and no changes noted. Date H&P Reviewed: Oct 07, 2021 Time H&P Reviewed: 12:12 Pre-Op Dx Cataract, Left Eye JEN WEST MD Oct 07, 2021 12:12
[2021-10-07] MEDS ORDERED: acetaZOLAMIDE ER 500 MG CAP (DIAMOX SEQUELS) PO ONE (12:30)
--- NOTE | 2021-10-07 12:38 | Ophthalmology Operative Report ---
Cataract removal/placement IOL PREOPERATIVE DIAGNOSIS: Cataract Left Eye POSTOPERATIVE DIAGNOSIS: Cataract Left Eye PROCEDURE: Cataract removal and placement of posterior chamber implant, left eye SURGEON: Freddy West ANESTHESIA: Topical with sedation COMPLICATIONS: None ESTIMATED BLOOD LOSS: Minimal DESCRIPTION OF PROCEDURE: After proper informed consent was obtained, the patient, a 71 female, was taken to the Operating Room and the left eye was anesthetized with tetracaine. The left eye was then prepped and draped in the usual manner. A wire lid speculum was placed. A paracentesis was made at the left hand position. Preservative free lidocaine was injected into the anterior chamber followed by viscoelastic. A clear corneal incision was made in the temporal position. A capsulorrhexis was preformed and the central nuclear and cortical material were removed. The posterior capsule was polished and an Collin 20.5 AU00T0 was placed into the capsular bag. The residual viscoelastic was aspirated and balanced saline solution was injected into the anterior chamber. Moxifloxacin was injected into the anterior chamber. The wound was checked and found to be water tight. The patient tolerated the procedure well without complications. FREDDY WEST MD Oct 07, 2021 12:38
[2021-10-07 12:42] VITALS: BP 104/77
--- NOTE | 2021-10-07 13:35 | Anesthesia-General Post-Op ---
MAC Patient Condition Mental Status/LOC: Same as Preop Cardiovascular: Satisfactory Nausea/Vomiting: Absent Respiratory: Satisfactory Pain: Controlled Complications: Absent Post Op Complications Complications None Follow Up Care/Instructions Patient Instructions None needed. Anesthesiology Discharge Order Discharge Order Patient is doing well, no complaints, stable vital signs, no apparent adverse anesthesia problems. No complications reported per nursing. FLOWER GARCIA CRNA Oct 07, 2021 13:35
== END 2021-10-07 12:45 | disposition home or self-care (01) ==
LOC: SDC 11:10
PROVIDERS: ATTEND Specialist
DX: H25.9 Unspecified age-related cataract (principal); Z87.891 Personal history of nicotine dependence; Z79.82 Long term (current) use of aspirin
CPT/HCPCS: 66984; V2632

== ENCOUNTER 2021-12-30 13:30 | Outpatient (RCR) | payer MEDICARE, OTHER | END 2022-01-03 | disposition home or self-care (01) | LOC: CR3 13:30 | PROVIDERS: ATTEND Family Medicine | DX: Z29.8 Encounter for other specified prophylactic measures (principal) ==

== ENCOUNTER 2022-03-01 14:14 | Outpatient (RCR) | payer MEDICARE, OTHER ==
[~2022-03-01 14:14] MED LIST changes: -MOME13HF IH; -MOME13HF INH; +MOME13HF11 IH; +MOME13HF11 INH
== END 2022-03-05 | disposition home or self-care (01) ==
LOC: CR3 14:14
PROVIDERS: ATTEND Family Medicine
DX: Z29.8 Encounter for other specified prophylactic measures (principal)

== ENCOUNTER → 2022-03-15 | Outpatient (CLI) | payer MEDICARE, OTHER ==
--- NOTE | 2022-03-15 19:53 | Diagnostic Imaging Report ---
INDICATION: Pain. FINDINGS: 3 view left wrist shows osteoarthritic changes but no fracture, dislocation or acute appearing articular irregularity. IMPRESSION: Arthritis but no acute abnormality. Dictated by: Dictated on workstation # [id number]
== END ==
LOC: RAD 16:06
PROVIDERS: ATTEND Family Medicine
DX: M19.032 Primary osteoarthritis, left wrist (principal)
CPT/HCPCS: 73110

== ENCOUNTER 2022-04-19 13:41 | Outpatient (RCR) | payer MEDICARE, OTHER | END 2022-05-05 | disposition home or self-care (01) | LOC: CR3 13:41 | PROVIDERS: ATTEND Family Medicine | DX: Z29.8 Encounter for other specified prophylactic measures (principal) ==

== ENCOUNTER → 2022-06-29 | Outpatient (CLI) | payer MEDICARE, OTHER | LOC: ORTHO 15:38 | PROVIDERS: ATTEND Orthopaedic Surgery | DX: M65.4 Radial styloid tenosynovitis [de Quervain] (principal) | CPT/HCPCS: 20600; G0463 ==

== ENCOUNTER 2022-06-30 13:24 | Outpatient (RCR) | payer MEDICARE, OTHER | END 2022-07-06 | disposition home or self-care (01) | LOC: CR3 13:24 | PROVIDERS: ATTEND Family Medicine | DX: Z29.8 Encounter for other specified prophylactic measures (principal) ==

== ENCOUNTER 2022-09-01 15:36 | Outpatient (RCR) | payer MEDICARE, OTHER | END 2022-09-03 | disposition home or self-care (01) | LOC: CR3 15:36 | PROVIDERS: ATTEND Family Medicine | DX: Z29.8 Encounter for other specified prophylactic measures (principal) ==

== ENCOUNTER → 2022-11-03 | Outpatient (RCR) | payer MEDICARE, OTHER | END | disposition home or self-care (01) | LOC: CR3 09-04 11:41 | PROVIDERS: ATTEND Family Medicine | DX: Z29.8 Encounter for other specified prophylactic measures (principal) ==

== ENCOUNTER 2022-11-13 14:00 | Outpatient (RCR) | payer MEDICARE, OTHER | END 2023-01-03 | disposition home or self-care (01) | LOC: CR3 14:00 | PROVIDERS: ATTEND Family Medicine | DX: Z29.8 Encounter for other specified prophylactic measures (principal) ==

== ENCOUNTER → 2022-12-12 | Outpatient (CLI) | payer MEDICARE, OTHER ==
--- NOTE | 2022-12-12 14:41 | Diagnostic Imaging Report ---
INDICATION: Routine screening. Comparison is made with prior mammogram from 04/14/2016. 2-D and 3-D bilateral screening mammography was performed with CAD. Both breasts are heterogeneously dense, limiting the sensitivity of mammography. The right breast is stable. The asymmetry in the upper outer left breast at mid depth previously described appears stable as well. This was shown on ultrasound to represent a complicated cyst. No new mass or malignant-appearing microcalcifications are seen. Axillae are unremarkable. IMPRESSION: No mammographic features suspicious for malignancy are identified. ACR BI-RADS Category 2: Benign findings. Result letter will be mailed to the patient. Note: At least 10% of breast cancer is not imaged by mammography. BI-RADS Category 2 Dictated by: Dictated on workstation # [id number]
== END ==
LOC: RAD 12:48
PROVIDERS: ATTEND Family Medicine
DX: Z12.31 Encounter for screening mammogram for malignant neoplasm of breast (principal)
CPT/HCPCS: 77063; 77067

== ENCOUNTER → 2023-03-05 | Outpatient (RCR) | payer MEDICARE, OTHER ==
[~2023-03-05] MED LIST changes: +ROPI0.5T37 PO; -ROPI0.5T4 PO
== END | disposition home or self-care (01) ==
LOC: CR3 01-17 13:38
PROVIDERS: ATTEND Family Medicine
DX: Z01.89 Encounter for other specified special examinations (principal)